=== PATIENT | female | born 1990 | race Caucasian/White ===

== ENCOUNTER 2016-07-13 23:31 | Emergency (ER) | payer MEDICAID ==
[~2016-07-13] VITALS: Ht 162.6 cm; Wt 95.3 kg
[~2016-07-13 23:31] MED LIST: AMOX-358 PO; AMOX500C2 PO; ATOR40TA70; BENZ-13 PO; CEPH500T PO; CETI10CA PO; D-ME118S33 PO; DICY10CA12 PO; DOCU-143 PO; DOXY100C2; FAMO20TA3 PO; HYDR-3812 PO; Ibuprofen PO; METR500T21 PO; NORG1TAB15 PO; NORG1TAB16; PRAV20TA3 PO; PRD20T PO; PREN1TAB71 PO; PSEU-137 PO; SULF1TAB35 PO; TOPI50TA37 PO
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
[2016-07-13] MEDS ORDERED: RX-CLINDAMYCIN 150 MG (CLEOCIN) CAP PPK#4 PO STA (23:59)
[2016-07-14] MEDS ORDERED: LIDOCAINE 2% VISCOUS 15 ML UDC MM ONE
[2016-07-14] MEDS ORDERED: CEFD300C3 PO (00:03)
[2016-07-14] MEDS ORDERED: CEFDINIR 300 MG (OMNICEF) CAP PO ONE ×2 (00:03→00:15)
[2016-07-14] MEDS ORDERED: LIDO15SO2 MM (00:04)
--- NOTE | 2016-07-14 00:04 | ED EENT ---
History of Present Illness General Chief Complaint: Facial Problems Stated Complaint: FAICAL PAIN EAR ACHE Nursing Triage Note: Pt presents to ED with c/o L jaw pain. Afebrile in triage. Pt denies injury, reports this may be d/t seasonal allergies. Pt is , unaware of due date. LMP 05-14-16. Source: patient History of Present Illness Time seen by provider: 23:45 Initial Comments PT C/O PAIN TO LEFT SIDE OF FACE AND JAW FOR A FEW DAYS PAIN COMES AND GOES PT HAS ONGOING PROBLEMS WITH A BAD TOOTH TO LEFT LOWER 3RD MOLAR, WORSE FOR THE LAST 2 MONTHS NO FEVER NO SWELLING TO FACE/CHEEK/JAW NO RASH PT HAD SAME IN MAY AND WAS SEEN IN ER AND [facility] AND GIVEN RX FOR UNKNOWN ANTIBIOTICS AT [facility]. --STATES THOSE SYMPTOMS WENT AWAY PT HAS SEEN DR. SANTOS IN THE PAST --LAST VISIT WAS OVER 6 MONTHS AGO. HAS NOT ATTEMPTED TO CONTACT HIM FOR THIS PROBLEM PT HAS NOT TAKEN ANYTHING FOR PAIN AT ANY TIME PT STATES SHE IS 8 WEEKS --LMP 05/14/17--IS SEEING DR. MAO FOR OB CARE AND IS TO HAVE AN ULTRASOUND THIS WEEK PCP: [facility], SAADIA ROSALES Allergies and Home Medications Allergies Coded Allergies: erythromycin base (Unverified Allergy, Unknown, reports that her mother said to say that she was allergic to, 01/14/16) Home Medications Amoxicillin/Potassium Clav 1 Each Tablet #14 1 EACH PO BID Prescribed by: LA[place] LANDA on 06/01/161955 Atorvastatin Calcium 40 Mg Tablet #30 (Reported) Cefdinir 300 Mg Capsule #20 300 MG PO BID Prescribed by: ISIDRO ESQUEDA on 07/14/16 0003 Doxycycline Hyclate 100 Mg Capsule #20 (Reported) Famotidine 20 Mg Tablet 20 MG PO HS (Reported) Lidocaine HCl 15 Ml Solution #1 15 ML MM Q 1-2 HOURS Prescribed by: ISIDRO ESQUEDA on 07/14/16 0004 Norgestrel-Ethinyl Estradiol 1 Each Tablet #84 (Reported) Pseudoephedrine HCl 30 Mg Tablet #10 30 MG PO Q8H PRN PRN CONGESTION Prescribed by: LA[place] LANDA on 06/01/161955 Topiramate 50 Mg Tablet 50 MG PO BID (Reported) Review of Systems Constitutional: no symptoms reported Eyes: No Symptoms Reported Ears: No Symptoms Reported Nose: no symptoms reported Mouth: see HPI Throat: no symptoms reported Respiratory: no symptoms reported Cardiovascular: no symptoms reported Musculoskeletal: no symptoms reported Skin: no symptoms reported Neurological: No Symptoms ReportedDenies Headache, Denies Numbness, Denies Paresthesia Hematologic/Lymphatic: No Symptoms Reported Immunological/Allergic: no symptoms reported Past Iigvjge-Eztppz-Urbtji Hx Patient Social History Alcohol Use: Denies Use Recreational Drug Use: No Smoking Status: Current Everyday Smoker (1 PPD) Type Used: Cigarettes Recent Foreign Travel: No Contact w/Someone Who Travel: No Recent Infectious Disease Expo: No Recent Hopitalizations: No Physical Abuse Screen: No Sexual Abuse: No Immunizations Up To Date Tetanus Booster (TDap): Less than 5yrs PED Vaccines UTD: Yes Seasonal Allergies Seasonal Allergies: Yes Surgeries HX Surgeries: Yes (L WRIST) Surgeries: Appendectomy, Orthopedic Respiratory Hx Respiratory Disorders: No Cardiovascular Hx Cardiac Disorders: Yes Cardiac Disorders: High Cholesterol Neurological Hx Neurological Disorders: Yes Neurological Disorders: Headaches /Migraines Reproductive System : Yes Hx : 3 Hx Para: 2 Hx Reproductive Disorders: Yes Female Reproductive Disorders: Menstrual Problems Genitourinary Hx Genitourinary Disorders: No Gastrointestinal Hx Gastrointestinal Disorders: Yes (lactose intolerance) Gastrointestinal Disorders: Gastroesophageal Reflux, Irritable Bowel Musculoskeletal Hx Musculoskeletal Disorders: No Endocrine Hx Endocrine Disorders: No HEENT HX ENT Disorders: Yes (DENTAL CARIES) Cancer Hx Cancer: No Psychosocial Hx Psychiatric Problems: No Integumentary HX Skin/Integumentary Disorder: No Blood Transfusions Hx Blood Disorders: No Adverse Reaction to a Blood Tr: No Family Medical History Significant Family History: No Pertinent Family Hx Family Medial History: Patient reports no known family medical history. Physical Exam Vital Signs Vital Sign - Last 12Hours 07/13/16 23:37 Temp 98.0 Pulse 75 Resp 18 B/P 139/84 Pulse Ox 98 O2 Delivery Room Air General Appearance: WD/WN no apparent distress obese other (SITTING - STYLE. DOES NOT APPEAR TO BE IN ANY DISCOMFORT. ) Eyes: bilateral eye EOMI, bilateral eye PERRL, bilateral eye normal inspection Ears: bilateral ear TM normal, bilateral ear auricle normal, bilateral ear canal normal Nose: normal inspection Mouth/Throat: dental tendernessNo excessive drooling, No mandibular swelling, No maxillary swelling, other (DENTAL CARIES TO LEFT LOWER 3RD MOLAR, AND TOOTH TENDER TO PERCUSSION. NO SIGNIFICANT SWELLING AROUND TOOTH. NO FACIAL / MANDIBULAR SWELLING. NO RASH. NO MOTOR/SENSORY DEFICITS) Neck: non-tender full range of motion supple normal inspectionNo lymphadenopathy (R), No lymphadenopathy (L) Cardiovascular: regular rate, rhythm no murmur Respiratory: normal breath sounds no respiratory distress no accessory muscle use Gastrointestinal: non tender soft Neurologic/Psychiatric: dobby loom fixer II-XII nml as tested no motor/sensory deficits alert oriented x 3 Skin: normal color warm/dry Progress/Results/Core Measures Results/Orders My Orders Orders-ISIDRO ESQUEDA DO Rx-Clindamycin Capsule (Rx-Cleocin Capsu (07/13/16 23:59) Lidocaine 2% Viscous 15 Ml (Xylocaine Vi (07/14/16 00:00) Cefdinir Capsule (Omnicef Capsule) (07/14/16 00:15) Acetaminophen Tablet/Caplet (Tylenol T (07/14/16 00:11) Acetaminophen Tablet (Tylenol Tablet) (07/14/16 00:30) Cefdinir Capsule (Omnicef Capsule) (07/14/16 00:03) Medications Given in ED Current Medications Medications Dose Ordered Sig/Jessica Route Start Time Stop Time Status Last Admin Dose Admin Acetaminophen 325 mg STK-MED ONCE .ROUTE 07/14/16 00:11 07/14/16 00:18 DC 07/14/16 00:19 650 MG Cefdinir 300 mg ONCE ONCE PO 07/14/16 00:15 07/14/16 00:22 DC 07/14/16 00:18 300 MG Lidocaine HCl 5 ml ONCE ONCE MM 07/14/16 00:00 07/14/16 00:01 DC 07/14/16 00:18 5 ML Vital Signs/I&O Vital Sign - Last 12Hours 07/13/16 07/14/16 23:37 00:22 Temp 98.0 98.0 Pulse 75 75 Resp 18 18 B/P 139/84 Pulse Ox 98 98 O2 Delivery Room Air Blood Pressure Mean: 102 Departure Impression Impression: Primary Impression: Dental caries Additional Impression: Left facial pain Disposition: 01 HOME, SELF-CARE Condition: Stable Departure-Patient Inst. Referrals: KIARA MAO MD (PCP) Primary Care Physician ESTEFANIA TORRES DO (Family) Primary Care Physician Patient Instructions: Dental Pain (DC), Tooth Decay, Adult (DC) Add. Discharge Instructions: TYLENOL NEEDED FOR PAIN ALTERNATE ICE AND HEAT TO AREA AT 20 MINUTE INTERVALS NEEDED FOR COMFORT SOFT FOODS FOLLOW UP WITH DR. SANTOS THIS WEEK FOR FURTHER CARE All discharge instructions reviewed with patient and/or family. Voiced understanding. Scripts Lidocaine HCl (Lidocaine HCl Viscous)15 Ml [id number] Ml MM Q 1-2 HOURS Pain #1 EA Prov:ISIDRO ESQUEDA DO 07/14/16 Cefdinir 300 Mg [id number] Mg PO BID FOR INFECTION #20 CAP Prov:ISIDRO ESQUEDA DO 07/14/16 ISIDRO ESQUEDA DO Jul 14, 2016 00:04
[2016-07-14] MEDS ORDERED: ACETAMINOPHEN 325 MG TABLET/CAPLET (TYLENOL) ONE (00:11)
[2016-07-14 00:22] VITALS: BP 139/84
[2016-07-14] MEDS ORDERED: ACETAMINOPHEN 500 MG TAB (TYLENOL) PO ONE (00:30)
== END 2016-07-14 00:22 | disposition home or self-care (01) ==
LOC: EDUNIT# 23:31 → ER 23:34
DX: K02.9 Dental caries, unspecified (principal); O99.331 Smoking (tobacco) complicating pregnancy, first trimester; F17.210 Nicotine dependence, cigarettes, uncomplicated; Z3A.08 8 weeks gestation of pregnancy
CPT/HCPCS: 99283

== ENCOUNTER → 2016-07-17 | Outpatient (CLI) | payer MEDICAID ==
[~2016-07-17] MED LIST changes: +CEFD300C3 PO; +LIDO15SO2 MM
--- OUTSIDE RECORDS SUMMARY | 2016-07-17 10:26 | XMS REPORT | Continuity of Care Document ---
Author Author [facility] Organization [facility] Address Unknown Phone Unavailable Care Team Providers Care Glassware Maker Demonstrator Name Role Phone ESTEFANIA TORRES DO PCP Insurance Providers Payer Name Policy Number Subscriber Name Relationship [facility] [id number] Mary Kay Pichardo Self / Same As Patient Advance Directives Directive Response Recorded Date/Time Advance Directives No 02/11/16 10:38pm Health Care Power of Tractor Engine Assembler No 02/11/16 10:38pm Organ Donor Yes 02/11/16 [...] Discharge/Depart Date Attending Provider Discharged Recurring [facility] 02/18/16 10:30am 11:59pm CARISSA CARRERO MD
--- NOTE | 2016-07-17 13:52 | Diagnostic Imaging Report ---
OB ultrasound. INDICATION: Check size and dates. FINDINGS: There are no recent studies available for comparison. There is a gestational sac within the uterus containing a single live fetus. heart motion is noted and a rate of 161 bpm is recorded. The crown-rump length suggests the estimated gestational age is 9 weeks 2 days +/- 1 week. There are no obvious abnormalities identified. The amniotic fluid volume is within normal limits. At this time, it is not certain where the placenta will develop. There is no solid pelvic mass or free fluid collection identified. There is a 2.2 x 2.2 x 2.2 cm cyst associated with the right ovary. This may represent a corpus luteum cyst. The left ovary is unremarkable. IMPRESSION: 1. There is a single live intrauterine of approximately 9 weeks 2 days gestation +/- 1 week. The EDC is February 17, 2017. 2. There are no obvious abnormalities identified. If a more sensitive evaluation of anatomy is desired, then a follow-up exam in 10-12 weeks will be recommended. 3. There is a small benign-appearing right ovarian cyst. Dictated by: Dictated on workstation # [id number]
== END ==
LOC: RAD 10:22
PROVIDERS: ATTEND Family Medicine
DX: Z34.81 Encounter for supervision of other normal pregnancy, first trimester (principal)
CPT/HCPCS: 76801

== ENCOUNTER → 2016-09-18 | Outpatient (CLI) | payer MEDICAID ==
--- NOTE | 2016-09-18 18:04 | Diagnostic Imaging Report ---
OB ultrasound. INDICATION: survey. FINDINGS: The heart rate is 146 beats per minute. The placenta is posterior. No placenta previa. growth parameters include normal appearance of the posterior fossa, the four-chamber view, the stomach, the cord insertion, three-vessel cord, and the urinary bladder. The kidneys demonstrate no hydronephrosis or cystic mass. Only the upper aspect of the spine is seen with no definitive abnormality. The mid and lower spine is the not well seen. The growth parameters are biparietal diameter at 18 weeks and 6 days, head circumference 18 weeks and 2 days, abdominal circumference 18 weeks and 4 days, and femur length at 17 weeks and 5 days. These average at 18 weeks and 3 days. The current gestational age based on the first trimester ultrasound dating is 18 weeks and 3 days. IMPRESSION: Appropriate interval growth. Short-term follow-up is recommended to reevaluate spine. Dictated by: Dictated on workstation # [id number]
== END ==
LOC: RAD 13:31
PROVIDERS: ATTEND Family Medicine
DX: Z36 Encounter for antenatal screening of mother (principal); Z3A.18 18 weeks gestation of pregnancy
CPT/HCPCS: 76805

== ENCOUNTER → 2016-10-09 | Outpatient (CLI) | payer MEDICAID ==
--- NOTE | 2016-10-09 18:02 | Diagnostic Imaging Report ---
INDICATION: Further evaluation of anatomy not well seen on initial anatomy survey. COMPARISON: 09/18/2016. TECHNIQUE: Multi-projectional grayscale and Doppler imaging of the gravid uterus was performed. FINDINGS: Single live intrauterine with a heart rate of 142 beats per minute. Fetus is in variable position. The spine was much better visualized on today's examination and is normal in appearance. IMPRESSION: 1. spine is normal. Remainder of the anatomy survey was performed on 09/18/2016. Dictated by: Dictated on workstation # [id number]
== END ==
LOC: RAD 13:28
PROVIDERS: ATTEND Family Medicine
DX: Z36 Encounter for antenatal screening of mother (principal)
CPT/HCPCS: 76816

== ENCOUNTER 2016-12-07 16:52 | Outpatient (CLI) | payer MEDICAID ==
[~2016-12-07] VITALS: Ht 162.6 cm; Wt 115.7 kg
[2016-12-07] MEDS ORDERED: PREN1TAB86 PO (17:59)
[2016-12-07] MEDS ORDERED: ACET325T38 PO (18:00)
--- NOTE | 2016-12-08 13:43 | Physician Query-Final Dx ---
[facility] [facility] 12/08/16 1343: Clinic Account Progress/Dx Physician Query: Please give diagnosis Date of Service Dec 07, 2016 at 16:52 ANOOP HWANG MD 12/16/166: Clinic Account Progress/Dx DIAGNOSIS: Diagnosis 29 weeks gestation Abdominal pain Pelvic pressure [place] [facility] Dec 08, 2016 13:43 ANOOP HWANG MD Dec 16, 2016 20:56
== END 2016-12-07 18:10 | disposition home or self-care (01) ==
LOC: WSo 16:52 → LDRP 16:55 → WSo 18:10
PROVIDERS: ATTEND Family Medicine
DX: O99.89 Other specified diseases and conditions complicating pregnancy, childbirth and the puerperium (principal); R10.2 Pelvic and perineal pain; Z3A.29 29 weeks gestation of pregnancy
CPT/HCPCS: 99213

== ENCOUNTER → 2016-12-29 | Outpatient (CLI) | payer MEDICAID ==
[~2016-12-29] MED LIST changes: +ACET325T38 PO; +IBUP-1773 PO; +PREN1TAB86 PO
--- NOTE | 2016-12-29 14:22 | Diagnostic Imaging Report ---
INDICATION: Increased fundal height. TECHNIQUE: Multiple real-time grayscale images were obtained over the gravid uterus. COMPARISON: 09/18/2016. FINDINGS: heart rate is 135 beats per minute. The placenta is fundal. No placenta previa. The presentation varied during the exam. The amniotic fluid index is 20 cm. Biometrical measurements are as follows: Biparietal 8.6 cm, age 34 weeks 5 days, at the 89th percentile. Head circumference 30.59 cm, age 34 weeks 1 days, at 44th percentile. Abdominal circumference 30.81 cm, age 34 weeks 6 days, at 93rd percentile. Femur length 6.34 cm, age 32 weeks 6 days, at 36th percentile. Sonographic estimate age: 34 weeks 1 days. Sonographic estimated date of delivery: 02/08/2017. Estimated Weight: 2358 gm (+/- 344 gm). LMP percentile: 80%. heart rate: 135 beats per minute. number: 1 of 1. IMPRESSION: measurements near the upper limits of normal with the abdominal circumference measuring at the 93rd percentile. Dictated by: Dictated on workstation # [id number]
== END ==
LOC: RAD 09:49
PROVIDERS: ATTEND Family Medicine
DX: Z3A.34 34 weeks gestation of pregnancy; Z36 Encounter for antenatal screening of mother
CPT/HCPCS: 76816

== ENCOUNTER 2017-01-25 21:03 | Outpatient (CLI) | payer MEDICAID ==
[~2017-01-25] VITALS: Ht 162.6 cm; Wt 128.0 kg
[~2017-01-25 21:03] MED LIST changes: -IBUP-1773 PO
[2017-01-25 21:45] LABS: KETONES,URINE 2+ (NEGATIVE); LEUKOCYTE ESTERASE ,URINE 2+ (NEGATIVE); NITRITE,URINE NEGATIVE (NEGATIVE); PH,URINE 5 (5-9); PROTEIN,URINE 2+ (NEGATIVE); UROBILINOGEN,URINE NORMAL (NORMAL)
[2017-01-25 21:50] LABS: BILIRUBIN,URINE 1+ (NEGATIVE)
[2017-01-25 22:01] LABS: WBC,URINE 25-50 /HPF
[2017-01-25 22:02] LABS: SQUAMOUS EPITHELIAL CELL,UR >50 /HPF
[2017-01-25 22:12] VITALS: BP 141/89
--- NOTE | 2017-01-26 11:30 | Physician Query-Final Dx ---
[facility] [facility] 01/26/17 1130: Clinic Account Progress/Dx Physician Query: Please give diagnosis Date of Service Jan 25, 2017 at 21:03 ANOOP HWANG MD 01/30/17 0919: Clinic Account Progress/Dx DIAGNOSIS: Diagnosis 36 weeks gestation Decreased movement Contractions [place] Jan 26, 2017 11:30 ANOOP HWANG MD Jan 30, 2017 09:19
== END 2017-01-25 22:24 | disposition home or self-care (01) ==
LOC: LDRP 21:03 → WSo 21:03
PROVIDERS: ATTEND Family Medicine
DX: O36.8130 Decreased fetal movements, third trimester, not applicable or unspecified (principal); O47.03 False labor before 37 completed weeks of gestation, third trimester; Z3A.36 36 weeks gestation of pregnancy
CPT/HCPCS: 81000; 87077; 87088; 87186; 99213

== ENCOUNTER 2017-02-07 00:45 | Outpatient (CLI) | payer MEDICAID ==
[~2017-02-07] VITALS: Ht 162.6 cm; Wt 126.6 kg
[2017-02-07 01:27] LABS: BILIRUBIN,URINE NEGATIVE (NEGATIVE); KETONES,URINE 2+ (NEGATIVE); LEUKOCYTE ESTERASE ,URINE 1+ (NEGATIVE); NITRITE,URINE NEGATIVE (NEGATIVE); PH,URINE 6 (5-9); PROTEIN,URINE 2+ (NEGATIVE); UROBILINOGEN,URINE NORMAL (NORMAL)
[2017-02-07 01:34] LABS: SQUAMOUS EPITHELIAL CELL,UR >50 /HPF; WBC,URINE 0-2 /HPF
[2017-02-07 02:00] VITALS: BP 137/76
[2017-02-07 02:16] VITALS: BP 143/72
--- NOTE | 2017-02-09 11:44 | Physician Query-Final Dx ---
[facility] [facility] 02/09/17 1144: Clinic Account Progress/Dx Physician Query: Please give diagnosis Date of Service Feb 07, 2017 at 00:45 PEPE MEEK MD 03/02/17 1312: Clinic Account Progress/Dx DIAGNOSIS: Diagnosis Abdominal pain Leaking fluid [place] [facility] Feb 09, 2017 11:44 PEPE MEEK MD Mar 02, 2017 13:12
[2017-02-12] MEDS ORDERED: HYDR-3812 PO (07:52)
[2017-02-12] MEDS ORDERED: IBUP-1773 PO (07:52)
== END 2017-02-07 02:33 | disposition home or self-care (01) ==
LOC: WSo 00:45 → LDRP 00:46 → WSo 02:33
PROVIDERS: ATTEND Family Medicine
DX: O26.93 Pregnancy related conditions, unspecified, third trimester (principal); R10.9 Unspecified abdominal pain; Z3A.38 38 weeks gestation of pregnancy
CPT/HCPCS: 81000; 87077; 87088; 87186; 99214

== ENCOUNTER → 2017-02-09 | Outpatient (CLI) | payer MEDICAID ==
--- NOTE | 2017-02-09 14:27 | Diagnostic Imaging Report ---
INDICATION: position. COMPARISON: 12/29/2016. FINDINGS: heart tones are documented at 144 beats per minute. The fetus is in cephalic presentation. The amniotic fluid volume is normal. Largest vertical pocket is 6 cm. Cervix is well visualized and measures 5 cm. The placenta is advanced and is anterior. IMPRESSION: 1. Cephalic presentation. 2. Normal amniotic fluid volume. Dictated by: Dictated on workstation # [id number]
== END ==
LOC: RAD 13:41
PROVIDERS: ATTEND Family Medicine
DX: Z36 Encounter for antenatal screening of mother (principal); Z3A.00 Weeks of gestation of pregnancy not specified
CPT/HCPCS: 76815

== ENCOUNTER 2017-02-10 06:57 | Inpatient (IN) | payer MEDICAID ==
[2017-02-10] VITALS (49 sets, daily range): BP systolic 96–174; BP diastolic 52–100
[~2017-02-10] VITALS: Ht 163.8 cm; Wt 129.4 kg
--- NOTE | 2017-02-10 07:15 | History & Physical-OB ---
OB - Chief Complaint & HPI Date/Time Date of Admission: Date of Admission: Feb 10, 2017 at 06:57 Time Seen by Provider: 07:10 Chief Complaint/History OB-Reason for Admission/Chief: Induction of Labor Hx : 3 Hx Para: 2 Expected Date of Delivery: Feb 17, 2017 Gestational Age in Weeks: 39 Gestational Age in Days: 0 Admission Nurse Assessment Rev: Yes History of Labs GBS negative Allergies and Home Medications Allergies Coded Allergies: erythromycin base (Unverified Allergy, Unknown, reports that her mother said to say that she was allergic to, 01/14/16) Home Medications Acetaminophen 325 Mg Tablet, 1,000 MG PO PRN PRN for PAIN-MILD, (Reported) Famotidine 20 Mg Tablet, 20 MG PO HS, (Reported) Vit W-Ca,Fe,FA(<1 mg) 1 Each Tablet, 1 EACH PO DAILY, (Reported) OB - History Hx of Present Care: Yes Ultrasounds: Normal mid trimester US Obstetrical Complications: None Medical Complications: None Obstetrical History Hx Termination: No Hx Multiple Gestation: No Hx Stillbirth: No Hx Complication: No Hx Induced Hypertens: No Hx Maternal Gestational Diabet: Yes (pt. denies, states borderline w/1st del) Delivery History Hx Dystocia: No Hx Large For Gestational Age I: Yes Hx Small for Gestational Age I: No Hx Section: No Hx Vaginal Delivery Post C-Sec: No Hx Blood Disorders: No Adverse Rxn to Tranfusion: No Patient Past Medical History No chronic medical problems Immunizations Hepatitis A: No Hepatitis B: No Tetanus Booster (TDap): Less than 5yrs OB - Admission Exam Physical Exam Date Seen by Provider: Feb 10, 2017 Time Seen by Provider: 07:10 HEENT: Moist Membranes Heart: Rhythm Normal Lungs: Clear Abdomen: Non tender Cervical Dilatation: 3cm Effacement: 25% Station: -3 Membranes: Intact Heart Rate: 140's Accelerations: Accelerations Present Decelerations: No Decelerations Short Term Variability: Present Genetic Scientist Variability: Average (6-25) Contractions on Admission: >10 Minutes Apart Intensity: Mild Tim Scoring Tool (Modified) Dilation (cm): 3-4cm (2) Effacement (%): 0-30% (0) Descent/Station: -3 (0) Cervix Consistency: Soft (2) Cervix Position: Middle/Mid-Position (1) Add 1 point for: Each previous vaginal delivery (1) Tim Score: 7 OB - Assessment/Plan/Diagnosis Assessment Assessment: induction of labor (at 39 weeks.) Plan Plan: Induction Induction Method: AROM (with pit to follow if needed) Other Plan desires epidural KIARA MAO MD Feb 10, 2017 07:15
[2017-02-10] MEDS ORDERED: OXYTOCIN/NORMAL SALINE 500 ML IV SCH ×2 (07:22→16:48)
[2017-02-10] MEDS ORDERED: D5 LR IV SOLUTION 1,000 ML IV SCH (07:22)
[2017-02-10 07:54] LABS: BASOPHILS % (AUTO) 0 % (0-10); EOSINOPHILS # (AUTO) 0.1 10^3/uL (0.0-0.3); EOSINOPHILS % (AUTO) 1 % (0-10); LYMPHOCYTES % (AUTO) 23 % (12-44); MEAN CORPUSCULAR HEMOGLOBIN 30 PG (25-34); MEAN CORPUSCULAR HGB CONC 34 G/DL (32-36); MEAN CORPUSCULAR VOLUME 88 FL (80-99); MEAN PLATELET VOLUME 11.3 FL (7.4-10.4); MONOCYTES # (AUTO) 0.6 X 10^3 (0.0-1.0); MONOCYTES % (AUTO) 7 % (0-12); NEUTROPHILS # (AUTO) 5.9 X 10^3 (1.8-7.8); NEUTROPHILS % (AUTO) 68 % (42-75); PLATELET COUNT 151 10^3/uL (130-400); RED BLOOD COUNT 4.04 10^6/uL (4.35-5.85); RED CELL DISTRIBUTION WIDTH 14.9 % (10.0-14.5); WHITE BLOOD COUNT 8.7 10^3/uL (4.3-11.0)
[2017-02-10] MEDS ORDERED: SUFENTA 0.6MCG/ML BUPIVA 0.125 100 ML ONE (08:27)
[2017-02-10] MEDS ORDERED: fentaNYL INJECTION 100 MCG/2 ML AMP ONE (08:29)
[2017-02-10] MEDS ORDERED: BUPIVACAINE 0.25% 30 ML (SENSORCAINE) VIAL ONE (08:29)
--- OUTSIDE RECORDS SUMMARY | 2017-02-10 10:20 | XMS REPORT ---
Author Author GIULIA RAE Organization [employer] Address Unknown Phone Unavailable Care Team Providers Care Restaurant Mgr Name Role Phone GIULIA RAE CP Unavailable Allergies, Adverse Reactions, Alerts Substance Reaction Event Type N.K.D.A. Info Not Available Non Drug Allergy Problems Problem Type Condition Code Onset Dates Condition Status Assessment Sore throat J02.9 Active Problem Sore throat J02.9 Active Medications Medication Code System Code Instructions Start Date End Date Status Dosage Triamcinolone Acetonide [facility] [address]-00 0.1 % Externally Twice a day December 05, 2014 1 application to affected area Pepcid [facility] [address]-92 20 MG Orally Once a day 1 tablet at bedtime Anti-Diarrheal [facility] [address]-24 not defined Colace [facility] [address]-65 100 MG Orally 2 times a day 1 capsule as needed Vitamins NDC 0 (Dis) Orally Once a day 1 tablet Amoxicillin [facility] [address]-78 500 MG Orally every 12 hrs May 22, 2015 Jun 01, 2015 2 tablets Procedures Procedure Coding System Code Date Office Visit, Est Pt., Level 3 CPT-4 15269 May 22, 2015 STREP A ASSAY W/OPTIC CPT-4 56827 May 22, 2015 Vital Signs Date/Time: May 22, 2015 Temperature 97.7 F Weight 239.8 lbs Height 65 in BMI 39.90 Index Blood Pressure Diastolic 82 mmHg Blood Pressure Systolic 120 mmHg Cardiac Monitoring Heart Rate 89 bpm Results No Known Results Summary Purpose [employer] Submission
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
--- OUTSIDE RECORDS SUMMARY | 2017-02-10 10:21 | XMS REPORT ---
Author Author CRISTA ROSALES [facility] [employer] Address Unknown Phone Unavailable Care Team Providers Care Railroad Brakeman Name Role Phone CRISTA ROSALES CP Unavailable Allergies No Known Allergies Problems Problem Type Condition Code Onset Dates Condition Status Problem Galactorrhea in female N64.3 Active Problem Pain in left knee M25.562 Active Problem Pain in right knee M25.561 Active Problem History of anemia Z86.2 Active Problem Neutropenia D70.9 Active Problem Abnormal thyroid blood test R94.6 Active Problem Mixed hyperlipidemia E78.2 Active Problem Panic attacks F41.0 Active Problem History of palpitations Z87.898 Active Problem Acute maxillary sinusitis, recurrence not specified J01.00 Active Problem Major depressive disorder, single episode, unspecified F32.9 Active Problem Overweight E66.3 Active Problem Migraine headache G43.909 Active Problem Leukopenia D72.819 Active Problem Headache R51 Active Problem History of long-term use of multiple prescription drugs Z92.29 Active Problem Unprotected sex Z72.51 Active Problem Pelvic pain R10.2 Active Problem High risk sexual behavior Z72.51 Active Problem Heart burn R12 Active Problem Contraception management Z30.9 Active Medications No Known Medications Results No Known Results Summary Purpose [employer] Submission
--- OUTSIDE RECORDS SUMMARY | 2017-02-10 10:21 | XMS REPORT ---
Author Author CRISTA ROSALES [facility] Address [address] [place] [address] Care Team Providers Care Hog Operator Name Role Phone CRISTA ROSALES Unavailable PROBLEMS Type Condition ICD9-CM Code [id number] Code Onset Dates Condition Status SNOMED Code Problem Headache R51 Active 748219500 Problem Heart burn R12 Active 31141536 Problem Migraine headache G43.909 Active 32423242 Assessment History of UTI Z87.440 Feb, Active 5319872508541 Problem Mixed hyperlipidemia E78.2 Active 409405186 Problem History of anemia Z86.2 Active 767356849 Problem Panic attacks F41.0 Active 18712346 Problem History of long-term use of multiple prescription drugs Z92.29 Active 949547485 Problem Abnormal thyroid blood test R94.6 Active 992683788 Problem Major depressive disorder, single episode, unspecified F32.9 Active 37499216 ALLERGIES Substance Reaction Event Type Date Status N.K.D.A. Unknown Non Drug Allergy Feb, Unknown SOCIAL HISTORY No smoking Hx information available PLAN OF CARE Activity Details Pending Test CMP 2 - 3 Days,Reason: VITAL SIGNS Height 65 in 2016-03-05 Weight 187.6 lbs 2016-03-05 Heart Rate 88 bpm 2016-03-05 Respiratory Rate 16 2016-03-05 BMI 31.21 kg/m2 2016-03-05 Blood pressure systolic 132 mmHg 2016-03-05 Blood pressure diastolic 78 mmHg 2016-03-05 MEDICATIONS Medication Instructions Dosage Frequency Start Date End Date Duration Status Pravastatin Sodium 20 mg Orally Once a day 1 tablet 24h Nov, Active Topamax 50 MG Orally bid 1 tablet 12h 30 Active Ortho Tri-Cyclen (28) 0.18/0.215/0.25 MG-35 MCG Orally Once a day 1 tablet 24h Aug, 28 day(s) Active Colace 100 MG Orally 2 times a day 1 capsule as needed 12h Active Vitamins (Dis) Orally Once a day 1 tablet 24h Active Pepcid 20 mg Orally Once a day 1 tablet at bedtime 24h Active RESULTS Name Result Date Reference Range UA LONG DIP (IN HOUSE) 2016-03-05 Lot # Exp date Clarity clear Color yellow Odor GLU negative GERRI negative KET negative SG 1.025 BLO negative pH 6.5 Protein negative URO 0.2 NIT negative ARNOLDO negative Lot # Exp date TSH 2016-03-05 TSH 1.110 0.450-4.500 PROCEDURES Procedure Date Ordered Related Diagnosis Body Site URINALYSIS, AUTO, W/O SCOPE Mar 05, 2016 ASSAY THYROID STIM HORMONE Mar 05, 2016 VENIPUNCT, ROUTINE* Mar 05, 2016 Office Visit, Est Pt., Level 3 Mar 05, 2016 COMPREHEN METABOLIC PANEL Mar 05, 2016 IMMUNIZATIONS No Known Immunizations
--- OUTSIDE RECORDS SUMMARY | 2017-02-10 10:21 | XMS REPORT ---
Author Author MIGUEL CHRISTIAN [facility] eClinicalWorks Address Unknown Phone Unavailable Care Team Providers Care Supervisor Char House Name Role Phone MIGUEL CHRISTIAN CP Unavailable Allergies No Known Allergies Problems Problem Type Condition Code Onset Dates Condition Status Problem Galactorrhea in female N64.3 Active Problem Pain in left knee M25.562 Active Problem Pain in right knee M25.561 Active Problem History of anemia Z86.2 Active Problem Neutropenia D70.9 Active Problem Abnormal thyroid blood test R94.6 Active Assessment Major depressive disorder, single episode, unspecified F32.9 Active Assessment Panic attacks F41.0 Active Problem Mixed hyperlipidemia E78.2 Active Problem [...] management Z30.9 Active Medications No Known Medications Procedures Procedure Coding System Code Date Psych diagnostic evaluation, established patient CPT-4 06308 December 26, 2015 Results No Known Results Summary Purpose eClinicalWorks Submission
--- OUTSIDE RECORDS SUMMARY | 2017-02-10 10:22 | XMS REPORT ---
Author Author CRISTA ROSALES [facility] Address [address] [place] [address] Care Team Providers Care Senior Hr Generalist Name Role Phone CRISTA ROSALES Unavailable PROBLEMS Type Condition ICD9-CM Code [id number] Code Onset Dates Condition Status SNOMED Code Problem Headache R51 Active 326064199 Problem Heart burn R12 Active 68195510 Problem Migraine headache G43.909 Active 92729509 Problem Mixed hyperlipidemia E78.2 Active 578953081 Problem History of anemia Z86.2 Active 667988497 Problem Panic attacks F41.0 Active 45671095 Problem History of long-term use of multiple prescription drugs Z92.29 Active 724636078 Problem Abnormal thyroid blood test R94.6 Active 577854156 Problem Major depressive disorder, single episode, unspecified F32.9 Active 95384362 ALLERGIES Unknown Allergies SOCIAL HISTORY No smoking Hx information available PLAN OF CARE VITAL SIGNS MEDICATIONS Medication Instructions Dosage Frequency Start Date End Date Duration Status Fish Oil Feb, Apr, Active RESULTS No Results PROCEDURES No Known procedures IMMUNIZATIONS No Known Immunizations
--- OUTSIDE RECORDS SUMMARY | 2017-02-10 10:22 | XMS REPORT ---
Author Author YEN THACKER [facility] eClinicalWorks Address Unknown Phone Unavailable Care Team Providers Care Vascular Technician Name Role Phone YEN THACKER CP Unavailable Allergies, Adverse Reactions, Alerts Substance [...] Abnormal thyroid blood test R94.6 Active Assessment Upper respiratory tract infection, unspecified type J06.9 Active Problem Mixed hyperlipidemia E78.2 Active Problem [...] Active Problem Contraception management Z30.9 Active Medications Medication Code System Code Instructions Start Date End Date Status Dosage Pepcid [facility] [address]-71 20 MG Orally Once a day 1 tablet at bedtime Amoxicillin [facility] [address]-57 500 MG Orally 3 times a day January 04, 2016 January 14, 2016 1 tablet PredniSONE [facility] [address]-27 20 mg Orally Once a day January 04, 2016December 2 tablets Topamax [facility] [address]-13 50 MG Orally bid 1 tablet Pravastatin Sodium [facility] [address]-48 20 mg Orally Once a day November 23, 2015 1 tablet Ortho Tri-Cyclen (28) [facility] [address]-03 0.18/0.215/0.25 MG-35 MCG Orally Once a day August 29, 2015 1 tablet Procedures Procedure Coding System Code Date Office Visit, Est Pt., Level 3 CPT-4 28287 January 04, 2016 MEASURE BLOOD OXYGEN LEVEL CPT-4 51333 January 04, 2016 Vital Signs Date/Time: January 04, 2016 Cardiac Monitoring Heart Rate 84 bpm Weight 189.8 lbs Height 65 in Blood Pressure Diastolic 60 mmHg Blood Pressure Systolic 114 mmHg Results No Known Results Summary Purpose eClinicalWorks Submission
--- OUTSIDE RECORDS SUMMARY | 2017-02-10 10:22 | XMS REPORT ---
Author Author CRISTA ROSALES [facility] eClinicalWorks Address Unknown Phone Unavailable Care Team Providers Care Hog Room Supervisor Name Role Phone CRISTA ROSALES CP Unavailable [...]
--- OUTSIDE RECORDS SUMMARY | 2017-02-10 10:22 | XMS REPORT ---
Author Author CRISTA ROSALES [facility] eClinicalWorks Address Unknown Phone Unavailable Care Team Providers Care Vehicle Detailer Name Role Phone CRISTA ROSALES Unavailable Allergies, Adverse Reactions, Alerts Substance Reaction Event Type N.K.D.A. Info Not Available Non Drug Allergy Problems Problem Type Condition Code Onset Dates Condition Status Assessment Headache R51 Active Problem Pain of right thumb M79.644 Active Problem Headache R51 Active Problem Overweight E66.3 Active Assessment Encounter for immunization Z23 Active Assessment Pain of right thumb M79.644 Active Problem Sore throat J02.9 Active Assessment Overweight E66.3 Active Medications Medication Code System Code Instructions Start Date End Date Status Dosage Anti-Diarrheal [facility] [address]-92 not defined Amoxicillin [facility] [address]-44 500 mg Orally Twice a day 1 tablet Triamcinolone Acetonide [facility] [address]-42 0.5 % Externally Twice a day May 24, 2015 1 application to affected area Colace [facility] [address]-68 100 MG Orally 2 times a day 1 capsule as needed Vitamins NDC 0 (Dis) Orally Once a day 1 tablet Pepcid [facility] [address]-08 20 MG Orally Once a day 1 tablet at bedtime Procedures Procedure Coding System Code Date COMPREHEN METABOLIC PANEL CPT-4 59523 May 31, 2015 COMPLETE CBC W/AUTO DIFF WBC CPT-4 80702 May 31, 2015 ASSAY THYROID STIM HORMONE CPT-4 84221 May 31, 2015 SINGLE IMMUNIZATION ADMIN CPT-4 33232 May 31, 2015 Office Visit, Est Pt., Level 4 CPT-4 52835 May 31, 2015 X-RAY EXAM OF HAND CPT-4 90982 May 31, 2015 FLUARIX QUAD (3 & UP)-GSK-2014 CPT-4 06197 May 31, 2015 VENIPUNCT, ROUTINE* CPT-4 99176 May 31, 2015 Vital Signs Date/Time: May 31, 2015 Temperature 97.3 F Weight 236.0 lbs Height 65 in BMI 39.27 Index Blood Pressure Diastolic 76 mmHg Blood Pressure Systolic 122 mmHg Cardiac Monitoring Heart Rate 76 bpm Results Name Result Date Reference Range Unit Abnormality Flag ROUTINE VENIPUNCTURE Immunizations Vaccine Administration Date FLUARIX QUAD (3 & UP)-[facility]-2014May 31, 2015 Summary Purpose eClinicalWorks Submission
--- OUTSIDE RECORDS SUMMARY | 2017-02-10 10:22 | XMS REPORT ---
Author Author CRISTA ROSALES [facility] Address [address] [place] [address] Care Team Providers Care Multimedia Artist Name Role Phone CRISTA ROSALES Unavailable PROBLEMS Type Condition ICD9-CM Code [id number] Code Onset Dates Condition Status SNOMED Code Problem Headache R51 Active 829397098 Problem Heart burn R12 Active 43811280 Problem Migraine headache G43.909 Active 50763810 Problem Mixed hyperlipidemia E78.2 Active 389387968 Problem History of anemia Z86.2 Active 329858307 Problem Panic attacks F41.0 Active 73126384 Problem History of long-term use of multiple prescription drugs Z92.29 Active 270048541 Problem Abnormal thyroid blood test R94.6 Active 283700782 Problem Major depressive disorder, single episode, unspecified F32.9 Active 78536578 ALLERGIES Unknown Allergies SOCIAL HISTORY No smoking Hx information available PLAN OF CARE VITAL SIGNS MEDICATIONS Medication Instructions Dosage Frequency Start Date End Date Duration Status Fish Oil 1000 MG Orally Once a day at hs 2 tablets Feb, Active RESULTS No Results PROCEDURES No Known procedures IMMUNIZATIONS No Known Immunizations
--- OUTSIDE RECORDS SUMMARY | 2017-02-10 10:22 | XMS REPORT ---
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
--- OUTSIDE RECORDS SUMMARY | 2017-02-10 10:22 | XMS REPORT ---
Author Author CRISTA ROSALES [facility] eClinicalWorks Address Unknown Phone Unavailable Care Team Providers Care Mixed Animal Veterinarian Name Role Phone CRISTA ROSALES CP Unavailable Allergies, Adverse Reactions, Alerts Substance Reaction Event Type N.K.D.A. Info Not Available Non Drug Allergy Problems Problem Type Condition Code Onset Dates Condition Status Problem Headache R51 Active Problem Migraine headache G43.909 Active Problem Overweight E66.3 Active Problem Contraception management Z30.9 Active Problem High risk sexual behavior Z72.51 Active Problem Galactorrhea in female N64.3 Active Problem Heart burn R12 Active Problem Pelvic pain R10.2 Active Problem Unprotected sex Z72.51 Active Problem History of long-term use of multiple prescription drugs Z92.29 Active Assessment Galactorrhea in female N64.3 Active Assessment Pelvic pain R10.2 Active Assessment Knee pain, right M25.561 Active Problem Neutropenia D70.9 Active Assessment Knee pain, left M25.562 Active Problem Leukopenia D72.819 Active Medications Medication Code System Code Instructions Start Date End Date Status Dosage ZyrTEC NDC 0 10 MG Orally Once a day August 29, 2015 October 28, 2015 1 tablet as needed Colace [facility] [address]-15 100 MG Orally 2 times a day 1 capsule as needed Topamax [facility] [address]-37 50 MG Orally bid 1 tablet Vitamins NDC 0 (Dis) Orally Once a day 1 tablet Pepcid [facility] [address]-69 20 MG Orally Once a day 1 tablet at bedtime Procedures Procedure Coding System Code Date No Charge CPT-4 39984 October 10, 2015 X-RAY EXAM OF KNEE, 1 OR 2 CPT-4 73924 October 10, 2015 LAB NOT BILLED BY [facility] CPT-4 NOBLL October 10, 2015 URINALYSIS, AUTO, W/O SCOPE CPT-4 37645 October 10, 2015 URINE TEST CPT-4 16918 October 10, 2015 Office Visit, Est Pt., Level 5 CPT-4 50878 October 10, 2015 Vital Signs Date/Time: October 10, 2015 Temperature 97.1 F Weight 212.6 lbs Height 65 in BMI 35.37 Index Blood Pressure Diastolic 72 mmHg Blood Pressure Systolic 112 mmHg Cardiac Monitoring Heart Rate 88 bpm Results Name Result Date Reference Range Unit Abnormality Flag TRICHOMONAS (IN HOUSE) ----Lot # [id number] ----Exp date 20151010 ----TRICHOMONAS negative 20151010 ----Control + 20151010 UA LONG DIP (IN HOUSE) ----NIT Negative 20151010 ----Odor No 20151010 ----Color Yellow 20151010 ----URO 0.2 20151010 ----GERRI Negative 20151010 ----Protein Negative 20151010 ----GLU Negative 20151010 ----pH 7.0 20151010 ----Lot # [id number] 20151010 ----Exp date 20151010 ----Lot # [id number] 20151010 ----Clarity Clear 20151010 ----ARNOLDO TRACE 20151010 ----Exp date 20151010 ----BLO TRACE 20151010 ----KET Negative 20151010 ----SG 1.020 20151010 ROUTINE VENIPUNCTURE TEST, URINE (IN HOUSE) ----Exp date 20151010 ----Lot # [id number] 20151010 ----Control + 20151010 ----RESULTS Negative 20151010 Summary Purpose eClinicalWorks Submission
--- OUTSIDE RECORDS SUMMARY | 2017-02-10 10:22 | XMS REPORT ---
Author Author CRISTA ROSALES Organization eClinicalWorks Address Unknown Phone Unavailable Care Team Providers Care Representative Name Role Phone CRISTA ROSALES CP Unavailable [...] Active Problem Panic attacks F41.0 Active Medications No Known Medications Results No Known Results Summary Purpose eClinicalWorks Submission
--- OUTSIDE RECORDS SUMMARY | 2017-02-10 10:22 | XMS REPORT ---
Author Author CRISTA ROSALES [facility] eClinicalWorks Address Unknown Phone Unavailable Care Team Providers Care Supervisor Compounding And Finishing Name Role Phone CRISTA ROSALES CP Unavailable [...]
--- OUTSIDE RECORDS SUMMARY | 2017-02-10 10:22 | XMS REPORT ---
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
--- OUTSIDE RECORDS SUMMARY | 2017-02-10 10:22 | XMS REPORT ---
Author Author CRISTA ROSALES [facility] Address [address] [place] [address] Care Team Providers Care Planned Giving Officer Name Role Phone CRISTA ROSALES Unavailable PROBLEMS Type Condition ICD9-CM Code [id number] Code Onset Dates Condition Status SNOMED Code Problem Headache R51 Active 064364649 Problem Heart burn R12 Active 11488495 Problem Migraine headache G43.909 Active 16524253 Assessment Abnormal cholesterol test E78.9 Feb, Active 549032922 Problem Mixed hyperlipidemia E78.2 Active 882946381 Problem History of anemia Z86.2 Active 932814659 Problem Panic attacks F41.0 Active 65673422 Problem History of long-term use of multiple prescription drugs Z92.29 Active 443069441 Problem Abnormal thyroid blood test R94.6 Active 078346700 Problem Major depressive disorder, single episode, unspecified F32.9 Active 32577327 ALLERGIES Unknown Allergies SOCIAL HISTORY No smoking Hx information available PLAN OF CARE VITAL SIGNS MEDICATIONS Unknown Medications RESULTS Name Result Date Reference Range LIPID PANEL 2016-03-06 Cholesterol, Total 224 100-199 Triglycerides 182 0-149 HDL Cholesterol 38 >39 VLDL Cholesterol Oscar 36 5-40 LDL Cholesterol Calc 150 0-99 Comment: PROCEDURES Procedure Date Ordered Related Diagnosis Body Site LIPID PANEL Mar 06, 2016 VENIPRAYMUNDO, ROUTINE* Mar 06, 2016 IMMUNIZATIONS No Known Immunizations
--- OUTSIDE RECORDS SUMMARY | 2017-02-10 10:22 | XMS REPORT ---
Author Author SAMINA REN Organization eClinicalWorks Address Unknown Phone Unavailable Care Team Providers Care Hog Buyer Name Role Phone SAMINA REN CP Unavailable Allergies, Adverse Reactions, Alerts Substance Reaction Event Type N.K.D.A. Info Not Available Non Drug Allergy Problems Problem Type Condition Code Onset Dates Condition Status Assessment Insect bite of shoulder S40.269A Active Problem Sore throat J02.9 Active Medications Medication Code System Code Instructions Start Date End Date Status Dosage Pepcid [facility]NOTE 2] [address]-89 20 MG Orally Once a day 1 tablet at bedtime Triamcinolone Acetonide [facility]NOTE 2] [address]-00 0.1 % Externally Twice a day December 05, 2014 1 application to affected area Triamcinolone Acetonide [facility]NOTE 2] [address]-31 0.5 % Externally Twice a day May 24, 2015 1 application to affected area Amoxicillin [facility]NOTE 2] [address]-36 500 mg Orally Twice a day 1 tablet Procedures Procedure Coding System Code Date Office Visit, Est Pt., Level 3 CPT-4 13683 May 24, 2015 Vital Signs Date/Time: May 24, 2015 Temperature 97.7 F Weight 239 lbs Height 65 in BMI 39.77 Index Blood Pressure Diastolic 82 mmHg Blood Pressure Systolic 122 mmHg Cardiac Monitoring Heart Rate 90 bpm Results No Known Results Summary Purpose eClinicalWorks Submission
--- OUTSIDE RECORDS SUMMARY | 2017-02-10 10:23 | XMS REPORT ---
Author Author CRISTA ROSALES [facility] eClinicalWorks Address Unknown Phone Unavailable Care Team Providers Care Senior Medical Billing Specialist Name Role Phone CRISTA ROSALES Unavailable Allergies, Adverse Reactions, Alerts Substance Reaction Event Type N.K.D.A. 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 findings Z01.419 Active Problem Pelvic pain R10.2 Active Problem Evaluation regarding contraception options Z30.09 Active Problem Overweight E66.3 Active Problem Pain of right thumb M79.644 Active Problem Migraine headache G43.909 Active Problem Vaginal discharge N89.8 Active Assessment Migraine headache G43.909 Active Assessment Pelvic pain R10.2 Active Assessment 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 [address]-30 25 MG Orally once daily x 7 days then bid Jun 1 tablet Colace [facility] [address]-95 100 MG Orally 2 times a day 1 capsule as needed Pepcid [facility] [address]-43 20 MG Orally Once a day 1 tablet at bedtime Triamcinolone Acetonide [facility] [address]-83 0.5 % Externally Twice a day May 24, 2015 1 application to affected area Anti-Diarrheal [facility] [address]-10 not defined Vitamins ND 0 (Dis) Orally Once a day 1 tablet Procedures Procedure Coding System Code Date Office Visit, Est Pt., Level 4 CPT-4 14467 Jun 27, 2015 DEPO PROVERA (150 MG/ML) CPT-4 J1050 Jun 27, 2015 URINE TEST CPT-4 67547 Jun 27, 2015 No Charge CPT-4 71371 Jun 27, 2015 THER/PROPH/DIAG INJ, SC/IM CPT-4 96046 Jun 27, 2015 TRICHOMONAS ASSAY W/OPTIC CPT-4 99349 Jun 27, 2015 CULTURE, BACTERIA, OTHER CPT-4 03005 Jun 27, 2015 Vital Signs Date/Time: Jun 27, 2015 Temperature 97.9 F Weight 235.4 lbs Height 65 in BMI 39.17 Index Blood Pressure Diastolic 84 mmHg Blood Pressure Systolic 122 mmHg Cardiac Monitoring Heart Rate 80 bpm Results Name Result Date Reference Range Unit Abnormality Flag TEST, URINE (IN HOUSE) ----RESULTS negative 20150627 ----Lot # [id number] ----Control + 20150627 ----Exp date 20150627 TRICHOMONAS (IN HOUSE) ----Exp date 20150627 ----Control + 20150627 ----Lot # [id number] ----TRICHOMONAS negative 20150627 Summary Purpose eClinicalWorks Submission
--- OUTSIDE RECORDS SUMMARY | 2017-02-10 10:23 | XMS REPORT ---
Author Author CRISTA ROSALES Organization eClinicalWorks Address Unknown Phone Unavailable Care Team Providers Care Locker Room Clerk Name Role Phone CRISTA ROSALES CP Unavailable [...] of multiple prescription drugs Z92.29 Active Assessment Pelvic pain in female 625.9 Active Problem Neutropenia D70.9 Active Problem Leukopenia D72.819 Active Medications No Known Medications Results No Known Results Summary Purpose eClinicalWorks Submission
--- OUTSIDE RECORDS SUMMARY | 2017-02-10 10:23 | XMS REPORT ---
Author Author CRISTA ROSALES [facility] Address [address] [place] [address] Care Team Providers Care Human Resources Project Manager Name Role Phone CRISTA ROSALES Unavailable PROBLEMS Type Condition ICD9-CM Code [id number]-DK Code Onset Dates Condition Status SNOMED Code Problem History of long-term use of multiple prescription drugs Z92.29 Active 386627097 Problem Major depressive disorder, single episode, unspecified F32.9 Active 31176348 Problem Panic attacks F41.0 Active 417929753 Problem Migraine headache G43.909 Active 12401722 Problem Heart burn R12 Active 07863670 Problem Anxiety and depression F41.8 Active 944146310 Problem 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 Active 02265742 Problem History of anemia Z86.2 Active 686184315 Problem Abnormal thyroid blood test R94.6 Active 732258196 Problem Late menses N91.0 Active 513052214 Problem Mixed hyperlipidemia E78.2 Active 257375710 ALLERGIES Unknown Allergies SOCIAL HISTORY No smoking Hx information available PLAN OF CARE VITAL SIGNS MEDICATIONS Unknown Medications RESULTS No Results PROCEDURES No Known procedures IMMUNIZATIONS No Known Immunizations
--- OUTSIDE RECORDS SUMMARY | 2017-02-10 10:23 | XMS REPORT ---
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 Problem Abnormal thyroid blood test R94.6 Active Problem Mixed hyperlipidemia E78.2 Active Problem Pain in left knee M25.562 Active Problem Pain in right knee M25.561 Active Problem Acute maxillary sinusitis, recurrence not specified J01.00 Active Problem History of palpitations Z87.898 Active Problem Leukopenia D72.819 Active Problem Headache R51 Active Assessment 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 Active Problem Neutropenia D70.9 Active Problem Pelvic pain R10.2 Active Problem Heart burn R12 Active Problem Overweight E66.3 Active Problem History of long-term use of multiple prescription drugs Z92.29 Active Problem Migraine headache G43.909 Active Problem Unprotected sex Z72.51 Active Medications No Known Medications Procedures Procedure Coding System Code Date Office Visit, Est Pt., Level 3 CPT-4 88565 December 20, 2015 Vital Signs Date/Time: December 20, 2015 Blood Pressure Diastolic 64 mmHg Blood Pressure Systolic 118 mmHg Height 65 in Results No Known Results Summary Purpose eClinicalWorks Submission
--- OUTSIDE RECORDS SUMMARY | 2017-02-10 10:23 | XMS REPORT ---
Author Author IVON ROSE eClinicalWorks Address Unknown Phone Unavailable Care Team Providers Care Drilling Machine Operator Name Role Phone IVON ROSE CP Unavailable Allergies, Adverse Reactions, Alerts Substance Reaction Event Type N.K.D.A. Info Not Available Non Drug Allergy Problems Problem Type Condition Code Onset Dates Condition Status Assessment Vaginal discharge N89.8 Active Problem Migraine headache G43.909 Active Problem Headache R51 Active Assessment Vaginal yeast infection B37.3 Active Problem History of anemia Z86.2 Active Problem Abnormal thyroid blood test R94.6 Active Problem Mixed hyperlipidemia E78.2 Active Problem History of long-term use of multiple prescription drugs Z92.29 Active Problem Heart burn R12 Active Problem Major depressive disorder, single episode, unspecified F32.9 Active Problem Panic attacks F41.0 Active Medications Medication Code System Code Instructions Start Date End Date Status Dosage Lipitor [facility] [address]-50 10 MG Orally Once a day 1 tablet Pepcid [facility] [address]-18 20 mg Orally Once a day 1 tablet at bedtime Topamax [facility] 25729170592 50 MG Orally bid 1 tablet Fish Oil [facility] [address]-04 1000 MG Orally Once a day at hs Mar 17, 2016 2 tablets Vitamins [facility] [address]-09 (Dis) Orally Once a day 1 tablet Ortho Tri-Cyclen (28) [facility] [address]-36 0.18/0.215/0.25 MG-35 MCG Orally Once a day August 29, 2015 1 tablet Diflucan [facility] [address]-31 150 MG Orally one time dose, may repeat in 72 hours if still having symptoms Apr 22, 2016 Apr 23, 2016 1 tablet Colace [facility] [address]-53 100 MG Orally 2 times a day 1 capsule as needed Procedures Procedure Coding System Code Date TRICHOMONAS ASSAY W/OPTIC CPT-4 20094 Apr 22, 2016 CULTURE, BACTERIA, OTHER CPT-4 73871 Apr 22, 2016 KELLY VAG, DNA, DIR PROBE CPT-4 49416 Apr 22, 2016 URINE TEST CPT-4 86403 Apr 22, 2016 No Charge CPT-4 72144 Apr 22, 2016 Office Visit, Est Pt., Level 3 CPT-4 42186 Apr 22, 2016 Vital Signs Date/Time: Apr 22, 2016 Cardiac Monitoring Heart Rate 80 bpm Weight 191.2 lbs Height 65 in BMI 31.81 Index Blood Pressure Diastolic 78 mmHg Blood Pressure Systolic 112 mmHg Results Name Result Date Reference Range Unit Abnormality Flag BACTERIAL VAGINOSIS (IN HOUSE) ----Lot # [id number] ----Exp date 20160422 ----RESULTS negative [id number] ----Control + [id number] TEST, URINE (IN HOUSE) ----RESULTS Negative [id number] ----Lot # [id number] ----Control + [id number] ----Exp date 20160422 TRICHOMONAS (IN HOUSE) ----Exp date 20160422 ----Control + [id number] ----Lot # [id number] ----TRICHOMONAS NEGATIVE [id number] Summary Purpose eClinicalWorks Submission
[2017-02-10] MEDS ORDERED: LACTATED RINGERS 1,000 ML IV ONE (10:28)
[2017-02-10] MEDS ORDERED: NALOXONE 0.4 MG/ML 1 ML (NARCAN) VIAL IV PRN (10:30)
[2017-02-10] MEDS ORDERED: diphenhydrAMINE 50 MG/ML INJ (BENADRYL) IV PRN (10:30)
[2017-02-10] MEDS ORDERED: CATHETER FLUSH 10 ML SYR IV PRN (10:30)
[2017-02-10] MEDS ORDERED: EPIDURAL (SUFENTA 0.6MCG/ML BUPIVA 0.125%) 100 ML BAG EPI SCH (10:30)
[2017-02-10] MEDS ORDERED: ONDANSETRON 4 MG/2 ML (SDV) Z0FRAN IV PRN (10:30)
[2017-02-10] MEDS ORDERED: CATHETER FLUSH 10 ML SYR IV SCH ×2 (14:00→22:00)
[2017-02-10] MEDS ORDERED: IBUPROFEN 600 MG (MOTRIN) TAB PO ONE (16:37)
--- NOTE | 2017-02-10 16:53 | OB Labor & Delivery Record ---
L&D History Date of Service Date of Service: Feb 10, 2017 History Expected Date of Delivery: Feb 17, 2017 Gestational Age in Weeks: 39 Hx : 3 Hx Para: 2 Complications Events: Routine care Operative Indications (Cesarea: N/A-Vaginal Delivery Intrapartal Events: None L&D Stage1 Stage One Onset of Labor - Date: Feb 10, 2017 Onset of Labor - Time: 07:00 Monitors and Tracing Monitor Mode: Internal Heart Rate: 130 Monitor Accelerations: Uniform Monitor Decelerations: None Station: -4 [facility] Variability: Average (6-10) Short Term Variability: Present Presentation: Vertex Vital Signs VS - Last 72 Hours, by Label 02/10/17 02/10/17 02/10/17 02/10/17 07:15 08:10 08:20 08:35 Pulse 109 99 96 98 Resp 20 20 20 20 B/P (MAP) 174/77 134/88 138/85 163/100 O2 Delivery Room Air Room Air Room Air Room Air 02/10/17 02/10/17 02/10/17 02/10/17 08:50 08:55 09:00 09:05 Pulse 95 97 107 90 Resp 20 20 18 18 B/P (MAP) 144/86 141/90 147/96 120/60 Pulse Ox 99 98 98 O2 Delivery Room Air Room Air Room Air Room Air 02/10/17 02/10/17 02/10/17 02/10/17 09:10 09:15 09:30 09:45 Pulse 101 89 96 104 Resp 18 18 20 20 B/P (MAP) 126/64 123/76 131/75 126/75 Pulse Ox 98 98 98 98 O2 Delivery Room Air Room Air Room Air Room Air 02/10/17 02/10/17 02/10/17 02/10/17 10:00 10:15 10:30 10:45 Pulse 93 90 92 91 Resp 20 20 20 20 B/P (MAP) 115/70 122/68 111/63 112/62 Pulse Ox 98 99 98 99 O2 Delivery Room Air Room Air Room Air Room Air 02/10/17 02/10/17 02/10/17 02/10/17 11:00 11:15 11:30 11:45 Pulse 95 93 92 92 Resp 20 20 20 20 B/P (MAP) 122/66 96/52 118/70 118/70 Pulse Ox 100 98 99 99 O2 Delivery Room Air Room Air Room Air Room Air 02/10/17 02/10/17 02/10/17 02/10/17 12:00 12:15 12:30 12:45 Pulse 95 100 95 95 Resp 20 18 18 20 B/P (MAP) 117/68 121/68 121/71 122/65 Pulse Ox 98 99 98 98 O2 Delivery Room Air Room Air Room Air Room Air 02/10/17 02/10/17 02/10/17 02/10/17 13:00 13:15 13:30 13:50 Temp 98.4 Pulse 99 95 95 96 Resp 20 20 18 18 B/P (MAP) 131/89 126/68 126/81 117/65 Pulse Ox 98 98 98 98 O2 Delivery Room Air Room Air Room Air Room Air 02/10/17 02/10/17 02/10/17 02/10/17 14:05 14:20 14:35 14:50 Pulse 91 95 92 96 Resp 18 18 20 20 B/P (MAP) 118/66 124/65 116/59 110/65 Pulse Ox 99 97 97 98 O2 Delivery Room Air Room Air Room Air Room Air 02/10/17 02/10/17 02/10/17 02/10/17 15:05 15:20 15:35 15:50 Pulse 96 93 94 96 Resp 20 18 18 18 B/P (MAP) 125/70 122/77 122/74 126/79 Pulse Ox 95 98 98 95 O2 Delivery Room Air Room Air Room Air Room Air Signs of Distress by FHT Signs of Distress no Rupture of Membranes Spontaneous Ruture of Membrane: No Amniotic Membrane Rupture Time: 0732 Amniotic Membrane Fluid Desc.: Clear Induction/Anesthesia Epidural Cath Placement - Time: 0853 L&D Stage2 Stage Two Stage II Date: Feb 10, 2017 Stage II Time: 16:17 Monitors and Tracing Monitor Mode: Internal Heart Rate: 130 Monitor Accelerations: Uniform Monitor Decelerations: None Seo Manager Variability: Average (6-10) Short Term Variability: Present Position: Left Occiput Anterior Presentation: Vertex Signs of Distress by FHT Signs of Distress no Cord Descript/Complications Cord Vessel Description: 3 Vessels Delivery Type Delivery Method: Spontaneous Vaginal Anterior Shoulder: Left Episiotomy/Perineal Laceration Laceraction(s)/Extensions: Yes Episiotomy Description: Periurethral Extnsion/lac (R) Condition of Delivery 1 minute Comment: 8 5 minute Comment: 9 Condition of Condition of : Living Exam: No Observed Abnormalities Resuscitation Resuscitation: N/A - Spontaneous Resp L&D Stage3 Stage Three Stage III Date: Feb 10, 2017 Stage III Time: 16:22 Pictocin Pitocin Administration mu/min: 6 Pitocin ml/hr: 6 Placenta Delivery Placenta Delivery: Spontaneous Delivery Summary Summary Vaginal blood loss >500ml: No 250 Condition of Delivery Examined: Cervix Examined Post Hemorrhage: No KIARA MAO MD Feb 10, 2017 16:53
[2017-02-10] MEDS ORDERED: MEASLES,MUMPS,RUBELLA 1 EA INJ SQ ONE (17:00)
[2017-02-10] MEDS ORDERED: BENZOCAINE/MENTHOL (DERMOPLAST) 56 ML CAN TP PRN (17:00)
[2017-02-10] MEDS ORDERED: TETANUS,DIPTH,PERTUSS P/F (BOOSTRIX) 0.5 ML VIAL IM ONE (17:00)
[2017-02-10] MEDS ORDERED: WITCH HAZEL(TUCKS) 40 EA JAR TOP PRN (17:00)
[2017-02-10] MEDS: IBUPROFEN 600 MG (MOTRIN) TAB PO SCH (23:54)
[2017-02-11] VITALS (7 sets, daily range): BP systolic 115–170; BP diastolic 65–101
[2017-02-11 06:19] LABS: BASOPHILS % (AUTO) 0 % (0-10); EOSINOPHILS # (AUTO) 0.1 10^3/uL (0.0-0.3); EOSINOPHILS % (AUTO) 1 % (0-10); LYMPHOCYTES # (AUTO) 1.5 X 10^3 (1.0-4.0); LYMPHOCYTES % (AUTO) 17 % (12-44); MEAN CORPUSCULAR HEMOGLOBIN 30 PG (25-34); MEAN CORPUSCULAR HGB CONC 33 G/DL (32-36); MEAN CORPUSCULAR VOLUME 89 FL (80-99); MEAN PLATELET VOLUME 11.3 FL (7.4-10.4); MONOCYTES # (AUTO) 0.7 X 10^3 (0.0-1.0); MONOCYTES % (AUTO) 7 % (0-12); NEUTROPHILS # (AUTO) 7.1 X 10^3 (1.8-7.8); NEUTROPHILS % (AUTO) 76 % (42-75); PLATELET COUNT 140 10^3/uL (130-400); RED CELL DISTRIBUTION WIDTH 14.8 % (10.0-14.5); WHITE BLOOD COUNT 9.3 10^3/uL (4.3-11.0)
[2017-02-11] MEDS: IBUPROFEN 600 MG (MOTRIN) TAB PO SCH ×3 (06:53→21:33)
--- NOTE | 2017-02-11 07:51 | Progress Note (SOAP) ---
Subjective Subjective/Events-last exam No current complaints. Up walking around. Review of Systems Date Seen by Provider: Feb 11, 2017 Time Seen by Provider: 07:40 Objective Exam Last Set of Vital Signs Vital Signs Date Time Temp Pulse Resp B/P (MAP) Pulse Ox O2 Delivery O2 Flow Rate FiO2 02/11/17 04:00 98.4 83 20 144/87 98 Room Air Capillary Refill : General: No Acute Distress Lungs: Clear to Auscultation Abdomen: Soft (with uterus firm) Results/Procedures Lab Laboratory Tests 02/11/17 06:05: White Blood Count 9.3, Red Blood Count 3.80L, Hemoglobin 11.3L, Hematocrit 34L, Mean Corpuscular Volume 89, Mean Corpuscular Hemoglobin 30, Mean Corpuscular Hemoglobin Concent 33, Red Cell Distribution Width 14.8H, Platelet Count 140, Mean Platelet Volume 11.3H, Neutrophils (%) (Auto) 76H, Lymphocytes (%) (Auto) 17, Monocytes (%) (Auto) 7, Eosinophils (%) (Auto) 1, Basophils (%) (Auto) 0, Neutrophils # (Auto) 7.1, Lymphocytes # (Auto) 1.5, Monocytes # (Auto) 0.7, Eosinophils # (Auto) 0.1, Basophils # (Auto) 0.0 Assessment/Plan Assessment/Plan Plan 1. Term IUP at 39weeks S/P day 1 -routine PP care orders. Diagnosis/Problems: Clinical Quality Measures DVT/VTE Risk/Contraindication: Risk Factor Score Per Nursin RFS Level Per Nursing on Admit: 2=Moderate KIARA MAO MD Feb 11, 2017 07:51
[2017-02-11] MEDS: PRENATAL VITAMIN 1 EA TAB PO SCH (08:45)
[2017-02-11] MEDS ORDERED: TETANUS,DIPTH,PERTUSS P/F (BOOSTRIX) 0.5 ML VIAL IM ONE (08:52)
[2017-02-11] MEDS: HYDROcodone/APAP 5 MG/325 MG (LORTAB) TAB PO PRN ×3 (08:59→17:59)
--- NOTE | 2017-02-11 11:35 | Anesthesia-Regional Post-Op ---
Regional Patient Condition Mental Status: Alert, Oriented x3 Circulation: Same as Pre-Op Headache: Absent Sensation: Full Recovery Motor Block: Absent Post Op Complications Complications None Follow Up Care/Instructions Patient Instructions None needed. Anesthesia/Patient Condition Patient is doing well, no complaints, stable vital signs, no apparent adverse anesthesia problems. No complications reported per nursing. ALEJANDRA SORTO CRNA Feb 11, 2017 11:35
[2017-02-12 02:00] VITALS: BP 140/81
[2017-02-12] MEDS: IBUPROFEN 600 MG (MOTRIN) TAB PO SCH ×2 (03:24→08:29)
[2017-02-12] MEDS: HYDROcodone/APAP 5 MG/325 MG (LORTAB) TAB PO PRN (05:09)
--- NOTE | 2017-02-12 07:51 | Discharge Summary ---
Diagnosis/Chief Complaint Date of Admission Feb 10, 2017 at 06:57 Date of Discharge February 12, 2017 Discharge Date: Feb 12, 2017 Discharge Time: 07:40 Admission Diagnosis Admission Diagnosis 1. Intrauterine at term 39 weeks gestation Discharge Diagnosis 1. Intrauterine at term 39 weeks gestation Reason Hospital Visit 26-year-old 3 now term 3 female who initially presented to women's services in the morning of February 10, 2017 for induction of labor. Patient was noted to be at 39 weeks gestation and dilated to 3 cm. She was admitted for AROM. Her EDC is February 17, 2017 Discharge Summary-OBS Procedures 1. Epidural per anesthesia 2. Spontaneous vaginal delivery Discharge Physical Examination Allergies: Coded Allergies: erythromycin base (Unverified Allergy, Unknown, reports that her mother said to say that she was allergic to, 01/14/16) Vitals & I&Os Vital Signs Date Time Temp Pulse Resp B/P (MAP) Pulse Ox O2 Delivery O2 Flow Rate FiO2 02/12/17 02:00 98.2 84 19 140/81 96 Room Air General Appearance: No Acute Distress Respiratory: Clear to Auscultation Abdominal: Soft (with uterus firm) Hospital Course following admission patient underwent routine labor orders. She did receive epidural during the course of her labor. She also required Pitocin augmentation to a maximum of 14 mU/m. Ultimately patient went on to completion and delivered a term viable female with Apgars of 8 at 1 minute and 9 at 5 minutes. She did not have an episiotomy and there was only a slight right periurethral tear. Following delivery patient underwent routine care orders. She had no complaints of chest pain or shortness of breath. She had an occasional mildly elevated blood pressure but overall reassuring. She was instructed that this will be rechecked in one week in the office. Her hemoglobin 24 hours after giving was noted to be 11.3. Patient was felt ready for dismissal in the morning of February 12, 2017. Discharge Instructions to patient/family Please see electonic discharge instructions given to patient. Discharge Medications Reviewed and agree with Discharge Medication list on patient's Discharge Instruction sheet Clinical Quality Measures DVT/VTE Risk/Contraindication: Risk Factor Score Per Nursin RFS Level Per Nursing on Admit: 2=Moderate KIARA MAO MD Feb 12, 2017 07:51
[2017-02-12] MEDS ORDERED: IBUP-1773 PO (07:52)
[2017-02-12] MEDS ORDERED: HYDR-3812 PO (07:52)
--- NOTE | 2017-02-12 07:53 | Discharge Inst-Women's Service ---
Discharge Inst-Women's Serv Depart Medication/Instructions New, Converted or Re-Newed RX: RX on Chart Consults/Follow Up Additional Follow Up: Yes (with Dr Mao in 6 weeks) Activity Activity: Activity as Tolerated Driving Instructions: You May Drive Nothing Inside Vagina: No [place] (for 6 weeks) Diet Discharge Diet: Regular Diet Return to The Hospital For: as below Symptoms to Report to : Bleeding Excessive, Pain Increased, Fever Over 101 Degrees F, Pain/Pressure in Chest, Lightheadedness, Vaginal Discharge Foul For Any Problems or Questions: Contact Your Physician KIARA MAO MD Feb 12, 2017 07:53
[2017-02-12 08:00] VITALS: BP 136/71
[2017-02-12] MEDS: PRENATAL VITAMIN 1 EA TAB PO SCH (08:29)
== END 2017-02-12 11:30 | disposition home or self-care (01) | DRG 775 ==
LOC: LDRP 06:57
PROVIDERS: ADMIT Family Medicine; ATTEND Family Medicine
PROC: 10E0XZZ Delivery of Products of Conception, External Approach (ICD-10-PCS; principal; 2017-02-10)
PROC: 10907ZC Drainage of Amniotic Fluid, Therapeutic from Products of Conception, Via Natural or Artificial Opening (ICD-10-PCS; 2017-02-10)
DX: O80 Encounter for full-term uncomplicated delivery (principal); Z3A.39 39 weeks gestation of pregnancy; Z23 Encounter for immunization; Z37.0 Single live birth
CPT/HCPCS: 36415; 85025; 86850; 86900; 86901; 90715

== ENCOUNTER → 2017-10-05 | Outpatient (CLI) | payer MEDICAID ==
[~2017-10-05] MED LIST changes: +ACHD5005 PO; -HYDR-3812 PO; +IBUP-1773 PO
--- NOTE | 2017-10-05 15:49 | Diagnostic Imaging Report ---
INDICATION: Irregular menses and pelvic pain. TECHNIQUE: Multiple realtime grayscale images were obtained of the pelvis in various projections endovaginally. Transabdominal imaging was also performed. FINDINGS: The uterus measures 7.1 x 4.5 x 3.2 cm. Endometrium is 1 mm in thickness. No myometrial mass is detected. The right ovary measures 3.5 x 3.6 x 2.3 cm and the left ovary measures 4.2 x 3.3 x 2.4 cm. There are multiple follicles on bilateral ovaries. Left ovary does contain a cyst measuring 2.9 cm in diameter. No free fluid is seen. There is blood flow to the ovaries. IMPRESSION: 2.9 cm left ovarian cyst. No other significant abnormality is detected. Dictated by: Dictated on workstation # [id number]
== END ==
LOC: RAD 13:02
PROVIDERS: ATTEND Nurse Practitioner Family
DX: N83.202 Unspecified ovarian cyst, left side (principal)
CPT/HCPCS: 76830; 76856

== ENCOUNTER 2018-01-30 17:18 | Emergency (ER) | payer MEDICAID ==
[~2018-01-30] VITALS: Ht 165.1 cm; Wt 113.4 kg
--- OUTSIDE RECORDS SUMMARY | 2018-01-30 17:25 | XMS REPORT ---
Author Author CRISTA ROSALES [facility] Address [address] [place] [address] Care Team Providers Care Loader Magazine Grinder Name Role Phone CRISTA ROSALES Unavailable PROBLEMS Type Condition ICD9-CM Code ICA71-QI Code Onset Dates Condition Status SNOMED Code Problem Major depressive disorder, single episode, unspecified F32.9 Active 59251359 Problem History of anemia Z86.2 Active 588854577 Problem Panic attacks F41.0 Active 813712429 Problem Migraine headache G43.909 Active 77780942 Problem History of long-term use of multiple prescription drugs Z92.29 Active 129365636 Problem Chronic GERD K21.9 Active 188535580 Problem Anxiety and depression F41.8 Active 365534595 Problem Abnormal thyroid blood test R94.6 Active 139693677 Problem Mixed hyperlipidemia E78.2 Active 514690833 Problem 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 Active 58795297 Problem Late menses N91.0 Active 092941644 ALLERGIES No Known Allergies ENCOUNTERS Encounter Location Date Diagnosis [facility] [id number] [place] [address]39 -3892 October, Seasonal allergic rhinitis, unspecified trigger J30.2 and BMI 40.0-44.9, adult Z68.41 [facility] [address] [id number] [place] [address] 19774- 5700 Sep, Pelvic pain R10.2 ; Chronic GERD K21.9 and BMI 40.0-44.9, adult Z68.41 [facility] [address] [place] [address] 15627- 1874 Jul, [facility] [id number] [place] [address] 09451 -7089 Apr, Sore throat J02.9 ; Acute recurrent streptococcal tonsillitis J03.01 and BMI 40.0-44.9, adult Z68.41 [facility] [id number] [place] [address]01 -6056 Mar, Sore throat J02.9 and Acute non-recurrent streptococcal tonsillitis J03.00 [place] [id number] [place] [address] 83075- 6285 Feb, [place] [id number] [place] [address] [id number] Jan, Anxiety and depression F41.8 [place] [id number] [place] [address] [id number] Dec, [place] [id number] [place] [address] 42634- 7768 Nov, [place] [address] 31854- 4716 Jun, Normal in multigravida Z34.80 and First trimester Z33.1 [place] [id number] [place] [address] 60215- 8033 Jun, 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 and Ota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 ear H92.01 [place] [id number] [place] [address] 85491- 2081 May, [facility] [place] [id number] [place] [address] 85389 -8614 May, Late menses N91.0 and Acute suppurative otitis media of left ear without spontaneous rupture of tympanic membrane, recurrence not specified H66.002 [place] [address] 41639- 4029 May, [place] [id number] [place] [address] 13458- 9178 Apr, [facility] [address] 58151 -3700 Apr, Vaginal discharge N89.8 and Vaginal yeast infection B37.3 [place] [address] [place] [address] 07439- 7954 Mar, [facility] [id number] [place] [address] 74479- 1173 Feb, [place] [id number] [place] [address] 19007- 5127 Feb, [facility] [id number] [place] [address] 16611- 5671 Feb, Abnormal cholesterol test E78.9 [place] [id number] [place] [address] 33200- 8955 Feb, History of UTI Z87.440 ; Mixed hyperlipidemia E78.2 and Abnormal thyroid blood test R94.6 [facility] [address] [place] [address] Jan, [place] [id number] [place] [address] 60890- 5555 Jan, [place] [id number] [place] [address] 39325- 7750 Jan, Chest pain, unspecified type R07.9 ; Palpitations R00.2 ; Hyperlipidemia, unspecified hyperlipidemia type E78.5 and Dyspnea, unspecified type R06.00 [place] [address] [place] [address] 56568- 2463 Jan, [facility] [id number] [place] [address] 10497- 0269 Dec, [facility] [address] [place] [address] 67085 -6185 Dec, Upper respiratory tract infection, unspecified type J06.9 [place] [address] [place] [address] 87880- 5025 Dec, Major depressive disorder, single episode, unspecified F32.9 and Panic attacks F41.0 [place] [id number] [place] [address] 52559- 2321 Nov, History of anemia Z86.2 ; Abnormal thyroid blood test R94.6 ; Mixed hyperlipidemia E78.2 ; Migraine headache G43.909 and Acute maxillary sinusitis, recurrence not specified J01.00 [place] [id number] [place] [address] 16629- 1933 Nov, 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 and Chondromalacia patellae of right knee M22.41 [place] [id number] [place] [address] 74494- 7876 Nov, Abnormal thyroid blood test R94.6 and Abnormal cholesterol test E78.9 [place] [id number] [place] [address] 62286- 5132 October, History of palpitations Z87.898 ; Pain in left knee M25.562 and Pain in right knee M25.561 [place] [id number] [place] [address] 85285- 7329 Sep, Pelvic pain in female 625.[address] 45600- 8996 Sep, Pelvic pain R10.2 ; Galactorrhea in female N64.3 ; Knee pain , left M25.562 and Knee pain, right M25.561 [facility] [id number] [place] [address] 93627 -9956 Aug, Cough R05 and Laceration of thumb, left S61.012A [place] [id number] [place] [address] 38705- 7702 Aug, Cough R05 ; History of UTI Z87.440 and Contraception management Z30.9 [place] [id number] [place] [address] 21389- 9963 Aug, History of UTI Z87.440 and Irregular menses N92.6 [place] [address] 16146- 0932 18 Jul, 2015 Leukopenia D72.819 and Neutropenia D70.9 [place] [address] 00685- 8092 18 Jul, 2015 Leukopenia D72.819 and Neutropenia D70.[address] 86812- 4642 17 Jul, 2015 Migraine headache G43.909 ; Heart burn R12 and History of long-term use of multiple prescription drugs Z92.29 [facility] [address] 99839 -8990 15 Jul, 2015 Vaginal discharge N89.8 ; High risk sexual behavior Z72.51 ; Unprotected sex Z72.51 ; Acute upper respiratory infection, unspecified J06.9 and Other viral agents as the cause of diseases classified elsewhere B97.[address] 73405- 9279 04 Jul, 2015 Sore throat J02.9 ; Sinusitis J32.9 and Fever R50.[address] 85587- 8842 Jun, Migraine headache G43.909 and Heart burn R12 [address] 18418- 7774 14 Jun, 2015 [place] [address] 78113- 0494 Jun, [place] [address] 38816- 6823 06 Jun, 2015 Evaluation regarding contraception options Z30.09 ; Encounter for Depo-Provera contraception Z30.42 ; 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) w/o abn findings Z01.419 ; Pelvic pain R10.2 ; Migraine headache G43.909 and Vaginal discharge N89.8 [place] [address] 50885- 5481 May, Overweight E66.3 ; Encounter for immunization Z23 ; Pain of right thumb M79.644 and Headache R51 [facility] [address] 86812 -3860 May, Insect bite of shoulder S40.269A [facility] [address] 25083 -9444 May, Sore throat J02.9 [facility] [address] 44011- 5573 Feb, Pelvic pain in female 625.9 and Menorrhagia 626.2 [facility] [address] 38934- 8313 Dec, Diarrhea 787.91 [place] [address] 60834- 4261 Dec, Pelvic pain in female 625.9 and Ganglion cyst of wrist 727.41 [facility] [address] 88267- 9337 Nov, Eczema 692.9 [facility] [address] 87773- 5976 Nov, [facility] [id number] [place] [address] 90704- 2147 Sep, [facility] [address] 08742- 0779 Sep, [facility] [id number] [place] [address] 05715- 8673 Jul, [facility] [address] 09090- 0353 Jul, [facility] [id number] [place] [address] 22618- 1799 Jun, [facility] [address] 39152- 2625 Jun, [facility] [place] [facility] [address] [id number] [place] [address]- 4778 Jun, [facility] [place] [facility] [address] [id number] [place] [address]- 6112 Jun, [facility] [place] [facility] [address] [facility] [id number] [place] [address]- 3115 Jun, [facility] [place] [facility] [address] [id number] [place] [address]- 5227 Jun, [facility] [place] [facility] [address] [facility] [address] [id number] [place] [address]- 3036 Jun, [facility] [place] [facility] [address] [facility] [address] [id number] [place] [address]- 1770 Jun, [facility] [place] [facility] [address] [place] [address] [id number] [place] [address]- 4424 May, [facility] [place] [facility] [address] [facility] [address] [id number] [place] [address]- 2774 May, [facility] [place] [facility] [address] [place] [address] [id number] [place] [address]- 4466 May, [facility] [place] [facility] [address] [facility] [address] [id number] [place] [address]- 5783 May, [facility] [place] [facility] [address] [facility] [address] [id number] [place] [address]- 5419 Apr, [facility] [place] [facility] [address] [id number], [place] [address]- 1506 Apr, [facility] [place] [facility] [address] [id number] [place] [address]- 7193 Apr, [facility] [place] [facility] [address] [facility] [address] [id number] [place] [address]- 8688 Apr, [facility] [place] [facility] [address] [facility] [address] [id number] [place] [address]- 1914 Apr, [facility] [place] [facility] [address] [id number] [place] [address]- 6215 05 Apr, 2014 [facility] [place] [facility] [address] [id number] [place] [address] 2546 29 Sep, 2013 [facility] [place] [facility] [address] [id number] [place] [address] 2546 29 Sep, 2013 [facility] [place] [facility] [address] [id number] [place] [address] 2546 26 Feb, 2013 [facility] [place] [facility] [address] [id number] [place] [address] 2546 26 Feb, 2013 [facility] [place] [facility] [address] [id number] [place] [address] 2546 26 Feb, 2013 [facility] [place] [facility] [address] [id number] [place] [address]- 2614 26 Feb, 2013 [facility] [place] [facility] [address] [id number] [place] [address] 2543 25 Feb, 2013 [facility] [place] [facility] [address] [id number] [place] [address] 2547 25 Feb, 2013 [facility] [place] [facility] [address] [id number] [place] [address] 2542 23 Feb, 2013 [facility] [place] [facility] [address] [id number] [place] [address] 2549 23 Feb, 2013 [facility] [place] [facility] [address] [id number] [place] [address] 2541 22 Feb, 2013 [facility] [place] [facility] [address] [id number] [place] [address] 2548 22 Feb, 2013 [facility] [place] [facility] [address] [id number] [place] [address] 2546 19 Feb, 2013 [facility] [place] [facility] [address] [id number] [place] [address] 2546 19 Sep, 2013 [facility] [place] [facility] [address] [id number] [place] [address]- 7359 Feb, [facility] [place] [facility] [address] [id number] [place] [address]- 1162 Feb, [facility] [place] [facility] [address] [id number] [place] [address]- 6936 Feb, [facility] [place] [facility] [address] [id number] [place] [address]- 3754 Feb, [facility] [place] [facility] [address] [id number] [place] [address]- 7280 Feb, [facility] [place] [facility] [address] [id number] [place] [address]- 2285 Feb, [facility] [place] [facility] [address] [id number] [place] [address]- 0132 Jan, [facility] [place] [facility] [address] [id number] [place] [address]- 5955 Jan, [facility] [place] [facility] [address] [id number] [place] [address]- 9405 Jan, [facility] [place] [facility] [address] [id number] [place] [address]- 9069 Jan, [facility] [place] [facility] [address] [id number] [place] [address]- 4977 Jan, [facility] [place] [facility] [address] [id number] [place] [address]- 7741 Jan, [facility] [place] [facility] [address] [id number] [place] [address]- 3246 Jan, [facility] [place] [facility] [address] [id number] [place] [address]- 1088 Jan, [facility] [place] [facility] [address] [id number] [place] [address]- 4719 Dec, [facility] [place] [facility] [address] [id number] [place] [address]- 9677 Dec, [facility] [place] [facility] [address] [id number] [place] [address]- 1167 Dec, [facility] [place] [facility] [address] [id number] [place] [address]- 2424 Dec, [facility] [place] [facility] [address] [id number] [place] [address]- 3102 Dec, [facility] [place] [facility] [address] [id number] [place] [address]- 2264 Dec, [facility] [place] [facility] [address] [id number] [place] [address]- 5948 Dec, [facility] [place] [facility] [address] [id number] [place] [address]- 2711 Dec, [facility] [place] [facility] [address] [id number] [place] [address]- 8273 Dec, [facility] [place] [facility] [address] [id number] [place] [address]- 3330 Dec, [facility] [place] [facility] [address] [id number] [place] [address]- 4745 Dec, [facility] [place] [facility] [address] [id number] [place] [address]- 9457 Dec, [facility] [place] [facility] [address] [id number] [place] [address]- 7195 Nov, [facility] [place] [facility] [address] [id number] [place] [address]- 3031 Nov, [facility] [place] [facility] [address] [id number] [place] [address]- 9447 Nov, [facility] [place] [facility] [address] [id number] [place] [address]- 8957 Nov, [facility] [place] [facility] [address] [id number] [place] [address]- 0927 Nov, [facility] [place] [facility] [address] [id number] [place] [address]- 4178 Nov, [facility] [place] [facility] [address] [id number] [place] [address]- 1741 Nov, [facility] [place] [facility] [address] [id number] [place] [address]- 2101 Nov, [facility] [place] [facility] [address] [id number] [place] [address]- 6192 Nov, [facility] [place] [facility] [address] [id number] [place] [address]- 1817 Nov, [facility] [place] [facility] [address] [id number] [place] [address]- 7734 October, [facility] [place] [facility] [address] [id number] [place] [address]- 5569 October, [facility] [place] [facility] [address] [id number] [place] [address]- 9933 October, [facility] [place] [facility] [address] [id number] [place] [address]- 8966 October, [facility] [place] [facility] [address] [id number] [place] [address]- 2440 October, [facility] [place] [facility] [address] [id number] [place] [address]- 9214 October, [facility] [place] [facility] [address] [id number] [place] [address]- 1123 Sep, [facility] [place] [facility] [address] [id number] [place] [address]- 6008 Sep, [facility] [place] [facility] [address] [id number] [place] [address]- 8467 Sep, [facility] [place] [facility] [address] [id number] [place] [address]- 7693 Sep, [facility] [place] [facility] [address] [id number] [place] [address]- 4063 Sep, [facility] [place] [facility] [address] [id number], [place] [address]- 9672 Sep, [facility] [address] [facility] [address] [id number], [place] [address]- 8828 Aug, [facility] [address] [facility] [address] [id number][place] 8405 Aug, [facility] [address] [facility] [address] [id number], [place] [address]- 9822 Aug, [facility] [address] [facility] [address] [id number], [place] [address]- 2143 Aug, [facility] [address] [facility] [address] [id number], [place] [address]- 8207 Aug, [facility] [address] [facility] [address] [id number][place] 0422 Jun, [facility] [address] 9631 Jun, [facility] [address], [place] [address]- 6206 Jun, [facility] [address] [facility] [address] [id number], [place] [address]- 5855 Jun, [facility] [address] [id number] [address]- 2154 Jun, [facility] [address] [id number], [place] [address]- 9975 Jun, [facility] [id number] [address]- 7103 Jun, [facility] [address] [facility] [address] [id number], [place] [address]- 0935 Mar, [facility] [address], [place] [address]- 8072 Mar, IMMUNIZATIONS No Known Immunizations SOCIAL HISTORY Never Assessed REASON FOR VISIT stomach, colon issues--tcuppettRN, -Lower abdominal pain intermittently during the day since childbirth back in January. Also having acid reflux PLAN OF CARE Activity Details Follow Up pending us Reason: VITAL SIGNS Height 65 in 2017-09-23 Weight 260.7 lbs 2017-09-23 Temperature 97.9 degrees Fahrenheit 2017-09-23 Heart Rate 76 bpm 2017-09-23 Respiratory Rate 20 2017-09-23 BMI 43.38 kg/m2 2017-09-23 Blood pressure systolic 118 mmHg 2017-09-23 Blood pressure diastolic 82 mmHg 2017-09-23 MEDICATIONS Medication Instructions Dosage Frequency Start Date End Date Duration Status Famotidine 40 mg Orally Once a day 1 tablet 24h Sep, 30 day(s) Active Colace 100 MG Orally 2 times a day prn 1 capsule as needed Active RESULTS Name Result Date Reference Range Ultrasound : Pelvic, COMPLETE (REFLEX CPT-[id number]) 2017-10-05 PROCEDURES No Known procedures INSTRUCTIONS MEDICATIONS ADMINISTERED No Known Medications MEDICAL (GENERAL) HISTORY Type Description Date Medical History abdominal pain Medical History IBS Medical History High risk sexual behavior Medical History Leukopenia Medical History History of palpitations Medical History Galactorrhea in female Medical History Acid Reflux Medical History 2.9 cm left ovarian cyst per us Surgical History appendectomy age 12-13 Surgical History cyct removal on LT [facility] 01/03 Hospitalization History Hospitalization for surgery only Hospitalization History childbirth
--- OUTSIDE RECORDS SUMMARY | 2018-01-30 17:25 | XMS REPORT ---
Author Author CRISTA ROSALES [facility] Address [address] [place] [address] Care Team Providers Care Labor Employment Associate Name Role Phone CRISTA ROSALES Unavailable PROBLEMS Type Condition ICD9-CM Code FRL11-LD Code Onset Dates Condition Status SNOMED Code Problem Major depressive disorder, single episode, unspecified F32.9 Active 52152067 Problem History of anemia Z86.2 Active 834675570 Problem Panic attacks F41.0 Active 389532258 Problem Migraine headache G43.909 Active 47875202 Problem History of long-term use of multiple prescription drugs Z92.29 Active 756637990 Problem Chronic GERD K21.9 Active 765711246 Problem Anxiety and depression F41.8 Active 995414598 Problem Abnormal thyroid blood test R94.6 Active 815649959 Problem Mixed hyperlipidemia E78.2 Active 094724168 Problem 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 Active 03596069 Problem Late menses N91.0 Active 161634855 ALLERGIES No Information ENCOUNTERS Encounter Location Date Diagnosis [facility] [id number] [place] [address]1575 -3717 October, Seasonal allergic rhinitis, unspecified trigger J30.2 and BMI 40.0-44.9, adult Z68.41 [facility] [id number] [place] [address] 70848- 1925 Sep, Pelvic pain R10.2 ; Chronic GERD K21.9 and BMI 40.0-44.9, adult Z68.41 [facility] [id number] [place] [address] 09550- 6384 Jul, [facility] [address] [place] [address] 38456 -5450 Apr, Sore throat J02.9 ; Acute recurrent streptococcal tonsillitis J03.01 and BMI 40.0-44.9, adult Z68.41 [facility] [id number] [place] [address]55 -6127 Mar, Sore throat J02.9 and Acute non-recurrent streptococcal tonsillitis J03.00 [place] [id number] [place] [address] 80066- 9992 Feb, [id number] [place] [id number] Jan, Anxiety and depression F41.8 [id number] [place] [id number] Dec, [place] [id number] [place] [address] 68095- 0146 Nov, [place] [address] 67[address]- 5263 Jun, Normal in multigravida Z34.80 and First trimester Z33.1 [place] [id number] [place] [address] 18354- 1011 Jun, 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 and Ota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 ear H92.01 [place] [id number] [place] [address] 69987- 6440 May, [facility] [place] [id number] [place] [address] 34347 -5040 May, Late menses N91.0 and Acute suppurative otitis media of left ear without spontaneous rupture of tympanic membrane, recurrence not specified H66.002 [place] [address] 71237- 3556 May, [place] [id number] [place] [address] 50300- 2899 Apr, [facility] [id number] [place] [address] 21960 -6973 Apr, Vaginal discharge N89.8 and Vaginal yeast infection B37.3 [facility] [address] [address] 96[address] Mar, [facility] [address] [address] 9637 Feb, [facility] [id number] [place] [address] 14782- 8520 Feb, [facility] [address] [place] [address] 92332- 9855 Feb, Abnormal cholesterol test E78.9 [place] [address] [place] [address] 84687- 6951 Feb, History of UTI Z87.440 ; Mixed hyperlipidemia E78.2 and Abnormal thyroid blood test R94.6 [facility] [id number] [id number] Jan, [facility] [address] [address] 3[address] Jan, [place] [id number] [place] [address] 28687- 1575 Jan, Chest pain, unspecified type R07.9 ; Palpitations R00.2 ; Hyperlipidemia, unspecified hyperlipidemia type E78.5 and Dyspnea, unspecified type R06.00 [facility] [address] [address] 1275 Jan, [facility] [address] [address] 5194 Dec, [facility] [id number] [place] [address] 68267 -4748 Dec, Upper respiratory tract infection, unspecified type J06.9 [facility] [address] [address]- 7627 Dec, Major depressive disorder, single episode, unspecified F32.9 and Panic attacks F41.0 [place] [id number] [place] [address] 12931- 2497 Nov, History of anemia Z86.2 ; Abnormal thyroid blood test R94.6 ; Mixed hyperlipidemia E78.2 ; Migraine headache G43.909 and Acute maxillary sinusitis, recurrence not specified J01.00 [place] [address] 59513- 8378 Nov, 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 and Chondromalacia patellae of right knee M22.41 [place] [address] 88063- 4841 Nov, Abnormal thyroid blood test R94.6 and Abnormal cholesterol test E78.9 [place] [address] 07419- 2167 October, History of palpitations Z87.898 ; Pain in left knee M25.562 and Pain in right knee M25.561 [place] [address] 31131- 5597 Sep, Pelvic pain in female 625.[address] [address]99- 0168 Sep, Pelvic pain R10.2 ; Galactorrhea in female N64.3 ; Knee pain , left M25.562 and Knee pain, right M25.561 [facility] [address] 63962 -4055 Aug, Cough R05 and Laceration of thumb, left S61.012A [address] 79274- 4807 Aug, Cough R05 ; History of UTI Z87.440 and Contraception management Z30.9 [place] [address] 47479- 7322 Aug, History of UTI Z87.440 and Irregular menses N92.6 [place] [address] 22747- 9004 18 Jul, 2015 Leukopenia D72.819 and Neutropenia D70.[address] 52707- 4473 18 Jul, 2015 Leukopenia D72.819 and Neutropenia D70.[address] 82053- 8179 17 Jul, 2015 Migraine headache G43.909 ; Heart burn R12 and History of long-term use of multiple prescription drugs Z92.29 [facility] [address] 16983 -7552 15 Jul, 2015 Vaginal discharge N89.8 ; High risk sexual behavior Z72.51 ; Unprotected sex Z72.51 ; Acute upper respiratory infection, unspecified J06.9 and Other viral agents as the cause of diseases classified elsewhere B97.89 [place] [address] 91263- 4417 04 Jul, 2015 Sore throat J02.9 ; Sinusitis J32.9 and Fever R50.[address] 08686- 3281 27 Jun, 2015 Migraine headache G43.909 and Heart burn R12 [address] 65051- 0738 14 Jun, 2015 [place] [address] 61365- 7877 07 Jun, 2015 [place] [address] 17506- 6198 06 Jun, 2015 Encounter for Depo-Provera contraception Z30.42 ; Evaluation regarding contraception options Z30.09 ; Encntr 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 figure 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 exam (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 ) (routine) w/o abn findings Z01.419 ; Pelvic pain R10.2 ; Migraine headache G43.909 and Vaginal discharge N89.8 [place] [address] 35394- 3599 May, Encounter for immunization Z23 ; Overweight E66.3 ; Pain of right thumb M79.644 and Headache R51 [facility] [address] 58601 -[address]141 May, Insect bite of shoulder S40.269A [facility] [address] 52788 -6538 May, Sore throat J02.9 [facility] [address] 85059- 0105 24 Feb, 2015 Pelvic pain in female 625.9 and Menorrhagia 626.2 [facility] [address] 90182- 6468 Dec, Diarrhea 787.91 [facility] [address] 95179- 5313 Dec, Pelvic pain in female 625.9 and Ganglion cyst of wrist 727.41 [facility] [address] 79141- 5081 Nov, Eczema 692.9 [facility] [address] 26310- 5610 Nov, [facility] [id number] [place] [address] 78644- 2195 Sep, [facility] [address] 82889- 0300 Sep, [facility] [address] 94653- 5564 Jul, [facility] [address] 44584- 6413 Jul, [facility] [address] 74369- 7374 Jun, [facility] [address] [facility] [address]- 8738 Jun, [facility] [place] [facility] [address] [id number] [place] [address]- 0779 Jun, [facility] [place] [facility] [address] [id number] [place] [address]- 8291 Jun, [facility] [place] [facility] [address] [id number] [place] [address]- 7519 Jun, [facility] [place] [facility] [address] [id number] [place] [address]- 7233 Jun, [facility] [place] [facility] [address] [id number] [place] [address]- 1758 Jun, [facility] [place] [facility] [address] [id number] [place] [address]- 1489 Jun, [facility] [place] [facility] [address] [id number] [place] [address]- 4622 May, [facility] [place] [facility] [address] [id number] [place] [address]- 7435 May, [facility] [place] [facility] [address] [id number] [place] [address]- 8391 May, [facility] [place] [facility] [address] [facility] [id number] [place] [address]- 3933 May, [facility] [place] [facility] [address] [id number] [place] [address]- 8728 Apr, [facility] [place] [facility] [address] [id number] [place] [address]- 2346 Apr, [facility] [place] [facility] [address] [id number] [place] [address]- 6890 Apr, [facility] [place] [facility] [address] [id number] [place] [address]- 5096 Apr, [facility] [place] [facility] [address] [id number] [place] 3588 Apr, [facility] [place] [facility] [address] [id number] [place] [address]- 0765 Apr, [facility] [place] [facility] [address] [id number] [place] [address]- 5672 29 Feb, 2013 [facility] [place] [facility] [address] [id number] [place] [address] 2545 29 Feb, 2013 [facility] [place] [facility] [address] [id number] [place] [address] 2540 26 Feb, 2013 [facility] [place] [facility] [address] [id number] [place] [address]- 0186 26 Feb, 2013 [facility] [place] [facility] [address] [id number] [place] [address]- 7251 Feb, 2013 [facility] [place] [facility] [address] [id number] [place] [address]- 2810 Feb, 2013 [facility] [place] [facility] [address] [id number] [place] [address]- 2989 25 Feb, 2013 [facility] [place] [facility] [address] [id number] [place] [address]- 6953 25 Feb, 2013 [facility] [place] [facility] [address] [id number] [place] [address]- 3681 23 Feb, 2013 [facility] [place] [facility] [address] [id number] [place] [address]- 4462 23 Feb, 2013 [facility] [place] [facility] [address] [id number] [place] [address]- 2541 22 Feb, 2013 [facility] [place] [facility] [address] [id number] [place] [address]- 2548 22 Feb, 2013 [facility] [place] [facility] [address] [id number] [place] [address]- 2540 19 Feb, 2013 [facility] [place] [facility] [address] [id number] [place] [address]- 2542 19 Feb, 2013 [facility] [place] [facility] [address] [id number] [place] [address]- 0316 12 Feb, 2014 [facility] [place] [facility] [address] [id number] [place] [address]- 2159 Feb, [facility] [place] [facility] [address] [id number] [place] [address]- 1786 Feb, [facility] [place] [facility] [address] [id number] [place] [address]- 0647 Feb, [facility] [place] [facility] [address] [id number] [place] [address]- 2628 Feb, [facility] [place] [facility] [address] [id number] [place] [address]- 6695 Feb, [facility] [place] [facility] [address] [id number] [place] [address]- 4939 Jan, [facility] [place] [facility] [address] [id number] [place] [address]- 3060 Jan, [facility] [place] [facility] [address] [id number] [place] [address]- 4327 Jan, [facility] [place] [facility] [address] [id number] [place] [address]- 1647 Jan, [facility] [place] [facility] [address] [id number] [place] [address]- 4960 Jan, [facility] [place] [facility] [address] [id number] [place] [address]- 0893 Jan, [facility] [place] [facility] [address] [id number] [place] [address]- 2072 Jan, [facility] [place] [facility] [address] [id number] [place] [address]- 7975 Jan, [facility] [place] [facility] [address] [id number] [place] [address]- 1989 Dec, [facility] [place] [facility] [address] [id number] [place] [address]- 4973 Dec, [facility] [place] [facility] [address] [id number] [place] [address]- 2997 Dec, [facility] [place] [facility] [address] [id number] [place] [address]- 4141 Dec, [facility] [place] [facility] [address] [id number] [place] [address]- 3626 Dec, [facility] [place] [facility] [address] [id number] [place] [address]- 3363 Dec, [facility] [place] [facility] [address] [id number] [place] [address]- 5147 Dec, [facility] [place] [facility] [address] [id number] [place] [address]- 6836 Dec, [facility] [place] [facility] [address] [id number] [place] [address]- 9016 Dec, [facility] [place] [facility] [address] [id number] [place] [address]- 0179 Dec, [facility] [place] [facility] [address] [id number] [place] [address]- 6264 Dec, [facility] [place] [facility] [address] [id number] [place] [address]- 1272 Dec, [facility] [place] [facility] [address] [id number] [place] [address]- 3721 Nov, [facility] [place] [facility] [address] [id number] [place] [address]- 4383 Nov, [facility] [place] [facility] [address] [id number] [place] [address]- 7511 Nov, [facility] [place] [facility] [address] [id number] [place] [address]- 2788 Nov, [facility] [place] [facility] [address] [id number] [place] [address]- 9121 Nov, [facility] [place] [facility] [address] [id number] [place] [address]- 7744 Nov, [facility] [place] [facility] [address] [id number] [place] [address]- 3058 Nov, [facility] [place] [facility] [address] [id number] [place] [address]- 6813 Nov, [facility] [place] [facility] [address] [id number] [place] [address]- 4220 Nov, [facility] [place] [facility] [address] [id number] [place] [address]- 9899 Nov, [facility] [place] [facility] [address] [id number] [place] [address]- 2179 October, [facility] [place] [facility] [address] [id number] [place] [address]- 6976 October, [facility] [place] [facility] [address] [id number] [place] [address]- 4508 October, [facility] [place] [facility] [address] [id number] [place] [address]- 1773 October, [facility] [place] [facility] [address] [id number] [place] [address]- 4310 October, [facility] [place] [facility] [address] [id number] [place] [address]- 0082 October, [facility] [place] [facility] [address] [id number] [place] [address]- 7230 Sep, [facility] [place] [facility] [address] [id number] [place] [address]- 7595 Sep, [facility] [place] [facility] [address] [id number] [place] [address]- 6537 Sep, [facility] [place] [facility] [address] [id number] [place] [address]- 4858 Sep, [facility] [place] [facility] [address] [id number] [place] [address]- 9801 Sep, [facility] [place] [facility] [address] [id number], [place] [address]- 9894 Sep, [facility] [address] [facility] [id number] [address]- 2426 Aug, [facility] [id number] [address]- 0970 Aug, [facility] [address] [place] [address]- 0908 Aug, [facility] [address] [facility] [id number], [place] [address]- 3894 Aug, [facility] [address] [place] [address]- 0225 Aug, [facility] [address] [place] [address]- 9543 Jun, [facility] [address] [place] [address]- 6962 Jun, [facility] [address] [address]- 1679 Jun, [facility] [address] [place] [address]- 9915 Jun, [facility] [address] [place] [address]- 1983 Jun, [facility] [address], [place] [address]- 9785 Jun, [facility] [id number] [address]- 4130 Jun, [facility] [address] [address]- 3176 Mar, [facility] [address], [place] [address]- 7038 Mar, IMMUNIZATIONS No Known Immunizations SOCIAL HISTORY Never Assessed REASON FOR VISIT Refill request PLAN OF CARE VITAL SIGNS MEDICATIONS Medication Instructions Dosage Frequency Start Date End Date Duration Status Pepcid 20 mg Orally Once a day 1 tablet at bedtime 24h Active RESULTS No Results PROCEDURES No Known procedures INSTRUCTIONS MEDICATIONS ADMINISTERED [...] 12-13 Surgical History cyct removal on LT wrist 01/03 Hospitalization History Hospitalization for surgery only Hospitalization History childbirth
--- OUTSIDE RECORDS SUMMARY | 2018-01-30 17:26 | XMS REPORT ---
Author Author CRISTA ROSALES Organization [facility] Address [address] [place] [address] Care Team Providers Care Sanitation Superintendent Name Role Phone CRISTA ROSALES Unavailable PROBLEMS Type Condition ICD9-CM Code RWN84-PU Code Onset Dates Condition Status SNOMED Code Problem History of long-term use of multiple prescription drugs Z92.29 Active 376199426 Problem Panic attacks F41.0 Active 262916209 Problem Major depressive disorder, single episode, unspecified F32.9 Active 34690929 Problem Migraine headache G43.909 Active 61333620 Problem Heart burn R12 Active 61805006 Problem Anxiety and depression F41.8 Active 891070526 Problem 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 Active 16683080 Problem Mixed hyperlipidemia E78.2 Active 204044244 Problem History of anemia Z86.2 Active 468100044 Problem Late menses N91.0 Active 130623980 Problem Abnormal thyroid blood test R94.6 Active [id number] ALLERGIES No Information ENCOUNTERS Encounter Location Date Diagnosis [facility] [id number] [place] [address] 02997- 7461 Sep, [facility] [id number] [place] [address] 78720- 9491 Jul, [facility] [id number] [place] [address] 68201 -7446 Apr, Sore throat J02.9 ; Acute recurrent streptococcal tonsillitis J03.01 and BMI 40.0-44.9, adult Z68.41 [facility] [id number] [place] [address] 70860 -8714 09 Mar, 2017 Sore throat J02.9 and Acute non-recurrent streptococcal tonsillitis J03.00 [facility] [id number] [address]76 Feb, [facility] [address] [facility] [facility] [address] [id number] [place] [id number] Jan, Anxiety and depression F41.8 [facility] [address] [facility] [facility] [facility] [address] [id number] [place] [id number] Dec, [facility] [id number] [place] [address] 94816- 2231 Nov, [facility] [id number] [place] [address] 03602- 5060 Jun, Normal in multigravida Z34.80 and First trimester Z33.1 [place] [id number] [place] [address] 71944- 5394 Jun, 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 and Ota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 ear H92.01 [place] [id number] [place] [address] 80590- 4569 May, [facility] [id number] [place] [address] 27272 -9098 May, Late menses N91.0 and Acute suppurative otitis media of left ear without spontaneous rupture of tympanic membrane, recurrence not specified H66.002 [facility] [id number] [place] [address] 75738- 4762 May, [facility] [id number] [place] [address] 41962- 6159 Apr, [facility] [id number] [place] [address] 80939 -5109 Apr, Vaginal discharge N89.8 and Vaginal yeast infection B37.3 [facility] [id number] [place] [address] 88341- 5357 Mar, [facility] [id number] [place] [address] 92786- 2353 Feb, [place] [id number] [address] 6819 Feb, [facility] [id number] [place] [address] 59873- 5776 15 Feb, 2016 Abnormal cholesterol test E78.9 [facility] [id number] [address] 3919 14 Feb, 2016 History of UTI Z87.440 ; Mixed hyperlipidemia E78.2 and Abnormal thyroid blood test R94.6 [facility] [place] [id number] [id number] Jan, [facility] [id number] [place] [address] 99863- 3588 Jan, [place] [id number] [place] [address] 93469- 2279 Jan, Chest pain, unspecified type R07.9 ; Palpitations R00.2 ; Hyperlipidemia, unspecified hyperlipidemia type E78.5 and Dyspnea, unspecified type R06.00 [place] [id number] [place] [address] 08702- 0228 Jan, [facility] [id number] [place] [address] 41323- 2598 Dec, [facility] [address] [address] Dec, Upper respiratory tract infection, unspecified type J06.9 [facility] [address] [address] 9863 Dec, Major depressive disorder, single episode, unspecified F32.9 and Panic attacks F41.0 [facility] [id number] [place] [address] 60838- 8559 30 Nov, 2015 History of anemia Z86.2 ; Abnormal thyroid blood test R94.6 ; Mixed hyperlipidemia E78.2 ; Migraine headache G43.909 and Acute maxillary sinusitis, recurrence not specified J01.00 [facility] [id number] [place] [address] 79368- 9250 Nov, 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 and Chondromalacia patellae of right knee M22.41 [place] [address] 67645- 2779 Nov, Abnormal thyroid blood test R94.6 and Abnormal cholesterol test E78.9 [place] [address] 10764- 8282 October, History of palpitations Z87.898 ; Pain in left knee M25.562 and Pain in right knee M25.561 [place] [address] 74248- 9338 Sep, Pelvic pain in female 625.9 [place] [address] 48160- 3680 Sep, Pelvic pain R10.2 ; Galactorrhea in female N64.3 ; Knee pain , left M25.562 and Knee pain, right M25.561 [facility] [address] 32212 -3984 Aug, Cough R05 and Laceration of thumb, left S61.012A [place] [id number] [place] [address] 00715- 1954 Aug, Cough R05 ; History of UTI Z87.440 and Contraception management Z30.9 [place] [id number] [place] [address] 24341- 0437 Aug, History of UTI Z87.440 and Irregular menses N92.6 [place] [address] 89141- 9005 Jul, Leukopenia D72.819 and Neutropenia D70.9 [place] [id number] [place] [address] 33015- 2773 Jul, Leukopenia D72.819 and Neutropenia D70.9 [place] [id number] [place] [address] 30678- 6729 17 Jul, 2015 Migraine headache G43.909 ; Heart burn R12 and History of long-term use of multiple prescription drugs Z92.29 [facility] [place] [id number] [place] [address] 94663 -1489 15 Jul, 2015 Vaginal discharge N89.8 ; High risk sexual behavior Z72.51 ; Unprotected sex Z72.51 ; Acute upper respiratory infection, unspecified J06.9 and Other viral agents as the cause of diseases classified elsewhere B97.[address] 16122- 9945 04 Jul, 2015 Sore throat J02.9 ; Sinusitis J32.9 and Fever R50.[address] 53498- 6917 27 Jun, 2015 Migraine headache G43.909 and Heart burn R12 [place] [address] 40748- 5955 14 Jun, [address] 86811- 5062 07 Jun, 2015 [place] [address] 33777- 7664 06 Jun, 2015 Encounter for Depo-Provera contraception Z30.42 ; Evaluation regarding contraception options Z30.09 ; Encntr for obstetrics gynecology physician exam (general ) (routine) w/o abn findings Z01.419 ; Pelvic pain R10.2 ; Migraine headache G43.909 and Vaginal discharge N89.[address] 42716- 3332 10 May, 2015 Encounter for immunization Z23 ; Overweight E66.3 ; Pain of right thumb M79.644 and Headache R51 [facility] [id number] [place] [address] 05889 -5066 03 May, 2015 Insect bite of shoulder S40.269A [facility] [address] [address] May, Sore throat J02.9 [facility] [id number] [place] [address] 93607- 5339 24 Feb, 2015 Pelvic pain in female 625.9 and Menorrhagia 626.2 [facility] [id number] [place] [address] 33783- 3486 Dec, Diarrhea 787.91 [facility] [id number] [place] [address] 42825- 6213 Dec, Pelvic pain in female 625.9 and Ganglion cyst of wrist 727.41 [facility] [id number] [place] [address] 36226- 2430 Nov, Eczema 692.9 [facility] [id number] [place] [address] 83166- 3015 Nov, [facility] [id number] [place] [address] 59609- 7635 Sep, [facility] [id number] [place] [address] 93022- 8508 Sep, [facility] [id number] [place] [address] 77506- 3846 Jul, [facility] [id number] [place] [address] 60325- 5501 Jul, [facility] [id number] [place] [address] 71491- 7915 Jun, [facility] [id number] [place] [address] 11492- 1286 Jun, [facility] [id number] [place] [address] 23498- 7882 Jun, [facility] [id number] [place] [address] 74401- 2016 Jun, [facility] [place] [facility] [address] [id number] [place] [address]- 5183 Jun, [facility] [place] [facility] [address] [id number] [place] [address]- 0651 Jun, [facility] [place] [facility] [address] [id number] [place] [address]- 9458 Jun, [facility] [place] [facility] [address] [id number] [place] [address]- 8753 Jun, [facility] [place] [facility] [address] [id number] [place] [address]- 4465 May, [facility] [place] [facility] [address] [id number] [place] [address]- 8398 May, [facility] [place] [facility] [address] [id number] [place] [address]- 3382 May, [facility] [place] [facility] [address] [id number] [place] [address]- 8096 May, [facility] [place] [facility] [address] [id number] [place] [address]- 3686 Apr, [facility] [place] [facility] [address] [id number] [place] [address]- 1804 Apr, [facility] [place] [facility] [address] [id number] [place] [address]- 9731 Apr, [facility] [place] [facility] [address] [id number] [place] [address]- 2615 Apr, [facility] [place] [facility] [address] [id number] [place] [address]- 7205 Apr, [facility] [place] [facility] [address] [id number] [place] [address]- 3525 Apr, [facility] [place] [facility] [address] [id number] [place] [address]- 1339 Feb, [facility] [place] [facility] [address] [id number] [place] [address]- 0677 29 Sep, 2013 [facility] [place] [facility] [address] [id number] [place] [address] 2546 26 Sep, 2013 [facility] [place] [facility] [address] [id number] [place] [address] 2546 26 Sep, 2013 [facility] [place] [facility] [address] [id number] [place] [address] 2546 26 Sep, 2013 [facility] [place] [facility] [address] [id number] [place] [address] 254 26 Feb, 2013 [facility] [place] [facility] [address] [id number] [place] [address]- 3396 25 Feb, 2013 [facility] [place] [facility] [address] [id number] [place] [address]- 0209 25 Feb, 2013 [facility] [place] [facility] [address] [id number] [place] [address]- 3276 23 Feb, 2013 [facility] [place] [facility] [address] [id number] [address]- 7295 23 Feb, 2013 [facility] [place] [facility] [address] [id number] [place] [address]- 2540 22 Feb, 2013 [facility] [place] [facility] [address] [id number] [place] [address]- 9442 22 Feb, 2013 [facility] [place] [facility] [address] [id number] [address] 2544 19 Feb, 2013 [facility] [place] [facility] [address] [id number] [address] 2546 19 Feb, 2013 [facility] [place] [facility] [address] [id number] [address] 2546 12 Feb, 2013 [facility] [place] [facility] [address] [id number] [address]- 254 10 Feb, 2013 [facility] [place] [facility] [address] [id number] [address]- 2546 10 Feb, 2013 [facility] [place] [facility] [address] [id number] [place] [address]- 7405 Feb, [facility] [place] [facility] [address] [id number] [place] [address]- 2880 Feb, [facility] [place] [facility] [address] [id number] [place] [address]- 6559 Feb, [facility] [place] [facility] [address] [id number] [place] [address]- 8252 Jan, [facility] [place] [facility] [address] [id number] [place] [address]- 0713 Jan, [facility] [place] [facility] [address] [id number] [place] [address]- 4567 Jan, [facility] [place] [facility] [address] [id number] [place] [address]- 7263 Jan, [facility] [place] [facility] [address] [id number] [place] [address]- 0753 Jan, [facility] [place] [facility] [address] [id number] [place] [address]- 7611 Jan, [facility] [place] [facility] [address] [id number] [place] [address]- 3393 Jan, [facility] [place] [facility] [address] [id number] [place] [address]- 5609 Jan, [facility] [place] [facility] [address] [id number] [place] [address]- 0404 Dec, [facility] [place] [facility] [address] [id number] [place] [address]- 5896 Dec, [facility] [place] [facility] [address] [id number] [place] [address]- 8069 Dec, [facility] [place] [facility] [address] [id number] [place] [address]- 1329 Dec, [facility] [place] [facility] [address] [id number] [place] [address]- 4554 Dec, [facility] [place] [facility] [address] [id number] [place] [address]- 6496 Dec, [facility] [place] [facility] [address] [id number] [place] [address]- 8239 Dec, [facility] [place] [facility] [address] [id number] [place] [address]- 0604 Dec, [facility] [place] [facility] [address] [id number] [place] [address]- 5339 Dec, [facility] [place] [facility] [address] [id number] [place] [address]- 2265 Dec, [facility] [place] [facility] [address] [id number] [place] [address]- 2418 Dec, [facility] [place] [facility] [address] [id number] [place] [address]- 4216 Dec, [facility] [place] [facility] [address] [id number] [place] [address]- 8274 Nov, [facility] [place] [facility] [address] [id number] [place] [address]- 6782 Nov, [facility] [place] [facility] [address] [id number] [place] [address]- 5731 Nov, [facility] [place] [facility] [address] [id number] [place] [address]- 8497 Nov, [facility] [place] [facility] [address] [id number] [place] [address]- 1319 Nov, [facility] [place] [facility] [address] [id number] [place] [address]- 3324 Nov, [facility] [place] [facility] [address] [id number] [place] [address]- 3801 Nov, [facility] [place] [facility] [address] [id number] [place] [address]- 0946 Nov, [facility] [place] [facility] [address] [id number] [place] [address]- 9055 Nov, [facility] [place] [facility] [address] [id number] [place] [address]- 4516 Nov, [facility] [place] [facility] [address] [id number] [place] [address]- 0069 October, [facility] [place] [facility] [address] [id number] [place] [address]- 2452 October, [facility] [place] [facility] [address] [id number] [place] [address]- 2646 October, [facility] [place] [facility] [address] [id number] [place] [address]- 5904 October, [facility] [place] [facility] [address] [id number] [place] [address]- 2711 October, [facility] [place] [facility] [address] [id number] [place] [address]- 2724 October, [facility] [place] [facility] [address] [id number] [place] [address]- 0224 Sep, [facility] [place] [facility] [address] [id number] [place] [address]- 1128 Sep, [facility] [place] [facility] [address] [id number] [place] [address]- 7074 Sep, [facility] [place] [facility] [address] [id number] [place] [address]- 2334 Sep, [facility] [place] [facility] [address] [id number] [place] [address]- 1761 Sep, [facility] [place] [facility] [address] [id number] [place] [address]- 0456 Sep, [facility] [place] [facility] [address] [id number] [place] [address]- 1611 Aug, [facility] [place] [facility] [address] [id number] [place] [address]- 1730 Aug, [facility] [place] [facility] [id number] [address] 2842 Aug, [facility] [id number] [address]- 1170 Aug, [facility] [address] [address]- 3212 Aug, [facility] [address] 4855 Jun, [facility] [address] [address]- 6389 Jun, [facility] [address] 5376 Jun, [facility] [address] [address]- 8673 Jun, [facility] [address] [address]- 6343 Jun, [facility] [address] [address]- 9826 Jun, [facility] [address] [address]- 6439 Jun, [facility] [id number] [address]- 7465 Mar, [facility] [id number] [address] 9804 Mar, IMMUNIZATIONS No Known Immunizations SOCIAL HISTORY Never Assessed REASON FOR VISIT Waiting for call back PLAN OF CARE VITAL SIGNS MEDICATIONS Unknown Medications RESULTS No Results PROCEDURES No Known procedures INSTRUCTIONS MEDICATIONS ADMINISTERED No Known Medications MEDICAL (GENERAL) HISTORY Type Description Date Medical History abdominal pain Medical History IBS Medical History High risk sexual behavior Medical History Leukopenia Medical History History of palpitations Medical History Galactorrhea in female Medical History Acid Reflux Surgical History appendectomy age 12-13 Surgical History cyct removal on LT 01/03 Hospitalization History Hospitalization for surgery only Hospitalization History childbirth
--- OUTSIDE RECORDS SUMMARY | 2018-01-30 17:26 | XMS REPORT ---
Author Author KIARA MAO [facility] Address [address] [place] [address] Care Team Providers Care Apple Press Operator Name Role Phone KIARA MAO Unavailable PROBLEMS Type Condition ICD9-CM Code CDP94-PU Code Onset Dates Condition Status SNOMED Code Problem History of long-term use of multiple prescription drugs Z92.29 Active 991596086 Problem Panic attacks F41.0 Active 395547408 Problem Major depressive disorder, single episode, unspecified F32.9 Active 99083976 Problem Migraine headache G43.909 Active 16547520 Problem Heart burn R12 Active 25304300 Problem Anxiety and depression F41.8 Active 670677468 Problem 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 Active 74305034 Problem Mixed hyperlipidemia E78.2 Active 948293111 Problem History of anemia Z86.2 Active 306976203 Problem Late menses N91.0 Active 588205053 Problem Abnormal thyroid blood test R94.6 Active 366909253 ALLERGIES Substance Reaction Event Type Date Status N.K.D.A. Unknown Non Drug Allergy Jun, Unknown SOCIAL HISTORY No smoking Hx information available PLAN OF CARE Activity Details Follow Up 4 Weeks Reason: VITAL SIGNS Height 65 in 2016-07-09 Weight 215.0 lbs 2016-07-09 Temperature 98.4 degrees Fahrenheit 2016-07-09 Heart Rate 72 bpm 2016-07-09 Respiratory Rate 18 2016-07-09 BMI 35.778 kg/m2 2016-07-09 Blood pressure systolic 124 mmHg 2016-07-09 Blood pressure diastolic 70 mmHg 2016-07-09 MEDICATIONS Medication Instructions Dosage Frequency Start Date End Date Duration Status Ortho Tri-Cyclen (28) 0.18/0.215/0.25 MG-35 MCG Orally Once a day 1 tablet 24h Aug, 28 day(s) Active Pepcid 20 mg Orally Once a day 1 tablet at bedtime 24h Active Topamax 50 MG Orally bid 1 tablet 12h 30 Active Pravastatin Sodium 20 mg Orally Once a day 1 tablet 24h Nov, 90 Active Vitamins (Dis) Orally Once a day 1 tablet 24h Active MiraLax 17 gm/dose Orally every other day 1 cap full Apr, Active Lipitor 10 MG Orally Once a day 1 tablet 24h Active Fish Oil 1000 MG Orally Once a day at hs 2 tablets Feb, Active Colace 100 MG Orally 2 times a day prn 1 capsule as needed Active RESULTS Name Result Date Reference Range TRICHOMONAS (IN HOUSE) 2016-07-09 TRICHOMONAS negative Control + Lot # [id number] Exp date 07/2017 URINE DRUG SCREEN (IN HOUSE) 2016-07-09 Lot # [id number] Exp date 01/06 Control + COCAINE negative AMPH negative MTD negative THC negative OPIATE negative BENZO negative PCP negative BAR negative OXY negative MAMP negative TCA negative BUP negative MDMA negative UA LONG DIP (IN HOUSE) 2016-07-09 Lot # [id number] Exp date 04/2017 Clarity clear Color yellow Odor no GLU Negative GERRI Negative KET Negative SG >=1/030 BLO Trace-intact pH 6.0 Protein Negative URO 0.2 NIT Negative ARNOLDO Negative Lot # Exp BACTERIAL VAGINOSIS (IN HOUSE) 2016-07-09 RESULTS negative Control + Lot # [id number] Exp date 01/2017 TSH () 2016-07-09 TSH 1.410 0.450-4.500 PAP TEST, HPV IF ASCUS 2016-07-09 DIAGNOSIS: Specimen adequacy: Clinician provided ICD10: Performed by: . . Note: . CBC 2016-07-09 WBC 6.6 3.4-10.8 RBC 4.18 3.77-5.28 Hemoglobin 12.9 11.1-15.9 Hematocrit 38.2 34.0-46.6 MCV 91 79-97 MCH 30.9 26.6-33.0 MCHC 33.8 31.5-35.7 RDW 13.8 12.3-15.4 Platelets 207 150-379 Neutrophils 64 Lymphs 29 Monocytes 5 Eos 1 Basos 1 Neutrophils (Absolute) 4.3 1.4-7.0 Lymphs (Absolute) 1.9 0.7-3.1 Monocytes(Absolute) 0.4 0.1-0.9 Eos (Absolute) 0.1 0.0-0.4 Baso (Absolute) 0.0 0.0-0.2 Immature Granulocytes 0 Immature Grans (Abs) 0.0 0.0-0.1 ANTIBODY SCREEN 2016-07-09 Antibody Screen Negative Negative BLOOD TYPE/RH FACTOR 2016-07-09 ABO Grouping A Rh Factor Positive RUBELLA ANTIBODIES, IgG 2016-07-09 Rubella Antibodies, IgG 2.98 Immune >0.99 CULTURE, GENITAL 2016-07-09 Genital Culture, Routine Final report Result 1 CULTURE, URINE 2016-07-09 Urine Culture, Routine Final report Result 1 PDF Report 2016-07-09 PDF Report1 [facility] Ultrasound : OB, Early <14 WEEKS 2016-07-17 GC/CHLAM PROBE (STATE) 2016-07-09 CHLAMYDIA Negative GC Negative SYPHILIS (STATE) 2016-07-09 HIV (STATE) 2016-07-09 HEP B SURFACE ANTIGEN (STATE) 2016-07-09 HEP B ANTIBODY non reactive HEP B ANTIBODY (RML) HEP B ANTIBODY (STATE) PROCEDURES Procedure Date Ordered Related Diagnosis Body Site URINALYSIS, AUTO, W/O SCOPE Jul 09, 2016 [facility] Jul [facility], 2016 Office Visit, Est Pt., Level 4 Jul 09, 2016 KELLY VAG, DNA, DIR PROBE Jul 09, 2016 VENIPUNCT, ROUTINE* Jul 09, 2016 IMMUNIZATIONS No Known Immunizations
--- OUTSIDE RECORDS SUMMARY | 2018-01-30 17:27 | XMS REPORT ---
Author Author CRISTA ROSALES [facility] Address [address] [place] [address] Care Team Providers Care Pickle Pumper Name Role Phone CRISTA ROSALES Unavailable PROBLEMS Type Condition ICD9-CM Code [id number] Code Onset Dates Condition Status SNOMED Code Problem History of long-term use of multiple prescription drugs Z92.29 Active 927039109 Problem Panic attacks F41.0 Active 928224143 Problem Major depressive disorder, single episode, unspecified F32.9 Active 57590724 Problem Migraine headache G43.909 Active 10290057 Problem Heart burn R12 Active 11796578 Problem Anxiety and depression F41.8 Active 678664665 Problem 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 Active 26791646 Problem Mixed hyperlipidemia E78.2 Active 115270440 Problem History of anemia Z86.2 Active 150035347 Problem Late menses N91.0 Active 498412348 Problem Abnormal thyroid blood test R94.6 Active 576365397 ALLERGIES Substance Reaction Event Type Date Status N.K.D.A. Unknown Non Drug Allergy Jun, Unknown SOCIAL HISTORY No smoking Hx information available PLAN OF CARE Activity Details Follow Up OB intake Reason: VITAL SIGNS Height 65 in 2016-07-08 Weight 213.0 lbs 2016-07-08 Temperature 97.5 degrees Fahrenheit 2016-07-08 Heart Rate 80 bpm 2016-07-08 Respiratory Rate 18 2016-07-08 BMI 35.44 kg/m2 2016-07-08 Blood pressure systolic 120 mmHg 2016-07-08 Blood pressure diastolic 74 mmHg 2016-07-08 MEDICATIONS Medication Instructions Dosage Frequency Start Date End Date Duration Status Colace 100 MG Orally 2 times a day prn 1 capsule as needed Active RESULTS No Results PROCEDURES Procedure Date Ordered Related Diagnosis Body Site Office Visit, Est Pt., Level 3 Jul 08, 2016 IMMUNIZATIONS No Known Immunizations
--- OUTSIDE RECORDS SUMMARY | 2018-01-30 17:27 | XMS REPORT ---
Author Author IVON ROSE Organization [facility] Address [address] [place] [address] Care Team Providers Care Clothespin Machine Operator Name Role Phone IVON ROSE Unavailable PROBLEMS Type Condition ICD9-CM Code BNL81-[id number] Code Onset Dates Condition Status SNOMED Code Problem History of long-term use of multiple prescription drugs Z92.29 Active 010219163 Problem Major depressive disorder, single episode, unspecified F32.9 Active 93999934 Problem Panic attacks F41.0 Active 878906960 Problem Migraine headache G43.909 Active 87672720 Problem Heart burn R12 Active 25279026 Problem Anxiety and depression F41.8 Active 808504116 Problem 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 Active 48393017 Problem History of anemia Z86.2 Active 206048824 Problem Abnormal thyroid blood test R94.6 Active 465603931 Problem Late menses N91.0 Active 802473352 Problem Mixed hyperlipidemia E78.2 Active 571616663 ALLERGIES Substance Reaction Event Type Date Status N.K.D.A. Unknown Non Drug Allergy May, Unknown SOCIAL HISTORY No smoking Hx information available PLAN OF CARE Activity Details Follow Up prn Reason: VITAL SIGNS Height 65 in 2016-06-17 Weight 207 lbs 2016-06-17 Temperature 98 degrees Fahrenheit 2016-06-17 Heart Rate 86 bpm 2016-06-17 Respiratory Rate 18 2016-06-17 BMI 34.44 kg/m2 2016-06-17 Blood pressure systolic 122 mmHg 2016-06-17 Blood pressure diastolic 78 mmHg 2016-06-17 MEDICATIONS Medication Instructions Dosage Frequency Start Date End Date Duration Status Azithromycin 250 MG Orally Once a day 2 tablets on the first day, then 1 tablet daily for 4 days 24h May, Jun, 5 day(s) Active RESULTS Name Result Date Reference Range TEST, SERUM (QUAL) 2016-06-17 hCG,Beta Subunit,Qual,Serum Positive Negative <6 PROCEDURES Procedure Date Ordered Related Diagnosis Body Site VENIPUNCT, ROUTINE* Jun 17, 2016 Office Visit, Est Pt., Level 3 Jun 17, 2016 IMMUNIZATIONS No Known Immunizations
--- OUTSIDE RECORDS SUMMARY | 2018-01-30 17:27 | XMS REPORT ---
Author Author CRISTA ROSALES Organization [facility] Address [address] [place] [address] Care Team Providers Care Licensed And Certified Midwife Name Role Phone CRISTA ROSALES Unavailable PROBLEMS Type Condition ICD9-CM Code XEE79-YU Code Onset Dates Condition Status SNOMED Code Problem Major depressive disorder, single episode, unspecified F32.9 Active 81519305 Problem History of anemia Z86.2 Active 980340195 Problem Panic attacks F41.0 Active 483097815 Problem Migraine headache G43.909 Active 40295541 Problem History of long-term use of multiple prescription drugs Z92.29 Active 544321418 Problem Chronic GERD K21.9 Active 375927563 Problem Anxiety and depression F41.8 Active 431362495 Problem Abnormal thyroid blood test R94.6 Active 720467442 Problem Mixed hyperlipidemia E78.2 Active 806374629 Problem 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 Active 55812182 Problem Late menses N91.0 Active 839923013 ALLERGIES No Information ENCOUNTERS Encounter Location Date Diagnosis [facility] [id number] [place] [address]360[address]1 Sep, Pelvic pain R10.2 ; Chronic GERD K21.9 and BMI 40.0-44.9, adult Z68.41 [facility] [id number] [place] [address] 69823- 6032 Jul, [facility] [id number] [place] [address]86 [address]3319 Apr, Sore throat J02.9 ; Acute recurrent streptococcal tonsillitis J03.01 and BMI 40.0-44.9, adult Z68.41 [facility] [address] [place] [address]777 [address]3 Mar, Sore throat J02.9 and Acute non-recurrent streptococcal tonsillitis J03.00 [facility] [id number] [place] [address] 31811- 9383 Feb, [facility] [address] [facility] [id number] [id number] Jan, Anxiety and depression F41.8 [facility] [address] [place] [address] [id number] [id number] Dec, [facility] [id number] [place] [address] 10958- 6632 Nov, [place] [id number] [place] [address] 70174- 0828 Jun, Normal in multigravida Z34.80 and First trimester Z33.1 [place] [address] [address] Jun, 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 and Ota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 ear H92.01 [facility] [id number] [place] [address] 52532- 4199 May, [facility] [id number] [place] [address] 25156 -0621 May, Late menses N91.0 and Acute suppurative otitis media of left ear without spontaneous rupture of tympanic membrane, recurrence not specified H66.002 [facility] [id number] [place] [address] 03213- 3606 May, [facility] [id number] [place] [address] 60411- 1469 Apr, [facility] [id number] [place] [address] 48142 -4264 Apr, Vaginal discharge N89.8 and Vaginal yeast infection B37.3 [place] [id number] [place] [address] 03879- 8916 Mar, [facility] [address] [address] Feb, [facility] [address] [place] [address] 20593- 2145 Feb, [facility] [address] [address] 299[address] 15 Feb, 2016 Abnormal cholesterol test E78.9 [facility] [address] [place] [address] 51453- 7337 14 Feb, 2016 History of UTI Z87.440 ; Mixed hyperlipidemia E78.2 and Abnormal thyroid blood test R94.6 [facility] [id number] [id number] Jan, [facility] [address] [address] 6[address] Jan, [facility] [id number] [place] [address] 38524- 8890 Jan, Chest pain, unspecified type R07.9 ; Palpitations R00.2 ; Hyperlipidemia, unspecified hyperlipidemia type E78.5 and Dyspnea, unspecified type R06.00 [facility] [address] [address] 7[address] Jan, [facility] [address] [address] 7[address] Dec, [facility] [address] [address] Dec, Upper respiratory tract infection, unspecified type J06.9 [facility] [id number] [address] 5925 Dec, Major depressive disorder, single episode, unspecified F32.9 and Panic attacks F41.0 [facility] [id number] [address] Nov, History of anemia Z86.2 ; Abnormal thyroid blood test R94.6 ; Mixed hyperlipidemia E78.2 ; Migraine headache G43.909 and Acute maxillary sinusitis, recurrence not specified J01.00 [place] [id number] [place] [address] 22752- 5630 Nov, 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 and Chondromalacia patellae of right knee M22.41 [place] [address] 9[address]25- 2323 Nov, Abnormal thyroid blood test R94.6 and Abnormal cholesterol test E78.9 [place] [address] 89145- 3337 October, History of palpitations Z87.898 ; Pain in left knee M25.562 and Pain in right knee M25.561 [place] [address] 13206- 9459 Sep, Pelvic pain in female 625.9 [place] [address] 25380- 1908 Sep, Pelvic pain R10.2 ; Galactorrhea in female N64.3 ; Knee pain , left M25.562 and Knee pain, right M25.561 [facility] [address] 0[address]58 [address] Aug, Cough R05 and Laceration of thumb, left S61.012A [place] [address] 09101- 9616 Aug, Cough R05 ; History of UTI Z87.440 and Contraception management Z30.9 [place] [address] 08125- 4067 Aug, History of UTI Z87.440 and Irregular menses N92.6 [place] [id number] [place] [address] 25345- 8601 18 Jul, 2015 Leukopenia D72.819 and Neutropenia D70.9 [place] [address] 08601- 8476 18 Jul, 2015 Leukopenia D72.819 and Neutropenia D70.9 [place] [address] 95152- 9477 17 Jul, 2015 Migraine headache G43.909 ; Heart burn R12 and History of long-term use of multiple prescription drugs Z92.29 [facility] [address] 9[address]39 [address]128 15 Jul, 2015 Vaginal discharge N89.8 ; High risk sexual behavior Z72.51 ; Unprotected sex Z72.51 ; Acute upper respiratory infection, unspecified J06.9 and Other viral agents as the cause of diseases classified elsewhere B97.[address] [address]53- 4461 04 Jul, 2015 Sore throat J02.9 ; Sinusitis J32.9 and Fever R50.9 [place] [address] 11120- 6309 27 Jun, 2015 Migraine headache G43.909 and Heart burn R12 [address] 72412- 8745 14 Jun, 2015 [place] [address] 62495- 3454 07 Jun, 2015 [place] [address] [address]- 1987 06 Jun, 2015 Encounter for Depo-Provera contraception Z30.42 ; Evaluation regarding contraception options Z30.09 ; 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 [address] [place] [address], [place] [address] May, Insect bite of shoulder S40.269A [facility] [id number] [place] [address] 73307 -0725 May, Sore throat J02.9 [facility] [id number] [place] [address] 92623- 3156 24 Feb, 2015 Pelvic pain in female 625.9 and Menorrhagia 626.2 [facility] [address] 23571- 5735 Dec, Diarrhea 787.91 [facility] [address] 394505- 7594 Dec, Pelvic pain in female 625.9 and Ganglion cyst of wrist 727.41 [facility] [id number] [place] [address] 19023- 4366 Nov, Eczema 692.9 [facility] [id number] [place] [address] 28189- 1236 Nov, [facility] [id number] [place] [address] 45275- 0215 Sep, [facility] [id number] [place] [address] 07054- 1549 Sep, [facility] [id number] [place] [address] 93140- 7970 Jul, [facility] [id number] [place] [address] 28926- 9121 Jul, [facility] [id number] [place] [address] 12821- 6112 Jun, [facility] [id number] [place] [address] [id number]- 3888 Jun, [facility] [id number] [place] [address] 73973- 1298 Jun, [facility] [address] [facility] [id number] [place] [address]- 4788 Jun, [facility] [place] [facility] [address] [id number] [place] [address]- 5351 Jun, [facility] [place] [facility] [address] [id number] [place] [address]- 4281 Jun, [facility] [place] [facility] [address] [id number] [place] [address]- 4196 Jun, [facility] [place] [facility] [address] [id number] [place] [address]- 4941 Jun, [facility] [place] [facility] [address] [id number] [place] [address]- 4555 May, [facility] [place] [facility] [address] [id number] [place] [address]- 4976 May, [facility] [place] [facility] [address] [id number] [place] [address]- 1821 May, [facility] [place] [facility] [address] [id number] [place] [address]- 4798 May, [facility] [place] [facility] [address] [id number] [place] [address]- 8998 Apr, [facility] [place] [facility] [address] [id number] [place] [address]- 4317 Apr, [facility] [place] [facility] [address] [id number] [place] [address]- 0887 Apr, [facility] [place] [facility] [address] [id number] [place] [address]- 1295 Apr, [facility] [place] [facility] [address] [id number] [place] [address]- 9654 Apr, [facility] [place] [facility] [address] [id number] [place] [address]61 Apr, [facility] [place] [facility] [address] [id number] [place] [address]- 1699 Feb, [facility] [place] [facility] [address] [id number] [place] [address] 2543 29 Sep, 2013 [facility] [place] [facility] [address] [id number] [place] [address] 2548 26 Feb, 2013 [facility] [place] [facility] [address] [id number] [place] [address] 2544 26 Feb, 2013 [facility] [place] [facility] [address] [id number] [place] [address] 2545 26 Feb, 2013 [facility] [place] [facility] [address] [id number] [place] [address]- 5404 26 Feb, 2013 [facility] [place] [facility] [address] [id number] [place] [address]- 5231 25 Feb, 2013 [facility] [place] [facility] [address] [id number] [place] [address]- 7827 25 Feb, 2013 [facility] [place] [facility] [address] [id number] [place] [address]- 2906 23 Feb, 2013 [facility] [place] [facility] [address] [id number] [place] [address]- 0025 23 Feb, 2013 [facility] [place] [facility] [address] [id number] [place] [address]- 4382 22 Feb, 2013 [facility] [place] [facility] [address] [id number] [place] [address] 2540 22 Feb, 2013 [facility] [place] [facility] [address] [id number] [address] 254 19 Feb, 2013 [facility] [place] [facility] [address] [id number] [place] [address] 2546 19 Feb, 2013 [facility] [place] [facility] [address] [id number] [place] [address]- 2547 12 Feb, 2013 [facility] [place] [facility] [address] [id number] [place] [address]- 2545 10 Feb, 2013 [facility] [place] [facility] [address] [id number] [place] [address]- 2449 Feb, [facility] [place] [facility] [address] [id number] [place] [address]- 3404 Feb, [facility] [place] [facility] [address] [id number] [place] [address]- 2548 Feb, [facility] [place] [facility] [address] [id number] [place] [address]- 0807 Feb, [facility] [place] [facility] [address] [id number] [place] [address]- 7739 Jan, [facility] [place] [facility] [address] [id number] [place] [address]- 0742 Jan, [facility] [place] [facility] [address] [id number] [place] [address]- 2474 Jan, [facility] [place] [facility] [address] [id number] [place] [address]- 1283 Jan, [facility] [place] [facility] [address] [id number] [place] [address]- 9829 Jan, [facility] [place] [facility] [address] [id number] [place] [address]- 5816 Jan, [facility] [place] [facility] [address] [id number] [place] [address]- 1918 Jan, [facility] [place] [facility] [address] [id number] [place] [address]- 9659 Jan, [facility] [place] [facility] [address] [id number] [place] [address]- 6965 Dec, [facility] [place] [facility] [address] [id number] [place] [address]- 0866 Dec, [facility] [place] [facility] [address] [id number] [place] [address]- 9464 Dec, [facility] [place] [facility] [address] [id number] [place] [address]- 4266 Dec, [facility] [place] [facility] [address] [id number] [place] [address]- 4819 Dec, [facility] [place] [facility] [address] [id number] [place] [address]- 3621 Dec, [facility] [place] [facility] [address] [id number] [place] [address]- 5350 Dec, [facility] [place] [facility] [address] [id number] [place] [address]- 1341 Dec, [facility] [place] [facility] [address] [id number] [place] [address]- 7778 Dec, [facility] [place] [facility] [address] [id number] [place] [address]- 3186 Dec, [facility] [place] [facility] [address] [id number] [place] [address]- 0998 Dec, [facility] [place] [facility] [address] [id number] [place] [address]- 1446 Dec, [facility] [place] [facility] [address] [id number] [place] [address]- 9426 Nov, [facility] [place] [facility] [address] [id number] [place] [address]- 1195 Nov, [facility] [place] [facility] [address] [id number] [place] [address]- 0115 Nov, [facility] [place] [facility] [address] [id number] [place] [address]- 1611 Nov, [facility] [place] [facility] [address] [id number] [place] [address]- 4811 Nov, [facility] [place] [facility] [address] [id number] [place] [address]- 7069 Nov, [facility] [place] [facility] [address] [id number] [place] [address]- 7828 16 Nov, 2013 [facility] [place] [facility] [address] [id number] [place] [address]- 8195 Nov, [facility] [place] [facility] [address] [id number] [place] [address]- 7662 Nov, [facility] [place] [facility] [address] [id number] [place] [address]- 3825 Nov, [facility] [place] [facility] [address] [id number] [place] [address]- 4806 October, [facility] [place] [facility] [address] [id number] [place] [address]- 1953 October, [facility] [place] [facility] [address] [id number] [place] [address]- 8204 October, [facility] [place] [facility] [address] [id number] [place] [address]- 2350 October, [facility] [place] [facility] [address] [id number] [place] [address]- 3880 October, [facility] [place] [facility] [address] [id number] [place] [address]- 6718 October, [facility] [place] [facility] [address] [id number] [place] [address]- 0933 Sep, [facility] [place] [facility] [address] [id number] [place] [address]- 4653 Sep, [facility] [place] [facility] [address] [id number] [place] [address]- 6831 Sep, [facility] [place] [facility] [address] [id number] [place] [address]- 0113 Sep, [facility] [place] [facility] [address] [id number] [place] [address]- 4152 Sep, [facility] [place] [facility] [address] [id number] [place] [address]- 9992 Sep, [facility] [place] [facility] [address] [id number] [place] [address]- 0037 Aug, [facility] [place] [facility] [address] [address]- 7780 Aug, [facility] [address] [address]- 7363 Aug, [facility] [address] [address]- 7092 Aug, [facility] [id number] [address]- 4982 Aug, [facility] [address] [address]- 3402 Jun, [facility] [address] [place] [address] 44720- 8960 Jun, [facility] [address] [address]- 7809 Jun, [facility] [address] [address]- 8515 Jun, [facility] [address] [address]- 9582 Jun, [facility] [id number] [address] Jun, [facility] [id number] [address] Jun, [facility] [id number] [address] Mar, [facility] [id number] [address] Mar, IMMUNIZATIONS No Known Immunizations SOCIAL HISTORY Never Assessed REASON FOR VISIT New rx request PLAN OF CARE VITAL SIGNS MEDICATIONS Medication Instructions Dosage Frequency Start Date End Date Duration Status Anusol-HC 25 MG Rectal every 12 hours, PRN 1 suppository Feb, Active RESULTS No Results PROCEDURES No [...]
--- OUTSIDE RECORDS SUMMARY | 2018-01-30 17:30 | XMS REPORT | Continuity of Care Document ---
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 reflex to culture - 01/25/17 21:30 Urine color determination YELLOW NRG Urine clarity determination SLIGHTLY CLOUDY NRG Urine pH measurement by test strip 5 5-9 Specific gravity of urine by test strip 1.025 1.016- 1.022 Urine protein assay by test strip, semi-quantitative 2+ NEGATIVE Urine glucose detection by automated test strip 1+ NEGATIVE Erythrocytes detection in urine sediment by light microscopy 1+ NEGATIVE Urine ketones detection by automated test strip 2+ NEGATIVE Urine nitrite detection by test strip NEGATIVE NEGATIVE Urine total bilirubin detection by test strip 1+ NEGATIVE Urine urobilinogen measurement by automated test strip (mass/volume) NORMAL NORMAL Urine leukocyte esterase detection by dipstick 2+ NEGATIVE Automated urine sediment erythrocyte count by microscopy (number/high power field) [HPF] NRG Automated urine sediment leukocyte count by microscopy (number/high power field ) [HPF] NRG Bacteria detection in urine sediment by light microscopy LARGE NRG Squamous epithelial cells detection in urine sediment by light microscopy >50 NRG Crystals detection in urine sediment by light microscopy NONE NRG Casts detection in urine sediment by light microscopy NONE NRG Mucus detection in urine sediment by light microscopy LARGE NRG Complete urinalysis with reflex to culture YES NRG Bacterial urine culture - 01/25/17 21:30 Bacterial urine culture [id number] NRG COLONY COUNT >100,000/ML NRG FTX;REPORTABLE PLUS, NRG FREE TEXT ENTRY 2 MIXED CARLOS ALBERTO <10,000/ML NRG Bacterial susceptibility panel - 01/25/17 21:30 Gentamicin susceptibility test by minimum inhibitory concentration 4 NRG Trimethoprim/sulfamethoxazole susceptibility test by minimum inhibitoryconcentration <= NRG Tobramycin susceptibility test by minimum inhibitory concentration 4 NRG Ceftriaxone susceptibility test by minimum inhibitory concentration <= NRG Piperacillin/tazobactam susceptibility test by minimum inhibitory concentration <= NRG Ciprofloxacin susceptibility test by minimum inhibitory concentration 1 NRG Meropenem susceptibility test by minimum inhibitory concentration < = NRG Nitrofurantoin susceptibility test by minimum inhibitory concentration 128 NRG Aztreonam susceptibility test by minimum inhibitory concentration > = NRG Complete urinalysis with reflex to culture - 02/07/17 00:50 Urine color determination YELLOW NRG Urine clarity determination VERY CLOUDY NRG Urine pH measurement by test strip 6 5-9 Specific gravity of urine by test strip 1.025 1.016- 1.022 Urine protein assay by test strip, semi-quantitative 2+ NEGATIVE Urine glucose detection by automated test strip 4+ NEGATIVE Erythrocytes detection in urine sediment by light microscopy 1+ NEGATIVE Urine ketones detection by automated test strip 2+ NEGATIVE Urine nitrite detection by test strip NEGATIVE NEGATIVE Urine total bilirubin detection by test strip NEGATIVE NEGATIVE Urine urobilinogen measurement by automated test strip (mass/volume) NORMAL NORMAL Urine leukocyte esterase detection by dipstick 1+ NEGATIVE Automated urine sediment erythrocyte count by microscopy (number/high power field) RARE NRG Automated urine sediment leukocyte count by microscopy (number/high power field ) [HPF] NRG Bacteria detection in urine sediment by light microscopy MODERATE NRG Squamous epithelial cells detection in urine sediment by light microscopy >50 NRG Crystals detection in urine sediment by light microscopy NONE NRG Casts detection in urine sediment by light microscopy NONE NRG Mucus detection in urine sediment by light microscopy SMALL NRG Complete urinalysis with reflex to culture YES NRG Bacterial urine culture - 02/07/17 00:50 Bacterial urine culture [id number] NRG COLONY COUNT >100,000/ML NRG FTX;REPORTABLE PLUS, NRG FREE TEXT ENTRY 2 MIXED GRAM POSITIVES <10,000/ML NRG Bacterial susceptibility panel - 02/07/17 00:50 Gentamicin susceptibility test by minimum inhibitory concentration < = NRG Trimethoprim/sulfamethoxazole susceptibility test by minimum inhibitoryconcentration <= NRG Ampicillin susceptibility test by minimum inhibitory concentration > = NRG Tobramycin susceptibility test by minimum inhibitory concentration < = NRG Cefazolin susceptibility test by minimum inhibitory concentration < = NRG Ceftriaxone susceptibility test by minimum inhibitory concentration <= NRG Ampicillin/sulbactam susceptibility test by minimum inhibitory concentration 4 NRG Piperacillin/tazobactam susceptibility test by minimum inhibitory concentration <= NRG Ciprofloxacin susceptibility test by minimum inhibitory concentration <= NRG Meropenem susceptibility test by minimum inhibitory concentration < = NRG Nitrofurantoin susceptibility test by minimum inhibitory concentration 32 NRG Aztreonam susceptibility test by minimum inhibitory concentration < = NRG Extended spectrum beta lactamase (ESBL) producing bacteria susceptibility test by minimum inhibitory concentration - NRG Complete blood count (CBC) with automated white blood cell (WBC) differential - 02/10/17 07:25 Blood leukocytes automated count (number/volume) 8.7 10*3/uL 4.3-11.0 Blood erythrocytes automated count (number/volume) 4.04 10*6/uL 4.35-5.85 Venous blood hemoglobin measurement (mass/volume) 12.1 g/dL 11.5-16.0 Blood hematocrit (volume fraction) 36 % 35-52 Automated erythrocyte mean corpuscular volume 88 [foz_us] 80-99 Automated erythrocyte mean corpuscular hemoglobin (mass per erythrocyte) 30 pg 25-34 Automated erythrocyte mean corpuscular hemoglobin concentration measurement ( mass/volume) 34 g/dL 32-36 Automated erythrocyte distribution width ratio 14.9 % 10.0-14.5 Automated blood platelet count (count/volume) 151 10*3/uL 130-400 Automated blood platelet mean volume measurement 11.3 [foz_us] 7.4-10.4 Automated blood neutrophils/100 leukocytes 68 % 42-75 Automated blood lymphocytes/100 leukocytes 23 % 12-44 Blood monocytes/100 leukocytes 7 % 0-12 Automated blood eosinophils/100 leukocytes 1 % 0-10 Automated blood basophils/100 leukocytes 0 % 0-10 Blood neutrophils automated count (number/volume) 5.9 10*3 1.8-7.8 Blood lymphocytes automated count (number/volume) 2.0 10*3 1.0-4.0 Blood monocytes automated count (number/volume) 0.6 10*3 0.0-1.0 Automated eosinophil count 0.1 10*3/uL 0.0-0.3 Automated blood basophil count (count/volume) 0.0 10*3/uL 0.0-0.1 Blood type T Indirect antibody screen panel - 02/10/17 07:25 ABO+Rh group AP NRG Transfusion band number [id number] NRG Blood group antibody screen NEGATIVE NRG Complete blood count (CBC) with automated white blood cell (WBC) differential - 02/11/17 06:05 Blood leukocytes automated count (number/volume) 9.3 10*3/uL 4.3-11.0 Blood erythrocytes automated count (number/volume) 3.80 10*6/uL 4.35-5.85 Venous blood hemoglobin measurement (mass/volume) 11.3 g/dL 11.5-16.0 Blood hematocrit (volume fraction) 34 % 35-52 Automated erythrocyte mean corpuscular volume 89 [foz_us] 80-99 Automated erythrocyte mean corpuscular hemoglobin (mass per erythrocyte) 30 pg 25-34 Automated erythrocyte mean corpuscular hemoglobin concentration measurement ( mass/volume) 33 g/dL 32-36 Automated erythrocyte distribution width ratio 14.8 % 10.0-14.5 Automated blood platelet count (count/volume) 140 10*3/uL 130-400 Automated blood platelet mean volume measurement 11.3 [foz_us] 7.4-10.4 Automated blood neutrophils/100 leukocytes 76 % 42-75 Automated blood lymphocytes/100 leukocytes 17 % 12-44 Blood monocytes/100 leukocytes 7 % 0-12 Automated blood eosinophils/100 leukocytes 1 % 0-10 Automated blood basophils/100 leukocytes 0 % 0-10 Blood neutrophils automated count (number/volume) 7.1 10*3 1.8-7.8 Blood lymphocytes automated count (number/volume) 1.5 10*3 1.0-4.0 Blood monocytes automated count (number/volume) 0.7 10*3 0.0-1.0 Automated eosinophil count 0.1 10*3/uL 0.0-0.3 Automated blood basophil count (count/volume) 0.0 10*3/uL 0.0-0.1 Encounters ACCT No. Visit Date/Time Discharge Status Pt. Type Provider Facility Loc./Unit Complaint [id number] 07/04/2014 13:31:00 07/04/2014 23:59:59 CLS Outpatient CRISTA ROSALES APRN [id number] 05/17/2014 13:50:00 05/17/2014 23:59:59 CLS Outpatient CRISTA ROSALES APRN [id number] 04/26/2014 14:47:00 04/26/2014 23:59:59 CLS Outpatient SLADESARAH Raymond APRN [id number] 03/17/2014 09:57:00 03/17/2014 23:59:59 CLS Outpatient TORRES DOESTEFANIA [id number] 03/13/2014 15:53:00 03/13/2014 23:59:59 CLS Outpatient TORRES DOESTEFANIA [id number] 02/22/2014 10:12:00 02/22/2014 23:59:59 CLS Outpatient TORRES DOESTEFANIA [id number] 02/06/2014 13:49:00 02/06/2014 23:59:59 CLS Outpatient TORRES DOESTEFANIA [id number] 01/23/2014 15:13:00 01/23/2014 23:59:59 CLS Outpatient TORRES DOESTEFANIA [id number] 01/09/2014 16:34:00 01/09/2014 23:59:59 CLS Outpatient TORRES DOESTEFANIA [id number] 12/13/2013 14:10:00 12/13/2013 23:59:59 CLS Outpatient TORRES DOESTEFANIA [id number] 12/13/2013 14:10:00 12/13/2013 23:59:59 CLS Outpatient TORRES DOESTEFANIA [id number] 11/15/2013 13:57:00 11/15/2013 23:59:59 CLS Outpatient TORRES DOESTEFANIA [id number] 11/15/2013 13:57:00 11/15/2013 23:59:59 CLS Outpatient TORRES DOESTEFANIA [id number] 10/12/2013 14:55:00 10/12/2013 23:59:59 CLS Outpatient SLADESARAH Raymond APRN [id number] 10/12/2013 14:55:00 10/12/2013 23:59:59 CLS Outpatient SARAH JUNE APRN [id number] 09/15/2013 14:50:00 09/15/2013 23:59:59 CLS Outpatient SHANEL JUNE APRNIDI Angelica [id number] 07/12/2013 08:51:00 07/12/2013 23:59:59 CLS Outpatient SLADESARAH KENDRICK APRN [id number] 04/09/2013 13:20:00 04/09/2013 23:59:59 CLS Outpatient SADA POND APRN [id number] 07/14/2016 13:05:00 Document Registration [id number] 07/10/2016 18:06:00 Document Registration [id number] 03/06/2016 08:58:00 Document Registration [id number] 07/11/2016 18:06:00 Document Registration [id number] 10/05/2017 13:02:00 10/05/2017 23:59:59 CLS 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 R10.2 PELVIC PAIN [id number] 02/10/2017 06:57:00 02/12/2017 11:30:00 DIS Inpatient KIARA MAO MD [facility] LDRP INDUCTION [id number] 02/09/2017 13:41:00 02/09/2017 23:59:59 CLS Outpatient KIARA MAO MD [facility] RAD POSITION [id number] 02/07/2017 00:45:00 02/07/2017 02:33:00 DIS Outpatient PEPE MEEK MD [facility] WSo CONTRACTIONS [id number] 01/25/2017 21:03:00 01/25/2017 22:24:00 DIS Outpatient ANOOP HWANG MD [facility] WSo CONTRACTIONS [id number] 12/29/2016 09:49:00 12/29/2016 23:59:59 CLS Outpatient KIARA MAO MD [facility] RAD FUNDAL HEIGHT INCREASE [id number] 12/07/2016 16:52:00 12/07/2016 18:10:00 DIS Outpatient ANOOP HWANG MD [facility] WSo ABD PAIN/PRESSURE [id number] 10/09/2016 13:28:00 10/09/2016 23:59:59 CLS Outpatient KIARA MAO MD [facility] RAD EVAL SPINE F/U [id number] 09/18/2016 13:31:00 09/18/2016 23:59:59 CLS Outpatient KIARA MAO MD [facility] RAD SURVEY [id number] 07/17/2016 10:22:00 07/17/2016 23:59:59 CLS Outpatient KIARA MAO MD [facility] RAD NORMAL IN MULTIGRAVIDA [id number] 07/13/2016 23:34:00 07/14/2016 00:22:00 DIS Emergency ISIDRO ESQUEDA DO [facility] ER FAICAL PAIN EAR ACHE [id number] 06/01/2016 19:44:00 06/01/2016 20:02:00 DIS Emergency LAKE LANDA APRN [facility] ER EAR ACHE [id number] 05/19/2016 10:30:00 05/19/2016 23:59:59 CLS Preadmit CARISSA CARRERO MD [facility] CARD CHEST PAIN [id number] 02/18/2016 10:30:00 05/18/2016 00:01:00 DIS Outpatient CARISSA CARRERO MD [facility] CARD CHEST PAIN [id number] 02/11/2016 22:18:00 02/11/2016 23:41:00 DIS Emergency SHANNON JASSO MD [facility] ER DECREASE IN URINATION [id number] 01/14/2016 13:37:00 01/14/2016 14:23:00 DIS Emergency AUDREY DE LOS SANTOS [facility] ER COUGH/CONGESTION [id number] 11/28/2015 15:02:00 11/28/2015 23:59:59 CLS Outpatient DANICA HWANG DO [facility] RAD AMENORRHEA [id number] 10/16/2015 06:11:00 10/16/2015 08:40:00 DIS Emergency SHANNON JASSO MD [facility] ER NUMB ON HEAD,SHAKES ALL OVER,KNEE PAIN [id number] 09/19/2015 06:53:00 09/19/2015 09:35:00 DIS Emergency KYLE ARCE MD [facility] ER LOWER ABD PAIN [id number] 09/04/2015 20:40:00 09/04/2015 21:08:00 DIS Emergency LAKE LANDA INFORMATION ASSISTANT [facility] ER R HAND THUMB LAC [id number] 08/09/2015 11:58:00 08/09/2015 14:32:00 DIS Emergency LAKE LANDA INFORMATION ASSISTANT [facility] ER SORE THROAT [id number] 04/06/2015 11:54:00 04/06/2015 23:59:59 CLS Outpatient 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 [id number] 03/12/2015 18:20:00 03/12/2015 23:23:00 DIS Emergency AUDREY DE LOS SANTOS [facility] ER [id number] 02/08/2015 08:08:00 02/08/2015 14:30:00 DIS Outpatient MCKEON DONATHALIETT D [facility] [id number] 02/01/2015 14:28:00 02/01/2015 23:59:59 CLS Outpatient MCKEON DONATHALIETT D [facility] PREOP [id number] 07/19/2014 08:41:00 07/19/2014 23:59:59 CLS Outpatient 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
[2018-01-30] MEDS ORDERED: BCP (17:39)
--- NOTE | 2018-01-30 17:55 | ED EENT ---
History of Present Illness General Chief Complaint: Cough/Cold/Flu Symptoms Stated Complaint: SORE THROAT, BODY ACHE, FEVER Nursing Triage Note: C/O FEVER COUGH AND SORETHROAT. Source: patient Exam Limitations: no limitations History of Present Illness Date Seen by Provider: Jan 30, 2018 Time Seen by Provider: 17:54 Initial Comments To ER with 3-4 days of sore throat, body aches, low-grade fevers. Timing/Duration: abrupt Severity: moderate Location: throat Associated Symptoms: sore throat Allergies and Home Medications Allergies Coded Allergies: erythromycin base (Unverified Allergy, Unknown, reports that her mother said to say that she was allergic to, 01/14/16) Home Medications Acetaminophen 325 Mg Tablet, 1,000 MG PO PRN PRN for PAIN-MILD, (Reported) Patient Home Medication List Home Medication List Reviewed: Yes Review of Systems Constitutional: see HPI Eyes: No Symptoms Reported Ears: No Symptoms Reported Nose: no symptoms reported Mouth: no symptoms reported Throat: see HPI, pain Respiratory: no symptoms reported Cardiovascular: no symptoms reported Past Elirxhb-Lxuiww-Obejrp Hx Patient Social History Alcohol Use: Denies Use Recreational Drug Use: No Smoking Status: Former Smoker Type Used: Cigarettes Former Smoker, Quit: Mar 22, 2016 Recent Foreign Travel: No Contact w/Someone Who Travel: No Recent Infectious Disease Expo: No Recent Hopitalizations: No Immunizations Up To Date Tetanus Booster (TDap): Less than 5yrs PED Vaccines UTD: Yes Seasonal Allergies Seasonal Allergies: No Past Medical History Surgeries: Yes (appendix, cyst on wrist ) Appendectomy, Orthopedic Respiratory: No Cardiac: No High Cholesterol Neurological: No Headaches /Migraines Reproductive Disorders: Yes Female Reproductive Disorders: Menstrual Problems Genitourinary: No Gastrointestinal: Yes Gastroesophageal Reflux Musculoskeletal: No Endocrine: No HEENT: No Cancer: No Psychosocial: No Integumentary: No Blood Disorders: No Adverse Reaction/Blood Tranf: No Family Medical History Patient reports no known family medical history. No Pertinent Family Hx Physical Exam Vital Signs Vital Signs - First Documented 01/30/18 17:44 Temp 101.0 Pulse 100 Resp 18 B/P (MAP) 146/93 (110) Pulse Ox 99 O2 Delivery Room Air Height, Weight, BMI Height: 5'5.00" Weight: 250lbs. 6.0oz. 113.860665hu; 48.2 BMI Method:Stated General Appearance: WD/WN, no apparent distress Eyes: bilateral eye normal inspection, bilateral eye PERRL, bilateral eye EOMI Ears: bilateral ear auricle normal, bilateral ear canal normal, bilateral ear TM normal Mouth/Throat: tonsillar exudate, tonsillar swelling Neck: non-tender, full range of motion, lymphadenopathy (R), lymphadenopathy (L ) Cardiovascular: regular rate, rhythm, no murmur Respiratory: normal breath sounds, no respiratory distress, no accessory muscle use Gastrointestinal: normal bowel sounds, soft Neurologic/Psychiatric: alert, normal mood/affect, oriented x 3 Skin: normal color, warm/dry Progress/Results/Core Measures Results/Orders Lab Results Laboratory Tests Test 01/30/18 17:50 Range/Units My Orders Orders - LAKE LANDA APRN Chest Pa/Lat (2 View) (01/30/18 17:44) Rapid Strep A Screen (01/30/18 17:44) Dexamethasone Injection (Decadron Inject (01/30/18 18:00) Amoxicillin/Clavulanate Tablet (Augmenti (01/30/18 18:00) Vital Signs/I&O 01/30/18 17:44 Temp 101.0 Pulse 100 Resp 18 B/P (MAP) 146/93 (110) Pulse Ox 99 O2 Delivery Room Air Blood Pressure Mean: 110 Departure Impression Primary Impression: Pharyngitis Disposition: 01 HOME, SELF-CARE Condition: Stable Departure-Patient Inst. Decision time for Depature: 17:58 Referrals: KIARA MAO MD (PCP/Family) Primary Care Physician Patient Instructions: Sore Throat in Adults Add. Discharge Instructions: 1. Tylenol and Motrin for pain and/or fever 2. antibiotics as directed 2. See her doctor next week All discharge instructions reviewed with patient and/or family. Voiced understanding. Scripts Amoxicillin (Amoxicillin) 500 Mg Capsule 500 MG PO TID, #21 CAP Prov: LAKE LANDA APRN 01/30/18 LAKE LANDA APRN Jan 30, 2018 17:55
[2018-01-30] MEDS ORDERED: DEXAMETHASONE 10 MG/ML (DECADRON) 1 ML VIAL IM ONE (18:00)
[2018-01-30] MEDS ORDERED: AUGMENTIN 875 MG TAB (AMOXICILLIN/CLAVULANATE) PO SCH (18:00)
[2018-01-30] MEDS ORDERED: AMOX500C2 PO (18:00)
[2018-01-30 18:08] VITALS: BP 146/93
== END 2018-01-30 18:08 | disposition home or self-care (01) ==
LOC: EDUNIT# 17:18 → ER 17:20
DX: J02.9 Acute pharyngitis, unspecified (principal); E78.00 Pure hypercholesterolemia, unspecified; G43.909 Migraine, unspecified, not intractable, without status migrainosus; K21.9 Gastro-esophageal reflux disease without esophagitis; Z88.0 Allergy status to penicillin; Z87.891 Personal history of nicotine dependence; Z90.89 Acquired absence of other organs
CPT/HCPCS: 87430; 96372; 99284

== ENCOUNTER → 2018-02-24 | Outpatient (CLI) | payer MEDICAID ==
[~2018-02-24] MED LIST changes: +BCP; -BENZ-13 PO; +BENZ100C18 PO; +PANT40TA2 PO
== END ==
LOC: CARD 10:24
PROVIDERS: ATTEND Physician Assistant
DX: R42 Dizziness and giddiness (principal); R06.00 Dyspnea, unspecified; E78.5 Hyperlipidemia, unspecified; R00.2 Palpitations
CPT/HCPCS: 93017

== ENCOUNTER 2018-03-08 09:15 | Outpatient (CLI) | payer MEDICAID ==
[~2018-03-08] VITALS: Ht 165.1 cm; Wt 113.4 kg
[~2018-03-08 09:15] MED LIST changes: -PANT40TA2 PO
[2018-03-09] MEDS ORDERED: PANT40TA2 PO (10:47)
== END 2018-03-08 09:19 | disposition home or self-care (01) ==
LOC: PREOP 09:15
PROVIDERS: ATTEND Surgery
DX: Z01.818 Encounter for other preprocedural examination (principal)

== ENCOUNTER 2018-03-09 08:56 | Day surgery (SDC) | payer MEDICAID ==
[~2018-03-09] VITALS: Ht 165.1 cm; Wt 113.4 kg
--- OUTSIDE RECORDS SUMMARY | 2018-03-09 09:09 | XMS REPORT | Continuity of Care Document ---
Author Author [facility] Address Unknown Phone Unavailable Allergies Active Description Code Type Severity Reaction Onset Reported/Identified Relationship to Patient Clinical Status Yes No Known Drug Allergies [id number] Drug Allergy Unknown N/A 03/19/2014 Yes erythromycin base [id number] Drug Allergy Unknown reports that he 2015 Yes adhesive tape [id number] Drug Allergy Unknown HIVES 03/08/2018 Medications There is no data. Problems Date Dx Coded Attending Type Code Diagnosis Diagnosed By 04/09/2013 SADA POND APRN 461.9 SINUSITIS ACUTE 04/09/2013 SLADE SECRETARY BOOKKEEPER, SARAH A 461.9 SINUSITIS ACUTE 04/09/2013 SLADE SECRETARY BOOKKEEPER, SARAH A 461.9 SINUSITIS ACUTE 04/09/2013 SLADE SECRETARY BOOKKEEPER, SARAH A 461.9 SINUSITIS ACUTE 04/09/2013 SLADE SECRETARY BOOKKEEPER, SARAH A 461.9 SINUSITIS ACUTE 04/09/2013 TORRES [...] ESTEFANIA K 461.9 SINUSITIS ACUTE 04/09/2013 SLADE SECRETARY BOOKKEEPER, SARAH A 461.9 SINUSITIS ACUTE 04/09/2013 MADL SECRETARY BOOKKEEPER, CRISTA L 461.9 SINUSITIS ACUTE 04/09/2013 CONNIE GAUTAM, CRISTA L 461.9 SINUSITIS ACUTE 07/12/2013 SLADE GAUTAM, SARAH A V72.41 TEST NEGATIVE RESULT 07/12/2013 SLADE MONTESN, SARAH A V74.5 STD SCREEN 07/12/2013 SLADE MONTESN, SARAH A V76.2 CERVICAL CANCER SCREENING (PAP SMEAR) 07/12/2013 SLADE MONTESN, SARAH A V72.41 TEST NEGATIVE RESULT 07/12/2013 SLADE SECRETARY BOOKKEEPER, SARAH A V74.5 STD SCREEN 07/12/2013 SLADE [...] CERVICAL CANCER SCREENING (PAP SMEAR) 07/12/2013 SLADE SECRETARY BOOKKEEPER, SARAH A V72.41 TEST NEGATIVE RESULT 07/12/2013 SLADE SECRETARY BOOKKEEPER, SARAH A V74.5 STD SCREEN 07/12/2013 SLADE SECRETARY BOOKKEEPER, SARAH A V76.2 CERVICAL CANCER SCREENING (PAP SMEAR) 07/12/2013 MADL SECRETARY BOOKKEEPER, CRISTA L V72.41 TEST NEGATIVE RESULT 07/12/2013 MADL SECRETARY BOOKKEEPER, CRISTA L V74.5 STD SCREEN 07/12/2013 MADL SECRETARY BOOKKEEPER, CRISTA L V76.2 CERVICAL CANCER SCREENING (PAP SMEAR) 07/12/2013 JEANETTE ROSALES APRNWNYA L V72.41 TEST NEGATIVE RESULT 07/12/2013 SAE ROSALES APRNA L V74.5 STD SCREEN 07/12/2013 JEANETTE ROSALES APRNWNYA L V76.2 CERVICAL CANCER SCREENING (PAP SMEAR) 09/12/2013 SLADE GAUTAM SARAH A V72.42 TEST POSITIVE RESULT 09/12/2013 SLADE GAUTAM, SARAH A V72.42 TEST POSITIVE RESULT 09/12/2013 SLADE GAUTAM, SARAH A V72.42 TEST POSITIVE RESULT 09/12/2013 TORRES [...] SARAH A V22.1 , NORMAL OTHER 09/15/2013 SLAED GAUTAM, SARAH A V22.1 , NORMAL OTHER [...] K V22.1 , NORMAL OTHER 09/15/2013 SLADE SECRETARY BOOKKEEPER, SARAH A V22.1 , NORMAL OTHER 09/15/2013 MADL SECRETARY BOOKKEEPER, CRISTA L V22.1 , NORMAL OTHER 09/15/2013 MADL SECRETARY BOOKKEEPER, CRISTA L V22.1 , NORMAL OTHER 11/15/2013 [...] ESTEFANIA K V77.1 DIABETES SCREENING 11/15/2013 SLADE SECRETARY BOOKKEEPER, SARAH A V77.1 DIABETES SCREENING 11/15/2013 MADL SECRETARY BOOKKEEPER, CRISTA L V77.1 DIABETES SCREENING 11/15/2013 MADL SECRETARY BOOKKEEPER, CRISTA L V77.1 DIABETES SCREENING 01/09/2014 TORRES DO, ESTEFANIA K V78.0 ANEMIA SCREENING 01/09/2014 TORRES DO, ESTEFANIA K V78.0 ANEMIA SCREENING 01/09/2014 TORRES DO, ESTEFANIA K V78.0 ANEMIA SCREENING 01/09/2014 TORRES DO, ESTEFANIA K V78.0 ANEMIA SCREENING 01/09/2014 TORRES DO, ESTEFANIA K V78.0 ANEMIA SCREENING 01/09/2014 TORRES DO, ESTEFANIA K V78.0 ANEMIA SCREENING 01/09/2014 SLADE SECRETARY BOOKKEEPER, SARAH A V78.0 ANEMIA SCREENING 01/09/2014 MADL SECRETARY BOOKKEEPER, CRISTA L V78.0 ANEMIA SCREENING 01/09/2014 MADL SECRETARY BOOKKEEPER, CRISTA L V78.0 ANEMIA SCREENING 02/22/2014 TORRES DO, ESTEFANIA K 649.60 UTERINE SIZE DATE DISCREPANCY - LGA 02/22/2014 TORRES DO, ESTEFANIA K 649.60 UTERINE SIZE DATE DISCREPANCY - LGA 02/22/2014 TORRES DO, ESTEFANIA K 649.60 UTERINE SIZE DATE DISCREPANCY - LGA 02/22/2014 SHANEL JUNE APRNIDI A 649.60 UTERINE SIZE DATE DISCREPANCY - LGA 02/22/2014 MADL SECRETARY BOOKKEEPER, CRISTA L 649.60 UTERINE SIZE DATE DISCREPANCY - LGA 02/22/2014 MADL SECRETARY BOOKKEEPER, CRISTA L 649.60 UTERINE SIZE DATE DISCREPANCY - LGA 03/01/2014 TORRES DO, ESTEFANIA K V28.6 GBS SCREENING 03/01/2014 TORRES DO, ESTEFANIA K V28.6 GBS SCREENING 03/01/2014 TORRES DO, ESTEFANIA K V28.6 GBS SCREENING 03/01/2014 SHANEL JUNE APRNIDI A V28.6 GBS SCREENING 03/01/2014 MADL SECRETARY BOOKKEEPER, CRISTA L V28.6 GBS SCREENING 03/01/2014 MADL SECRETARY BOOKKEEPER, CRISTA L V28.6 GBS SCREENING 03/13/2014 TORRES DO ESTEFANIA K 796.2 ELEVATED BLOOD PRESSURE READING WITHOUT DIAGNOSIS OF HYPERTENSION 03/13/2014 TORRES DO ESTEFANIA K 796.2 ELEVATED BLOOD PRESSURE READING WITHOUT DIAGNOSIS OF HYPERTENSION 03/13/2014 SHANEL JUNE APRNIDI A 796.2 ELEVATED BLOOD PRESSURE READING WITHOUT DIAGNOSIS OF HYPERTENSION 03/13/2014 MADL SECRETARY BOOKKEEPERJEANETTE RaymondCRISTA L 796.2 ELEVATED BLOOD PRESSURE READING WITHOUT DIAGNOSIS OF HYPERTENSION 03/13/2014 MADL SECRETARY BOOKKEEPER, CRISTA L 796.2 ELEVATED BLOOD PRESSURE READING WITHOUT DIAGNOSIS OF HYPERTENSION 03/21/2014 ESTEFANIA TORRES DO Ot 642.31 03/21/2014 ESTEFANIA TORRES DO Ot 656.61 03/21/2014 ESTEFANIA TORRES DO Ot V06.1 03/21/2014 ESTEFANIA TORRES DO Ot V27.0 04/26/2014 SLADE SECRETARY BOOKKEEPER, SARAH A 455.6 UNSPECIFIED HEMORRHOIDS WITHOUT COMPLICATION 04/26/2014 SLADE SECRETARY BOOKKEEPER, SARAH A V04.81 FLU SHOT 04/26/2014 SLADE SECRETARY BOOKKEEPER, SARAH A V24.2 F/U, ROUTINE 04/26/2014 MADL SECRETARY BOOKKEEPER, CRISTA L 455.6 UNSPECIFIED HEMORRHOIDS WITHOUT COMPLICATION 04/26/2014 MADL SECRETARY BOOKKEEPER, CRISTA L V04.81 FLU SHOT 04/26/2014 MADL SECRETARY BOOKKEEPER, CRISTA L V24.2 F/U, ROUTINE 04/26/2014 MADL SECRETARY BOOKKEEPER, CRISTA L 455.6 UNSPECIFIED HEMORRHOIDS WITHOUT COMPLICATION 04/26/2014 MADL SECRETARY BOOKKEEPER, CRISTA L V04.81 FLU SHOT 04/26/2014 MADL SECRETARY BOOKKEEPER, CRISTA L V24.2 F/U, ROUTINE 05/17/2014 MADL SECRETARY BOOKKEEPER, CRISTA L 724.2 BACK PAIN, LOWER 05/17/2014 MADL SECRETARY BOOKKEEPER, CRISTA L 724.2 BACK PAIN, LOWER 07/04/2014 MADL SECRETARY BOOKKEEPER, CRISTA L 727.49 OTHER GANGLION AND CYST OF SYNOVIUM TENDON AND BURSA 07/04/2014 MADL SECRETARY BOOKKEEPER, CRISTA L 789.00 ABDOMINAL PAIN UNSPECIFIED SITE 07/10/2014 MADL SECRETARY BOOKKEEPER, CRISTA L 789.1 HEPATOMEGALY 07/21/2014 ESTEFANIA TORRES DO K Ot 649.63 07/21/2014 ESTEFANIA TORRES DO K Ot 656.63 07/21/2014 MADL, CRISTA L 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 Ot 789.1 08/01/2014 MADL, CRISTA L 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 Ot 789.1 02/05/2015 MCKEON NALINI SLOAN Ot 727.43 02/05/2015 PROCTOR NALINI SLOAN Ot V72.84 02/08/2015 MELISSA SLOANBRIDGETTA Meka Ot 649.63 02/08/2015 MELISSA SLOANESTEFANIA Ot 656.63 02/08/2015 CRISTA ROSALES 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 Ot 789.1 02/08/2015 PROCTOR NALINI SLOAN D Ot 727.43 02/08/2015 PROCTOR NALINI SLOAN Ot V72.84 02/08/2015 [facility] NALINI D Ot 727.43 03/12/2015 AUDREY DE LOS SANTOS Ot 626.2 03/12/2015 AUDREY DE LOS SANTOS Ot 789.00 03/12/2015 AUDREY DE LOS SANTOS Ot E000.8 03/12/2015 AUDREY DE LOS SANTOS Ot E968.8 04/06/2015 TORRES ESTEFANIA SLOAN Ot 649.63 04/06/2015 MELISSA SLOANESTEFANIA Ot 656.63 04/06/2015 CRISTA ROSALES 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 Ot 789.1 04/06/2015 [facility] 727.43 04/06[facility]2015 [facility] Ot V72.84 04/19/2015 CRISTA ROSALES 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 Ot R10.2 08/09/2015 [place] APRN Ot [...] TORRES DO Ot 656.63 09/04/2015 CRISTA ROSALES Ot 789.1 09/04/2015 MCKEONNALINI HOWARD DO Ot 727.43 09/04/2015 MCKEONNALINI HOWARD DO Ot V72.84 09/05/2015 [place] SECRETARY BOOKKEEPER Ot S61.011A 09/05/2015 [place] SECRETARY BOOKKEEPER Ot W26.0XXA 09/05/2015 [place] SECRETARY BOOKKEEPER Ot Y92.511 09/05/2015 [place] SECRETARY BOOKKEEPER Ot Y99.0 09/05/2015 [place] SECRETARY BOOKKEEPER Ot Z23 09/19/2015 YAZMIN CORTES, KYLE Pablo Ot R10.84 GENERALIZED ABDOMINAL PAIN 09/19/2015 YAZMIN CORTES, KYLE Pablo Ot Z32.02 ENCOUNTER FOR TEST, RESULT NEG 10/16/2015 SHANNON JASSO MD Ot F17.210 NICOTINE DEPENDENCE, CIGARETTES, UNCOMPL 10/16/2015 SHANNON JASSO MD Ot R20.0 ANESTHESIA OF SKIN 10/16/2015 SHANNON JASSO MD Ot R51 HEADACHE 10/18/2015 SHANNON JASSO MD, Ot F17.210 NICOTINE DEPENDENCE, CIGARETTES, UNCOMPL 10/18/2015 SHANNON JASSO MD Ot R20.0 ANESTHESIA OF SKIN 10/18/2015 SHANNON JASSO MD Ot R51 HEADACHE 11/30/2015 DANICA HWANG DO Ot N91.2 AMENORRHEA, UNSPECIFIED 12/13/2015 HUMBERTO HWANG DOA C Ot N91.2 AMENORRHEA, UNSPECIFIED 01/14/2016 AUDREY DE LOS SANTOS Ot J06.9 ACUTE UPPER RESPIRATORY INFECTION, UNSPE 01/14/2016 AUDREY DE LOS SANTOS Ot R05 COUGH 02/11/2016 SHANNON JASSO MD Ot N30.00 ACUTE CYSTITIS WITHOUT HEMATURIA 02/11/2016 SHANNON JASSO MD Ot R82.90 UNSPECIFIED ABNORMAL FINDINGS IN URINE 02/12/2016 SHANNON JASSO MD, Ot N30.00 ACUTE CYSTITIS WITHOUT HEMATURIA 02/12/2016 LOUISA MD, SHANNON D Ot R82.90 UNSPECIFIED ABNORMAL FINDINGS IN URINE 02/18/2016 CRISTA ROSALES 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 Ot R10.2 PELVIC AND PERINEAL PAIN 02/18/2016 DANICA HWANG DO Ot N91.2 AMENORRHEA, UNSPECIFIED 02/20/2016 CARISSA CARRERO MD Ot R07.9 CHEST PAIN, UNSPECIFIED 03/06/2016 CARISSA CARRERO MD Ot R07.9 CHEST PAIN, UNSPECIFIED 05/18/2016 CARISSA CARRERO MD Ot R07.9 CHEST PAIN, UNSPECIFIED 06/01/2016 [place] SECRETARY BOOKKEEPER Ot H92.02 OTALGIA, LEFT EAR 06/03/2016 [place] SECRETARY BOOKKEEPER Ot H92.02 OTALGIA, LEFT EAR 06/03/2016 CRISTA ROSALES 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 Ot R10.2 PELVIC AND PERINEAL PAIN 06/03/2016 DANICA HWANG DO Ot N91.2 AMENORRHEA, UNSPECIFIED 06/03/2016 CARISSA CARRERO MD Ot R07.9 CHEST PAIN, UNSPECIFIED 07/14/2016 DHEERAJ [...] 8 WEEKS GESTATION OF 07/17/2016 CRISTA ROSALES 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 Ot R10.2 PELVIC AND PERINEAL PAIN 07/17/2016 DANICA HWANG DO Natalia Ot N91.2 AMENORRHEA, UNSPECIFIED 07/17/2016 ALISE CORTES, CARISSA Coleman Ot R07.9 CHEST PAIN, UNSPECIFIED 07/18/2016 KIARA MAO MD, Ot Z34.81 ENCOUNTER FOR SUPRVSN OF NORMAL PREGNANC 07/19/2016 DHEERAJ SLOAN ISIDRO K Ot F17.210 NICOTINE DEPENDENCE, CIGARETTES, UNCOMPL 07/19/2016 DHEERAJ SLOAN ISIDRO K Ot K02.9 DENTAL CARIES, UNSPECIFIED 07/19/2016 DHEERAJ SLOAN ISIDRO K Ot K08.89 OTHER SPECIFIED DISORDERS OF TEETH AND S 07/19/2016 GENE ESQUEDA DOA K Ot O99.331 SMOKING (TOBACCO) COMPLICATING 07/19/2016 ISIDRO ESQUEDA DO Ot Z3A.08 8 WEEKS GESTATION OF 07/30/2016 [...] Z36 ENCOUNTER FOR SCREENING OF MOT 12/07/2016 NAOOP HWANG MD Ot O99.89 OTH DISEASES AND CONDITIONS COMPL PREG/C 12/07/2016 ANOOP HWANG MD Ot R10.2 PELVIC AND PERINEAL PAIN 12/07/2016 ANOOP HWANG MD Ot Z3A.29 29 WEEKS GESTATION OF 12/17/2016 ANOOP HWANG MD Ot O99.89 OTH DISEASES AND CONDITIONS COMPL PREG/C 12/17/2016 ANOOP HWANG MD Ot R10.2 PELVIC AND PERINEAL PAIN 12/17/2016 ANOOP HWANG MD, Ot Z3A.29 29 WEEKS GESTATION OF 01/16/2017 [...] R10.9 UNSPECIFIED ABDOMINAL PAIN 02/07/2017 PEPE MEEK MD Ot Z3A.38 38 WEEKS GESTATION OF 02/12/2017 [...] WEEKS OF GESTATION OF NOT SPEC 10/05/2017 MADCRISTA Ventura 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 Ot R10.2 PELVIC AND PERINEAL PAIN 10/05/2017 [...] WEEKS OF GESTATION OF NOT SPEC 10/06/2017 MADL, CRISTA L 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 Ot N83.202 UNSPECIFIED OVARIAN CYST, LEFT SIDE 10/22/2017 MADL, CRISTA L 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 Ot N83.202 UNSPECIFIED OVARIAN CYST, LEFT SIDE 01/30/2018 Ot E78.00 PURE HYPERCHOLESTEROLEMIA, UNSPECIFIED 01/30/2018 Ot G43.909 MIGRAINE, UNSP, NOT INTRACTABLE, WITHOUT 01/30/2018 Ot J02.9 ACUTE PHARYNGITIS, UNSPECIFIED 01/30/2018 Ot K21.9 GASTRO- ESOPHAGEAL REFLUX DISEASE WITHOUT 01/30/2018 Ot Z87.891 PERSONAL HISTORY OF NICOTINE DEPENDENCE 01/30/2018 Ot Z88.0 ALLERGY STATUS TO PENICILLIN 01/30/2018 Ot Z90.89 ACQUIRED ABSENCE OF OTHER ORGANS 02/25/2018 BRENDA LALA Ot E78.5 HYPERLIPIDEMIA, UNSPECIFIED 02/25/2018 BRENDA LALA Ot R00.2 PALPITATIONS 02/25/2018 BRENDA LALA Ot R06.00 DYSPNEA, UNSPECIFIED 02/25/2018 BRENDA LALA Ot R42 DIZZINESS AND GIDDINESS 03/08/2018 CARISSA CARRERO MD Ot R07.9 CHEST PAIN, UNSPECIFIED 03/08/2018 NALINI MCKEON DO Ot Z01.818 ENCOUNTER FOR OTHER PREPROCEDURAL EXAMIN Procedures Code Description [place] [address] [facility] 07/12/2013 72470 PAP SMEAR 07/12/2013 Q0091 PAP SMEAR OBTAIN SMEAR 07/12/2013 69836 TEST, URINE (IN- HOUSE) 07/12/2013 70276 TRICHOMONAS (IN-HOUSE) 07/12/2013 39761 CULTURE UROGENITAL 07/14/2013 58903 TEST, URINE (IN- HOUSE) 09/12/2013 80207 ROUTINE VENIPUNCTURE 09/15/2013 76769 UA OB DIP 09/15/2013 39447 URINE DRUG SCREEN (IN-HOUSE ) 09/15/2013 40351 TSH 09/15/2013 65984 [facility]PH[facility]IS[facility] 09/15/2013 16433 HIV ([facility]) 09/15/2013 68363 RUBELLA ANTIBODY, IGG 09/15/2013 54812 ANTIBODY SCREEN (order) 09/15/2013 88763 BLOOD TYPE/Rh FACTOR 09/15/2013 21370 HEP B SURFACE ANTIGEN (STATE ) 09/15/2013 92740 CBC 09/15/2013 83895 UA LONG DIP 10/12/2013 25019 TRICHOMONAS (IN-HOUSE) 10/12/2013 73361 GC/CHLAM PROBE ([facility]) 10/12/2013 97263 CULTURE UROGENITAL 10/15/2013 21575 ROUTINE VENIPUNCTURE 11/15/2013 18167 US OB - COMPLETE >14 WEEKS 11/15/2013 96146 UA OB DIP 11/15/2013 98825 GLUCOSE REYNA 1 HOUR 11/15/2013 69729 UA OB DIP 12/13/2013 85025 ROUTINE VENIPUNCTURE 01/09/2014 53153 GLUCOSE REYNA 3 HOUR 01/09/2014 42229 UA OB DIP 01/09/2014 29856 GLUCOSE REYNA 1 HOUR 01/10/2014 34430 CBC 01/10/2014 06497 UA OB DIP 01/23/2014 91088 UA OB DIP 02/06/2014 44670 ROUTINE VENIPUNCTURE 02/22/2014 89034 UA OB DIP 02/22/2014 40307 GLUCOSE FINGER STICK 02/22/2014 30844 VARICELLA ANTIBODY 02/23/2014 36128 UA OB DIP 03/01/2014 55948 US OB - FOLLOW UP 03/02/2014 64184 CULTURE GROUP B STREP VAG 03/03/2014 11875 ROUTINE VENIPUNCTURE 03/13/2014 2000F BLOOD PRESSURE CHECK 03/13/2014 61430 UA OB DIP 03/13/2014 61097 GLUCOSE FINGER STICK 03/13/2014 1664501 GFR CALC (RESULT ONLY) 03/14/2014 80393 CMP 03/14/2014 81928 LDH 03/14/2014 79197 URIC ACID 03/14/2014 84626 CBC 03/14/2014 83170 URINE PROTEIN 24 HOUR 03/16/2014 BLOOD PRESSURE CHECK 03/17/2014 14620 ROUTINE VENIPUNCTURE 05/17/2014 43023 XRAY LUMBAR SPINE 2 OR 3 VIEWS 05/17/2014 97716 CMP 05/17/2014 58225 CBC 05/17/2014 02652 XRAY ABDOMEN 2 VIEWS 07/04/2014 04975 US ABDOMINAL ULTRASOUND, COMPLETE 07/04/2014 60882UN DRAINAGE OF AMNIOTIC FL, THERAP FROM POC 02/10/2017 [id number] DELIVERY OF PRODUCTS OF CONCEPTION, EXTE 02/10/2017 [...] Negative Negative Urine Culture, Routine - 07/09/16 15:35 Urine Culture, Routine Note Genital Culture, Routine - 07/09/16 15:35 Genital Culture, Routine Note Complete urinalysis with [...] culture - 01/25/17 21:30 Bacterial urine culture [id number] NRG COLONY COUNT >100,000/ML NRG FTX;REPORTABLE PLUS, [...] culture - 02/07/17 00:50 Bacterial urine culture [id number] NRG COLONY COUNT >100,000/ML NRG FTX;REPORTABLE PLUS, [...] susceptibility test by minimum inhibitory concentration - NR Complete blood count (CBC) with automated white [...] panel - 02/10/17 07:25 ABO+Rh group AP NR Transfusion band number [id number] NR Blood group antibody screen NEGATIVE [facility] Complete blood count (CBC) with automated white [...] Status Pt. Type Provider Facility Loc./Unit Complaint [id number] 07/04/2014 13:31:00 07/04/2014 23:59:59 CLS Outpatient CRISTA ROSALES APRN [id number] 05/17/2014 13:50:00 05/17/2014 23:59:59 CLS Outpatient CRISTA ROSALES APRN [id number] 04/26/2014 14:47:00 04/26/2014 23:59:59 CLS Outpatient SARAH JUNE APRN A [id number] 03/17/2014 09:57:00 03/17/2014 23:59:59 CLS Outpatient ESTEFANIA TORRES DO [id number] 03/13/2014 15:53:00 03/13/2014 23:59:59 CLS Outpatient ESTEFANIA TORRES DO [id number] 02/22/2014 10:12:00 02/22/2014 23:59:59 CLS Outpatient ESTEFANIA TORRES DO [id number] 02/06/2014 13:49:00 02/06/2014 23:59:59 CLS Outpatient ESTEFANIA TORRES DO [id number] 01/23/2014 15:13:00 01/23/2014 23:59:59 CLS Outpatient ESTEFANIA TORRES DO [id number] 01/09/2014 16:34:00 01/09/2014 23:59:59 CLS Outpatient ESTEFANIA TORRES DO [id number] 12/13/2013 14:10:00 12/13/2013 23:59:59 CLS Outpatient ESTEFANIA TORRES DO [id number] 12/13/2013 14:10:00 12/13/2013 23:59:59 CLS Outpatient ESTEFANIA TORRES DO [id number] 11/15/2013 13:57:00 11/15/2013 23:59:59 CLS Outpatient ESTEFANIA TORRES DO [id number] 11/15/2013 13:57:00 11/15/2013 23:59:59 CLS Outpatient ESTEFANIA TORRES DO [id number] 10/12/2013 14:55:00 10/12/2013 23:59:59 CLS Outpatient SARAH JUNE APRN Angelica [id number] 10/12/2013 14:55:00 10/12/2013 23:59:59 CLS Outpatient SLADESARAH Raymond APRN Angelica [id number] 09/15/2013 14:50:00 09/15/2013 23:59:59 CLS Outpatient SLADESHANEL Raymond APRNELBERT Dominguez [id number] 07/12/2013 08:51:00 07/12/2013 23:59:59 CLS Outpatient SHANEL JUNE APRNELBERT Dominguez [id number] 04/09/2013 13:20:00 04/09/2013 23:59:59 CLS Outpatient SADA POND APRN [id number] 07/14/2016 13:05:00 Document Registration [id number] 07/10/2016 18:06:00 Document Registration [id number] 03/06/2016 08:58:00 Document Registration [id number] 07/11/2016 18:06:00 Document Registration [id number] 03/08/2018 09:15:00 03/08/2018 09:19:00 DIS Outpatient NALINI MCKEON DO [facility] PREOP EGD [id number] 02/24/2018 10:24:00 02/24/2018 23:59:59 CLS Outpatient BRENDA LALA [facility] CARD R42 DIZZINESS [id number] 10/05/2017 13:02:00 10/05/2017 23:59:59 CLS Outpatient SAE ROSALESA L KELLEY [facility] RAD R10.2 PELVIC PAIN [id number] 02/10/2017 06:57:00 02/12/2017 11:30:00 DIS Inpatient KIARA MAO MD [facility] LDRP INDUCTION [id number] 02/09/2017 13:41:00 02/09/2017 23:59:59 CLS Outpatient KIARA MAO MD [facility] RAD POSITION [id number] 02/07/2017 00:45:00 02/07/2017 02:33:00 DIS Outpatient PEPE MEEK MD [facility] WSo CONTRACTIONS [id number] 01/25/2017 21:03:00 01/25/2017 22:24:00 DIS Outpatient ANOOP HWANG MD [facility] WSo CONTRACTIONS [id number] 12/29/2016 09:49:00 12/29/2016 23:59:59 CLS Outpatient KIARA MAO MD [facility] RAD FUNDAL HEIGHT INCREASE [id number] 12/07/2016 16:52:00 12/07/2016 18:10:00 DIS Outpatient ANOOP HWANG MD [facility] WSo ABD PAIN/PRESSURE [id number] 10/09/2016 13:28:00 10/09/2016 23:59:59 CLS Outpatient KIARA MAO MD [facility] RAD EVAL SPINE F/U [id number] 09/18/2016 13:31:00 09/18/2016 23:59:59 CLS Outpatient KIARA MAO MD [facility] RAD SURVEY [id number] 07/17/2016 10:22:00 07/17/2016 23:59:59 CLS Outpatient KIARA MAO MD [facility] RAD NORMAL IN MULTIGRAVIDA [id number] 07/13/2016 23:34:00 07/14/2016 00:22:00 DIS Emergency DHEERAJ DOISIDRO [facility] ER FAICAL PAIN EAR ACHE [id number] 06/01/2016 19:44:00 06/01/2016 20:02:00 DIS Emergency [place] SECRETARY BOOKKEEPER [facility] ER EAR ACHE [id number] 05/19/2016 10:30:00 05/19/2016 23:59:59 CLS Preadmit CARISSA CARRERO MD [facility] CARD CHEST PAIN [id number] 02/18/2016 10:30:00 05/18/2016 00:01:00 DIS Outpatient CARISSA CARRERO MD [facility] CARD CHEST PAIN [id number] 02/11/2016 22:18:00 02/11/2016 23:41:00 DIS Emergency SHANNON JASSO MD [facility] ER DECREASE IN URINATION [id number] 01/14/2016 13:37:00 01/14/2016 14:23:00 DIS Emergency AUDREY DE LOS SANTOS [facility] ER COUGH/CONGESTION [id number] 11/28/2015 15:02:00 11/28/2015 23:59:59 CLS Outpatient DANICA HWANG DO [facility] RAD AMENORRHEA [id number] 10/16/2015 06:11:00 10/16/2015 08:40:00 DIS Emergency SHANNON JASSO MD [facility] ER NUMB ON HEAD,SHAKES ALL OVER,KNEE PAIN [id number] 09/19/2015 06:53:00 09/19/2015 09:35:00 DIS Emergency KYLE ARCE MD [facility] ER LOWER ABD PAIN [id number] 09/04/2015 20:40:00 09/04/2015 21:08:00 DIS Emergency [place] APRN [facility] ER R HAND THUMB LAC [id number] 08/09/2015 11:58:00 08/09/2015 14:32:00 DIS Emergency [place] APRN [facility] ER SORE THROAT [id number] 04/06/2015 11:54:00 04/06/2015 23:59:59 CLS Outpatient CRISTA ROSALES [facility] RAD PELVIC PAIN [id number] 03/12/2015 18:20:00 03/12/2015 23:23:00 DIS Emergency ROQUE CREWSAUDREY [facility] ER [id number] 02/08/2015 08:08:00 02/08/2015 14:30:00 DIS Outpatient MCKEON DO, NALINI D [facility] SDC [id number] 02/01/2015 14:28:00 02/01/2015 23:59:59 CLS Outpatient MCKEON DO, NALINI D [facility] PREOP [id number] 07/19/2014 08:41:00 07/19/2014 23:59:59 CLS Outpatient 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 [facility] RAD [id number] 03/19/2014 00:35:00 03/21/2014 17:10:00 DIS Inpatient TORRES DO, ESTEFANIA K [facility] WS [id number] 03/01/2014 11:59:00 03/01/2014 23:59:59 CLS Outpatient TORRES DO, ESTEFANIA K [facility] RAD [id number] 03/18/2018 10:00:00 PEN Preadmit MCKEON DO, NALINI D [facility] CARD CHEST PAIN,GERD [id number] 03/12/2018 07:00:00 PEN Preadmit MCKEON DO, NALINI D [facility] RAD CHEST PAIN,GERD [id number] 03/09/2018 11:00:00 PEN Preadmit MCKEON DO, NALINI D [facility] ENDO GERD [id number] 01/30/2018 17:20:00 Document Registration [id number] 03/07/2016 07:06:00 Document Registration [id number] 07/13/2016 07:05:00 Document Registration [id number] 06/19/2016 07:06:00 Document Registration [id number] 10/21/2017 14:05:00 10/21/2017 23:59:59 CLS Outpatient [facility]AD[facility]
[2018-03-09] MEDS ORDERED: LACTATED RINGERS 1,000 ML IV ONE (09:12)
[2018-03-09] MEDS ORDERED: LACTATED RINGERS 1,000 ML IV STA (09:13)
[2018-03-09] MEDS ORDERED: HURRICAINE EXT TUBE (BENZOCAINE) XX PRN (09:15)
[2018-03-09 09:27] VITALS: BP 125/75
--- NOTE | 2018-03-09 09:42 | Progress Note-Pre Operative ---
Pre-Operative Progress Note H&P Reviewed The H&P was reviewed, patient examined and no changes noted. Date Seen by Provider: Mar 09, 2018 Time Seen by Provider: 09:42 Date H&P Reviewed: Mar 09, 2018 Time H&P Reviewed: 09:42 Pre-Operative Diagnosis: GERD NALINI MCKEON DO Mar 09, 2018 09:42
[2018-03-09] MEDS ORDERED: proPOfol 200 MG/20 ML (DIPRIVAN) VIAL IV ONE ×2 (10:16→10:33)
[2018-03-09] MEDS ORDERED: MIDAZOLAM 2 MG/2 ML (VERSED) VIAL ONE (10:27)
[2018-03-09] MEDS ORDERED: PANT40TA2 PO (10:47)
--- NOTE | 2018-03-09 10:49 | Discharge Inst-Simple/Standard ---
Discharge Inst-Standard Discharge Medications New, Converted or Re-Newed RX: Transmitted to Pharmacy Patient Instructions/Follow Up Plan of Care/Instructions/FU: 2-3 weeks Elvie Activity as Tolerated: Yes Discharge Diet: Regular Diet NALINI MCKEON DO Mar 09, 2018 10:48
--- NOTE | 2018-03-09 10:52 | Progress Note-Post Operative ---
Post-Operative Progess Note Surgeon (s)/Hearing Therapy Director (s) Surgeon NALINI MCKEON DO Hearing Therapy Director: na Pre-Operative Diagnosis GERD Post-Operative Diagnosis gastritis Procedure & Operative Findings Date of Procedure 03/09/18 Procedure Performed/Findings egd c biopsies antrum, body, ge junction Anesthesia Type per mda Estimated Blood Loss Estimated blood loss (mL): none Specimens/Packing Specimens Removed antrum ,body, ge NALINI MCKEON DO Mar 09, 2018 10:52
[2018-03-09 11:00] VITALS: BP 126/80
[2018-03-09 11:25] VITALS: BP 111/65
[2018-03-09 11:39] VITALS: BP 111/65
--- NOTE | 2018-03-09 17:10 | OPERATIVE REPORT ---
DATE OF SERVICE: 03/09/2018 PREOPERATIVE DIAGNOSIS: Gastroesophageal reflux disease. POSTOPERATIVE DIAGNOSIS: Gastritis. PROCEDURE: EGD with biopsies of the antrum, body and GE junction. SURGEON: Nalini Bermeo DO ANESTHESIA: Per MDA. ESTIMATED BLOOD LOSS: None. COMPLICATIONS: None. INDICATIONS: The patient is a 27-year-old female, who is having GERD symptoms. She was explained risks and benefits of procedure and wished to proceed with procedure. Consent was signed in the chart. DESCRIPTION OF PROCEDURE: The patient was taken to the endoscopy suite, placed in left lateral recumbent position. Timeout was performed. Scope was inserted into mouth, down the esophagus, stomach and into the duodenum without difficulty. There were no polyps, masses or ulcerations within the duodenum. There were no erythematous changes. The scope was slowly retracted back into the stomach where it was further insufflated. Some erythematous changes present. No polyps, masses or ulcerations. Scope was retroflexed with no other pathology. Scope was returned to its normal position. Biopsy of the antrum and body were obtained. Scope was slowly retracted back into the distal esophagus, which had questionable appearance of some esophagitis and biopsy was obtained. Scope was slowly retracted back noting no other pathology. The patient tolerated procedure well without any complications. She was taken to recovery room in stable condition. RECOMMENDATIONS: The patient will be started on Protonix 40 mg daily. We will see how she is doing on this and await biopsy results. Further recommendations pending results. Job ID: [id number] DocumentID: [id number] Dictated Date: 03/09/2018 10:52:10 Property Management Supervisor Date: 03/09/2018 17:09:37 Dictated By: NALINI BERMEO DO
== END 2018-03-09 11:30 | disposition home or self-care (01) ==
LOC: ENDO 08:56
PROVIDERS: ATTEND Surgery
DX: K29.70 Gastritis, unspecified, without bleeding (principal); K21.9 Gastro-esophageal reflux disease without esophagitis; F17.210 Nicotine dependence, cigarettes, uncomplicated; E66.01 Morbid (severe) obesity due to excess calories; Z68.41 Body mass index [BMI] 40.0-44.9, adult
CPT/HCPCS: 84703

== ENCOUNTER → 2018-03-12 | Outpatient (CLI) | payer MEDICAID ==
[~2018-03-12] MED LIST changes: +PANT40TA2 PO
--- NOTE | 2018-03-12 09:17 | Diagnostic Imaging Report ---
INDICATION: Chest pain, gastroesophageal reflux disease. TECHNIQUE: Multiple grayscale sonographic images were obtained of the right upper quadrant of the abdomen. CORRELATION STUDY: None FINDINGS: LIVER: There is dense echotexture within the visualized portions of the liver. There is normal, hepatopedal direction of flow within the main portal vein. Liver size at 22 cm. GALLBLADDER: The gallbladder demonstrates no definitive shadowing gallstones. No abnormal gallbladder wall thickening or pericholecystic fluid. COMMON BILE DUCT: Nondilated at 4 mm. PANCREAS: Largely obscured. RIGHT KIDNEY: Measures 13.3 cm. No hydronephrosis. AORTA/IVC: Not well visualized. OTHER: None. IMPRESSION: 1. Negative for gallstones or bile duct dilatation. 2. Hepatomegaly with likely changes of hepatic steatosis. Dictated by: Dictated on workstation # [id number]
== END ==
LOC: RAD 07:07
PROVIDERS: ATTEND Surgery
DX: K21.9 Gastro-esophageal reflux disease without esophagitis (principal); R16.0 Hepatomegaly, not elsewhere classified; R07.9 Chest pain, unspecified
CPT/HCPCS: 76705

== ENCOUNTER → 2018-03-18 | Outpatient (CLI) | payer MEDICAID ==
[~2018-03-18] MED LIST changes: +CATHETER FLUSH 10 ML SYR IV PRN
--- NOTE | 2018-03-18 15:50 | Diagnostic Imaging Report ---
EXAMINATION: Hepatobiliary scan with Ejection fraction. INDICATION: Abdominal pain. TECHNIQUE: This study was performed following administration of 4.9 mCi of MDP. 8 ounces of Ensure was also used for the ejection fraction. FINDINGS: There are no prior nuclear medicine studies available for comparison. The gallbladder ultrasound exam performed on 03/12/2018 failed to show any sign of cholelithiasis or acute cholecystitis. On this study, there is uptake of the radiotracer by the gallbladder before 30 minutes. This would weight against the diagnosis of acute cholecystitis. There is also extension of the radiotracer into the small bowel indicating that the common bile duct is not obstructed. The ejection fraction is only 10.9% (normal greater than 35%). The reason for the diminished ejection fraction is not certain. The possibility of biliary dyskinesia should be considered. IMPRESSION: 1. There is no evidence for acute cholecystitis or for obstruction of the common bile duct. 2. The ejection fraction is 10.9% and below normal limits. Dictated by: Dictated on workstation # [id number]
== END ==
LOC: CARD 09:46
PROVIDERS: ATTEND Surgery
DX: R07.9 Chest pain, unspecified (principal); K21.9 Gastro-esophageal reflux disease without esophagitis
CPT/HCPCS: 78227

== ENCOUNTER 2018-03-31 06:09 | Outpatient (CLI) | payer MEDICAID ==
[~2018-03-31] VITALS: Ht 165.1 cm; Wt 113.4 kg
[~2018-03-31 06:09] MED LIST changes: -CATHETER FLUSH 10 ML SYR IV PRN
[2018-03-31] MEDS ORDERED: PANT40TA3 PO (10:33)
[2018-04-01] MEDS ORDERED: ACHD5005 PO (12:14)
[2018-04-01] MEDS ORDERED: DOCU-143 PO (12:14)
== END 2018-03-31 10:49 | disposition home or self-care (01) ==
LOC: PREOP 06:09
PROVIDERS: ATTEND Surgery
DX: Z01.818 Encounter for other preprocedural examination (principal)

== ENCOUNTER 2018-04-01 09:41 | Day surgery (SDC) | payer MEDICAID ==
[~2018-04-01] VITALS: Ht 165.1 cm; Wt 113.4 kg
[~2018-04-01 09:41] MED LIST changes: +PANT40TA3 PO
--- OUTSIDE RECORDS SUMMARY | 2018-04-01 09:50 | XMS REPORT | Continuity of Care Document ---
Author Author [facility] of [facility] Address Unknown Phone Unavailable Allergies Active Description Code Type Severity Reaction Onset Reported/Identified Relationship to Patient Clinical Status Yes No Known Drug Allergies [id number] Drug Allergy Unknown N/A 03/19/2014 Yes erythromycin base [id number] Drug Allergy Unknown reports that he 2015 Yes adhesive tape [id number] Drug Allergy Unknown HIVES 03/08/2018 Medications There is no data. Problems Date Dx Coded Attending Type Code Diagnosis Diagnosed By 04/09/2013 SADA POND APRN 461.9 SINUSITIS ACUTE 04/09/2013 SLADE STRAW HAT BRUSHER, SARAH A 461.9 SINUSITIS ACUTE 04/09/2013 SLADE STRAW HAT BRUSHER, SARAH A 461.9 SINUSITIS ACUTE 04/09/2013 SLADE STRAW HAT BRUSHER, SARAH A 461.9 SINUSITIS ACUTE 04/09/2013 SLADE STRAW HAT BRUSHER, SARAH A 461.9 SINUSITIS ACUTE 04/09/2013 TORRES [...] ESTEFANIA K 461.9 SINUSITIS ACUTE 04/09/2013 SLADE STRAW HAT BRUSHER, SARAH A 461.9 SINUSITIS ACUTE 04/09/2013 MADL STRAW HAT BRUSHER, CRISTA L 461.9 SINUSITIS ACUTE 04/09/2013 CONNIE GAUTAM, CRISTA L 461.9 SINUSITIS ACUTE 07/12/2013 SLADE GAUTAM, SARAH A V72.41 TEST NEGATIVE RESULT 07/12/2013 SLADE MONTESN, SARAH A V74.5 STD SCREEN 07/12/2013 SLADE MONTESN, SARAH A V76.2 CERVICAL CANCER SCREENING (PAP SMEAR) 07/12/2013 SLADE MONTESN, SARAH A V72.41 TEST NEGATIVE RESULT 07/12/2013 SLADE STRAW HAT BRUSHER, SARAH A V74.5 STD SCREEN 07/12/2013 SLADE MONTESN, SARAH A V76.2 CERVICAL CANCER SCREENING (PAP SMEAR) 07/12/2013 SLADE MONTESN, SARAH A V72.41 TEST NEGATIVE RESULT 07/12/2013 SLADE MONTESN, SARAH A V74.5 STD SCREEN 07/12/2013 SLADE GAUTAM, SARAH A V76.2 CERVICAL CANCER SCREENING (PAP SMEAR) 07/12/2013 LSADE GAUTAM, SARAH A V72.41 TEST NEGATIVE RESULT [...] CERVICAL CANCER SCREENING (PAP SMEAR) 07/12/2013 SLADE STRAW HAT BRUSHER, SARAH A V72.41 TEST NEGATIVE RESULT 07/12/2013 SLADE STRAW HAT BRUSHER, SARAH A V74.5 STD SCREEN 07/12/2013 SLADE STRAW HAT BRUSHER, SARAH A V76.2 CERVICAL CANCER SCREENING (PAP SMEAR) 07/12/2013 MADL STRAW HAT BRUSHER, CRISTA L V72.41 TEST NEGATIVE RESULT 07/12/2013 MADL STRAW HAT BRUSHER, CRISTA L V74.5 STD SCREEN 07/12/2013 MADL STRAW HAT BRUSHER, CRISTA L V76.2 CERVICAL CANCER SCREENING (PAP [...] K V22.1 , NORMAL OTHER 09/15/2013 SLADE STRAW HAT BRUSHER, SARAH A V22.1 , NORMAL OTHER 09/15/2013 MADL STRAW HAT BRUSHER, CRISTA L V22.1 , NORMAL OTHER 09/15/2013 MADL STRAW HAT BRUSHER, CRISTA L V22.1 , NORMAL OTHER 11/15/2013 [...] ESTEFANIA K V77.1 DIABETES SCREENING 11/15/2013 SLADE STRAW HAT BRUSHER, SARAH A V77.1 DIABETES SCREENING 11/15/2013 MADL STRAW HAT BRUSHER, CRISTA L V77.1 DIABETES SCREENING 11/15/2013 MADL STRAW HAT BRUSHER, CRISTA L V77.1 DIABETES SCREENING 01/09/2014 TORRES DO, ESTEFANIA K V78.0 ANEMIA SCREENING 01/09/2014 TORRES DO, ESTEFANIA K V78.0 ANEMIA SCREENING 01/09/2014 TORRES DO, ESTEFANIA K V78.0 ANEMIA SCREENING 01/09/2014 TORRES DO, ESTEFANIA K V78.0 ANEMIA SCREENING 01/09/2014 TORRES DO, ESTEFANIA K V78.0 ANEMIA SCREENING 01/09/2014 TORRES DO, ESTEFANIA K V78.0 ANEMIA SCREENING 01/09/2014 SLADE STRAW HAT BRUSHER, SARAH A V78.0 ANEMIA SCREENING 01/09/2014 MADL STRAW HAT BRUSHER, CRISTA L V78.0 ANEMIA SCREENING 01/09/2014 MADL STRAW HAT BRUSHER, CRISTA L V78.0 ANEMIA SCREENING 02/22/2014 TORRES DO, ESTEFANIA K 649.60 UTERINE SIZE DATE DISCREPANCY - LGA 02/22/2014 TORRES DO, ESTEFANIA K 649.60 UTERINE SIZE DATE DISCREPANCY - LGA 02/22/2014 TORRES DO, ESTEFANIA K 649.60 UTERINE SIZE DATE DISCREPANCY - LGA 02/22/2014 SHANEL JUNE APRNIDI A 649.60 UTERINE SIZE DATE DISCREPANCY - LGA 02/22/2014 MADL STRAW HAT BRUSHER, CRISTA L 649.60 UTERINE SIZE DATE DISCREPANCY - LGA 02/22/2014 MADL STRAW HAT BRUSHER, CRISTA L 649.60 UTERINE SIZE DATE DISCREPANCY - LGA 03/01/2014 TORRES DO, ESTEFANIA K V28.6 GBS SCREENING 03/01/2014 TORRES DO, ESTEFANIA K V28.6 GBS SCREENING 03/01/2014 TORRES DO, ESTEFANIA K V28.6 GBS SCREENING 03/01/2014 SHANEL JUNE APRNIDI A V28.6 GBS SCREENING 03/01/2014 MADL STRAW HAT BRUSHER, CRISTA L V28.6 GBS SCREENING 03/01/2014 MADL STRAW HAT BRUSHER, CRISTA L V28.6 GBS SCREENING 03/13/2014 TORRES DO ESTEFANIA K 796.2 ELEVATED BLOOD PRESSURE READING WITHOUT DIAGNOSIS OF HYPERTENSION 03/13/2014 TORRES DO ESTEFANIA K 796.2 ELEVATED BLOOD PRESSURE READING WITHOUT DIAGNOSIS OF HYPERTENSION 03/13/2014 SHANEL JUNE APRNIDI A 796.2 ELEVATED BLOOD PRESSURE READING WITHOUT DIAGNOSIS OF HYPERTENSION 03/13/2014 MADL STRAW HAT BRUSHERJEANETTE RaymondCRISTA L 796.2 ELEVATED BLOOD PRESSURE READING WITHOUT DIAGNOSIS OF HYPERTENSION 03/13/2014 MADL STRAW HAT BRUSHER, CRISTA L 796.2 ELEVATED BLOOD PRESSURE READING WITHOUT DIAGNOSIS OF HYPERTENSION 03/21/2014 ESTEFANIA TORRES DO Ot 642.31 03/21/2014 ESTEFANIA TORRES DO Ot 656.61 03/21/2014 ESTEFANIA TORRES DO Ot V06.1 03/21/2014 ESTEFANIA TORRES DO Ot V27.0 04/26/2014 SLADE STRAW HAT BRUSHER, SARAH A 455.6 UNSPECIFIED HEMORRHOIDS WITHOUT COMPLICATION 04/26/2014 SLADE STRAW HAT BRUSHER, SARAH A V04.81 FLU SHOT 04/26/2014 SLADE STRAW HAT BRUSHER, SARAH A V24.2 F/U, ROUTINE 04/26/2014 MADL STRAW HAT BRUSHER, CRISTA L 455.6 UNSPECIFIED HEMORRHOIDS WITHOUT COMPLICATION 04/26/2014 MADL STRAW HAT BRUSHER, CRISTA L V04.81 FLU SHOT 04/26/2014 MADL STRAW HAT BRUSHER, CRISTA L V24.2 F/U, ROUTINE 04/26/2014 MADL STRAW HAT BRUSHER, CRISTA L 455.6 UNSPECIFIED HEMORRHOIDS WITHOUT COMPLICATION 04/26/2014 MADL STRAW HAT BRUSHER, CRISTA L V04.81 FLU SHOT 04/26/2014 MADL STRAW HAT BRUSHER, CRISTA L V24.2 F/U, ROUTINE 05/17/2014 MADL STRAW HAT BRUSHER, CRISTA L 724.2 BACK PAIN, LOWER 05/17/2014 MADL STRAW HAT BRUSHER, CRISTA L 724.2 BACK PAIN, LOWER 07/04/2014 MADL STRAW HAT BRUSHER, CRISTA L 727.49 OTHER GANGLION AND CYST OF SYNOVIUM TENDON AND BURSA 07/04/2014 MADL STRAW HAT BRUSHER, CRISTA L 789.00 ABDOMINAL PAIN UNSPECIFIED SITE 07/10/2014 MADL STRAW HAT BRUSHER, CRISTA L 789.1 HEPATOMEGALY 07/21/2014 ESTEFANIA TORRES DO K Ot 649.63 07/21/2014 ESTEFANIA TORRES DO K Ot 656.63 07/21/2014 MADL, CRISTA L SENIOR LINUX ADMINISTRATOR Ot 789.1 08/01/2014 MADL, CRISTA L SENIOR LINUX ADMINISTRATOR Ot 789.1 02/05/2015 [place]KE[place] NALINI SLOAN Ot 727.43 02/05/2015 [place] NALINI SLOAN Ot V72.84 02/08/2015 MELISSA SLOANBRIDGETTA Meka Ot 649.63 02/08/2015 MELISSA SLOANESTEFANIA Ot 656.63 02/08/2015 CRISTA ROSALES SENIOR LINUX ADMINISTRATOR Ot 789.1 02/08/2015 [place] NALINI SLOAN D Ot 727.43 02/08/2015 [place] NALINI SLOAN Ot V72.84 02/08/2015 [facility] NALINI D Ot 727.43 03/12/2015 AUDREY DE LOS SANTOS Ot 626.2 03/12/2015 AUDREY [place] Ot 789.00 03/12/2015 AUDREY [place] Ot E000.8 03/12/2015 AUDREY [place] Ot E968.8 04/06/2015 TORRES ESTEFANIA SLOAN Ot 649.63 04/06/2015 MELISSA SLOANESTEFANIA Ot 656.63 04/06/2015 CRISTA ROSALES SENIOR LINUX ADMINISTRATOR Ot 789.1 04/06/2015 [facility] 727.43 04[facility]06[facility]2015 [facility] Ot V72.84 04/19/2015 CRISTA ROSALES SENIOR LINUX ADMINISTRATOR Ot R10.2 08/09/2015 [place] APRN Ot [...] HOWARD DO Ot V72.84 09/05/2015 [place] STRAW HAT BRUSHER Ot S61.011A 09/05/2015 [place] STRAW HAT BRUSHER Ot W26.0XXA 09/05/2015 [place] STRAW HAT BRUSHER Ot Y92.511 09/05/2015 [place] STRAW HAT BRUSHER Ot Y99.0 09/05/2015 [place] STRAW HAT BRUSHER Ot Z23 09/19/2015 YAZMIN CORTES, KYLE Pablo [...] ABNORMAL FINDINGS IN URINE 02/18/2016 CRISTA ROSALES SENIOR LINUX ADMINISTRATOR Ot R10.2 PELVIC AND PERINEAL PAIN 02/18/2016 DANICA HWANG DO Ot N91.2 AMENORRHEA, UNSPECIFIED 02/20/2016 CARISSA CARRERO MD Ot R07.9 CHEST PAIN, UNSPECIFIED 03/06/2016 CARISSA CARRERO MD Ot R07.9 CHEST PAIN, UNSPECIFIED 05/18/2016 CARISSA CARRERO MD Ot R07.9 CHEST PAIN, UNSPECIFIED 06/01/2016 [place] STRAW HAT BRUSHER Ot H92.02 OTALGIA, LEFT EAR 06/03/2016 [place] STRAW HAT BRUSHER Ot H92.02 OTALGIA, LEFT EAR 06/03/2016 CRISTA ROSALES SENIOR LINUX ADMINISTRATOR Ot R10.2 PELVIC AND PERINEAL PAIN 06/03/2016 [...] 8 WEEKS GESTATION OF 07/17/2016 CRISTA ROSALES SENIOR LINUX ADMINISTRATOR Ot R10.2 PELVIC AND PERINEAL PAIN 07/17/2016 [...] Ot Z3A.08 8 WEEKS GESTATION OF 07/30/2016 KIAAR MAO MD, Ot Z34.81 ENCOUNTER FOR SUPRVSN [...] MOT 12/07/2016 ANOOP HWANG MD Ot O99.89 OTH DISEASES [...] GESTATION OF NOT SPEC 10/05/2017 MADCRISTA Ventura SENIOR LINUX ADMINISTRATOR Ot R10.2 PELVIC AND PERINEAL PAIN 10/05/2017 [...] FOR SCREENING OF MOT 10/05/2017 KIARA MAO MD Ot Z36 ENCOUNTER FOR SCREENING OF MOT 10/05/2017 KIARA MAO MD, Ot Z3A.34 34 WEEKS GESTATION OF 10/05/2017 KIARA MAO MD Ot Z36 ENCOUNTER FOR SCREENING OF MOT 10/05/2017 KIARA MAO MD, Ot Z3A.00 WEEKS OF GESTATION OF NOT SPEC 10/06/2017 MADL, CRISTA L SENIOR LINUX ADMINISTRATOR Ot N83.202 UNSPECIFIED OVARIAN CYST, LEFT SIDE 10/22/2017 MADL, CRISTA L SENIOR LINUX ADMINISTRATOR Ot N83.202 UNSPECIFIED OVARIAN CYST, LEFT SIDE [...] Ot Z01.818 ENCOUNTER FOR OTHER PREPROCEDURAL EXAMIN 03/08/2018 NALINI MCKEON DO Ot Z01.818 ENCOUNTER FOR OTHER PREPROCEDURAL EXAMIN 03/09/2018 NALINI MCKEON DO Ot E66.01 MORBID (SEVERE) OBESITY DUE TO EXCESS CA 03/09/2018 NALINI MCKEON DO Ot F17.210 NICOTINE DEPENDENCE, CIGARETTES, UNCOMPL 03/09/2018 NALINI MCKEON DO Ot K21.9 GASTRO-ESOPHAGEAL REFLUX DISEASE WITHOUT 03/09/2018 NALINI MCKEON DO Ot K29.70 GASTRITIS, UNSPECIFIED, WITHOUT BLEEDING 03/09/2018 NALINI MCKEON DO Ot Z68.41 BODY MASS INDEX (BMI) 40.0-44.9, ADULT 03/11/2018 NALINI MCKEON DO Ot E66.01 MORBID (SEVERE) OBESITY DUE TO EXCESS CA 03/11/2018 NALINI MCKEON DO Ot F17.210 NICOTINE DEPENDENCE, CIGARETTES, UNCOMPL 03/11/2018 NALINI MCKEON DO Ot K21.9 GASTRO-ESOPHAGEAL REFLUX DISEASE WITHOUT 03/11/2018 MCKEON NALINI SLOAN Ot K29.70 GASTRITIS, UNSPECIFIED, WITHOUT BLEEDING 03/11/2018 NALINI MCKEON DO Ot Z68.41 BODY MASS INDEX (BMI) 40.0-44.9, ADULT 03/12/2018 CRISTA ROSALES SENIOR LINUX ADMINISTRATOR Ot R10.2 PELVIC AND PERINEAL PAIN 03/12/2018 DANICA HWANG DO Ot N91.2 AMENORRHEA, UNSPECIFIED 03/12/2018 CARISSA CARRERO MD Ot R07.9 CHEST PAIN, UNSPECIFIED 03/12/2018 KIARA MAO MD, Ot Z34.81 ENCOUNTER FOR SUPRVSN OF NORMAL PREGNANC 03/12/2018 KIARA MAO MD, Ot Z36 ENCOUNTER FOR SCREENING OF MOT 03/12/2018 KIARA MAO MD, Ot Z3A.18 18 WEEKS GESTATION OF 03/12/2018 KIARA MAO MD, Ot Z36 ENCOUNTER FOR SCREENING OF MOT 03/12/2018 KIARA MAO MD, Ot Z36 ENCOUNTER FOR SCREENING OF MOT 03/12/2018 KIARA MAO MD, Ot Z3A.34 34 WEEKS GESTATION OF 03/12/2018 KIARA MAO MD, Ot Z36 ENCOUNTER FOR SCREENING OF MOT 03/12/2018 KIARA MAO MD, Ot Z3A.00 WEEKS OF GESTATION OF NOT SPEC 03/12/2018 CRISTA ROSALES SENIOR LINUX ADMINISTRATOR Ot N83.202 UNSPECIFIED OVARIAN CYST, LEFT SIDE 03/12/2018 BRENDA LALA Ot E78.5 HYPERLIPIDEMIA, UNSPECIFIED 03/12/2018 WILSON LALAJULIO C Ackerman Ot R00.2 PALPITATIONS 03/12/2018 ZORAN CRESW, BRENDA K Ot R06.00 DYSPNEA, UNSPECIFIED 03/12/2018 ZORAN CREWS, BRENDA K Ot R42 DIZZINESS AND GIDDINESS 03/15/2018 MCKEON DO, NALINI D Ot K21.9 GASTRO-ESOPHAGEAL REFLUX DISEASE WITHOUT 03/15/2018 MCKEON DO, NALINI D Ot R07.9 CHEST PAIN, UNSPECIFIED 03/15/2018 MCKEON DO, NALINI D Ot R16.0 HEPATOMEGALY, NOT ELSEWHERE CLASSIFIED 03/15/2018 ZORAN CREWS BRENDA K Ot E78.5 HYPERLIPIDEMIA, UNSPECIFIED 03/15/2018 ZORAN CREWS BRENDA K Ot R00.2 PALPITATIONS 03/15/2018 ZORAN CREWS BRENDA K Ot R06.00 DYSPNEA, UNSPECIFIED 03/15/2018 ZORAN CREWS BRENDA K Ot R42 DIZZINESS AND GIDDINESS 03/22/2018 MCKEON DO, NALINI D Ot K21.9 GASTRO-ESOPHAGEAL REFLUX DISEASE WITHOUT 03/22/2018 MCKEON DO, NALINI D Ot R07.9 CHEST PAIN, UNSPECIFIED 03/24/2018 MCKEON DO, NALINI D Ot K21.9 GASTRO-ESOPHAGEAL REFLUX DISEASE WITHOUT 03/24/2018 MCKEON DO, NALINI D Ot R07.9 CHEST PAIN, UNSPECIFIED 03/24/2018 MCKEON DO, NALINI D Ot R16.0 HEPATOMEGALY, NOT ELSEWHERE CLASSIFIED 03/31/2018 ALISE CORTES, CARISSA Coleman Ot R07.9 CHEST PAIN, UNSPECIFIED 03/31/2018 MCKEON DO, NALINI D Ot K21.9 GASTRO-ESOPHAGEAL REFLUX DISEASE WITHOUT 03/31/2018 MCKEON DO, NALINI D Ot R07.9 CHEST PAIN, UNSPECIFIED 04/01/2018 MCKEON DO, NALINI D Ot E66.01 MORBID (SEVERE) OBESITY DUE TO EXCESS CA 04/01/2018 MCKEON DO, NALINI D Ot F17.210 NICOTINE DEPENDENCE, CIGARETTES, UNCOMPL 04/01/2018 MCKEON DO, NALINI D Ot K21.9 GASTRO-ESOPHAGEAL REFLUX DISEASE WITHOUT 04/01/2018 MCKEON DO, NALINI D Ot K29.70 GASTRITIS, UNSPECIFIED, WITHOUT BLEEDING 04/01/2018 NALINI MCKEON DO, Ot Z68.41 BODY MASS INDEX (BMI) 40.0-44.9, ADULT Procedures Code Description [place] [address] [facility] 07/12/2013 22267 PAP SMEAR 07/12/2013 Q0091 PAP SMEAR OBTAIN SMEAR 07/12/2013 55267 TEST, URINE (IN- HOUSE) 07/12/2013 03727 TRICHOMONAS (IN-HOUSE) 07/12/2013 86633 CULTURE UROGENITAL 07/14/2013 56187 TEST, URINE (IN- HOUSE) 09/12/2013 51826 ROUTINE VENIPUNCTURE 09/15/2013 12419 UA OB DIP 09/15/2013 52469 URINE DRUG SCREEN (IN-HOUSE ) 09/15/2013 68837 TSH 09/15/2013 25056 [facility] 09/15/2013 90105 HIV ([facility]) 09/15/2013 23789 RUBELLA ANTIBODY, IGG 09/15/2013 04049 ANTIBODY SCREEN (order) 09/15/2013 45294 BLOOD TYPE/Rh FACTOR 09/15/2013 47557 HEP B SURFACE ANTIGEN (STATE ) 09/15/2013 44461 CBC 09/15/2013 56712 UA LONG DIP 10/12/2013 25397 TRICHOMONAS (IN-HOUSE) 10/12/2013 22116 GC/CHLAM PROBE (STATE) 10/12/2013 11339 CULTURE UROGENITAL 10/15/2013 82922 ROUTINE VENIPUNCTURE 11/15/2013 59238 US OB - COMPLETE >14 WEEKS 11/15/2013 78691 UA OB DIP 11/15/2013 23727 GLUCOSE REYNA 1 HOUR 11/15/2013 18766 UA OB DIP 12/13/2013 56684 ROUTINE VENIPUNCTURE 01/09/2014 87989 GLUCOSE REYNA 3 HOUR 01/09/2014 67987 UA OB DIP 01/09/2014 07517 GLUCOSE REYNA 1 HOUR 01/10/2014 85066 CBC 01/10/2014 66594 UA OB DIP 01/23/2014 45136 UA OB DIP 02/06/2014 79155 ROUTINE VENIPUNCTURE 02/22/2014 01988 UA OB DIP 02/22/2014 59195 GLUCOSE FINGER STICK 02/22/2014 55431 VARICELLA ANTIBODY 02/23/2014 40490 UA OB DIP 03/01/2014 72471 OB - FOLLOW UP 03/02/2014 50013 CULTURE GROUP B STREP VAG 03/03/2014 43526 ROUTINE VENIPUNCTURE 03/13/20141999F BLOOD PRESSURE CHECK 03/13/2014 32987 UA OB DIP 03/13/2014 08402 GLUCOSE FINGER STICK 03/13/2014 3362671 GFR CALC (RESULT ONLY) 03/14/2014 52095 CMP 03/14/2014 80007 LDH 03/14/2014 39389 URIC ACID 03/14/2014 59873 CBC 03/14/2014 82641 URINE PROTEIN 24 HOUR 03/16/2014 2000F BLOOD PRESSURE CHECK 03/17/2014 38231 ROUTINE VENIPUNCTURE 05/17/2014 16273 XRAY LUMBAR SPINE 2 OR 3 VIEWS 05/17/2014 79905 CMP 05/17/2014 80384 CBC 05/17/2014 70624 XRAY ABDOMEN 2 VIEWS 07/04/2014 49349 US ABDOMINAL ULTRASOUND, COMPLETE 07/04/2014 18127RW DRAINAGE OF AMNIOTIC FL, THERAP FROM POC 02/10/2017 [id number] DELIVERY OF PRODUCTS OF CONCEPTION, EXTE 02/10/2017 [...] culture - 01/25/17 21:30 Bacterial urine culture [id number] NRG COLONY COUNT >100,000/ML NRG FTX;REPORTABLE PLUS, [...] culture - 02/07/17 00:50 Bacterial urine culture [id number] NRG COLONY COUNT >100,000/ML NRG FTX;REPORTABLE PLUS, [...] ABO+Rh group AP NRG Transfusion band number [id number] NRG Blood group antibody screen NEGATIVE NRG [...] blood basophil count (count/volume) 0.0 10*3/uL 0.0-0.1 Urine beta human chorionic gonadotropin (hCG) measurement - 03/09/18 10:00 Urine beta human chorionic gonadotropin (hCG) measurement NEGATIVE NEGATIVE Encounters ACCT No. Visit Date/Time Discharge Status Pt. Type Provider Facility Loc./Unit Complaint [id number] 07/04/2014 13:31:00 07/04/2014 23:59:59 [facility] Outpatient CRISTA ROSALES APRN [id number] 05/17/2014 13:50:00 05/17/2014 23:59:59 [facility] Outpatient CRISTA ROSALES APRN [id number] 04/26/2014 14:47:00 04/26/2014 23:59:59 CLS Outpatient SARAH JUNE APRN [id number] 03/17/2014 09:57:00 03/17/2014 23:59:59 CLS Outpatient TORRES DOESTEFANIA [id number] 03/13/2014 15:53:00 03/13/2014 23:59:59 CLS Outpatient TORRES DOESTEFANIA [id number] 02/22/2014 10:12:00 02/22/2014 23:59:59 CLS Outpatient TORRES DOESTEFANIA [id number] 02/06/2014 13:49:00 02/06/2014 23:59:59 CLS Outpatient TORRES DOESTEFANIA [id number] 01/23/2014 15:13:00 01/23/2014 23:59:59 CLS Outpatient TORRES DOESTEFANIA [id number] 01/09/2014 16:34:00 01/09/2014 23:59:59 CLS Outpatient TORRES DOESTEFANIA [id number] 12/13/2013 14:10:00 12/13/2013 23:59:59 CLS Outpatient TORRES DOESTEFANIA [id number] 12/13/2013 14:10:00 12/13/2013 23:59:59 CLS Outpatient TORRES DOESTEFANIA [id number] 11/15/2013 13:57:00 11/15/2013 23:59:59 CLS Outpatient TORRES DOESTEFANIA [id number] 11/15/2013 13:57:00 11/15/2013 23:59:59 CLS Outpatient TORRES DOESTEFANIA [id number] 10/12/2013 14:55:00 10/12/2013 23:59:59 CLS Outpatient SLADE SARAH GAUTAM [id number] 10/12/2013 14:55:00 10/12/2013 23:59:59 CLS Outpatient SLADESARAH KENDRICK APRN [id number] 09/15/2013 14:50:00 09/15/2013 23:59:59 CLS Outpatient SLADESARAH KENDRICK APRN [id number] 07/12/2013 08:51:00 07/12/2013 23:59:59 CLS Outpatient SARAH JUNE APRN [id number] 04/09/2013 13:20:00 04/09/2013 23:59:59 CLS Outpatient DEJAH STRAW HAT BRUSHERNATHALIESADA S [id number] 07/14/2016 13:05:00 Document Registration [id number] 07/10/2016 18:06:00 Document Registration [id number] 03/06/2016 08:58:00 Document Registration [id number] 07/11/2016 18:06:00 Document Registration [id number] 03/31/2018 06:09:00 03/31/2018 10:49:00 DIS Outpatient NALINI CMKEON DO [facility] PREOP BILIARY DYSKINESIA [id number] 03/18/2018 09:46:00 03/18/2018 23:59:59 CLS Outpatient NALINI MCKEON DO [facility] CARD CHEST PAIN,GERD [id number] 03/12/2018 07:07:00 03/12/2018 23:59:59 CLS Outpatient NALINI MCKEON DO [facility] RAD CHEST PAIN,GERD [id number] 03/09/2018 08:56:00 03/09/2018 11:30:00 DIS Outpatient NALINI MCKEON DO [facility] ENDO GERD [id number] 03/08/2018 09:15:00 03/08/2018 09:19:00 DIS Outpatient NALINI MCKEON DO [facility] PREOP EGD [id number] 02/24/2018 10:24:00 02/24/2018 23:59:59 CLS Outpatient BRENDA LALA [facility] CARD R42 DIZZINESS [id number] 10/05/2017 13:02:00 10/05/2017 23:59:59 CLS Outpatient CRISTA ROSALES SENIOR LINUX ADMINISTRATOR [facility] RAD R10.2 PELVIC PAIN [id number] 02/10/2017 06:57:00 02/12/2017 11:30:00 DIS Inpatient KIARA MAO MD [facility] LDRP INDUCTION [id number] 02/09/2017 13:41:00 02/09/2017 23:59:59 CLS Outpatient KIARA MAO MD [facility] RAD POSITION [id number] 02/07/2017 00:45:00 02/07/2017 02:33:00 DIS Outpatient PEPE MEEK MD [facility] WSo CONTRACTIONS [id number] 01/25/2017 21:03:00 01/25/2017 22:24:00 DIS Outpatient ANOOP HWANG MD [facility] WSo CONTRACTIONS [id number] 12/29/2016 09:49:00 12/29/2016 23:59:59 CLS Outpatient KIARA MAO MD [facility] RAD FUNDAL HEIGHT INCREASE [id number] 12/07/2016 16:52:00 12/07/2016 18:10:00 DIS Outpatient ANOOP HWANG MD [facility] WSo ABD PAIN/PRESSURE [id number] 10/09/2016 13:28:00 10/09/2016 23:59:59 CLS Outpatient KIARA MAO MD [facility] RAD EVAL SPINE F/U [id number] 09/18/2016 13:31:00 09/18/2016 23:59:59 CLS Outpatient KIARA MAO MD [facility] RAD SURVEY [id number] 07/17/2016 10:22:00 07/17/2016 23:59:59 CLS Outpatient KIARA MAO MD [facility] RAD NORMAL IN MULTIGRAVIDA [id number] 07/13/2016 23:34:00 07/14/2016 00:22:00 DIS Emergency ISIDRO ESQUEDA DO [facility] ER FAICAL PAIN EAR ACHE [id number] 06/01/2016 19:44:00 06/01/2016 20:02:00 DIS Emergency [place] LAN[place] STRAW HAT BRUSHER [facility] ER EAR ACHE [id number] 05/19/2016 10:30:00 05/19/2016 23:59:59 CLS Preadmit CARISSA CARRERO MD [facility] CARD CHEST PAIN [id number] 02/18/2016 10:30:00 05/18/2016 00:01:00 DIS Outpatient CARISSA CARRERO MD [facility] CARD CHEST PAIN [id number] 02/11/2016 22:18:00 02/11/2016 23:41:00 DIS Emergency SHANNON JASSO MD [facility] ER DECREASE IN URINATION [id number] 01/14/2016 13:37:00 01/14/2016 14:23:00 DIS Emergency AUDREY DE LOS SANTOS [facility] ER COUGH/CONGESTION [id number] 11/28/2015 15:02:00 11/28/2015 23:59:59 CLS Outpatient HWANG DO DANICA Natalia [facility] RAD AMENORRHEA [id number] 10/16/2015 06:11:00 10/16/2015 08:40:00 DIS Emergency SHANNON JASSO MD [facility] ER NUMB ON HEAD,SHAKES ALL OVER,KNEE PAIN [id number] 09/19/2015 06:53:00 09/19/2015 09:35:00 DIS Emergency KYLE ARCE MD [facility] ER LOWER ABD PAIN [id number] 09/04/2015 20:40:00 09/04/2015 21:08:00 DIS Emergency [place] APRN [facility] ER R HAND THUMB LAC [id number] 08/09/2015 11:58:00 08/09/2015 14:32:00 DIS Emergency [place] APRN [facility] ER SORE THROAT [id number] 04/06/2015 11:54:00 04/06/2015 23:59:59 CLS Outpatient 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 [facility] RAD PELVIC PAIN [id number] 03/12/2015 18:20:00 03/12/2015 23:23:00 DIS Emergency AUDREY DE LOS SANTOS [facility] ER [id number] 02/08/2015 08:08:00 02/08/2015 14:30:00 DIS Outpatient NALINI MCKEON DO [facility] [id number] 02/01/2015 14:28:00 02/01/2015 23:59:59 CLS Outpatient NALINI MCKEON DO [facility] PREOP [id number] 07/19/2014 08:41:00 07/19/2014 23:59:59 CLS Outpatient CRISTA ROSALES [facility] RAD [id number] 03/19/2014 00:35:00 03/21/2014 17:10:00 DIS Inpatient MELISSA SLOAN ESTEFANIA Meka [facility] WS [id number] 03/01/2014 11:59:00 03/01/2014 23:59:59 CLS Outpatient MELISSA SLOAN ESTEFANIA Meka [facility] RAD [id number] 04/01/2018 11:45:00 PEN Preadmit MCKEONNALINI HOWARD DO [facility] SDC BILIARY DYSKINESIA [id number] 01/30/2018 17:20:00 Document Registration [id number] 03/07/2016 07:06:00 Document Registration [id number] 07/13/2016 07:05:00 Document Registration [id number] 06/19/2016 07:06:00 Document Registration [id number] 10/21/2017 14:05:00 10/21/2017 23:59:59 CLS Outpatient MADL CRISTA GAUTAM [facility]
[2018-04-01] MEDS ORDERED: ceFAZolin 2 GM IV Premixed 50 ML IV ONE (10:30)
[2018-04-01] MEDS ORDERED: FAMOTIDINE 20MG/2ML IV (PEPCID) IVP ONE (10:30)
[2018-04-01] MEDS ORDERED: fentaNYL INJECTION 100 MCG/2 ML AMP ONE ×2 (10:34→12:17)
[2018-04-01] MEDS ORDERED: MIDAZOLAM 2 MG/2 ML (VERSED) VIAL ONE (10:34)
--- NOTE | 2018-04-01 10:37 | Progress Note-Pre Operative ---
Pre-Operative Progress Note H&P Reviewed The H&P was reviewed, patient examined and no changes noted. Date Seen by Provider: Apr 01, 2018 Time Seen by Provider: 10:37 Date H&P Reviewed: Apr 01, 2018 Time H&P Reviewed: 10:37 Pre-Operative Diagnosis: biliary dyskinesia NALINI MCKEON DO Apr 01, 2018 10:37
[2018-04-01] MEDS ORDERED: LIDOCAINE 1% INJ 20 ML 20 ML VIAL ONE (10:39)
[2018-04-01] MEDS ORDERED: BUPIVACAINE 0.25% 30 ML (SENSORCAINE) VIAL ONE (10:40)
[2018-04-01] MEDS ORDERED: DEXAMETHASONE 10 MG/ML (DECADRON) 1 ML VIAL ONE (10:44)
[2018-04-01] MEDS ORDERED: LIDOCAINE PF 2% 5 ML (XYLOCAINE) VIAL ONE (10:44)
[2018-04-01] MEDS ORDERED: proPOfol 200 MG/20 ML (DIPRIVAN) VIAL IV ONE (10:44)
[2018-04-01] MEDS ORDERED: ONDANSETRON 4 MG/2 ML (SDV) Z0FRAN ONE (10:44)
[2018-04-01] MEDS ORDERED: ROCURONIUM 10 MG/ML 5 ML SYRINGE IV ONE (10:44)
[2018-04-01] MEDS ORDERED: SEVOFLURANE (ULTANE) 15 ML INHAL SOLN ONE (10:44)
[2018-04-01] MEDS: LACTATED RINGERS 1,000 ML IV PRN ×2 (11:03→12:10)
[2018-04-01 11:27] VITALS: BP 138/61
[2018-04-01] MEDS ORDERED: NEOSTIGMINE 1 MG/ML 5 ML SYRINGE ONE (12:07)
[2018-04-01] MEDS ORDERED: GLYCOPYRROLATE 0.2 MG/ML (ROBINUL) 2 ML VIAL ONE (12:07)
--- NOTE | 2018-04-01 12:13 | Progress Note-Post Operative ---
Post-Operative Progess Note Surgeon (s)/Hide Selector (s) Surgeon NALINI MCKEON DO Hide Selector: Dr. Man Pre-Operative Diagnosis biliary dyskinesia Post-Operative Diagnosis same Procedure & Operative Findings Date of Procedure 04/01/18 Procedure Performed/Findings lap titus c ioc Anesthesia Type gen Estimated Blood Loss Estimated blood loss (mL): min Specimens/Packing Specimens Removed gallbladder NALINI MCKEON DO Apr 01, 2018 12:13
[2018-04-01] MEDS ORDERED: DOCU-143 PO (12:14)
[2018-04-01] MEDS ORDERED: ACHD5005 PO (12:14)
[2018-04-01] MEDS ORDERED: HYDROcodone/APAP 5 MG/325 MG (LORTAB) TAB PO PRN (12:15)
--- NOTE | 2018-04-01 12:16 | Discharge Inst-Simple/Standard ---
Discharge Inst-Standard Discharge Medications New, Converted or Re-Newed RX: RX on Chart Patient Instructions/Follow Up Plan of Care/Instructions/FU: 2 weeks Elvie Activity as Tolerated: Yes Discharge Diet: Regular Diet Other Inst to Patient Follow up Appt: Make appointment for 2 weeks. Instructions: No lifting greater than 10 pounds. No strenuous activity. May shower in 24 hours, no tub bath or soaking. Use incentive spirometer at home as directed. No Smoking Skin/Wound Care: You have special glue over incision it will fall off its own. Symptoms to Report: Appetite Changes, Extremity Discoloration, Numbness/Tingling, Swelling Increased , Bleeding Excessive, Eyesight Changes, Pain Increased, Urine Color Change, Constipation(Persistent), Fever over 101 degree F, Pain/Pressure in chest, Urinating Difficulty, Cough Up/Vomit Blood, Heart Beat Irreg/Pounding, Pain/ Pressure in jaw, Vaginal Bleeding Increase, Cramps in feet or legs, Lightheadedness, Pain/Pressure in shoulder, Diarrhea(Persistent), Memory Changes Suddenly, Questions/Concerns, Weight gain consecutive days, Dizziness/ Fainting, Nausea/Vomiting, Shortness of Breath, Weight gain over 2 pounds. If eyes or skin turn yellow notify physician. If questions or concerns contact your physician Or seek help at emergency department. NALINI MCKEON DO Apr 01, 2018 12:15
[2018-04-01] MEDS ORDERED: KETOROLAC 30 MG/ML VIAL ONE (12:27)
[2018-04-01] MEDS ORDERED: SUGAMMADEX 500 MG/5 ML VIAL (BRIDION) IV ONE (12:29)
[2018-04-01] MEDS ORDERED: HYDROmorphone 2 MG/ML VIAL (DILAUDID) ONE (12:33)
[2018-04-01] MEDS ORDERED: HYDROmorphone 2 MG/ML VIAL (DILAUDID) IV ONE (12:45)
[2018-04-01] MEDS ORDERED: morphine INJ 10 MG/ML 1ML (SYR OR VIAL) IVP ONE (12:45)
[2018-04-01] MEDS ORDERED: KETOROLAC 30 MG/ML VIAL IVP ONE (12:45)
[2018-04-01] MEDS ORDERED: ONDANSETRON 4 MG/2 ML (SDV) Z0FRAN IVP PRN (12:45)
--- NOTE | 2018-04-01 13:13 | Anesthesia-General Post-Op ---
General Patient Condition Mental Status/LOC: Same as Preop Cardiovascular: Satisfactory Nausea/Vomiting: Absent Respiratory: Satisfactory Pain: Controlled Complications: Absent Post Op Complications Complications None Follow Up Care/Instructions Patient Instructions None needed. Anesthesia/Patient Condition Patient Condition Patient is doing well, no complaints, stable vital signs, no apparent adverse anesthesia problems. No complications reported per nursing. ALEJANDRA SORTO CRNA Apr 01, 2018 13:13
--- NOTE | 2018-04-01 13:19 | OPERATIVE REPORT ---
DATE OF SERVICE: 04/01/2018 PREOPERATIVE DIAGNOSIS: Biliary dyskinesia. POSTOPERATIVE DIAGNOSIS: Biliary dyskinesia. PROCEDURE: Laparoscopic cholecystectomy with intraoperative cholangiogram. SURGEON: Nalini Bermeo DO PATIENT RELATIONS DIRECTOR: Dr. Man, assisted in retraction, dissection and closure. ANESTHESIA: General. ESTIMATED BLOOD LOSS: Minimal. COMPLICATIONS: None. INDICATIONS: The patient is a 27-year-old female, who was found to have biliary dyskinesia. She understands risks and benefits of procedure and wished to proceed with procedure. Consent was signed in the chart. PROCEDURE IN DETAIL: The patient was taken to the operating suite. She was prepped and draped in sterile fashion. Surgical pause was performed. Local anesthetic was infiltrated just above the umbilicus. A 11 blade scalpel was used to make a skin incision and cautery was used to dissect down the fascia, scored, grasped and elevated. The abdomen was then entered. An 0 Vicryl was placed in a [id number] fashion for closure at the end of the case. A balloon trocar was inserted into the abdomen and pneumoperitoneum was achieved. Under direct visualization of the laparoscope, a 5 mm trocar was then placed in the subxiphoid region and two 5 mm trocars were placed in the right upper quadrant. Gallbladder was grasped and elevated. There are some adhesions to the neck of the gallbladder. These were taken down with a [place] and cautery. The cystic duct and cystic artery were then dissected out. Clips were placed on the proximal and distal portion of the cystic artery and a clip was placed on the distal portion of the cystic duct. The duct was then partially transected. The Arrow catheter was inserted into the duct and cholangiogram was then performed. Contrast made its way into the duodenum. There were no filling defects. The catheter was removed. Clips were placed on the proximal portion of the cystic duct and the duct and artery were then transected. Hook cautery was used to dissect the gallbladder from the gallbladder fossa achieving hemostasis. It was placed in an Endobag and removed through the 12 mm trocar site. The abdomen was then irrigated with copious amounts of irrigation and suction. A small umbilical hernia was noted. The abdomen was then desufflated. Trocars were removed. The 0 Vicryl that was placed for the 12 mm fascial defect was then tied down closing the defect. The skin was then closed using 4-0 Monocryl in a subcuticular fashion. The abdomen was then washed and dried. Skin Affix was placed over the incisions and the patient was taken to the recovery room in stable condition. Job ID: [id number] DocumentID: [id number] Dictated Date: 04/01/2018 13:04:52 Optics Test Technician Date: 04/01/2018 13:18:08 Dictated By: NALINI BERMEO DO
[2018-04-01 13:25] VITALS: BP 122/62
[2018-04-01 13:55] VITALS: BP 111/61
[2018-04-01 14:25] VITALS: BP 116/71
[2018-04-01] MEDS ORDERED: ONDANSETRON 4 MG/2 ML (SDV) Z0FRAN IVP ONE (14:45)
[2018-04-01 16:00] VITALS: BP 116/76
--- NOTE | 2018-04-01 16:38 | Diagnostic Imaging Report ---
INDICATION: Abdominal pain. EXAMINATION: Fluoroscopy. FINDINGS: Fluoroscopic assistance was provided for Dr. Bermeo during his laparoscopic cholangiogram procedure. 18.2 seconds of fluoroscopy time was utilized. 30 spot films of the right upper quadrant were received from the OR. There are laparoscopic devices in place. There has been opacification of the common bile duct, via a cystic duct catheter. The common bile duct may be slightly dilated but there is no defect within the duct to suggest retained calculus. Contrast is seen extending into the small bowel. IMPRESSION: Fluoroscopic assistance was provided for Dr. Bermeo. Dictated by: Dictated on workstation # [id number]
[2018-04-01] MEDS ORDERED: HYDROcodone/APAP 5 MG/325 MG (LORTAB) TAB PO ONE (17:00)
[2018-04-01 17:20] VITALS: BP 116/76
== END 2018-04-01 17:20 | disposition home or self-care (01) ==
LOC: SDC 09:41
PROVIDERS: ATTEND Surgery
DX: K81.1 Chronic cholecystitis (principal); K82.8 Other specified diseases of gallbladder; K21.9 Gastro-esophageal reflux disease without esophagitis; E66.01 Morbid (severe) obesity due to excess calories; Z68.41 Body mass index [BMI] 40.0-44.9, adult; Z87.891 Personal history of nicotine dependence
CPT/HCPCS: 84703; 87081; 88304; 94664

== ENCOUNTER 2018-05-09 06:53 | Emergency (ER) | payer MEDICAID ==
[~2018-05-09] VITALS: Ht 162.6 cm; Wt 118.8 kg
[~2018-05-09 06:53] MED LIST changes: +METR-197 PO; -METR500T21 PO
--- OUTSIDE RECORDS SUMMARY | 2018-05-09 07:05 | XMS REPORT | Continuity of Care Document ---
Author Author [facility] Address Unknown Phone Unavailable Allergies Active Description Code Type Severity Reaction Onset Reported/Identified Relationship to Patient Clinical Status Yes No Known Drug Allergies [id number] Drug Allergy Unknown N/A 03/19/2014 Yes erythromycin base [id number] Drug Allergy Unknown reports that he 2015 Yes adhesive tape [id number] Drug Allergy Unknown HIVES 03/08/2018 Medications There is no data. Problems Date Dx Coded Attending Type Code Diagnosis Diagnosed By 04/09/2013 SADA POND APRN 461.9 SINUSITIS ACUTE 04/09/2013 SLADE CATHODE WASHER, SARAH A 461.9 SINUSITIS ACUTE 04/09/2013 SLADE CATHODE WASHER, SARAH A 461.9 SINUSITIS ACUTE 04/09/2013 SLADE CATHODE WASHER, SARAH A 461.9 SINUSITIS ACUTE 04/09/2013 SLADE CATHODE WASHER, SARAH A 461.9 SINUSITIS ACUTE 04/09/2013 TORRES [...] ESTEFANIA K 461.9 SINUSITIS ACUTE 04/09/2013 SLADE CATHODE WASHER, SARAH A 461.9 SINUSITIS ACUTE 04/09/2013 MADL CATHODE WASHER, CRISTA L 461.9 SINUSITIS ACUTE 04/09/2013 CONNIE GAUTAM, CRISTA L 461.9 SINUSITIS ACUTE 07/12/2013 SLADE GAUTAM, SARAH A V72.41 TEST NEGATIVE RESULT 07/12/2013 SLADE MONTESN, SARAH A V74.5 STD SCREEN 07/12/2013 SLADE MONTESN, SARAH A V76.2 CERVICAL CANCER SCREENING (PAP SMEAR) 07/12/2013 SLADE MONTESN, SARAH A V72.41 TEST NEGATIVE RESULT 07/12/2013 SLADE CATHODE WASHER, SARAH A V74.5 STD SCREEN 07/12/2013 SLADE [...] CERVICAL CANCER SCREENING (PAP SMEAR) 07/12/2013 SLADE CATHODE WASHER, SARAH A V72.41 TEST NEGATIVE RESULT 07/12/2013 SLADE CATHODE WASHER, SARAH A V74.5 STD SCREEN 07/12/2013 SLADE CATHODE WASHER, SARAH A V76.2 CERVICAL CANCER SCREENING (PAP SMEAR) 07/12/2013 MADL CATHODE WASHER, CRISTA L V72.41 TEST NEGATIVE RESULT 07/12/2013 MADL CATHODE WASHER, CRISTA L V74.5 STD SCREEN 07/12/2013 MADL CATHODE WASHER, CRISTA L V76.2 CERVICAL CANCER SCREENING (PAP [...] K V22.1 , NORMAL OTHER 09/15/2013 SLADE CATHODE WASHER, SARAH A V22.1 , NORMAL OTHER 09/15/2013 MADL CATHODE WASHER, CRISTA L V22.1 , NORMAL OTHER 09/15/2013 MADL CATHODE WASHER, CRISTA L V22.1 , NORMAL OTHER 11/15/2013 [...] ESTEFANIA K V77.1 DIABETES SCREENING 11/15/2013 SLADE CATHODE WASHER, SARAH A V77.1 DIABETES SCREENING 11/15/2013 MADL CATHODE WASHER, CRISTA L V77.1 DIABETES SCREENING 11/15/2013 MADL CATHODE WASHER, CRISTA L V77.1 DIABETES SCREENING 01/09/2014 TORRES DO, ESTEFANIA K V78.0 ANEMIA SCREENING 01/09/2014 TORRES DO, ESTEFANIA K V78.0 ANEMIA SCREENING 01/09/2014 TORRES DO, ESTEFANIA K V78.0 ANEMIA SCREENING 01/09/2014 TORRES DO, ESTEFANIA K V78.0 ANEMIA SCREENING 01/09/2014 TORRES DO, ESTEFANIA K V78.0 ANEMIA SCREENING 01/09/2014 TORRES DO, ESTEFANIA K V78.0 ANEMIA SCREENING 01/09/2014 SLADE CATHODE WASHER, SARAH A V78.0 ANEMIA SCREENING 01/09/2014 MADL CATHODE WASHER, CRISTA L V78.0 ANEMIA SCREENING 01/09/2014 MADL CATHODE WASHER, CRISTA L V78.0 ANEMIA SCREENING 02/22/2014 TORRES DO, ESTEFANIA K 649.60 UTERINE SIZE DATE DISCREPANCY - LGA 02/22/2014 TORRES DO, ESTEFANIA K 649.60 UTERINE SIZE DATE DISCREPANCY - LGA 02/22/2014 TORRES DO, ESTEFANIA K 649.60 UTERINE SIZE DATE DISCREPANCY - LGA 02/22/2014 SHANEL JUNE APRNIDI A 649.60 UTERINE SIZE DATE DISCREPANCY - LGA 02/22/2014 MADL CATHODE WASHER, CRISTA L 649.60 UTERINE SIZE DATE DISCREPANCY - LGA 02/22/2014 MADL CATHODE WASHER, CRISTA L 649.60 UTERINE SIZE DATE DISCREPANCY - LGA 03/01/2014 TORRES DO, ESTEFANIA K V28.6 GBS SCREENING 03/01/2014 TORRES DO, ESTEFANIA K V28.6 GBS SCREENING 03/01/2014 TORRES DO, ESTEFANIA K V28.6 GBS SCREENING 03/01/2014 SHANEL JUNE APRNIDI A V28.6 GBS SCREENING 03/01/2014 MADL CATHODE WASHER, CRISTA L V28.6 GBS SCREENING 03/01/2014 MADL CATHODE WASHER, CRISTA L V28.6 GBS SCREENING 03/13/2014 TORRES DO ESTEFANIA K 796.2 ELEVATED BLOOD PRESSURE READING WITHOUT DIAGNOSIS OF HYPERTENSION 03/13/2014 TORRES DO ESTEFANIA K 796.2 ELEVATED BLOOD PRESSURE READING WITHOUT DIAGNOSIS OF HYPERTENSION 03/13/2014 SHANEL JUNE APRNIDI A 796.2 ELEVATED BLOOD PRESSURE READING WITHOUT DIAGNOSIS OF HYPERTENSION 03/13/2014 MADL CATHODE WASHERJEANETTE RaymondCRISTA L 796.2 ELEVATED BLOOD PRESSURE READING WITHOUT DIAGNOSIS OF HYPERTENSION 03/13/2014 MADL CATHODE WASHER, CRISTA L 796.2 ELEVATED BLOOD PRESSURE READING WITHOUT DIAGNOSIS OF HYPERTENSION 03/21/2014 ESTEFANIA TORRES DO Ot 642.31 03/21/2014 ESTEFANIA TORRES DO Ot 656.61 03/21/2014 ESTEFANIA TORRES DO Ot V06.1 03/21/2014 ESTEFANIA TORRES DO Ot V27.0 04/26/2014 SLADE CATHODE WASHER, SARAH A 455.6 UNSPECIFIED HEMORRHOIDS WITHOUT COMPLICATION 04/26/2014 SLADE CATHODE WASHER, SARAH A V04.81 FLU SHOT 04/26/2014 SLADE CATHODE WASHER, SARAH A V24.2 F/U, ROUTINE 04/26/2014 MADL CATHODE WASHER, CRISTA L 455.6 UNSPECIFIED HEMORRHOIDS WITHOUT COMPLICATION 04/26/2014 MADL CATHODE WASHER, CRISTA L V04.81 FLU SHOT 04/26/2014 MADL CATHODE WASHER, CRISTA L V24.2 F/U, ROUTINE 04/26/2014 MADL CATHODE WASHER, CRISTA L 455.6 UNSPECIFIED HEMORRHOIDS WITHOUT COMPLICATION 04/26/2014 MADL CATHODE WASHER, CRISTA L V04.81 FLU SHOT 04/26/2014 MADL CATHODE WASHER, CRISTA L V24.2 F/U, ROUTINE 05/17/2014 MADL CATHODE WASHER, CRISTA L 724.2 BACK PAIN, LOWER 05/17/2014 MADL CATHODE WASHER, CRISTA L 724.2 BACK PAIN, LOWER 07/04/2014 MADL CATHODE WASHER, CRISTA L 727.49 OTHER GANGLION AND CYST OF SYNOVIUM TENDON AND BURSA 07/04/2014 MADL CATHODE WASHER, CRISTA L 789.00 ABDOMINAL PAIN UNSPECIFIED SITE 07/10/2014 MADL CATHODE WASHER, CRISTA L 789.1 HEPATOMEGALY 07/21/2014 ESTEFANIA TORRES DO K Ot 649.63 07/21/2014 ESTEFANIA TORRES DO K Ot 656.63 07/21/2014 MADL, CRISTA L AUTOMATIC RIVETING MACHINE OPERATOR Ot 789.1 08/01/2014 MADL, CRISTA L AUTOMATIC RIVETING MACHINE OPERATOR Ot 789.1 02/05/2015 MCKEON NALINI SLOAN Ot 727.43 02/05/2015 COMSTOCK NALINI SLOAN Ot V72.84 02/08/2015 MELISSA SLOANBRIDGETTA Meka Ot 649.63 02/08/2015 MELISSA SLOANESTEFANIA Ot 656.63 02/08/2015 CRISTA ROSALES AUTOMATIC RIVETING MACHINE OPERATOR Ot 789.1 02/08/2015 COMSTOCK NALINI SLOAN D Ot 727.43 02/08/2015 COMSTOCK NALINI SLOAN Ot V72.84 02/08/2015 [facility] NALINI D Ot 727.43 03/12/2015 AUDREY DE LOS SANTOS Ot 626.2 03/12/2015 AUDREY DE LOS SANTOS Ot 789.00 03/12/2015 AUDREY DE LOS SANTOS Ot E000.8 03/12/2015 AUDREY DE LOS SANTOS Ot E968.8 04/06/2015 TORRES ESTEFANIA SLOAN Ot 649.63 04/06/2015 MELISSA SLOANESTEFANIA Ot 656.63 04/06/2015 CRISTA ROSALES AUTOMATIC RIVETING MACHINE OPERATOR Ot 789.1 04/06/2015 [facility] 727.43 04/06[facility] Ot V72.84 04/19/2015 CRISTA ROSALES AUTOMATIC RIVETING MACHINE OPERATOR Ot R10.2 08/09/2015 LAKE LANDA APRN Ot [...] HOWARD DO Ot V72.84 09/05/2015 LA[place] LAN[place] CATHODE WASHER Ot S61.011A 09/05/2015 LA[place] LAN[place] CATHODE WASHER Ot W26.0XXA 09/05/2015 [place] CATHODE WASHER Ot Y92.511 09/05/2015 [place] CATHODE WASHER Ot Y99.0 09/05/2015 [place] CATHODE WASHER Ot Z23 09/19/2015 YAZMIN CORTES, KYLE Pablo [...] ABNORMAL FINDINGS IN URINE 02/18/2016 CRISTA ROSALES AUTOMATIC RIVETING MACHINE OPERATOR Ot R10.2 PELVIC AND PERINEAL PAIN 02/18/2016 DANICA HWANG DO Ot N91.2 AMENORRHEA, UNSPECIFIED 02/20/2016 CARISSA CARRERO MD Ot R07.9 CHEST PAIN, UNSPECIFIED 03/06/2016 CARISSA CARRERO MD Ot R07.9 CHEST PAIN, UNSPECIFIED 05/18/2016 CARISSA CARRERO MD Ot R07.9 CHEST PAIN, UNSPECIFIED 06/01/2016 [place] CATHODE WASHER Ot H92.02 OTALGIA, LEFT EAR 06/03/2016 [place] CATHODE WASHER Ot H92.02 OTALGIA, LEFT EAR 06/03/2016 CRISTA ROSALES AUTOMATIC RIVETING MACHINE OPERATOR Ot R10.2 PELVIC AND PERINEAL PAIN 06/03/2016 [...] 8 WEEKS GESTATION OF 07/17/2016 CRISTA ROSALES AUTOMATIC RIVETING MACHINE OPERATOR Ot R10.2 PELVIC AND PERINEAL PAIN 07/17/2016 [...] Ot O26.93 RELATED CONDITIONS, UNSPECIFIE 02/07/2017 PEPE EMEK MD Ot R10.9 UNSPECIFIED ABDOMINAL PAIN 02/07/2017 [...] GESTATION OF NOT SPEC 10/05/2017 MADCRISTA Ventura AUTOMATIC RIVETING MACHINE OPERATOR Ot R10.2 PELVIC AND PERINEAL PAIN 10/05/2017 [...] OF NOT SPEC 10/06/2017 MADL, CRISTA L AUTOMATIC RIVETING MACHINE OPERATOR Ot N83.202 UNSPECIFIED OVARIAN CYST, LEFT SIDE 10/22/2017 MADL, CRISTA L AUTOMATIC RIVETING MACHINE OPERATOR Ot N83.202 UNSPECIFIED OVARIAN CYST, LEFT SIDE [...] K29.70 GASTRITIS, UNSPECIFIED, WITHOUT BLEEDING 03/09/2018 NALINI MCKOEN DO Ot Z68.41 BODY MASS INDEX (BMI) [...] BODY MASS INDEX (BMI) 40.0-44.9, ADULT 03/12/2018 RCISTA ROSALES AUTOMATIC RIVETING MACHINE OPERATOR Ot R10.2 PELVIC AND PERINEAL PAIN 03/12/2018 [...] GESTATION OF NOT SPEC 03/12/2018 CRISTA ROSALES AUTOMATIC RIVETING MACHINE OPERATOR Ot N83.202 UNSPECIFIED OVARIAN CYST, LEFT SIDE 03/12/2018 BRENDA LALA Ot E78.5 HYPERLIPIDEMIA, UNSPECIFIED 03/12/2018 WILSON LALAJULIO C Ackerman Ot R00.2 PALPITATIONS 03/12/2018 ZORAN CREWS, BRENDA K Ot R06.00 DYSPNEA, UNSPECIFIED 03/12/2018 [...] GASTRITIS, UNSPECIFIED, WITHOUT BLEEDING 04/01/2018 NALINI MCKEON DO Ot Z68.41 BODY MASS INDEX (BMI) 40.0-44.9, ADULT 04/01/2018 NALINI MCKEON DO Ot Z01.818 ENCOUNTER FOR OTHER PREPROCEDURAL EXAMIN 04/01/2018 NALINI MCKEON DO Ot E66.01 MORBID (SEVERE) OBESITY DUE TO EXCESS CA 04/01/2018 NALINI MCKEON DO Ot K21.9 GASTRO-ESOPHAGEAL REFLUX DISEASE WITHOUT 04/01/2018 NALINI MCKEON DO Ot K81.1 CHRONIC CHOLECYSTITIS 04/01/2018 NALINI MCKEON DO Ot K82.8 OTHER SPECIFIED DISEASES OF GALLBLADDER 04/01/2018 NALINI MCKEON DO Ot Z68.41 BODY MASS INDEX (BMI) 40.0-44.9, ADULT 04/01/2018 NALINI MCKEON DO Ot Z87.891 PERSONAL HISTORY OF NICOTINE DEPENDENCE 04/08/2018 NALINI MCKEON DO Ot E66.01 MORBID (SEVERE) OBESITY DUE TO EXCESS CA 04/08/2018 NALINI MCKEON DO Ot K21.9 GASTRO-ESOPHAGEAL REFLUX DISEASE WITHOUT 04/08/2018 NALINI MCKEON DO Ot K81.1 CHRONIC CHOLECYSTITIS 04/08/2018 NALINI MCKEON DO Ot K82.8 OTHER SPECIFIED DISEASES OF GALLBLADDER 04/08/2018 NALINI MCKEON DO Ot Z68.41 BODY MASS INDEX (BMI) 40.0-44.9, ADULT 04/08/2018 NALINI MCKEON DO Ot Z87.891 PERSONAL HISTORY OF NICOTINE DEPENDENCE Procedures Code [place] [address] [facility] 07/12/2013 65160 PAP SMEAR 07/12/2013 Q0091 PAP SMEAR OBTAIN SMEAR 07/12/2013 95539 TEST, URINE (IN- HOUSE) 07/12/2013 12586 TRICHOMONAS (IN-HOUSE) 07/12/2013 80144 CULTURE UROGENITAL 07/14/2013 25893 TEST, URINE (IN- HOUSE) 09/12/2013 13174 ROUTINE VENIPUNCTURE 09/15/2013 26193 UA OB DIP 09/15/2013 12791 URINE DRUG SCREEN (IN-HOUSE ) 09/15/2013 03401 TSH 09/15/2013 08075 SYPHILLIS-[facility] 09/15/2013 20073 HIV ([facility]) 09/15/2013 05647 RUBELLA ANTIBODY, IGG 09/15/2013 01531 ANTIBODY SCREEN (order) 09/15/2013 56352 BLOOD TYPE/Rh FACTOR 09/15/2013 11688 HEP B SURFACE ANTIGEN (STATE ) 09/15/2013 36600 CBC 09/15/2013 06268 UA LONG DIP 10/12/2013 79908 TRICHOMONAS (IN-HOUSE) 10/12/2013 11532 GC/CHLAM PROBE ([facility]) 10/12/2013 64008 CULTURE UROGENITAL 10/15/2013 01596 ROUTINE VENIPUNCTURE 11/15/2013 34928 US OB - COMPLETE >14 WEEKS 11/15/2013 31254 UA OB DIP 11/15/2013 11806 GLUCOSE REYNA 1 HOUR 11/15/2013 46458 UA OB DIP 12/13/2013 82065 ROUTINE VENIPUNCTURE 01/09/2014 38432 GLUCOSE REYNA 3 HOUR 01/09/2014 64598 UA OB DIP 01/09/2014 19278 GLUCOSE REYNA 1 HOUR 01/10/2014 54082 CBC 01/10/2014 92261 UA OB DIP 01/23/2014 22390 UA OB DIP 02/06/2014 70838 ROUTINE VENIPUNCTURE 02/22/2014 31785 UA OB DIP 02/22/2014 92733 GLUCOSE FINGER STICK 02/22/2014 85754 VARICELLA ANTIBODY 02/23/2014 34415 UA OB DIP 03/01/2014 43402 US OB - FOLLOW UP 03/02/2014 97830 CULTURE GROUP B STREP VAG 03/03/2014 53333 ROUTINE VENIPUNCTURE 03/13/2014 2000F BLOOD PRESSURE CHECK 03/13/2014 42745 UA OB DIP 03/13/2014 98314 GLUCOSE FINGER STICK 03/13/2014 2816498 GFR CALC (RESULT ONLY) 03/14/2014 46892 CMP 03/14/2014 83733 LDH 03/14/2014 68105 URIC ACID 03/14/2014 23213 CBC 03/14/2014 26902 URINE PROTEIN 24 HOUR 03/16/2014 2000F BLOOD PRESSURE CHECK 03/17/2014 14304 ROUTINE VENIPUNCTURE 05/17/2014 91842 XRAY LUMBAR SPINE 2 OR 3 VIEWS 05/17/2014 57505 CMP 05/17/2014 27918 CBC 05/17/2014 94262 XRAY ABDOMEN 2 VIEWS 07/04/2014 38307 US ABDOMINAL ULTRASOUND, COMPLETE 07/04/2014 22438OP DRAINAGE OF AMNIOTIC FL, THERAP FROM POC 02/10/2017 94I9GOA DELIVERY OF PRODUCTS OF CONCEPTION, EXTE 02/10/2017 [...] culture - 01/25/17 21:30 Bacterial urine culture [id number] NRG COLONY COUNT >100,000/ML NRG FTX;REPORTABLE PLUS, [...] culture - 02/07/17 00:50 Bacterial urine culture [id number] NRG COLONY COUNT >100,000/ML NRG FTX;REPORTABLE PLUS, [...] ABO+Rh group AP NRG Transfusion band number [id number] NR Blood group antibody screen NEGATIVE NR Complete blood count (CBC) with automated [...] human chorionic gonadotropin (hCG) measurement NEGATIVE NEGATIVE Urine beta human chorionic gonadotropin (hCG) measurement - 04/01/18 09:55 Urine beta human chorionic gonadotropin (hCG) measurement NEGATIVE NEGATIVE Methicillin resistant Staphylococcus aureus (MRSA) screening culture - 10:15 Methicillin resistant Staphylococcus aureus (MRSA) screening culture NEG NRG Encounters ACCT No. Visit Date/Time Discharge Status Pt. Type Provider Facility Loc./Unit Complaint [id number] 07/04/2014 13:31:00 07/04/2014 23:59:59 CLS Outpatient CRISTA ROSALES APRN [id number] 05/17/2014 13:50:00 05/17/2014 23:59:59 CLS Outpatient CRISTA ROSALES APRN [id number] 04/26/2014 14:47:00 04/26/2014 23:59:59 CLS Outpatient SARAH JUNE APRN Angelica [id number] 03/17/2014 09:57:00 03/17/2014 23:59:59 CLS Outpatient ESTEFANIA TORRES DO [id number] 03/13/2014 15:53:00 03/13/2014 23:59:59 CLS Outpatient ESTEFANIA TORRES DO [id number] 02/22/2014 10:12:00 02/22/2014 23:59:59 CLS Outpatient ESTEFANIA TORRES DO [id number] 02/06/2014 13:49:00 02/06/2014 23:59:59 CLS Outpatient ESTEFANIA TORRES DO [id number] 01/23/2014 15:13:00 01/23/2014 23:59:59 CLS Outpatient ESTEFANIA TORRES DO [id number] 01/09/2014 16:34:00 01/09/2014 23:59:59 CLS Outpatient MELISSA DOESTEFANIA [id number] 12/13/2013 14:10:00 12/13/2013 23:59:59 CLS Outpatient ESTEFANIA TORRES DO [id number] 12/13/2013 14:10:00 12/13/2013 23:59:59 CLS Outpatient MELISSA DOESTEFANIA [id number] 11/15/2013 13:57:00 11/15/2013 23:59:59 CLS Outpatient TORRES DOESTEFANIA [id number] 11/15/2013 13:57:00 11/15/2013 23:59:59 CLS Outpatient MELISSA DOESTEFANIA [id number] 10/12/2013 14:55:00 10/12/2013 23:59:59 CLS Outpatient SLADESARAH Raymond APRN [id number] 10/12/2013 14:55:00 10/12/2013 23:59:59 CLS Outpatient SLADESARAH Raymond APRN A [id number] 09/15/2013 14:50:00 09/15/2013 23:59:59 CLS Outpatient SLADESARAH Raymond APRN [id number] 07/12/2013 08:51:00 07/12/2013 23:59:59 CLS Outpatient SLADESARAH Raymond APRN [id number] 04/09/2013 13:20:00 04/09/2013 23:59:59 CLS Outpatient SADA POND APRN [id number] 07/14/2016 13:05:00 Document Registration [id number] 07/10/2016 18:06:00 Document Registration [id number] 03/06/2016 08:58:00 Document Registration [id number] 07/11/2016 18:06:00 Document Registration [id number] 04/01/2018 09:41:00 04/01/2018 17:20:00 DIS Outpatient NALINI MCKEON DO [facility] SDC BILIARY DYSKINESIA [id number] 03/31/2018 06:09:00 03/31/2018 10:49:00 DIS Outpatient NALINI MCKEON DO [facility] PREOP BILIARY DYSKINESIA [id number] 03/18/2018 09:46:00 03/18/2018 23:59:59 CLS Outpatient LINDA SLOAN NALINI D [facility] CARD CHEST PAIN,GERD [id number] 03/12/2018 07:07:00 03/12/2018 23:59:59 CLS Outpatient MCKEON DO NALINI D [facility] RAD CHEST PAIN,GERD [id number] 03/09/2018 08:56:00 03/09/2018 11:30:00 DIS Outpatient LINDA SLOANNALINI [facility] ENDO GERD [id number] 03/08/2018 09:15:00 03/08/2018 09:19:00 DIS Outpatient NALINI MCKEON DO D [facility] PREOP EGD [id number] 02/24/2018 10:24:00 02/24/2018 23:59:59 CLS Outpatient BRENDA LALA [facility] CARD R42 DIZZINESS [id number] 10/05/2017 13:02:00 10/05/2017 23:59:59 CLS Outpatient MADLCRISTA AUTOMATIC RIVETING MACHINE OPERATOR [facility] RAD R10.2 PELVIC PAIN [id number] 02/10/2017 06:57:00 02/12/2017 11:30:00 DIS Inpatient KIARA MAO MD [facility] LDRP INDUCTION [id number] 02/09/2017 13:41:00 02/09/2017 23:59:59 CLS Outpatient KIARA MAO MD [facility] RAD POSITION [id number] 02/07/2017 00:45:00 02/07/2017 02:33:00 DIS Outpatient PEPE MEEK MD [facility] WSo CONTRACTIONS [id number] 01/25/2017 21:03:00 01/25/2017 22:24:00 DIS Outpatient ANOOP HWANG MD [facility] WSo CONTRACTIONS [id number] 12/29/2016 09:49:00 12/29/2016 23:59:59 CLS Outpatient KIARA MAO MD [facility] RAD FUNDAL HEIGHT INCREASE [id number] 12/07/2016 16:52:00 12/07/2016 18:10:00 DIS Outpatient ANOOP HWANG MD [facility] WSo ABD PAIN/PRESSURE [id number] 10/09/2016 13:28:00 10/09/2016 23:59:59 CLS Outpatient KIARA MAO MD [facility] RAD EVAL SPINE F/U [id number] 09/18/2016 13:31:00 09/18/2016 23:59:59 CLS Outpatient KIARA MAO MD [facility] RAD SURVEY [id number] 07/17/2016 10:22:00 07/17/2016 23:59:59 CLS Outpatient KIARA MAO MD [facility] RAD NORMAL IN MULTIGRAVIDA [id number] 07/13/2016 23:34:00 07/14/2016 00:22:00 DIS Emergency ISIDRO ESQUEDA DO [facility] ER FAICAL PAIN EAR ACHE [id number] 06/01/2016 19:44:00 06/01/2016 20:02:00 DIS Emergency LAKE LANDA APRN [facility] ER EAR ACHE [id number] 05/19/2016 10:30:00 05/19/2016 23:59:59 CLS Preadmit CARISSA CARRERO MD [facility] CARD CHEST PAIN [id number] 02/18/2016 10:30:00 05/18/2016 00:01:00 DIS Outpatient CARISSA CARRERO MD [facility] CARD CHEST PAIN [id number] 02/11/2016 22:18:00 02/11/2016 23:41:00 DIS Emergency SHANNON JASSO MD [facility] ER DECREASE IN URINATION [id number] 01/14/2016 13:37:00 01/14/2016 14:23:00 DIS Emergency AUDREY DE LOS SANTOS [facility] ER COUGH/CONGESTION [id number] 11/28/2015 15:02:00 11/28/2015 23:59:59 CLS Outpatient DANICA HWANG DO [facility] RAD AMENORRHEA [id number] 10/16/2015 06:11:00 10/16/2015 08:40:00 DIS Emergency SHANNON JASSO MD [facility] ER NUMB ON HEAD,SHAKES ALL OVER,KNEE PAIN [id number] 09/19/2015 06:53:00 09/19/2015 09:35:00 DIS Emergency KYLE ARCE MD [facility] ER LOWER ABD PAIN [id number] 09/04/2015 20:40:00 09/04/2015 21:08:00 DIS Emergency LA[place] LANDA APRN [facility] ER R HAND THUMB LAC [id number] 08/09/2015 11:58:00 08/09/2015 14:32:00 DIS Emergency LA[place] LANDA APRN [facility] ER SORE THROAT [id number] 04/06/2015 11:54:00 04/06/2015 23:59:59 CLS Outpatient MADL, CRISTA L AUTOMATIC RIVETING MACHINE OPERATOR [facility] RAD PELVIC PAIN [id number] 03/12/2015 18:20:00 03/12/2015 23:23:00 DIS Emergency AUDREY DE LOS SANTOS [facility] ER [id number] 02/08/2015 08:08:00 02/08/2015 14:30:00 DIS Outpatient NALINI MCKEON DO [facility] SDC [id number] 02/01/2015 14:28:00 02/01/2015 23:59:59 CLS Outpatient NALINI MCKEON DO [facility] PREOP [id number] 07/19/2014 08:41:00 07/19/2014 23:59:59 CLS Outpatient MADL, CRISTA L AUTOMATIC RIVETING MACHINE OPERATOR [facility] RAD [id number] 03/19/2014 00:35:00 03/21/2014 17:10:00 DIS Inpatient ESTEFANIA TORRES DO [facility] WS [id number] 03/01/2014 11:59:00 03/01/2014 23:59:59 CLS Outpatient MELISSA SLOAN ESTEFANIA Ackerman [facility] [id number] 01/30/2018 17:20:00 Document Registration [id number] 03/07/2016 07:06:00 Document Registration [id number] 07/13/2016 07:05:00 Document Registration [id number] 06/19/2016 07:06:00 Document Registration [id number] 10/21/2017 14:05:00 10/21/2017 23:59:59 CLS Outpatient [facility]
[2018-05-09 07:20] LABS: BILIRUBIN,URINE NEGATIVE (NEGATIVE); CLARITY,URINE VERY CLOUDY; COLOR,URINE YELLOW; GLUCOSE, URINE (UA) NEGATIVE (NEGATIVE); KETONES,URINE NEGATIVE (NEGATIVE); LEUKOCYTE ESTERASE ,URINE 3+ (NEGATIVE); NITRITE,URINE NEGATIVE (NEGATIVE); PH,URINE 5 (5-9); PROTEIN,URINE 3+ (NEGATIVE); UROBILINOGEN,URINE NORMAL (NORMAL)
[2018-05-09] MEDS ORDERED: PHENAZOPYRIDINE 100 MG (PYRIDIUM) TABLET PO STA (07:33)
[2018-05-09] MEDS ORDERED: IBUPROFEN 800 MG (MOTRIN) TAB PO STA (07:33)
[2018-05-09] MEDS ORDERED: PHENAZOPYRIDINE 100 MG (PYRIDIUM) TABLET ONE (07:34)
[2018-05-09] MEDS ORDERED: IBUPROFEN 800 MG (MOTRIN) TAB PO ONE (07:34)
[2018-05-09 07:35] LABS: BACTERIA,URINE MODERATE /HPF; RBC,URINE TNTC /HPF; SQUAMOUS EPITHELIAL CELL,UR RARE /HPF; WBC,URINE TNTC /HPF; YEAST,URINE MODERATE /HPF
--- NOTE | 2018-05-09 07:35 | ED GU-Female ---
General Chief Complaint: -Female Stated Complaint: UTI Nursing Triage Note: PT CO OF LOWER ABD PAIN STATES FEELS LIKE MAYBE UTI STARTED THIS AM Nursing Sepsis Screen: No Definite Risk Source: patient Exam Limitations: no limitations History of Present Illness Date Seen by Provider: May 09, 2018 Time Seen by Provider: 07:23 Initial Comments Woke up at 5 a.m. this morning with urinary pain. States that she went to the bathroom but then immediately felt like she had to go again and this repeated several times. Ultimately she presented to the emergency department for this. Denies nausea, vomiting or fevers. Denies abdominal pain. She has not taken anything for the pain or discomfort. Timing/Duration: this morning, getting worse Severity/Quality: mild, moderate, aching Location: urethral Radiation: none Activities at Onset: none Sexual [place] History: less than 2 months ago Associated Symptoms: dysuria; No fever/chills, No lower back pain, No nausea/ vomiting; urinary frequency Allergies and Home Medications Allergies Coded Allergies: adhesive tape (Verified Allergy, Unknown, HIVES, 03/08/18) Home Medications Cephalexin 500 Mg Tablet, 500 MG PO BID Prescribed by: SHANNON JASSO on 05/09/18 0743 Pantoprazole Sodium 40 Mg Tablet.dr, 40 MG PO DAILY, (Reported) Patient Home Medication List Home Medication List Reviewed: Yes Review of Systems Review of Systems Constitutional: see HPI; No chills, No fever Respiratory: no symptoms reported Cardiovascular: no symptoms reported Gastrointestinal: no symptoms reported, see HPI Genitourinary: see HPI Musculoskeletal: no symptoms reported Past Kppzgog-Lqpkav-Ksuqmq Hx Past Med/Social Hx: Reviewed Nursing Past Med/Soc Hx Patient Social History Alcohol Use: Denies Use Recreational Drug Use: No Smoking Status: Former Smoker Type Used: Cigarettes Former Smoker, Quit: Mar 22, 2016 Recent Foreign Travel: No Contact w/Someone Who Travel: No Recent Infectious Disease Expo: No Recent Hopitalizations: No Immunizations Up To Date Tetanus Booster (TDap): Less than 5yrs PED Vaccines UTD: Yes Seasonal Allergies Seasonal Allergies: No Past Medical History Surgeries: Yes (ganglion cyst on wrist ) Appendectomy, Orthopedic Respiratory: No Cardiac: No High Cholesterol Neurological: Yes Headaches /Migraines : No (PERIOD LAST MONTH TAKES BC) Reproductive Disorders: No Female Reproductive Disorders: Menstrual Problems Genitourinary: No Gastrointestinal: Yes (lactose intolerance) Gastroesophageal Reflux, Gall Bladder Disease Musculoskeletal: No Endocrine: No HEENT: No Cancer: No Psychosocial: No Integumentary: No Blood Disorders: No Adverse Reaction/Blood Tranf: No Family Medical History Reviewed Nursing Family Hx Patient reports no known family medical history. No Pertinent Family Hx Physical Exam Vital Signs Vital Signs - First Documented 05/09/18 07:05 Temp 97.5 Pulse 78 Resp 18 B/P (MAP) 130/70 (90) Pulse Ox 100 Capillary Refill : Less Than 3 Seconds Height, Weight, BMI Height: 5'4.00" Weight: 262lbs. 0.0oz. [id number]; 41.6 BMI Method:Stated General Appearance: WD/WN, no apparent distress, obese Cardiovascular: regular rate, rhythm, no murmur Respiratory: lungs clear, normal breath sounds Gastrointestinal: non tender, soft Neurologic/Psychiatric: alert, oriented x 3 Progress/Results/Core Measures Suspected Sepsis Recent Fever Within 48 Hours: No Infection Criteria Present: None New/Unexplained Altered Menta: No Sepsis Screen: No Definite Risk SIRS Temperature:97.5 Pulse: 78 Respiratory Rate: 18 Blood Pressure 130 /70 Mean: 90 Results/Orders Lab Results Laboratory Tests Test 05/09/18 07:05 Range/Units Urine Color YELLOW Urine Clarity VERY CLOUDY H Urine pH 5 5-9 Urine Specific [place] 1.020 1.016-1.022 Urine Protein 3+ H NEGATIVE Urine Glucose (UA) NEGATIVE NEGATIVE Urine Ketones NEGATIVE NEGATIVE Urine Nitrite NEGATIVE NEGATIVE Urine Bilirubin NEGATIVE NEGATIVE Urine Urobilinogen NORMAL NORMAL MG/DL Urine Leukocyte Esterase 3+ H NEGATIVE Urine RBC (Auto) 5+ H NEGATIVE Urine RBC TNTC H /HPF Urine WBC TNTC H /HPF Urine Squamous Epithelial Cells RARE /HPF Urine Crystals NONE /LPF Urine Bacteria MODERATE H /HPF Urine Casts NONE /LPF Urine Mucus NEGATIVE /LPF Urine Yeast MODERATE H /HPF Urine Culture Indicated YES Urine Test NEGATIVE NEGATIVE My Orders Orders - SHANNON JASSO MD Ua Culture If Indicated (05/09/18 07:01) Urine Bedside (05/09/18 07:01) Ibuprofen Tablet (Motrin Tablet) (05/09/18 07:33) Phenazopyridine Tablet (Pyridium Tablet) (05/09/18 07:33) Hcg,Qualitative Urine (05/09/18 07:35) Urine Culture (05/09/18 07:05) Phenazopyridine Tablet (Pyridium Tablet) (05/09/18 07:34) Ibuprofen Tablet (Motrin Tablet) (05/09/18 07:34) Cephalexin Capsule (Keflex Capsule) (05/09/18 07:40) Fluconazole Tablet (Ed Only) (Diflucan T (05/09/18 07:40) Vital Signs/I&O 05/09/18 07:05 Temp 97.5 Pulse 78 Resp 18 B/P (MAP) 130/70 (90) Pulse Ox 100 Capillary Refill : Less Than 3 Seconds Blood Pressure Mean: 90 Progress Note : Progress Note Seen and evaluated. UA and test ordered. Ibuprofen 800 mg by mouth and Pyridium 100 mg by mouth ordered. Monitor patient. 0738: Patient's infection noted as well as UTI. We will initiate treatment. Keflex 500 mg by mouth and Diflucan 150 mg by mouth ordered. Discharged home with return precautions. Patient verbalize understanding instructions and agreement with plan. Departure Impression Primary Impression: Urinary tract infection Qualified Codes: N30.01 - Acute cystitis with hematuria Additional Impression: Yeast vaginitis Disposition: HOME, SELF-CARE Condition: Stable Departure-Patient Inst. Decision time for Depature: 07:41 Referrals: KIARA MAO MD (PCP/Family) Primary Care Physician Patient Instructions: Urinary Tract Infection, Adult (DC), Vaginal Yeast Infection (DC) Add. Discharge Instructions: All discharge instructions reviewed with patient and/or family. Voiced understanding. You may take ibuprofen 800 mg every 8 hours as needed for pain. Drink plenty of fluids. Take other medications as directed. Follow-up with your DrFernandez in a few days for recheck and further evaluation. Return for worse pain, fever, vomiting, weakness, breathing problems or other concerns as needed. Scripts Cephalexin (Cephalexin) 500 Mg Tablet 500 MG PO BID, #13 TAB 0 Refills Prov: SHANNON JASSO MD 05/09/18 SHANNON JASSO MD May 09, 2018 07:35
[2018-05-09] MEDS ORDERED: FLUCONAZOLE 150 MG TABLET (ED ONLY) PO STA (07:40)
[2018-05-09] MEDS ORDERED: CEPHALEXIN 250 MG (KEFLEX) CAP PO STA (07:40)
[2018-05-09] MEDS ORDERED: CEPH500T PO (07:43)
[2018-05-09 08:27] VITALS: BP 130/70
== END 2018-05-09 07:50 | disposition home or self-care (01) ==
LOC: EDUNIT# 06:53 → ER 06:56
DX: N39.0 Urinary tract infection, site not specified (principal); B37.3 Candidiasis of vulva and vagina; E78.00 Pure hypercholesterolemia, unspecified; G43.909 Migraine, unspecified, not intractable, without status migrainosus; K21.9 Gastro-esophageal reflux disease without esophagitis; Z87.448 Personal history of other diseases of urinary system; Z91.048 Other nonmedicinal substance allergy status; Z87.891 Personal history of nicotine dependence; Z90.49 Acquired absence of other specified parts of digestive tract
CPT/HCPCS: 81000; 84703; 87088; 99283

== ENCOUNTER 2018-12-26 07:52 | Emergency (ER) | payer MEDICAID ==
[~2018-12-26] VITALS: Ht 165.1 cm; Wt 108.9 kg
[~2018-12-26 07:52] MED LIST changes: +METR-145 PO; -METR-197 PO
--- NOTE | 2018-12-26 08:02 | ED EENT ---
History of Present Illness General Stated Complaint: DENTAL PAIN Source: patient History of Present Illness Date Seen by Provider: Dec 26, 2018 Time Seen by Provider: 08:00 Initial Comments C/O PAIN AND SWELLING TO LEFT CHEEK SINCE THURSDAY NIGHT 12/24/18 STATES SHE HAS ONGOING ISSUES WITH LEFT UPPER MOLAR SINCE SEPTEMBER SAW DR. SANTOS A MONTH AGO FOR THIS PROBLEM AND STATES THAT SHE NEEDS A ROOT CANAL, BUT ARE WAITING FOR INSURANCE. SHE STATES THAT HE GAVE HER RX FOR PENICILLIN, BUT SHE HAD NOT TAKEN ANY UNTIL THURSDAY NIGHT--STATES SHE HAS BEEN TAKING ONE EVERY 4 HOURS WITHOUT IMPROVEMENT NO FEVER NO OTHER SYMPTOMS PCP: DR. MAO DENTIST: DR. SANTOS Allergies and Home Medications Allergies Coded Allergies: adhesive tape (Verified Allergy, Unknown, HIVES, 03/08/18) Home Medications Cephalexin 500 Mg Tablet, 500 MG PO BID Prescribed by: SHANNON JASSO on 05/09/18 0743 Clindamycin HCl 300 Mg Capsule, 300 MG PO QID Prescribed by: ISIDRO ESQUEDA on 12/26/18 0815 Lidocaine HCl 15 Ml Solution, 15 ML MM Q 1-2 HOURS Prescribed by: ISIDRO ESQUEDA on 12/26/18 0815 Naproxen 500 Mg Tablet, 500 MG PO BID Prescribed by: ISIDRO ESQUEDA on 12/26/18 0815 Pantoprazole Sodium 40 Mg Tablet., 40 MG PO DAILY, (Reported) Patient Home Medication List Home Medication List Reviewed: Yes Review of Systems Review of Systems Constitutional: no symptoms reported Ears: No Symptoms Reported Nose: no symptoms reported Mouth: see HPI Throat: no symptoms reported Respiratory: no symptoms reported Cardiovascular: no symptoms reported : No (ON OCP'S) LMP: Dec 20, 2018 Skin: no symptoms reported Neurological: No Symptoms Reported Hematologic/Lymphatic: No Symptoms Reported Immunological/Allergic: no symptoms reported Past Ssxbljh-Ogifek-Uciepb Hx Patient Social History Alcohol Use: Denies Use Recreational Drug Use: No Smoking Status: Former Smoker Type Used: Cigarettes Former Smoker, Quit: Mar 22, 2016 Recent Foreign Travel: No Contact w/Someone Who Travel: No Recent Hopitalizations: No Immunizations Up To Date Tetanus Booster (TDap): Less than 5yrs PED Vaccines UTD: Yes Seasonal Allergies Seasonal Allergies: No Past Medical History Surgeries: Yes (ganglion cyst on wrist ) Appendectomy, Orthopedic Respiratory: No Cardiac: Yes High Cholesterol Neurological: Yes Headaches /Migraines Reproductive Disorders: No Female Reproductive Disorders: Menstrual Problems Genitourinary: No Gastrointestinal: Yes (lactose intolerance) Gastroesophageal Reflux, Gall Bladder Disease Musculoskeletal: No Endocrine: No HEENT: Yes (DENTAL CARIES) Cancer: No Psychosocial: No Integumentary: No Blood Disorders: No Adverse Reaction/Blood Tranf: No Family Medical History Patient reports no known family medical history. No Pertinent Family Hx Physical Exam Vital Signs Vital Signs - First Documented 12/26/18 07:54 Temp 96.8 Pulse 75 Resp 18 B/P (MAP) 144/102 (116) Pulse Ox 99 O2 Delivery Room Air Height, Weight, BMI Height: 5'4.00" Weight: 262lbs. 0.0oz. 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 Referrals: CECILIA SANTOS DDS, DANIEL J MD (PCP/Family) Primary Care Physician Patient Instructions: Tooth Abscess (DC) Add. Discharge Instructions: FREQUENT SALT WATER SWISHES STOP PENICILLIN FOLLOW UP WITH DR. SANTOS IN 1-2 DAYS FOR FURTHER CARE Scripts Lidocaine HCl (Lidocaine HCl Viscous) 15 Ml Solution 15 ML MM Q 1-2 HOURS, #120 ML Prov: ISIDRO ESQUEDA DO 12/26/18 Naproxen (Naproxen) 500 Mg Tablet 500 MG PO BID, #20 TAB Prov: ISIDRO ESQUEDA DO 12/26/18 Clindamycin HCl (Clindamycin HCl) 300 Mg Capsule 300 MG PO QID for FOR INFECTION, #40 CAP Prov: ISIDRO ESQUEDA DO 12/26/18 ISIDRO ESQUEDA DO Dec 26, 2018 08:02
[2018-12-26] MEDS ORDERED: LIDOCAINE 1% INJ 20 ML 20 ML VIAL INJ ONE (08:15)
[2018-12-26] MEDS ORDERED: LIDO15SO2 MM (08:15)
[2018-12-26] MEDS ORDERED: CLIN300C11 PO (08:15)
[2018-12-26] MEDS ORDERED: NAPR-915 PO (08:15)
[2018-12-26] MEDS ORDERED: cefTRIAXone 1,000 MG/2.86 ml vial (IM ONLY) IM SCH (08:15)
[2018-12-26] MEDS ORDERED: KETOROLAC 60 MG/2 ML VIAL IM ONE (08:15)
[2018-12-26 08:43] VITALS: BP 145/101
[2018-12-26] MEDS ORDERED: TRAM50TA2 PO (19:46)
== END 2018-12-26 08:43 | disposition home or self-care (01) ==
LOC: EDUNIT# 07:52 → ER 07:53
DX: K04.7 Periapical abscess without sinus (principal); E78.00 Pure hypercholesterolemia, unspecified; G43.909 Migraine, unspecified, not intractable, without status migrainosus; K21.9 Gastro-esophageal reflux disease without esophagitis; Z88.8 Allergy status to other drugs, medicaments and biological substances; Z87.891 Personal history of nicotine dependence; Z90.49 Acquired absence of other specified parts of digestive tract
CPT/HCPCS: 96372; 99284

== ENCOUNTER 2018-12-26 19:04 | Emergency (ER) | payer MEDICAID ==
[~2018-12-26] VITALS: Ht 162.6 cm; Wt 113.4 kg
[~2018-12-26 19:04] MED LIST changes: +CLIN300C11 PO; +NAPR-915 PO
--- OUTSIDE RECORDS SUMMARY | 2018-12-26 19:10 | XMS REPORT ---
Author Author CRISTA ROSALES Organization [facility] Address [address] [place] [address] Care Team Providers Care Retail Specialist Name Role Phone CRISTA ROSALES Unavailable PROBLEMS Type Condition ICD9-CM Code ZHC03-DY Code Onset Dates Condition Status SNOMED Code Problem Migraine headache G43.909 Active 65201275 Problem Mixed hyperlipidemia E78.2 Active [id number] ALLERGIES No Information ENCOUNTERS Encounter Location Date Diagnosis [place] [id number] [address] Dec, [address] [address] Nov, Exercise counseling Z71.82 [facility] [address] [place] [id number] [place] [address] Nov, Impetigo L01.00 and Morbid obesity E66.01 [place] [id number] [place] [address] Nov, Exercise counseling Z71.82 [place] [id number] [place] [address] October, Exercise counseling Z71.[address] [address] October, Exercise counseling Z71.[address] [address] Sep, Mixed hyperlipidemia E78.2 ; Weight loss counseling, encounter for Z71.3 ; 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 and Morbid obesity E66.01 [facility] [address] [place] [address] Sep, Exercise counseling Z71.82 [facility] [address] [place] [id number] [place] [address] Sep, Exercise counseling Z71.82 [facility] [address] [place] [id number] [place] [address] Sep, Exercise counseling Z71.82 [place] [address] [address] Sep, Exercise counseling Z71.82 [place] [address] [address] Aug, Screening for diabetes mellitus Z13.1 [place] [address] [address] Aug, Screening for diabetes mellitus Z13.1 [place] [address] [address] Aug, Exercise counseling Z71.82 [place] [address] [address] Aug, Encounter for initial prescription of contraceptive pills Z30.011 ; Contraception management Z30.9 ; Contraceptive education Z30.09 ; Mixed hyperlipidemia E78.2 ; Weight loss counseling, encounter for Z71.3 ; Screening for diabetes mellitus Z13.1 ; Screening for thyroid disorder Z13.29 ; History of anemia Z86.2 and Morbid obesity E66.01 [facility] [address] [place] [id number] [place] [address] October, Seasonal allergic rhinitis, unspecified trigger J30.2 and BMI 40.0- 44.9, adult Z68.41 [facility] [address] [address] Sep, Pelvic pain R10.2 ; Chronic GERD K21.9 and BMI 40.0-44.9, adult Z68.41 [place] [address] [address] Jul, [facility] [address] [address] Apr, Sore throat J02.9 ; Acute recurrent streptococcal tonsillitis J03.01 and BMI 40.0-44.9, adult Z68.41 [facility] [address] [address] Mar, Sore throat J02.9 and Acute non-recurrent streptococcal tonsillitis J03.00 [place] [id number] [place] [address] Feb, [facility] [id number] [place] [id number] Jan, Anxiety and depression F41.8 [facility] [address] [id number] [id number] Dec, [place] [address] [place] [id number] [place] [address] Nov, [place] [address] [place] [id number] [place] [address] Jun, Normal in multigravida Z34.80 and First trimester Z33.1 [place] [address] [place] [id number] [place] [address] Jun, 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 and Ota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 ear H92.01 [place] [address] [place] [id number] [place] [address] May, [facility] [address] [place] [address] [id number] [place] [address] May, Late menses N91.0 and Acute suppurative otitis media of left ear without spontaneous rupture of tympanic membrane, recurrence not specified H66.002 [place] [address] [place] [id number] [place] [address] May, [place] [address] [place] [address] Apr, [facility] [id number] [place] [address] Apr, Vaginal discharge N89.8 and Vaginal yeast infection B37.3 [facility] [address] [address] Mar, [facility] [address] [place] [id number] [place] [address] Feb, [facility] [id number] [place] [address] Feb, [facility] [address] [place] [id number] [place] [address] 15 Feb, 2016 Abnormal cholesterol test E78.9 [place] [address] [place] [id number] [place] [address] 14 Feb, 2016 History of UTI Z87.440 ; Mixed hyperlipidemia E78.2 and Abnormal thyroid blood test R94.6 [facility] [address] [place] [address] Jan, [facility] [address] [place] [address] Jan, [facility] [address] [address] Jan, Chest pain, unspecified type R07.9 ; Palpitations R00.2 ; Hyperlipidemia, unspecified hyperlipidemia type E78.5 and Dyspnea, unspecified type R06.00 [facility] [address] [address] Jan, [facility] [id number] [place] [address] Dec, [facility] [address] [address] Dec, Upper respiratory tract infection, unspecified type J06.9 [place] [address] [place] [id number] [place] [address] Dec, Major depressive disorder, single episode, unspecified F32.9 and Panic attacks F41.0 [place] [address] [address] Nov, History of anemia Z86.2 ; Abnormal thyroid blood test R94.6 ; Mixed hyperlipidemia E78.2 ; Migraine headache G43.909 and Acute maxillary sinusitis, recurrence not specified J01.[address] [address] Nov, 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 and Chondromalacia patellae of right knee M22.[address] [address] Nov, Abnormal thyroid blood test R94.6 and Abnormal cholesterol test E78.[address] [address] October, History of palpitations Z87.898 ; Pain in left knee M25.562 and Pain in right knee M25.[address] [address] Sep, Pelvic pain in female 625.[address] [address] Sep, Pelvic pain R10.2 ; Galactorrhea in female N64.3 ; Knee pain, left M25.562 and Knee pain, right M25.561 [facility] [address] [address] Aug, Cough R05 and Laceration of thumb, left S61.012A [place] [address] [place] [id number] [place] [address] Aug, Cough R05 ; History of UTI Z87.440 and Contraception management Z30.9 [place] [id number] [place] [address] 02 Aug, 2015 History of UTI Z87.440 and Irregular menses N92.6 [place] [address] [address] 18 Jul, 2015 Leukopenia D72.819 and Neutropenia D70.9 [place] [address] [address] 18 Jul, 2015 Leukopenia D72.819 and Neutropenia D70.9 [place] [address] [address] 17 Jul, 2015 Migraine headache G43.909 ; Heart burn R12 and History of long-term use of multiple prescription drugs Z92.29 [facility] IN [facility] [address] [address] 15 Jul, 2015 Vaginal discharge N89.8 ; High risk sexual behavior Z72.51 ; Unprotected sex Z72.51 ; Acute upper respiratory infection, unspecified J06.9 and Other viral agents as the cause of diseases classified elsewhere B97.89 [place] [address] [address] 04 Jul, 2015 Sore throat J02.9 ; Sinusitis J32.9 and Fever R50.9 [place] [address] [place] [id number] [place] [address] Jun, Migraine headache G43.909 and Heart burn R12 [place] [address] [place] [id number] [place] [address] Jun, [place] [address] [address] Jun, [place] [address] [address] Jun, Evaluation regarding contraception options Z30.09 ; Encounter for Depo-Provera contraception Z30.42 ; 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) w/o abn findings Z01.419 ; Pelvic pain R10.2 ; Migraine headache G43.909 and Vaginal discharge N89.8 [place] [address] [address] 10 May, 2015 Overweight E66.3 ; Encounter for immunization Z23 ; Pain of right thumb M79.644 and Headache R51 [facility] [address] [address] May, Insect bite of shoulder S40.269A [facility] [address] [address] May, Sore throat J02.9 [place] [address] [address] 24 Feb, 2015 Pelvic pain in female 625.9 and Menorrhagia 626.2 [place] [address] [address] Dec, Diarrhea 787.91 [place] [address] [address] Dec, Pelvic pain in female 625.9 and Ganglion cyst of wrist 727.41 [place] [address] [address] Nov, Eczema 692.9 [place] [address] [address] Nov, [place] [address] [address] Sep, [place] [address] [address] Sep, [place] [address] [address] Jul, [place] [address] [address] Jul, [facility] [address] [id number] [place] [address] Jun, [facility] [place] [facility] [address] [id number] [place] [address] Jun, [facility] [place] [facility] [address] [id number] [place] [address] Jun, [facility] [place] [facility] [address] [id number] [place] [address] Jun, [facility] [place] [facility] [address] [id number] [place] [address] Jun, [facility] [place] [facility] [address] [id number] [place] [address] Jun, [facility] [place] [facility] [address] [id number] [place] [address] Jun, [facility] [place] [facility] [address] [id number] [place] [address] Jun, [facility] [place] [facility] [address] [id number] [place] [address] May, [facility] [place] [facility] [address] [id number] [place] [address] May, [facility] [place] [facility] [address] [id number] [place] [address] May, [facility] [place] [facility] [address] [id number] [place] [address] May, [facility] [place] [facility] [address] [id number] [place] [address] Apr, [facility] [place] [facility] [address] [id number] [place] [address] Apr, [facility] [place] [facility] [address] [id number] [place] [address] Apr, [facility] [place] [facility] [address] [id number] [address] Apr, [facility] [place] [facility] [address] [id number] [place] [address] Apr, [facility] [place] [facility] [address] [id number] [place] [address] Apr, [facility] [place] [facility] [address] [id number] [place] [address] 29 Feb, 2013 [facility] [place] [facility] [address] [id number] [place] [address] 29 Feb, 2013 [facility] [place] [facility] [address] [id number] [place] [address] Feb, [facility] [place] [facility] [address] [id number] [place] [address] Feb, [facility] [place] [facility] [address] [id number] [place] [address] Feb, [facility] [place] [facility] [address] [id number] [place] [address] Feb, [facility] [place] [facility] [address] [id number] [place] [address] 25 Feb, 2014 [facility] [place] [facility] [address] [id number] [place] [address] 25 Feb, 2013 [facility] [place] [facility] [address] [id number] [place] [address] 23 Feb, 2013 [facility] [place] [facility] [address] [id number] [place] [address] 23 Feb, 2013 [facility] [place] [facility] [address] [id number] [place] [address] 22 Feb, 2013 [facility] [place] [facility] [address] [id number] [place] [address] 22 Feb, 2013 [facility] [place] [facility] [address] [id number] [place] [address] 19 Feb, 2013 [facility] [place] [facility] [address] [id number] [place] [address] 19 Feb, 2013 [facility] [place] [facility] [address] [id number] [place] [address] 12 Feb, 2013 [facility] [place] [facility] [address] [id number] [place] [address] 10 Feb, 2013 [facility] [place] [facility] [address] [id number] [place] [address] 10 Feb, 2013 [facility] [place] [facility] [address] [id number] [place] [address] Feb, 2013 [facility] [place] [facility] [address] [id number] [place] [address] Feb, 2013 [facility] [place] [facility] [address] [id number] [place] [address] Feb, 2013 [facility] [place] [facility] [address] [id number] [place] [address] Jan, [facility] [place] [facility] [address] [id number] [place] [address] Jan, [facility] [place] [facility] [address] [id number] [place] [address] Jan, [facility] [place] [facility] [address] [id number] [place] [address] Jan, [facility] [place] [facility] [address] [id number] [place] [address] Jan, [facility] [place] [facility] [address] [id number] [place] [address] Jan, [facility] [place] [facility] [address] [id number] [place] [address] Jan, [facility] [place] [facility] [address] [id number] [place] [address] Jan, [facility] [place] [facility] [address] [id number] [place] [address] Dec, [facility] [place] [facility] [address] [id number] [place] [address] Dec, [facility] [place] [facility] [address] [id number] [place] [address] Dec, [facility] [place] [facility] [address] [id number] [place] [address] Dec, [facility] [place] [facility] [address] [id number] [place] [address] Dec, [facility] [place] [facility] [address] [id number] [place] [address] Dec, [facility] [place] [facility] [address] [id number] [place] [address] Dec, [facility] [place] [facility] [address] [id number] [place] [address] Dec, [facility] [place] [facility] [address] [id number] [place] [address] Dec, [facility] [place] [facility] [address] [id number] [place] [address] Dec, [facility] [place] [facility] [address] [id number] [place] [address] Dec, [facility] [place] [facility] [address] [id number] [place] [address] Dec, [facility] [place] [facility] [address] [id number] [place] [address] Nov, [facility] [place] [facility] [address] [id number] [place] [address] Nov, [facility] [place] [facility] [address] [id number] [place] [address] Nov, [facility] [place] [facility] [address] [id number] [place] [address] Nov, [facility] [place] [facility] [address] [id number] [place] [address] Nov, [facility] [place] [facility] [address] [id number] [place] [address] Nov, [facility] [place] [facility] [address] [id number] [place] [address] Nov, [facility] [place] [facility] [address] [id number] [place] [address] Nov, [facility] [place] [facility] [address] [id number] [place] [address] Nov, [facility] [place] [facility] [address] [id number] [place] [address] Nov, [facility] [place] [facility] [address] [id number] [place] [address] October, [facility] [place] [facility] [address] [id number] [place] [address] October, [facility] [place] [facility] [address] [id number] [place] [address] October, [facility] [place] [facility] [address] [id number] [place] [address] October, [facility] [place] [facility] [address] [id number] [place] [address] October, [facility] [place] [facility] [address] [id number] [place] [address] October, [facility] [place] [facility] [address] [id number] [place] [address] Sep, [facility] [place] [facility] [address] [id number] [place] [address] Sep, [facility] [place] [facility] [address] [id number] [place] [address] Sep, [facility] [place] [facility] [address] [id number] [place] [address] Sep, [facility] [place] [facility] [address] [id number] [place] [address] Sep, [facility] [place] [facility] [address] [id number] [place] [address] Sep, [facility] [place] [facility] [address] [id number] [place] [address] Aug, [facility] [place] [facility] [address] [id number] [place] [address] Aug, [facility] [place] [facility] [address] [id number] [place] [address] Aug, [facility] [place] [facility] [address] [id number] [place] [address] Aug, [facility] [place] [facility] [address] [id number] [place] [address] Aug, [facility] [place] [facility] [address] [id number] [place] [address] Jun, [facility] [place] [facility] [address] [id number] [place] [address] Jun, [facility] [place] [facility] [address] [id number] [place] [address] Jun, [facility] [place] [facility] [address] [id number] [place] [address] Jun, [facility] [place] [facility] [address] [id number] [place] [address] Jun, [facility] [place] [facility] [address] [id number] [place] [address] Jun, [facility] [place] [facility] [address] [id number] [place] [address] Jun, [facility] [place] [facility] [address] [id number] [place] [address] Mar, [facility] [place] [facility] [address] [id number] [place] [address] Mar, IMMUNIZATIONS No Known Immunizations SOCIAL HISTORY Never Assessed REASON FOR VISIT PLAN OF CARE VITAL SIGNS MEDICATIONS Unknown Medications RESULTS No Results PROCEDURES Procedure Date Ordered Result Body Site US EXAM, ABDOM, COMPLETE Jul 10, 2014 INSTRUCTIONS MEDICATIONS ADMINISTERED No Known Medications MEDICAL (GENERAL) HISTORY Type Description Date Medical History abdominal pain Medical History IBS Medical History High risk sexual behavior Medical History Leukopenia Medical History History of palpitations Medical History Galactorrhea in female Medical History Acid Reflux Medical History -2017 2.9 cm left ovarian cyst per us Medical History Panic attacks Medical History Major depressive disorder, single episode, unspecified Medical History Chronic GERD Surgical History appendectomy age 12-13 Surgical History cyct removal on LT wrist 01/03 Surgical History cholecystectomy Hospitalization History Hospitalization for surgery only Hospitalization History childbirth
--- OUTSIDE RECORDS SUMMARY | 2018-12-26 19:11 | XMS REPORT ---
Author Author Migration, Doctor Organization [facility] Address Unknown Phone Unavailable Care Team Providers Care Promotional Marketing Analyst Name Role Phone Migration, Doctor Unavailable Unavailable PROBLEMS Type Condition ICD9-CM Code PES04-ID Code Onset Dates Condition Status SNOMED Code Problem Migraine headache G43.909 Active 16646712 Problem Mixed hyperlipidemia E78.2 Active [id number] ALLERGIES No Information ENCOUNTERS Encounter Location Date Diagnosis [place] [address] [address] October, [place] [address] [address] Sep, Mixed hyperlipidemia E78.2 ; Weight loss counseling, encounter for Z71.3 ; 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 and Morbid obesity E66.01 [place] [address] [address] [place] [id number] [place] [address] Sep, Exercise counseling Z71.82 [place] [address] [address] Sep, Exercise counseling Z71.82 [place] [address] [place] [id number] [place] [address] Sep, Exercise counseling Z71.82 [place] [address] [place] [id number] [place] [address] Sep, Exercise counseling Z71.82 [place] [address] [address] Aug, Screening for diabetes mellitus Z13.1 [place] [address] [place] [id number] [place] [address] Aug, Screening for diabetes mellitus Z13.1 [place] [address] [address] Aug, Exercise counseling Z71.82 [place] [address] [place] [address] Aug, Encounter for initial prescription of contraceptive pills Z30.011 ; Contraception management Z30.9 ; Contraceptive education Z30.09 ; Mixed hyperlipidemia E78.2 ; Weight loss counseling, encounter for Z71.3 ; Screening for diabetes mellitus Z13.1 ; Screening for thyroid disorder Z13.29 ; History of anemia Z86.2 and Morbid obesity E66.01 [facility] [place] [address] [address] [place] [address] 02 Oct, 2017 Seasonal allergic rhinitis, unspecified trigger J30.2 and BMI 40.0- 44.9, adult Z68.41 [place] [address] [place] [id number] [place] [address] 04 Sep, 2017 Pelvic pain R10.2 ; Chronic GERD K21.9 and BMI 40.0-44.9, adult Z68.41 [place] [address] [place] [address] Jul, [place] [id number] [place] [address] Apr, Sore throat J02.9 ; Acute recurrent streptococcal tonsillitis J03.01 and BMI 40.0-44.9, adult Z68.41 [address] [place] [address] Mar, Sore throat J02.9 and Acute non-recurrent streptococcal tonsillitis J03.[address] [place] [address] Feb, [address] [id number] [id number] Jan, Anxiety and depression F41.[address] [id number] [id number] Dec, [place] [address] [place] [id number] [place] [address] Nov, [place] [address] [address] Jun, Normal in multigravida Z34.80 and First trimester Z33.1 [place] [address] [address] Jun, 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 and Ota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 ear H92.01 [facility] [address] [place] [id number] [place] [address] May, [facility] [address] [address] May, Late menses N91.0 and Acute suppurative otitis media of left ear without spontaneous rupture of tympanic membrane, recurrence not specified H66.002 [place] [address] [place] [id number] [place] [address] May, [place] [address] [place] [id number] [place] [address] Apr, [facility] [address] [place] [id number] [place] [address] Apr, Vaginal discharge N89.8 and Vaginal yeast infection B37.3 [place] [address] [place] [id number] [place] [address] Mar, [place] [address] [place] [id number] [place] [address] Feb, [place] [address] [address] Feb, [place] [address] [place] [id number] [place] [address] 15 Feb, 2016 Abnormal cholesterol test E78.9 [place] [address] [address] Feb, History of UTI Z87.440 ; Mixed hyperlipidemia E78.2 and Abnormal thyroid blood test R94.6 [facility] [address] [place] [address] Jan, [facility] [address] [place] [id number] [place] [address] Jan, [place] [address] [address] Jan, Chest pain, unspecified type R07.9 ; Palpitations R00.2 ; Hyperlipidemia, unspecified hyperlipidemia type E78.5 and Dyspnea, unspecified type R06.00 [place] [address] [address] Jan, [facility] [address] [place] [id number] [place] [address] Dec, [facility] IN [facility] [address] [address] Dec, Upper respiratory tract infection, unspecified type J06.9 [place] [address] [place] [id number] [place] [address] Dec, Major depressive disorder, single episode, unspecified F32.9 and Panic attacks F41.0 [facility] [address] [place] [id number] [place] [address] Nov, History of anemia Z86.2 ; Abnormal thyroid blood test R94.6 ; Mixed hyperlipidemia E78.2 ; Migraine headache G43.909 and Acute maxillary sinusitis, recurrence not specified J01.00 [facility] [address] [place] [id number] [place] [address] Nov, 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 and Chondromalacia patellae of right knee M22.41 [facility] [address] [place] [id number] [place] [address] Nov, Abnormal thyroid blood test R94.6 and Abnormal cholesterol test E78.9 [place] [address] [place] [id number] [place] [address] October, History of palpitations Z87.898 ; Pain in left knee M25.562 and Pain in right knee M25.561 [place] [address] [place] [id number] [place] [address] Sep, Pelvic pain in female 625.9 [place] [address] [address] Sep, Pelvic pain R10.2 ; Galactorrhea in female N64.3 ; Knee pain, left M25.562 and Knee pain, right M25.561 [facility] [place] [address] [address] Aug, Cough R05 and Laceration of thumb, left S61.012A [place] [address] [address] Aug, Cough R05 ; History of UTI Z87.440 and Contraception management Z30.9 [place] [address] [address] Aug, History of UTI Z87.440 and Irregular menses N92.6 [place] [address] [place] [id number] [place] [address] 18 Jul, 2015 Leukopenia D72.819 and Neutropenia D70.9 [place] [address] [place] [id number] [place] [address] Jul, Leukopenia D72.819 and Neutropenia D70.9 [place] [address] [place] [id number] [place] [address] Jul, Migraine headache G43.909 ; Heart burn R12 and History of long-term use of multiple prescription drugs Z92.29 [facility] [place] [address] [address] [place] [id number] [place] [address] 15 Jul, 2015 Vaginal discharge N89.8 ; High risk sexual behavior Z72.51 ; Unprotected sex Z72.51 ; Acute upper respiratory infection, unspecified J06.9 and Other viral agents as the cause of diseases classified elsewhere B97.[address] [address] 04 Jul, 2015 Sore throat J02.9 ; Sinusitis J32.9 and Fever R50.[address] [address] 27 Jun, 2015 Migraine headache G43.909 and Heart burn R12 [address] [address] Jun, [address] [address] Jun, [address] [address] Jun, Evaluation regarding contraception options Z30.09 ; Encounter for Depo-Provera contraception Z30.42 ; 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) w/o abn findings Z01.419 ; Pelvic pain R10.2 ; Migraine headache G43.909 and Vaginal discharge N89.[address] [address] 10 May, 2015 Overweight E66.3 ; Encounter for immunization Z23 ; Pain of right thumb M79.644 and Headache R51 [facility] [address] [place] [address] 03 May, 2015 Insect bite of shoulder S40.269A [facility] [address] [place] [address] May, Sore throat J02.[address] [address] 24 Feb, 2015 Pelvic pain in female 625.9 and Menorrhagia 626.[address] [place] [address] 16 Dec, 2014 Diarrhea 787.91 [facility] [address] [place] [id number] [place] [address] Dec, Pelvic pain in female 625.9 and Ganglion cyst of wrist 727.41 [facility] [address] [place] [id number] [place] [address] Nov, Eczema 692.9 [facility] [address] [place] [id number] [place] [address] Nov, [facility] [address] [place] [id number] [place] [address] Sep, [facility] [address] [place] [id number] [place] [address] Sep, [facility] [address] [place] [id number] [place] [address] Jul, [facility] [address] [place] [id number] [place] [address] Jul, [facility] [address] [place] [id number] [place] [address] Jun, [facility] [address] [place] [id number] [place] [address] Jun, [facility] [address] [place] [id number] [place] [address] Jun, [facility] [address] [place] [id number] [place] [address] Jun, [facility] [address] [place] [id number] [place] [address] Jun, [facility] [address] [place] [id number] [place] [address] Jun, [facility] [address] [place] [address] Jun, [facility] [place] [facility] [address] [id number] [place] [address] Jun, [facility] [place] [facility] [address] [id number] [place] [address] May, [facility] [place] [facility] [address] [id number] [place] [address] May, [facility] [place] [facility] [address] [id number] [place] [address] May, [facility] [place] [facility] [address] [id number] [place] [address] May, [facility] [place] [facility] [address] [id number] [place] [address] Apr, [facility] [place] [facility] [address] [id number] [place] [address] Apr, [facility] [place] [facility] [address] [id number] [place] [address] Apr, [facility] [place] [facility] [address] [id number] [place] [address] Apr, [facility] [place] [facility] [address] [id number] [place] [address] Apr, [facility] [place] [facility] [address] [id number] [place] [address] Apr, [facility] [place] [facility] [address] [id number] [place] [address] 29 Feb, 2014 [facility] [place] [facility] [address] [id number] [place] [address] 29 Feb, 2014 [facility] [place] [facility] [address] [id number] [place] [address] Feb, [facility] [place] [facility] [address] [id number] [place] [address] Feb, [facility] [place] [facility] [address] [id number] [place] [address] 26 Sep, 2013 [facility] [place] [facility] [address] [id number] [place] [address] 26 Sep, 2013 [facility] [place] [facility] [address] [id number] [place] [address] 25 Feb, 2013 [facility] [place] [facility] [address] [id number] [place] [address] 25 Feb, 2013 [facility] [place] [facility] [address] [id number] [place] [address] 23 Feb, 2013 [facility] [place] [facility] [address] [id number] [place] [address] 23 Feb, 2013 [facility] [place] [facility] [address] [id number] [place] [address] 22 Feb, 2013 [facility] [place] [facility] [address] [id number] [place] [address] 22 Feb, 2013 [facility] [place] [facility] [address] [id number] [place] [address] 19 Feb, 2013 [facility] [place] [facility] [address] [id number] [place] [address] 19 Feb, 2013 [facility] [place] [facility] [address] [id number] [place] [address] 12 Feb, 2013 [facility] [place] [facility] [address] [id number] [address] 10 Feb, 2013 [facility] [place] [facility] [address] [id number], [place] [address] 10 Feb, 2013 [facility] [place] [facility] [address] [id number] [place] [address] 04 Sep, 2013 [facility] [place] [facility] [address] [id number] [place] [address] 03 Sep, 2013 [facility] [place] [facility] [address] [id number] [place] [address] 03 Sep, 2013 [facility] [place] [facility] [address] [id number] [place] [address] Jan, [facility] [place] [facility] [address] [id number] [place] [address] Jan, [facility] [place] [facility] [address] [id number] [place] [address] Jan, [facility] [place] [facility] [address] [id number] [place] [address] Jan, [facility] [place] [facility] [address] [id number] [place] [address] Jan, [facility] [place] [facility] [address] [id number] [place] [address] Jan, [facility] [place] [facility] [address] [id number] [place] [address] Jan, [facility] [place] [facility] [address] [id number] [place] [address] Jan, [facility] [place] [facility] [address] [id number] [place] [address] Dec, [facility] [place] [facility] [address] [id number] [place] [address] Dec, [facility] [place] [facility] [address] [id number] [place] [address] Dec, [facility] [place] [facility] [address] [id number] [place] [address] Dec, [facility] [place] [facility] [address] [id number] [place] [address] Dec, [facility] [place] [facility] [address] [id number] [place] [address] Dec, [facility] [place] [facility] [address] [id number] [place] [address] Dec, [facility] [place] [facility] [address] [id number] [place] [address] Dec, [facility] [place] [facility] [address] [id number] [place] [address] Dec, [facility] [place] [facility] [address] [id number] [place] [address] Dec, [facility] [place] [facility] [address] [id number] [place] [address] Dec, [facility] [place] [facility] [address] [id number] [place] [address] Dec, [facility] [place] [facility] [address] [id number] [place] [address] Nov, [facility] [place] [facility] [address] [id number] [place] [address] Nov, [facility] [place] [facility] [address] [id number] [place] [address] Nov, [facility] [place] [facility] [address] [id number] [place] [address] Nov, [facility] [place] [facility] [address] [id number] [place] [address] Nov, [facility] [place] [facility] [address] [id number] [place] [address] Nov, [facility] [place] [facility] [address] [id number] [place] [address] Nov, [facility] [place] [facility] [address] [id number] [place] [address] Nov, [facility] [place] [facility] [address] [id number] [place] [address] Nov, [facility] [place] [facility] [address] [id number] [place] [address] Nov, [facility] [place] [facility] [address] [id number] [place] [address] October, [facility] [place] [facility] [address] [id number] [place] [address] October, [facility] [place] [facility] [address] [id number] [place] [address] October, [facility] [place] [facility] [address] [id number] [place] [address] October, [facility] [place] [facility] [address] [id number] [place] [address] October, [facility] [place] [facility] [address] [id number] [place] [address] October, [facility] [place] [facility] [address] [id number] [place] [address] Sep, [facility] [place] [facility] [address] [id number] [place] [address] Sep, [facility] [place] [facility] [address] [id number] [place] [address] Sep, [facility] [place] [facility] [address] [id number] [place] [address] Sep, [facility] [place] [facility] [address] [id number] [place] [address] Sep, [facility] [place] [facility] [address] [id number] [place] [address] Sep, [facility] [place] [facility] [address] [id number] [place] [address] Aug, [facility] [place] [facility] [address] [id number] [place] [address] Aug, [facility] [place] [facility] [address] [id number] [place] [address] Aug, [facility] [place] [facility] [address] [id number] [place] [address] Aug, [facility] [place] [facility] [address] [id number] [place] [address] Aug, [facility] [place] [facility] [address] [id number] [address] Jun, [facility] [address] [id number] [address] Jun, [facility] [address] [address] Jun, [facility] [address] [place] [id number] [address] Jun, [facility] [address] [address] Jun, [facility] [id number] [address] Jun, [facility] [address] [address] Jun, [facility] [address] [address] Mar, [facility] [address] [id number] [address] Mar, IMMUNIZATIONS No Known Immunizations SOCIAL HISTORY Never Assessed REASON FOR VISIT [facility] [place] PLAN OF CARE VITAL SIGNS MEDICATIONS Unknown [...]
--- OUTSIDE RECORDS SUMMARY | 2018-12-26 19:11 | XMS REPORT ---
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 Name Role Phone Migration, Doctor Unavailable Unavailable PROBLEMS Type Condition ICD9-CM Code MRT49-PZ Code Onset Dates Condition Status SNOMED Code Problem Major depressive disorder, single episode, unspecified F32.9 Active 30521070 Problem Panic attacks F41.0 Active 711174456 Problem History of anemia Z86.2 Active 643065518 Problem Anxiety and depression F41.8 Active 955775963 Problem History of long-term use of multiple prescription drugs Z92.29 Active 911633338 Problem Chronic GERD K21.9 Active 965378633 Problem Migraine headache G43.909 Active 20412541 Problem Mixed hyperlipidemia E78.2 Active 335832209 Problem Abnormal thyroid blood test R94.6 Active 561969751 Problem Late menses N91.0 Active 057146570 Problem 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 Active 24741149 ALLERGIES No Information ENCOUNTERS Encounter Location Date Diagnosis [place] [id number] [place] [address] Sep, [place] [id number] [place] [address] Sep, [place] [id number] [place] [address] Sep, Exercise counseling Z71.82 [place] [id number] [place] [address] Aug, Screening for diabetes mellitus Z13.1 [place] [id number] [place] [address] Aug, Screening for diabetes mellitus Z13.1 [place] [id number] [place] [address] Aug, Exercise counseling Z71.82 [address] [place] [address] 20 Aug, 2019 Encounter for initial prescription of contraceptive pills Z30.011 ; Contraception management Z30.9 ; Contraceptive education Z30.09 ; Mixed hyperlipidemia E78.2 ; Weight loss counseling, encounter for Z71.3 ; Screening for diabetes mellitus Z13.1 ; Screening for thyroid disorder Z13.29 ; History of anemia Z86.2 and Morbid obesity E66.01 [facility] [place] [id number] [place] [address] 02 Oct, 2017 Seasonal allergic rhinitis, unspecified trigger J30.2 and BMI 40.0- 44.9, adult Z68.[address] [address] 04 Sep, 2017 Pelvic pain R10.2 ; Chronic GERD K21.9 and BMI 40.0-44.9, adult Z68.41 [place] [id number] [place] [address] Jul, [place] [id number] [place] [address] Apr, Sore throat J02.9 ; Acute recurrent streptococcal tonsillitis J03.01 and BMI 40.0-44.9, adult Z68.41 [place] [id number] [place] [address] Mar, Sore throat J02.9 and Acute non-recurrent streptococcal tonsillitis J03.00 [address] [place] [address] Feb, [facility] [id number] [place] [id number] Jan, Anxiety and depression F41.8 [facility] [id number] [place] [id number] Dec, [address] [address] 14 Nov, 2016 [facility] [id number] [place] [address] 18 Jun, 2016 Normal in multigravida Z34.80 and First trimester Z33.1 [facility] [id number] [place] [address] 17 Jun, 2016 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 and Ota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 ear H92.01 [place] [id number] [place] [address] 30 May, 2016 [facility] [address] [address] May, Late menses N91.0 and Acute suppurative otitis media of left ear without spontaneous rupture of tympanic membrane, recurrence not specified H66.002 [place] [id number] [place] [address] May, [place] [id number] [place] [address] Apr, [facility] [id number] [place] [address] Apr, Vaginal discharge N89.8 and Vaginal yeast infection B37.3 [place] [id number] [place] [address] Mar, [place] [id number] [place] [address] Feb, [place] [id number] [place] [address] Feb, [place] [address] [address] 15 Feb, 2016 Abnormal cholesterol test E78.9 [place] [id number] [place] [address] 14 Feb, 2016 History of UTI Z87.440 ; Mixed hyperlipidemia E78.2 and Abnormal thyroid blood test R94.6 [facility] [address] [place] [address] Jan, [place] [id number] [place] [address] Jan, [place] [id number] [place] [address] Jan, Chest pain, unspecified type R07.9 ; Palpitations R00.2 ; Hyperlipidemia, unspecified hyperlipidemia type E78.5 and Dyspnea, unspecified type R06.00 [place] [id number] [place] [address] Jan, [place] [id number] [place] [address] Dec, [facility] [id number] [place] [address] Dec, Upper respiratory tract infection, unspecified type J06.9 [place] [id number] [place] [address] Dec, Major depressive disorder, single episode, unspecified F32.9 and Panic attacks F41.0 [place] [id number] [place] [address] Nov, History of anemia Z86.2 ; Abnormal thyroid blood test R94.6 ; Mixed hyperlipidemia E78.2 ; Migraine headache G43.909 and Acute maxillary sinusitis, recurrence not specified J01.00 [place] [address] [place] [address] Nov, 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 and Chondromalacia patellae of right knee M22.41 [place] [id number] [place] [address] Nov, Abnormal thyroid blood test R94.6 and Abnormal cholesterol test E78.9 [place] [id number] [place] [address] October, History of palpitations Z87.898 ; Pain in left knee M25.562 and Pain in right knee M25.561 [place] [id number] [place] [address] Sep, Pelvic pain in female 625.9 [place] [address] [address] Sep, Pelvic pain R10.2 ; Galactorrhea in female N64.3 ; Knee pain, left M25.562 and Knee pain, right M25.561 [facility] [place] [address] [address] Aug, Cough R05 and Laceration of thumb, left S61.012A [place] [address] [address] 09 Aug, 2015 Cough R05 ; History of UTI Z87.440 and Contraception management Z30.9 [place] [address] [address] 02 Aug, 2015 History of UTI Z87.440 and Irregular menses N92.6 [place] [id number] [place] [address] 18 Jul, 2015 Leukopenia D72.819 and Neutropenia D70.9 [place] [id number] [place] [address] 18 Jul, 2015 Leukopenia D72.819 and Neutropenia D70.9 [place] [id number] [place] [address] 17 Jul, 2015 Migraine headache G43.909 ; Heart burn R12 and History of long-term use of multiple prescription drugs Z92.29 [facility] [place] [id number] [place] [address] 15 Jul, 2015 Vaginal discharge N89.8 ; High risk sexual behavior Z72.51 ; Unprotected sex Z72.51 ; Acute upper respiratory infection, unspecified J06.9 and Other viral agents as the cause of diseases classified elsewhere B97.[address] [address] 04 Jul, 2015 Sore throat J02.9 ; Sinusitis J32.9 and Fever R50.[address] [address] 27 Jun, 2015 Migraine headache G43.909 and Heart burn R12 [address] [address] Jun, [address] [address] Jun, [address] [address] Jun, Evaluation regarding contraception options Z30.09 ; Encounter for Depo-Provera contraception Z30.42 ; 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 for coffee 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 exam (general) (routine) w/o abn findings Z01.419 ; Pelvic pain R10.2 ; Migraine headache G43.909 and Vaginal discharge N89.[address] [address] May, Overweight E66.3 ; Encounter for immunization Z23 ; Pain of right thumb M79.644 and Headache R51 [facility] [address] [place] [address] May, Insect bite of shoulder S40.269A [facility] [address] [place] [address] May, Sore throat J02.[address] [address] 24 Feb, 2015 Pelvic pain in female 625.9 and Menorrhagia 626.[address] [address] Dec, Diarrhea 787.91 [facility] [address] [address] Dec, Pelvic pain in female 625.9 and Ganglion cyst of wrist 727.41 [facility] [id number] [address] 16 Nov, 2014 Eczema 692.9 [facility] [id number] [place] [address] Nov, [facility] [id number] [place] [address] Sep, [facility] [id number] [place] [address] Sep, [facility] [id number] [place] [address] Jul, [facility] [place] [facility] [id number] [place] [address] Jul, [facility] [address], [place] [address] Jun, [facility] [place] [facility] [id number] [place] [address] Jun, [facility] [place] [facility] [address], [place] [address] Jun, [facility] [place] [facility] [address] [address] Jun, [facility] [address], [place] [address] Jun, [facility] [id number] [address] Jun, [facility] [place] [facility] [address], [place] [address] Jun, [facility] [address] [address] Jun, [facility] [place] [facility] [address] [id number] [place] [address] May, [facility] [place] [facility] [address] [id number] [place] [address] May, [facility] [place] [facility] [address] [facility] [id number] [place] [address] May, [facility] [place] [facility] [address] [id number] [place] [address] May, [facility] [place] [facility] [address] [id number] [place] [address] Apr, [facility] [place] [facility] [address] [id number] [place] [address] Apr, [facility] [place] [facility] [address] [id number] [place] [address] Apr, [facility] [place] [facility] [address] [id number], [place] [address] Apr, [facility] [place] [facility] [address] [id number] [place] [address] Apr, [facility] [place] [facility] [address] [id number] [place] [address] Apr, [facility] [place] [facility] [address] [id number], [place] [address] Feb, [facility] [place] [facility] [address] [id number], [place] [address] 29 Feb, 2014 [facility] [place] [facility] [address] [id number], [place] [address] Feb, [facility] [place] [facility] [address] [id number], [place] [address] Feb, [facility] [place] [facility] [address] [id number], [place] [address] Feb, [facility] [place] [facility] [address] [id number] [place] [address] 26 Sep, 2013 [facility] [place] [facility] [address] [id number] [place] [address] 25 Sep, 2013 [facility] [place] [facility] [address] [id number] [place] [address] 25 Feb, 2013 [facility] [place] [facility] [address] [id number] [place] [address] 23 Feb, 2013 [facility] [place] [facility] [address] [id number] [place] [address] 23 Feb, 2013 [facility] [place] [facility] [address] [id number] [place] [address] 22 Feb, 2013 [facility] [place] [facility] [address] [id number] [place] [address] 22 Feb, 2013 [facility] [place] [facility] [address] [id number] [place] [address] 19 Feb, 2013 [facility] [place] [facility] [address] [id number] [place] [address] 19 Feb, 2013 [facility] [place] [facility] [address] [id number] [place] [address] 12 Feb, 2013 [facility] [place] [facility] [address] [id number] [place] [address] 10 Feb, 2013 [facility] [place] [facility] [address] [id number] [place] [address] 10 Feb, 2013 [facility] [place] [facility] [address] [id number] [place] [address] 04 Feb, 2013 [facility] [place] [facility] [address] [id number] [place] [address] 03 Feb, 2013 [facility] [place] [facility] [address] [id number] [place] [address] 03 Feb, 2013 [facility] [place] [facility] [address] [id number] [place] [address] Jan, [facility] [place] [facility] [address] [id number] [place] [address] Jan, [facility] [place] [facility] [address] [id number] [place] [address] Jan, [facility] [place] [facility] [address] [id number] [place] [address] Jan, [facility] [place] [facility] [address] [id number] [place] [address] Jan, [facility] [place] [facility] [address] [id number] [place] [address] Jan, [facility] [place] [facility] [address] [id number] [place] [address] Jan, [facility] [place] [facility] [address] [id number] [place] [address] Jan, [facility] [place] [facility] [address] [id number] [place] [address] Dec, [facility] [place] [facility] [address] [id number] [place] [address] Dec, [facility] [place] [facility] [address] [id number] [place] [address] Dec, [facility] [place] [facility] [address] [id number] [place] [address] Dec, [facility] [place] [facility] [address] [id number] [place] [address] Dec, [facility] [place] [facility] [address] [id number] [place] [address] Dec, [facility] [place] [facility] [address] [id number] [place] [address] Dec, [facility] [place] [facility] [address] [id number] [place] [address] Dec, [facility] [place] [facility] [address] [id number] [place] [address] Dec, [facility] [place] [facility] [address] [id number] [place] [address] Dec, [facility] [place] [facility] [address] [id number] [place] [address] Dec, [facility] [place] [facility] [address] [id number] [place] [address] Dec, [facility] [place] [facility] [address] [id number] [place] [address] Nov, [facility] [place] [facility] [address] [id number] [place] [address] Nov, [facility] [place] [facility] [address] [id number] [place] [address] Nov, [facility] [place] [facility] [address] [id number] [place] [address] Nov, [facility] [place] [facility] [address] [id number] [place] [address] Nov, [facility] [place] [facility] [address] [id number] [place] [address] Nov, [facility] [place] [facility] [address] [id number] [place] [address] Nov, [facility] [place] [facility] [address] [id number] [place] [address] Nov, [facility] [place] [facility] [address] [id number] [place] [address] Nov, [facility] [place] [facility] [address] [id number] [place] [address] Nov, [facility] [place] [facility] [address] [id number] [place] [address] October, [facility] [place] [facility] [address] [id number] [place] [address] October, [facility] [place] [facility] [address] [id number] [place] [address] October, [facility] [address] [id number] [place] [address] October, [facility] [address] [id number] [place] [address] October, [facility] [address] [id number] [place] [address] October, [facility] [address] [id number] [place] [address] Sep, [facility] [address] [id number] [place] [address] Sep, [facility] [address] [id number] [place] [address] Sep, [facility] [address] [id number] [place] [address] Sep, [facility] [address] [id number] [place] [address] Sep, [facility] [address] [id number] [place] [address] Sep, [facility] [address] [id number] [place] [address] Aug, [facility] [place] [facility] [address] [id number] [place] [address] Aug, [facility] [address] [id number] [place] [address] Aug, [facility] [place] [facility] [address] [id number] [place] [address] Aug, [facility] [place] [facility] [address] [id number] [place] [address] Aug, [facility] [place] [facility] [address] [id number] [place] [address] Jun, [facility] [address] [facility] [id number], [place] [address] Jun, [facility] [address], [place] [address] Jun, [facility] [id number], [place] [address] Jun, [facility] [address], [place] [address] Jun, [facility] [id number], [place] [address] Jun, [facility] [address], [place] [address] Jun, [facility] [address], [place] [address] Mar, [facility] [id number], [place] [address] Mar, IMMUNIZATIONS No Known Immunizations SOCIAL HISTORY Never Assessed REASON FOR VISIT EMR-[facility] PLAN OF CARE VITAL SIGNS MEDICATIONS Medication Instructions Dosage Frequency Start Date End Date Duration Status MiraLax 17 gram/dose take 17 g mixed with 8 oz. water or juice by Oral route 3 times per week every other day Apr, Active Proctofoam 1 % 1 3-4 times per day for 10 days 3-4 times daily rectally Apr, Active Pepcid 20 mg 1 tablet by Oral route 1 time per day Aug, Active Colace 100 mg 1 capsule by Oral route 2 times per day PRN Apr, Active Promethazine-Codeine 6.25-10 mg/5 mL 10 mL by Oral route every 6 hours for 7 day(s) Nov, Active Zithromax Z-Rogelio 250 mg 2 tablet by Oral route 1 time per day for 1 days then take 1 tab daily on days 2-5 Mar, Active RESULTS No Results PROCEDURES No Known [...]
--- OUTSIDE RECORDS SUMMARY | 2018-12-26 19:16 | XMS REPORT | Continuity of Care Document ---
Author Organization Unknown Address Unknown Allergies Active Description Code Type Severity Reaction Onset Reported/Identified Relationship to Patient Clinical Status Yes No Known Drug Allergies [id number] Drug Allergy Unknown N/A 03/19/2014 Yes erythromycin base [id number] Drug Allergy Unknown reports that he 01/14/2016 Yes adhesive tape [id number] Drug Allergy Unknown HIVES 03/08/2018 Medications There is no data. Problems Date Dx Coded Attending Type Code Diagnosis Diagnosed By 04/09/2013 SADA POND APRN 461.9 SINUSITIS ACUTE 04/09/2013 SLADE TELE[employer]ONE [employer] POWER OPERATOR, SARAH A 461.9 SINUSITIS ACUTE 04/09/2013 SLADE MONTESN, SARAH A 461.9 SINUSITIS ACUTE 04/09/2013 SLADE [employer] P[employer] OPERATOR, SARAH A 461.9 SINUSITIS ACUTE 04/09/2013 SLADE [employer] P[employer] OPERATOR, SARAH A 461.9 SINUSITIS ACUTE 04/09/2013 TORRES [...] ESTEFANIA K 461.9 SINUSITIS ACUTE 04/09/2013 [employer]ADE [employer] P[employer] OPERATOR, SARAH A 461.9 SINUSITIS ACUTE 04/09/2013 CRISTA ROSALES APRN 461.9 SINUSITIS ACUTE 04/09/2013 CRISTA ROSALES APRN 461.9 SINUSITIS ACUTE 07/12/2013 [employer] OPERATOR, SARAH A V72.41 TEST NEGATIVE RESULT 07/12/2013 [employer]ADE [employer] POWER OPERATOR, SARAH A V74.5 STD SCREEN 07/12/2013 [employer]ADE [employer] POWER OPERATOR, SARAH A V76.2 CERVICAL CANCER SCREENING (PAP SMEAR) 07/12/2013 [employer]ADE [employer] POWER OPERATOR, SARAH A V72.41 TEST NEGATIVE RESULT 07/12/2013 SLADE [employer] POWER OPERATOR, SARAH A V74.5 STD SCREEN 07/12/2013 SLADE TELE[employer] POWER OPERATOR, SARAH A V76.2 CERVICAL CANCER SCREENING (PAP SMEAR) 07/12/2013 SLADE TELE[employer] POWER OPERATOR, SARAH A V72.41 TEST NEGATIVE RESULT 07/12/2013 SLADE TELE[employer] POWER OPERATOR, SARAH A V74.5 STD SCREEN 07/12/2013 SLADE [...] CERVICAL CANCER SCREENING (PAP SMEAR) 07/12/2013 SLADE TE[employer] POWER OPERATOR, SARAH A V72.41 TEST NEGATIVE RESULT 07/12/2013 SLADE TE[employer] POWER OPERATOR, SARAH A V74.5 STD SCREEN 07/12/2013 SLADE TELE[employer] POWER OPERATOR, SARAH A V76.2 CERVICAL CANCER SCREENING (PAP SMEAR) 07/12/2013 MADL [employer] POWER OPERATOR, CRISTA L V72.41 TEST NEGATIVE RESULT 07/12/2013 MADL [employer] POWER OPERATOR, CRISTA L V74.5 STD SCREEN 07/12/2013 MADL TELE[employer] POWER OPERATOR, CRISTA L V76.2 CERVICAL CANCER SCREENING (PAP SMEAR) 07/12/2013 JEANETTE ROSALES APRNWNYA L V72.41 TEST NEGATIVE RESULT 07/12/2013 SAE ROSALES APRNA L V74.5 STD SCREEN 07/12/2013 CONNIE GAUTAM CRISTA L V76.2 CERVICAL CANCER SCREENING (PAP [...] APRNIDI A V72.42 TEST POSITIVE RESULT 09/12/2013 CONNIE GAUTAM CRISTA L V72.42 TEST POSITIVE RESULT 09/12/2013 CONNIE GAUTAM CRISTA L V72.42 TEST POSITIVE RESULT 09/15/2013 SLADE GAUTAM, SARAH A V22.1 , NORMAL OTHER 09/15/2013 SLADE MONTESN, SARAH A V22.1 , NORMAL OTHER 09/15/2013 SLADE MONTESN, SARAH A V22.1 , NORMAL OTHER 09/15/2013 [...] K V22.1 , NORMAL OTHER 09/15/2013 [employer]ADE [employer] P[employer] OPERATOR, SARAH A V22.1 , NORMAL OTHER 09/15/2013 MAD[employer] POWER OPERATOR, CRISTA L V22.1 , NORMAL OTHER 09/15/2013 MAD[employer] POWER OPERATOR, CRISTA L V22.1 , NORMAL OTHER 11/15/2013 [...] ESTEFANIA K V77.1 DIABETES SCREENING 11/15/2013 [employer] P[employer] OPERATOR, SARAH A V77.1 DIABETES SCREENING 11/15/2013 MADL [employer] POWER OPERATOR, CRISTA L V77.1 DIABETES SCREENING 11/15/2013 MAD[employer] POWER OPERATOR, CRISTA L V77.1 DIABETES SCREENING 01/09/2014 TORRES DO, ESTEFANIA K V78.0 ANEMIA SCREENING 01/09/2014 TORRES DO, ESTEFANIA K V78.0 ANEMIA SCREENING 01/09/2014 TORRES DO, ESTEFANIA K V78.0 ANEMIA SCREENING 01/09/2014 TORRES DO, ESTEFANIA K V78.0 ANEMIA SCREENING 01/09/2014 TORRES DO, ESTEFANIA K V78.0 ANEMIA SCREENING 01/09/2014 TORRES DO, ESTEFANIA K V78.0 ANEMIA SCREENING 01/09/2014 SHANEL JUNE APRNIDI A V78.0 ANEMIA SCREENING 01/09/2014 MADL [employer] POWER OPERATOR, CRISTA L V78.0 ANEMIA SCREENING 01/09/2014 MADL [employer] POWER OPERATOR, CRISTA L V78.0 ANEMIA SCREENING 02/22/2014 TORRES DO, ESTEFANIA K 649.60 UTERINE SIZE DATE DISCREPANCY - LGA 02/22/2014 TORRES DO, ESTEFANIA K 649.60 UTERINE SIZE DATE DISCREPANCY - LGA 02/22/2014 TORRES DO, ESTEFANIA K 649.60 UTERINE SIZE DATE DISCREPANCY - LGA 02/22/2014 SHANEL JUNE APRNIDI A 649.60 UTERINE SIZE DATE DISCREPANCY - LGA 02/22/2014 MADL TE[employer] POWER OPERATOR, CRISTA L 649.60 UTERINE SIZE DATE DISCREPANCY - LGA 02/22/2014 MADL TELE[employer] POWER OPERATOR, CRISTA L 649.60 UTERINE SIZE DATE DISCREPANCY - LGA 03/01/2014 TORRES DO, ESTEFANIA K V28.6 GBS SCREENING 03/01/2014 TORRES DO, ESTEFANIA K V28.6 GBS SCREENING 03/01/2014 TORRES DO, ESTEFANIA K V28.6 GBS SCREENING 03/01/2014 SHANEL JUNE APRNIDI A V28.6 GBS SCREENING 03/01/2014 MADL [employer] POWER OPERATOR, CRISTA L V28.6 GBS SCREENING 03/01/2014 MADL [employer] POWER OPERATOR, CRISTA L V28.6 GBS SCREENING 03/13/2014 TORRES DO, ESTEFANIA K 796.2 ELEVATED BLOOD PRESSURE READING WITHOUT DIAGNOSIS OF HYPERTENSION 03/13/2014 TORRES DO, ESTEFANIA K 796.2 ELEVATED BLOOD PRESSURE READING WITHOUT DIAGNOSIS OF HYPERTENSION 03/13/2014 SHANEL JUNE APRNIDI A 796.2 ELEVATED BLOOD PRESSURE READING WITHOUT DIAGNOSIS OF HYPERTENSION 03/13/2014 MADL [employer] POWER OPERATOR, CRISTA L 796.2 ELEVATED BLOOD PRESSURE READING WITHOUT DIAGNOSIS OF HYPERTENSION 03/13/2014 MADL [employer] POWER OPERATOR, CRISTA L 796.2 ELEVATED BLOOD PRESSURE READING WITHOUT DIAGNOSIS OF HYPERTENSION 03/21/2014 ESTEFANIA TORRES DO K Ot 642.31 03/21/2014 ESTEFANIA TORRES DO Ot 656.61 03/21/2014 ESTEFANIA TORRES DO Ot V06.1 03/21/2014 ESTEFANIA TORRES DO K Ot V27.0 04/26/2014 [employer] P[employer] OPERATOR, SARAH A 455.6 UNSPECIFIED HEMORRHOIDS WITHOUT COMPLICATION 04/26/2014 [employer]ADE [employer] POWER OPERATOR, SARAH A V04.81 FLU SHOT 04/26/2014 [employer]ADE [employer] POWER OPERATOR, SARAH A V24.2 F/U, ROUTINE 04/26/2014 MADL TELE[employer] POWER OPERATOR, CRISTA L 455.6 UNSPECIFIED HEMORRHOIDS WITHOUT COMPLICATION 04/26/2014 MADL TELE[employer] POWER OPERATOR, CRISTA L V04.81 FLU SHOT 04/26/2014 MADL TELE[employer] POWER OPERATOR, CRISTA L V24.2 F/U, ROUTINE 04/26/2014 MADL TELE[employer] POWER OPERATOR, CRISTA L 455.6 UNSPECIFIED HEMORRHOIDS WITHOUT COMPLICATION 04/26/2014 MADL TELE[employer] POWER OPERATOR, CRISTA L V04.81 FLU SHOT 04/26/2014 MADL TELE[employer] POWER OPERATOR, CRISTA L V24.2 F/U, ROUTINE 05/17/2014 MADL [employer] POWER OPERATOR, CRISTA L 724.2 BACK PAIN, LOWER 05/17/2014 MADL [employer] POWER OPERATOR, CRISTA L 724.2 BACK PAIN, LOWER 07/04/2014 MADL TE[employer] POWER OPERATOR, CRISTA L 727.49 OTHER GANGLION AND CYST OF SYNOVIUM TENDON AND BURSA 07/04/2014 MADL TE[employer] POWER OPERATOR, CRISTA L 789.00 ABDOMINAL PAIN UNSPECIFIED SITE 07/10/2014 MADL [employer] POWER OPERATOR, CRISTA L 789.1 HEPATOMEGALY 07/21/2014 BRIDGETT TORRES DOA K Ot 649.63 07/21/2014 MELISSA SLOAN ESTEFANIA K Ot 656.63 07/21/2014 MADL, CRISTA L APIARIST Ot 789.1 08/01/2014 MADL, CRISTA L APIARIST Ot 789.1 02/05/2015 MCKEONNALINI HOWARD DO Ot 727.43 02/05/2015 NALINI MCKEON DO Ot V72.84 02/08/2015 MELISSA SLOANESTEFANIA Ot 649.63 02/08/2015 MELISSA SLOANESTEFANIA Ot 656.63 02/08/2015 CRISTA ROSALES APIARIST Ot 789.1 02/08/2015 MELCROFT NALINI SLOAN D Ot 727.43 02/08/2015 MELCROFT NATHALIE SLOANTT D Ot V72.84 02/08/2015 MELCROFT NATHALIE SLOANTT D Ot 727.43 03/12/2015 AUDREY DE LOS SANTOS Ot 626.2 03/12/2015 AUDREY DE LOS SANTOS Ot 789.00 03/12/2015 AUDREY DE LOS SANTOS Ot E000.8 03/12/2015 AUDREY DE LOS SANTOS Ot E968.8 04/06/2015 TORRES ESTEFANIA SLOAN Ot 649.63 04/06/2015 TORRES ESTEFANIA SLOAN Ot 656.63 04/06/2015 CRISTA ROSALES APIARIST Ot 789.1 04/06/2015 MELCROFT NALINI SLOAN D Ot 727.43 04/06/2015 MELCROFT NALINI D Ot V72.84 04/19/2015 CRISTA ROSALES APIARIST Ot R10.2 08/09/2015 [place] APRN Ot [...] 656.63 09/04/2015 CRISTA ROSALES Ot 789.1 09/04/2015 NALINI MCKEON DO Ot 727.43 09/04/2015 NALINI MCKEON DO Ot V72.84 09/05/2015 [place] [employer] TE[employer] POWER OPERATOR Ot S61.011A 09/05/2015 [place] [employer] P[employer] OPERATOR Ot W26.0XXA 09/05/2015 [place] [employer] P[employer] OPERATOR Ot Y92.511 09/05/2015 [place] [employer] [employer] P[employer] OPERATOR Ot Y99.0 09/05/2015 [place] [employer] POWER OPERATOR Ot Z23 09/19/2015 YAZMIN CORTES, KYLE Pablo Ot R10.84 GENERALIZED ABDOMINAL PAIN 09/19/2015 YAZMNI CORTES, KYLE Pablo Ot Z32.02 ENCOUNTER FOR [...] R82.90 UNSPECIFIED ABNORMAL FINDINGS IN URINE 02/18/2016 CONNIE CRISTA Ventura APIARIST Ot R10.2 PELVIC AND PERINEAL PAIN 02/18/2016 DANICA HWANG DO Ot N91.2 AMENORRHEA, UNSPECIFIED 02/20/2016 ALISE CORTES, CARISSA Coleman Ot R07.9 CHEST PAIN, UNSPECIFIED 03/06/2016 ALISE CORTES, CARISSA Coleman Ot R07.9 CHEST PAIN, UNSPECIFIED 05/18/2016 ALISE CORTES, CARISSA Coleman Ot R07.9 CHEST PAIN, UNSPECIFIED 06/01/2016 [place] [employer] TE[employer] POWER OPERATOR Ot H92.02 OTALGIA, LEFT EAR 06/03/2016 [place] [employer] POWER OPERATOR Ot H92.02 OTALGIA, LEFT EAR 06/03/2016 CRISTA ROSALES APIARIST Ot R10.2 PELVIC AND PERINEAL PAIN 06/03/2016 DANICA HWANG DO Ot N91.2 AMENORRHEA, UNSPECIFIED 06/03/2016 ALISE CORTES, [...] Ot Z3A.08 8 WEEKS GESTATION OF 07/17/2016 CONNIE CRISTA Ventura APIARIST Ot R10.2 PELVIC AND PERINEAL PAIN 07/17/2016 DANICA HWANG DO Natalia Ot N91.2 AMENORRHEA, UNSPECIFIED 07/17/2016 ALISE CORTES, CARISSA Coleman Ot R07.9 CHEST PAIN, UNSPECIFIED 07/18/2016 KIARA MAO MD, Ot Z34.81 ENCOUNTER FOR SUPRVSN OF NORMAL PREGNANC 07/19/2016 DHEERAJ SLOAN ISIDRO Meka Ot F17.210 NICOTINE DEPENDENCE, CIGARETTES, UNCOMPL 07/19/2016 DHEERAJ SLOAN ISIDRO K Ot K02.9 DENTAL CARIES, UNSPECIFIED 07/19/2016 DHEERAJ SLOAN ISIDRO K Ot K08.89 OTHER SPECIFIED DISORDERS OF TEETH AND S 07/19/2016 DHEERAJ ISIDRO K Ot O99.331 SMOKING (TOBACCO) COMPLICATING [...] GESTATION OF NOT SPEC 10/05/2017 MADCRISTA Ventura APIARIST Ot R10.2 PELVIC AND PERINEAL PAIN 10/05/2017 [...] GESTATION OF NOT SPEC 10/06/2017 MADL, CRISTA Ventura APIARIST Ot N83.202 UNSPECIFIED OVARIAN CYST, LEFT SIDE 10/22/2017 MADL, CRISTA L APIARIST Ot N83.202 UNSPECIFIED OVARIAN CYST, LEFT SIDE 01/30/2018 Ot E78.00 PURE HYPERCHOLESTEROLEMIA, UNSPECIFIED 01/30/2018 Ot G43.909 MIGRAINE, UNSP, NOT INTRACTABLE, WITHOUT 01/30/2018 Ot J02.9 ACUTE PHARYNGITIS, UNSPECIFIED 01/30/2018 Ot K21.9 GASTRO-ESOPHAGEAL REFLUX DISEASE WITHOUT 01/30/2018 Ot Z87.891 PERSONAL [...] Ot K29.70 GASTRITIS, UNSPECIFIED, WITHOUT BLEEDING 03/09/2018 MCKEON NALINI SLOAN D Ot Z68.41 BODY MASS INDEX (BMI) 40.0-44.9, ADULT 03/11/2018 NALINI MCKEON DO Ot E66.01 MORBID (SEVERE) OBESITY DUE TO EXCESS CA 03/11/2018 NALINI MCKEON DO D Ot F17.210 NICOTINE DEPENDENCE, CIGARETTES, UNCOMPL 03/11/2018 MCKEON NALINI SLOAN D Ot K21.9 GASTRO-ESOPHAGEAL REFLUX DISEASE WITHOUT 03/11/2018 [facility] Ot K29.70 GASTRITIS, UNSPECIFIED, WITHOUT BLEEDING 03/11/2018 [facility] Ot Z68.41 BODY MASS INDEX (BMI) 40.0-44.9, ADULT 03/12/2018 CRISTA ROSALES APIARIST Ot R10.2 PELVIC AND PERINEAL PAIN 03/12/2018 [...] GESTATION OF NOT SPEC 03/12/2018 CRISTA ROSALES APIARIST Ot N83.202 UNSPECIFIED OVARIAN CYST, LEFT SIDE 03/12/2018 BRENDA LALA Ot E78.5 HYPERLIPIDEMIA, UNSPECIFIED 03/12/2018 BRENDA LALA Ot R00.2 PALPITATIONS 03/12/2018 ZORAN CREWS, BRENDA K Ot R06.00 DYSPNEA, UNSPECIFIED 03/12/2018 ZORAN CREWS, BRENDA K Ot R42 DIZZINESS AND GIDDINESS 03/15/2018 MCKEON DO, NALINI D Ot K21.9 GASTRO-ESOPHAGEAL REFLUX DISEASE WITHOUT 03/15/2018 MCKEON DO, NALINI D Ot R07.9 CHEST PAIN, UNSPECIFIED 03/15/2018 MCKEON DO, NALINI D Ot R16.0 HEPATOMEGALY, NOT ELSEWHERE CLASSIFIED 03/15/2018 BRENDA LALA Ot E78.5 HYPERLIPIDEMIA, UNSPECIFIED 03/15/2018 ZORAN CREWS BRENDA K Ot R00.2 PALPITATIONS 03/15/2018 ZORAN CREWS, BRENDA K Ot R06.00 DYSPNEA, UNSPECIFIED 03/15/2018 ZORAN CREWS BRENDA K Ot R42 DIZZINESS AND GIDDINESS 03/22/2018 MCKENO DO, NALINI D Ot K21.9 GASTRO-ESOPHAGEAL REFLUX [...] Ot K29.70 GASTRITIS, UNSPECIFIED, WITHOUT BLEEDING 04/01/2018 MCKEON DO, NALINI D Ot Z68.41 BODY MASS INDEX (BMI) 40.0-44.9, ADULT 04/01/2018 MCKEONNALINI HOWARD DO Ot Z01.818 ENCOUNTER FOR OTHER PREPROCEDURAL [...] Ot Z87.891 PERSONAL HISTORY OF NICOTINE DEPENDENCE 05/11/2018 SHANNON JASSO MD Ot B37.3 CANDIDIASIS OF VULVA AND VAGINA 05/11/2018 SHANNON JASSO MD Ot E78.00 PURE HYPERCHOLESTEROLEMIA, UNSPECIFIED 05/11/2018 SHANNON JASSO MD Ot G43.909 MIGRAINE, UNSP, NOT INTRACTABLE, WITHOUT 05/11/2018 SHANNON JASSO MD Ot K21.9 GASTRO-ESOPHAGEAL REFLUX DISEASE WITHOUT 05/11/2018 SHANNON JASSO MD Ot N36.8 OTHER SPECIFIED DISORDERS OF URETHRA 05/11/2018 SHANNON JASSO MD Ot N39.0 URINARY TRACT INFECTION, SITE NOT SPECIF 05/11/2018 SHANNON JASSO MD, Ot Z87.448 PERSONAL HISTORY OF OTHER DISEASES OF UR 05/11/2018 SHANNON JASSO MD Ot Z87.891 PERSONAL HISTORY OF NICOTINE DEPENDENCE 05/11/2018 SHANNON JASSO MD Ot Z90.49 ACQUIRED ABSENCE OF OTHER SPECIFIED PART 05/11/2018 SHANNON JASSO MD Ot Z91.048 OTHER NONMEDICINAL SUBSTANCE ALLERGY STA Procedures Code Description [place] [address] [facility] 07/12/2013 32793 PAP SMEAR 07/12/2013 Q0091 PAP SMEAR OBTAIN SMEAR 07/12/2013 52494 TEST, URINE (IN-HOUSE) 07/12/2013 03516 TRICHOMONAS (IN-HOUSE) 07/12/2013 38597 CULTURE UROGENITAL 07/14/2013 32905 TEST, URINE (IN-HOUSE) 09/12/2013 48567 ROUTINE VENIPUNCTURE 09/15/2013 27449 UA OB DIP 09/15/2013 84031 URINE DRUG SCREEN (IN-HOUSE) 09/15/2013 06918 TSH 09/15/2013 35597 [facility] 09/15/2013 71171 HIV ([facility]) 09/15/2013 79884 RUBELLA ANTIBODY, IGG 09/15/2013 23319 ANTIBODY SCREEN (order) 09/15/2013 89935 BLOOD TYPE/Rh FACTOR 09/15/2013 36679 HEP B SURFACE ANTIGEN (STATE) 09/15/2013 11949 CBC 09/15/2013 02206 UA LONG DIP 10/12/2013 00573 TRICHOMONAS (IN-HOUSE) 10/12/2013 50775 GC/CHLAM PROBE (STATE) 10/12/2013 86049 CULTURE UROGENITAL 10/15/2013 92128 ROUTINE VENIPUNCTURE 11/15/2013 24296 US OB - COMPLETE >14 WEEKS 11/15/2013 64901 UA OB DIP 11/15/2013 60343 GLUCOSE REYNA 1 HOUR 11/15/2013 62903 UA OB DIP 12/13/2013 79842 ROUTINE VENIPUNCTURE 01/09/2014 55664 GLUCOSE REYNA 3 HOUR 01/09/2014 89055 UA OB DIP 01/09/2014 18847 GLUCOSE REYNA 1 HOUR 01/10/2014 14566 CBC 01/10/2014 49913 UA OB DIP 01/23/2014 36534 UA OB DIP 02/06/2014 63282 ROUTINE VENIPUNCTURE 02/22/2014 54912 UA OB DIP 02/22/2014 24851 GLUCOSE FINGER STICK 02/22/2014 24539 VARICELLA ANTIBODY 02/23/2014 81436 UA OB DIP 03/01/2014 02450 US OB - FOLLOW UP 03/02/2014 32028 CULTURE GROUP B STREP VAG 03/03/2014 36542 ROUTINE VENIPUNCTURE 03/13/2014 2000F BLOOD PRESSURE CHECK 03/13/2014 40774 UA OB DIP 03/13/2014 71546 GLUCOSE FINGER STICK 03/13/2014 [id number] GFR CALC (RESULT ONLY) 03/14/2014 07502 CMP 03/14/2014 73257 LDH 03/14/2014 85332 URIC ACID 03/14/2014 95856 CBC 03/14/2014 05871 URINE PROTEIN 24 HOUR 03/16/2014 2000F BLOOD PRESSURE CHECK 03/17/2014 80121 ROUTINE VENIPUNCTURE 05/17/2014 00671 XRAY LUMBAR SPINE 2 OR 3 VIEWS 05/17/2014 47532 CMP 05/17/2014 16091 CBC 05/17/2014 63511 XRAY ABDOMEN 2 VIEWS 07/04/2014 97161 US ABDOMINAL ULTRASOUND, COMPLETE 07/04/2014 44206MI DRAINAGE OF AMNIOTIC FL, THERAP FROM POC 02/10/2017 [id number] DELIVERY OF PRODUCTS OF CONCEPTION, EXTE 02/10/2017 Results Test Result Range Complete urinalysis with reflex to culture - 02/11/16 22:45 Urine color determination YELLOW NRG Urine clarity determination VERY CLOUDY NRG Urine pH measurement by test strip 8 5-9 Specific gravity of urine by test strip 1.015 1.016-1.022 Urine protein assay by test strip, semi-quantitative [...] sediment leukocyte count by microscopy (number/high power field) [HPF] NRG Bacteria detection in urine sediment [...] URINE CULTURE RESULTS 10,000/ML - 100,000/ML NRG Complete urinalysis with reflex to culture - 01/25/17 21:30 Urine color determination YELLOW NRG Urine clarity determination SLIGHTLY CLOUDY NRG Urine pH measurement by test strip 5 5-9 Specific gravity of urine by test strip 1.025 1.016-1.022 Urine protein assay by test strip, semi-quantitative [...] sediment leukocyte count by microscopy (number/high power field) [HPF] NRG Bacteria detection in urine sediment [...] culture - 01/25/17 21:30 Bacterial urine culture [id number] NRG COLONY COUNT >100,000/ML NRG FTX;REPORTABLE PLUS, [...] Meropenem susceptibility test by minimum inhibitory concentration <= NRG Nitrofurantoin susceptibility test by minimum inhibitory concentration 128 NRG Aztreonam susceptibility test by minimum inhibitory concentration >= NRG Complete urinalysis with reflex to culture - 02/07/17 00:50 Urine color determination YELLOW NRG Urine clarity determination VERY CLOUDY NRG Urine pH measurement by test strip 6 5-9 Specific gravity of urine by test strip 1.025 1.016-1.022 Urine protein assay by test strip, semi-quantitative [...] sediment leukocyte count by microscopy (number/high power field) [HPF] NRG Bacteria detection in urine sediment [...] culture - 02/07/17 00:50 Bacterial urine culture [id number] NRG COLONY COUNT >100,000/ML NRG FTX;REPORTABLE PLUS, NRG FREE TEXT ENTRY 2 MIXED GRAM POSITIVES <10,000/ML NRG Bacterial susceptibility panel - 02/07/17 00:50 Gentamicin susceptibility test by minimum inhibitory concentration <= NRG Trimethoprim/sulfamethoxazole susceptibility test by minimum inhibitoryconcentration <= NRG Ampicillin susceptibility test by minimum inhibitory concentration >= NRG Tobramycin susceptibility test by minimum inhibitory concentration <= NRG Cefazolin susceptibility test by minimum inhibitory concentration <= NRG Ceftriaxone susceptibility test by minimum inhibitory concentration <= NRG Ampicillin/sulbactam susceptibility test by minimum inhibitory concentration 4 NRG Piperacillin/tazobactam susceptibility test by minimum inhibitory concentration <= NRG Ciprofloxacin susceptibility test by minimum inhibitory concentration <= NRG Meropenem susceptibility test by minimum inhibitory concentration <= NRG Nitrofurantoin susceptibility test by minimum inhibitory concentration 32 NRG Aztreonam susceptibility test by minimum inhibitory concentration <= NRG Extended spectrum beta lactamase (ESBL) producing [...] Automated erythrocyte mean corpuscular hemoglobin concentration measurement (mass/volume) 34 g/dL 32-36 Automated erythrocyte distribution width ratio 14.9 % 10.0- 14.5 Automated blood platelet count (count/volume) 151 10*3/uL [...] Blood monocytes automated count (number/volume) 0.6 10*3 0.0- 1.0 Automated eosinophil count 0.1 10*3/uL 0.0-0.3 Automated blood basophil count (count/volume) 0.0 10*3/uL 0.0-0.1 Blood type T Indirect antibody screen panel - 02/10/17 07:25 ABO+Rh group AP NRG Transfusion band number [id number] NRG Blood group antibody screen NEGATIVE NRG [...] Automated erythrocyte mean corpuscular hemoglobin concentration measurement (mass/volume) 33 g/dL 32-36 Automated erythrocyte distribution width ratio 14.8 % 10.0- 14.5 Automated blood platelet count (count/volume) 140 10*3/uL [...] Blood monocytes automated count (number/volume) 0.7 10*3 0.0- 1.0 Automated eosinophil count 0.1 10*3/uL 0.0-0.3 Automated blood basophil count (count/volume) 0.0 10*3/uL 0.0-0.1 Urine beta human chorionic gonadotropin (hCG) measurement - 03/09/18 10:00 Urine beta human chorionic gonadotropin (hCG) measurement NEGATIVE NEGATIVE Urine beta human chorionic gonadotropin (hCG) measurement - 04/01/18 09:55 Urine beta human chorionic gonadotropin (hCG) measurement NEGATIVE NEGATIVE Methicillin resistant Staphylococcus aureus (MRSA) screening culture - 04/01/18 10:15 Methicillin resistant Staphylococcus aureus (MRSA) screening culture NEG NRG Complete urinalysis with reflex to culture - 05/09/18 07:05 Urine color determination YELLOW NRG Urine clarity determination VERY CLOUDY NRG Urine pH measurement by test strip 5 5-9 Specific gravity of urine by test strip 1.020 1.016-1.022 Urine protein assay by test strip, semi-quantitative 3+ NEGATIVE Urine glucose detection by automated test [...] erythrocyte count by microscopy (number/high power field) TNTC NRG Automated urine sediment leukocyte count by microscopy (number/high power field) TNTC NRG Bacteria detection in urine sediment by light microscopy MODERATE NRG Squamous epithelial cells detection in urine sediment by light microscopy RARE NRG Crystals detection in urine sediment by light microscopy NONE NRG Casts detection in urine sediment by light microscopy NONE NRG Mucus detection in urine sediment by light microscopy NEGATIVE NRG Complete urinalysis with reflex to culture YES NRG Yeast detection in urine sediment by light microscopy MODERATE NRG Urine beta human chorionic gonadotropin (hCG) measurement - 05/09/18 07:05 Urine beta human chorionic gonadotropin (hCG) measurement NEGATIVE NEGATIVE Bacterial urine culture - 05/09/18 07:05 Bacterial urine culture SEE REPORT NRG COLONY COUNT . NRG TSH - 09/08/18 11:40 TSH 1.59 mIU/L NRG Encounters ACCT No. Visit Date/Time Discharge Status Pt. Type Provider Facility Loc./Unit Complaint [id number] 12/22/2018 11:30:00 12/22/2018 23:59:59 CLS Outpatient CRISTA ROSALES APRN [facility] [id number] 09/08/2018 10:40:00 Document Registration [id number] 07/04/2014 13:31:00 07/04/2014 23:59:59 CLS Outpatient CRISTA ROSALES APRN [id number] 05/17/2014 13:50:00 05/17/2014 23:59:59 CLS Outpatient CRISTA ROSALES APRN [id number] 04/26/2014 14:47:00 04/26/2014 23:59:59 CLS Outpatient SLADE SARAH GAUTAM [id number] 03/17/2014 09:57:00 03/17/2014 23:59:59 CLS Outpatient ESTEFANIA TORRES DO [id number] 03/13/2014 15:53:00 03/13/2014 23:59:59 CLS Outpatient TORRES DOESTEFANIA [id number] 02/22/2014 10:12:00 02/22/2014 23:59:59 CLS Outpatient TORRES DOESTEFANIA [id number] 02/06/2014 13:49:00 02/06/2014 23:59:59 CLS Outpatient TORRES DOESTEFANIA [id number] 01/23/2014 15:13:00 01/23/2014 23:59:59 CLS Outpatient MELISSA DOESTEFANIA [id number] 01/09/2014 16:34:00 01/09/2014 23:59:59 CLS Outpatient TORRES DOESTEFANIA [id number] 12/13/2013 14:10:00 12/13/2013 23:59:59 CLS Outpatient TORRES DOESTEFANIA [id number] 12/13/2013 14:10:00 12/13/2013 23:59:59 CLS Outpatient TORRES DOESTEFANIA [id number] 11/15/2013 13:57:00 11/15/2013 23:59:59 CLS Outpatient ESTEFANIA TORRES DO [id number] 11/15/2013 13:57:00 11/15/2013 23:59:59 CLS Outpatient TORRES DOESTEFANIA [id number] 10/12/2013 14:55:00 10/12/2013 23:59:59 CLS Outpatient SARAH JUNE APRN [id number] 10/12/2013 14:55:00 10/12/2013 23:59:59 CLS Outpatient SARAH JUNE APRN [id number] 09/15/2013 14:50:00 09/15/2013 23:59:59 CLS Outpatient SARAH JUNE APRN [id number] 07/12/2013 08:51:00 07/12/2013 23:59:59 CLS Outpatient SARAH JUNE APRN [id number] 04/09/2013 13:20:00 04/09/2013 23:59:59 CLS Outpatient SADA POND APRN [id number] 05/09/2018 06:56:00 05/09/2018 07:50:00 DIS Outpatient SHANNON JASSO MD [facility] [id number] 04/01/2018 09:41:00 04/01/2018 17:20:00 DIS Outpatient NALINI MCKEON DO [facility] [address] SDC BILIARY DYSKINESIA [id number] 03/31/2018 06:09:00 03/31/2018 10:49:00 DIS Outpatient NALINI MCKEON DO [facility] [address] PREOP BILIARY DYSKINESIA [id number] 03/18/2018 09:46:00 03/18/2018 23:59:59 CLS Outpatient NALINI MCKEON DO [facility] [address] CARD CHEST PAIN,GERD [id number] 03/12/2018 07:07:00 03/12/2018 23:59:59 CLS Outpatient NALINI MCKEON DO [facility] [address] RAD CHEST PAIN,GERD [id number] 03/09/2018 08:56:00 03/09/2018 11:30:00 DIS Outpatient NALINI MCKEON DO [facility] [address] ENDO GERD [id number] 03/08/2018 09:15:00 03/08/2018 09:19:00 DIS Outpatient NALINI MCKEON DO [facility] [address] PREOP EGD [id number] 02/24/2018 10:24:00 02/24/2018 23:59:59 CLS Outpatient BRENDA LALA [facility] [address] CARD R42 DIZZINESS [id number] 10/05/2017 13:02:00 10/05/2017 23:59:59 CLS Outpatient MADLCRISTA APIARIST [facility] [address] RAD R10.2 PELVIC PAIN [id number] 02/10/2017 06:57:00 02/12/2017 11:30:00 DIS Inpatient KIARA MAO MD [facility] [address] LDRP INDUCTION [id number] 02/09/2017 13:41:00 02/09/2017 23:59:59 CLS Outpatient KIARA MAO MD [facility] [address] RAD POSITION [id number] 02/07/2017 00:45:00 02/07/2017 02:33:00 DIS Outpatient PEPE MEEK MD [facility] [address] WSo CONTRACTIONS [id number] 01/25/2017 21:03:00 01/25/2017 22:24:00 DIS Outpatient ANOOP HWANG MD [facility] [address] WSo CONTRACTIONS [id number] 12/29/2016 09:49:00 12/29/2016 23:59:59 CLS Outpatient KIARA MAO MD [facility] [address] RAD FUNDAL HEIGHT INCREASE [id number] 12/07/2016 16:52:00 12/07/2016 18:10:00 DIS Outpatient ANOOP HWANG MD [facility] [address] WSo ABD PAIN/PRESSURE [id number] 10/09/2016 13:28:00 10/09/2016 23:59:59 CLS Outpatient KIARA MAO MD [facility] [address] RAD EVAL SPINE F/U [id number] 09/18/2016 13:31:00 09/18/2016 23:59:59 CLS Outpatient KIARA MAO MD [facility] [address] RAD SURVEY [id number] 07/17/2016 10:22:00 07/17/2016 23:59:59 CLS Outpatient KIARA MAO MD [facility] [address] RAD NORMAL IN MULTIGRAVIDA [id number] 07/13/2016 23:34:00 07/14/2016 00:22:00 DIS Emergency ISIDRO ESQUEDA DO [facility] [address] ER FAICAL PAIN EAR ACHE [id number] 06/01/2016 19:44:00 06/01/2016 20:02:00 DIS Emergency LAKE LANDA APRN [facility] [address] ER EAR ACHE [id number] 05/19/2016 10:30:00 05/19/2016 23:59:59 CLS Preadmit CARISSA CARRERO MD [facility] [address] CARD CHEST PAIN [id number] 02/18/2016 10:30:00 05/18/2016 00:01:00 DIS Outpatient CARISSA CARRERO MD [facility] [address] CARD CHEST PAIN [id number] 02/11/2016 22:18:00 02/11/2016 23:41:00 DIS Emergency SHANNON JASSO MD [facility] [address] ER DECREASE IN URINATION [id number] 01/14/2016 13:37:00 01/14/2016 14:23:00 DIS Emergency AUDREY DE LOS SANTOS [facility] [address] ER COUGH/CONGESTION [id number] 11/28/2015 15:02:00 11/28/2015 23:59:59 CLS Outpatient DANICA HWANG DO [facility] [address] RAD AMENORRHEA [id number] 10/16/2015 06:11:00 10/16/2015 08:40:00 DIS Emergency LOUISA CORTES, SHANNON Espinoza [facility] [address] ER NUMB ON HEAD,SHAKES ALL OVER,KNEE PAIN [id number] 09/19/2015 06:53:00 09/19/2015 09:35:00 DIS Emergency YAZMIN CORTES, KYLE Pablo [facility] [address] ER LOWER ABD PAIN [id number] 09/04/2015 20:40:00 09/04/2015 21:08:00 DIS Emergency LA[place] LANDA [employer] [facility] [address] ER R HAND THUMB LAC [id number] 08/09/2015 11:58:00 08/09/2015 14:32:00 DIS Emergency LAKE 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 [employer]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 [facility] [address] ER SORE THROAT [id number] 04/06/2015 11:54:00 04/06/2015 23:59:59 CLS Outpatient MADLSAEA L APIARIST [facility] [address] RAD PELVIC PAIN [id number] 03/12/2015 18:20:00 03/12/2015 23:23:00 DIS Emergency AUDREY DE LOS SANTOS [facility] [address] ER [id number] 02/08/2015 08:08:00 02/08/2015 14:30:00 DIS Outpatient NALINI MCKEON DO [facility] [address] SDC [id number] 02/01/2015 14:28:00 02/01/2015 23:59:59 CLS Outpatient NALINI MCKEON DO [facility] [address] PREOP [id number] 07/19/2014 08:41:00 07/19/2014 23:59:59 CLS Outpatient MADLSAEA L APIARIST [facility] [address] RAD [id number] 03/19/2014 00:35:00 03/21/2014 17:10:00 DIS Inpatient ESTEFANIA TORRES DO [facility] [address] WS [id number] 03/01/2014 11:59:00 03/01/2014 23:59:59 CLS Outpatient ESTEFANIA TORRES DO [facility] [address] RAD [id number] 01/30/2018 17:20:00 Document Registration
--- NOTE | 2018-12-26 19:30 | ED EENT ---
History of Present Illness General Chief Complaint: Dental Problems/Pain Stated Complaint: TOOTHACHE Nursing Triage Note: Patient advises she was seen this morning secondary to dental pain. She states that the pain medication she was provided per Dr. Bowden is not working. Source: patient Exam Limitations: no limitations History of Present Illness Date Seen by Provider: Dec 26, 2018 Time Seen by Provider: 19:30 Initial Comments 28-year-old female patient presents to the emergency department with complaints of the naproxen is not relieving her dental pain. Patient was seen earlier today by Dr. Bowden and prescribed naproxen, Cleocin, and viscous lidocaine. Patient states she isn't not able to use the viscous lidocaine due to gagging. She reports taking the naproxen and Cleocin as instructed. Last dose of naproxen at 1700. Location: facial, dental Prearrival Treatment: over the counter meds, prescription meds Modifying Factors: Worse With Other (no improvement with naproxen) Allergies and Home Medications Allergies Coded Allergies: No Known Drug Allergies (Unverified , 12/26/18) Home Medications Cephalexin 500 Mg Tablet, 500 MG PO BID Prescribed by: SHANNON JASSO on 05/09/18 0743 Clindamycin HCl 300 Mg Capsule, 300 MG PO QID Prescribed by: ISIDRO BOWDEN on 12/26/18 0815 Lidocaine HCl 15 Ml Solution, 15 ML MM Q 1-2 HOURS Prescribed by: ISIDRO BOWDEN on 12/26/18 0815 Naproxen 500 Mg Tablet, 500 MG PO BID Prescribed by: ISIDRO BOWDEN on 12/26/18 0815 Pantoprazole Sodium 40 Mg Tablet., 40 MG PO DAILY, (Reported) Patient Home Medication List Home Medication List Reviewed: Yes Review of Systems Review of Systems Constitutional: No chills, No diaphoresis, No fever, No malaise Eyes: No Symptoms Reported Ears: No Symptoms Reported Nose: no symptoms reported Mouth: see HPI Throat: no symptoms reported Respiratory: no symptoms reported Cardiovascular: no symptoms reported Gastrointestinal: no symptoms reported Skin: no symptoms reported Neurological: No Symptoms Reported All Other Systems Reviewed Negative Unless Noted: Yes (Negative excepted noted.) Past Lsvmzfu-Zcwnef-Lnjezd Hx Past Med/Social Hx: Reviewed Nursing Past Med/Soc Hx Patient Social History Alcohol Use: Denies Use Recreational Drug Use: No Smoking Status: Former Smoker Type Used: Cigarettes Former Smoker, Quit: Mar 22, 2016 2nd Hand Smoke Exposure: No Recent Foreign Travel: No Contact w/Someone Who Travel: No Recent Infectious Disease Expo: No Recent Hopitalizations: No Immunizations Up To Date Tetanus Booster (TDap): Less than 5yrs PED Vaccines UTD: Yes Seasonal Allergies Seasonal Allergies: No Past Medical History Surgeries: Yes (ganglion cyst on wrist ) Appendectomy, Orthopedic Respiratory: No Cardiac: Yes High Cholesterol Neurological: Yes Headaches /Migraines Reproductive Disorders: No Female Reproductive Disorders: Menstrual Problems Genitourinary: No Gastrointestinal: Yes (lactose intolerance) Gastroesophageal Reflux, Gall Bladder Disease Musculoskeletal: No Endocrine: No HEENT: Yes (DENTAL CARIES) Cancer: No Psychosocial: No Integumentary: No Blood Disorders: No Adverse Reaction/Blood Tranf: No Family Medical History Reviewed Nursing Family Hx Patient reports no known family medical history. No Pertinent Family Hx Physical Exam Vital Signs Vital Signs - First Documented 12/26/18 19:11 Temp 98.2 Pulse 100 Resp 14 B/P (MAP) 150/108 (122) Pulse Ox 99 O2 Delivery Room Air Height, Weight, BMI Height: 5'4.00" Weight: 250lbs. 0.0oz. 113.253581vu; 41.6 BMI Method:Stated General Appearance: WD/WN, no apparent distress Eyes: bilateral eye normal inspection, bilateral eye PERRL, bilateral eye EOMI Ears: bilateral ear auricle normal, bilateral ear canal normal, bilateral ear TM normal Nose: normal inspection Mouth/Throat: pharynx normal, dental tenderness (left upper dental tenderness with swelling of the gums); No excessive drooling; maxillary swelling (left maxillary swelling); No trismus, No uvula swelling, No voice changes Neck: non-tender, full range of motion, supple, normal inspection Cardiovascular: regular rate, rhythm, no murmur Respiratory: lungs clear, normal breath sounds, no respiratory distress, no accessory muscle use Neurologic/Psychiatric: alert, normal mood/affect, oriented x 3 Skin: normal color, warm/dry Progress/Results/Core Measures Results/Orders Vital Signs/I&O 12/26/18 19:11 Temp 98.2 Pulse 100 Resp 14 B/P (MAP) 150/108 (122) Pulse Ox 99 O2 Delivery Room Air Departure Impression Primary Impression: Dental infection Disposition: 01 HOME, SELF-CARE Condition: Improved Departure-Patient Inst. Decision time for Depature: 19:45 Referrals: CECILIA SANTOS DDS, DANIEL J MD (PCP/Family) Primary Care Physician Patient Instructions: Dental Pain (DC) Add. Discharge Instructions: All discharge instructions reviewed with patient and/or family. Voiced understanding. Medications as instructed. Continue the naproxen as ordered. Tylenol extra strength ggvy-sbu-lapuidd as directed for pain. Ice packs as needed for pain. Soft diet as tolerated. Follow-up with Dr. SANTOS as an outpatient, call tomorrow morning for appointment time. Return to the emergency department for worsened symptoms or any other concerns. Scripts Tramadol HCl (Tramadol HCl) 50 Mg Tablet 50 MG PO Q6H PRN for PAIN for 3 Days, #10 TAB 0 Refills Prov: AUDREY NEVAREZ 12/26/18 AUDREY NEVAREZ Dec 26, 2018 19:30
[2018-12-26] MEDS ORDERED: TRAM50TA2 PO (19:46)
[2018-12-26] MEDS ORDERED: RX-TRAMADOL 50 MG (ULTRAM) TAB PPK#4 PO STA (19:47)
[2018-12-26 19:53] VITALS: BP 150/108
== END 2018-12-26 19:56 | disposition home or self-care (01) ==
LOC: EDUNIT# 19:04 → ER 19:06
DX: K04.7 Periapical abscess without sinus (principal); E78.00 Pure hypercholesterolemia, unspecified; G43.909 Migraine, unspecified, not intractable, without status migrainosus; K21.9 Gastro-esophageal reflux disease without esophagitis; Z87.891 Personal history of nicotine dependence; Z90.49 Acquired absence of other specified parts of digestive tract
CPT/HCPCS: 99283

== ENCOUNTER 2019-01-07 20:18 | Emergency (ER) | payer MEDICAID ==
[~2019-01-07] VITALS: Ht 162.6 cm; Wt 115.7 kg
[~2019-01-07 20:18] MED LIST changes: +TRAM50TA2 PO
[2019-01-07] MEDS ORDERED: TRIAMCINOLONE ACET (KENALOG-40) 40 MG/ML 1 ML VIAL IM ONE (20:30)
--- NOTE | 2019-01-07 20:32 | ED Integumentary General ---
General Stated Complaint: RASH Source: patient Exam Limitations: no limitations History of Present Illness Date Seen by Provider: Jan 07, 2019 Time Seen by Provider: 20:27 Initial Comments To ER by private vehicle with reports of a rash to the popliteal fossa right leg and posterior left calf present for one week, she suspects that this is due to her pepper plant at home. She asserts that it couldn't possibly be poison diego because this rash has blisters. She also states that she has "an elephant on my chest" for 3 days. She does have some mild associated shortness of breath, tried her child's inhaler without improvement, no fevers or chills. No nausea or vomiting. She is on oral estrogen. Timing/Duration: constant Severity: moderate Location: extremities Possible Cause: no cause identified Associated Symptoms: blisters, change in skin texture Allergies and Home Medications Allergies Coded Allergies: No Known Drug Allergies (Unverified , 12/26/18) Patient Home Medication List Home Medication List Reviewed: Yes Review of Systems Review of Systems Constitutional: see HPI EENTM: see HPI Respiratory: see HPI; No cough; short of breath Cardiovascular: no symptoms reported Genitourinary: no symptoms reported Musculoskeletal: no symptoms reported Skin: no symptoms reported Psychiatric/Neurological: No Symptoms Reported Endocrine: No Symptoms Reported Past Emedupg-Gvjjpt-Bkeafj Hx Patient Social History Type Used: Cigarettes Former Smoker, Quit: Mar 22, 2016 2nd Hand Smoke Exposure: No Recent Foreign Travel: No Contact w/Someone Who Travel: No Recent Hopitalizations: No Immunizations Up To Date Tetanus Booster (TDap): Less than 5yrs PED Vaccines UTD: Yes Seasonal Allergies Seasonal Allergies: No Past Medical History Surgeries: Yes (ganglion cyst on wrist ) Appendectomy, Orthopedic Respiratory: No Cardiac: Yes High Cholesterol Neurological: Yes Headaches /Migraines Reproductive Disorders: No Female Reproductive Disorders: Menstrual Problems Genitourinary: No Gastrointestinal: Yes (lactose intolerance) Gastroesophageal Reflux, Gall Bladder Disease Musculoskeletal: No Endocrine: No HEENT: Yes (DENTAL CARIES) Cancer: No Psychosocial: No Integumentary: No Blood Disorders: No Adverse Reaction/Blood Tranf: No Family Medical History Patient reports no known family medical history. No Pertinent Family Hx Physical Exam Vital Signs Vital Signs - First Documented 01/07/19 20:21 Temp 97.5 Pulse 93 Resp 18 B/P (MAP) 133/91 (105) Pulse Ox 99 O2 Delivery Room Air Capillary Refill : General Appearance: WD/WN, no apparent distress Cardiovascular: regular rate, rhythm, no murmur Respiratory: lungs clear, normal breath sounds, no respiratory distress, no accessory muscle use Neurologic/Psychiatric: alert, normal mood/affect, oriented x 3 Skin: normal color, warm/dry Skin Problem Location: lower extremities Skin Problem Character: erythema, other (5 cm circular erythematous elevated papulovesicular rash to the popliteal fossa right knee with a few linear streaks of similar appearing rash as well. Additional similar appearing rash to the posterior left calf. These are consistent with a rhus dermatitis) Progress/Results/Core Measures Results/Orders Lab Results Laboratory Tests Test 01/07/19 20:40 01/07/19 20:45 01/07/19 21:09 Range/Units D-Dimer 0.47 0.00-0.49 UG/ML Urine Test NEGATIVE NEGATIVE My Orders Orders - LA[place] LANDA APRN Hcg,Qualitative Urine (01/07/19 20:26) Chest 1 View, Ap/Pa Only (01/07/19 20:26) Ekg Tracing (01/07/19 20:26) Fibrin Degradation Products (01/07/19 20:26) Triamcinolone Acetonide Im (Kenalog-40) (01/07/19 20:30) Troponin I (01/07/19 21:08) Cbc No Diff (01/07/19 21:20) Medications Given in ED Current Medications Medications Dose Ordered Sig/Jessica Route Start Time Stop Time Status Last Admin Dose Admin Triamcinolone Acetonide 40 mg ONCE ONCE IM 01/07/19 20:30 01/07/19 20:31 DC 01/07/19 20:43 40 MG Vital Signs/I&O 01/07/19 20:21 Temp 97.5 Pulse 93 Resp 18 B/P (MAP) 133/91 (105) Pulse Ox 99 O2 Delivery Room Air Departure Communication (Admissions) NAME: MARY KAY ASKEW Angelica MED REC#: [id number] PT STATUS: REG ER : 1990 PHYSICIAN: [place] APRN ADMIT DATE: 01/07/19/ER Draft Date of Exam:01/07/19 CHEST 1 VIEW, AP/PA ONLY EXAMINATION: Single frontal view of the chest. INDICATION: Shortness of breath. COMPARISON: None available. FINDINGS: Incidental note is made of an azygos fissure on the right. There is a 9 mm nodular density, likely related to the azygos fissure. The lungs are otherwise clear and the pulmonary vasculature is normal. No pneumothorax or large pleural effusion. The cardiomediastinal silhouette is normal. No acute osseous abnormality is appreciated. IMPRESSION: 1. No radiographic evidence of acute chest disease. 2. Incidental note is made of an azygos fissure, a normal variant. There is a nodular density, which is likely related to the azygos fissure and of doubtful clinical significance. Dictated on workstation # [id number] Dict: 01/07/192113 Trans: 01/07/192120 [facility] [id number] Interpreted by: LIVIA RO DO Electronically signed by: Impression Primary Impression: Chest pain Qualified Codes: R07.9 - Chest pain, unspecified Disposition: 01 HOME, SELF-CARE Condition: Stable Departure-Patient Inst. Decision time for Depature: 20:30 Referrals: KIARA MAO MD (PCP/Family) Primary Care Physician Patient Instructions: Contact Dermatitis (DC), Chest Pain (DC) Add. Discharge Instructions: 1. Return to ER for any concerns 2. Follow-up with your doctor next week 3. Use topical hydrocortisone cream three times daily. LA[place] LANDA APRN Jan 07, 2019 20:32
--- NOTE | 2019-01-07 21:22 | Diagnostic Imaging Report ---
EXAMINATION: Single frontal view of the chest. INDICATION: Shortness of breath. COMPARISON: None available. FINDINGS: Incidental note is made of an azygos fissure on the right. There is a 9 mm nodular density, likely related to the azygos fissure. The lungs are otherwise clear and the pulmonary vasculature is normal. No pneumothorax or large pleural effusion. The cardiomediastinal silhouette is normal. No acute osseous abnormality is appreciated. IMPRESSION: 1. No radiographic evidence of acute chest disease. 2. Incidental note is made of an azygos fissure, a normal variant. There is a nodular density, which is likely related to the azygos fissure and of doubtful clinical significance. Dictated by: Dictated on workstation # [id number]
[2019-01-07 21:28] LABS: HEMOGLOBIN 13.2 G/DL (11.5-16.0); MEAN PLATELET VOLUME 10.1 FL (7.4-10.4); RED CELL DISTRIBUTION WIDTH 13.7 % (10.0-14.5); WHITE BLOOD COUNT 6.8 10^3/uL (4.3-11.0)
[2019-01-07 21:55] VITALS: BP 138/87
--- OUTSIDE RECORDS SUMMARY | 2019-01-07 22:16 | XMS REPORT | Continuity of Care Document ---
Author Organization Unknown Address Unknown Allergies Active Description Code Type Severity Reaction Onset Reported/Identified Relationship to Patient Clinical Status Yes erythromycin base [id number] Drug Allergy Unknown reports that he 01/14/2016 Yes adhesive tape [id number] Drug Allergy Unknown HIVES 03/08/2018 Yes No Known Drug Allergies [id number] Drug Allergy Unknown N/A 12/26/2018 Medications There is no data. Problems Date Dx Coded Attending Type Code Diagnosis Diagnosed By 04/09/2013 SADA POND APRN 461.9 SINUSITIS ACUTE 04/09/2013 SLADE BRIDGE OPERATOR, SARAH A 461.9 SINUSITIS ACUTE 04/09/2013 SLADE MONTESN, SARAH A 461.9 SINUSITIS ACUTE 04/09/2013 SLADE BRIDGE OPERATOR, SARAH A 461.9 SINUSITIS ACUTE 04/09/2013 SLADE BRIDGE OPERATOR, SARAH A 461.9 SINUSITIS ACUTE 04/09/2013 [...] ESTEFANIA K 461.9 SINUSITIS ACUTE 04/09/2013 SLADE BRIDGE OPERATOR, SARAH A 461.9 SINUSITIS ACUTE 04/09/2013 CRISTA ROSALES APRN 461.9 SINUSITIS ACUTE 04/09/2013 CRISTA ROSALES APRN 461.9 SINUSITIS ACUTE 07/12/2013 SLADE BRIDGE OPERATOR, SARAH A V72.41 TEST NEGATIVE RESULT 07/12/2013 SLADE BRIDGE OPERATOR, SARAH A V74.5 STD SCREEN 07/12/2013 SLADE BRIDGE OPERATOR, SARAH A V76.2 CERVICAL CANCER SCREENING (PAP SMEAR) 07/12/2013 SLADE BRIDGE OPERATOR, SARAH A V72.41 TEST NEGATIVE RESULT 07/12/2013 SLADE BRIDGE OPERATOR, SARAH A V74.5 STD SCREEN 07/12/2013 SLADE BRIDGE OPERATOR, SARAH A V76.2 CERVICAL CANCER SCREENING (PAP SMEAR) 07/12/2013 SLADE BRIDGE OPERATOR, SARAH A V72.41 TEST NEGATIVE RESULT 07/12/2013 SLADE BRIDGE OPERATOR, SARAH A V74.5 STD SCREEN 07/12/2013 SLADE MONTESN, SARAH A V76.2 CERVICAL CANCER SCREENING (PAP SMEAR) 07/12/2013 SLADE MONTESN, SARAH A V72.41 TEST NEGATIVE RESULT 07/12/2013 SLADE MONTESN, SARAH A V74.5 STD SCREEN 07/12/2013 SLADE GATUAM, SARAH A V76.2 CERVICAL CANCER SCREENING (PAP [...] CERVICAL CANCER SCREENING (PAP SMEAR) 07/12/2013 SLADE BRIDGE OPERATOR, SARAH A V72.41 TEST NEGATIVE RESULT 07/12/2013 SLADE BRIDGE OPERATOR, SARAH A V74.5 STD SCREEN 07/12/2013 SLADE BRIDGE OPERATOR, SARAH A V76.2 CERVICAL CANCER SCREENING (PAP SMEAR) 07/12/2013 MADL BRIDGE OPERATOR, CRISTA L V72.41 TEST NEGATIVE RESULT 07/12/2013 MADL BRIDGE OPERATOR, CRISTA L V74.5 STD SCREEN 07/12/2013 MADL BRIDGE OPERATOR, CRISTA L V76.2 CERVICAL CANCER SCREENING [...] K V22.1 , NORMAL OTHER 09/15/2013 SLADE BRIDGE OPERATOR, SARAH A V22.1 , NORMAL OTHER 09/15/2013 MADL BRIDGE OPERATOR, CRISTA L V22.1 , NORMAL OTHER 09/15/2013 MADL BRIDGE OPERATOR, CRISTA L V22.1 , NORMAL OTHER [...] ESTEFANIA K V77.1 DIABETES SCREENING 11/15/2013 SLADE BRIDGE OPERATOR, SARAH A V77.1 DIABETES SCREENING 11/15/2013 MADL BRIDGE OPERATOR, CRISTA L V77.1 DIABETES SCREENING 11/15/2013 MADL BRIDGE OPERATOR, CRISTA L V77.1 DIABETES SCREENING 01/09/2014 [...] APRNIDI A V78.0 ANEMIA SCREENING 01/09/2014 MADL BRIDGE OPERATOR, CRISTA L V78.0 ANEMIA SCREENING 01/09/2014 MADL BRIDGE OPERATOR, CRISTA L V78.0 ANEMIA SCREENING 02/22/2014 TORRES DO, ESTEFANIA K 649.60 UTERINE SIZE DATE DISCREPANCY - LGA 02/22/2014 TORRES DO, ESTEFANIA K 649.60 UTERINE SIZE DATE DISCREPANCY - LGA 02/22/2014 TORRES DO, ESTEFANIA K 649.60 UTERINE SIZE DATE DISCREPANCY - LGA 02/22/2014 SHANEL JUNE APRNIDI A 649.60 UTERINE SIZE DATE DISCREPANCY - LGA 02/22/2014 MADL BRIDGE OPERATOR, CRISTA L 649.60 UTERINE SIZE DATE DISCREPANCY - LGA 02/22/2014 MADL BRIDGE OPERATOR, CRISTA L 649.60 UTERINE SIZE DATE DISCREPANCY - LGA 03/01/2014 TORRES DO, ESTEFANIA K V28.6 GBS SCREENING 03/01/2014 TORRES DO, ESTEFANIA K V28.6 GBS SCREENING 03/01/2014 TORRES DO, ESTEFANIA K V28.6 GBS SCREENING 03/01/2014 SHANEL JUNE APRNIDI A V28.6 GBS SCREENING 03/01/2014 MADL BRIDGE OPERATOR, CRISTA L V28.6 GBS SCREENING 03/01/2014 MADL BRIDGE OPERATOR, CRISTA L V28.6 GBS SCREENING 03/13/2014 TORRES DO, ESTEFANIA K 796.2 ELEVATED BLOOD PRESSURE READING WITHOUT DIAGNOSIS OF HYPERTENSION 03/13/2014 TORRES DO, ESTEFANIA K 796.2 ELEVATED BLOOD PRESSURE READING WITHOUT DIAGNOSIS OF HYPERTENSION 03/13/2014 SHANEL JUNE APRNIDI A 796.2 ELEVATED BLOOD PRESSURE READING WITHOUT DIAGNOSIS OF HYPERTENSION 03/13/2014 MADL BRIDGE OPERATOR, CRISTA L 796.2 ELEVATED BLOOD PRESSURE READING WITHOUT DIAGNOSIS OF HYPERTENSION 03/13/2014 MADL BRIDGE OPERATOR, CRISTA L 796.2 ELEVATED BLOOD PRESSURE READING WITHOUT DIAGNOSIS OF HYPERTENSION 03/21/2014 ESTEFANIA TORRES DO K Ot 642.31 03/21/2014 ESTEFANIA TORRES DO Ot 656.61 03/21/2014 ESTEFANIA TORRES DO Ot V06.1 03/21/2014 ESTEFANIA TORRES DO K Ot V27.0 04/26/2014 SLADE BRIDGE OPERATOR, SARAH A 455.6 UNSPECIFIED HEMORRHOIDS WITHOUT COMPLICATION 04/26/2014 SLADE BRIDGE OPERATOR, SARAH A V04.81 FLU SHOT 04/26/2014 SLADE BRIDGE OPERATOR, SARAH A V24.2 F/U, ROUTINE 04/26/2014 MADL BRIDGE OPERATOR, CRISTA L 455.6 UNSPECIFIED HEMORRHOIDS WITHOUT COMPLICATION 04/26/2014 MADL BRIDGE OPERATOR, CRISTA L V04.81 FLU SHOT 04/26/2014 MADL BRIDGE OPERATOR, CRISTA L V24.2 F/U, ROUTINE 04/26/2014 MADL BRIDGE OPERATOR, CRISTA L 455.6 UNSPECIFIED HEMORRHOIDS WITHOUT COMPLICATION 04/26/2014 MADL BRIDGE OPERATOR, CRISTA L V04.81 FLU SHOT 04/26/2014 MADL BRIDGE OPERATOR, CRISTA L V24.2 F/U, ROUTINE 05/17/2014 MADL BRIDGE OPERATOR, CRISTA L 724.2 BACK PAIN, LOWER 05/17/2014 MADL BRIDGE OPERATOR, CRISTA L 724.2 BACK PAIN, LOWER 07/04/2014 MADL BRIDGE OPERATOR, CRISTA L 727.49 OTHER GANGLION AND CYST OF SYNOVIUM TENDON AND BURSA 07/04/2014 MADL BRIDGE OPERATOR, CRISTA L 789.00 ABDOMINAL PAIN UNSPECIFIED SITE 07/10/2014 MADL BRIDGE OPERATOR, CRISTA L 789.1 HEPATOMEGALY 07/21/2014 BRIDGETT TORRES DOA K Ot 649.63 07/21/2014 MELISSA SLOAN ESTEFANIA K Ot 656.63 07/21/2014 MADL, CRISTA L POLICE JUSTICE Ot 789.1 08/01/2014 MADL, CRISTA L POLICE JUSTICE Ot 789.1 02/05/2015 MCKEONNALINI HOWARD DO Ot 727.43 02/05/2015 NALINI MCKEON DO Ot V72.84 02/08/2015 MELISSA SLOANESTEFANIA Ot 649.63 02/08/2015 MELISSA SLOANESTEFANIA Ot 656.63 02/08/2015 CRISTA ROSALES POLICE JUSTICE Ot 789.1 02/08/2015 [place] NALINI SLOAN D Ot 727.43 02/08/2015 [place] NATHALIE SLOANTT D Ot V72.84 02/08/2015 [place] NATHALIE SLOANTT D Ot 727.43 03/12/2015 AUDREY DE LOS SANTOS Ot 626.2 03/12/2015 AUDREY DE LOS SANTOS Ot 789.00 03/12/2015 AUDREY DE LOS SANTOS Ot E000.8 03/12/2015 AUDREY DE LOS SANTOS Ot E968.8 04/06/2015 TORRES ESTEFANIA SLOAN Ot 649.63 04/06/2015 TORRES ESTEFANIA SLOAN Ot 656.63 04/06/2015 CRISTA ROSALES POLICE JUSTICE Ot 789.1 04/06/2015 [place] NALINI SLOAN D Ot 727.43 04/06/2015 [place] NALINI D Ot V72.84 04/19/2015 CRISTA ROSALES POLICE JUSTICE Ot R10.2 08/09/2015 [place] APRN Ot [...] MCKEON DO Ot V72.84 09/05/2015 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 Ot S61.011A 09/05/2015 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 Ot W26.0XXA 09/05/2015 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 Ot Y92.511 09/05/2015 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 Ot Y99.0 09/05/2015 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 Ot Z23 09/19/2015 YAZMIN CORTES, KYLE [...] FINDINGS IN URINE 02/18/2016 CONNIE CRISTA Ventura POLICE JUSTICE Ot R10.2 PELVIC AND PERINEAL PAIN 02/18/2016 DANICA HWANG DO Ot N91.2 AMENORRHEA, UNSPECIFIED 02/20/2016 ALISE CORTES, CARISSA Coleman Ot R07.9 CHEST PAIN, UNSPECIFIED 03/06/2016 ALISE CORTES, CARISSA Coleman Ot R07.9 CHEST PAIN, UNSPECIFIED 05/18/2016 ALISE CORTES, CARISSA Coleman Ot R07.9 CHEST PAIN, UNSPECIFIED 06/01/2016 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 Ot H92.02 OTALGIA, LEFT EAR 06/03/2016 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 Ot H92.02 OTALGIA, LEFT EAR 06/03/2016 CRISTA ROSALES POLICE JUSTICE Ot R10.2 PELVIC AND PERINEAL PAIN 06/03/2016 [...] WEEKS GESTATION OF 07/17/2016 CONNIE CRISTA Ventura POLICE JUSTICE Ot R10.2 PELVIC AND PERINEAL PAIN 07/17/2016 [...] GESTATION OF NOT SPEC 10/05/2017 MADCRISTA Ventura POLICE JUSTICE Ot R10.2 PELVIC AND PERINEAL PAIN 10/05/2017 [...] OF NOT SPEC 10/06/2017 MADL, CRISTA Ventura POLICE JUSTICE Ot N83.202 UNSPECIFIED OVARIAN CYST, LEFT SIDE 10/22/2017 MADL, CRISTA L POLICE JUSTICE Ot N83.202 UNSPECIFIED OVARIAN CYST, LEFT SIDE [...] Ot K21.9 GASTRO-ESOPHAGEAL REFLUX DISEASE WITHOUT 03/11/2018 [facility] Ot K29.70 GASTRITIS, UNSPECIFIED, WITHOUT BLEEDING 03/11/2018 [facility] Ot Z68.41 BODY MASS INDEX (BMI) 40.0-44.9, ADULT 03/12/2018 CRISTA ROSALES POLICE JUSTICE Ot R10.2 PELVIC AND PERINEAL PAIN 03/12/2018 [...] GESTATION OF NOT SPEC 03/12/2018 CRISTA ROSALES POLICE JUSTICE Ot N83.202 UNSPECIFIED OVARIAN CYST, LEFT SIDE [...] Ot Z91.048 OTHER NONMEDICINAL SUBSTANCE ALLERGY STA 12/26/2018 ALISE CORTES, CARISSA Coleman Ot R07.9 CHEST PAIN, UNSPECIFIED 12/31/2018 DHEERAJ DO, ISIDRO K Ot E78.00 PURE HYPERCHOLESTEROLEMIA, UNSPECIFIED 12/31/2018 DHEERAJ DO, ISIDRO K Ot G43.909 MIGRAINE, UNSP, NOT INTRACTABLE, WITHOUT 12/31/2018 DHEERAJ DO, ISIDRO K Ot K04.7 PERIAPICAL ABSCESS WITHOUT SINUS 12/31/2018 DHEERAJ DO, ISIDRO K Ot K08.89 OTHER SPECIFIED DISORDERS OF TEETH AND S 12/31/2018 DHEERAJ DO, ISIDRO K Ot K21.9 GASTRO-ESOPHAGEAL REFLUX DISEASE WITHOUT 12/31/2018 DHEERAJ DO, ISIDRO K Ot Z87.891 PERSONAL HISTORY OF NICOTINE DEPENDENCE 12/31/2018 DHEERAJ DO, ISIDRO K Ot Z88.8 ALLERGY STATUS TO OTH DRUG/MEDS/BIOL SUB 12/31/2018 DHEERAJ DO, ISIDRO K Ot Z90.49 ACQUIRED ABSENCE OF OTHER SPECIFIED PART 12/31/2018 DHEERAJ DO, ISIDRO K Ot E78.00 PURE HYPERCHOLESTEROLEMIA, UNSPECIFIED 12/31/2018 DHEERAJ DO, ISIDRO K Ot G43.909 MIGRAINE, UNSP, NOT INTRACTABLE, WITHOUT 12/31/2018 DHEERAJ DO, ISIDRO K Ot K04.7 PERIAPICAL ABSCESS WITHOUT SINUS 12/31/2018 DHEERAJ DO, ISIDRO K Ot K08.89 OTHER SPECIFIED DISORDERS OF TEETH AND S 12/31/2018 DHEERAJ DO, ISIDRO K Ot K21.9 GASTRO-ESOPHAGEAL REFLUX DISEASE WITHOUT 12/31/2018 DHEERAJ DO, ISIDRO K Ot Z87.891 PERSONAL HISTORY OF NICOTINE DEPENDENCE 12/31/2018 DHEERAJ DO, ISIDRO K Ot Z88.8 ALLERGY STATUS TO OTH DRUG/MEDS/BIOL SUB 12/31/2018 DHEERAJ DO, ISIDRO K Ot Z90.49 ACQUIRED ABSENCE OF OTHER SPECIFIED PART 01/01/2019 AUDREY DE LOS SANTOS Ot E78.00 PURE HYPERCHOLESTEROLEMIA, UNSPECIFIED 01/01/2019 AUDREY DE LOS SANTOS Ot G43.909 MIGRAINE, UNSP, NOT INTRACTABLE, WITHOUT 01/01/2019 AUDREY DE LOS SANTOS Ot K04.7 PERIAPICAL ABSCESS WITHOUT SINUS 01/01/2019 AUDREY DE LOS SANTOS Ot K08.89 OTHER SPECIFIED DISORDERS OF TEETH AND S 01/01/2019 AUDREY DE LOS SANTOS Ot K21.9 GASTRO-ESOPHAGEAL REFLUX DISEASE WITHOUT 01/01/2019 AUDREY DE LOS SANTOS Ot Z87.891 PERSONAL HISTORY OF NICOTINE DEPENDENCE 01/01/2019 AUDREY DE LOS SANTOS Ot Z90.49 ACQUIRED ABSENCE OF OTHER SPECIFIED PART 01/02/2019 ISIDRO ESQUEDA DO Ot E78.00 PURE HYPERCHOLESTEROLEMIA, UNSPECIFIED 01/02/2019 ISIDRO ESQUEDA DO Ot G43.909 MIGRAINE, UNSP, NOT INTRACTABLE, WITHOUT 01/02/2019 GENE ESQUEDA DOA K Ot K04.7 PERIAPICAL ABSCESS WITHOUT SINUS 01/02/2019 ISIDRO ESQUEDA DO K Ot K08.89 OTHER SPECIFIED DISORDERS OF TEETH AND S 01/02/2019 GENE ESQUEDA DOA Meka Ot K21.9 GASTRO-ESOPHAGEAL REFLUX DISEASE WITHOUT 01/02/2019 ISIDRO ESQUEDA DO K Ot Z87.891 PERSONAL HISTORY OF NICOTINE DEPENDENCE 01/02/2019 GENE ESQUEDA DOA K Ot Z88.8 ALLERGY STATUS TO OTH DRUG/MEDS/BIOL SUB 01/02/2019 ISIDRO ESQUEDA DO Ot Z90.49 ACQUIRED ABSENCE OF OTHER SPECIFIED PART Procedures Code Description [place] [address] [facility]PH[facility] 07/12/2013 57655 PAP SMEAR 07/12/2013 Q0091 PAP SMEAR OBTAIN SMEAR 07/12/2013 75690 TEST, URINE (IN-HOUSE) 07/12/2013 70977 TRICHOMONAS (IN-HOUSE) 07/12/2013 13841 CULTURE UROGENITAL 07/14/2013 74994 TEST, URINE (IN-HOUSE) 09/12/2013 56269 ROUTINE VENIPUNCTURE 09/15/2013 42160 UA OB DIP 09/15/2013 55752 URINE DRUG SCREEN (IN-HOUSE) 09/15/2013 66652 TSH 09/15/2013 27167 [facility] 09/15/2013 97044 HIV ([facility]) 09/15/2013 24003 RUBELLA ANTIBODY, IGG 09/15/2013 07005 ANTIBODY SCREEN (order) 09/15/2013 54613 BLOOD TYPE/Rh FACTOR 09/15/2013 33408 HEP B SURFACE ANTIGEN ([facility]) 09/15/2013 14276 CBC 09/15/2013 32810 UA LONG DIP 10/12/2013 62600 TRICHOMONAS (IN-HOUSE) 10/12/2013 30203 GC/CHLAM PROBE ([facility]) 10/12/2013 02153 CULTURE UROGENITAL 10/15/2013 54999 ROUTINE VENIPUNCTURE 11/15/2013 99758 US OB - COMPLETE >14 WEEKS 11/15/2013 30118 UA OB DIP 11/15/2013 41937 GLUCOSE REYNA 1 HOUR 11/15/2013 80198 UA OB DIP 12/13/2013 83261 ROUTINE VENIPUNCTURE 01/09/2014 17136 GLUCOSE REYNA 3 HOUR 01/09/2014 24246 UA OB DIP 01/09/2014 38849 GLUCOSE REYNA 1 HOUR 01/10/2014 83436 CBC 01/10/2014 02112 UA OB DIP 01/23/2014 38709 UA OB DIP 02/06/2014 07042 ROUTINE VENIPUNCTURE 02/22/2014 74169 UA OB DIP 02/22/2014 17364 GLUCOSE FINGER STICK 02/22/2014 63238 VARICELLA ANTIBODY 02/23/2014 29833 UA OB DIP 03/01/2014 68509 US OB - FOLLOW UP 03/02/2014 07136 CULTURE GROUP B STREP VAG 03/03/2014 00795 ROUTINE VENIPUNCTURE 03/13/2014 2000F BLOOD PRESSURE CHECK 03/13/2014 30812 UA OB DIP 03/13/2014 99405 GLUCOSE FINGER STICK 03/13/2014 3511636 GFR CALC (RESULT ONLY) 03/14/2014 45395 CMP 03/14/2014 01852 LDH 03/14/2014 97781 URIC ACID 03/14/2014 69761 CBC 03/14/2014 52792 URINE PROTEIN 24 HOUR 03/16/2014 2000F BLOOD PRESSURE CHECK 03/17/2014 70359 ROUTINE VENIPUNCTURE 05/17/2014 96800 XRAY LUMBAR SPINE 2 OR 3 VIEWS 05/17/2014 63568 CMP 05/17/2014 66177 CBC 05/17/2014 13799 XRAY ABDOMEN 2 VIEWS 07/04/2014 02778 US ABDOMINAL ULTRASOUND, COMPLETE 07/04/2014 00409GJ DRAINAGE OF AMNIOTIC FL, THERAP FROM POC 02/10/2017 [id number] DELIVERY OF PRODUCTS OF CONCEPTION, EXTE 02/10/2017 [...] culture - 01/25/17 21:30 Bacterial urine culture [id number] NRG COLONY COUNT >100,000/ML NRG FTX;REPORTABLE PLUS, [...] culture - 02/07/17 00:50 Bacterial urine culture [id number] NRG COLONY COUNT >100,000/ML NRG FTX;REPORTABLE PLUS, [...] ABO+Rh group AP NRG Transfusion band number [id number] NRG Blood group antibody screen NEGATIVE NRG [...] - 09/08/18 11:40 TSH 1.59 mIU/L NRG Fibrin D-dimer FEU measurement in platelet poor plasma (mass/volume) - 01/07/19 20:40 Fibrin D-dimer FEU measurement in platelet poor plasma (mass/volume) 0.47 ug/mL 0.00-0.49 Automated blood complete blood count (hemogram) panel - 01/07/19 20:40 Blood leukocytes automated count (number/volume) 6.8 10*3/uL 4.3-11.0 Blood erythrocytes automated count (number/volume) 4.43 10*6/uL 4.35-5.85 Venous blood hemoglobin measurement (mass/volume) 13.2 g/dL 11.5-16.0 Blood hematocrit (volume fraction) 39 % 35-52 Automated erythrocyte mean corpuscular volume 89 [foz_us] 80-99 Automated erythrocyte mean corpuscular hemoglobin (mass per erythrocyte) 30 pg 25-34 Automated erythrocyte mean corpuscular hemoglobin concentration measurement (mass/volume) 34 g/dL 32-36 Automated erythrocyte distribution width ratio 13.7 % 10.0- 14.5 Automated blood platelet count (count/volume) 252 10*3/uL 130-400 Automated blood platelet mean volume measurement 10.1 [foz_us] 7.4-10.4 Serum or plasma troponin i.cardiac measurement (mass/volume) - 01/07/19 20:40 Serum or plasma troponin i.cardiac measurement (mass/volume) < ng/mL <0.028 Urine beta human chorionic gonadotropin (hCG) measurement - 01/07/19 20:45 Urine beta human chorionic gonadotropin (hCG) measurement NEGATIVE NEGATIVE Encounters ACCT No. Visit Date/Time Discharge Status Pt. Type Provider Facility Loc./Unit Complaint [id number] 12/31/2018 12:15:00 12/31/2018 23:59:59 CLS Outpatient CRISTA ROSALES APRN [facility] [id number] 09/08/2018 10:40:00 Document Registration [id number] 07/04/2014 13:31:00 07/04/2014 23:59:59 CLS Outpatient CRISTA ROSALES APRN [id number] 05/17/2014 13:50:00 05/17/2014 23:59:59 CLS Outpatient CRISTA ROSALES APRN [id number] 04/26/2014 14:47:00 04/26/2014 23:59:59 CLS Outpatient SLADESARAH Raymond APRN [id number] 03/17/2014 09:57:00 03/17/2014 23:59:59 CLS Outpatient TORRES DOESTEFANIA [id number] 03/13/2014 15:53:00 03/13/2014 23:59:59 CLS Outpatient TORRES DOESTEFANIA [id number] 02/22/2014 10:12:00 02/22/2014 23:59:59 CLS Outpatient TORRES DOESTEFANIA [id number] 02/06/2014 13:49:00 02/06/2014 23:59:59 CLS Outpatient TORRES DO, ESTEFANIA Ackerman [id number] 01/23/2014 15:13:00 01/23/2014 23:59:59 CLS Outpatient TORRES DOESTEFANIA [id number] 01/09/2014 16:34:00 01/09/2014 23:59:59 CLS Outpatient TORRES DOESTEFANIA [id number] 12/13/2013 14:10:00 12/13/2013 23:59:59 CLS Outpatient TORRES DOESTEFANIA [id number] 12/13/2013 14:10:00 12/13/2013 23:59:59 CLS Outpatient TORRES DOESTEFANIA [id number] 11/15/2013 13:57:00 11/15/2013 23:59:59 CLS Outpatient TORRES DOESTEFANIA [id number] 11/15/2013 13:57:00 11/15/2013 23:59:59 CLS Outpatient TORRES DO, ESTEFANIA Ackerman [id number] 10/12/2013 14:55:00 10/12/2013 23:59:59 CLS Outpatient SLADESARAH Raymond APRN [id number] 10/12/2013 14:55:00 10/12/2013 23:59:59 CLS Outpatient SARAH JUNE APRN [id number] 09/15/2013 14:50:00 09/15/2013 23:59:59 CLS Outpatient SARAH JUNE APRN [id number] 07/12/2013 08:51:00 07/12/2013 23:59:59 CLS Outpatient SARAH JUNE APRN [id number] 04/09/2013 13:20:00 04/09/2013 23:59:59 CLS Outpatient DEJAH BRIDGE OPERATORNATHALIESADA S [id number] 12/26/2018 19:06:00 12/26/2018 19:56:00 DIS Outpatient AUDREY DE LOS SANTOS Via [facility] ER TOOTHACHE [id number] 12/26/2018 07:53:00 12/26/2018 08:43:00 DIS Outpatient ISIDRO ESQUEDA DO Via [facility] ER DENTAL PAIN [id number] 05/09/2018 06:56:00 05/09/2018 07:50:00 DIS Outpatient SHANNON JASSO MD Via [facility] ER UTI [id number] 04/01/2018 09:41:00 04/01/2018 17:20:00 DIS Outpatient NALINI MCKEON DO Via [facility] SDC BILIARY DYSKINESIA [id number] 03/31/2018 06:09:00 03/31/2018 10:49:00 DIS Outpatient NALINI MCKEON DO Via [facility] PREOP BILIARY DYSKINESIA [id number] 03/18/2018 09:46:00 03/18/2018 23:59:59 CLS Outpatient NALINI MCKEON DO Via [facility] CARD CHEST PAIN,GERD [id number] 03/12/2018 07:07:00 03/12/2018 23:59:59 CLS Outpatient NALINI MCKEON DO Via [facility] RAD CHEST PAIN,GERD [id number] 03/09/2018 08:56:00 03/09/2018 11:30:00 DIS Outpatient NALINI MCKEON DO Via [facility] ENDO GERD [id number] 03/08/2018 09:15:00 03/08/2018 09:19:00 DIS Outpatient NALINI MCKEON DO Via [facility] PREOP EGD [id number] 02/24/2018 10:24:00 02/24/2018 23:59:59 CLS Outpatient BRENDA LALA [facility] CARD R42 DIZZINESS [id number] 10/05/2017 13:02:00 10/05/2017 23:59:59 CLS Outpatient CRISTA ROSALES POLICE JUSTICE Via [facility] RAD R10.2 PELVIC PAIN [id number] 02/10/2017 06:57:00 02/12/2017 11:30:00 DIS Inpatient KIARA MAO MD Via [facility] LDRP INDUCTION [id number] 02/09/2017 13:41:00 02/09/2017 23:59:59 CLS Outpatient KIARA MAO MD Via [facility] RAD POSITION [id number] 02/07/2017 00:45:00 02/07/2017 02:33:00 DIS Outpatient PEPE MEEK MD Via [facility] WSo CONTRACTIONS [id number] 01/25/2017 21:03:00 01/25/2017 22:24:00 DIS Outpatient ANOOP HWANG MD Via [facility] WSo CONTRACTIONS [id number] 12/29/2016 09:49:00 12/29/2016 23:59:59 CLS Outpatient KIARA MAO MD Via [facility] RAD FUNDAL HEIGHT INCREASE [id number] 12/07/2016 16:52:00 12/07/2016 18:10:00 DIS Outpatient ANOOP HWANG MD Via [facility] WSo ABD PAIN/PRESSURE [id number] 10/09/2016 13:28:00 10/09/2016 23:59:59 CLS Outpatient KIARA MAO MD Via [facility] RAD EVAL SPINE F/U [id number] 09/18/2016 13:31:00 09/18/2016 23:59:59 CLS Outpatient KIARA MAO MD Via [facility] RAD SURVEY [id number] 07/17/2016 10:22:00 07/17/2016 23:59:59 CLS Outpatient KIARA MAO MD Via [facility] RAD NORMAL IN MULTIGRAVIDA [id number] 07/13/2016 23:34:00 07/14/2016 00:22:00 DIS Emergency ISIDRO ESQUEDA DO Via [facility] ER FAICAL PAIN EAR ACHE [id number] 06/01/2016 19:44:00 06/01/2016 20:02:00 DIS Emergency LA[place] LAN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 Via [facility] ER EAR ACHE [id number] 05/19/2016 10:30:00 05/19/2016 23:59:59 CLS Preadmit CARISSA CARRERO MD Via [facility] CARD CHEST PAIN [id number] 02/18/2016 10:30:00 05/18/2016 00:01:00 DIS Outpatient CARISSA CARRERO MD Via [facility] CARD CHEST PAIN [id number] 02/11/2016 22:18:00 02/11/2016 23:41:00 DIS Emergency SHANNON JASSO MD Via [facility] ER DECREASE IN URINATION [id number] 01/14/2016 13:37:00 01/14/2016 14:23:00 DIS Emergency AUDREY DE LOS SANTOS Via [facility] ER COUGH/CONGESTION [id number] 11/28/2015 15:02:00 11/28/2015 23:59:59 CLS Outpatient HWANGDANICA Porter DO Via [facility] RAD AMENORRHEA [id number] 10/16/2015 06:11:00 10/16/2015 08:40:00 DIS Emergency SHANNNO JASSO MD Via [facility] ER NUMB ON HEAD,SHAKES ALL OVER,KNEE PAIN [id number] 09/19/2015 06:53:00 09/19/2015 09:35:00 DIS Emergency KYLE ARCE MD Via [facility] ER LOWER ABD PAIN [id number] 09/04/2015 20:40:00 09/04/2015 21:08:00 DIS Emergency LA[employer]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 Via [facility] ER R HAND THUMB LAC [id number] 08/09/2015 11:58:00 08/09/2015 14:32:00 DIS Emergency 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 Via [facility] ER SORE THROAT [id number] 04/06/2015 11:54:00 04/06/2015 23:59:59 CLS Outpatient MADLCRISTA L [employer] Via [facility] RAD PELVIC PAIN [id number] 03/12/2015 18:20:00 03/12/2015 23:23:00 DIS Emergency AUDREY DE LOS SANTOS Via [facility] ER [id number] 02/08/2015 08:08:00 02/08/2015 14:30:00 DIS Outpatient NALINI MCKEON DO D Via [facility] [id number] 02/01/2015 14:28:00 02/01/2015 23:59:59 CLS Outpatient NALINI MCKEON DO D Via [facility] PREOP [id number] 07/19/2014 08:41:00 07/19/2014 23:59:59 CLS Outpatient MADLCRISTA L [employer] Via [facility] RAD [id number] 03/19/2014 00:35:00 03/21/2014 17:10:00 DIS Inpatient ESTEFANIA TORRES DO Via [facility] [id number] 03/01/2014 11:59:00 03/01/2014 23:59:59 CLS Outpatient ESTEFANIA TORRES DO Via [facility] RAD [id number] 01/07/2019 20:56:00 Document Registration [id number] 01/30/2018 17:20:00 Document Registration
== END 2019-01-07 21:57 | disposition home or self-care (01) ==
LOC: EDUNIT# 20:18 → ER 20:19
DX: R07.9 Chest pain, unspecified (principal); E78.00 Pure hypercholesterolemia, unspecified; G43.909 Migraine, unspecified, not intractable, without status migrainosus; K21.9 Gastro-esophageal reflux disease without esophagitis; Z87.891 Personal history of nicotine dependence; Z90.49 Acquired absence of other specified parts of digestive tract
CPT/HCPCS: 36415; 71045; 84484; 84703; 85027; 85379; 93005; 96372

== ENCOUNTER 2019-08-02 21:46 | Emergency (ER) | payer MEDICAID ==
[~2019-08-02] VITALS: Ht 167.7 cm; Wt 126.1 kg
[~2019-08-02 21:46] MED LIST changes: -TRAM50TA2 PO; +TRM50T PO
--- NOTE | 2019-08-02 22:07 | ED EENT ---
History of Present Illness General Chief Complaint: Oral/Throat Problems Stated Complaint: SORE THROAT,ACHE Source: patient Exam Limitations: no limitations History of Present Illness Date Seen by Provider: Aug 02, 2019 Time Seen by Provider: 22:05 Initial Comments To ER with sore throat and body aches bilateral knee pain cough chills for 2 days. Timing/Duration: gradual, this evening Location: throat Associated Symptoms: cough, sore throat Allergies and Home Medications Allergies Coded Allergies: No Known Drug Allergies (Unverified , 12/26/18) Patient Home Medication List Home Medication List Reviewed: Yes Review of Systems Review of Systems Constitutional: see HPI, chills Eyes: No Symptoms Reported Ears: See HPI Nose: see HPI Mouth: see HPI Throat: see HPI Respiratory: see HPI Cardiovascular: see HPI Musculoskeletal: see HPI Skin: see HPI Neurological: See HPI Hematologic/Lymphatic: See HPI Past Svnqnru-Gcjtkx-Zrbcti Hx Patient Social History Type Used: Cigarettes Former Smoker, Quit: Mar 22, 2016 2nd Hand Smoke Exposure: No Recent Foreign Travel: No Contact w/Someone Who Travel: No Recent Hopitalizations: No Immunizations Up To Date Tetanus Booster (TDap): Unknown PED Vaccines UTD: Yes Seasonal Allergies Seasonal Allergies: No Past Medical History Surgeries: Yes (ganglion cyst on wrist ) Appendectomy, Gallbladder, Orthopedic Respiratory: No Cardiac: Yes High Cholesterol Neurological: Yes Headaches /Migraines Reproductive Disorders: No Female Reproductive Disorders: Menstrual Problems Genitourinary: No Gastrointestinal: Yes (lactose intolerance) Gastroesophageal Reflux, Gall Bladder Disease Musculoskeletal: No Endocrine: No HEENT: Yes (DENTAL CARIES) Cancer: No Psychosocial: No Integumentary: Yes Recent Skin Changes Blood Disorders: No Adverse Reaction/Blood Tranf: No Family Medical History Patient reports no known family medical history. No Pertinent Family Hx Physical Exam Height, Weight, BMI Height: 5'4.00" Weight: 255lbs. 0oz. 115.632672oz; 41.6 BMI Method:Stated General Appearance: WD/WN, no apparent distress, obese Eyes: bilateral eye normal inspection, bilateral eye PERRL, bilateral eye EOMI Ears: bilateral ear auricle normal, bilateral ear canal normal, bilateral ear TM normal Mouth/Throat: normal mouth inspection, pharynx normal Neck: non-tender, full range of motion Respiratory: normal breath sounds, no respiratory distress, no accessory muscle use Gastrointestinal: normal bowel sounds, non tender Neurologic/Psychiatric: alert, normal mood/affect, oriented x 3 Skin: normal color, warm/dry Progress/Results/Core Measures Results/Orders My Orders Orders - LA[facility] APRN Influenza A And B Antigens (08/02/19 22:04) Rapid Strep A Screen (08/02/19 22:04) Departure Impression Primary Impression: Influenza Disposition: 01 HOME, SELF-CARE Condition: Stable Departure-Patient Inst. Decision time for Depature: 22:06 Referrals: KIARA MAO MD (PCP/Family) Primary Care Physician Patient Instructions: Flu, Adult (DC) Add. Discharge Instructions: 1. Tylenol and ibuprofen for body aches and fevers. Return to ER for any concerns. Drink plenty of fluids. Follow-up with your doctor this week for recheck. All discharge instructions reviewed with patient and/or family. Voiced understanding. Work/School Note: Work Release Form Date Seen in the Emergency Department: Aug 02, 2019 Return to Work: Aug 05, 2019 LA[facility] LANDA APRN Aug 02, 2019 22:07
[2019-08-02 22:35] VITALS: BP 145/98
--- OUTSIDE RECORDS SUMMARY | 2019-08-12 20:12 | XMS REPORT ---
Author Author Bridgett TORRES [facility] Address [address] [place] [address] Care Team Providers Care Shuttle Preparation Supervisor Name Role Phone ESTEFANIA TORRES Unavailable PROBLEMS Type Condition ICD9-CM Code [id number] Code Onset Dates Condition S tatus SNOMED Code Problem Migraine headache G43.909 Active 37 [id number] Problem Mixed hyperlipidemia E78.2 Active [id number] ALLERGIES No Information ENCOUNTERS Encounter Location Date Diagnosis [place] [address] [address] Apr, [address] [address] Feb, Mixed hyperlipidemia E78.2 ; Palpitation s R00.2 and Abnormal thyroid blood test R94.6 [facility] [address] [address] Dec, [place] [address] [address] Dec, [facility] [address] [address] Nov, Exercise counseling Z71.82 [facility] [address] [facility] [id number] [place] [address] Nov, Impetigo L01.00 and Morbid o besity E66.01 [facility] [address] [address] Nov, Exercise counseling Z71.82 [facility] [address] [address] October, Exercise counseling Z71.82 [place] [address] [address] October, Exercise counseling Z71.82 [place] [address] [address] Sep, Mixed hyperlipidemia E78.2 ; Weight loss counseling, encounter for Z71.3 ; 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 and Morbid obesity E66.01 [place] [address] [address] Sep, Exercise counseling Z71.82 [place] [address] [address] Sep, Exercise counseling Z71.82 [place] [address] [address] Sep, Exercise counseling Z71.82 [place] [address] [address] Sep, Exercise counseling Z71.82 [place] [address] [address] Aug, Screening for diabetes mellitus Z13.1 [place] [address] [address] Aug, Screening for diabetes mellitus Z13.1 [place] [address] [address] Aug, Exercise counseling Z71.82 [place] [address] [address] Aug, Encounter for initial prescription of co ntraceptive pills Z30.011 ; Contraception management Z30.9 ; Contraceptive education Z30.09 ; Mixed hyperlipidemia E78.2 ; Weight loss counseling, encounter for Z71.3 ; Screening for diabetes mellitus Z13.1 ; Screening for thyroid disorder Z13.29 ; History of anemia Z86.2 and Morbid obesity E66.01 [facility] WALK IN [facility] [address] [facility] [id number] [address] [address] October, Seasonal allergic rhinitis, unspecified trigger J30.2 and BMI 40.0-44.9, adult Z68.41 [place] [address] [place] [id number] [place] [address] 04 Sep, 2017 Pelvic pain R10.2 ; Chronic GERD K21.9 a nd BMI 40.0-44.9, adult Z68.41 [place] [address] [place] [id number] [place] [address] 20 Jul, 2017 [facility] WALK IN [place] [id number] [address] [place] [address] 07 Apr, 2017 Sore throat J02.9 ; Acute re current streptococcal tonsillitis J03.01 and BMI 40.0-44.9, adult Z68.41 [facility] IN [place] [id number] [address] [place] [address] 09 Mar, 2017 Sore throat J02.9 and Acute non-recurrent streptococcal tonsillitis J03.00 [place] [address] [address] 05 Feb, [address] [place] [address] [id number] [place] [id number] Jan, Anxiety and depression F41.[address] [place] [address] [id number] [id number] Dec, [place] [address] [address] Nov, [address] [address] Jun, Normal in multigravida Z34.80 and First trimester Z33.[address] [address] Jun, 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 and Sampler Tester 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 ear H92.[address] [address] May, [facility] [place] [address] [id number] [address] [place] [address] May, Late menses N91.0 and Acute suppurative otitis media of left ear without spontaneous rupture of tympanic membrane, recurrence not specified H66.002 [place] [address] [address] May, [facility] [address] [address] Apr, [facility] [address] [facility] [id number] [address] [address] Apr, Vaginal discharge N89.8 and Vaginal yeast infection B37.3 [place] [address] [address] Mar, [place] [address] [address] Feb, [place] [address] [address] Feb, [place] [address] [address] 15 Feb, 2016 Abnormal cholesterol test E78.9 [place] [address] [address] 14 Feb, 2016 History of UTI Z87.440 ; Mixed hyperlipi demia E78.2 and Abnormal thyroid blood test R94.6 [facility] [address] [place] [address] Jan, [place] [address] [address] Jan, [place] [address] [address] Jan, Chest pain, unspecified type R07.9 ; Pal pitations R00.2 ; Hyperlipidemia, unspecified hyperlipidemia type E78.5 and Dyspnea, unspecified type R06.00 [place] [address] [address] Jan, [place] [address] [address] Dec, [facility] [address] [facility] [id number] [place] [address] Dec, Upper respiratory tract infe ction, unspecified type J06.9 [place] [address] [address] Dec, Major depressive disorder, single episod e, unspecified F32.9 and Panic attacks F41.0 [place] [address] [address] Nov, History of anemia Z86.2 ; Abnormal thyro id blood test R94.6 ; Mixed hyperlipidemia E78.2 ; Migraine headache G43.909 and Acute maxillary sinusitis, recurrence not specified J01.00 [place] [address] [address] Nov, 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 and Chondromalacia patellae of right knee M22.41 [place] [address] [address] Nov, Abnormal thyroid blood test R94.6 and Ab normal cholesterol test E78.9 [place] [address] [address] October, History of palpitations Z87.898 ; Pain i n left knee M25.562 and Pain in right knee M25.561 [place] [address] [address] Sep, Pelvic pain in female 625.9 [place] [address] [address] Sep, Pelvic pain R10.2 ; Galactorrhea in fema le N64.3 ; Knee pain, left M25.562 and Knee pain, right M25.561 [facility] [address] [facility] [id number] [place] [address] Aug, Cough R05 and Laceration of thumb, left S61.012A [place] [address] [address] 09 Aug, 2015 Cough R05 ; History of UTI Z87.440 and C ontraception management Z30.9 [place] [address] [place] [id number] 02 Aug, 2015 History of UTI Z87.440 and Irregular men ses N92.6 [place] [address] [address] 18 Jul, 2015 Leukopenia D72.819 and Neutropenia D70.9 [place] [address] [address] 18 Jul, 2015 Leukopenia D72.819 and Neutropenia D70.9 [place] [address] [address] 17 Jul, 2015 Migraine headache G43.909 ; Heart burn R 12 and History of long-term use of multiple prescription drugs Z92.29 [facility] [address] [facility] [id number] [address] [place] [address] 15 Jul, 2015 Vaginal discharge N89.8 ; Hi gh risk sexual behavior Z72.51 ; Unprotected sex Z72.51 ; Acute upper respiratory infection, unspecified J06.9 and Other viral agents as the cause of diseases classified elsewhere B97.[address] [address] 04 Jul, 2015 Sore throat J02.9 ; Sinusitis J32.9 and Fever R50.9 [place] [address] [address] Jun, Migraine headache G43.909 and Heart burn R12 [address] [address] Jun, [address] [address] Jun, [address] [address] Jun, Evaluation regarding contraception optio ns Z30.09 ; Encounter for Depo-Provera contraception Z30.42 ; 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 269A [facility] WALK IN [address] [place] [address] May, Sore throat J02.[address] [address] Feb, Pelvic pain in female 625.9 and Menorrha ciro 626.[address] [address] Dec, Diarrhea 787.[address] [address] Dec, Pelvic pain in female 625.9 and Ganglion cyst of wrist 727.[address] [address] Nov, Eczema 692.[address] [address] Nov, [address] [address] 14 Sep, [address] [address] Sep, [address] [address] Jul, [facility] [address] [id number] [place] [address] Jul, [facility] [address] [id number] [place] [address] Jun, [facility] [address] [id number] [place] [address] Jun, [facility] [address] [id number] [place] [address] Jun, [facility] [address] [id number] [place] [address] Jun, [facility] [address] [id number] [place] [address] Jun, [facility] [address] [id number] [place] [address] Jun, [facility] [address] [place] [id number] [place] [address] Jun, [facility] [address] [id number] [place] [address] Jun, [facility] [address] [id number] [place] [address] May, [facility] [address] [id number] [place] [address] May, [facility] [address] [id number] [place] [address] May, [facility] [address] [id number] [place] [address] May, [facility] [address] [id number] [place] [address] Apr, [facility] [address] [id number] [place] [address] Apr, [facility] [address] [id number] [place] [address] Apr, [facility] [address] [id number] [place] [address] Apr, [facility] [address] [id number] [place] [address] Apr, [facility] [address] [facility] [id number] [place] [address] Apr, [facility] [address] [id number] [place] [address] 29 Feb, 2013 [facility] [address] [id number] [place] [address] 29 Feb, 2013 [facility] [address] [facility] [id number] [place] [address] Feb, 2013 [facility] [address] [id number] [place] [address] Feb, 2013 [facility] [address] [id number] [place] [address] Feb, 2013 [facility] [address] [id number] [place] [address] Feb, 2013 [facility] [address] [id number] [place] [address] 25 Feb, 2013 [facility] [address] [id number] [place] [address] 25 Feb, 2013 [facility] [address] [id number] [place] [address] 23 Feb, 2013 [facility] [address] [id number] [place] [address] 23 Feb, 2013 [facility] [address] [facility] [id number] [place] [address] 22 Feb, 2013 [facility] [address] [id number] [place] [address] 22 Feb, 2013 [facility] [address] [id number] [place] [address] 19 Feb, 2013 [facility] [address] [id number] [place] [address] 19 Feb, 2013 [facility] [address] [id number] [place] [address] 12 Feb, 2013 [facility] [address] [id number] [facility] [place] [address] Feb, 2013 [facility] [address] [facility] [id number] [place] [address] Feb, [facility] [address] [id number] [place] [address] Feb, [facility] [address] [facility] [id number] [place] [address] Feb, [facility] [address] [id number] [facility] [place] [address] Feb, [facility] [address] [id number] [place] [address] Jan, [facility] [address] [id number] [place] [address] Jan, [facility] [address] [id number] [place] [address] Jan, [facility] [address] [id number] [place] [address] Jan, [facility] [address] [id number] [place] [address] Jan, [facility] [address] [id number] [place] [address] Jan, [facility] [address] [id number] [place] [address] Jan, [facility] [address] [id number] [place] [address] Jan, [facility] [address] [id number] [place] [address] Dec, [facility] [address] [id number] [place] [address] Dec, [facility] [address] [id number] [place] [address] Dec, [facility] [address] [id number] [place] [address] Dec, [facility] [address] [facility] [id number] [place] [address] Dec, [facility] [address] [facility] [id number] [place] [address] Dec, [facility] [address] [id number] [place] [address] Dec, [facility] [address] [facility] [id number] [place] [address] Dec, [facility] [address] [id number] [place] [address] Dec, [facility] [address] [id number] [place] [address] Dec, [facility] [address] [id number] [place] [address] Dec, [facility] [address] [id number] [place] [address] Dec, [facility] [address] [id number] [place] [address] Nov, [facility] [address] [id number] [place] [address] Nov, [facility] [address] [id number] [place] [address] Nov, [facility] [address] [id number] [place] [address] Nov, [facility] [address] [facility] [id number] [place] [address] Nov, [facility] [address] [id number] [place] [address] Nov, [facility] [address] [id number] [place] [address] 16 Nov, 2013 [facility] [address] [id number] [place] [address] Nov, [facility] [address] [id number] [facility] [place] [address] Nov, [facility] [address] [facility] [id number] [facility] [place] [address] Nov, [facility] [address] [facility] [id number] [place] [address] October, [facility] [address] [id number] [place] [address] October, [facility] [address] [facility] [id number] [facility] [place] [address] October, [facility] [address] [id number] [place] [address] October, [facility] [address] [id number] [place] [address] October, [facility] [address] [id number] [place] [address] October, [facility] [address] [facility] [id number] [place] [address] Sep, [facility] [address] [id number] [facility] [place] [address] Sep, [facility] [address] [id number] [place] [address] Sep, [facility] [address] [id number] [place] [address] Sep, [facility] [address] [facility] [id number] [place] [address] Sep, [facility] [address] [id number] [place] [address] Sep, [facility] [address] [facility] [id number] [place] [address] Aug, [facility] [address] [id number] [place] [address] Aug, [facility] [address] [id number] [place] [address] Aug, [facility] [address] [id number] [place] [address] Aug, [facility] [address] [id number] [place] [address] Aug, [facility] [address] [place] [id number] [place] [address] Jun, [facility] [address] [place] [id number] [place] [address] Jun, [facility] [address] [id number] [place] [address] Jun, [facility] [address] [place] [id number] [place] [address] Jun, [facility] [address] [place] [id number] [place] [address] Jun, [facility] [address] [place] [id number] [place] [address] Jun, [facility] [address] [id number] [place] [address] Jun, [facility] [address] [place] [id number] [place] [address] Mar, [facility] [address] [place] [id number] [place] [address] Mar, IMMUNIZATIONS No Known Immunizations SOCIAL HISTORY [...] attacks Medical History Major depressive disorder, single episod e, unspecified Medical History Chronic GERD Surgical History appendectomy age 12-13 Surgical History cyct removal on LT wrist 01/03 Surgical History cholecystectomy Hospitalization History Hospitalization for surgery only Hospitalization History childbirth
--- OUTSIDE RECORDS SUMMARY | 2019-08-12 20:12 | XMS REPORT ---
Author Author Bridgett Cleveland Organization [facility] Address [address] [place] [address] Care Team Providers Care Engine Testing Supervisor Name Role Phone SARAH Cleveland Unavailable PROBLEMS Type Condition ICD9-CM Code [id number] Code Onset Dates Condition S tatus SNOMED Code Problem Migraine headache G43.909 Active 37 271324 Problem Mixed hyperlipidemia E78.2 Active [id number] ALLERGIES No Information ENCOUNTERS Encounter Location Date Diagnosis [place] [address] [address] Apr, [place] [address] [address] Feb, Mixed hyperlipidemia E78.2 ; Palpitation s R00.2 and Abnormal thyroid blood test R94.6 [facility] [address] [address] Dec, [facility] [address] [address] Dec, [facility] [address] [address] Nov, Exercise counseling Z71.82 [facility] W[facility]ARE [address] [facility] [id number] [place] [address] Nov, Impetigo L01.00 and Morbid o besity E66.01 [facility] [address] [address] Nov, Exercise counseling Z71.82 [facility] [address] [address] October, Exercise counseling Z71.82 [place] [address] [address] October, Exercise counseling Z71.82 [place] [address] [address] Sep, Mixed hyperlipidemia E78.2 ; Weight loss counseling, encounter for Z71.3 ; 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 and Morbid obesity E66.01 [place] [address] [address] Sep, Exercise counseling Z71.82 [place] [address] [address] Sep, Exercise counseling Z71.82 [place] [address] [address] Sep, Exercise counseling Z71.82 [place] [address] [address] Sep, Exercise counseling Z71.82 [place] [address] [address] Aug, Screening for diabetes mellitus Z13.1 [place] [address] [address] Aug, Screening for diabetes mellitus Z13.1 [place] [address] [address] Aug, Exercise counseling Z71.82 [place] [address] [address] Aug, Encounter for initial prescription of co ntraceptive pills Z30.011 ; Contraception management Z30.9 ; Contraceptive education Z30.09 ; Mixed hyperlipidemia E78.2 ; Weight loss counseling, encounter for Z71.3 ; Screening for diabetes mellitus Z13.1 ; Screening for thyroid disorder Z13.29 ; History of anemia Z86.2 and Morbid obesity E66.01 [facility] WALK IN [facility] [address] [facility] [id number] [address] [address] October, Seasonal allergic rhinitis, unspecified trigger J30.2 and BMI 40.0-44.9, adult Z68.41 [place] [address] [place] [id number] [place] [address] 04 Sep, 2017 Pelvic pain R10.2 ; Chronic GERD K21.9 a nd BMI 40.0-44.9, adult Z68.41 [place] [address] [address] 20 Jul, 2017 [facility] WALK IN [place] [id number] [address] [address] Apr, Sore throat J02.9 ; Acute re current streptococcal tonsillitis J03.01 and BMI 40.0-44.9, adult Z68.41 [facility] IN [place] [id number] [address] [address] 09 Mar, 2017 Sore throat J02.9 and Acute non-recurrent streptococcal tonsillitis J03.[address] [address] Feb, [facility] [address] [id number] [place] [id number] Jan, Anxiety and depression F41.8 [facility] [address] [id number] [place] [id number] Dec, [address] [address] Nov, [address] [address] Jun, Normal in multigravida Z34.80 and First trimester Z33.[address] [address] Jun, 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 and Legal Assistant 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 ear H92.[address] [address] May, [facility] IN [place] [id number] [address] [address] May, Late menses N91.0 and Acute suppurative otitis media of left ear without spontaneous rupture of tympanic membrane, recurrence not specified H66.002 [place] [address] [address] May, [facility] [address] [address] Apr, [facility] [address] [facility] [id number] [address] [place] [address] Apr, Vaginal discharge N89.8 and Vaginal yeast infection B37.3 [place] [address] [address] Mar, [place] [address] [address] Feb, [place] [address] [address] Feb, [place] [address] [address] 15 Feb, 2016 Abnormal cholesterol test E78.9 [place] [address] [address] 14 Feb, 2016 History of UTI Z87.440 ; Mixed hyperlipi demia E78.2 and Abnormal thyroid blood test R94.6 [facility] [address] [place] [address] Jan, [place] [address] [address] Jan, [place] [address] [address] Jan, Chest pain, unspecified type R07.9 ; Pal pitations R00.2 ; Hyperlipidemia, unspecified hyperlipidemia type E78.5 and Dyspnea, unspecified type R06.00 [place] [address] [address] Jan, [place] [address] [address] Dec, [facility] WALK IN [facility] [address] [place] [id number] [address] [address] Dec, Upper respiratory tract infe ction, unspecified type J06.9 [place] [address] [address] Dec, Major depressive disorder, single episod e, unspecified F32.9 and Panic attacks F41.0 [place] [address] [address] Nov, History of anemia Z86.2 ; Abnormal thyro id blood test R94.6 ; Mixed hyperlipidemia E78.2 ; Migraine headache G43.909 and Acute maxillary sinusitis, recurrence not specified J01.00 [place] [address] [address] Nov, 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 and Chondromalacia patellae of right knee M22.41 [place] [address] [address] Nov, Abnormal thyroid blood test R94.6 and Ab normal cholesterol test E78.9 [place] [address] [address] October, History of palpitations Z87.898 ; Pain i n left knee M25.562 and Pain in right knee M25.561 [place] [address] [address] Sep, Pelvic pain in female 625.9 [place] [address] [address] Sep, Pelvic pain R10.2 ; Galactorrhea in fema le N64.3 ; Knee pain, left M25.562 and Knee pain, right M25.561 [facility] [address] [facility] [id number] [place] [address] Aug, Cough R05 and Laceration of thumb, left S61.012A [place] [address] [address] 09 Aug, 2015 Cough R05 ; History of UTI Z87.440 and C ontraception management Z30.9 [place] [address] [address] 02 Aug, 2015 History of UTI Z87.440 and Irregular men ses N92.6 [place] [address] [address] 18 Jul, 2015 Leukopenia D72.819 and Neutropenia D70.9 [place] [address] [address] 18 Jul, 2015 Leukopenia D72.819 and Neutropenia D70.9 [place] [address] [address] 17 Jul, 2015 Migraine headache G43.909 ; Heart burn R 12 and History of long-term use of multiple prescription drugs Z92.29 [facility] IN [facility] [address] [facility] [id number] [address] [place] [address] 15 Jul, 2015 Vaginal discharge N89.8 ; Hi gh risk sexual behavior Z72.51 ; Unprotected sex Z72.51 ; Acute upper respiratory infection, unspecified J06.9 and Other viral agents as the cause of diseases classified elsewhere B97.89 [place] [address] [address] 04 Jul, 2015 Sore throat J02.9 ; Sinusitis J32.9 and Fever R50.9 [place] [address] [address] Jun, Migraine headache G43.909 and Heart burn R12 [place] [address] [address] Jun, [place] [address] [address] Jun, [place] [address] [address] 06 Jun, 2015 Evaluation regarding contraception optio ns Z30.09 ; Encounter for Depo-Provera contraception Z30.42 ; 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 269A [facility] WALK IN [address] [address] May, Sore throat J02.[address] [address] 24 Feb, 2015 Pelvic pain in female 625.9 and Menorrha ciro 626.[address] [address] Dec, Diarrhea 787.[address] [address] Dec, Pelvic pain in female 625.9 and Ganglion cyst of wrist 727.[address] [address] Nov, Eczema 692.[address] [address] Nov, [address] [address] 14 Sep, [address] [address] 13 Sep, [address] [address] Jul, [facility] [place] [facility] [address] [id number] [place] [address] Jul, [facility] [place] [facility] [address] [id number] [place] [address] Jun, [facility] [place] [facility] [address] [id number] [place] [address] Jun, [facility] [place] [facility] [address] [id number] [place] [address] Jun, [facility] [place] [facility] [address] [id number] [place] [address] Jun, [facility] [place] [facility] [address] [id number] [place] [address] Jun, [facility] [place] [facility] [address] [id number] [place] [address] Jun, [facility] [place] [facility] [address] [place] [id number] [place] [address] Jun, [facility] [place] [facility] [address] [id number] [place] [address] Jun, [facility] [place] [facility] [address] [id number] [place] [address] May, [facility] [place] [facility] [address] [id number] [place] [address] May, [facility] [place] [facility] [address] [id number] [place] [address] May, [facility] [place] [facility] [address] [id number] [place] [address] May, [facility] [place] [facility] [address] [id number] [place] [address] Apr, [facility] [place] [facility] [address] [id number] [place] [address] Apr, [facility] [place] [facility] [address] [id number] [place] [address] Apr, [facility] [place] [facility] [address] [id number] [place] [address] Apr, [facility] [place] [facility] [address] [facility] [id number] [place] [address] Apr, [facility] [place] [facility] [address] [facility] [id number] [place] [address] Apr, [facility] [place] [facility] [address] [id number] [place] [address] 29 Feb, 2013 [facility] [place] [facility] [address] [facility] [id number] [place] [address] 29 Feb, 2013 [facility] [place] [facility] [address] [facility] [id number] [facility] [address] Feb, 2013 [facility] [place] [facility] [address] [id number] [place] [address] Feb, 2013 [facility] [place] [facility] [address] [id number] [place] [address] Feb, 2013 [facility] [place] [facility] [address] [id number] [place] [address] Feb, 2013 [facility] [place] [facility] [address] [facility] [id number] [place] [address] 25 Feb, 2013 [facility] [place] [facility] [address] [id number] [place] [address] 25 Feb, 2013 [facility] [place] [facility] [address] [id number] [place] [address] 23 Feb, 2013 [facility] [place] [facility] [address] [id number] [place] [address] 23 Feb, 2013 [facility] [place] [facility] [address] [facility] [id number] [place] [address] 22 Feb, 2013 [facility] [place] [facility] [address] [id number] [place] [address] 22 Feb, 2013 [facility] [place] [facility] [address] [facility] [id number] [place] [address] 19 Feb, 2013 [facility] [place] [facility] [address] [id number] [place] [address] 19 Feb, 2013 [facility] [place] [facility] [address] [id number] [facility] [address] 12 Feb, 2013 [facility] [place] [facility] [address] [id number] [facility] [place] [address] Feb, 2013 [facility] [place] [facility] [address] [facility] [id number] [facility] [address] Feb, 2013 [facility] [place] [facility] [address] [id number] [place] [address] Feb, [facility] [place] [facility] [address] [facility] [id number] [facility] [address] Feb, [facility] [place] [facility] [address] [id number] [facility] [address] Feb, [facility] [place] [facility] [address] [id number] [place] [address] Jan, [facility] [place] [facility] [address] [id number] [place] [address] Jan, [facility] [place] [facility] [address] [id number] [place] [address] Jan, [facility] [place] [facility] [address] [facility] [id number] [place] [address] Jan, [facility] [place] [facility] [address] [id number] [place] [address] Jan, [facility] [place] [facility] [address] [id number] [place] [address] Jan, [facility] [place] [facility] [address] [id number] [place] [address] Jan, [facility] [place] [facility] [address] [id number] [place] [address] Jan, [facility] [place] [facility] [address] [id number] [place] [address] Dec, [facility] [place] [facility] [address] [facility] [id number] [place] [address] Dec, [facility] [place] [facility] [address] [id number] [place] [address] Dec, [facility] [place] [facility] [address] [facility] [id number] [place] [address] Dec, 2013 [facility] [place] [facility] [address] [facility] [id number] [place] [address] Dec, [facility] [place] [facility] [address] [facility] [id number] [place] [address] Dec, 2013 [facility] [place] [facility] [address] [id number] [place] [address] Dec, 2013 [facility] [place] [facility] [address] [facility] [id number] [place] [address] Dec, [facility] [place] [facility] [address] [id number] [place] [address] Dec, [facility] [place] [facility] [address] [id number] [place] [address] Dec, [facility] [place] [facility] [address] [id number] [place] [address] Dec, [facility] [place] [facility] [address] [id number] [place] [address] Dec, [facility] [place] [facility] [address] [id number] [place] [address] Nov, [facility] [place] [facility] [address] [id number] [place] [address] Nov, [facility] [place] [facility] [address] [id number] [place] [address] Nov, [facility] [place] [facility] [address] [id number] [place] [address] Nov, [facility] [place] [facility] [address] [facility] [id number] [place] [address] Nov, [facility] [place] [facility] [address] [id number] [place] [address] Nov, [facility] [place] [facility] [address] [id number] [place] [address] 16 Nov, 2013 [facility] [place] [facility] [address] [id number] [place] [address] Nov, [facility] [place] [facility] [address] [facility] [id number] [facility] [address] Nov, [facility] [place] [facility] [address] [facility] [id number] [facility] [address] Nov, [facility] [place] [facility] [address] [id number] [facility] [address] October, [facility] [place] [facility] [address] [facility] [id number] [place] [address] October, [facility] [place] [facility] [address] [facility] [id number] [facility] [address] October, [facility] [place] [facility] [address] [id number] [facility] [place] [address] October, [facility] [place] [facility] [address] [id number] [place] [address] October, [facility] [place] [facility] [address] [id number] [place] [address] October, [facility] [place] [facility] [address] [facility] [id number] [facility] [address] Sep, [facility] [place] [facility] [address] [id number] [facility] [address] Sep, [facility] [place] [facility] [address] [id number] [place] [address] Sep, [facility] [place] [facility] [address] [id number] [facility] [place] [address] Sep, [facility] [place] [facility] [address] [facility] [id number] [facility] [address] Sep, [facility] [place] [facility] [address] [id number] [place] [address] Sep, [facility] [place] [facility] [address] [facility] [id number] [facility] [address] Aug, [facility] [place] [facility] [address] [id number] [facility] [address] Aug, [facility] [place] [facility] [address] [place] [id number] [place] [address] Aug, [facility] [address] [place] [id number] [place] [address] Aug, [facility] [address] [place] [id number] [place] [address] Aug, [facility] [address] [place] [id number] [place] [address] Jun, [facility] [address] [place] [id number] [place] [address] Jun, [facility] [address] [place] [id number] [place] [address] Jun, [facility] [address] [place] [id number] [place] [address] Jun, [facility] [address] [place] [id number] [place] [address] Jun, [facility] [address] [place] [address] [id number] [place] [address] Jun, [facility] [address] [place] [address] [id number] [place] [address] Jun, [facility] [address] [place] [id number] [place] [address] Mar, [facility] [address] [place] [address] [id number] [place] [address] Mar, IMMUNIZATIONS No Known Immunizations SOCIAL HISTORY Never Assessed REASON FOR VISIT PLAN OF CARE VITAL SIGNS Height 65 in 2013-10-12 Weight 227.51 lbs 2013-10-12 Temperature 98.6 degrees Fahrenheit 2013-10-12 Heart Rate 78 bpm 2013-10-12 Respiratory Rate 20 2013-10-12 Blood pressure systolic 120 mmHg 2013-10-12 Blood pressure diastolic 78 mmHg 2013-10-12 MEDICATIONS Unknown Medications RESULTS No Results PROCEDURES Procedure Date Ordered Result Body Site TRICHOMONAS VAGIN, DIR PROBE October 12, 2013 CHYLMD TRACH, DNA, AMP PROBE October 12, 2013 CULTURE, BACTERIA, OTHER October 12, 2013 URINALYSIS, AUTO, W/O SCOPE October 12, 2013 INSTRUCTIONS MEDICATIONS ADMINISTERED No Known Medications MEDICAL [...]
--- OUTSIDE RECORDS SUMMARY | 2019-08-12 20:12 | XMS REPORT ---
Author Author Bridgett TORRES [facility] Address [address] [place] [address] Care Team Providers Care Sort Worker Name Role Phone ESTEFANIA TORRES Unavailable PROBLEMS Type Condition ICD9-CM Code KLE28-DI Code Onset Dates Condition S tatus SNOMED Code Problem Migraine headache G43.909 Active 37 055698 Problem Mixed hyperlipidemia E78.2 Active [id number] ALLERGIES No Information ENCOUNTERS Encounter Location Date Diagnosis [place] [address] [address] Apr, [address] [address] Feb, Mixed hyperlipidemia E78.2 ; Palpitation s R00.2 and Abnormal thyroid blood test R94.6 [facility] [place] [address] [address] Dec, [place] [address] [address] Dec, [facility] [place] [address] [address] Nov, Exercise counseling Z71.82 [facility] [address] [facility] [id number] [address] [address] Nov, Impetigo L01.00 and Morbid o besity E66.01 [facility] [place] [address] [address] Nov, Exercise counseling Z71.82 [facility] [place] [address] [address] October, Exercise counseling Z71.82 [place] [address] [address] October, Exercise counseling Z71.82 [place] [address] [address] Sep, Mixed hyperlipidemia E78.2 ; Weight loss counseling, encounter for Z71.3 ; 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 and Morbid obesity E66.01 [place] [address] [address] Sep, Exercise counseling Z71.82 [place] [address] [address] Sep, Exercise counseling Z71.82 [place] [address] [address] Sep, Exercise counseling Z71.82 [place] [address] [address] Sep, Exercise counseling Z71.82 [place] [address] [address] Aug, Screening for diabetes mellitus Z13.1 [place] [address] [address] Aug, Screening for diabetes mellitus Z13.1 [place] [address] [address] Aug, Exercise counseling Z71.82 [place] [address] [address] Aug, Encounter for initial prescription of co ntraceptive pills Z30.011 ; Contraception management Z30.9 ; Contraceptive education Z30.09 ; Mixed hyperlipidemia E78.2 ; Weight loss counseling, encounter for Z71.3 ; Screening for diabetes mellitus Z13.1 ; Screening for thyroid disorder Z13.29 ; History of anemia Z86.2 and Morbid obesity E66.01 [facility] [address] [facility] [id number] [address] [place] [address] October, Seasonal allergic rhinitis, unspecified trigger J30.2 and BMI 40.0-44.9, adult Z68.41 [place] [address] [place] [id number] [place] [address] 04 Sep, 2017 Pelvic pain R10.2 ; Chronic GERD K21.9 a nd BMI 40.0-44.9, adult Z68.41 [place] [address] [place] [id number] [place] [address] 20 Jul, 2017 [facility] [place] [id number] [address] [place] [address] 07 Apr, 2017 Sore throat J02.9 ; Acute re current streptococcal tonsillitis J03.01 and BMI 40.0-44.9, adult Z68.41 [facility] IN [place] [id number] [address] [place] [address] 09 Mar, 2017 Sore throat J02.9 and Acute non-recurrent streptococcal tonsillitis J03.00 [place] [address] [address] 05 Feb, [address] [place] [address] [id number] [place] [id number] Jan, Anxiety and depression F41.[address] [place] [address] [id number] [id number] Dec, [place] [address] [address] Nov, [address] [address] Jun, Normal in multigravida Z34.80 and First trimester Z33.[address] [address] Jun, 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 and Card Hand 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 ear H92.[address] [address] May, [facility] [place] [address] [id number] [address] [place] [address] May, Late menses N91.0 and Acute suppurative otitis media of left ear without spontaneous rupture of tympanic membrane, recurrence not specified H66.002 [place] [address] [address] May, [facility], [place] [address] [address] Apr, [facility] [address] [facility] [id number] [address] [place] [address] Apr, Vaginal discharge N89.8 and Vaginal yeast infection B37.3 [place] [address] [address] Mar, [place] [address] [address] Feb, [place] [address] [address] Feb, [place] [address] [address] 15 Feb, 2016 Abnormal cholesterol test E78.9 [place] [address] [address] 14 Feb, 2016 History of UTI Z87.440 ; Mixed hyperlipi demia E78.2 and Abnormal thyroid blood test R94.6 [facility] [address] [place] [address] Jan, [place] [address] [address] Jan, [place] [address] [address] Jan, Chest pain, unspecified type R07.9 ; Pal pitations R00.2 ; Hyperlipidemia, unspecified hyperlipidemia type E78.5 and Dyspnea, unspecified type R06.00 [place] [address] [address] Jan, [place] [address] [address] Dec, [facility] [address] [facility] [id number] [place] [address] Dec, Upper respiratory tract infe ction, unspecified type J06.9 [place] [address] [address] Dec, Major depressive disorder, single episod e, unspecified F32.9 and Panic attacks F41.0 [place] [address] [address] Nov, History of anemia Z86.2 ; Abnormal thyro id blood test R94.6 ; Mixed hyperlipidemia E78.2 ; Migraine headache G43.909 and Acute maxillary sinusitis, recurrence not specified J01.00 [place] [address] [address] Nov, 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 and Chondromalacia patellae of right knee M22.41 [place] [address] [address] Nov, Abnormal thyroid blood test R94.6 and Ab normal cholesterol test E78.9 [place] [address] [address] October, History of palpitations Z87.898 ; Pain i n left knee M25.562 and Pain in right knee M25.561 [place] [address] [address] Sep, Pelvic pain in female 625.9 [place] [address] [address] Sep, Pelvic pain R10.2 ; Galactorrhea in fema le N64.3 ; Knee pain, left M25.562 and Knee pain, right M25.561 [facility] [address] [facility] [id number] [place] [address] Aug, Cough R05 and Laceration of thumb, left S61.012A [place] [address] [address] 09 Aug, 2015 Cough R05 ; History of UTI Z87.440 and C ontraception management Z30.9 [place] [address] [place] [id number] 02 Aug, 2015 History of UTI Z87.440 and Irregular men ses N92.6 [place] [address] [address] 18 Jul, 2015 Leukopenia D72.819 and Neutropenia D70.9 [place] [address] [address] 18 Jul, 2015 Leukopenia D72.819 and Neutropenia D70.9 [place] [address] [address] 17 Jul, 2015 Migraine headache G43.909 ; Heart burn R 12 and History of long-term use of multiple prescription drugs Z92.29 [facility] IN [facility] [address] [facility] [id number] [address] [place] [address] 15 Jul, 2015 Vaginal discharge N89.8 ; Hi gh risk sexual behavior Z72.51 ; Unprotected sex Z72.51 ; Acute upper respiratory infection, unspecified J06.9 and Other viral agents as the cause of diseases classified elsewhere B97.[address] [address] 04 Jul, 2015 Sore throat J02.9 ; Sinusitis J32.9 and Fever R50.9 [place] [address] [address] Jun, Migraine headache G43.909 and Heart burn R12 [address] [address] Jun, [address] [address] Jun, [address] [address] Jun, Evaluation regarding contraception optio ns Z30.09 ; Encounter for Depo-Provera contraception Z30.42 ; 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 269A [facility] [address] [place] [address] May, Sore throat J02.[address] [address] Feb, Pelvic pain in female 625.9 and Menorrha ciro 626.[address] [address] Dec, Diarrhea 787.[address] [address] Dec, Pelvic pain in female 625.9 and Ganglion cyst of wrist 727.[address] [address] Nov, Eczema 692.[address] [address] Nov, [address] [address] 14 Sep, [address] [address] Sep, [address] [address] Jul, [facility] [address] [id number] [place] [address] Jul, [facility] [address] [id number] [place] [address] Jun, [facility] [address] [id number] [place] [address] Jun, [facility] [address] [id number] [place] [address] Jun, [facility] [address] [id number] [place] [address] Jun, [facility] [address] [id number] [place] [address] Jun, [facility] [address] [id number] [place] [address] Jun, [facility] [address] [place] [id number] [place] [address] Jun, [facility] [address] [id number] [place] [address] Jun, [facility] [address] [id number] [place] [address] May, [facility] [address] [id number] [place] [address] May, [facility] [address] [id number] [place] [address] May, [facility] [address] [id number] [place] [address] May, [facility] [address] [id number] [place] [address] Apr, [facility] [address] [id number] [place] [address] Apr, [facility] [address] [id number] [place] [address] Apr, [facility] [address] [id number] [place] [address] Apr, [facility] [address] [id number] [place] [address] Apr, [facility] [address] [facility] [id number] [place] [address] Apr, [facility] [address] [id number] [place] [address] 29 Feb, 2013 [facility] [address] [id number] [place] [address] 29 Feb, 2013 [facility] [address] [facility] [id number] [place] [address] Feb, 2013 [facility] [address] [id number] [place] [address] Feb, 2013 [facility] [address] [id number] [place] [address] Feb, 2013 [facility] [address] [id number] [place] [address] Feb, 2013 [facility] [address] [id number] [place] [address] 25 Feb, 2013 [facility] [address] [id number] [place] [address] 25 Feb, 2013 [facility] [address] [id number] [place] [address] 23 Feb, 2013 [facility] [address] [id number] [place] [address] 23 Feb, 2013 [facility] [address] [facility] [id number] [place] [address] 22 Feb, 2013 [facility] [address] [id number] [place] [address] 22 Feb, 2013 [facility] [address] [id number] [place] [address] 19 Feb, 2013 [facility] [address] [id number] [place] [address] 19 Feb, 2013 [facility] [address] [id number] [place] [address] 12 Feb, 2013 [facility] [address] [id number] [facility] [place] [address] Feb, 2013 [facility] [address] [facility] [id number] [place] [address] Feb, [facility] [address] [id number] [place] [address] Feb, [facility] [address] [facility] [id number] [place] [address] Feb, [facility] [address] [id number] [facility] [place] [address] Feb, [facility] [address] [id number] [place] [address] Jan, [facility] [address] [id number] [place] [address] Jan, [facility] [address] [id number] [place] [address] Jan, [facility] [address] [id number] [place] [address] Jan, [facility] [address] [id number] [place] [address] Jan, [facility] [address] [id number] [place] [address] Jan, [facility] [address] [id number] [place] [address] Jan, [facility] [address] [id number] [place] [address] Jan, [facility] [address] [id number] [place] [address] Dec, [facility] [address] [id number] [place] [address] Dec, [facility] [address] [id number] [place] [address] Dec, [facility] [address] [id number] [place] [address] Dec, [facility] [address] [facility] [id number] [place] [address] Dec, [facility] [address] [facility] [id number] [place] [address] Dec, [facility] [address] [id number] [place] [address] Dec, [facility] [address] [facility] [id number] [place] [address] Dec, [facility] [address] [id number] [place] [address] Dec, [facility] [address] [id number] [place] [address] Dec, [facility] [address] [id number] [place] [address] Dec, [facility] [address] [id number] [place] [address] Dec, [facility] [address] [id number] [place] [address] Nov, [facility] [address] [id number] [place] [address] Nov, [facility] [address] [id number] [place] [address] Nov, [facility] [address] [id number] [place] [address] Nov, [facility] [address] [facility] [id number] [place] [address] Nov, [facility] [address] [id number] [place] [address] Nov, [facility] [address] [id number] [place] [address] 16 Nov, 2013 [facility] [address] [id number] [place] [address] Nov, [facility] [address] [id number] [facility] [place] [address] Nov, [facility] [address] [facility] [id number] [facility] [place] [address] Nov, [facility] [address] [facility] [id number] [place] [address] October, [facility] [address] [id number] [place] [address] October, [facility] [address] [facility] [id number] [facility] [place] [address] October, [facility] [address] [id number] [place] [address] October, [facility] [address] [id number] [place] [address] October, [facility] [address] [id number] [place] [address] October, [facility] [address] [facility] [id number] [place] [address] Sep, [facility] [address] [id number] [facility] [place] [address] Sep, [facility] [address] [id number] [place] [address] Sep, [facility] [address] [id number] [place] [address] Sep, [facility] [address] [facility] [id number] [place] [address] Sep, [facility] [address] [id number] [place] [address] Sep, [facility] [address] [facility] [id number] [place] [address] Aug, [facility] [address] [id number] [place] [address] Aug, [facility] [address] [id number] [place] [address] Aug, [facility] [place] [address] [id number] [place] [address] Aug, [facility] [place] [address] [id number] [place] [address] Aug, [facility] [place] [address] [place] [id number] [place] [address] Jun, [facility] [place] [address] [place] [id number] [place] [address] Jun, [facility] [place] [address] [id number] [place] [address] Jun, [facility] [place] [address] [place] [id number] [place] [address] Jun, [facility] [place] [address] [place] [id number] [place] [address] Jun, [facility] [place] [address] [place] [id number] [place] [address] Jun, [facility] [place] [address] [id number] [place] [address] Jun, [facility] [place] [address] [place] [id number] [place] [address] Mar, [facility] [place] [address] [place] [id number] [place] [address] Mar, IMMUNIZATIONS No Known Immunizations SOCIAL HISTORY [...]
--- OUTSIDE RECORDS SUMMARY | 2019-08-12 20:12 | XMS REPORT ---
Author Author Bridgett Cleveland Organization 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 [address] [address] Dec, [facility] [address] [address] Dec, [facility] [address] [address] Nov, Exercise counseling Z71.82 [facility] [address] [facility] [id number] [place] [address] Nov, Impetigo L01.00 and Morbid o besity E66.01 [facility] [address] [address] Nov, Exercise counseling Z71.82 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 and Morbid obesity E66.01 [place] [address] [address] Sep, Exercise counseling Z71.82 [place] [address] [address] Sep, Exercise counseling Z71.82 [place] [address] [address] Sep, Exercise counseling Z71.82 [place] [address] [address] Sep, Exercise counseling Z71.82 [place] [address] [address] Aug, Screening for diabetes mellitus Z13.1 [place] [address] [address] Aug, Screening for diabetes mellitus Z13.1 [place] [address] [address] Aug, Exercise counseling Z71.82 [place] [address] [address] Aug, Encounter for initial prescription of co ntraceptive pills Z30.011 ; Contraception management Z30.9 ; Contraceptive education Z30.09 ; Mixed hyperlipidemia E78.2 ; Weight loss counseling, encounter for Z71.3 ; Screening for diabetes mellitus Z13.1 ; Screening for thyroid disorder Z13.29 ; History of anemia Z86.2 and Morbid obesity E66.01 [facility] [address] [facility] [id number] [address] [place] [address] October, Seasonal allergic rhinitis, unspecified trigger J30.2 and BMI 40.0-44.9, adult Z68.41 [place] [address] [place] [id number] [place] [address] 04 Sep, 2017 Pelvic pain R10.2 ; Chronic GERD K21.9 a nd BMI 40.0-44.9, adult Z68.41 [place] [address] [address] 20 Jul, 2017 [facility] [place] [id number] [address] [place] [address] Apr, Sore throat J02.9 ; Acute re current streptococcal tonsillitis J03.01 and BMI 40.0-44.9, adult Z68.41 [facility] IN [place] [id number] [address] [place] [address] 09 Mar, 2017 Sore throat J02.9 and Acute non-recurrent streptococcal tonsillitis J03.[address] [address] Feb, [facility] [address] [id number] [place] [id number] Jan, Anxiety and depression F41.8 [facility] [address] [id number] [place] [id number] Dec, [address] [address] Nov, [address] [address] Jun, Normal in multigravida Z34.80 and First trimester Z33.[address] [address] Jun, 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 [address] [address] Apr, [facility] [address] [facility] [id number] [address] [place] [address] Apr, Vaginal discharge N89.8 and Vaginal yeast infection B37.3 [place] [address] [address] Mar, [place] [address] [address] Feb, [place] [address] [address] Feb, [place] [address] [address] 15 Feb, 2016 Abnormal cholesterol test E78.9 [place] [address] [address] 14 Feb, 2016 History of UTI Z87.440 ; Mixed hyperlipi demia E78.2 and Abnormal thyroid blood test R94.6 [facility] [address] [place] [address] Jan, [place] [address] [address] Jan, [place] [address] [address] Jan, Chest pain, unspecified type R07.9 ; Pal pitations R00.2 ; Hyperlipidemia, unspecified hyperlipidemia type E78.5 and Dyspnea, unspecified type R06.00 [place] [address] [address] Jan, [place] [address] [address] Dec, [facility] [address] [place] [id number] [address] [place] [address] Dec, Upper respiratory tract infe ction, unspecified type J06.9 [place] [address] [address] Dec, Major depressive disorder, single episod e, unspecified F32.9 and Panic attacks F41.0 [place] [address] [address] Nov, History of anemia Z86.2 ; Abnormal thyro id blood test R94.6 ; Mixed hyperlipidemia E78.2 ; Migraine headache G43.909 and Acute maxillary sinusitis, recurrence not specified J01.00 [place] [address] [address] Nov, 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 and Chondromalacia patellae of right knee M22.41 [place] [address] [address] Nov, Abnormal thyroid blood test R94.6 and Ab normal cholesterol test E78.9 [place] [address] [address] October, History of palpitations Z87.898 ; Pain i n left knee M25.562 and Pain in right knee M25.561 [place] [address] [address] Sep, Pelvic pain in female 625.9 [place] [address] [address] Sep, Pelvic pain R10.2 ; Galactorrhea in fema le N64.3 ; Knee pain, left M25.562 and Knee pain, right M25.561 [facility] [address] [facility] [id number] [place] [address] Aug, Cough R05 and Laceration of thumb, left S61.012A [place] [address] [address] 09 Aug, 2015 Cough R05 ; History of UTI Z87.440 and C ontraception management Z30.9 [place] [address] [address] 02 Aug, 2015 History of UTI Z87.440 and Irregular men ses N92.6 [place] [address] [address] 18 Jul, 2015 Leukopenia D72.819 and Neutropenia D70.9 [place] [address] [address] 18 Jul, 2015 Leukopenia D72.819 and Neutropenia D70.9 [place] [address] [address] 17 Jul, 2015 Migraine headache G43.909 ; Heart burn R 12 and History of long-term use of multiple prescription drugs Z92.29 [facility] [address] [facility] [id number] [address] [place] [address] 15 Jul, 2015 Vaginal discharge N89.8 ; Hi gh risk sexual behavior Z72.51 ; Unprotected sex Z72.51 ; Acute upper respiratory infection, unspecified J06.9 and Other viral agents as the cause of diseases classified elsewhere B97.89 [place] [address] [address] 04 Jul, 2015 Sore throat J02.9 ; Sinusitis J32.9 and Fever R50.9 [place] [address] [address] Jun, Migraine headache G43.909 and Heart burn R12 [place] [address] [address] Jun, [place] [address] [address] Jun, [place] [address] [address] 06 Jun, 2015 Evaluation regarding contraception optio ns Z30.09 ; Encounter for Depo-Provera contraception Z30.42 ; 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 269A [facility] [id number] [place] [address] May, Sore throat J02.[address] [address] 24 Feb, 2015 Pelvic pain in female 625.9 and Menorrha ciro 626.[address] [address] Dec, Diarrhea 787.[address] [address] Dec, Pelvic pain in female 625.9 and Ganglion cyst of wrist 727.[address] [address] Nov, Eczema 692.[address] [address] Nov, [address] [address] 14 Sep, [address] [address] 13 Sep, [address] [address] Jul, [facility] [place] [facility] [address] [id number] [place] [address] Jul, [facility] [place] [facility] [address] [id number] [place] [address] Jun, [facility] [place] [facility] [address] [id number] [place] [address] Jun, [facility] [place] [facility] [address] [id number] [place] [address] Jun, [facility] [place] [facility] [address] [id number] [place] [address] Jun, [facility] [place] [facility] [address] [id number] [place] [address] Jun, [facility] [place] [facility] [address] [id number] [place] [address] Jun, [facility] [place] [facility] [address] [place] [id number] [place] [address] Jun, [facility] [place] [facility] [address] [id number] [place] [address] Jun, [facility] [place] [facility] [address] [id number] [place] [address] May, [facility] [place] [facility] [address] [id number] [place] [address] May, [facility] [place] [facility] [address] [id number] [place] [address] May, [facility] [place] [facility] [address] [id number] [place] [address] May, [facility] [place] [facility] [address] [id number] [place] [address] Apr, [facility] [place] [facility] [address] [id number] [place] [address] Apr, [facility] [place] [facility] [address] [id number] [place] [address] Apr, [facility] [place] [facility] [address] [id number] [place] [address] Apr, [facility] [place] [facility] [address] [facility] [id number] [place] [address] Apr, [facility] [place] [facility] [address] [facility] [id number] [place] [address] Apr, [facility] [place] [facility] [address] [id number] [place] [address] 29 Feb, 2013 [facility] [place] [facility] [address] [facility] [id number] [place] [address] 29 Feb, 2013 [facility] [place] [facility] [address] [facility] [id number] [place] [address] Feb, 2013 [facility] [place] [facility] [address] [id number] [place] [address] Feb, 2013 [facility] [place] [facility] [address] [id number] [place] [address] Feb, 2013 [facility] [place] [facility] [address] [id number] [place] [address] Feb, 2013 [facility] [place] [facility] [address] [facility] [id number] [place] [address] 25 Feb, 2013 [facility] [place] [facility] [address] [id number] [place] [address] 25 Feb, 2013 [facility] [place] [facility] [address] [id number] [place] [address] 23 Feb, 2013 [facility] [place] [facility] [address] [id number] [place] [address] 23 Feb, 2013 [facility] [place] [facility] [address] [facility] [id number] [place] [address] 22 Feb, 2013 [facility] [place] [facility] [address] [id number] [place] [address] 22 Feb, 2013 [facility] [place] [facility] [address] [facility] [id number] [place] [address] 19 Feb, 2013 [facility] [place] [facility] [address] [id number] [place] [address] 19 Feb, 2013 [facility] [place] [facility] [address] [id number] [place] [address] 12 Feb, 2013 [facility] [place] [facility] [address] [id number] [place] [address] Feb, 2013 [facility] [place] [facility] [address] [facility] [id number] [place] [address] Feb, 2013 [facility] [place] [facility] [address] [id number] [place] [address] Feb, [facility] [place] [facility] [address] [facility] [id number] [place] [address] Feb, [facility] [place] [facility] [address] [id number] [place] [address] Feb, [facility] [place] [facility] [address] [id number] [place] [address] Jan, [facility] [place] [facility] [address] [id number] [place] [address] Jan, [facility] [place] [facility] [address] [id number] [place] [address] Jan, [facility] [place] [facility] [address] [facility] [id number] [place] [address] Jan, [facility] [place] [facility] [address] [id number] [place] [address] Jan, [facility] [place] [facility] [address] [id number] [place] [address] Jan, [facility] [place] [facility] [address] [id number] [place] [address] Jan, [facility] [place] [facility] [address] [id number] [place] [address] Jan, [facility] [place] [facility] [address] [id number] [place] [address] Dec, [facility] [place] [facility] [address] [facility] [id number] [place] [address] Dec, [facility] [place] [facility] [address] [id number] [place] [address] Dec, [facility] [place] [facility] [address] [facility] [id number] [place] [address] Dec, 2013 [facility] [place] [facility] [address] [facility] [id number] [place] [address] Dec, [facility] [place] [facility] [address] [facility] [id number] [place] [address] Dec, 2013 [facility] [place] [facility] [address] [id number] [place] [address] Dec, 2013 [facility] [place] [facility] [address] [facility] [id number] [place] [address] Dec, [facility] [place] [facility] [address] [id number] [place] [address] Dec, [facility] [place] [facility] [address] [id number] [place] [address] Dec, [facility] [place] [facility] [address] [id number] [place] [address] Dec, [facility] [place] [facility] [address] [id number] [place] [address] Dec, [facility] [place] [facility] [address] [id number] [place] [address] Nov, [facility] [place] [facility] [address] [id number] [place] [address] Nov, [facility] [place] [facility] [address] [id number] [place] [address] Nov, [facility] [place] [facility] [address] [id number] [place] [address] Nov, [facility] [place] [facility] [address] [facility] [id number] [place] [address] Nov, [facility] [place] [facility] [address] [id number] [place] [address] Nov, [facility] [place] [facility] [address] [id number] [place] [address] 16 Nov, 2013 [facility] [place] [facility] [address] [id number] [place] [address] Nov, [facility] [place] [facility] [address] [facility] [id number] [place] [address] Nov, [facility] [place] [facility] [address] [facility] [id number] [place] [address] Nov, [facility] [place] [facility] [address] [id number] [place] [address] October, [facility] [place] [facility] [address] [facility] [id number] [place] [address] October, [facility] [place] [facility] [address] [facility] [id number] [place] [address] October, [facility] [place] [facility] [address] [id number] [place] [address] October, [facility] [place] [facility] [address] [id number] [place] [address] October, [facility] [place] [facility] [address] [id number] [place] [address] October, [facility] [place] [facility] [address] [facility] [id number] [place] [address] Sep, [facility] [place] [facility] [address] [id number] [place] [address] Sep, [facility] [place] [facility] [address] [id number] [place] [address] Sep, [facility] [place] [facility] [address] [id number] [place] [address] Sep, [facility] [place] [facility] [address] [facility] [id number] [place] [address] Sep, [facility] [place] [facility] [address] [id number] [place] [address] Sep, [facility] [place] [facility] [address] [facility] [id number] [place] [address] Aug, [facility] [place] [facility] [address] [id number] [place] [address] Aug, [facility] [place] [facility] [address] [id number] [place] [address] Aug, [facility] [address] [id number] [place] [address] Aug, [facility] [address] [id number] [place] [address] Aug, [facility] [address] [place] [id number] [place] [address] Jun, [facility] [address] [place] [id number] [place] [address] Jun, [facility] [address] [place] [id number] [place] [address] Jun, [facility] [address] [place] [id number] [place] [address] Jun, [facility] [address] [place] [id number] [place] [address] Jun, [facility] [address] [place] [id number] [place] [address] Jun, [facility] [address] [place] [id number] [place] [address] Jun, [facility] [address] [place] [id number] [place] [address] Mar, [facility] [address] [place] [id number] [place] [address] Mar, IMMUNIZATIONS No Known Immunizations SOCIAL HISTORY [...]
--- OUTSIDE RECORDS SUMMARY | 2019-08-12 20:13 | XMS REPORT ---
Author Author Bridgett TAYLOR [facility] Address [address] [place] [address] Care Team Providers Care Reimbursement Rep Name Role Phone LUDIVINA TAYLOR Unavailable PROBLEMS Type Condition ICD9-CM Code DYY80-YP Code Onset Dates Condition S tatus SNOMED Code Problem Migraine headache G43.909 Active 37 229879 Problem Mixed hyperlipidemia E78.2 Active [id number] ALLERGIES No Known Allergies ENCOUNTERS Encounter Location Date Diagnosis [place] [address] [address] Apr, [place] [address] [address] Feb, Mixed hyperlipidemia E78.2 ; Palpitation s R00.2 and Abnormal thyroid blood test R94.6 [facility] [address] [address] Dec, [facility] [address] [address] Dec, [facility] [address] [address] Nov, Exercise counseling Z71.82 [facility] [address] [facility] [id number] [place] [address] Nov, Impetigo L01.00 and Morbid o besity E66.01 [facility] [address] [address] Nov, Exercise counseling Z71.82 [facility] [address] [address] October, Exercise counseling Z71.82 [place] [address] [address] 14 Oct, 2018 Exercise counseling Z71.82 [place] [address] [address] Sep, Mixed hyperlipidemia E78.2 ; Weight loss counseling, encounter for Z71.3 ; 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 and Morbid obesity E66.01 [place] [address] [address] Sep, Exercise counseling Z71.82 [place] [address] [address] Sep, Exercise counseling Z71.82 [place] [address] [address] Sep, Exercise counseling Z71.82 [place] [address] [address] Sep, Exercise counseling Z71.82 [place] [address] [address] Aug, Screening for diabetes mellitus Z13.1 [place] [address] [address] Aug, Screening for diabetes mellitus Z13.1 [place] [address] [address] Aug, Exercise counseling Z71.82 [place] [address] [address] Aug, Encounter for initial prescription of co ntraceptive pills Z30.011 ; Contraception management Z30.9 ; Contraceptive education Z30.09 ; Mixed hyperlipidemia E78.2 ; Weight loss counseling, encounter for Z71.3 ; Screening for diabetes mellitus Z13.1 ; Screening for thyroid disorder Z13.29 ; History of anemia Z86.2 and Morbid obesity E66.01 [facility] [address] [facility] [id number] [address] [address] October, Seasonal allergic rhinitis, unspecified trigger J30.2 and BMI 40.0-44.9, adult Z68.41 [place] [address] [address] Sep, Pelvic pain R10.2 ; Chronic GERD K21.9 a nd BMI 40.0-44.9, adult Z68.41 [place] [address] [address] Jul, [facility] [address] [place] [address] Apr, Sore throat J02.9 ; Acute re current streptococcal tonsillitis J03.01 and BMI 40.0-44.9, adult Z68.41 [facility] [place] [id number] [address] [place] [address] 09 Mar, 2017 Sore throat J02.9 and Acute non-recurrent streptococcal tonsillitis J03.[address] [address] Feb, [place] [address] [id number] [place] [id number] Jan, Anxiety and depression F41.8 [facility] [address] [id number] [id number] Dec, [address] [address] Nov, [address] [address] Jun, Normal in multigravida Z34.80 and First trimester Z33.[address] [address] Jun, 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 and 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 ear H92.[address] [address] May, [facility] [place] [id number] [address] [place] [address] May, Late menses N91.0 and Acute suppurative otitis media of left ear without spontaneous rupture of tympanic membrane, recurrence not specified H66.002 [place] [address] [address] May, [place] [address] [address] Apr, [facility] [address] [facility] [id number] [address] [place] [address] Apr, Vaginal discharge N89.8 and Vaginal yeast infection B37.3 [place] [address] [address] Mar, [place] [address] [address] Feb, [place] [address] [address] Feb, [place] [address] [address] 15 Feb, 2016 Abnormal cholesterol test E78.[address] [address] 14 Feb, 2016 History of UTI Z87.440 ; Mixed hyperlipi demia E78.2 and Abnormal thyroid blood test R94.6 [facility] [address] [place] [address] Jan, [place] [address] [address] Jan, [place] [address] [address] Jan, Chest pain, unspecified type R07.9 ; Pal pitations R00.2 ; Hyperlipidemia, unspecified hyperlipidemia type E78.5 and Dyspnea, unspecified type R06.00 [place] [address] [address] Jan, [place] [address] [address] Dec, [facility] [address] [place] [id number] [address] [place] [address] Dec, Upper respiratory tract infe ction, unspecified type J06.9 [place] [address] [address] Dec, Major depressive disorder, single episod e, unspecified F32.9 and Panic attacks F41.0 [place] [address] [address] Nov, History of anemia Z86.2 ; Abnormal thyro id blood test R94.6 ; Mixed hyperlipidemia E78.2 ; Migraine headache G43.909 and Acute maxillary sinusitis, recurrence not specified J01.00 [place] [address] [address] Nov, 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 and Chondromalacia patellae of right knee M22.41 [place] [address] [address] Nov, Abnormal thyroid blood test R94.6 and Ab normal cholesterol test E78.9 [place] [address] [address] October, History of palpitations Z87.898 ; Pain i n left knee M25.562 and Pain in right knee M25.561 [place] [address] [address] Sep, Pelvic pain in female 625.9 [place] [address] [address] Sep, Pelvic pain R10.2 ; Galactorrhea in fema le N64.3 ; Knee pain, left M25.562 and Knee pain, right M25.561 [facility] [address] [facility] [id number] [place] [address] Aug, Cough R05 and Laceration of thumb, left S61.012A [place] [address] [address] 09 Aug, 2015 Cough R05 ; History of UTI Z87.440 and C ontraception management Z30.9 [place] [address] [address] 02 Aug, 2015 History of UTI Z87.440 and Irregular men ses N92.6 [place] [address] [address] 18 Jul, 2015 Leukopenia D72.819 and Neutropenia D70.9 [place] [address] [address] 18 Jul, 2015 Leukopenia D72.819 and Neutropenia D70.9 [place] [address] [address] 17 Jul, 2015 Migraine headache G43.909 ; Heart burn R 12 and History of long-term use of multiple prescription drugs Z92.29 [facility] [address] [facility] [id number] [address] [address] 15 Jul, 2015 Vaginal discharge N89.8 ; Hi gh risk sexual behavior Z72.51 ; Unprotected sex Z72.51 ; Acute upper respiratory infection, unspecified J06.9 and Other viral agents as the cause of diseases classified elsewhere B97.89 [place] [address] [address] 04 Jul, 2015 Sore throat J02.9 ; Sinusitis J32.9 and Fever R50.9 [place] [address] [address] Jun, Migraine headache G43.909 and Heart burn R12 [place] [address] [address] Jun, [place] [address] [address] Jun, [place] [address] [address] 06 Jun, 2015 Evaluation regarding contraception optio ns Z30.09 ; Encounter for Depo-Provera contraception Z30.42 ; Encntr for ear nose throat surgeon exam (general) (routine) w/o abn findings Z01.419 ; Pelvic pain R10.2 ; Migraine headache G43.909 and Vaginal discharge N89.8 [place] [address] [address] 10 May, 2015 Overweight E66.3 ; Encounter for immuniz ation Z23 ; Pain of right thumb M79.644 and Headache R51 [facility] [address] [place] [address] [address] [place] [address] May, Insect bite of shoulder S40. 269A [facility] [address] [place] [address] May, Sore throat J02.[address] [address] 24 Feb, 2015 Pelvic pain in female 625.9 and Menorrha ciro 626.[address] [address] Dec, Diarrhea 787.[address] [address] Dec, Pelvic pain in female 625.9 and Ganglion cyst of wrist 727.[address] [address] Nov, Eczema 692.[address] [address] Nov, [address] [address] 14 Sep, [address] [address] 13 Sep, [address] [address] Jul, [facility] [address] [id number] [place] [address] Jul, [facility] [address] [id number] [place] [address] Jun, [facility] [address] [id number] [place] [address] Jun, [facility] [address] [id number] [place] [address] Jun, [facility] [address] [id number] [place] [address] Jun, [facility] [address] [id number] [place] [address] Jun, [facility] [address] [id number] [place] [address] Jun, [facility] [address] [place] [id number] [place] [address] Jun, [facility] [address] [id number] [place] [address] Jun, [facility] [address] [id number] [place] [address] May, [facility] [address] [id number] [place] [address] May, [facility] [address] [id number] [place] [address] May, [facility] [address] [id number] [place] [address] May, [facility] [address] [id number] [place] [address] Apr, [facility] [address] [id number] [place] [address] Apr, [facility] [address] [id number] [place] [address] Apr, [facility] [address] [id number] [place] [address] Apr, [facility] [address] [facility] [id number] [place] [address] Apr, [facility] [address] [facility] [id number] [place] [address] Apr, [facility] [address] [id number] [place] [address] 29 Feb, 2013 [facility] [address] [id number] [place] [address] 29 Feb, 2013 [facility] [address] [id number] [place] [address] Feb, 2013 [facility] [address] [id number] [place] [address] Feb, 2013 [facility] [address] [id number] [place] [address] Feb, 2013 [facility] [address] [id number] [place] [address] Feb, 2013 [facility] [address] [id number] [place] [address] 25 Feb, 2013 [facility] [address] [id number] [place] [address] 25 Feb, 2013 [facility] [address] [id number] [place] [address] 23 Feb, 2013 [facility] [address] [id number] [place] [address] 23 Feb, 2013 [facility] [address] [id number] [place] [address] 22 Feb, 2013 [facility] [address] [id number] [place] [address] 22 Feb, 2013 [facility] [address] [id number] [place] [address] 19 Feb, 2013 [facility] [address] [id number] [place] [address] 19 Feb, 2013 [facility] [address] [id number] [facility] [place] [address] 12 Feb, 2013 [facility] [address] [id number] [facility] [place] [address] Feb, [facility] [address] [facility] [id number] [place] [address] Feb, [facility] [address] [id number] [place] [address] Feb, [facility] [address] [facility] [id number] [place] [address] Feb, [facility] [address] [id number] [place] [address] Feb, [facility] [address] [id number] [place] [address] Jan, [facility] [address] [id number] [place] [address] Jan, [facility] [address] [id number] [place] [address] Jan, [facility] [address] [id number] [place] [address] Jan, [facility] [address] [id number] [place] [address] Jan, [facility] [address] [id number] [place] [address] Jan, [facility] [address] [id number] [place] [address] Jan, [facility] [address] [id number] [place] [address] Jan, [facility] [address] [id number] [place] [address] Dec, [facility] [address] [id number] [place] [address] Dec, [facility] [address] [id number] [place] [address] Dec, [facility] [address] [id number] [place] [address] Dec, [facility] [address] [facility] [id number] [facility] [place] [address] Dec, [facility] [address] [facility] [id number] [place] [address] Dec, [facility] [address] [facility] [id number] [facility] [place] [address] Dec, [facility] [address] [facility] [id number] [facility] [place] [address] Dec, [facility] [address] [id number] [place] [address] Dec, [facility] [address] [id number] [place] [address] Dec, [facility] [address] [id number] [place] [address] Dec, [facility] [address] [facility] [id number] [place] [address] Dec, [facility] [address] [id number] [place] [address] Nov, [facility] [address] [id number] [place] [address] Nov, [facility] [address] [id number] [place] [address] Nov, [facility] [address] [facility] [id number] [place] [address] Nov, [facility] [address] [id number] [place] [address] Nov, [facility] [address] [facility] [id number] [place] [address] Nov, [facility] [address] [id number] [place] [address] 16 Nov, 2013 [facility] [address] [id number] [facility] [place] [address] Nov, [facility] [address] [facility] [id number] [facility] [place] [address] Nov, [facility] [address] [facility] [id number] [place] [address] Nov, [facility] [address] [id number] [place] [address] October, [facility] [address] [id number] [place] [address] October, [facility] [address] [facility] [id number] [facility] [place] [address] October, [facility] [address] [id number] [place] [address] October, [facility] [address] [id number] [place] [address] October, [facility] [address] [id number] [place] [address] October, [facility] [address] [id number] [place] [address] Sep, [facility] [address] [id number] [place] [address] Sep, [facility] [address] [id number] [place] [address] Sep, [facility] [address] [id number] [place] [address] Sep, [facility] [address] [facility] [id number] [place] [address] Sep, [facility] [address] [id number] [place] [address] Sep, [facility] [address] [id number] [place] [address] Aug, [facility] [address] [id number] [place] [address] Aug, [facility] [address] [place] [id number] [place] [address] Aug, [facility] [address] [place] [id number] [place] [address] Aug, [facility] [address] [place] [id number] [place] [address] Aug, [facility] [address] [place] [id number] [place] [address] Jun, [facility] [address] [address] Jun, [facility] [address] [address] Jun, [facility] [address] [address] Jun, [facility] [address] [address] Jun, [facility] [address] [place] [id number] [place] [address] Jun, [facility] [address] [place] [id number] [place] [address] Jun, [facility] [address] [address] Mar, [facility] [address] [place] [id number] [place] [address] Mar, IMMUNIZATIONS No Known Immunizations SOCIAL HISTORY Never Assessed REASON FOR VISIT control consult- pt would like the pill (sharobel 0.3)- THANG Viramontes PLAN OF CARE Activity Details Follow Up 4-6 wk Reason:wt loss VITAL SIGNS Height 65 in 2018-09-08 Weight 258.9 lbs 2018-09-08 Temperature 97.8 degrees Fahrenheit 2018-09-08 Heart Rate 78 bpm 2018-09-08 Respiratory Rate 18 2018-09-08 BMI 43.08 kg/m2 2018-09-08 Blood pressure systolic 128 mmHg 2018-09-08 Blood pressure diastolic 78 mmHg 2018-09-08 MEDICATIONS Medication Instructions Dosage Frequency Start Date End Date Duration S tatus Cinthia 0.35 MG Orally Once a day 1 tablet 24h 84 days Active Pantoprazole Sodium 40 MG Orally Once a day 1 tablet 24h 30 day(s) Active Colace 100 MG Orally 2 times a day prn 1 capsule as needed Active RESULTS No Results PROCEDURES Procedure Date Ordered Result Body Site VENIPUNCT, ROUTINE* September 08, 2018 [facility] September 08, 2018 URINE TEST September 08, 2018 INSTRUCTIONS MEDICATIONS ADMINISTERED No Known Medications MEDICAL [...]
--- OUTSIDE RECORDS SUMMARY | 2019-08-12 20:13 | XMS REPORT ---
Author Author Bridgett Nelson Doctor Organization [facility] Address Unknown Phone Unavailable Care Team Providers Care Prop Sawyer Name Role Phone Migration, Doctor Unavailable Unavailable PROBLEMS Type Condition ICD9-CM Code [id number] Code Onset Dates Condition S tatus SNOMED Code Problem Migraine headache G43.909 Active 37 127118 Problem Mixed hyperlipidemia E78.2 Active [id number] ALLERGIES No Information ENCOUNTERS Encounter Location Date Diagnosis [place] [address] [address] Apr, [facility] [address] [address] Feb, Mixed hyperlipidemia E78.2 ; Palpitation s R00.2 and Abnormal thyroid blood test R94.6 [facility] [address] [address] Dec, [facility] [address] [address] Dec, [facility] [address] [address] Nov, Exercise counseling Z71.82 [facility] [address] [facility] [id number] [address] [address] Nov, Impetigo L01.00 and Morbid o besity E66.01 [facility] [address] [address] Nov, Exercise counseling Z71.82 [facility] [address] [address] October, Exercise counseling Z71.82 [place] [address] [address] October, Exercise counseling Z71.82 [facility] [address] [address] Sep, Mixed hyperlipidemia E78.2 ; Weight loss counseling, encounter for Z71.3 ; 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 and Morbid obesity E66.01 [place] [address] [address] Sep, Exercise counseling Z71.82 [place] [address] [address] Sep, Exercise counseling Z71.82 [place] [address] [address] Sep, Exercise counseling Z71.[address] [address] Sep, Exercise counseling Z71.82 [place] [address] [address] Aug, Screening for diabetes mellitus Z13.[address] [address] Aug, Screening for diabetes mellitus Z13.[address] [address] Aug, Exercise counseling Z71.[address] [address] Aug, Encounter for initial prescription of co ntraceptive pills Z30.011 ; Contraception management Z30.9 ; Contraceptive education Z30.09 ; Mixed hyperlipidemia E78.2 ; Weight loss counseling, encounter for Z71.3 ; Screening for diabetes mellitus Z13.1 ; Screening for thyroid disorder Z13.29 ; History of anemia Z86.2 and Morbid obesity E66.01 [facility] [address] [facility] [id number] [address] [place] [address] October, Seasonal allergic rhinitis, unspecified trigger J30.2 and BMI 40.0-44.9, adult Z68.[address] [address] Sep, Pelvic pain R10.2 ; Chronic GERD K21.9 a nd BMI 40.0-44.9, adult Z68.41 [place] [address] [address] Jul, [facility] [place] [address] [facility] [id number] [address] [place] [address] Apr, Sore throat J02.9 ; Acute re current streptococcal tonsillitis J03.01 and BMI 40.0-44.9, adult Z68.41 [facility] [address] [id number] [address] [place] [address] Mar, Sore throat J02.9 and Acute non-recurrent streptococcal tonsillitis J03.00 [place] [address] [address] Feb, [facility] [id number] [place] [id number] Jan, Anxiety and depression F41.[address] [place] [id number] [place] [id number] Dec, [address] [address] Nov, [address] [address] Jun, Normal in multigravida Z34.80 and First trimester Z33.[address] [address] Jun, 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 and Glass Mechanic 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 ear H92.[address] [address] May, [facility] [place] [address] [id number] [address] [place] [address] May, Late menses N91.0 and Acute suppurative otitis media of left ear without spontaneous rupture of tympanic membrane, recurrence not specified H66.002 [place] [address] [address] May, [place] [address] [address] Apr, [facility] [address] [place] [id number] [address] [place] [address] Apr, Vaginal discharge N89.8 and Vaginal yeast infection B37.3 [place] [address] [address] Mar, [place] [address] [address] Feb, [place] [address] [address] Feb, [place] [address] [address] 15 Feb, 2016 Abnormal cholesterol test E78.9 [place] [address] [address] 14 Feb, 2016 History of UTI Z87.440 ; Mixed hyperlipi demia E78.2 and Abnormal thyroid blood test R94.6 [facility] [address] [place] [address] Jan, [place] [address] [address] Jan, [place] [address] [address] Jan, Chest pain, unspecified type R07.9 ; Pal pitations R00.2 ; Hyperlipidemia, unspecified hyperlipidemia type E78.5 and Dyspnea, unspecified type R06.00 [place] [address] [address] Jan, [place] [address] [address] Dec, [facility] [address] [place] [id number] [address] [place] [address] Dec, Upper respiratory tract infe ction, unspecified type J06.9 [place] [address] [place] [id number] Dec, Major depressive disorder, single episod e, unspecified F32.9 and Panic attacks F41.0 [place] [address] [address] Nov, History of anemia Z86.2 ; Abnormal thyro id blood test R94.6 ; Mixed hyperlipidemia E78.2 ; Migraine headache G43.909 and Acute maxillary sinusitis, recurrence not specified J01.00 [place] [address] [address] Nov, 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 and Chondromalacia patellae of right knee M22.41 [place] [address] [address] Nov, Abnormal thyroid blood test R94.6 and Ab normal cholesterol test E78.9 [place] [address] [address] October, History of palpitations Z87.898 ; Pain i n left knee M25.562 and Pain in right knee M25.561 [place] [address] [address] Sep, Pelvic pain in female 625.9 [place] [address] [address] Sep, Pelvic pain R10.2 ; Galactorrhea in fema le N64.3 ; Knee pain, left M25.562 and Knee pain, right M25.561 [facility] [address] [facility] [id number] [address] [place] [address] Aug, Cough R05 and Laceration of thumb, left S61.012A [place] [address] [address] Aug, Cough R05 ; History of UTI Z87.440 and C ontraception management Z30.9 [place] [address] [place] [id number] 02 Aug, 2015 History of UTI Z87.440 and Irregular men ses N92.6 [place] [address] [address] 18 Jul, 2015 Leukopenia D72.819 and Neutropenia D70.9 [place] [address] [address] 18 Jul, 2015 Leukopenia D72.819 and Neutropenia D70.9 [place] [address] [address] 17 Jul, 2015 Migraine headache G43.909 ; Heart burn R 12 and History of long-term use of multiple prescription drugs Z92.29 [facility] [address] [facility] [id number] [address] [place] [address] 15 Jul, 2015 Vaginal discharge N89.8 ; Hi gh risk sexual behavior Z72.51 ; Unprotected sex Z72.51 ; Acute upper respiratory infection, unspecified J06.9 and Other viral agents as the cause of diseases classified elsewhere B97.89 [place] [address] [address] 04 Jul, 2015 Sore throat J02.9 ; Sinusitis J32.9 and Fever R50.9 [place] [address] [address] Jun, Migraine headache G43.909 and Heart burn R12 [place] [address] [address] Jun, [place] [id number] Jun, [address] [address] Jun, Evaluation regarding contraception optio ns Z30.09 ; Encounter for Depo-Provera contraception Z30.42 ; 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 269A [facility] [address] [place] [address] May, Sore throat J02.9 [place] [address] [address] 24 Feb, 2015 Pelvic pain in female 625.9 and Menorrha ciro 626.2 [place] [address] [address] Dec, Diarrhea 787.[address] [address] Dec, Pelvic pain in female 625.9 and Ganglion cyst of wrist 727.41 [place] [address] [address] Nov, Eczema 692.9 [place] [address] [address] Nov, [place] [address] [address] Sep, [place] [address] [address] Sep, [place] [address] [address] Jul, [place] [address] [address] Jul, [facility] [address] [id number] [place] [address] Jun, [facility] [address] [id number] [place] [address] Jun, [facility] [address] [id number] [place] [address] Jun, [facility] [address] [id number] [place] [address] Jun, [facility] [address] [id number] [place] [address] Jun, [facility] [address] [id number] [place] [address] Jun, [facility] [address] [id number] [place] [address] Jun, [facility] [address] [place] [id number] [place] [address] Jun, [facility] [address] [id number] [place] [address] May, [facility] [address] [id number] [place] [address] May, [facility] [address] [id number] [place] [address] May, [facility] [address] [id number] [place] [address] May, [facility] [address] [id number] [place] [address] Apr, [facility] [address] [id number] [place] [address] Apr, [facility] [address] [id number] [place] [address] Apr, [facility] [address] [id number] [place] [address] Apr, [facility] [address] [id number] [place] [address] Apr, [facility] [address] [facility] [id number] [place] [address] Apr, [facility] [address] [facility] [id number] [place] [address] 29 Feb, 2013 [facility] [address] [id number] [place] [address] 29 Sep, 2013 [facility] [address] [facility] [id number] [place] [address] Feb, 2013 [facility] [address] [facility] [id number] [facility] [place] [address] Feb, 2013 [facility] [address] [id number] [place] [address] 26 Feb, 2013 [facility] [address] [id number] [place] [address] Feb, 2013 [facility] [address] [id number] [place] [address] 25 Feb, 2013 [facility] [address] [facility] [id number] [place] [address] 25 Feb, 2013 [facility] [address] [id number] [place] [address] 23 Feb, 2013 [facility] [address] [id number] [place] [address] 23 Feb, 2013 [facility] [address] [id number] [place] [address] 22 Feb, 2013 [facility] [address] [facility] [id number] [place] [address] 22 Feb, 2013 [facility] [address] [id number] [place] [address] 19 Feb, 2013 [facility] [address] [facility] [id number] [place] [address] 19 Feb, 2013 [facility] [address] [id number] [place] [address] 12 Feb, 2013 [facility] [address] [id number] [facility] [place] [place] [address] Feb, 2013 [facility] [address] [id number] [facility] [place] [address] Feb, [facility] [address] [facility] [id number] [place] [address] Feb, [facility] [address] [id number] [place] [address] Feb, [facility] [address] [facility] [id number] [facility] [place] [address] Feb, [facility] [address] [facility] [id number] [place] [address] Jan, [facility] [address] [id number] [place] [address] Jan, [facility] [address] [id number] [place] [address] Jan, [facility] [address] [id number] [place] [address] Jan, [facility] [address] [id number] [place] [address] Jan, [facility] [address] [id number] [place] [address] Jan, [facility] [address] [id number] [place] [address] Jan, [facility] [address] [id number] [place] [address] Jan, [facility] [address] [id number] [place] [address] Dec, [facility] [address] [id number] [place] [address] Dec, [facility] [address] [id number] [place] [address] Dec, [facility] [address] [id number] [place] [address] Dec, [facility] [address] [facility] [id number] [place] [address] Dec, [facility] [address] [facility] [id number] [place] [address] Dec, [facility] [address] [facility] [id number] [place] [address] Dec, 2013 [facility] [address] [id number] [place] [address] Dec, 2013 [facility] [address] [facility] [id number] [place] [address] Dec, [facility] [address] [id number] [place] [address] Dec, [facility] [address] [id number] [place] [address] Dec, [facility] [address] [id number] [place] [address] Dec, [facility] [address] [id number] [place] [address] Nov, [facility] [address] [id number] [place] [address] Nov, [facility] [address] [id number] [place] [address] Nov, [facility] [address] [id number] [place] [address] Nov, [facility] [address] [id number] [place] [address] Nov, [facility] [address] [facility] [id number] [place] [address] Nov, [facility] [address] [id number] [place] [address] Nov, [facility] [address] [id number] [place] [address] Nov, [facility] [address] [id number] [place] [address] Nov, [facility] [address] [facility] [id number] [facility] [place] [address] Nov, [facility] [address] [facility] [id number] [facility] [place] [place] [address] October, [facility] [address] [id number] [facility] [place] [address] October, [facility] [address] [facility] [id number] [facility] [place] [address] October, [facility] [address] [facility] [id number] [facility] [place] [address] October, [facility] [address] [id number] [facility] [place] [address] October, [facility] [address] [id number] [facility] [place] [address] October, [facility] [address] [id number] [facility] [place] [address] Sep, [facility] [address] [facility] [id number] [facility] [place] [address] Sep, [facility] [address] [id number] [facility] [place] [address] Sep, [facility] [address] [id number] [place] [address] Sep, [facility] [address] [id number] [facility] [place] [address] Sep, [facility] [address] [facility] [id number] [facility] [place] [address] Sep, [facility] [address] [id number] [place] [address] Aug, [facility] [address] [facility] [id number] [facility] [place] [address] Aug, [facility] [address] [id number] [facility] [place] [address] Aug, [facility] [address] [id number] [place] [address] Aug, [facility] [address] [id number] [place] [address] Aug, [facility] [address] [id number] [place] [address] Jun, [facility] [address] [place] [id number] [place] [address] Jun, [facility] [address] [place] [id number] [place] [address] Jun, [facility] [address] [place] [id number] [place] [address] Jun, [facility] [address] [place] [id number] [place] [address] Jun, [facility] [address] [place] [id number] [place] [address] Jun, [facility] [address] [place] [id number] [place] [address] Jun, [facility] [address] [place] [id number] [place] [address] Mar, [facility] [address] [place] [id number] [place] [address] Mar, IMMUNIZATIONS No Known Immunizations SOCIAL HISTORY [...]
--- OUTSIDE RECORDS SUMMARY | 2019-08-12 20:13 | XMS REPORT ---
Author Author Bridgett TORRES [facility] Address [address] [place] [address] Care Team Providers Care Fire Range Technician Name Role Phone ESTEFANIA TORRES Unavailable PROBLEMS Type Condition ICD9-CM Code XAJ06-SI Code Onset Dates Condition S tatus SNOMED Code Problem Migraine headache G43.909 Active 37 150579 Problem Mixed hyperlipidemia E78.2 Active [id number] ALLERGIES No Information ENCOUNTERS Encounter Location Date Diagnosis [place] [address] [address] Apr, [address] [address] Feb, Mixed hyperlipidemia E78.2 ; Palpitation s R00.2 and Abnormal thyroid blood test R94.6 [facility] [address] [address] Dec, [place] [address] [address] Dec, [facility] [address] [address] Nov, Exercise counseling Z71.82 [facility] [address] [facility] [id number] [place], [place] [address] Nov, Impetigo L01.00 and Morbid o besity E66.01 [facility] [address] [address] Nov, Exercise counseling Z71.82 [facility] [address] [address] October, Exercise counseling Z71.82 [place] [address] [address] October, Exercise counseling Z71.82 [place] [address] [address] Sep, Mixed hyperlipidemia E78.2 ; Weight loss counseling, encounter for Z71.3 ; 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 and Morbid obesity E66.01 [place] [address] [address] Sep, Exercise counseling Z71.82 [place] [address] [address] Sep, Exercise counseling Z71.82 [place] [address] [address] Sep, Exercise counseling Z71.82 [place] [address] [address] Sep, Exercise counseling Z71.82 [place] [address] [address] Aug, Screening for diabetes mellitus Z13.1 [place] [address] [address] Aug, Screening for diabetes mellitus Z13.1 [place] [address] [address] Aug, Exercise counseling Z71.82 [place] [address] [address] Aug, Encounter for initial prescription of co ntraceptive pills Z30.011 ; Contraception management Z30.9 ; Contraceptive education Z30.09 ; Mixed hyperlipidemia E78.2 ; Weight loss counseling, encounter for Z71.3 ; Screening for diabetes mellitus Z13.1 ; Screening for thyroid disorder Z13.29 ; History of anemia Z86.2 and Morbid obesity E66.01 [facility] [address] [facility] [id number] [address] [address] October, Seasonal allergic rhinitis, unspecified trigger J30.2 and BMI 40.0-44.9, adult Z68.41 [place] [address] [place] [id number] [place] [address] 04 Sep, 2017 Pelvic pain R10.2 ; Chronic GERD K21.9 a nd BMI 40.0-44.9, adult Z68.41 [place] [address] [place] [id number] [place] [address] 20 Jul, 2017 [facility] [place] [id number] [address] [place] [address] 07 Apr, 2017 Sore throat J02.9 ; Acute re current streptococcal tonsillitis J03.01 and BMI 40.0-44.9, adult Z68.41 [facility] [place] [id number] [address] [place] [address] 09 Mar, 2017 Sore throat J02.9 and Acute non-recurrent streptococcal tonsillitis J03.00 [place] [address] [address] 05 Feb, [address] [place] [id number] [id number] [place] [id number] Jan, Anxiety and depression F41.[address] [place] [address] [id number] [id number] Dec, [place] [address] [address] Nov, [address] [address] Jun, Normal in multigravida Z34.80 and First trimester Z33.[address] [address] Jun, 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 and 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 H92.[address] [address] May, [facility] [address] [id number] [address] [place] [address] May, Late menses N91.0 and Acute suppurative otitis media of left ear without spontaneous rupture of tympanic membrane, recurrence not specified H66.002 [place] [address] [address] May, [facility] [address] [address] Apr, [facility] [address] [facility] [id number] [address] [address] Apr, Vaginal discharge N89.8 and Vaginal yeast infection B37.3 [place] [address] [address] Mar, [place] [address] [address] Feb, [place] [address] [address] Feb, [place] [address] [address] 15 Feb, 2016 Abnormal cholesterol test E78.9 [place] [address] [address] 14 Feb, 2016 History of UTI Z87.440 ; Mixed hyperlipi demia E78.2 and Abnormal thyroid blood test R94.6 [facility] [address] [place] [address] Jan, [place] [address] [address] Jan, [place] [address] [address] Jan, Chest pain, unspecified type R07.9 ; Pal pitations R00.2 ; Hyperlipidemia, unspecified hyperlipidemia type E78.5 and Dyspnea, unspecified type R06.00 [place] [address] [address] Jan, [place] [address] [address] Dec, [facility] [address] [facility] [id number] [place], [place] [address] Dec, Upper respiratory tract infe ction, unspecified type J06.9 [place] [address] [address] Dec, Major depressive disorder, single episod e, unspecified F32.9 and Panic attacks F41.0 [place] [address] [address] Nov, History of anemia Z86.2 ; Abnormal thyro id blood test R94.6 ; Mixed hyperlipidemia E78.2 ; Migraine headache G43.909 and Acute maxillary sinusitis, recurrence not specified J01.00 [place] [address] [address] Nov, 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 and Chondromalacia patellae of right knee M22.41 [place] [address] [address] Nov, Abnormal thyroid blood test R94.6 and Ab normal cholesterol test E78.9 [place] [address] [address] October, History of palpitations Z87.898 ; Pain i n left knee M25.562 and Pain in right knee M25.561 [place] [address] [address] Sep, Pelvic pain in female 625.9 [place] [address] [address] Sep, Pelvic pain R10.2 ; Galactorrhea in fema le N64.3 ; Knee pain, left M25.562 and Knee pain, right M25.561 [facility] [address] [facility] [id number] [place] [address] Aug, Cough R05 and Laceration of thumb, left S61.012A [place] [address] [address] 09 Aug, 2015 Cough R05 ; History of UTI Z87.440 and C ontraception management Z30.9 [place] [address] [place] [id number] 02 Aug, 2015 History of UTI Z87.440 and Irregular men ses N92.6 [place] [address] [address] 18 Jul, 2015 Leukopenia D72.819 and Neutropenia D70.9 [place] [address] [address] 18 Jul, 2015 Leukopenia D72.819 and Neutropenia D70.9 [place] [address] [address] 17 Jul, 2015 Migraine headache G43.909 ; Heart burn R 12 and History of long-term use of multiple prescription drugs Z92.29 [facility] [address] [facility] [id number] [address] [address] 15 Jul, 2015 Vaginal discharge N89.8 ; Hi gh risk sexual behavior Z72.51 ; Unprotected sex Z72.51 ; Acute upper respiratory infection, unspecified J06.9 and Other viral agents as the cause of diseases classified elsewhere B97.[address] [address] 04 Jul, 2015 Sore throat J02.9 ; Sinusitis J32.9 and Fever R50.9 [place] [address] [address] Jun, Migraine headache G43.909 and Heart burn R12 [address] [address] Jun, [address] [address] Jun, [address] [address] Jun, Evaluation regarding contraception optio ns Z30.09 ; Encounter for Depo-Provera contraception Z30.42 ; Encntr for nurse obgyn exam (general) (routine) w/o abn findings Z01.419 ; Pelvic pain R10.2 ; Migraine headache G43.909 and Vaginal discharge N89.8 [place] [address] [address] 10 May, 2015 Overweight E66.3 ; Encounter for immuniz ation Z23 ; Pain of right thumb M79.644 and Headache R51 [facility] [address] [place] [id number] [address] [place] [address] May, Insect bite of shoulder S40. 269A [facility] [id number] [place] [address] May, Sore throat J02.[address] [address] Feb, Pelvic pain in female 625.9 and Menorrha ciro 626.[address] [address] Dec, Diarrhea 787.[address] [address] Dec, Pelvic pain in female 625.9 and Ganglion cyst of wrist 727.[address] [address] Nov, Eczema 692.[address] [address] Nov, [address] [address] 14 Sep, [address] [address] Sep, [address] [address] Jul, [facility] [address] [id number] [place] [address] Jul, [facility] [address] [id number] [place] [address] Jun, [facility] [address] [id number] [place] [address] Jun, [facility] [address] [id number] [place] [address] Jun, [facility] [address] [id number] [place] [address] Jun, [facility] [address] [id number] [place] [address] Jun, [facility] [address] [id number] [place] [address] Jun, [facility] [address] [place] [id number] [place] [address] Jun, [facility] [address] [id number] [place] [address] Jun, [facility] [address] [id number] [place] [address] May, [facility] [address] [id number] [place] [address] May, [facility] [address] [id number] [place] [address] May, [facility] [address] [id number] [place] [address] May, [facility] [address] [id number] [place] [address] Apr, [facility] [address] [id number] [place] [address] Apr, [facility] [address] [id number] [place] [address] Apr, [facility] [address] [id number] [place] [address] Apr, [facility] [address] [id number] [place] [address] Apr, [facility] [address] [facility] [id number] [place] [address] Apr, [facility] [address] [id number] [place] [address] 29 Feb, 2013 [facility] [address] [id number] [place] [address] 29 Feb, 2013 [facility] [address] [facility] [id number] [place] [address] Feb, 2013 [facility] [address] [id number] [place] [address] Feb, 2013 [facility] [address] [id number] [place] [address] Feb, 2013 [facility] [address] [id number] [place] [address] Feb, 2013 [facility] [address] [id number] [place] [address] 25 Feb, 2013 [facility] [address] [id number] [place] [address] 25 Feb, 2013 [facility] [address] [id number] [place] [address] 23 Feb, 2013 [facility] [address] [id number] [place] [address] 23 Feb, 2013 [facility] [address] [facility] [id number] [place] [address] 22 Feb, 2013 [facility] [address] [id number] [place] [address] 22 Feb, 2013 [facility] [address] [id number] [place] [address] 19 Feb, 2013 [facility] [address] [id number] [place] [address] 19 Feb, 2013 [facility] [address] [id number] [place] [address] 12 Feb, 2013 [facility] [address] [id number] [facility] [place] [address] Feb, 2013 [facility] [address] [facility] [id number] [place] [address] Feb, [facility] [address] [id number] [place] [address] Feb, [facility] [address] [facility] [id number] [place] [address] Feb, [facility] [address] [id number] [facility] [place] [address] Feb, [facility] [address] [id number] [place] [address] Jan, [facility] [address] [id number] [place] [address] Jan, [facility] [address] [id number] [place] [address] Jan, [facility] [address] [id number] [place] [address] Jan, [facility] [address] [id number] [place] [address] Jan, [facility] [address] [id number] [place] [address] Jan, [facility] [address] [id number] [place] [address] Jan, [facility] [address] [id number] [place] [address] Jan, [facility] [address] [id number] [place] [address] Dec, [facility] [address] [id number] [place] [address] Dec, [facility] [address] [id number] [place] [address] Dec, [facility] [address] [id number] [place] [address] Dec, [facility] [address] [facility] [id number] [place] [address] Dec, [facility] [address] [facility] [id number] [place] [address] Dec, [facility] [address] [id number] [place] [address] Dec, [facility] [address] [facility] [id number] [place] [address] Dec, [facility] [address] [id number] [place] [address] Dec, [facility] [address] [id number] [place] [address] Dec, [facility] [address] [id number] [place] [address] Dec, [facility] [address] [id number] [place] [address] Dec, [facility] [address] [id number] [place] [address] Nov, [facility] [address] [id number] [place] [address] Nov, [facility] [address] [id number] [place] [address] Nov, [facility] [address] [id number] [place] [address] Nov, [facility] [address] [facility] [id number] [place] [address] Nov, [facility] [address] [id number] [place] [address] Nov, [facility] [address] [id number] [place] [address] 16 Nov, 2013 [facility] [address] [id number] [place] [address] Nov, [facility] [address] [id number] [facility] [place] [address] Nov, [facility] [address] [facility] [id number] [facility] [place] [address] Nov, [facility] [address] [facility] [id number] [place] [address] October, [facility] [address] [id number] [place] [address] October, [facility] [address] [facility] [id number] [facility] [place] [address] October, [facility] [address] [id number] [place] [address] October, [facility] [address] [id number] [place] [address] October, [facility] [address] [id number] [place] [address] October, [facility] [address] [facility] [id number] [place] [address] Sep, [facility] [address] [id number] [facility] [place] [address] Sep, [facility] [address] [id number] [place] [address] Sep, [facility] [address] [id number] [place] [address] Sep, [facility] [address] [facility] [id number] [place] [address] Sep, [facility] [address] [id number] [place] [address] Sep, [facility] [address] [facility] [id number] [place] [address] Aug, [facility] [address] [id number] [place] [address] Aug, [facility] [address] [id number] [place] [address] Aug, [facility] [address] [id number] [place] [address] Aug, [facility] [address] [id number] [place] [address] Aug, [facility] [address] [place] [id number] [place] [address] Jun, [facility] [address] [place] [id number] [place] [address] Jun, [facility] [address] [id number] [place] [address] Jun, [facility] [address] [place] [id number] [place] [address] Jun, [facility] [address] [place] [id number] [place] [address] Jun, [facility] [address] [place] [id number] [place] [address] Jun, [facility] [address] [id number] [place] [address] Jun, [facility] [address] [place] [id number] [place] [address] Mar, [facility] [address] [place] [id number] [place] [address] Mar, IMMUNIZATIONS No Known Immunizations SOCIAL HISTORY [...]
--- OUTSIDE RECORDS SUMMARY | 2019-08-12 20:13 | XMS REPORT ---
Author Author Bridgett MAO Organization [facility] Address [address] [place] [address] Care Team Providers Care Inside [employer]er Name Role Phone KIARA MAO Unavailable PROBLEMS Type Condition ICD9-CM Code FIU77-TH Code Onset Dates Condition S tatus SNOMED Code Problem Migraine headache G43.909 Active 37 780443 Problem Mixed hyperlipidemia E78.2 Active [id number] ALLERGIES No Information ENCOUNTERS Encounter Location Date Diagnosis [facility] [address] [address] Apr, [facility] [address] [address] Feb, Mixed hyperlipidemia E78.2 ; Palpitation s R00.2 and Abnormal thyroid blood test R94.6 [facility] [address] [address] Dec, [facility] [address] [address] Dec, [facility] [address] [address] Nov, Exercise counseling Z71.82 [facility] [address] 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 and Morbid obesity E66.01 [place] [address] [address] Sep, Exercise counseling Z71.82 [place] [address] [address] Sep, Exercise counseling Z71.82 [place] [address] [address] Sep, Exercise counseling Z71.82 [place] [address] [address] Sep, Exercise counseling Z71.82 [place] [address] [address] Aug, Screening for diabetes mellitus Z13.1 [place] [address] [address] Aug, Screening for diabetes mellitus Z13.1 [place] [address] [address] Aug, Exercise counseling Z71.82 [place] [address] [address] Aug, Encounter for initial prescription of co ntraceptive pills Z30.011 ; Contraception management Z30.9 ; Contraceptive education Z30.09 ; Mixed hyperlipidemia E78.2 ; Weight loss counseling, encounter for Z71.3 ; Screening for diabetes mellitus Z13.1 ; Screening for thyroid disorder Z13.29 ; History of anemia Z86.2 and Morbid obesity E66.01 [facility] [address] [facility] [id number] [address] [address] October, Seasonal allergic rhinitis, unspecified trigger J30.2 and BMI 40.0-44.9, adult Z68.41 [place] [address] [address] 04 Sep, 2017 Pelvic pain R10.2 ; Chronic GERD K21.9 a nd BMI 40.0-44.9, adult Z68.41 [place] [address] [address] 20 Jul, 2017 [facility] [place] [id number] [address] [place] [address] Apr, Sore throat J02.9 ; Acute re current streptococcal tonsillitis J03.01 and BMI 40.0-44.9, adult Z68.41 [facility] [place] [id number] [address] [place] [address] 09 Mar, 2017 Sore throat J02.9 and Acute non-recurrent streptococcal tonsillitis J03.[address] [address] 05 Feb, [address] [place] [id number] [id number] [place] [id number] Jan, Anxiety and depression F41.[address] [place] [address] [id number] [place] [id number] Dec, [address] [address] Nov, [address] [address] Jun, Normal in multigravida Z34.80 and First trimester Z33.[address] [address] Jun, 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 [id number] [address] [address] Apr, Vaginal discharge N89.8 and Vaginal yeast infection B37.3 [place] [address] [address] Mar, [place] [address] [address] Feb, [place] [address] [address] Feb, [place] [address] [address] 15 Feb, 2016 Abnormal cholesterol test E78.9 [place] [address] [address] 14 Feb, 2016 History of UTI Z87.440 ; Mixed hyperlipi demia E78.2 and Abnormal thyroid blood test R94.6 [facility] [address] [place] [address] Jan, [place] [address] [address] Jan, [place] [address] [address] Jan, Chest pain, unspecified type R07.9 ; Pal pitations R00.2 ; Hyperlipidemia, unspecified hyperlipidemia type E78.5 and Dyspnea, unspecified type R06.00 [place] [address] [address] Jan, [place] [address] [address] Dec, [facility] [address] [place] [id number] [address] [place] [address] Dec, Upper respiratory tract infe ction, unspecified type J06.9 [place] [address] [address] Dec, Major depressive disorder, single episod e, unspecified F32.9 and Panic attacks F41.0 [place] [address] [address] Nov, History of anemia Z86.2 ; Abnormal thyro id blood test R94.6 ; Mixed hyperlipidemia E78.2 ; Migraine headache G43.909 and Acute maxillary sinusitis, recurrence not specified J01.00 [place] [address] [address] Nov, 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 and Chondromalacia patellae of right knee M22.41 [place] [address] [address] Nov, Abnormal thyroid blood test R94.6 and Ab normal cholesterol test E78.9 [place] [address] [address] October, History of palpitations Z87.898 ; Pain i n left knee M25.562 and Pain in right knee M25.561 [place] [address] [address] Sep, Pelvic pain in female 625.9 [place] [address] [address] Sep, Pelvic pain R10.2 ; Galactorrhea in fema le N64.3 ; Knee pain, left M25.562 and Knee pain, right M25.561 [facility] [address] [facility] [id number] [address] [address] Aug, Cough R05 and Laceration of thumb, left S61.012A [place] [address] [address] 09 Aug, 2015 Cough R05 ; History of UTI Z87.440 and C ontraception management Z30.9 [place] [address] [address] 02 Aug, 2015 History of UTI Z87.440 and Irregular men ses N92.6 [place] [address] [address] 18 Jul, 2015 Leukopenia D72.819 and Neutropenia D70.9 [place] [address] [address] 18 Jul, 2015 Leukopenia D72.819 and Neutropenia D70.9 [place] [address] [address] 17 Jul, 2015 Migraine headache G43.909 ; Heart burn R 12 and History of long-term use of multiple prescription drugs Z92.29 [facility] [address] [facility] [id number] [address] [address] 15 Jul, 2015 Vaginal discharge N89.8 ; Hi gh risk sexual behavior Z72.51 ; Unprotected sex Z72.51 ; Acute upper respiratory infection, unspecified J06.9 and Other viral agents as the cause of diseases classified elsewhere B97.[address] [address] 04 Jul, 2015 Sore throat J02.9 ; Sinusitis J32.9 and Fever R50.9 [place] [address] [address] Jun, Migraine headache G43.909 and Heart burn R12 [place] [address] [address] Jun, [place] [address] [address] Jun, [place] [address] [address] Jun, Evaluation regarding contraception optio ns Z30.09 ; Encounter for Depo-Provera contraception Z30.42 ; Encntr for press cutter exam (general) (routine) w/o abn findings Z01.419 ; Pelvic pain R10.2 ; Migraine headache G43.909 and Vaginal discharge N89.8 [place] [address] [address] 10 May, 2015 Overweight E66.3 ; Encounter for immuniz ation Z23 ; Pain of right thumb M79.644 and Headache R51 [facility] [address] [place] [id number] [place] [address] May, Insect bite of shoulder S40. 269A [facility] [id number] [place] [address] May, Sore throat J02.[address] [address] Feb, Pelvic pain in female 625.9 and Menorrha ciro 626.[address] [address] Dec, Diarrhea 787.[address] [address] Dec, Pelvic pain in female 625.9 and Ganglion cyst of wrist 727.[address] [address] Nov, Eczema 692.9 [place] [address] [address] Nov, [address] [address] 14 Sep, [address] [address] 13 Sep, [address] [address] Jul, [facility] [address] [id number] [place] [address] Jul, [facility] [address] [id number] [place] [address] Jun, [facility] [address] [id number] [place] [address] Jun, [facility] [address] [id number] [place] [address] Jun, [facility] [address] [id number] [place] [address] Jun, [facility] [address] [id number] [place] [address] Jun, [facility] [address] [id number] [place] [address] Jun, [facility] [address] [place] [id number] [place] [address] Jun, [facility] [address] [id number] [place] [address] Jun, [facility] [address] [id number] [place] [address] May, [facility] [address] [id number] [place] [address] May, [facility] [address] [id number] [place] [address] May, [facility] [address] [id number] [place] [address] May, [facility] [address] [id number] [place] [address] Apr, [facility] [address] [id number] [place] [address] Apr, [facility] [address] [id number] [place] [address] Apr, [facility] [address] [id number] [place] [address] Apr, [facility] [address] [facility] [id number] [place] [address] Apr, [facility] [address] [id number] [place] [address] Apr, [facility] [address] [id number] [place] [address] 29 Feb, 2013 [facility] [address] [id number] [place] [address] 29 Feb, 2013 [facility] [address] [id number] [place] [address] Feb, 2013 [facility] [address] [id number] [place] [address] Feb, 2013 [facility] [address] [id number] [place] [address] Feb, 2013 [facility] [address] [id number] [place] [address] Feb, 2013 [facility] [address] [id number] [place] [address] 25 Feb, 2013 [facility] [address] [id number] [place] [address] 25 Feb, 2013 [facility] [address] [id number] [place] [address] 23 Feb, 2013 [facility] [address] [id number] [place] [address] 23 Feb, 2013 [facility] [address] [id number] [place] [address] 22 Feb, 2013 [facility] [address] [id number] [place] [address] 22 Feb, 2013 [facility] [address] [id number] [place] [address] 19 Feb, 2013 [facility] [address] [id number] [place] [address] 19 Feb, 2013 [facility] [address] [id number] [place] [address] 12 Feb, 2013 [facility] [address] [id number] [place] [address] Feb, 2013 [facility] [address] [facility] [id number] [place] [address] Feb, 2013 [facility] [address] [id number] [place] [address] Feb, [facility] [address] [facility] [id number] [place] [address] Feb, [facility] [address] [id number] [place] [address] Feb, [facility] [address] [id number] [place] [address] Jan, [facility] [address] [id number] [place] [address] Jan, [facility] [address] [id number] [place] [address] Jan, [facility] [address] [id number] [place] [address] Jan, [facility] [address] [id number] [place] [address] Jan, [facility] [address] [id number] [place] [address] Jan, [facility] [address] [id number] [place] [address] Jan, [facility] [address] [id number] [place] [address] Jan, [facility] [address] [id number] [place] [address] Dec, [facility] [address] [id number] [place] [address] Dec, [facility] [address] [id number] [place] [address] Dec, [facility] [address] [facility] [id number] [place] [address] Dec, [facility] [address] [facility] [id number] [place] [address] Dec, [facility] [address] [facility] [id number] [place] [address] Dec, 2013 [facility] [address] [id number] [place] [address] Dec, [facility] [address] [facility] [id number] [place] [address] Dec, [facility] [address] [id number] [place] [address] Dec, [facility] [address] [id number] [place] [address] Dec, [facility] [address] [id number] [place] [address] Dec, [facility] [address] [id number] [place] [address] Dec, [facility] [address] [id number] [place] [address] Nov, [facility] [address] [id number] [place] [address] Nov, [facility] [address] [id number] [place] [address] Nov, [facility] [address] [id number] [place] [address] Nov, [facility] [address] [facility] [id number] [place] [address] Nov, [facility] [address] [id number] [place] [address] Nov, [facility] [address] [id number] [place] [address] 16 Nov, 2013 [facility] [address] [id number] [place] [address] Nov, [facility] [address] [facility] [id number] [place] [address] Nov, [facility] [address] [facility] [id number] [place] [address] Nov, [facility] [address] [id number] [place] [address] October, [facility] [address] [id number] [place] [address] October, [facility] [address] [facility] [id number] [place] [address] October, [facility] [address] [id number] [place] [address] October, [facility] [address] [id number] [place] [address] October, [facility] [address] [id number] [place] [address] October, [facility] [address] [id number] [place] [address] Sep, [facility] [address] [id number] [place] [address] Sep, [facility] [address] [id number] [place] [address] Sep, [facility] [address] [id number] [place] [address] Sep, [facility] [address] [id number] [place] [address] Sep, [facility] [address] [id number] [place] [address] Sep, [facility] [address] [id number] [place] [address] Aug, [facility] [address] [id number] [place] [address] Aug, [facility] [address] [id number] [place] [address] Aug, [facility] [address] [id number] [place] [address] Aug, [facility] [address] [place] [id number] [place] [address] Aug, [facility] [address] [place] [id number] [place] [address] Jun, [facility] [address] [place] [id number] [place] [address] Jun, [facility] [address] [place] [id number] [place] [address] Jun, [facility] [address] [place] [id number] [place] [address] Jun, [facility] [address] [place] [id number] [place] [address] Jun, [facility] [address] [place] [id number] [place] [address] Jun, [facility] [address] [place] [id number] [place] [address] Jun, [facility] [address] [place] [id number] [place] [address] Mar, [facility] [address] [place] [id number] [place] [address] Mar, IMMUNIZATIONS No Known Immunizations SOCIAL HISTORY [...] Surgical History cyct removal on LT 01/03 Surgical History cholecystectomy Hospitalization History Hospitalization for surgery only Hospitalization History childbirth
--- OUTSIDE RECORDS SUMMARY | 2019-08-12 20:13 | XMS REPORT ---
Author Author Bridgett TORRES [facility] Address [address] [place] [address] Care Team Providers Care Mammography Supervisor Name Role Phone ESTEFANIA TORRES Unavailable PROBLEMS Type Condition ICD9-CM Code OOW69-WU Code Onset Dates Condition S tatus SNOMED Code Problem Migraine headache G43.909 Active 37 [id number] Problem Mixed hyperlipidemia E78.2 Active [id number] ALLERGIES No Information ENCOUNTERS Encounter Location Date Diagnosis [place] [address] [address] Apr, [address] [address] Feb, Mixed hyperlipidemia E78.2 ; Palpitation s R00.2 and Abnormal thyroid blood test R94.6 [facility] [address] [address] Dec, [place] [address] [address] Dec, [facility] [address] [address] Nov, Exercise counseling Z71.82 [facility] [address] [facility] [id number] [address] [address] Nov, Impetigo L01.00 and Morbid o besity E66.01 [facility] [address] [address] Nov, Exercise counseling Z71.82 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 and Morbid obesity E66.01 [place] [address] [address] Sep, Exercise counseling Z71.82 [place] [address] [address] Sep, Exercise counseling Z71.82 [place] [address] [address] Sep, Exercise counseling Z71.82 [place] [address] [address] Sep, Exercise counseling Z71.82 [place] [address] [address] Aug, Screening for diabetes mellitus Z13.1 [place] [address] [address] Aug, Screening for diabetes mellitus Z13.1 [place] [address] [address] Aug, Exercise counseling Z71.82 [place] [address] [address] Aug, Encounter for initial prescription of co ntraceptive pills Z30.011 ; Contraception management Z30.9 ; Contraceptive education Z30.09 ; Mixed hyperlipidemia E78.2 ; Weight loss counseling, encounter for Z71.3 ; Screening for diabetes mellitus Z13.1 ; Screening for thyroid disorder Z13.29 ; History of anemia Z86.2 and Morbid obesity E66.01 [facility] [address] [facility] [id number] [address] [place] [address] October, Seasonal allergic rhinitis, unspecified trigger J30.2 and BMI 40.0-44.9, adult Z68.41 [place] [address] [place] [id number] [place] [address] 04 Sep, 2017 Pelvic pain R10.2 ; Chronic GERD K21.9 a nd BMI 40.0-44.9, adult Z68.41 [place] [address] [place] [id number] [place] [address] 20 Jul, 2017 [facility] [place] [id number] [address] [place] [address] 07 Apr, 2017 Sore throat J02.9 ; Acute re current streptococcal tonsillitis J03.01 and BMI 40.0-44.9, adult Z68.41 [facility] [place] [id number] [address] [place] [address] 09 Mar, 2017 Sore throat J02.9 and Acute non-recurrent streptococcal tonsillitis J03.00 [place] [address] [address] 05 Feb, [address] [place] [id number] [id number] [place] [id number] Jan, Anxiety and depression F41.[address] [place] [id number] [id number] [id number] Dec, [place] [address] [address] Nov, [address] [address] Jun, Normal in multigravida Z34.80 and First trimester Z33.[address] [address] Jun, 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 [address] [address] Apr, [facility] [address] [facility] [id number] [address] [place] [address] Apr, Vaginal discharge N89.8 and Vaginal yeast infection B37.3 [place] [address] [address] Mar, [place] [address] [address] Feb, [place] [address] [address] Feb, [place] [address] [address] 15 Feb, 2016 Abnormal cholesterol test E78.9 [place] [address] [address] 14 Feb, 2016 History of UTI Z87.440 ; Mixed hyperlipi demia E78.2 and Abnormal thyroid blood test R94.6 [id number] [address] [place] [address] Jan, [place] [address] [address] Jan, [place] [address] [address] Jan, Chest pain, unspecified type R07.9 ; Pal pitations R00.2 ; Hyperlipidemia, unspecified hyperlipidemia type E78.5 and Dyspnea, unspecified type R06.00 [place] [address] [address] Jan, [place] [address] [address] Dec, [facility] [address] [facility] [id number] [address] [address] Dec, Upper respiratory tract infe ction, unspecified type J06.9 [place] [address] [address] Dec, Major depressive disorder, single episod e, unspecified F32.9 and Panic attacks F41.0 [place] [address] [address] Nov, History of anemia Z86.2 ; Abnormal thyro id blood test R94.6 ; Mixed hyperlipidemia E78.2 ; Migraine headache G43.909 and Acute maxillary sinusitis, recurrence not specified J01.00 [place] [address] [address] Nov, 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 and Chondromalacia patellae of right knee M22.41 [place] [address] [address] Nov, Abnormal thyroid blood test R94.6 and Ab normal cholesterol test E78.9 [place] [address] [address] October, History of palpitations Z87.898 ; Pain i n left knee M25.562 and Pain in right knee M25.561 [place] [address] [address] Sep, Pelvic pain in female 625.9 [place] [address] [address] Sep, Pelvic pain R10.2 ; Galactorrhea in fema le N64.3 ; Knee pain, left M25.562 and Knee pain, right M25.561 [facility] [address] [facility] [id number] [address] [address] Aug, Cough R05 and Laceration of thumb, left S61.012A [place] [address] [address] 09 Aug, 2015 Cough R05 ; History of UTI Z87.440 and C ontraception management Z30.9 [place] [address] [address] [place] [id number] 02 Aug, 2015 History of UTI Z87.440 and Irregular men ses N92.6 [place] [address] [address] 18 Jul, 2015 Leukopenia D72.819 and Neutropenia D70.9 [place] [address] [address] 18 Jul, 2015 Leukopenia D72.819 and Neutropenia D70.9 [place] [address] [address] 17 Jul, 2015 Migraine headache G43.909 ; Heart burn R 12 and History of long-term use of multiple prescription drugs Z92.29 [facility] [address] [facility] [id number] [address] [place] [address] 15 Jul, 2015 Vaginal discharge N89.8 ; Hi gh risk sexual behavior Z72.51 ; Unprotected sex Z72.51 ; Acute upper respiratory infection, unspecified J06.9 and Other viral agents as the cause of diseases classified elsewhere B97.[address] [address] 04 Jul, 2015 Sore throat J02.9 ; Sinusitis J32.9 and Fever R50.9 [place] [address] [address] Jun, Migraine headache G43.909 and Heart burn R12 [address] [address] Jun, [address] [address] Jun, [address] [address] Jun, Evaluation regarding contraception optio ns Z30.09 ; Encounter for Depo-Provera contraception Z30.42 ; 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 269A [facility] [id number] [place] [address] May, Sore throat J02.[address] [address] Feb, Pelvic pain in female 625.9 and Menorrha ciro 626.[address] [address] Dec, Diarrhea 787.[address] [address] Dec, Pelvic pain in female 625.9 and Ganglion cyst of wrist 727.[address] [address] Nov, Eczema 692.[address] [address] Nov, [address] [address] 14 Sep, [address] [address] Sep, [address] [address] Jul, [facility] [address] [id number] [place] [address] Jul, [facility] [address] [id number] [place] [address] Jun, [facility] [address] [id number] [place] [address] Jun, [facility] [address] [id number] [place] [address] Jun, [facility] [address] [id number] [place] [address] Jun, [facility] [address] [id number] [place] [address] Jun, [facility] [address] [id number] [place] [address] Jun, [facility] [address] [place] [id number] [place] [address] Jun, [facility] [address] [id number] [place] [address] Jun, [facility] [address] [id number] [place] [address] May, [facility] [address] [id number] [place] [address] May, [facility] [address] [id number] [place] [address] May, [facility] [address] [id number] [place] [address] May, [facility] [address] [id number] [place] [address] Apr, [facility] [address] [id number] [place] [address] Apr, [facility] [address] [id number] [place] [address] Apr, [facility] [address] [id number] [place] [address] Apr, [facility] [address] [id number] [place] [address] Apr, [facility] [address] [facility] [id number] [place] [address] Apr, [facility] [address] [id number] [place] [address] 29 Feb, 2013 [facility] [address] [id number] [place] [address] 29 Feb, 2013 [facility] [address] [facility] [id number] [place] [address] Feb, 2013 [facility] [address] [id number] [place] [address] Feb, 2013 [facility] [address] [id number] [place] [address] Feb, 2013 [facility] [address] [id number] [place] [address] Feb, 2013 [facility] [address] [id number] [place] [address] 25 Feb, 2013 [facility] [address] [id number] [place] [address] 25 Feb, 2013 [facility] [address] [id number] [place] [address] 23 Feb, 2013 [facility] [address] [id number] [place] [address] 23 Feb, 2013 [facility] [address] [facility] [id number] [place] [address] 22 Feb, 2013 [facility] [address] [id number] [place] [address] 22 Feb, 2013 [facility] [address] [id number] [place] [address] 19 Feb, 2013 [facility] [address] [id number] [place] [address] 19 Feb, 2013 [facility] [address] [id number] [place] [address] 12 Feb, 2013 [facility] [address] [id number] [place] [address] Feb, 2013 [facility] [address] [facility] [id number] [place] [address] Feb, [facility] [address] [id number] [place] [address] Feb, [facility] [address] [facility] [id number] [place] [address] Feb, [facility] [address] [id number] [place] [address] Feb, [facility] [address] [id number] [place] [address] Jan, [facility] [address] [id number] [place] [address] Jan, [facility] [address] [id number] [place] [address] Jan, [facility] [address] [id number] [place] [address] Jan, [facility] [address] [id number] [place] [address] Jan, [facility] [address] [id number] [place] [address] Jan, [facility] [address] [id number] [place] [address] Jan, [facility] [address] [id number] [place] [address] Jan, [facility] [address] [id number] [place] [address] Dec, [facility] [address] [id number] [place] [address] Dec, [facility] [address] [id number] [place] [address] Dec, [facility] [address] [id number] [place] [address] Dec, [facility] [address] [facility] [id number] [place] [address] Dec, [facility] [address] [facility] [id number] [place] [address] Dec, [facility] [address] [id number] [place] [address] Dec, [facility] [address] [facility] [id number] [place] [address] Dec, [facility] [address] [id number] [place] [address] Dec, [facility] [address] [id number] [place] [address] Dec, [facility] [address] [id number] [place] [address] Dec, [facility] [address] [id number] [place] [address] Dec, [facility] [address] [id number] [place] [address] Nov, [facility] [address] [id number] [place] [address] Nov, [facility] [address] [id number] [place] [address] Nov, [facility] [address] [id number] [place] [address] Nov, [facility] [address] [facility] [id number] [place] [address] Nov, [facility] [address] [id number] [place] [address] Nov, [facility] [address] [id number] [place] [address] 16 Nov, 2013 [facility] [address] [id number] [place] [address] Nov, [facility] [address] [id number] [place] [address] Nov, [facility] [address] [facility] [id number] [place] [address] Nov, [facility] [address] [facility] [id number] [place] [address] October, [facility] [address] [id number] [place] [address] October, [facility] [address] [facility] [id number] [place] [address] October, [facility] [address] [id number] [place] [address] October, [facility] [address] [id number] [place] [address] October, [facility] [address] [id number] [place] [address] October, [facility] [address] [facility] [id number] [place] [address] Sep, [facility] [address] [id number] [place] [address] Sep, [facility] [address] [id number] [place] [address] Sep, [facility] [address] [id number] [place] [address] Sep, [facility] [address] [facility] [id number] [place] [address] Sep, [facility] [address] [id number] [place] [address] Sep, [facility] [address] [facility] [id number] [place] [address] Aug, [facility] [address] [id number] [place] [address] Aug, [facility] [address] [id number] [place] [address] Aug, [facility] [address] [id number] [place] [address] Aug, [facility] [address] [id number] [place] [address] Aug, [facility] [address] [place] [id number] [place] [address] Jun, [facility] [address] [place] [id number] [place] [address] Jun, [facility] [address] [id number] [place] [address] Jun, [facility] [address] [place] [id number] [place] [address] Jun, [facility] [address] [place] [id number] [place] [address] Jun, [facility] [address] [place] [id number] [place] [address] Jun, [facility] [address] [id number] [place] [address] Jun, [facility] [address] [place] [id number] [place] [address] Mar, [facility] [address] [place] [id number] [place] [address] Mar, IMMUNIZATIONS No Known Immunizations SOCIAL HISTORY [...]
--- OUTSIDE RECORDS SUMMARY | 2019-08-12 20:14 | XMS REPORT ---
Author Author Bridgett MAO Organization [facility] Address [address] [place] [address] Care Team Providers Care Exchange Floor Manager Name Role Phone KIARA MAO Unavailable PROBLEMS Type Condition ICD9-CM Code GWM13-DY Code Onset Dates Condition S tatus SNOMED Code Problem Migraine headache G43.909 Active 37 [id number] Problem Mixed hyperlipidemia E78.2 Active [id number] ALLERGIES No Information ENCOUNTERS Encounter Location Date Diagnosis [facility] [address] [address] Apr, [facility] [address] [address] Feb, Mixed hyperlipidemia E78.2 ; Palpitation s R00.2 and Abnormal thyroid blood test R94.6 [facility] [address] [address] Dec, [facility] [address] [address] Dec, [facility] [address] [address] Nov, Exercise counseling Z71.82 [facility] [address] [facility] [id number] [address] [address] Nov, Impetigo L01.00 and Morbid o besity E66.01 [facility] [address] [address] Nov, Exercise counseling Z71.82 [facility] [address] [address] October, Exercise counseling Z71.82 [place] [address] [address] October, Exercise counseling Z71.82 [place] [address] [address] Sep, Mixed hyperlipidemia E78.2 ; Weight loss counseling, encounter for Z71.3 ; 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 and Morbid obesity E66.01 [place] [address] [address] Sep, Exercise counseling Z71.82 [place] [address] [address] Sep, Exercise counseling Z71.82 [place] [address] [address] Sep, Exercise counseling Z71.82 [place] [address] [address] Sep, Exercise counseling Z71.82 [place] [address] [address] Aug, Screening for diabetes mellitus Z13.1 [place] [address] [address] Aug, Screening for diabetes mellitus Z13.1 [place] [address] [address] Aug, Exercise counseling Z71.82 [place] [address] [address] Aug, Encounter for initial prescription of co ntraceptive pills Z30.011 ; Contraception management Z30.9 ; Contraceptive education Z30.09 ; Mixed hyperlipidemia E78.2 ; Weight loss counseling, encounter for Z71.3 ; Screening for diabetes mellitus Z13.1 ; Screening for thyroid disorder Z13.29 ; History of anemia Z86.2 and Morbid obesity E66.01 [facility] [address] [facility] [id number] [address] [place] [address] October, Seasonal allergic rhinitis, unspecified trigger J30.2 and BMI 40.0-44.9, adult Z68.41 [place] [address] [address] 04 Sep, 2017 Pelvic pain R10.2 ; Chronic GERD K21.9 a nd BMI 40.0-44.9, adult Z68.41 [place] [address] [address] 20 Jul, 2017 [facility] [place] [id number] [address] [place] [address] Apr, Sore throat J02.9 ; Acute re current streptococcal tonsillitis J03.01 and BMI 40.0-44.9, adult Z68.41 [facility] [place] [id number] [address] [place] [address] 09 Mar, 2017 Sore throat J02.9 and Acute non-recurrent streptococcal tonsillitis J03.[address] [address] 05 Feb, [address] [place] [id number] [id number] [place] [id number] Jan, Anxiety and depression F41.[address] [place] [id number] [id number] [place] [id number] Dec, [address] [address] Nov, [address] [address] Jun, Normal in multigravida Z34.80 and First trimester Z33.[address] [address] Jun, 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 and Karthik 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 ear H92.[address] [address] May, [facility] [place] [id number] [address] [place] [address] May, Late menses N91.0 and Acute suppurative otitis media of left ear without spontaneous rupture of tympanic membrane, recurrence not specified H66.002 [place] [address] [address] May, [facility] [address] [address] Apr, [facility] [address] [facility] [id number] [address] [place] [address] Apr, Vaginal discharge N89.8 and Vaginal yeast infection B37.3 [place] [address] [address] Mar, [place] [address] [address] Feb, [place] [address] [address] Feb, [place] [address] [address] 15 Feb, 2016 Abnormal cholesterol test E78.9 [place] [address] [address] 14 Feb, 2016 History of UTI Z87.440 ; Mixed hyperlipi demia E78.2 and Abnormal thyroid blood test R94.6 [facility] [address] [place] [address] Jan, [place] [address] [address] Jan, [place] [address] [address] Jan, Chest pain, unspecified type R07.9 ; Pal pitations R00.2 ; Hyperlipidemia, unspecified hyperlipidemia type E78.5 and Dyspnea, unspecified type R06.00 [place] [address] [address] Jan, [place] [address] [address] Dec, [facility] [address] [place] [id number] [address] [place] [address] Dec, Upper respiratory tract infe ction, unspecified type J06.9 [place] [address] [address] Dec, Major depressive disorder, single episod e, unspecified F32.9 and Panic attacks F41.0 [place] [address] [address] Nov, History of anemia Z86.2 ; Abnormal thyro id blood test R94.6 ; Mixed hyperlipidemia E78.2 ; Migraine headache G43.909 and Acute maxillary sinusitis, recurrence not specified J01.00 [place] [address] [address] Nov, 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 and Chondromalacia patellae of right knee M22.41 [place] [address] [address] Nov, Abnormal thyroid blood test R94.6 and Ab normal cholesterol test E78.9 [place] [address] [address] October, History of palpitations Z87.898 ; Pain i n left knee M25.562 and Pain in right knee M25.561 [place] [address] [address] Sep, Pelvic pain in female 625.9 [place] [address] [address] Sep, Pelvic pain R10.2 ; Galactorrhea in fema le N64.3 ; Knee pain, left M25.562 and Knee pain, right M25.561 [facility] [address] [facility] [id number] [address] [address] Aug, Cough R05 and Laceration of thumb, left S61.012A [place] [address] [address] 09 Aug, 2015 Cough R05 ; History of UTI Z87.440 and C ontraception management Z30.9 [place] [address] [address] 02 Aug, 2015 History of UTI Z87.440 and Irregular men ses N92.6 [place] [address] [address] 18 Jul, 2015 Leukopenia D72.819 and Neutropenia D70.9 [place] [address] [address] 18 Jul, 2015 Leukopenia D72.819 and Neutropenia D70.9 [place] [address] [address] 17 Jul, 2015 Migraine headache G43.909 ; Heart burn R 12 and History of long-term use of multiple prescription drugs Z92.29 [facility] [address] [facility] [id number] [address] [place] [address] 15 Jul, 2015 Vaginal discharge N89.8 ; Hi gh risk sexual behavior Z72.51 ; Unprotected sex Z72.51 ; Acute upper respiratory infection, unspecified J06.9 and Other viral agents as the cause of diseases classified elsewhere B97.[address] [address] 04 Jul, 2015 Sore throat J02.9 ; Sinusitis J32.9 and Fever R50.9 [place] [address] [address] Jun, Migraine headache G43.909 and Heart burn R12 [place] [address] [address] Jun, [place] [address] [address] Jun, [place] [address] [address] Jun, Evaluation regarding contraception optio ns Z30.09 ; Encounter for Depo-Provera contraception Z30.42 ; Encntr for insole bottom filler exam (general) (routine) w/o abn findings Z01.419 ; Pelvic pain R10.2 ; Migraine headache G43.909 and Vaginal discharge N89.8 [place] [address] [address] 10 May, 2015 Overweight E66.3 ; Encounter for immuniz ation Z23 ; Pain of right thumb M79.644 and Headache R51 [facility] [address] [place] [id number] [place] [address] May, Insect bite of shoulder S40. 269A [facility] [id number] [place] [address] May, Sore throat J02.[address] [address] Feb, Pelvic pain in female 625.9 and Menorrha ciro 626.[address] [address] Dec, Diarrhea 787.[address] [address] Dec, Pelvic pain in female 625.9 and Ganglion cyst of wrist 727.[address] [address] Nov, Eczema 692.9 [place] [address] [address] Nov, [address] [address] 14 Sep, [address] [address] 13 Sep, [address] [address] Jul, [facility] [address] [id number] [place] [address] Jul, [facility] [address] [id number] [place] [address] Jun, [facility] [address] [id number] [place] [address] Jun, [facility] [address] [id number] [place] [address] Jun, [facility] [address] [id number] [place] [address] Jun, [facility] [address] [id number] [place] [address] Jun, [facility] [address] [id number] [place] [address] Jun, [facility] [address] [place] [id number] [place] [address] Jun, [facility] [address] [id number] [place] [address] Jun, [facility] [address] [id number] [place] [address] May, [facility] [address] [id number] [place] [address] May, [facility] [address] [id number] [place] [address] May, [facility] [address] [id number] [place] [address] May, [facility] [address] [id number] [place] [address] Apr, [facility] [address] [id number] [place] [address] Apr, [facility] [address] [id number] [place] [address] Apr, [facility] [address] [id number] [place] [address] Apr, [facility] [address] [facility] [id number] [place] [address] Apr, [facility] [address] [id number] [place] [address] Apr, [facility] [address] [id number] [place] [address] 29 Feb, 2013 [facility] [address] [id number] [place] [address] 29 Feb, 2013 [facility] [address] [id number] [place] [address] Feb, 2013 [facility] [address] [id number] [place] [address] Feb, 2013 [facility] [address] [id number] [place] [address] Feb, 2013 [facility] [address] [id number] [place] [address] Feb, 2013 [facility] [address] [id number] [place] [address] 25 Feb, 2013 [facility] [address] [id number] [place] [address] 25 Feb, 2013 [facility] [address] [id number] [place] [address] 23 Feb, 2013 [facility] [address] [id number] [place] [address] 23 Feb, 2013 [facility] [address] [id number] [place] [address] 22 Feb, 2013 [facility] [address] [id number] [place] [address] 22 Feb, 2013 [facility] [address] [id number] [place] [address] 19 Feb, 2013 [facility] [address] [id number] [place] [address] 19 Feb, 2013 [facility] [address] [id number] [place] [address] 12 Feb, 2013 [facility] [address] [id number] [place] [address] Feb, 2013 [facility] [address] [facility] [id number] [place] [address] Feb, 2013 [facility] [address] [id number] [place] [address] Feb, [facility] [address] [facility] [id number] [place] [address] Feb, [facility] [address] [id number] [place] [address] Feb, [facility] [address] [id number] [place] [address] Jan, [facility] [address] [id number] [place] [address] Jan, [facility] [address] [id number] [place] [address] Jan, [facility] [address] [id number] [place] [address] Jan, [facility] [address] [id number] [place] [address] Jan, [facility] [address] [id number] [place] [address] Jan, [facility] [address] [id number] [place] [address] Jan, [facility] [address] [id number] [place] [address] Jan, [facility] [address] [id number] [place] [address] Dec, [facility] [address] [id number] [place] [address] Dec, [facility] [address] [id number] [place] [address] Dec, [facility] [address] [facility] [id number] [place] [address] Dec, [facility] [address] [facility] [id number] [place] [address] Dec, [facility] [address] [facility] [id number] [place] [address] Dec, 2013 [facility] [address] [id number] [place] [address] Dec, [facility] [address] [facility] [id number] [place] [address] Dec, [facility] [address] [id number] [place] [address] Dec, [facility] [address] [id number] [place] [address] Dec, [facility] [address] [id number] [place] [address] Dec, [facility] [address] [id number] [place] [address] Dec, [facility] [address] [id number] [place] [address] Nov, [facility] [address] [id number] [place] [address] Nov, [facility] [address] [id number] [place] [address] Nov, [facility] [address] [id number] [place] [address] Nov, [facility] [address] [facility] [id number] [place] [address] Nov, [facility] [address] [id number] [place] [address] Nov, [facility] [address] [id number] [place] [address] 16 Nov, 2013 [facility] [address] [id number] [place] [address] Nov, [facility] [address] [facility] [id number] [place] [address] Nov, [facility] [address] [facility] [id number] [place] [address] Nov, [facility] [address] [id number] [place] [address] October, [facility] [address] [id number] [place] [address] October, [facility] [address] [facility] [id number] [place] [address] October, [facility] [address] [id number] [place] [address] October, [facility] [address] [id number] [place] [address] October, [facility] [address] [id number] [place] [address] October, [facility] [address] [id number] [place] [address] Sep, [facility] [address] [id number] [place] [address] Sep, [facility] [address] [id number] [place] [address] Sep, [facility] [address] [id number] [place] [address] Sep, [facility] [address] [id number] [place] [address] Sep, [facility] [address] [id number] [place] [address] Sep, [facility] [address] [id number] [place] [address] Aug, [facility] [address] [id number] [place] [address] Aug, [facility] [address] [id number] [place] [address] Aug, [facility] [address] [id number] [place] [address] Aug, [facility] [address] [place] [id number] [place] [address] Aug, [facility] [address] [place] [id number] [place] [address] Jun, [facility] [address] [place] [id number] [place] [address] Jun, [facility] [address] [place] [id number] [place] [address] Jun, [facility] [address] [place] [id number] [place] [address] Jun, [facility] [address] [place] [id number] [place] [address] Jun, [facility] [address] [place] [id number] [place] [address] Jun, [facility] [address] [place] [id number] [place] [address] Jun, [facility] [address] [place] [id number] [place] [address] Mar, [facility] [address] [place] [id number] [place] [address] Mar, IMMUNIZATIONS No Known Immunizations SOCIAL HISTORY [...]
--- OUTSIDE RECORDS SUMMARY | 2019-08-12 20:14 | XMS REPORT ---
Author Author Bridgett TORRES [facility] Address [address] [place] [address] Care Team Providers Care Fire Prevention Captain Name Role Phone ESTEFANIA TORRES Unavailable PROBLEMS Type Condition ICD9-CM Code [id number] Code Onset Dates Condition S tatus SNOMED Code Problem Migraine headache G43.909 Active 37 688859 Problem Mixed hyperlipidemia E78.2 Active [id number] ALLERGIES No Information ENCOUNTERS Encounter Location Date Diagnosis [facility] [address] [place] [id number] [address] [place] [address] Feb, Mixed hyperlipidemia E78.2 ; Palpitations R00.2 and Abnormal thyroid blood test R94.6 [facility] [address] [facility] [id number] [address] [place] [address] Dec, [facility] [address] [facility] [id number] [address] [place] [address] Dec, [facility] [address] [place] [id number] [address] [place] [address] Nov, Exercise counseling Z71.82 [facility] [address] [id number] [address] [place] [address] Nov, Impetigo L01.00 and Morbid o besity E66.01 [facility] [address] [facility] [id number] [address] [place] [address] Nov, Exercise counseling Z71.82 [facility] [address] [place] [id number] [address] [place] [address] October, Exercise counseling Z71.82 [facility] [address] [id number] [address] [place] [address] October, Exercise counseling Z71.82 [facility] [address] [facility] [id number] [address] [place] [address] Sep, Mixed hyperlipidemia E78.2 ; Weight loss counseling, encounter for Z71.3 ; 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 and Morbid obesity E66.01 [facility] [address] [facility] [id number] [address] [place] [address] Sep, Exercise counseling Z71.82 [place] [address] [facility] [id number] [address] [place] [address] Sep, Exercise counseling Z71.82 [place] [address] [facility] [id number] [place] [address] Sep, Exercise counseling Z71.82 [place] [address] [place] [address] Sep, Exercise counseling Z71.82 [place] [address] [address] Aug, Screening for diabetes melli tus Z13.1 [place] [address] [address] Aug, Screening for diabetes melli tus Z13.1 [place] [address] [place] [id number] [address] [place] [address] Aug, Exercise counseling Z71.82 [place] [address] [address] Aug, Encounter for initial prescr iption of contraceptive pills Z30.011 ; Contraception management Z30.9 ; Contraceptive education Z30.09 ; Mixed hyperlipidemia E78.2 ; Weight loss counseling, encounter for Z71.3 ; Screening for diabetes mellitus Z13.1 ; Screening for thyroid disorder Z13.29 ; History of anemia Z86.2 and Morbid obesity E66.01 [facility] [address] [facility] [id number] [address] [place] [address] October, Seasonal allergic rhinitis, unspecified trigger J30.2 and BMI 40.0-44.9, adult Z68.41 [facility] [address] [place] [address] Sep, 2018 Pelvic pain R10.2 ; Chronic GERD K21.9 and BMI 40.0-44.9, adult Z68.41 [place] [address] [place] [id number] [address] [place] [address] Jul, [facility] [place] [address] [address] Apr, Sore throat J02.9 ; Acute re current streptococcal tonsillitis J03.01 and BMI 40.0-44.9, adult Z68.41 [facility] [place] [address] [place] [id number] [place] [address] Mar, Sore throat J02.9 and Acute non-recurrent streptococcal tonsillitis J03.00 [place] [id number] [address] [place] [address] Feb, [facility] [address] [id number] [id number] Jan, Anxiety and depression F41.8 [facility] [id number] [place] [id number] Dec, [place] [id number] [address] [place] [address] Nov, [place] [address] [place] [id number] [place] [address] Jun, Normal in multigra sonny Z34.80 and First trimester Z33.[address] [address] Jun, Slow transit constipation K5 9.01 and Ota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 ear H92.01 [place] [address] [place] [address] May, [facility] [address] [id number] [address] [place] [address] May, Late menses N91.0 and Acute suppurative otitis media of left ear without spontaneous rupture of tympanic membrane, recurrence not specified H66.002 [facility] [address] [place] [id number] [address] [place] [address] May, [facility] [address] [place] [id number] [place] [address] Apr, [facility] [address] [facility] [id number] [address] [place] [address] Apr, Vaginal discharge N89.8 and Vaginal yeast infection B37.3 [place] [address] [place] [id number] [place] [address] Mar, [facility] [address] [address] Feb, [facility] [address] [place] [id number] [place] [address] Feb, [facility] [address] [address] 15 Feb, 2016 Abnormal cholesterol test E7 8.9 [place] [address] [address] 14 Feb, 2016 History of UTI Z87.440 ; Mix ed hyperlipidemia E78.2 and Abnormal thyroid blood test R94.6 [facility] [address] [place] [address] Jan, [place] [address] [place] [id number] [place] [address] Jan, [place] [address] [address] Jan, Chest pain, unspecified type R07.9 ; Palpitations R00.2 ; Hyperlipidemia, unspecified hyperlipidemia type E78.5 and Dyspnea, unspecified type R06.00 [place] [address] [place] [id number] [address] Jan, [facility] [address] [address] Dec, [facility] [address] [place] [id number] [address] [place] [address] Dec, Upper respiratory tract infe ction, unspecified type J06.9 [place] [address] [address] Dec, Major depressive disorder, s kelly episode, unspecified F32.9 and Panic attacks F41.0 [place] [address] [address] Nov, History of anemia Z86.2 ; Ab normal thyroid blood test R94.6 ; Mixed hyperlipidemia E78.2 ; Migraine headache G43.909 and Acute maxillary sinusitis, recurrence not specified J01.00 [place] [address] [address] Nov, 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 898 ; Pain in left knee M25.562 and Pain in right knee M25.561 [place] [address] [address] Sep, Pelvic pain in female 625.9 [place] [address] [address] Sep, Pelvic pain R10.2 ; Galactor shahriar in female N64.3 ; Knee pain, left M25.562 and Knee pain, right M25.561 [facility] [address] [address] 17 Aug, 2015 Cough R05 and Laceration of thumb, left S61.012A [place] [address] [address] 09 Aug, 2015 Cough R05 ; History of UTI Z 87.440 and Contraception management Z30.9 [place] [address] [address] 02 Aug, 2015 History of UTI Z87.440 and I rregular menses N92.6 [place] [address] [address] 18 Jul, 2015 Leukopenia D72.819 and Neutr openia D70.9 [place] [address] [address] 18 Jul, 2015 Leukopenia D72.819 and Neutr openia D70.9 [place] [address] [address] 17 Jul, 2015 Migraine headache G43.909 ; Heart burn R12 and History of long-term use of multiple prescription drugs Z92.29 [facility] [address] [address] 15 Jul, 2015 Vaginal discharge N89.8 ; Hi gh risk sexual behavior Z72.51 ; Unprotected sex Z72.51 ; Acute upper respiratory infection, unspecified J06.9 and Other viral agents as the cause of diseases classified elsewhere B97.89 [place] [address] [address] 04 Jul, 2015 Sore throat J02.9 ; Sinusiti s J32.9 and Fever R50.9 [place] [address] [address] Jun, Migraine headache G43.909 an d Heart burn R12 [place] [address] [address] 14 Jun, 2015 [place] [address] [address] 07 Jun, 2015 [place] [address] [address] 06 Jun, 2015 Evaluation regarding contrac eption options Z30.09 ; Encounter for Depo-Provera contraception Z30.42 ; 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 269A [facility] [address] [address] May, Sore throat J02.9 [place] [address] [address] 24 Feb, 2015 Pelvic pain in female 625.9 and Menorrhagia 626.2 [place] [address] [address] Dec, Diarrhea 787.91 [place] [address] [address] Dec, Pelvic pain in female 625.9 and Ganglion cyst of wrist 727.41 [place] [address] [address] Nov, Eczema 692.9 [place] [address] [address] 12 Nov, 2014 [facility] [place] [facility] [address] [id number] [address] [place] [address], [place] [address] 14 Sep, 2014 [facility] [address] [id number] [address] [place] [address], [place] [address] Sep, [facility] [address] [id number] [address] [place] [address], [place] [address] Jul, [facility] [address] [id number] [address] [place] [address], [place] [address] Jul, [facility] [address] [id number] [address] [place] [address], [place] [address] Jun, [facility] [address] [id number] [address] [place] [address], [place] [address] Jun, [facility] [address] [id number] [address] [place] [address], [place] [address] Jun, [facility] [address] [id number] [address] [place] [address], [place] [address] Jun, [facility] [address] [id number] [address] [place] [address], [place] [address] Jun, [facility] [address] [id number] [address] [place] [address], [place] [address] Jun, [facility] [address] [id number] [address] [place] [address], [place] [address] Jun, [facility] [address] [id number] [address] [place] [address], [place] [address] Jun, [facility] [address] [id number] [address] [place] [address], [place] [address] May, [facility] [address] [id number] [address] [place] [address], [place] [address] May, [facility] [address] [id number] [address] [place] [address], [place] [address] May, [facility] [address] [id number] [address] [place] [address], [place] [address] May, [facility] [place] [facility] [address] [id number] [address] [place] [address], [place] [address] Apr, [facility] [place] [facility] [address] [id number] [address] [place] [address], [place] [address] Apr, [facility] [place] [facility] [address] [id number] [address] [place] [address], [place] [address] Apr, [facility] [place] [facility] [address] [id number] [address] [place] [address], [place] [address] Apr, [facility] [place] [facility] [address] [id number] [address] [place] [address], [place] [address] Apr, [facility] [place] [facility] [address] [id number] [address] [place] [address], [place] [address] Apr, [facility] [place] [facility] [address] [id number] [address] [place] [address], [place] [address] Feb, [facility] [place] [facility] [address] [id number] [address] [place] [address], [place] [address] 29 Feb, 2014 [facility] [place] [facility] [address] [id number] [address] [place] [address], [place] [address] Feb, [facility] [place] [facility] [address] [id number] [address] [place] [address], [place] [address] Feb, [facility] [place] [facility] [address] [id number] [address] [place] [address], [place] [address] Feb, 2013 [facility] [place] [facility] [address] [id number] [address] [place] [address], [place] [address] 26 Feb, 2013 [facility] [place] [facility] [address] [id number] [address] [place] [address], [place] [address] 25 Feb, 2014 [facility] [place] [facility] [address] [id number] [address] [place] [address], [place] [address] 25 Feb, 2013 [facility] [place] [facility] [address] [id number] [address] [place] [address], [place] [address] 23 Feb, 2013 [facility] [place] [facility] [address] [id number] [facility] [address] 23 Feb, 2013 [facility] [address] [id number] [facility] [address] 22 Feb, 2013 [facility] [address] [id number] [facility] [address] 22 Feb, 2013 [facility] [address] [id number] [address] [place] [address], [place] [address] 19 Feb, 2013 [facility] [address] [id number] [address] [place] [address], [place] [address] 19 Feb, 2013 [facility] [address] [id number] [address] [place] [address], [place] [address] 12 Feb, 2013 [facility] [address] [id number] [address] [place] [address], [place] [address] 10 Feb, 2013 [facility] [address] [id number] [address] [place] [address], [place] [address] 10 Feb, 2013 [facility] [address] [id number] [address] [place] [address], [place] [address] 04 Feb, 2013 [facility] [address] [id number] [address] [place] [address], [place] [address] 03 Feb, 2013 [facility] [address] [id number] [address] [place] [address], [place] [address] 03 Feb, 2013 [facility] [address] [id number] [address] [place] [address], [place] [address] Jan, [facility] [address] [id number] [address] [place] [address], [place] [address] Jan, [facility] [address] [id number] [address] [place] [address], [place] [address] Jan, [facility] [address] [id number] [address] [place] [address], [place] [address] Jan, [facility] [address] [id number] [address] [place] [address], [place] [address] Jan, [facility] [place] [facility] [address] [id number] [address] [place] [address], [place] [address] Jan, [facility] [place] [facility] [address] [id number] [address] [place] [address], [place] [address] Jan, [facility] [address] [id number] [address] [place] [address], [place] [address] Jan, [facility] [place] [facility] [address] [id number] [address] [place] [address], [place] [address] Dec, [facility] [address] [id number] [address] [place] [address], [place] [address] Dec, [facility] [address] [id number] [address] [place] [address], [place] [address] Dec, [facility] [address] [id number] [address] [place] [address], [place] [address] Dec, [facility] [address] [id number] [address] [place] [address], [place] [address] Dec, [facility] [address] [id number] [address] [place] [address], [place] [address] Dec, [facility] [address] [id number] [address] [place] [address], [place] [address] Dec, [facility] [address] [id number] [address] [place] [address], [place] [address] Dec, [facility] [place] [facility] [address] [id number] [address] [place] [address], [place] [address] Dec, [facility] [place] [facility] [address] [id number] [address] [place] [address], [place] [address] Dec, [facility] [place] [facility] [address] [id number] [address] [place] [address], [place] [address] Dec, [facility] [place] [facility] [address] [id number] [address] [place] [address], [place] [address] Dec, [facility] [place] [facility] [address] [id number] [address] [place] [address], [place] [address] Nov, [facility] [address] [id number] [address] [place] [address], [place] [address] Nov, [facility] [address] [id number] [address] [place] [address], [place] [address] Nov, [facility] [address] [id number] [address] [place] [address], [place] [address] Nov, [facility] [address] [id number] [address] [place] [address], [place] [address] Nov, [facility] [address] [id number] [address] [place] [address], [place] [address] Nov, [facility] [address] [id number] [address] [place] [address], [place] [address] Nov, [facility] [address] [id number] [address] [place] [address], [place] [address] Nov, [facility] [address] [id number] [address] [place] [address], [place] [address] Nov, [facility] [address] [id number] [address] [place] [address], [place] [address] Nov, [facility] [address] [id number] [address] [place] [address], [place] [address] October, [facility] [address] [id number] [address] [place] [address], [place] [address] October, [facility] [address] [id number] [address] [place] [address], [place] [address] October, [facility] [place] [facility] [address] [id number] [address] [place] [address], [place] [address] October, [facility] [place] [facility] [address] [id number] [address] [place] [address], [place] [address] October, [facility] [address] [id number] [address] [place] [address], [place] [address] October, [facility] [place] [facility] [address] [id number] [facility] [address] Sep, [facility] [address] [id number] [address] [place] [address], [place] [address] Sep, [facility] [address] [id number] [address] [place] [address], [place] [address] Sep, [facility] [address] [id number] [address] [place] [address], [place] [address] Sep, [facility] [address] [id number] [address] [place] [address], [place] [address] Sep, [facility] [address] [id number] [address] [place] [address], [place] [address] Sep, [facility] [address] [id number] [address] [place] [address], [place] [address] Aug, [facility] [address] [id number] [address] [place] [address], [place] [address] Aug, [facility] [address] [id number] [address] [place] [address], [place] [address] Aug, [facility] [address] [id number] [address] [place] [address], [place] [address] Aug, [facility] [address] [id number] [address] [place] [address], [place] [address] Aug, [facility] [address] [id number] [address] [place] [address], [place] [address] Jun, [facility] [address] [id number] [address] [place] [address], [place] [address] Jun, [facility] [address] [id number] [address] [place] [address], [place] [address] Jun, [facility] [address] [id number] [address] [place] [address], [place] [address] Jun, [facility] [address] [id number] [address] [place] [address], [place] [address] Jun, [facility] [address] [facility] [id number] [address] [place] [id number] Jun, [facility] [address] [facility] [id number] [address] [place] [address] Jun, [facility] [address] [facility] [id number] [address] [place] [address] Mar, [facility] [address] [facility] [id number] [address] [place] [id number] Mar, IMMUNIZATIONS No Known Immunizations SOCIAL HISTORY Never Assessed REASON FOR VISIT PLAN OF CARE VITAL SIGNS Height 61 in 2014-01-09 Weight 249.1 lbs 2014-01-09 Temperature 97.6 degrees Fahrenheit 2014-01-09 Heart Rate 78 bpm 2014-01-09 Respiratory Rate 20 2014-01-09 Blood pressure systolic 124 mmHg 2014-01-09 Blood pressure diastolic 76 mmHg 2014-01-09 MEDICATIONS Unknown Medications RESULTS No Results PROCEDURES Procedure Date Ordered Result Body Site COMPLETE CBC W/AUTO DIFF WBC January 09, 2014 GLUCOSE TEST January 09, 2014 VENIPUNCT, ROUTINE* January 09, 2014 URINE-NO MICRO January 09, 2014 INSTRUCTIONS MEDICATIONS ADMINISTERED No Known Medications [...]
--- OUTSIDE RECORDS SUMMARY | 2019-08-12 20:14 | XMS REPORT ---
Author Author Bridgett TORRES [facility] Address [address] [place] [address] Care Team Providers Care Supervisor Carding Name Role Phone ESTEFANIA TORRES Unavailable PROBLEMS Type Condition ICD9-CM Code NKO33-VB Code Onset Dates Condition S tatus SNOMED Code Problem Migraine headache G43.909 Active 37 847661 Problem Mixed hyperlipidemia E78.2 Active [id number] ALLERGIES No Information ENCOUNTERS Encounter Location Date Diagnosis [facility] [address] [id number] [address] [place] [address] Feb, Mixed hyperlipidemia E78.2 ; Palpitations R00.2 and Abnormal thyroid blood test R94.6 [facility] [address] [facility] [id number] [address] [place] [address] Dec, [facility] [address] [facility] [id number] [address] [place] [address] Dec, [facility] [address] [place] [address] [id number] [address] [place] [address] Nov, Exercise counseling Z71.82 [facility] [address] [id number] [address] [place] [address] Nov, Impetigo L01.00 and Morbid o besity E66.01 [facility] [address] [facility] [id number] [address] [place] [address] Nov, Exercise counseling Z71.82 [facility] [address] [id number] [address] [place] [address] October, Exercise counseling Z71.82 [facility] [address] [id number] [address] [place] [address] October, Exercise counseling Z71.82 [facility] [address] [facility] [id number] [address] [place] [address] Sep, Mixed hyperlipidemia E78.2 ; Weight loss counseling, encounter for Z71.3 ; 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 and Morbid obesity E66.01 [facility] [address] [facility] [id number] [address] [place] [address] Sep, Exercise counseling Z71.82 [place] [address] [facility] [id number] [address] [place] [address] Sep, Exercise counseling Z71.82 [place] [address] [facility] [id number] [place] [address] Sep, Exercise counseling Z71.82 [place] [address] [place] [address] Sep, Exercise counseling Z71.82 [place] [address] [address] Aug, Screening for diabetes melli tus Z13.1 [place] [address] [address] Aug, Screening for diabetes melli tus Z13.1 [place] [address] [place] [id number] [address] [place] [address] Aug, Exercise counseling Z71.82 [place] [address] [address] Aug, Encounter for initial prescr iption of contraceptive pills Z30.011 ; Contraception management Z30.9 ; Contraceptive education Z30.09 ; Mixed hyperlipidemia E78.2 ; Weight loss counseling, encounter for Z71.3 ; Screening for diabetes mellitus Z13.1 ; Screening for thyroid disorder Z13.29 ; History of anemia Z86.2 and Morbid obesity E66.01 [facility] [address] [facility] [id number] [address] [place] [address] October, Seasonal allergic rhinitis, unspecified trigger J30.2 and BMI 40.0-44.9, adult Z68.41 [facility] [address] [place] [address] Sep, 2018 Pelvic pain R10.2 ; Chronic GERD K21.9 and BMI 40.0-44.9, adult Z68.41 [place] [address] [place] [id number] [address] [place] [address] Jul, [facility] [place] [address] [address] Apr, Sore throat J02.9 ; Acute re current streptococcal tonsillitis J03.01 and BMI 40.0-44.9, adult Z68.41 [facility] [place] [address] [id number] [place] [address] Mar, Sore throat J02.9 and Acute non-recurrent streptococcal tonsillitis J03.00 [place] [id number] [address] [place] [address] Feb, [facility] [address] [id number] [id number] Jan, Anxiety and depression F41.8 [facility] [id number] [place] [id number] Dec, [place] [id number] [place] [address] Nov, [place] [address] [place] [place] [id number] [place] [address] Jun, Normal in multigra sonny Z34.80 and First trimester Z33.[address] [address] Jun, Slow transit constipation K5 9.01 and Ota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 ear H92.01 [place] [address] [place] [address] May, [facility] [address] [id number] [address] [place] [address] May, Late menses N91.0 and Acute suppurative otitis media of left ear without spontaneous rupture of tympanic membrane, recurrence not specified H66.002 [facility] [address] [id number] [address] [place] [address] May, [facility] [address] [id number] [address] [place] [address] Apr, [facility] [address] [facility] [id number] [address] [place] [address] Apr, Vaginal discharge N89.8 and Vaginal yeast infection B37.3 [place] [address] [place] [address] [id number] [place] [address] Mar, [facility] [address] [address] Feb, [facility] [address] [id number] [place] [address] Feb, [facility] [address] [address] 15 Feb, 2016 Abnormal cholesterol test E7 8.9 [place] [address] [address] 14 Feb, 2016 History of UTI Z87.440 ; Mix ed hyperlipidemia E78.2 and Abnormal thyroid blood test R94.6 [facility] [address] [place] [address] Jan, [place] [address] [place] [id number] [place] [address] Jan, [place] [address] [address] Jan, Chest pain, unspecified type R07.9 ; Palpitations R00.2 ; Hyperlipidemia, unspecified hyperlipidemia type E78.5 and Dyspnea, unspecified type R06.00 [place] [address] [place] [address] Jan, [facility] [address] [address] Dec, [facility] [address] [id number] [address] [place] [address] Dec, Upper respiratory tract infe ction, unspecified type J06.9 [place] [address] [address] Dec, Major depressive disorder, s kelly episode, unspecified F32.9 and Panic attacks F41.0 [place] [address] [address] Nov, History of anemia Z86.2 ; Ab normal thyroid blood test R94.6 ; Mixed hyperlipidemia E78.2 ; Migraine headache G43.909 and Acute maxillary sinusitis, recurrence not specified J01.00 [place] [address] [address] Nov, 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 898 ; Pain in left knee M25.562 and Pain in right knee M25.561 [place] [address] [address] Sep, Pelvic pain in female 625.9 [place] [address] [address] Sep, Pelvic pain R10.2 ; Galactor shahriar in female N64.3 ; Knee pain, left M25.562 and Knee pain, right M25.561 [facility] [address] [address] 17 Aug, 2015 Cough R05 and Laceration of thumb, left S61.012A [place] [address] [address] 09 Aug, 2015 Cough R05 ; History of UTI Z 87.440 and Contraception management Z30.9 [place] [address] [address] 02 Aug, 2015 History of UTI Z87.440 and I rregular menses N92.6 [place] [address] [address] 18 Jul, 2015 Leukopenia D72.819 and Neutr openia D70.9 [place] [address] [address] 18 Jul, 2015 Leukopenia D72.819 and Neutr openia D70.9 [place] [address] [address] 17 Jul, 2015 Migraine headache G43.909 ; Heart burn R12 and History of long-term use of multiple prescription drugs Z92.29 [facility] [address] [address] 15 Jul, 2015 Vaginal discharge N89.8 ; Hi gh risk sexual behavior Z72.51 ; Unprotected sex Z72.51 ; Acute upper respiratory infection, unspecified J06.9 and Other viral agents as the cause of diseases classified elsewhere B97.89 [place] [address] [address] 04 Jul, 2015 Sore throat J02.9 ; Sinusiti s J32.9 and Fever R50.9 [place] [address] [address] Jun, Migraine headache G43.909 an d Heart burn R12 [place] [address] [address] 14 Jun, 2015 [place] [address] [address] 07 Jun, 2015 [place] [address] [address] 06 Jun, 2015 Evaluation regarding contrac eption options Z30.09 ; Encounter for Depo-Provera contraception Z30.42 ; 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 269A [facility] [address] [address] May, Sore throat J02.9 [place] [address] [address] 24 Feb, 2015 Pelvic pain in female 625.9 and Menorrhagia 626.2 [place] [address] [address] Dec, Diarrhea 787.91 [place] [address] [address] Dec, Pelvic pain in female 625.9 and Ganglion cyst of wrist 727.41 [place] [address] [address] Nov, Eczema 692.9 [place] [address] [address] 12 Nov, 2014 [facility] [place] [facility] [address] [id number] [address] [place] [address], [place] [address] 14 Sep, 2014 [facility] [address] [id number] [address] [place] [address], [place] [address] Sep, [facility] [address] [id number] [address] [place] [address], [place] [address] Jul, [facility] [address] [id number] [address] [place] [address], [place] [address] Jul, [facility] [address] [id number] [address] [place] [address], [place] [address] Jun, [facility] [address] [id number] [address] [place] [address], [place] [address] Jun, [facility] [address] [id number] [address] [place] [address], [place] [address] Jun, [facility] [address] [id number] [address] [place] [address], [place] [address] Jun, [facility] [address] [id number] [address] [place] [address], [place] [address] Jun, [facility] [address] [id number] [address] [place] [address], [place] [address] Jun, [facility] [address] [id number] [address] [place] [address], [place] [address] Jun, [facility] [address] [id number] [address] [place] [address], [place] [address] Jun, [facility] [address] [id number] [address] [place] [address], [place] [address] May, [facility] [address] [id number] [address] [place] [address], [place] [address] May, [facility] [address] [id number] [address] [place] [address], [place] [address] May, [facility] [address] [id number] [address] [place] [address], [place] [address] May, [facility] [place] [facility] [address] [id number] [address] [place] [address], [place] [address] Apr, [facility] [place] [facility] [address] [id number] [address] [place] [address], [place] [address] Apr, [facility] [place] [facility] [address] [id number] [address] [place] [address], [place] [address] Apr, [facility] [place] [facility] [address] [id number] [address] [place] [address], [place] [address] Apr, [facility] [place] [facility] [address] [id number] [address] [place] [address], [place] [address] Apr, [facility] [place] [facility] [address] [id number] [address] [place] [address], [place] [address] Apr, [facility] [place] [facility] [address] [id number] [address] [place] [address], [place] [address] Feb, [facility] [place] [facility] [address] [id number] [address] [place] [address], [place] [address] 29 Feb, 2014 [facility] [place] [facility] [address] [id number] [address] [place] [address], [place] [address] Feb, [facility] [place] [facility] [address] [id number] [address] [place] [address], [place] [address] Feb, [facility] [place] [facility] [address] [id number] [address] [place] [address], [place] [address] Feb, 2013 [facility] [place] [facility] [address] [id number] [address] [place] [address], [place] [address] 26 Feb, 2013 [facility] [place] [facility] [address] [id number] [address] [place] [address], [place] [address] 25 Feb, 2014 [facility] [place] [facility] [address] [id number] [address] [place] [address], [place] [address] 25 Feb, 2013 [facility] [place] [facility] [address] [id number] [address] [place] [address], [place] [address] 23 Feb, 2013 [facility] [place] [facility] [address] [id number] [facility] [address] 23 Feb, 2013 [facility] [address] [id number] [facility] [address] 22 Feb, 2013 [facility] [address] [id number] [facility] [address] 22 Feb, 2013 [facility] [address] [id number] [address] [place] [address], [place] [address] 19 Feb, 2013 [facility] [address] [id number] [address] [place] [address], [place] [address] 19 Feb, 2013 [facility] [address] [id number] [address] [place] [address], [place] [address] 12 Feb, 2013 [facility] [address] [id number] [address] [place] [address], [place] [address] 10 Feb, 2013 [facility] [address] [id number] [address] [place] [address], [place] [address] 10 Feb, 2013 [facility] [address] [id number] [address] [place] [address], [place] [address] 04 Feb, 2013 [facility] [address] [id number] [address] [place] [address], [place] [address] 03 Feb, 2013 [facility] [address] [id number] [address] [place] [address], [place] [address] 03 Feb, 2013 [facility] [address] [id number] [address] [place] [address], [place] [address] Jan, [facility] [address] [id number] [address] [place] [address], [place] [address] Jan, [facility] [address] [id number] [address] [place] [address], [place] [address] Jan, [facility] [address] [id number] [address] [place] [address], [place] [address] Jan, [facility] [address] [id number] [address] [place] [address], [place] [address] Jan, [facility] [place] [facility] [address] [id number] [address] [place] [address], [place] [address] Jan, [facility] [place] [facility] [address] [id number] [address] [place] [address], [place] [address] Jan, [facility] [address] [id number] [address] [place] [address], [place] [address] Jan, [facility] [place] [facility] [address] [id number] [address] [place] [address], [place] [address] Dec, [facility] [address] [id number] [address] [place] [address], [place] [address] Dec, [facility] [address] [id number] [address] [place] [address], [place] [address] Dec, [facility] [address] [id number] [address] [place] [address], [place] [address] Dec, [facility] [address] [id number] [address] [place] [address], [place] [address] Dec, [facility] [address] [id number] [address] [place] [address], [place] [address] Dec, [facility] [address] [id number] [address] [place] [address], [place] [address] Dec, [facility] [address] [id number] [address] [place] [address], [place] [address] Dec, [facility] [place] [facility] [address] [id number] [address] [place] [address], [place] [address] Dec, [facility] [place] [facility] [address] [id number] [address] [place] [address], [place] [address] Dec, [facility] [place] [facility] [address] [id number] [address] [place] [address], [place] [address] Dec, [facility] [place] [facility] [address] [id number] [address] [place] [address], [place] [address] Dec, [facility] [place] [facility] [address] [id number] [address] [place] [address], [place] [address] Nov, [facility] [address] [id number] [address] [place] [address], [place] [address] Nov, [facility] [address] [id number] [address] [place] [address], [place] [address] Nov, [facility] [address] [id number] [address] [place] [address], [place] [address] Nov, [facility] [address] [id number] [address] [place] [address], [place] [address] Nov, [facility] [address] [id number] [address] [place] [address], [place] [address] Nov, [facility] [address] [id number] [address] [place] [address], [place] [address] Nov, [facility] [address] [id number] [address] [place] [address], [place] [address] Nov, [facility] [address] [id number] [address] [place] [address], [place] [address] Nov, [facility] [address] [id number] [address] [place] [address], [place] [address] Nov, [facility] [address] [id number] [address] [place] [address], [place] [address] October, [facility] [address] [id number] [address] [place] [address], [place] [address] October, [facility] [address] [id number] [address] [place] [address], [place] [address] October, [facility] [place] [facility] [address] [id number] [address] [place] [address], [place] [address] October, [facility] [place] [facility] [address] [id number] [address] [place] [address], [place] [address] October, [facility] [address] [id number] [address] [place] [address], [place] [address] October, [facility] [place] [facility] [address] [id number] [facility] [address] Sep, [facility] [address] [id number] [address] [place] [address], [place] [address] Sep, [facility] [address] [id number] [address] [place] [address], [place] [address] Sep, [facility] [address] [id number] [address] [place] [address], [place] [address] Sep, [facility] [address] [id number] [address] [place] [address], [place] [address] Sep, [facility] [address] [id number] [address] [place] [address], [place] [address] Sep, [facility] [address] [id number] [address] [place] [address], [place] [address] Aug, [facility] [address] [id number] [address] [place] [address], [place] [address] Aug, [facility] [address] [id number] [address] [place] [address], [place] [address] Aug, [facility] [address] [id number] [address] [place] [address], [place] [address] Aug, [facility] [address] [id number] [address] [place] [address], [place] [address] Aug, [facility] [address] [id number] [address] [place] [address], [place] [address] Jun, [facility] [address] [id number] [address] [place] [address], [place] [address] Jun, [facility] [address] [id number] [address] [place] [address], [place] [address] Jun, [facility] [address] [id number] [address] [place] [address], [place] [address] Jun, [facility] [address] [id number] [address] [place] [address], [place] [address] Jun, [facility] [address] [facility] [id number] [address] [place] [phone] Jun, [facility] [address] [facility] [id number] [address] [place] [phone] Jun, [facility] [address] [facility] [id number] [address] [place] [phone] Mar, [facility] [address] [facility] [id number] [address] [place] [phone] Mar, IMMUNIZATIONS No Known Immunizations SOCIAL HISTORY Never Assessed REASON FOR VISIT PLAN OF CARE VITAL SIGNS MEDICATIONS Unknown Medications RESULTS No Results PROCEDURES Procedure Date Ordered Result Body Site GLUCOSE TOLERANCE TEST (GTT) January 12, 2014 INSTRUCTIONS MEDICATIONS ADMINISTERED No Known Medications [...]
--- OUTSIDE RECORDS SUMMARY | 2019-08-12 20:14 | XMS REPORT ---
Author Author Bridgett TORRES [facility] Address [address] [place] [address] Care Team Providers Care Audit Consultant Name Role Phone ESTEFANIA TORRES Unavailable PROBLEMS Type Condition ICD9-CM Code TZB43-WD Code Onset Dates Condition S tatus SNOMED Code Problem Migraine headache G43.909 Active 37 440243 Problem Mixed hyperlipidemia E78.2 Active [id number] ALLERGIES No Information ENCOUNTERS Encounter Location Date Diagnosis [facility] [address] [id number] [address] [place] [address] Feb, Mixed hyperlipidemia E78.2 ; Palpitations R00.2 and Abnormal thyroid blood test R94.6 [facility] [address] [facility] [id number] [address] [place] [address] Dec, [facility] [address] [facility] [id number] [address] [place] [address] Dec, [facility] [address] [place] [id number] [address] [place] [address] Nov, Exercise counseling Z71.82 [facility] [address] [id number] [address] [place] [address] Nov, Impetigo L01.00 and Morbid o besity E66.01 [facility] [address] [facility] [id number] [address] [place] [address] Nov, Exercise counseling Z71.82 [facility] [address] [place] [id number] [address] [place] [address] October, Exercise counseling Z71.82 [facility] [address] [id number] [address] [place] [address] October, Exercise counseling Z71.82 [facility] [address] [facility] [id number] [address] [place] [address] Sep, Mixed hyperlipidemia E78.2 ; Weight loss counseling, encounter for Z71.3 ; 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 and Morbid obesity E66.01 [facility] [address] [facility] [id number] [address] [place] [address] Sep, Exercise counseling Z71.82 [place] [address] [facility] [id number] [address] [place] [address] Sep, Exercise counseling Z71.82 [place] [address] [facility] [id number] [place] [address] Sep, Exercise counseling Z71.82 [place] [address] [place] [address] Sep, Exercise counseling Z71.82 [place] [address] [address] Aug, Screening for diabetes melli tus Z13.1 [place] [address] [address] Aug, Screening for diabetes melli tus Z13.1 [place] [address] [place] [id number] [address] [place] [address] Aug, Exercise counseling Z71.82 [place] [address] [address] Aug, Encounter for initial prescr iption of contraceptive pills Z30.011 ; Contraception management Z30.9 ; Contraceptive education Z30.09 ; Mixed hyperlipidemia E78.2 ; Weight loss counseling, encounter for Z71.3 ; Screening for diabetes mellitus Z13.1 ; Screening for thyroid disorder Z13.29 ; History of anemia Z86.2 and Morbid obesity E66.01 [facility] [address] [facility] [id number] [address] [place] [address] October, Seasonal allergic rhinitis, unspecified trigger J30.2 and BMI 40.0-44.9, adult Z68.41 [facility] [address] [place] [address] Sep, 2018 Pelvic pain R10.2 ; Chronic GERD K21.9 and BMI 40.0-44.9, adult Z68.41 [place] [address] [place] [id number] [address] [place] [address] Jul, [facility] [place] [address] [address] Apr, Sore throat J02.9 ; Acute re current streptococcal tonsillitis J03.01 and BMI 40.0-44.9, adult Z68.41 [facility] [place] [address] [id number] [place] [address] Mar, Sore throat J02.9 and Acute non-recurrent streptococcal tonsillitis J03.00 [place] [id number] [address] [place] [address] Feb, [facility] [address] [id number] [id number] Jan, Anxiety and depression F41.8 [facility] [id number] [place] [id number] Dec, [place] [id number] [address] [place] [address] Nov, [place] [address] [place] [id number] [place] [address] Jun, Normal in multigra sonny Z34.80 and First trimester Z33.[address] [address] Jun, Slow transit constipation K5 9.01 and Ota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 ear H92.01 [place] [address] [place] [address] May, [facility] [address] [id number] [address] [place] [address] May, Late menses N91.0 and Acute suppurative otitis media of left ear without spontaneous rupture of tympanic membrane, recurrence not specified H66.002 [facility] [address] [address] [id number] [address] [place] [address] May, [facility] [id number] [place] [address] Apr, [facility] [address] [facility] [id number] [address] [place] [address] Apr, Vaginal discharge N89.8 and Vaginal yeast infection B37.3 [place] [address] [place] [id number] [place] [address] Mar, [facility] [address] [address] Feb, [facility] [address] [id number] [place] [address] Feb, [facility] [address] [address] 15 Feb, 2016 Abnormal cholesterol test E7 8.9 [place] [address] [address] 14 Feb, 2016 History of UTI Z87.440 ; Mix ed hyperlipidemia E78.2 and Abnormal thyroid blood test R94.6 [facility] [address] [place] [address] Jan, [place] [address] [place] [id number] [place] [address] Jan, [place] [address] [address] Jan, Chest pain, unspecified type R07.9 ; Palpitations R00.2 ; Hyperlipidemia, unspecified hyperlipidemia type E78.5 and Dyspnea, unspecified type R06.00 [place] [address] [place] [address] [place] [address] Jan, [facility] [address] [address] Dec, [facility] [id number] [place] [address] Dec, Upper respiratory tract infe ction, unspecified type J06.9 [place] [address] [address] Dec, Major depressive disorder, s kelly episode, unspecified F32.9 and Panic attacks F41.0 [place] [address] [address] Nov, History of anemia Z86.2 ; Ab normal thyroid blood test R94.6 ; Mixed hyperlipidemia E78.2 ; Migraine headache G43.909 and Acute maxillary sinusitis, recurrence not specified J01.00 [place] [address] [address] Nov, 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 898 ; Pain in left knee M25.562 and Pain in right knee M25.561 [place] [address] [address] Sep, Pelvic pain in female 625.9 [place] [address] [address] Sep, Pelvic pain R10.2 ; Galactor shahriar in female N64.3 ; Knee pain, left M25.562 and Knee pain, right M25.561 [facility] [address] [address] 17 Aug, 2015 Cough R05 and Laceration of thumb, left S61.012A [place] [address] [address] 09 Aug, 2015 Cough R05 ; History of UTI Z 87.440 and Contraception management Z30.9 [place] [address] [address] 02 Aug, 2015 History of UTI Z87.440 and I rregular menses N92.6 [place] [address] [address] 18 Jul, 2015 Leukopenia D72.819 and Neutr openia D70.9 [place] [address] [address] 18 Jul, 2015 Leukopenia D72.819 and Neutr openia D70.9 [place] [address] [address] 17 Jul, 2015 Migraine headache G43.909 ; Heart burn R12 and History of long-term use of multiple prescription drugs Z92.29 [facility] [address] [address] 15 Jul, 2015 Vaginal discharge N89.8 ; Hi gh risk sexual behavior Z72.51 ; Unprotected sex Z72.51 ; Acute upper respiratory infection, unspecified J06.9 and Other viral agents as the cause of diseases classified elsewhere B97.89 [place] [address] [address] 04 Jul, 2015 Sore throat J02.9 ; Sinusiti s J32.9 and Fever R50.9 [place] [address] [address] Jun, Migraine headache G43.909 an d Heart burn R12 [place] [address] [address] 14 Jun, 2015 [place] [address] [address] 07 Jun, 2015 [place] [address] [address] 06 Jun, 2015 Evaluation regarding contrac eption options Z30.09 ; Encounter for Depo-Provera contraception Z30.42 ; 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 269A [facility] [address] [address] May, Sore throat J02.9 [place] [address] [address] 24 Feb, 2015 Pelvic pain in female 625.9 and Menorrhagia 626.2 [place] [address] [address] Dec, Diarrhea 787.91 [place] [address] [address] Dec, Pelvic pain in female 625.9 and Ganglion cyst of wrist 727.41 [place] [address] [address] Nov, Eczema 692.9 [place] [address] [address] 12 Nov, 2014 [facility] [place] [facility] [address] [id number] [address] [place] [address], [place] [address] 14 Sep, 2014 [facility] [address] [id number] [address] [place] [address], [place] [address] Sep, [facility] [address] [id number] [address] [place] [address], [place] [address] Jul, [facility] [address] [id number] [address] [place] [address], [place] [address] Jul, [facility] [address] [id number] [address] [place] [address], [place] [address] Jun, [facility] [address] [id number] [address] [place] [address], [place] [address] Jun, [facility] [address] [id number] [address] [place] [address], [place] [address] Jun, [facility] [address] [id number] [address] [place] [address], [place] [address] Jun, [facility] [address] [id number] [address] [place] [address], [place] [address] Jun, [facility] [address] [id number] [address] [place] [address], [place] [address] Jun, [facility] [address] [id number] [address] [place] [address], [place] [address] Jun, [facility] [address] [id number] [address] [place] [address], [place] [address] Jun, [facility] [address] [id number] [address] [place] [address], [place] [address] May, [facility] [address] [id number] [address] [place] [address], [place] [address] May, [facility] [address] [id number] [address] [place] [address], [place] [address] May, [facility] [address] [id number] [address] [place] [address], [place] [address] May, [facility] [place] [facility] [address] [id number] [address] [place] [address], [place] [address] Apr, [facility] [place] [facility] [address] [id number] [address] [place] [address], [place] [address] Apr, [facility] [place] [facility] [address] [id number] [address] [place] [address], [place] [address] Apr, [facility] [place] [facility] [address] [id number] [address] [place] [address], [place] [address] Apr, [facility] [place] [facility] [address] [id number] [address] [place] [address], [place] [address] Apr, [facility] [place] [facility] [address] [id number] [address] [place] [address], [place] [address] Apr, [facility] [place] [facility] [address] [id number] [address] [place] [address], [place] [address] Feb, [facility] [place] [facility] [address] [id number] [address] [place] [address], [place] [address] 29 Feb, 2014 [facility] [place] [facility] [address] [id number] [address] [place] [address], [place] [address] Feb, [facility] [place] [facility] [address] [id number] [address] [place] [address], [place] [address] Feb, [facility] [place] [facility] [address] [id number] [address] [place] [address], [place] [address] Feb, 2013 [facility] [place] [facility] [address] [id number] [address] [place] [address], [place] [address] 26 Feb, 2013 [facility] [place] [facility] [address] [id number] [address] [place] [address], [place] [address] 25 Feb, 2014 [facility] [place] [facility] [address] [id number] [address] [place] [address], [place] [address] 25 Feb, 2013 [facility] [place] [facility] [address] [id number] [address] [place] [address], [place] [address] 23 Feb, 2013 [facility] [place] [facility] [address] [id number] [facility] [place] [address] 23 Feb, 2013 [facility] [address] [id number] [facility] [place] [address] 22 Feb, 2013 [facility] [address] [id number] [facility] [place] [address] 22 Feb, 2013 [facility] [address] [id number] [address] [place] [address], [place] [address] 19 Feb, 2013 [facility] [address] [id number] [address] [place] [address], [place] [address] 19 Feb, 2013 [facility] [address] [id number] [address] [place] [address], [place] [address] 12 Feb, 2013 [facility] [address] [id number] [address] [place] [address], [place] [address] 10 Feb, 2013 [facility] [address] [id number] [address] [place] [address], [place] [address] 10 Feb, 2013 [facility] [address] [id number] [address] [place] [address], [place] [address] 04 Feb, 2013 [facility] [address] [id number] [address] [place] [address], [place] [address] 03 Feb, 2013 [facility] [address] [id number] [address] [place] [address], [place] [address] 03 Feb, 2013 [facility] [address] [id number] [address] [place] [address], [place] [address] Jan, [facility] [address] [id number] [address] [place] [address], [place] [address] Jan, [facility] [address] [id number] [address] [place] [address], [place] [address] Jan, [facility] [address] [id number] [address] [place] [address], [place] [address] Jan, [facility] [address] [id number] [address] [place] [address], [place] [address] Jan, [facility] [place] [facility] [address] [id number] [address] [place] [address], [place] [address] Jan, [facility] [place] [facility] [address] [id number] [address] [place] [address], [place] [address] Jan, [facility] [address] [id number] [address] [place] [address], [place] [address] Jan, [facility] [place] [facility] [address] [id number] [address] [place] [address], [place] [address] Dec, [facility] [address] [id number] [address] [place] [address], [place] [address] Dec, [facility] [address] [id number] [address] [place] [address], [place] [address] Dec, [facility] [address] [id number] [address] [place] [address], [place] [address] Dec, [facility] [address] [id number] [address] [place] [address], [place] [address] Dec, [facility] [address] [id number] [address] [place] [address], [place] [address] Dec, [facility] [address] [id number] [address] [place] [address], [place] [address] Dec, [facility] [address] [id number] [address] [place] [address], [place] [address] Dec, [facility] [place] [facility] [address] [id number] [address] [place] [address], [place] [address] Dec, [facility] [place] [facility] [address] [id number] [address] [place] [address], [place] [address] Dec, [facility] [place] [facility] [address] [id number] [address] [place] [address], [place] [address] Dec, [facility] [place] [facility] [address] [id number] [address] [place] [address], [place] [address] Dec, [facility] [place] [facility] [address] [id number] [address] [place] [address], [place] [address] Nov, [facility] [address] [id number] [address] [place] [address], [place] [address] Nov, [facility] [address] [id number] [address] [place] [address], [place] [address] Nov, [facility] [address] [id number] [address] [place] [address], [place] [address] Nov, [facility] [address] [id number] [address] [place] [address], [place] [address] Nov, [facility] [address] [id number] [address] [place] [address], [place] [address] Nov, [facility] [address] [id number] [address] [place] [address], [place] [address] Nov, [facility] [address] [id number] [address] [place] [address], [place] [address] Nov, [facility] [address] [id number] [address] [place] [address], [place] [address] Nov, [facility] [address] [id number] [address] [place] [address], [place] [address] Nov, [facility] [address] [id number] [address] [place] [address], [place] [address] October, [facility] [address] [id number] [address] [place] [address], [place] [address] October, [facility] [address] [id number] [address] [place] [address], [place] [address] October, [facility] [place] [facility] [address] [id number] [address] [place] [address], [place] [address] October, [facility] [place] [facility] [address] [id number] [address] [place] [address], [place] [address] October, [facility] [address] [id number] [address] [place] [address], [place] [address] October, [facility] [place] [facility] [address] [id number] [facility] [place] [address] Sep, [facility] [address] [id number] [address] [place] [address], [place] [address] Sep, [facility] [address] [id number] [address] [place] [address], [place] [address] Sep, [facility] [address] [id number] [address] [place] [address], [place] [address] Sep, [facility] [address] [id number] [address] [place] [address], [place] [id number] Sep, [facility] [address] [id number] [address] [place] [address], [place] [address] Sep, [facility] [address] [id number] [address] [place] [address], [place] [id number] Aug, [facility] [address] [id number] [address] [place] [address], [place] [id number] Aug, [facility] [address] [id number] [address] [place] [address], [place] [id number] Aug, [facility] [address] [id number] [address] [place] [address], [place] [address] Aug, [facility] [address] [id number] [address] [place] [address], [place] [id number] Aug, [facility] [address] [id number] [address] [place] [address], [place] [id number] Jun, [facility] [address] [id number] [address] [place] [address], [place] [id number] Jun, [facility] [address] [id number] [address] [place] [address], [place] [id number] Jun, [facility] [address] [id number] [address] [place] [address], [place] [address] Jun, [facility] [address] [id number] [address] [place] [address], [place] [address] Jun, [facility] [address] [facility] [id number] [address] [place] [id number] Jun, [facility] [address] [facility] [id number] [address] [place] [id number] Jun, [facility] [address] [facility] [id number] [address] [place] [id number] Mar, [facility] [address] [facility] [id number] [address] [place] [id number] Mar, IMMUNIZATIONS No Known Immunizations SOCIAL HISTORY Never Assessed REASON FOR VISIT PLAN OF CARE VITAL SIGNS Height 65 in 2013-12-13 Weight 245.25 lbs 2013-12-13 Blood pressure systolic 130 mmHg 2013-12-13 Blood pressure diastolic 74 mmHg 2013-12-13 MEDICATIONS Unknown Medications RESULTS No Results PROCEDURES Procedure Date Ordered Result Body Site URINE-NO MICRO December 13, 2013 INSTRUCTIONS MEDICATIONS ADMINISTERED No Known Medications [...]
--- OUTSIDE RECORDS SUMMARY | 2019-08-12 20:14 | XMS REPORT ---
Author Author Bridgett TORRES [facility] Address [address] [place] [address] Care Team Providers Care Transportation Aide Name Role Phone ESTEFANIA TORRES Unavailable PROBLEMS Type Condition ICD9-CM Code [id number] Code Onset Dates Condition S tatus SNOMED Code Problem Migraine headache G43.909 Active 37 452587 Problem Mixed hyperlipidemia E78.2 Active [id number] ALLERGIES No Information ENCOUNTERS Encounter Location Date Diagnosis [facility] [address] [id number] [address] [place] [address] Feb, Mixed hyperlipidemia E78.2 ; Palpitations R00.2 and Abnormal thyroid blood test R94.6 [facility] [address] [facility] [id number] [address] [place] [address] Dec, [facility] [address] [facility] [id number] [address] [place] [address] Dec, [facility] [address] [place] [id number] [address] [place] [address] Nov, Exercise counseling Z71.82 [facility] [address] [id number] [address] [place] [address] Nov, Impetigo L01.00 and Morbid o besity E66.01 [facility] [address] [facility] [id number] [address] [place] [address] Nov, Exercise counseling Z71.82 [facility] [address] [id number] [address] [place] [address] October, Exercise counseling Z71.82 [facility] [address] [id number] [address] [place] [address] October, Exercise counseling Z71.82 [facility] [address] [facility] [id number] [address] [place] [address] Sep, Mixed hyperlipidemia E78.2 ; Weight loss counseling, encounter for Z71.3 ; 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 and Morbid obesity E66.01 [facility] [address] [facility] [id number] [address] [place] [address] Sep, Exercise counseling Z71.82 [place] [address] [facility] [id number] [address] [place] [address] Sep, Exercise counseling Z71.82 [place] [address] [facility] [id number] [place] [address] Sep, Exercise counseling Z71.82 [place] [address] [place] [address] Sep, Exercise counseling Z71.82 [place] [address] [address] Aug, Screening for diabetes melli tus Z13.1 [place] [address] [address] Aug, Screening for diabetes melli tus Z13.1 [place] [address] [place] [id number] [address] [place] [address] Aug, Exercise counseling Z71.82 [place] [address] [address] Aug, Encounter for initial prescr iption of contraceptive pills Z30.011 ; Contraception management Z30.9 ; Contraceptive education Z30.09 ; Mixed hyperlipidemia E78.2 ; Weight loss counseling, encounter for Z71.3 ; Screening for diabetes mellitus Z13.1 ; Screening for thyroid disorder Z13.29 ; History of anemia Z86.2 and Morbid obesity E66.01 [facility] [address] [facility] [id number] [address] [place] [address] October, Seasonal allergic rhinitis, unspecified trigger J30.2 and BMI 40.0-44.9, adult Z68.41 [facility] [address] [place] [address] Sep, 2018 Pelvic pain R10.2 ; Chronic GERD K21.9 and BMI 40.0-44.9, adult Z68.41 [place] [address] [place] [id number] [address] [place] [address] Jul, [facility] [place] [address] [address] Apr, Sore throat J02.9 ; Acute re current streptococcal tonsillitis J03.01 and BMI 40.0-44.9, adult Z68.41 [facility] [place] [address] [place] [id number] [address] [place] [address] Mar, Sore throat J02.9 and Acute non-recurrent streptococcal tonsillitis J03.00 [place] [id number] [address] [place] [address] Feb, [facility] [address] [id number] [id number] Jan, Anxiety and depression F41.8 [facility] [id number] [place] [id number] Dec, [place] [id number] [place] [address] Nov, [place] [address] [place] [id number] [address] [place] [address] Jun, Normal in multigra sonny Z34.80 and First trimester Z33.[address] [address] Jun, Slow transit constipation K5 9.01 and Ota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 ear H92.01 [place] [address] [place] [address] May, [facility] [address] [id number] [address] [place] [address] May, Late menses N91.0 and Acute suppurative otitis media of left ear without spontaneous rupture of tympanic membrane, recurrence not specified H66.002 [facility] [address] [place] [id number] [address] [place] [address] May, [facility] [address] [id number] [address] [place] [address] Apr, [facility] [address] [facility] [id number] [address] [place] [address] Apr, Vaginal discharge N89.8 and Vaginal yeast infection B37.3 [place] [address] [place] [id number] [place] [address] Mar, [facility] [address] [address] Feb, [facility] [address] [place] [id number] [address] [place] [address] Feb, [facility] [address] [address] 15 Feb, 2016 Abnormal cholesterol test E7 8.9 [place] [address] [address] 14 Feb, 2016 History of UTI Z87.440 ; Mix ed hyperlipidemia E78.2 and Abnormal thyroid blood test R94.6 [facility] [address] [place] [address] Jan, [place] [address] [place] [id number] [place] [address] Jan, [place] [address] [address] Jan, Chest pain, unspecified type R07.9 ; Palpitations R00.2 ; Hyperlipidemia, unspecified hyperlipidemia type E78.5 and Dyspnea, unspecified type R06.00 [place] [address] [place] [address] [place] [address] Jan, [facility] [address] [address] Dec, [facility] [address] [id number] [address] [place] [address] Dec, Upper respiratory tract infe ction, unspecified type J06.9 [place] [address] [address] Dec, Major depressive disorder, s kelly episode, unspecified F32.9 and Panic attacks F41.0 [place] [address] [address] Nov, History of anemia Z86.2 ; Ab normal thyroid blood test R94.6 ; Mixed hyperlipidemia E78.2 ; Migraine headache G43.909 and Acute maxillary sinusitis, recurrence not specified J01.00 [place] [address] [address] Nov, 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 898 ; Pain in left knee M25.562 and Pain in right knee M25.561 [place] [address] [address] Sep, Pelvic pain in female 625.9 [place] [address] [address] Sep, Pelvic pain R10.2 ; Galactor shahriar in female N64.3 ; Knee pain, left M25.562 and Knee pain, right M25.561 [facility] [address] [address] 17 Aug, 2015 Cough R05 and Laceration of thumb, left S61.012A [place] [address] [address] 09 Aug, 2015 Cough R05 ; History of UTI Z 87.440 and Contraception management Z30.9 [place] [address] [address] 02 Aug, 2015 History of UTI Z87.440 and I rregular menses N92.6 [place] [address] [address] 18 Jul, 2015 Leukopenia D72.819 and Neutr openia D70.9 [place] [address] [address] 18 Jul, 2015 Leukopenia D72.819 and Neutr openia D70.9 [place] [address] [address] 17 Jul, 2015 Migraine headache G43.909 ; Heart burn R12 and History of long-term use of multiple prescription drugs Z92.29 [facility] [address] [address] 15 Jul, 2015 Vaginal discharge N89.8 ; Hi gh risk sexual behavior Z72.51 ; Unprotected sex Z72.51 ; Acute upper respiratory infection, unspecified J06.9 and Other viral agents as the cause of diseases classified elsewhere B97.89 [place] [address] [address] 04 Jul, 2015 Sore throat J02.9 ; Sinusiti s J32.9 and Fever R50.9 [place] [address] [address] Jun, Migraine headache G43.909 an d Heart burn R12 [place] [address] [address] 14 Jun, 2015 [place] [address] [address] 07 Jun, 2015 [place] [address] [address] 06 Jun, 2015 Evaluation regarding contrac eption options Z30.09 ; Encounter for Depo-Provera contraception Z30.42 ; Encntr for rn gynecology exam (general) (routine) w/o abn findings Z01.419 ; Pelvic pain R10.2 ; Migraine headache G43.909 and Vaginal discharge N89.8 [place] [address] [address] 10 May, 2015 Overweight E66.3 ; Encounter for immunization Z23 ; Pain of right thumb M79.644 and Headache R51 [facility] [address] [address] 03 May, 2015 Insect bite of shoulder S40. 269A [facility] [address] [address] May, Sore throat J02.9 [place] [address] [address] 24 Feb, 2015 Pelvic pain in female 625.9 and Menorrhagia 626.2 [place] [address] [address] Dec, Diarrhea 787.91 [place] [address] [address] Dec, Pelvic pain in female 625.9 and Ganglion cyst of wrist 727.41 [place] [address] [address] Nov, Eczema 692.9 [place] [address] [address] 12 Nov, 2014 [facility] [place] [facility] [address] [id number] [address] [place] [address], [place] [address] 14 Sep, 2014 [facility] [address] [id number] [address] [place] [address], [place] [address] Sep, [facility] [address] [id number] [address] [place] [address], [place] [address] Jul, [facility] [address] [id number] [address] [place] [address], [place] [address] Jul, [facility] [address] [id number] [address] [place] [address], [place] [address] Jun, [facility] [address] [id number] [address] [place] [address], [place] [address] Jun, [facility] [address] [id number] [address] [place] [address], [place] [address] Jun, [facility] [address] [id number] [address] [place] [address], [place] [address] Jun, [facility] [address] [id number] [address] [place] [address], [place] [address] Jun, [facility] [address] [id number] [address] [place] [address], [place] [address] Jun, [facility] [address] [id number] [address] [place] [address], [place] [address] Jun, [facility] [address] [id number] [address] [place] [address], [place] [address] Jun, [facility] [address] [id number] [address] [place] [address], [place] [address] May, [facility] [address] [id number] [address] [place] [address], [place] [address] May, [facility] [address] [id number] [address] [place] [address], [place] [address] May, [facility] [address] [id number] [address] [place] [address], [place] [address] May, [facility] [place] [facility] [address] [id number] [address] [place] [address], [place] [address] Apr, [facility] [place] [facility] [address] [id number] [address] [place] [address], [place] [address] Apr, [facility] [place] [facility] [address] [id number] [address] [place] [address], [place] [address] Apr, [facility] [place] [facility] [address] [id number] [address] [place] [address], [place] [address] Apr, [facility] [place] [facility] [address] [id number] [address] [place] [address], [place] [address] Apr, [facility] [place] [facility] [address] [id number] [address] [place] [address], [place] [address] Apr, [facility] [place] [facility] [address] [id number] [address] [place] [address], [place] [address] Feb, [facility] [place] [facility] [address] [id number] [address] [place] [address], [place] [address] 29 Feb, 2014 [facility] [place] [facility] [address] [id number] [address] [place] [address], [place] [address] Feb, [facility] [place] [facility] [address] [id number] [address] [place] [address], [place] [address] Feb, [facility] [place] [facility] [address] [id number] [address] [place] [address], [place] [address] Feb, 2013 [facility] [place] [facility] [address] [id number] [address] [place] [address], [place] [address] 26 Feb, 2013 [facility] [place] [facility] [address] [id number] [address] [place] [address], [place] [address] 25 Feb, 2014 [facility] [place] [facility] [address] [id number] [address] [place] [address], [place] [address] 25 Feb, 2013 [facility] [place] [facility] [address] [id number] [address] [place] [address], [place] [address] 23 Feb, 2013 [facility] [place] [facility] [address] [id number] [facility] [place] [address] 23 Feb, 2013 [facility] [address] [id number] [facility] [place] [address] 22 Feb, 2013 [facility] [address] [id number] [facility] [place] [address] 22 Feb, 2013 [facility] [address] [id number] [address] [place] [address], [place] [address] 19 Feb, 2013 [facility] [address] [id number] [address] [place] [address], [place] [address] 19 Feb, 2013 [facility] [address] [id number] [address] [place] [address], [place] [address] 12 Feb, 2013 [facility] [address] [id number] [address] [place] [address], [place] [address] 10 Feb, 2013 [facility] [address] [id number] [address] [place] [address], [place] [address] 10 Feb, 2013 [facility] [address] [id number] [address] [place] [address], [place] [address] 04 Feb, 2013 [facility] [address] [id number] [address] [place] [address], [place] [address] 03 Feb, 2013 [facility] [address] [id number] [address] [place] [address], [place] [address] 03 Feb, 2013 [facility] [address] [id number] [address] [place] [address], [place] [address] Jan, [facility] [address] [id number] [address] [place] [address], [place] [address] Jan, [facility] [address] [id number] [address] [place] [address], [place] [address] Jan, [facility] [address] [id number] [address] [place] [address], [place] [address] Jan, [facility] [address] [id number] [address] [place] [address], [place] [address] Jan, [facility] [place] [facility] [address] [id number] [address] [place] [address], [place] [address] Jan, [facility] [place] [facility] [address] [id number] [address] [place] [address], [place] [address] Jan, [facility] [address] [id number] [address] [place] [address], [place] [address] Jan, [facility] [place] [facility] [address] [id number] [address] [place] [address], [place] [address] Dec, [facility] [address] [id number] [address] [place] [address], [place] [address] Dec, [facility] [address] [id number] [address] [place] [address], [place] [address] Dec, [facility] [address] [id number] [address] [place] [address], [place] [address] Dec, [facility] [address] [id number] [address] [place] [address], [place] [address] Dec, [facility] [address] [id number] [address] [place] [address], [place] [address] Dec, [facility] [address] [id number] [address] [place] [address], [place] [address] Dec, [facility] [address] [id number] [address] [place] [address], [place] [address] Dec, [facility] [place] [facility] [address] [id number] [address] [place] [address], [place] [address] Dec, [facility] [place] [facility] [address] [id number] [address] [place] [address], [place] [address] Dec, [facility] [place] [facility] [address] [id number] [address] [place] [address], [place] [address] Dec, [facility] [place] [facility] [address] [id number] [address] [place] [address], [place] [address] Dec, [facility] [place] [facility] [address] [id number] [address] [place] [address], [place] [address] Nov, [facility] [address] [id number] [address] [place] [address], [place] [address] Nov, [facility] [address] [id number] [address] [place] [address], [place] [address] Nov, [facility] [address] [id number] [address] [place] [address], [place] [address] Nov, [facility] [address] [id number] [address] [place] [address], [place] [address] Nov, [facility] [address] [id number] [address] [place] [address], [place] [address] Nov, [facility] [address] [id number] [address] [place] [address], [place] [address] Nov, [facility] [address] [id number] [address] [place] [address], [place] [address] Nov, [facility] [address] [id number] [address] [place] [address], [place] [address] Nov, [facility] [address] [id number] [address] [place] [address], [place] [address] Nov, [facility] [address] [id number] [address] [place] [address], [place] [address] October, [facility] [address] [id number] [address] [place] [address], [place] [address] October, [facility] [address] [id number] [address] [place] [address], [place] [address] October, [facility] [place] [facility] [address] [id number] [address] [place] [address], [place] [address] October, [facility] [place] [facility] [address] [id number] [address] [place] [address], [place] [address] October, [facility] [address] [id number] [address] [place] [address], [place] [address] October, [facility] [place] [facility] [address] [id number] [facility] [place] [address] Sep, [facility] [address] [id number] [address] [place] [address], [place] [address] Sep, [facility] [address] [id number] [address] [place] [address], [place] [address] Sep, [facility] [address] [id number] [address] [place] [address], [place] [address] Sep, [facility] [address] [id number] [address] [place] [address], [place] [address] Sep, [facility] [address] [id number] [address] [place] [address], [place] [address] Sep, [facility] [address] [id number] [address] [place] [address], [place] [address] Aug, [facility] [address] [id number] [address] [place] [address], [place] [address] Aug, [facility] [address] [id number] [address] [place] [address], [place] [address] Aug, [facility] [address] [id number] [address] [place] [address], [place] [address] Aug, [facility] [address] [id number] [address] [place] [address], [place] [address] Aug, [facility] [address] [id number] [address] [place] [address], [place] [address] Jun, [facility] [address] [id number] [address] [place] [address], [place] [address] Jun, [facility] [address] [id number] [address] [place] [address], [place] [address] Jun, [facility] [address] [id number] [address] [place] [address], [place] [address] Jun, [facility] [address] [id number] [address] [place] [address], [place] [address] Jun, [facility] [address] [facility] [id number] [address] [place] [id number] Jun, [facility] [address] [facility] [id number] [address] [place] [id number] Jun, [facility] [address] [facility] [id number] [address] [place] [id number] Mar, [facility] [address] [facility] [id number] [address] [place] [id number] Mar, IMMUNIZATIONS No Known Immunizations SOCIAL HISTORY [...]
--- OUTSIDE RECORDS SUMMARY | 2019-08-12 20:15 | XMS REPORT ---
Author [facility] Address [address] [place] [address] Care Team Providers Care Consulting Services Manager Name Role Phone ESTEFANIA TORRES Unavailable PROBLEMS Type Condition ICD9-CM Code PIY58-DQ Code Onset Dates Condition S tatus SNOMED Code Problem Migraine headache G43.909 Active 37 904603 Problem Mixed hyperlipidemia E78.2 Active [id number] ALLERGIES No Information ENCOUNTERS Encounter Location Date Diagnosis [facility] [address] [id number] [address] [place] [address] Feb, Mixed hyperlipidemia E78.2 ; Palpitations R00.2 and Abnormal thyroid blood test R94.6 [facility] [address] [facility] [id number] [address] [place] [address] Dec, [facility] [address] [facility] [id number] [address] [place] [address] Dec, [facility] [address] [id number] [address] [place] [address] Nov, Exercise counseling Z71.82 [facility] [address] [id number] [address] [place] [address] Nov, Impetigo L01.00 and Morbid o besity E66.01 [facility] [address] [facility] [id number] [address] [place] [address] Nov, Exercise counseling Z71.82 [facility] [address] [id number] [address] [place] [address] October, Exercise counseling Z71.82 [facility] [address] [id number] [address] [place] [address] October, Exercise counseling Z71.82 [facility] [address] [facility] [id number] [address] [place] [address] Sep, Mixed hyperlipidemia E78.2 ; Weight loss counseling, encounter for Z71.3 ; 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 and Morbid obesity E66.01 [facility] [address] [facility] [id number] [address] [place] [address] Sep, Exercise counseling Z71.82 [place] [address] [facility] [id number] [address] [place] [address] Sep, Exercise counseling Z71.82 [place] [address] [facility] [id number] [place] [address] Sep, Exercise counseling Z71.82 [place] [address] [place] [address] Sep, Exercise counseling Z71.82 [place] [address] [address] Aug, Screening for diabetes melli tus Z13.1 [place] [address] [address] Aug, Screening for diabetes melli tus Z13.1 [place] [address] [place] [id number] [address] [place] [address] Aug, Exercise counseling Z71.82 [place] [address] [address] Aug, Encounter for initial prescr iption of contraceptive pills Z30.011 ; Contraception management Z30.9 ; Contraceptive education Z30.09 ; Mixed hyperlipidemia E78.2 ; Weight loss counseling, encounter for Z71.3 ; Screening for diabetes mellitus Z13.1 ; Screening for thyroid disorder Z13.29 ; History of anemia Z86.2 and Morbid obesity E66.01 [facility] [address] [facility] [id number] [address] [place] [address] October, Seasonal allergic rhinitis, unspecified trigger J30.2 and BMI 40.0-44.9, adult Z68.41 [facility] [address] [place] [address] Sep, 2018 Pelvic pain R10.2 ; Chronic GERD K21.9 and BMI 40.0-44.9, adult Z68.41 [place] [address] [place] [place] [id number] [address] [place] [address] Jul, [facility] [place] [address] [address] Apr, Sore throat J02.9 ; Acute re current streptococcal tonsillitis J03.01 and BMI 40.0-44.9, adult Z68.41 [facility] [place] [address] [id number] [place] [address] Mar, Sore throat J02.9 and Acute non-recurrent streptococcal tonsillitis J03.00 [place] [id number] [address] [place] [address] Feb, [facility] [address] [id number] [id number] Jan, Anxiety and depression F41.[address] [facility] [id number] [place] [id number] Dec, [place] [id number] [address] [place] [address] Nov, [place] [address] [id number] [place] [address] Jun, Normal in multigra sonny Z34.80 and First trimester Z33.[address] [address] Jun, Slow transit constipation K5 9.01 and Ota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 ear H92.01 [place] [address] [place] [address] May, [facility] [address] [id number] [address] [place] [address] May, Late menses N91.0 and Acute suppurative otitis media of left ear without spontaneous rupture of tympanic membrane, recurrence not specified H66.002 [facility] [address] [id number] [address] [place] [address] May, [facility] [id number] [place] [address] Apr, [facility] [address] [facility] [id number] [address] [place] [address] Apr, Vaginal discharge N89.8 and Vaginal yeast infection B37.3 [place] [address] [id number] [place] [address] Mar, [facility] [address] [address] Feb, [facility] [address] [id number] [place] [address] Feb, [facility] [address] [address] 15 Feb, 2016 Abnormal cholesterol test E7 8.9 [place] [address] [address] 14 Feb, 2016 History of UTI Z87.440 ; Mix ed hyperlipidemia E78.2 and Abnormal thyroid blood test R94.6 [facility] [address] [place] [address] Jan, [place] [address] [id number] [place] [address] Jan, [place] [address] [address] Jan, Chest pain, unspecified type R07.9 ; Palpitations R00.2 ; Hyperlipidemia, unspecified hyperlipidemia type E78.5 and Dyspnea, unspecified type R06.00 [place] [address] [place] [address] [place] [address] Jan, [facility] [address] [address] Dec, [facility] [address] [id number] [place] [address] Dec, Upper respiratory tract infe ction, unspecified type J06.9 [place] [address] [address] Dec, Major depressive disorder, s kelly episode, unspecified F32.9 and Panic attacks F41.0 [place] [address] [address] Nov, History of anemia Z86.2 ; Ab normal thyroid blood test R94.6 ; Mixed hyperlipidemia E78.2 ; Migraine headache G43.909 and Acute maxillary sinusitis, recurrence not specified J01.00 [place] [address] [address] Nov, 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 898 ; Pain in left knee M25.562 and Pain in right knee M25.561 [place] [address] [address] Sep, Pelvic pain in female 625.9 [place] [address] [address] Sep, Pelvic pain R10.2 ; Galactor shahriar in female N64.3 ; Knee pain, left M25.562 and Knee pain, right M25.561 [facility] [address] [address] 17 Aug, 2015 Cough R05 and Laceration of thumb, left S61.012A [place] [address] [address] 09 Aug, 2015 Cough R05 ; History of UTI Z 87.440 and Contraception management Z30.9 [place] [address] [address] 02 Aug, 2015 History of UTI Z87.440 and I rregular menses N92.6 [place] [address] [address] 18 Jul, 2015 Leukopenia D72.819 and Neutr openia D70.9 [place] [address] [address] 18 Jul, 2015 Leukopenia D72.819 and Neutr openia D70.9 [place] [address] [address] 17 Jul, 2015 Migraine headache G43.909 ; Heart burn R12 and History of long-term use of multiple prescription drugs Z92.29 [facility] [address] [address] 15 Jul, 2015 Vaginal discharge N89.8 ; Hi gh risk sexual behavior Z72.51 ; Unprotected sex Z72.51 ; Acute upper respiratory infection, unspecified J06.9 and Other viral agents as the cause of diseases classified elsewhere B97.89 [place] [address] [address] 04 Jul, 2015 Sore throat J02.9 ; Sinusiti s J32.9 and Fever R50.9 [place] [address] [address] Jun, Migraine headache G43.909 an d Heart burn R12 [place] [address] [address] 14 Jun, 2015 [place] [address] [address] 07 Jun, 2015 [place] [address] [address] 06 Jun, 2015 Evaluation regarding contrac eption options Z30.09 ; Encounter for Depo-Provera contraception Z30.42 ; 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 269A [facility] [address] [address] May, Sore throat J02.9 [place] [address] [address] 24 Feb, 2015 Pelvic pain in female 625.9 and Menorrhagia 626.2 [place] [address] [address] Dec, Diarrhea 787.91 [place] [address] [address] Dec, Pelvic pain in female 625.9 and Ganglion cyst of wrist 727.41 [place] [address] [address] Nov, Eczema 692.9 [place] [address] [address] 12 Nov, 2014 [facility] [place] [facility] [address] [id number] [address] [place] [address], [place] [address] 14 Sep, 2014 [facility] [address] [id number] [address] [place] [address], [place] [address] Sep, [facility] [address] [id number] [address] [place] [address], [place] [address] Jul, [facility] [address] [id number] [address] [place] [address], [place] [address] Jul, [facility] [address] [id number] [address] [place] [address], [place] [address] Jun, [facility] [address] [id number] [address] [place] [address], [place] [address] Jun, [facility] [address] [id number] [address] [place] [address], [place] [address] Jun, [facility] [address] [id number] [address] [place] [address], [place] [address] Jun, [facility] [address] [id number] [address] [place] [address], [place] [address] Jun, [facility] [address] [id number] [address] [place] [address], [place] [address] Jun, [facility] [address] [id number] [address] [place] [address], [place] [address] Jun, [facility] [address] [id number] [address] [place] [address], [place] [address] Jun, [facility] [address] [id number] [address] [place] [address], [place] [address] May, [facility] [address] [id number] [address] [place] [address], [place] [address] May, [facility] [address] [id number] [address] [place] [address], [place] [address] May, [facility] [address] [id number] [address] [place] [address], [place] [address] May, [facility] [place] [facility] [address] [id number] [address] [place] [address], [place] [address] Apr, [facility] [place] [facility] [address] [id number] [address] [place] [address], [place] [address] Apr, [facility] [place] [facility] [address] [id number] [address] [place] [address], [place] [address] Apr, [facility] [place] [facility] [address] [id number] [address] [place] [address], [place] [address] Apr, [facility] [place] [facility] [address] [id number] [address] [place] [address], [place] [address] Apr, [facility] [place] [facility] [address] [id number] [address] [place] [address], [place] [address] Apr, [facility] [place] [facility] [address] [id number] [address] [place] [address], [place] [address] Feb, [facility] [place] [facility] [address] [id number] [address] [place] [address], [place] [address] 29 Feb, 2014 [facility] [place] [facility] [address] [id number] [address] [place] [address], [place] [address] Feb, [facility] [place] [facility] [address] [id number] [address] [place] [address], [place] [address] Feb, [facility] [place] [facility] [address] [id number] [address] [place] [address], [place] [address] Feb, 2013 [facility] [place] [facility] [address] [id number] [address] [place] [address], [place] [address] 26 Feb, 2013 [facility] [place] [facility] [address] [id number] [address] [place] [address], [place] [address] 25 Feb, 2014 [facility] [place] [facility] [address] [id number] [address] [place] [address], [place] [address] 25 Feb, 2013 [facility] [place] [facility] [address] [id number] [address] [place] [address], [place] [address] 23 Feb, 2013 [facility] [place] [facility] [address] [id number] [facility] [place] [address] 23 Feb, 2013 [facility] [address] [id number] [facility] [place] [address] 22 Feb, 2013 [facility] [address] [id number] [facility] [place] [address] 22 Feb, 2013 [facility] [address] [id number] [address] [place] [address], [place] [address] 19 Feb, 2013 [facility] [address] [id number] [address] [place] [address], [place] [address] 19 Feb, 2013 [facility] [address] [id number] [address] [place] [address], [place] [address] 12 Feb, 2013 [facility] [address] [id number] [address] [place] [address], [place] [address] 10 Feb, 2013 [facility] [address] [id number] [address] [place] [address], [place] [address] 10 Feb, 2013 [facility] [address] [id number] [address] [place] [address], [place] [address] 04 Feb, 2013 [facility] [address] [id number] [address] [place] [address], [place] [address] 03 Feb, 2013 [facility] [address] [id number] [address] [place] [address], [place] [address] 03 Feb, 2013 [facility] [address] [id number] [address] [place] [address], [place] [address] Jan, [facility] [address] [id number] [address] [place] [address], [place] [address] Jan, [facility] [address] [id number] [address] [place] [address], [place] [address] Jan, [facility] [address] [id number] [address] [place] [address], [place] [address] Jan, [facility] [address] [id number] [address] [place] [address], [place] [address] Jan, [facility] [place] [facility] [address] [id number] [address] [place] [address], [place] [address] Jan, [facility] [place] [facility] [address] [id number] [address] [place] [address], [place] [address] Jan, [facility] [address] [id number] [address] [place] [address], [place] [address] Jan, [facility] [place] [facility] [address] [id number] [address] [place] [address], [place] [address] Dec, [facility] [address] [id number] [address] [place] [address], [place] [address] Dec, [facility] [address] [id number] [address] [place] [address], [place] [address] Dec, [facility] [address] [id number] [address] [place] [address], [place] [address] Dec, [facility] [address] [id number] [address] [place] [address], [place] [address] Dec, [facility] [address] [id number] [address] [place] [address], [place] [address] Dec, [facility] [address] [id number] [address] [place] [address], [place] [address] Dec, [facility] [address] [id number] [address] [place] [address], [place] [address] Dec, [facility] [place] [facility] [address] [id number] [address] [place] [address], [place] [address] Dec, [facility] [place] [facility] [address] [id number] [address] [place] [address], [place] [address] Dec, [facility] [place] [facility] [address] [id number] [address] [place] [address], [place] [address] Dec, [facility] [place] [facility] [address] [id number] [address] [place] [address], [place] [address] Dec, [facility] [place] [facility] [address] [id number] [address] [place] [address], [place] [address] Nov, [facility] [address] [id number] [address] [place] [address], [place] [address] Nov, [facility] [address] [id number] [address] [place] [address], [place] [address] Nov, [facility] [address] [id number] [address] [place] [address], [place] [address] Nov, [facility] [address] [id number] [address] [place] [address], [place] [address] Nov, [facility] [address] [id number] [address] [place] [address], [place] [address] Nov, [facility] [address] [id number] [address] [place] [address], [place] [address] Nov, [facility] [address] [id number] [address] [place] [address], [place] [address] Nov, [facility] [address] [id number] [address] [place] [address], [place] [address] Nov, [facility] [address] [id number] [address] [place] [address], [place] [address] Nov, [facility] [address] [id number] [address] [place] [address], [place] [address] October, [facility] [address] [id number] [address] [place] [address], [place] [address] October, [facility] [address] [id number] [address] [place] [address], [place] [address] October, [facility] [place] [facility] [address] [id number] [address] [place] [address], [place] [address] October, [facility] [place] [facility] [address] [id number] [address] [place] [address], [place] [address] October, [facility] [address] [id number] [address] [place] [address], [place] [address] October, [facility] [place] [facility] [address] [id number] [facility] [place] [address] Sep, [facility] [address] [id number] [address] [place] [address], [place] [address] Sep, [facility] [address] [id number] [address] [place] [address], [place] [address] Sep, [facility] [address] [id number] [address] [place] [address], [place] [address] Sep, [facility] [address] [id number] [address] [place] [address], [place] [address] Sep, [facility] [address] [id number] [address] [place] [address], [place] [address] Sep, [facility] [address] [id number] [address] [place] [address], [place] [address] Aug, [facility] [address] [id number] [address] [place] [address], [place] [address] Aug, [facility] [address] [id number] [address] [place] [address], [place] [address] Aug, [facility] [address] [id number] [address] [place] [address], [place] [id number] Aug, [facility] [address] [id number] [address] [place] [address], [place] [id number] Aug, [facility] [address] [id number] [address] [place] [address], [place] [address] Jun, [facility] [address] [id number] [address] [place] [address], [place] [address] Jun, [facility] [address] [id number] [address] [place] [address], [place] [id number] Jun, [facility] [address] [id number] [address] [place] [address], [place] [id number] Jun, [facility] [address] [id number] [address] [place] [address], [place] [id number] Jun, [facility] [address] [facility] [id number] [address] [place] [id number] Jun, [facility] [address] [facility] [id number] [address] [place] [id number] Jun, [facility] [address] [facility] [id number] [address] [place] [id number] Mar, [facility] [address] [facility] [id number] [address] [place] [id number] Mar, IMMUNIZATIONS No Known Immunizations SOCIAL HISTORY Never Assessed REASON FOR VISIT PLAN OF CARE VITAL SIGNS Height 65 in 2013-11-15 Weight 236 lbs 2013-11-15 Temperature 97.3 degrees Fahrenheit 2013-11-15 Heart Rate 74 bpm 2013-11-15 Respiratory Rate 18 2013-11-15 Blood pressure systolic 122 mmHg 2013-11-15 Blood pressure diastolic 74 mmHg 2013-11-15 MEDICATIONS Unknown Medications RESULTS No Results PROCEDURES Procedure Date Ordered Result Body Site GLUCOSE TEST November 15, 2013 OB US >/= 14 WKS, SNGL FETUS November 15, 2013 VENIPUNCT, ROUTINE* November 15, 2013 URINE-NO MICRO November 15, 2013 INSTRUCTIONS MEDICATIONS ADMINISTERED No Known Medications [...]
--- OUTSIDE RECORDS SUMMARY | 2019-08-12 20:15 | XMS REPORT ---
Author Author Bridgett ROSALES Organization [facility] Address [address] [place] [address] Care Team Providers Care Dispensing Lead Name Role Phone CRISTA ROSALES Unavailable PROBLEMS Type Condition ICD9-CM Code ONI32-CT Code Onset Dates Condition S tatus SNOMED Code Problem Migraine headache G43.909 Active 37 689588 Problem Mixed hyperlipidemia E78.2 Active [id number] ALLERGIES No Information ENCOUNTERS Encounter Location Date Diagnosis [facility] [address] [address] Feb, Mixed hyperlipidemia E78.2 ; Palpitations R00.2 and Abnormal thyroid blood test R94.6 [facility] [address] [place] [id number] [address] [place] [address] Dec, [facility] [address] [address] Dec, [facility] [address] [place] [id number] [address] [place] [address] Nov, Exercise counseling Z71.82 [facility] [address] [id number] [address] [place] [address] Nov, Impetigo L01.00 and Morbid o besity E66.01 [facility] [address] [place] [id number] [address] [place] [address] Nov, Exercise counseling Z71.82 [facility] [address] [id number] [address] [place] [address] October, Exercise counseling Z71.82 [facility] [address] [place] [id number] [address] [place] [address] October, Exercise counseling Z71.82 [facility] [address] [place] [id number] [place] [address] Sep, Mixed hyperlipidemia E78.2 ; Weight loss counseling, encounter for Z71.3 ; 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 and Morbid obesity E66.01 [facility] [address] [address] Sep, Exercise counseling Z71.82 [facility] [address] [address] Sep, Exercise counseling Z71.82 [place] [address] [address] Sep, Exercise counseling Z71.82 [place] [address] [place] [id number] [place] [address] Sep, Exercise counseling Z71.82 [facility] [address] [address] Aug, Screening for diabetes melli tus Z13.1 [place] [address] [address] Aug, Screening for diabetes melli tus Z13.1 [place] [address] [address] Aug, Exercise counseling Z71.82 [place] [address] [address] Aug, Encounter for initial prescr iption of contraceptive pills Z30.011 ; Contraception management Z30.9 ; Contraceptive education Z30.09 ; Mixed hyperlipidemia E78.2 ; Weight loss counseling, encounter for Z71.3 ; Screening for diabetes mellitus Z13.1 ; Screening for thyroid disorder Z13.29 ; History of anemia Z86.2 and Morbid obesity E66.01 [facility] [address] [id number] [address] [place] [address] October, Seasonal allergic rhinitis, unspecified trigger J30.2 and BMI 40.0-44.9, adult Z68.41 [place] [address] [address] 04 Sep, 2018 Pelvic pain R10.2 ; Chronic GERD K21.9 and BMI 40.0-44.9, adult Z68.41 [place] [address] [address] Jul, [facility] [address] [address] Apr, Sore throat J02.9 ; Acute re current streptococcal tonsillitis J03.01 and BMI 40.0-44.9, adult Z68.41 [facility] [place] [address] [address] 09 Mar, 2017 Sore throat J02.9 and Acute non-recurrent streptococcal tonsillitis J03.[address] [address] Feb, [facility] [id number] [place] [id number] Jan, Anxiety and depression F41.8 [facility] [id number] [place] [id number] Dec, [address] [address] Nov, [place] [address] [address] Jun, Normal in multigra sonny Z34.80 and First trimester Z33.[address] [address] Jun, Slow transit constipation K5 9.01 and Ota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 ear H92.[address] [address] May, [facility] [address] [facility] [id number] [address] [place] [address] May, Late menses N91.0 and Acute suppurative otitis media of left ear without spontaneous rupture of tympanic membrane, recurrence not specified H66.002 [facility] [address] [facility] [id number] [address] [place] [address] May, [facility] [address] [facility] [id number] [address] [place] [phone] Apr, [facility] [address] [facility] [id number] [address] [place] [address] Apr, Vaginal discharge N89.8 and Vaginal yeast infection B37.3 [place] [address] [facility] [id number] [address] [place] [address] Mar, [facility] [address] [place] [id number] [address] [place] [address] Feb, [facility] [address] [facility] [id number] [address] [place] [phone] Feb, [facility] [address] [place] [id number] [place] [address] 15 Feb, 2016 Abnormal cholesterol test E7 8.9 [place] [address] [place] [id number] [place] [address] 14 Feb, 2016 History of UTI Z87.440 ; Mix ed hyperlipidemia E78.2 and Abnormal thyroid blood test R94.6 [facility] [address] [place] [address] Jan, [place] [address] [facility] [id number] [address] [place] [address] Jan, [place] [address] [place] [id number] [place] [address] Jan, Chest pain, unspecified type R07.9 ; Palpitations R00.2 ; Hyperlipidemia, unspecified hyperlipidemia type E78.5 and Dyspnea, unspecified type R06.00 [place] [address] [place] [id number] [place] [address] Jan, [facility] [address] [address] Dec, [facility] [address] [address] Dec, Upper respiratory tract infe ction, unspecified type J06.9 [place] [address] [address] Dec, Major depressive disorder, s kelly episode, unspecified F32.9 and Panic attacks F41.0 [place] [address] [address] Nov, History of anemia Z86.2 ; Ab normal thyroid blood test R94.6 ; Mixed hyperlipidemia E78.2 ; Migraine headache G43.909 and Acute maxillary sinusitis, recurrence not specified J01.00 [place] [address] [address] Nov, 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 898 ; Pain in left knee M25.562 and Pain in right knee M25.561 [place] [address] [address] Sep, Pelvic pain in female 625.9 [place] [address] [address] Sep, Pelvic pain R10.2 ; Galactor shahriar in female N64.3 ; Knee pain, left M25.562 and Knee pain, right M25.561 [facility] [address] [address] 17 Aug, 2015 Cough R05 and Laceration of thumb, left S61.012A [place] [address] [address] 09 Aug, 2015 Cough R05 ; History of UTI Z 87.440 and Contraception management Z30.9 [place] [address] [address] 02 Aug, 2015 History of UTI Z87.440 and I rregular menses N92.6 [place] [address] [address] 18 Jul, 2015 Leukopenia D72.819 and Neutr openia D70.9 [place] [address] [address] 18 Jul, 2015 Leukopenia D72.819 and Neutr openia D70.9 [place] [address] [address] 17 Jul, 2015 Migraine headache G43.909 ; Heart burn R12 and History of long-term use of multiple prescription drugs Z92.29 [facility] [address] [address] 15 Jul, 2015 Vaginal discharge N89.8 ; Hi gh risk sexual behavior Z72.51 ; Unprotected sex Z72.51 ; Acute upper respiratory infection, unspecified J06.9 and Other viral agents as the cause of diseases classified elsewhere B97.89 [place] [address] [address] 04 Jul, 2015 Sore throat J02.9 ; Sinusiti s J32.9 and Fever R50.9 [place] [address] [address] Jun, Migraine headache G43.909 an d Heart burn R12 [place] [address] [address] 14 Jun, 2015 [place] [address] [address] 07 Jun, 2015 [place] [address] [address] 06 Jun, 2015 Evaluation regarding contrac eption options Z30.09 ; Encounter for Depo-Provera contraception Z30.42 ; 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 269A [facility] [address] [address] May, Sore throat J02.[address] [address] 24 Feb, 2015 Pelvic pain in female 625.9 and Menorrhagia 626.[address] [address] Dec, Diarrhea 787.[address] [address] Dec, Pelvic pain in female 625.9 and Ganglion cyst of wrist 727.41 [place] [address] [place] [id number] [place] [address] Nov, Eczema 692.9 [place] [address] [address] Nov, [facility] [address] [id number] [address] [place] [address], [place] [address] Sep, [facility] [address] [id number] [address] [place] [address], [place] [address] Sep, [facility] [address] [id number] [address] [place] [address], [place] [address] Jul, [facility] [address] [id number] [address] [place] [address], [place] [address] Jul, [facility] [address] [id number] [address] [place] [address], [place] [address] Jun, [facility] [address] [id number] [address] [place] [address], [place] [address] Jun, [facility] [address] [id number] [address] [place] [address], [place] [address] Jun, [facility] [address] [id number] [address] [place] [address], [place] [address] Jun, [facility] [address] [id number] [address] [place] [address], [place] [address] Jun, [facility] [address] [id number] [address] [place] [address], [place] [address] Jun, [facility] [address] [id number] [address] [place] [address], [place] [address] Jun, [facility] [address] [id number] [address] [place] [phone] Jun, [facility] [address] [id number] [address] [place] [address], [place] [address] May, [facility] [address] [id number] [address] [place] [address], [place] [address] May, [facility] [address] [id number] [address] [place] [address], [place] [address] May, [facility] [address] [id number] [address] [place] [phone] May, [facility] [address] [id number] [address] [place] [address], [place] [address] Apr, [facility] [address] [id number] [address] [place] [address], [place] [address] Apr, [facility] [address] [id number] [address] [place] [address], [place] [address] Apr, [facility] [address] [id number] [address] [place] [address], [place] [address] Apr, [facility] [address] [id number] [address] [place] [address], [place] [address] Apr, [facility] [address] [id number] [address] [place] [address], [place] [address] Apr, [facility] [address] [id number] [address] [place] [address], [place] [address] Feb, [facility] [address] [id number] [address] [place] [address], [place] [address] 29 Feb, 2014 [facility] [address] [id number] [address] [place] [address], [place] [address] Feb, [facility] [address] [id number] [address] [place] [address], [place] [address] Feb, [facility] [address] [id number] [address] [place] [address], [place] [address] Feb, 2013 [facility] [address] [id number] [address] [place] [address], [place] [address] Feb, 2013 [facility] [address] [id number] [address] [place] [address], [place] [address] 25 Feb, 2014 [facility] [address] [id number] [address] [place] [address], [place] [address] 25 Feb, 2013 [facility] [address] [id number] [address] [place] [address], [place] [address] 23 Feb, 2013 [facility] [address] [id number] [facility] [place] [address] 23 Feb, 2013 [facility] [address] [id number] [facility] [place] [address] 22 Feb, 2013 [facility] [address] [id number] [facility] [place] [address] 22 Feb, 2013 [facility] [address] [id number] [address] [place] [address], [place] [address] 19 Feb, 2013 [facility] [address] [id number] [facility] [place] [address] 19 Feb, 2013 [facility] [address] [id number] [address] [place] [address], [place] [address] 12 Feb, 2013 [facility] [address] [id number] [address] [place] [address], [place] [address] 10 Feb, 2013 [facility] [address] [id number] [address] [place] [address], [place] [address] 10 Feb, 2013 [facility] [address] [id number] [address] [place] [address], [place] [address] 04 Feb, 2013 [facility] [address] [id number] [address] [place] [address], [place] [address] 03 Feb, 2013 [facility] [address] [id number] [address] [place] [address], [place] [address] Feb, 2013 [facility] [address] [id number] [address] [place] [address], [place] [address] Jan, [facility] [address] [id number] [address] [place] [address], [place] [address] Jan, [facility] [address] [id number] [address] [place] [address], [place] [address] Jan, [facility] [address] [id number] [address] [place] [address], [place] [address] Jan, [facility] [address] [id number] [address] [place] [address], [place] [address] Jan, [facility] [address] [id number] [facility] [place] [address] Jan, [facility] [address] [id number] [address] [place] [address], [place] [address] Jan, [facility] [address] [id number] [address] [place] [address], [place] [address] Jan, [facility] [address] [id number] [address] [place] [address], [place] [address] Dec, [facility] [address] [id number] [address] [place] [address], [place] [address] Dec, [facility] [address] [id number] [address] [place] [address], [place] [address] Dec, [facility] [address] [id number] [address] [place] [address], [place] [address] Dec, [facility] [address] [id number] [address] [place] [address], [place] [address] Dec, [facility] [address] [id number] [address] [place] [address], [place] [address] Dec, [facility] [address] [id number] [address] [place] [address], [place] [address] Dec, [facility] [address] [id number] [address] [place] [address], [place] [address] Dec, [facility] [address] [id number] [address] [place] [address], [place] [address] Dec, [facility] [address] [id number] [address] [place] [address], [place] [address] Dec, [facility] [address] [id number] [address] [place] [address], [place] [address] Dec, [facility] [address] [id number] [address] [place] [address], [place] [address] Dec, [facility] [address] [id number] [address] [place] [address], [place] [address] Nov, [facility] [address] [id number] [address] [place] [address], [place] [address] Nov, [facility] [address] [id number] [address] [place] [address], [place] [address] Nov, [facility] [address] [id number] [address] [place] [address], [place] [address] Nov, [facility] [address] [id number] [address] [place] [address], [place] [address] Nov, [facility] [address] [id number] [address] [place] [address], [place] [address] Nov, [facility] [address] [id number] [address] [place] [address], [place] [address] Nov, [facility] [address] [id number] [address] [place] [address], [place] [address] Nov, [facility] [address] [id number] [address] [place] [address], [place] [address] Nov, [facility] [address] [id number] [address] [place] [address], [place] [address] Nov, [facility] [address] [id number] [address] [place] [address], [place] [address] October, [facility] [address] [id number] [address] [place] [address], [place] [address] October, [facility] [address] [id number] [address] [place] [address], [place] [address] October, [facility] [address] [id number] [address] [place] [address], [place] [address] October, [facility] [address] [id number] [address] [place] [address], [place] [address] October, [facility] [address] [id number] [address] [place] [address], [place] [address] October, [facility] [address] [id number] [facility] [place] [address] Sep, [facility] [address] [id number] [facility] [place] [address] Sep, [facility] [address] [id number] [address] [place] [address], [place] [address] Sep, [facility] [address] [id number] [address] [place] [address], [place] [address] Sep, [facility] [address] [id number] [address] [place] [address], [place] [address] Sep, [facility] [address] [id number] [address] [place] [address], [place] [address] Sep, [facility] [address] [id number] [address] [place] [address], [place] [address] Aug, [facility] [address] [id number] [address] [place] [address], [place] [address] Aug, [facility] [address] [id number] [address] [place] [address], [place] [address] Aug, [facility] [address] [id number] [address] [place] [address], [place] [address] Aug, [facility] [address] [id number] [address] [place] [address], [place] [address] Aug, [facility] [address] [id number] [address] [place] [address], [place] [phone] Jun, [facility] [address] [id number] [address] [place] [address], [place] [id number] Jun, [facility] [address] [id number] [address] [place] [address], [place] [address] Jun, [facility] [address] [id number] [address] [place] [address], [place] [phone] Jun, [facility] [address] [id number] [address] [place] [address], [place] [address] Jun, [facility] [address] [facility] [id number] [address] [place] [id number] Jun, [facility] [address] [facility] [id number] [address] [place] [phone] Jun, [facility] [address] [facility] [id number] [address] [place] [phone] Mar, [facility] [address] [facility] [id number] [address] [place] [id number] Mar, IMMUNIZATIONS No Known Immunizations SOCIAL HISTORY [...]
--- OUTSIDE RECORDS SUMMARY | 2019-08-12 20:15 | XMS REPORT ---
Author Author Bridgett ROSALES Organization [facility] Address [address] [place] [address] Care Team Providers Care Piping Supervisor Name Role Phone CRISTA ROSALES Unavailable PROBLEMS Type Condition ICD9-CM Code [id number] Code Onset Dates Condition S tatus SNOMED Code Problem Migraine headache G43.909 Active 37 892697 Problem Mixed hyperlipidemia E78.2 Active [id number] ALLERGIES No Information ENCOUNTERS Encounter Location Date Diagnosis [facility] [address] [address] Feb, Mixed hyperlipidemia E78.2 ; Palpitations R00.2 and Abnormal thyroid blood test R94.6 [facility] [address] [place] [id number] [address] [place] [address] Dec, [facility] [address] [address] Dec, [facility] [address] [place] [id number] [address] [place] [address] Nov, Exercise counseling Z71.82 [facility] [address] [place] [id number] [address] [place] [address] Nov, Impetigo L01.00 and Morbid o besity E66.01 [facility] [address] [place] [id number] [address] [place] [address] Nov, Exercise counseling Z71.82 [facility] [address] [place] [id number] [address] [place] [address] October, Exercise counseling Z71.82 [facility] [address] [place] [place] [id number] [place] [address] October, Exercise counseling Z71.82 [facility] [address] [place] [id number] [address] [place] [address] Sep, Mixed hyperlipidemia E78.2 ; Weight loss counseling, encounter for Z71.3 ; 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 and Morbid obesity E66.01 [facility] [address] [address] Sep, Exercise counseling Z71.82 [facility] [address] [address] Sep, Exercise counseling Z71.82 [place] [address] [address] Sep, Exercise counseling Z71.82 [place] [address] [place] [id number] [place] [address] Sep, Exercise counseling Z71.82 [facility] [address] [address] Aug, Screening for diabetes melli tus Z13.1 [place] [address] [address] Aug, Screening for diabetes melli tus Z13.1 [place] [address] [address] Aug, Exercise counseling Z71.82 [place] [address] [address] Aug, Encounter for initial prescr iption of contraceptive pills Z30.011 ; Contraception management Z30.9 ; Contraceptive education Z30.09 ; Mixed hyperlipidemia E78.2 ; Weight loss counseling, encounter for Z71.3 ; Screening for diabetes mellitus Z13.1 ; Screening for thyroid disorder Z13.29 ; History of anemia Z86.2 and Morbid obesity E66.01 [facility] [address] [place] [id number] [address] [place] [address] October, Seasonal allergic rhinitis, unspecified trigger J30.2 and BMI 40.0-44.9, adult Z68.41 [place] [address] [address] 04 Sep, 2018 Pelvic pain R10.2 ; Chronic GERD K21.9 and BMI 40.0-44.9, adult Z68.41 [place] [address] [address] Jul, [facility] WALK IN [address] [address] Apr, Sore throat J02.9 ; Acute re current streptococcal tonsillitis J03.01 and BMI 40.0-44.9, adult Z68.41 [facility] [place] [address] [address] 09 Mar, 2017 Sore throat J02.9 and Acute non-recurrent streptococcal tonsillitis J03.[address] [address] Feb, [facility] [id number] [place] [id number] Jan, Anxiety and depression F41.8 [facility] [id number] [place] [id number] Dec, [address] [address] Nov, [place] [address] [address] Jun, Normal in multigra sonny Z34.80 and First trimester Z33.[address] [address] Jun, Slow transit constipation K5 9.01 and Ota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 ear H92.[address] [address] May, [facility] [address] [facility] [id number] [address] [place] [address] May, Late menses N91.0 and Acute suppurative otitis media of left ear without spontaneous rupture of tympanic membrane, recurrence not specified H66.002 [facility] [address] [facility] [id number] [address] [place] [address] May, [facility] [address] [facility] [id number] [address] [place] [address] Apr, [facility] [address] [facility] [id number] [address] [place] [address] Apr, Vaginal discharge N89.8 and Vaginal yeast infection B37.3 [place] [address] [facility] [id number] [address] [place] [address] Mar, [facility] [address] [place] [id number] [address] [place] [phone] Feb, [facility] [address] [facility] [id number] [address] [place] [address] Feb, [facility] [address] [place] [id number] [place] [address] 15 Feb, 2016 Abnormal cholesterol test E7 8.9 [place] [address] [place] [id number] [place] [address] 14 Feb, 2016 History of UTI Z87.440 ; Mix ed hyperlipidemia E78.2 and Abnormal thyroid blood test R94.6 [facility] [address] [place] [address] Jan, [place] [address] [facility] [id number] [address] [place] [address] Jan, [place] [address] [place] [id number] [place] [address] Jan, Chest pain, unspecified type R07.9 ; Palpitations R00.2 ; Hyperlipidemia, unspecified hyperlipidemia type E78.5 and Dyspnea, unspecified type R06.00 [place] [address] [place] [id number] [place] [address] Jan, [facility] [address] [address] Dec, [facility] [address] [address] Dec, Upper respiratory tract infe ction, unspecified type J06.9 [place] [address] [address] Dec, Major depressive disorder, s kelly episode, unspecified F32.9 and Panic attacks F41.0 [place] [address] [address] Nov, History of anemia Z86.2 ; Ab normal thyroid blood test R94.6 ; Mixed hyperlipidemia E78.2 ; Migraine headache G43.909 and Acute maxillary sinusitis, recurrence not specified J01.00 [place] [address] [address] Nov, 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 898 ; Pain in left knee M25.562 and Pain in right knee M25.561 [place] [address] [address] Sep, Pelvic pain in female 625.9 [place] [address] [address] Sep, Pelvic pain R10.2 ; Galactor shahriar in female N64.3 ; Knee pain, left M25.562 and Knee pain, right M25.561 [facility] [address] [address] 17 Aug, 2015 Cough R05 and Laceration of thumb, left S61.012A [place] [address] [address] 09 Aug, 2015 Cough R05 ; History of UTI Z 87.440 and Contraception management Z30.9 [place] [address] [address] 02 Aug, 2015 History of UTI Z87.440 and I rregular menses N92.6 [place] [address] [address] 18 Jul, 2015 Leukopenia D72.819 and Neutr openia D70.9 [place] [address] [address] 18 Jul, 2015 Leukopenia D72.819 and Neutr openia D70.9 [place] [address] [address] 17 Jul, 2015 Migraine headache G43.909 ; Heart burn R12 and History of long-term use of multiple prescription drugs Z92.29 [facility] [address] [address] 15 Jul, 2015 Vaginal discharge N89.8 ; Hi gh risk sexual behavior Z72.51 ; Unprotected sex Z72.51 ; Acute upper respiratory infection, unspecified J06.9 and Other viral agents as the cause of diseases classified elsewhere B97.89 [place] [address] [address] 04 Jul, 2015 Sore throat J02.9 ; Sinusiti s J32.9 and Fever R50.9 [place] [address] [address] Jun, Migraine headache G43.909 an d Heart burn R12 [place] [address] [address] 14 Jun, 2015 [place] [address] [address] 07 Jun, 2015 [place] [address] [address] 06 Jun, 2015 Evaluation regarding contrac eption options Z30.09 ; Encounter for Depo-Provera contraception Z30.42 ; 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 269A [facility] WALK IN [address] [address] May, Sore throat J02.[address] [address] 24 Feb, 2015 Pelvic pain in female 625.9 and Menorrhagia 626.[address] [address] Dec, Diarrhea 787.[address] [address] Dec, Pelvic pain in female 625.9 and Ganglion cyst of wrist 727.41 [place] [address] [place] [id number] [place] [address] Nov, Eczema 692.9 [place] [address] [address] Nov, [facility] [address] [id number] [address] [place] [address], [place] [address] Sep, [facility] [address] [id number] [address] [place] [address], [place] [address] Sep, [facility] [address] [id number] [address] [place] [address], [place] [address] Jul, [facility] [address] [id number] [address] [place] [address], [place] [address] Jul, [facility] [address] [id number] [address] [place] [address], [place] [address] Jun, [facility] [address] [id number] [address] [place] [address], [place] [address] Jun, [facility] [address] [id number] [address] [place] [address], [place] [address] Jun, [facility] [address] [id number] [address] [place] [address], [place] [address] Jun, [facility] [address] [id number] [address] [place] [address], [place] [address] Jun, [facility] [address] [id number] [address] [place] [address], [place] [address] Jun, [facility] [address] [id number] [address] [place] [address], [place] [address] Jun, [facility] [address] [id number] [address] [place] [address] Jun, [facility] [address] [id number] [address] [place] [address], [place] [address] May, [facility] [address] [id number] [address] [place] [address], [place] [address] May, [facility] [address] [id number] [address] [place] [address], [place] [address] May, [facility] [address] [id number] [address] [place] [phone] May, [facility] [address] [id number] [address] [place] [address], [place] [address] Apr, [facility] [address] [id number] [address] [place] [address], [place] [address] Apr, [facility] [address] [id number] [address] [place] [address], [place] [address] Apr, [facility] [address] [id number] [address] [place] [address], [place] [address] Apr, [facility] [address] [id number] [address] [place] [address], [place] [address] Apr, [facility] [address] [id number] [address] [place] [address], [place] [address] Apr, [facility] [address] [id number] [address] [place] [address], [place] [address] Feb, [facility] [address] [id number] [address] [place] [address], [place] [address] 29 Feb, 2014 [facility] [address] [id number] [address] [place] [address], [place] [address] Feb, [facility] [address] [id number] [address] [place] [address], [place] [address] Feb, [facility] [address] [id number] [address] [place] [address], [place] [address] Feb, 2013 [facility] [address] [id number] [address] [place] [address], [place] [address] Feb, 2013 [facility] [address] [id number] [address] [place] [address], [place] [address] 25 Feb, 2014 [facility] [address] [id number] [address] [place] [address], [place] [address] 25 Feb, 2013 [facility] [address] [id number] [address] [place] [address], [place] [address] 23 Feb, 2013 [facility] [address] [id number] [facility] [place] [address] 23 Feb, 2013 [facility] [address] [id number] [facility] [place] [address] 22 Feb, 2013 [facility] [address] [id number] [facility] [place] [address] 22 Feb, 2013 [facility] [address] [id number] [address] [place] [address], [place] [address] 19 Feb, 2013 [facility] [address] [id number] [facility] [place] [address] 19 Feb, 2013 [facility] [address] [id number] [address] [place] [address], [place] [address] 12 Feb, 2013 [facility] [address] [id number] [address] [place] [address], [place] [address] 10 Feb, 2013 [facility] [address] [id number] [address] [place] [address], [place] [address] 10 Feb, 2013 [facility] [address] [id number] [address] [place] [address], [place] [address] 04 Feb, 2013 [facility] [address] [id number] [address] [place] [address], [place] [address] 03 Feb, 2013 [facility] [address] [id number] [address] [place] [address], [place] [address] Feb, 2013 [facility] [address] [id number] [address] [place] [address], [place] [address] Jan, [facility] [address] [id number] [address] [place] [address], [place] [address] Jan, [facility] [address] [id number] [address] [place] [address], [place] [address] Jan, [facility] [address] [id number] [address] [place] [address], [place] [address] Jan, [facility] [address] [id number] [address] [place] [address], [place] [address] Jan, [facility] [address] [id number] [facility] [place] [address] Jan, [facility] [address] [id number] [address] [place] [address], [place] [address] Jan, [facility] [address] [id number] [address] [place] [address], [place] [address] Jan, [facility] [address] [id number] [address] [place] [address], [place] [address] Dec, [facility] [address] [id number] [address] [place] [address], [place] [address] Dec, [facility] [address] [id number] [address] [place] [address], [place] [address] Dec, [facility] [address] [id number] [address] [place] [address], [place] [address] Dec, [facility] [address] [id number] [address] [place] [address], [place] [address] Dec, [facility] [address] [id number] [address] [place] [address], [place] [address] Dec, [facility] [address] [id number] [address] [place] [address], [place] [address] Dec, [facility] [address] [id number] [address] [place] [address], [place] [address] Dec, [facility] [address] [id number] [address] [place] [address], [place] [address] Dec, [facility] [address] [id number] [address] [place] [address], [place] [address] Dec, [facility] [address] [id number] [address] [place] [address], [place] [address] Dec, [facility] [address] [id number] [address] [place] [address], [place] [address] Dec, [facility] [address] [id number] [address] [place] [address], [place] [address] Nov, [facility] [address] [id number] [address] [place] [address], [place] [address] Nov, [facility] [address] [id number] [address] [place] [address], [place] [address] Nov, [facility] [address] [id number] [address] [place] [address], [place] [address] Nov, [facility] [address] [id number] [address] [place] [address], [place] [address] Nov, [facility] [address] [id number] [address] [place] [address], [place] [address] Nov, [facility] [address] [id number] [address] [place] [address], [place] [address] Nov, [facility] [address] [id number] [address] [place] [address], [place] [address] Nov, [facility] [address] [id number] [address] [place] [address], [place] [address] Nov, [facility] [address] [id number] [address] [place] [address], [place] [address] Nov, [facility] [address] [id number] [address] [place] [address], [place] [address] October, [facility] [address] [id number] [address] [place] [address], [place] [address] October, [facility] [address] [id number] [address] [place] [address], [place] [address] October, [facility] [address] [id number] [address] [place] [address], [place] [address] October, [facility] [address] [id number] [address] [place] [address], [place] [address] October, [facility] [address] [id number] [address] [place] [address], [place] [address] October, [facility] [address] [id number] [facility] [place] [address] Sep, [facility] [address] [id number] [facility] [place] [address] Sep, [facility] [address] [id number] [address] [place] [address], [place] [address] Sep, [facility] [address] [id number] [address] [place] [address], [place] [address] Sep, [facility] [address] [id number] [address] [place] [address], [place] [address] Sep, [facility] [address] [id number] [address] [place] [address], [place] [address] Sep, [facility] [address] [id number] [address] [place] [address], [place] [address] Aug, [facility] [address] [id number] [address] [place] [address], [place] [address] Aug, [facility] [address] [id number] [address] [place] [address], [place] [address] Aug, [facility] [address] [id number] [address] [place] [address], [place] [address] Aug, [facility] [address] [id number] [address] [place] [address], [place] [address] Aug, [facility] [address] [id number] [address] [place] [address], [place] [address] Jun, [facility] [address] [id number] [address] [place] [address], [place] [address] Jun, [facility] [address] [id number] [address] [place] [address], [place] [address] Jun, [facility] [address] [id number] [address] [place] [address], [place] [id number] Jun, [facility] [address] [id number] [address] [place] [address], [place] [address] Jun, [facility] [address] [facility] [id number] [address] [place] [id number] Jun, [facility] [address] [facility] [id number] [address] [place] [id number] Jun, [facility] [address] [facility] [id number] [address] [place] [id number] Mar, [facility] [address] [facility] [id number] [address] [place] [id number] Mar, IMMUNIZATIONS No Known Immunizations SOCIAL HISTORY [...]
--- OUTSIDE RECORDS SUMMARY | 2019-08-12 20:15 | XMS REPORT ---
Author Author Bridgett ROSALES Organization [facility] Address [address] [place] [address] Care Team Providers Care Eap Consultant Name Role Phone CRISTA ROSALES Unavailable PROBLEMS Type Condition ICD9-CM Code EIJ29-LS Code Onset Dates Condition S tatus SNOMED Code Problem Migraine headache G43.909 Active 37 492200 Problem Mixed hyperlipidemia E78.2 Active [id number] ALLERGIES No Information ENCOUNTERS Encounter Location Date Diagnosis [facility] [address] [address] Feb, Mixed hyperlipidemia E78.2 ; Palpitations R00.2 and Abnormal thyroid blood test R94.6 [facility] [address] [place] [id number] [address] [place] [address] Dec, [facility] [address] [address] Dec, [facility] [address] [place] [id number] [address] [place] [address] Nov, Exercise counseling Z71.82 [facility] [address] [place] [place] [id number] [address] [place] [address] Nov, Impetigo L01.00 and Morbid o besity E66.01 [facility] [address] [place] [id number] [address] [place] [address] Nov, Exercise counseling Z71.82 [facility] [address] [place] [id number] [address] [place] [address] October, Exercise counseling Z71.82 [facility] [address] [place] [id number] [address] [place] [address] October, Exercise counseling Z71.82 [facility] [address] [place] [id number] [address] [place] [address] Sep, Mixed hyperlipidemia E78.2 ; Weight loss counseling, encounter for Z71.3 ; 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 [facility] [address] [address] Sep, Exercise counseling Z71.82 [facility] [address] [address] Sep, Exercise counseling Z71.82 [place] [address] [address] Sep, Exercise counseling Z71.82 [place] [address] [place] [id number] [place] [address] Sep, Exercise counseling Z71.82 [facility] [address] [address] Aug, Screening for diabetes melli tus Z13.1 [place] [address] [address] Aug, Screening for diabetes melli tus Z13.1 [place] [address] [address] Aug, Exercise counseling Z71.82 [place] [address] [address] Aug, Encounter for initial prescr iption of contraceptive pills Z30.011 ; Contraception management Z30.9 ; Contraceptive education Z30.09 ; Mixed hyperlipidemia E78.2 ; Weight loss counseling, encounter for Z71.3 ; Screening for diabetes mellitus Z13.1 ; Screening for thyroid disorder Z13.29 ; History of anemia Z86.2 and Morbid obesity E66.01 [facility] [address] [place] [id number] [address] [place] [address] October, Seasonal allergic rhinitis, unspecified trigger J30.2 and BMI 40.0-44.9, adult Z68.41 [place] [address] [address] 04 Sep, 2018 Pelvic pain R10.2 ; Chronic GERD K21.9 and BMI 40.0-44.9, adult Z68.41 [place] [address] [address] Jul, [facility] [address] [address] Apr, Sore throat J02.9 ; Acute re current streptococcal tonsillitis J03.01 and BMI 40.0-44.9, adult Z68.41 [facility] [place] [address] [address] 09 Mar, 2017 Sore throat J02.9 and Acute non-recurrent streptococcal tonsillitis J03.[address] [address] Feb, [facility] [id number] [place] [id number] Jan, Anxiety and depression F41.8 [facility] [id number] [place] [id number] Dec, [address] [address] Nov, [place] [address] [address] Jun, Normal in multigra sonny Z34.80 and First trimester Z33.[address] [address] Jun, Slow transit constipation K5 9.01 and Ota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 ear H92.[address] [address] May, [facility] [address] [facility] [id number] [address] [place] [address] May, Late menses N91.0 and Acute suppurative otitis media of left ear without spontaneous rupture of tympanic membrane, recurrence not specified H66.002 [facility] [address] [facility] [id number] [address] [place] [address] May, [facility] [address] [facility] [id number] [address] [place] [address] Apr, [facility] [address] [facility] [id number] [address] [place] [address] Apr, Vaginal discharge N89.8 and Vaginal yeast infection B37.3 [place] [address] [facility] [id number] [address] [place] [address] Mar, [facility] [address] [place] [id number] [address] [place] [address] Feb, [facility] [address] [facility] [id number] [address] [place] [address] Feb, [facility] [address] [place] [id number] [address] [place] [address] 15 Feb, 2016 Abnormal cholesterol test E7 8.9 [place] [address] [place] [id number] [place] [address] 14 Feb, 2016 History of UTI Z87.440 ; Mix ed hyperlipidemia E78.2 and Abnormal thyroid blood test R94.6 [facility] [address] [place] [address] Jan, [place] [address] [facility] [id number] [address] [place] [address] Jan, [place] [address] [place] [id number] [address] [place] [address] Jan, Chest pain, unspecified type R07.9 ; Palpitations R00.2 ; Hyperlipidemia, unspecified hyperlipidemia type E78.5 and Dyspnea, unspecified type R06.00 [place] [address] [place] [id number] [address] [place] [address] Jan, [facility] [address] [address] Dec, [facility] [address] [address] Dec, Upper respiratory tract infe ction, unspecified type J06.9 [place] [address] [address] Dec, Major depressive disorder, s kelly episode, unspecified F32.9 and Panic attacks F41.0 [place] [address] [address] Nov, History of anemia Z86.2 ; Ab normal thyroid blood test R94.6 ; Mixed hyperlipidemia E78.2 ; Migraine headache G43.909 and Acute maxillary sinusitis, recurrence not specified J01.00 [place] [address] [address] Nov, 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 898 ; Pain in left knee M25.562 and Pain in right knee M25.561 [place] [address] [address] Sep, Pelvic pain in female 625.9 [place] [address] [address] Sep, Pelvic pain R10.2 ; Galactor shahriar in female N64.3 ; Knee pain, left M25.562 and Knee pain, right M25.561 [facility] [address] [address] 17 Aug, 2015 Cough R05 and Laceration of thumb, left S61.012A [place] [address] [address] 09 Aug, 2015 Cough R05 ; History of UTI Z 87.440 and Contraception management Z30.9 [place] [address] [address] 02 Aug, 2015 History of UTI Z87.440 and I rregular menses N92.6 [place] [address] [address] 18 Jul, 2015 Leukopenia D72.819 and Neutr openia D70.9 [place] [address] [address] 18 Jul, 2015 Leukopenia D72.819 and Neutr openia D70.9 [place] [address] [address] 17 Jul, 2015 Migraine headache G43.909 ; Heart burn R12 and History of long-term use of multiple prescription drugs Z92.29 [facility] [address] [address] 15 Jul, 2015 Vaginal discharge N89.8 ; Hi gh risk sexual behavior Z72.51 ; Unprotected sex Z72.51 ; Acute upper respiratory infection, unspecified J06.9 and Other viral agents as the cause of diseases classified elsewhere B97.89 [place] [address] [address] 04 Jul, 2015 Sore throat J02.9 ; Sinusiti s J32.9 and Fever R50.9 [place] [address] [address] Jun, Migraine headache G43.909 an d Heart burn R12 [place] [address] [address] 14 Jun, 2015 [place] [address] [address] 07 Jun, 2015 [place] [address] [address] 06 Jun, 2015 Evaluation regarding contrac eption options Z30.09 ; Encounter for Depo-Provera contraception Z30.42 ; 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 269A [facility] [address] [address] May, Sore throat J02.[address] [address] 24 Feb, 2015 Pelvic pain in female 625.9 and Menorrhagia 626.[address] [address] Dec, Diarrhea 787.[address] [address] Dec, Pelvic pain in female 625.9 and Ganglion cyst of wrist 727.41 [place] [address] [place] [id number] [address] [place] [address] Nov, Eczema 692.9 [place] [address] [address] Nov, [facility] [address] [id number] [address] [place] [address], [place] [address] Sep, [facility] [address] [id number] [address] [place] [address], [place] [address] Sep, [facility] [address] [id number] [address] [place] [address], [place] [address] Jul, [facility] [address] [id number] [address] [place] [address], [place] [address] Jul, [facility] [address] [id number] [address] [place] [address], [place] [address] Jun, [facility] [address] [id number] [address] [place] [address], [place] [address] Jun, [facility] [address] [id number] [address] [place] [address], [place] [address] Jun, [facility] [address] [id number] [address] [place] [address], [place] [address] Jun, [facility] [address] [id number] [address] [place] [address], [place] [address] Jun, [facility] [address] [id number] [address] [place] [address], [place] [address] Jun, [facility] [address] [id number] [address] [place] [address], [place] [address] Jun, [facility] [address] [id number] [address] [place] [address] Jun, [facility] [address] [id number] [address] [place] [address], [place] [address] May, [facility] [address] [id number] [address] [place] [address], [place] [address] May, [facility] [address] [id number] [address] [place] [address], [place] [address] May, [facility] [address] [id number] [address] [place] [address] May, [facility] [address] [id number] [address] [place] [address], [place] [address] Apr, [facility] [address] [id number] [address] [place] [address], [place] [address] Apr, [facility] [address] [id number] [address] [place] [address], [place] [address] Apr, [facility] [address] [id number] [address] [place] [address], [place] [address] Apr, [facility] [address] [id number] [address] [place] [address], [place] [address] Apr, [facility] [address] [id number] [address] [place] [address], [place] [address] Apr, [facility] [address] [id number] [address] [place] [address], [place] [address] Feb, [facility] [address] [id number] [address] [place] [address], [place] [address] 29 Feb, 2014 [facility] [address] [id number] [address] [place] [address], [place] [address] Feb, [facility] [address] [id number] [address] [place] [address], [place] [address] Feb, [facility] [address] [id number] [address] [place] [address], [place] [address] Feb, 2013 [facility] [address] [id number] [address] [place] [address], [place] [address] Feb, 2013 [facility] [address] [id number] [address] [place] [address], [place] [address] 25 Feb, 2014 [facility] [address] [id number] [address] [place] [address], [place] [address] 25 Feb, 2013 [facility] [address] [id number] [address] [place] [address], [place] [address] 23 Feb, 2013 [facility] [address] [id number] [facility] [address] 23 Feb, 2013 [facility] [address] [id number] [facility] [place] [address] 22 Feb, 2013 [facility] [address] [id number] [facility] [address] 22 Feb, 2013 [facility] [address] [id number] [address] [place] [address], [place] [address] 19 Feb, 2013 [facility] [address] [id number] [facility] [address] 19 Feb, 2013 [facility] [address] [id number] [address] [place] [address], [place] [address] 12 Feb, 2013 [facility] [address] [id number] [address] [place] [address], [place] [address] 10 Feb, 2013 [facility] [address] [id number] [address] [place] [address], [place] [address] 10 Feb, 2013 [facility] [address] [id number] [address] [place] [address], [place] [address] 04 Feb, 2013 [facility] [address] [id number] [address] [place] [address], [place] [address] 03 Feb, 2013 [facility] [address] [id number] [address] [place] [address], [place] [address] Feb, 2013 [facility] [address] [id number] [address] [place] [address], [place] [address] Jan, [facility] [address] [id number] [address] [place] [address], [place] [address] Jan, [facility] [address] [id number] [address] [place] [address], [place] [address] Jan, [facility] [address] [id number] [address] [place] [address], [place] [address] Jan, [facility] [address] [id number] [address] [place] [address], [place] [address] Jan, [facility] [address] [id number] [facility] [place] [address] Jan, [facility] [address] [id number] [address] [place] [address], [place] [address] Jan, [facility] [address] [id number] [address] [place] [address], [place] [address] Jan, [facility] [address] [id number] [address] [place] [address], [place] [address] Dec, [facility] [address] [id number] [address] [place] [address], [place] [address] Dec, [facility] [address] [id number] [address] [place] [address], [place] [address] Dec, [facility] [address] [id number] [address] [place] [address], [place] [address] Dec, [facility] [address] [id number] [address] [place] [address], [place] [address] Dec, [facility] [address] [id number] [address] [place] [address], [place] [address] Dec, [facility] [address] [id number] [address] [place] [address], [place] [address] Dec, [facility] [address] [id number] [address] [place] [address], [place] [address] Dec, [facility] [address] [id number] [address] [place] [address], [place] [address] Dec, [facility] [address] [id number] [address] [place] [address], [place] [address] Dec, [facility] [address] [id number] [address] [place] [address], [place] [address] Dec, [facility] [address] [id number] [address] [place] [address], [place] [address] Dec, [facility] [address] [id number] [address] [place] [address], [place] [address] Nov, [facility] [address] [id number] [address] [place] [address], [place] [address] Nov, [facility] [address] [id number] [address] [place] [address], [place] [address] Nov, [facility] [address] [id number] [address] [place] [address], [place] [address] Nov, [facility] [address] [id number] [address] [place] [address], [place] [address] Nov, [facility] [address] [id number] [address] [place] [address], [place] [address] Nov, [facility] [address] [id number] [address] [place] [address], [place] [address] Nov, [facility] [address] [id number] [address] [place] [address], [place] [address] Nov, [facility] [address] [id number] [address] [place] [address], [place] [address] Nov, [facility] [address] [id number] [address] [place] [address], [place] [address] Nov, [facility] [address] [id number] [address] [place] [address], [place] [address] October, [facility] [address] [id number] [address] [place] [address], [place] [address] October, [facility] [address] [id number] [address] [place] [address], [place] [address] October, [facility] [address] [id number] [address] [place] [address], [place] [address] October, [facility] [address] [id number] [address] [place] [address], [place] [address] October, [facility] [address] [id number] [address] [place] [address], [place] [address] October, [facility] [address] [id number] [facility] [place] [address] Sep, [facility] [address] [id number] [facility] [place] [address] Sep, [facility] [address] [id number] [address] [place] [address], [place] [address] Sep, [facility] [address] [id number] [address] [place] [address], [place] [address] Sep, [facility] [address] [id number] [address] [place] [address], [place] [address] Sep, [facility] [address] [id number] [address] [place] [address], [place] [address] Sep, [facility] [address] [id number] [address] [place] [address], [place] [address] Aug, [facility] [address] [id number] [address] [place] [address], [place] [address] Aug, [facility] [address] [id number] [address] [place] [address], [place] [address] Aug, [facility] [address] [id number] [address] [place] [address], [place] [address] Aug, [facility] [address] [id number] [address] [place] [address], [place] [address] Aug, [facility] [address] [id number] [address] [place] [address], [place] [address] Jun, [facility] [address] [id number] [address] [place] [address], [place] [address] Jun, [facility] [address] [id number] [address] [place] [address], [place] [address] Jun, [facility] [address] [id number] [address] [place] [address], [place] [address] Jun, [facility] [address] [id number] [address] [place] [address], [place] [address] Jun, [facility] [address] [facility] [id number] [address] [place] [id number] Jun, [facility] [address] [facility] [id number] [address] [place] [id number] Jun, [facility] [address] [facility] [id number] [address] [place] [id number] Mar, [facility] [address] [facility] [id number] [address] [place] [id number] Mar, IMMUNIZATIONS No Known Immunizations SOCIAL HISTORY Never Assessed REASON FOR VISIT PLAN OF CARE VITAL SIGNS Height 65 in 2014-05-17 Weight 242.3 lbs 2014-05-17 Temperature 96.7 degrees Fahrenheit 2014-05-17 Heart Rate 84 bpm 2014-05-17 Respiratory Rate 18 2014-05-17 Blood pressure systolic 122 mmHg 2014-05-17 Blood pressure diastolic 84 mmHg 2014-05-17 MEDICATIONS Unknown Medications RESULTS No Results PROCEDURES Procedure Date Ordered Result Body Site COMPLETE CBC W/AUTO DIFF WBC May 17, 2014 COMPREHEN METABOLIC PANEL May 17, 2014 X-RAY EXAM OF LOWER SPINE May 17, 2014 VENIPUNCT, ROUTINE* May 17, 2014 INSTRUCTIONS MEDICATIONS ADMINISTERED No Known Medications [...]
--- OUTSIDE RECORDS SUMMARY | 2019-08-12 20:16 | XMS REPORT ---
Author Author Bridgett TORRES [facility] Address [address] [place] [address] Care Team Providers Care Naturalist Name Role Phone ESTEFANIA TORRES Unavailable PROBLEMS Type Condition ICD9-CM Code DUL34-UQ Code Onset Dates Condition S tatus SNOMED Code Problem Migraine headache G43.909 Active 37 335542 Problem Mixed hyperlipidemia E78.2 Active [id number] ALLERGIES No Information ENCOUNTERS Encounter Location Date Diagnosis [facility] [address] [id number] [address] [place] [address] Feb, Mixed hyperlipidemia E78.2 ; Palpitations R00.2 and Abnormal thyroid blood test R94.6 [facility] [address] [facility] [id number] [address] [place] [address] Dec, [facility] [address] [facility] [id number] [address] [place] [address] Dec, [facility] [address] [id number] [address] [place] [address] Nov, Exercise counseling Z71.82 [facility] [address] [id number] [address] [place] [address] Nov, Impetigo L01.00 and Morbid o besity E66.01 [facility] [address] [facility] [id number] [address] [place] [address] Nov, Exercise counseling Z71.82 [facility] [address] [id number] [address] [place] [address] October, Exercise counseling Z71.82 [facility] [address] [id number] [address] [place] [address] October, Exercise counseling Z71.82 [facility] [address] 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 [id number] [address] [place] [address] Sep, Exercise counseling Z71.82 [place] [address] [facility] [id number] [address] [place] [address] Sep, Exercise counseling Z71.82 [place] [address] [facility] [id number] [place] [address] Sep, Exercise counseling Z71.82 [place] [address] [place] [address] Sep, Exercise counseling Z71.82 [place] [address] [address] Aug, Screening for diabetes melli tus Z13.1 [place] [address] [address] Aug, Screening for diabetes melli tus Z13.1 [place] [address] [place] [id number] [address] [place] [address] Aug, Exercise counseling Z71.82 [place] [address] [address] Aug, Encounter for initial prescr iption of contraceptive pills Z30.011 ; Contraception management Z30.9 ; Contraceptive education Z30.09 ; Mixed hyperlipidemia E78.2 ; Weight loss counseling, encounter for Z71.3 ; Screening for diabetes mellitus Z13.1 ; Screening for thyroid disorder Z13.29 ; History of anemia Z86.2 and Morbid obesity E66.01 [facility] [address] [facility] [id number] [address] [place] [address] October, Seasonal allergic rhinitis, unspecified trigger J30.2 and BMI 40.0-44.9, adult Z68.41 [facility] [address] [place] [address] Sep, 2018 Pelvic pain R10.2 ; Chronic GERD K21.9 and BMI 40.0-44.9, adult Z68.41 [place] [address] [place] [id number] [address] [place] [address] Jul, [facility] [place] [address] [address] Apr, Sore throat J02.9 ; Acute re current streptococcal tonsillitis J03.01 and BMI 40.0-44.9, adult Z68.41 [facility] [place] [id number] [place] [address] Mar, Sore throat J02.9 and Acute non-recurrent streptococcal tonsillitis J03.00 [place] [id number] [place] [address] Feb, [facility] [address] [id number] [id number] Jan, Anxiety and depression F41.[address] [facility] [id number] [place] [id number] Dec, [place] [id number] [place] [address] Nov, [place] [address] [id number] [place] [address] Jun, Normal in multigra sonny Z34.80 and First trimester Z33.[address] [address] Jun, Slow transit constipation K5 9.01 and Ota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 ear H92.01 [place] [address] [place] [address] May, [facility] [address] [id number] [address] [place] [address] May, Late menses N91.0 and Acute suppurative otitis media of left ear without spontaneous rupture of tympanic membrane, recurrence not specified H66.002 [facility] [address] [id number] [address] [place] [address] May, [facility] [id number] [place] [address] Apr, [facility] [address] [facility] [id number] [address] [place] [address] Apr, Vaginal discharge N89.8 and Vaginal yeast infection B37.3 [place] [address] [id number] [place] [address] Mar, [facility] [address] [address] Feb, [facility] [id number] [place] [address] Feb, [facility] [address] [address] 15 Feb, 2016 Abnormal cholesterol test E7 8.9 [place] [address] [address] 14 Feb, 2016 History of UTI Z87.440 ; Mix ed hyperlipidemia E78.2 and Abnormal thyroid blood test R94.6 [facility] [address] [place] [address] Jan, [place] [address] [id number] [place] [address] Jan, [place] [address] [address] Jan, Chest pain, unspecified type R07.9 ; Palpitations R00.2 ; Hyperlipidemia, unspecified hyperlipidemia type E78.5 and Dyspnea, unspecified type R06.00 [place] [address] [id number] [place] [address] Jan, [facility] [address] [address] Dec, [facility] [id number] [place] [address] Dec, Upper respiratory tract infe ction, unspecified type J06.9 [place] [address] [address] Dec, Major depressive disorder, s kelly episode, unspecified F32.9 and Panic attacks F41.0 [place] [address] [address] Nov, History of anemia Z86.2 ; Ab normal thyroid blood test R94.6 ; Mixed hyperlipidemia E78.2 ; Migraine headache G43.909 and Acute maxillary sinusitis, recurrence not specified J01.00 [place] [address] [address] Nov, 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 898 ; Pain in left knee M25.562 and Pain in right knee M25.561 [place] [address] [address] Sep, Pelvic pain in female 625.9 [place] [address] [address] Sep, Pelvic pain R10.2 ; Galactor shahriar in female N64.3 ; Knee pain, left M25.562 and Knee pain, right M25.561 [facility] [address] [address] 17 Aug, 2015 Cough R05 and Laceration of thumb, left S61.012A [place] [address] [address] 09 Aug, 2015 Cough R05 ; History of UTI Z 87.440 and Contraception management Z30.9 [place] [address] [address] 02 Aug, 2015 History of UTI Z87.440 and I rregular menses N92.6 [place] [address] [address] 18 Jul, 2015 Leukopenia D72.819 and Neutr openia D70.9 [place] [address] [address] 18 Jul, 2015 Leukopenia D72.819 and Neutr openia D70.9 [place] [address] [address] 17 Jul, 2015 Migraine headache G43.909 ; Heart burn R12 and History of long-term use of multiple prescription drugs Z92.29 [facility] [address] [address] 15 Jul, 2015 Vaginal discharge N89.8 ; Hi gh risk sexual behavior Z72.51 ; Unprotected sex Z72.51 ; Acute upper respiratory infection, unspecified J06.9 and Other viral agents as the cause of diseases classified elsewhere B97.89 [place] [address] [address] 04 Jul, 2015 Sore throat J02.9 ; Sinusiti s J32.9 and Fever R50.9 [place] [address] [address] Jun, Migraine headache G43.909 an d Heart burn R12 [place] [address] [address] 14 Jun, 2015 [place] [address] [address] 07 Jun, 2015 [place] [address] [address] 06 Jun, 2015 Evaluation regarding contrac eption options Z30.09 ; Encounter for Depo-Provera contraception Z30.42 ; 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 269A [facility] [address] [address] May, Sore throat J02.9 [place] [address] [address] 24 Feb, 2015 Pelvic pain in female 625.9 and Menorrhagia 626.2 [place] [address] [address] Dec, Diarrhea 787.91 [place] [address] [address] Dec, Pelvic pain in female 625.9 and Ganglion cyst of wrist 727.41 [place] [address] [address] Nov, Eczema 692.9 [place] [address] [address] 12 Nov, 2014 [facility] [place] [facility] [address] [id number] [address] [place] [address], [place] [address] 14 Sep, 2014 [facility] [address] [id number] [address] [place] [address], [place] [address] Sep, [facility] [address] [id number] [address] [place] [address], [place] [address] Jul, [facility] [address] [id number] [address] [place] [address], [place] [address] Jul, [facility] [address] [id number] [address] [place] [address], [place] [address] Jun, [facility] [address] [id number] [address] [place] [address], [place] [address] Jun, [facility] [address] [id number] [address] [place] [address], [place] [address] Jun, [facility] [address] [id number] [address] [place] [address], [place] [address] Jun, [facility] [address] [id number] [address] [place] [address], [place] [address] Jun, [facility] [address] [id number] [address] [place] [address], [place] [address] Jun, [facility] [address] [id number] [address] [place] [address], [place] [address] Jun, [facility] [address] [id number] [address] [place] [address], [place] [address] Jun, [facility] [address] [id number] [address] [place] [address], [place] [address] May, [facility] [address] [id number] [address] [place] [address], [place] [address] May, [facility] [address] [id number] [address] [place] [address], [place] [address] May, [facility] [address] [id number] [address] [place] [address], [place] [address] May, [facility] [place] [facility] [address] [id number] [address] [place] [address], [place] [address] Apr, [facility] [place] [facility] [address] [id number] [address] [place] [address], [place] [address] Apr, [facility] [place] [facility] [address] [id number] [address] [place] [address], [place] [address] Apr, [facility] [place] [facility] [address] [id number] [address] [place] [address], [place] [address] Apr, [facility] [place] [facility] [address] [id number] [address] [place] [address], [place] [address] Apr, [facility] [place] [facility] [address] [id number] [address] [place] [address], [place] [address] Apr, [facility] [place] [facility] [address] [id number] [address] [place] [address], [place] [address] Feb, [facility] [place] [facility] [address] [id number] [address] [place] [address], [place] [address] 29 Feb, 2014 [facility] [place] [facility] [address] [id number] [address] [place] [address], [place] [address] Feb, [facility] [place] [facility] [address] [id number] [address] [place] [address], [place] [address] Feb, [facility] [place] [facility] [address] [id number] [address] [place] [address], [place] [address] Feb, 2013 [facility] [place] [facility] [address] [id number] [address] [place] [address], [place] [address] 26 Feb, 2013 [facility] [place] [facility] [address] [id number] [address] [place] [address], [place] [address] 25 Feb, 2014 [facility] [place] [facility] [address] [id number] [address] [place] [address], [place] [address] 25 Feb, 2013 [facility] [place] [facility] [address] [id number] [address] [place] [address], [place] [address] 23 Feb, 2013 [facility] [place] [facility] [address] [id number] [facility] [place] [address] 23 Feb, 2013 [facility] [address] [id number] [facility] [place] [address] 22 Feb, 2013 [facility] [address] [id number] [facility] [place] [address] 22 Feb, 2013 [facility] [address] [id number] [address] [place] [address], [place] [address] 19 Feb, 2013 [facility] [address] [id number] [address] [place] [address], [place] [address] 19 Feb, 2013 [facility] [address] [id number] [address] [place] [address], [place] [address] 12 Feb, 2013 [facility] [address] [id number] [address] [place] [address], [place] [address] 10 Feb, 2013 [facility] [address] [id number] [address] [place] [address], [place] [address] 10 Feb, 2013 [facility] [address] [id number] [address] [place] [address], [place] [address] 04 Feb, 2013 [facility] [address] [id number] [address] [place] [address], [place] [address] 03 Feb, 2013 [facility] [address] [id number] [address] [place] [address], [place] [address] 03 Feb, 2013 [facility] [address] [id number] [address] [place] [address], [place] [address] Jan, [facility] [address] [id number] [address] [place] [address], [place] [address] Jan, [facility] [address] [id number] [address] [place] [address], [place] [address] Jan, [facility] [address] [id number] [address] [place] [address], [place] [address] Jan, [facility] [address] [id number] [address] [place] [address], [place] [address] Jan, [facility] [place] [facility] [address] [id number] [address] [place] [address], [place] [address] Jan, [facility] [place] [facility] [address] [id number] [address] [place] [address], [place] [address] Jan, [facility] [address] [id number] [address] [place] [address], [place] [address] Jan, [facility] [place] [facility] [address] [id number] [address] [place] [address], [place] [address] Dec, [facility] [address] [id number] [address] [place] [address], [place] [address] Dec, [facility] [address] [id number] [address] [place] [address], [place] [address] Dec, [facility] [address] [id number] [address] [place] [address], [place] [address] Dec, [facility] [address] [id number] [address] [place] [address], [place] [address] Dec, [facility] [address] [id number] [address] [place] [address], [place] [address] Dec, [facility] [address] [id number] [address] [place] [address], [place] [address] Dec, [facility] [address] [id number] [address] [place] [address], [place] [address] Dec, [facility] [place] [facility] [address] [id number] [address] [place] [address], [place] [address] Dec, [facility] [place] [facility] [address] [id number] [address] [place] [address], [place] [address] Dec, [facility] [place] [facility] [address] [id number] [address] [place] [address], [place] [address] Dec, [facility] [place] [facility] [address] [id number] [address] [place] [address], [place] [address] Dec, [facility] [place] [facility] [address] [id number] [address] [place] [address], [place] [address] Nov, [facility] [address] [id number] [address] [place] [address], [place] [address] Nov, [facility] [address] [id number] [address] [place] [address], [place] [address] Nov, [facility] [address] [id number] [address] [place] [address], [place] [address] Nov, [facility] [address] [id number] [address] [place] [address], [place] [address] Nov, [facility] [address] [id number] [address] [place] [address], [place] [address] Nov, [facility] [address] [id number] [address] [place] [address], [place] [address] Nov, [facility] [address] [id number] [address] [place] [address], [place] [address] Nov, [facility] [address] [id number] [address] [place] [address], [place] [address] Nov, [facility] [address] [id number] [address] [place] [address], [place] [address] Nov, [facility] [address] [id number] [address] [place] [address], [place] [address] October, [facility] [address] [id number] [address] [place] [address], [place] [address] October, [facility] [address] [id number] [address] [place] [address], [place] [address] October, [facility] [place] [facility] [address] [id number] [address] [place] [address], [place] [address] October, [facility] [place] [facility] [address] [id number] [address] [place] [address], [place] [address] October, [facility] [address] [id number] [address] [place] [address], [place] [address] October, [facility] [place] [facility] [address] [id number] [facility] [place] [address] Sep, [facility] [address] [id number] [address] [place] [address], [place] [address] Sep, [facility] [address] [id number] [address] [place] [address], [place] [address] Sep, [facility] [address] [id number] [address] [place] [address], [place] [address] Sep, [facility] [address] [id number] [address] [place] [address], [place] [address] Sep, [facility] [address] [id number] [address] [place] [address], [place] [address] Sep, [facility] [address] [id number] [address] [place] [address], [place] [address] Aug, [facility] [address] [id number] [address] [place] [address], [place] [address] Aug, [facility] [address] [id number] [address] [place] [address], [place] [address] Aug, [facility] [address] [id number] [address] [place] [address], [place] [address] Aug, [facility] [address] [id number] [address] [place] [address], [place] [address] Aug, [facility] [address] [id number] [address] [place] [address], [place] [address] Jun, [facility] [address] [id number] [address] [place] [address], [place] [address] Jun, [facility] [address] [id number] [address] [place] [address], [place] [address] Jun, [facility] [address] [id number] [address] [place] [address], [place] [address] Jun, [facility] [address] [id number] [address] [place] [address], [place] [address] Jun, [facility] [address] [facility] [id number] [address] [place] [id number] Jun, [facility] [address] [facility] [id number] [address] [place] [id number] Jun, [facility] [address] [facility] [id number] [address] [place] [id number] Mar, [facility] [address] [facility] [id number] [address] [place] [id number] Mar, IMMUNIZATIONS No Known Immunizations SOCIAL HISTORY [...]
--- OUTSIDE RECORDS SUMMARY | 2019-08-12 20:16 | XMS REPORT ---
Author Author Bridgett Cleveland Organization [facility] Address [address] [place] [address] Care Team Providers Care Hand I Tube Bender Name Role Phone SARAH Cleveland Unavailable PROBLEMS Type Condition ICD9-CM Code PZP39-NN Code Onset Dates Condition S tatus SNOMED Code Problem Migraine headache G43.909 Active 37 642824 Problem Mixed hyperlipidemia E78.2 Active [id number] ALLERGIES No Information ENCOUNTERS Encounter Location Date Diagnosis [facility] [id number] [address] [place] [address] Feb, Mixed hyperlipidemia E78.2 ; Palpitations R00.2 and Abnormal thyroid blood test R94.6 [facility] [id number] [place] [address] Dec, [facility] [address] [address] Dec, [facility] [id number] [place] [address] Nov, Exercise counseling Z71.82 [facility] [address] [id number] [address] [place] [address] Nov, Impetigo L01.00 and Morbid o besity E66.01 [facility] [address] [id number] [address] [place] [address] Nov, Exercise counseling Z71.82 [facility] [address] [id number] [address] [place] [address] October, Exercise counseling Z71.82 [facility] [id number] [place] [address] October, Exercise counseling Z71.82 [facility] [id number] [place] [address] Sep, Mixed hyperlipidemia E78.2 ; Weight loss counseling, encounter for Z71.3 ; 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 and Morbid obesity E66.01 [facility] [address] [address] Sep, Exercise counseling Z71.82 [facility] [address] [address] Sep, Exercise counseling Z71.82 [place] [address] [address] Sep, Exercise counseling Z71.82 [place] [address] [place] [id number] [place] [address] Sep, Exercise counseling Z71.82 [facility] [address] [address] Aug, Screening for diabetes melli tus Z13.1 [place] [address] [address] Aug, Screening for diabetes melli tus Z13.1 [place] [address] [address] Aug, Exercise counseling Z71.82 [place] [address] [address] Aug, Encounter for initial prescr iption of contraceptive pills Z30.011 ; Contraception management Z30.9 ; Contraceptive education Z30.09 ; Mixed hyperlipidemia E78.2 ; Weight loss counseling, encounter for Z71.3 ; Screening for diabetes mellitus Z13.1 ; Screening for thyroid disorder Z13.29 ; History of anemia Z86.2 and Morbid obesity E66.01 [facility] [address] [id number] [address] [place] [address] October, Seasonal allergic rhinitis, unspecified trigger J30.2 and BMI 40.0-44.9, adult Z68.41 [place] [address] [address] 04 Sep, 2018 Pelvic pain R10.2 ; Chronic GERD K21.9 and BMI 40.0-44.9, adult Z68.41 [place] [address] [address] Jul, [facility] [address] [address] Apr, Sore throat J02.9 ; Acute re current streptococcal tonsillitis J03.01 and BMI 40.0-44.9, adult Z68.41 [facility] [place] [address] [address] 09 Mar, 2017 Sore throat J02.9 and Acute non-recurrent streptococcal tonsillitis J03.[address] [address] Feb, [facility] [id number] [place] [id number] Jan, Anxiety and depression F41.8 [facility] [id number] [place] [id number] Dec, [address] [address] Nov, [place] [address] [address] Jun, Normal in multigra sonny Z34.80 and First trimester Z33.[address] [address] Jun, Slow transit constipation K5 9.01 and Ota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 ear H92.[address] [address] May, [facility] [address] [facility] [id number] [address] [place] [address] May, Late menses N91.0 and Acute suppurative otitis media of left ear without spontaneous rupture of tympanic membrane, recurrence not specified H66.002 [facility] [address] [facility] [id number] [address] [place] [address] May, [facility] [address] [facility] [id number] [address] [place] [address] Apr, [facility] [address] [facility] [id number] [address] [place] [address] Apr, Vaginal discharge N89.8 and Vaginal yeast infection B37.3 [place] [address] [facility] [id number] [address] [place] [address] Mar, [facility] [address] [address] [id number] [address] [place] [address] Feb, [facility] [address] [facility] [id number] [address] [place] [address] Feb, [facility] [id number] [place] [address] 15 Feb, 2016 Abnormal cholesterol test E7 8.9 [place] [address] [id number] [place] [address] 14 Feb, 2016 History of UTI Z87.440 ; Mix ed hyperlipidemia E78.2 and Abnormal thyroid blood test R94.6 [facility] [address] [place] [address] Jan, [place] [address] [facility] [id number] [address] [place] [address] Jan, [place] [address] [id number] [place] [address] Jan, Chest pain, unspecified type R07.9 ; Palpitations R00.2 ; Hyperlipidemia, unspecified hyperlipidemia type E78.5 and Dyspnea, unspecified type R06.00 [place] [address] [place] [id number] [place] [address] Jan, [facility] [address] [address] Dec, [facility] [address] [address] Dec, Upper respiratory tract infe ction, unspecified type J06.9 [place] [address] [address] Dec, Major depressive disorder, s kelly episode, unspecified F32.9 and Panic attacks F41.0 [place] [address] [address] Nov, History of anemia Z86.2 ; Ab normal thyroid blood test R94.6 ; Mixed hyperlipidemia E78.2 ; Migraine headache G43.909 and Acute maxillary sinusitis, recurrence not specified J01.00 [place] [address] [address] Nov, 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 898 ; Pain in left knee M25.562 and Pain in right knee M25.561 [place] [address] [address] Sep, Pelvic pain in female 625.9 [place] [address] [address] Sep, Pelvic pain R10.2 ; Galactor shahriar in female N64.3 ; Knee pain, left M25.562 and Knee pain, right M25.561 [facility] [address] [address] 17 Aug, 2015 Cough R05 and Laceration of thumb, left S61.012A [place] [address] [address] 09 Aug, 2015 Cough R05 ; History of UTI Z 87.440 and Contraception management Z30.9 [place] [address] [address] 02 Aug, 2015 History of UTI Z87.440 and I rregular menses N92.6 [place] [address] [address] 18 Jul, 2015 Leukopenia D72.819 and Neutr openia D70.9 [place] [address] [address] 18 Jul, 2015 Leukopenia D72.819 and Neutr openia D70.9 [place] [address] [address] 17 Jul, 2015 Migraine headache G43.909 ; Heart burn R12 and History of long-term use of multiple prescription drugs Z92.29 [facility] [address] [address] 15 Jul, 2015 Vaginal discharge N89.8 ; Hi gh risk sexual behavior Z72.51 ; Unprotected sex Z72.51 ; Acute upper respiratory infection, unspecified J06.9 and Other viral agents as the cause of diseases classified elsewhere B97.89 [place] [address] [address] 04 Jul, 2015 Sore throat J02.9 ; Sinusiti s J32.9 and Fever R50.9 [place] [address] [address] Jun, Migraine headache G43.909 an d Heart burn R12 [place] [address] [address] 14 Jun, 2015 [place] [address] [address] 07 Jun, 2015 [place] [address] [address] 06 Jun, 2015 Evaluation regarding contrac eption options Z30.09 ; Encounter for Depo-Provera contraception Z30.42 ; 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 [address] [address] 03 May, 2015 Insect bite of shoulder S40. 269A [facility] [address] [address] May, Sore throat J02.[address] [address] 24 Feb, 2015 Pelvic pain in female 625.9 and Menorrhagia 626.[address] [address] Dec, Diarrhea 787.[address] [address] Dec, Pelvic pain in female 625.9 and Ganglion cyst of wrist 727.41 [place] [address] [place] [id number] [place] [address] Nov, Eczema 692.9 [place] [address] [address] Nov, [facility] [address] [id number] [address] [place] [address], [place] [address] Sep, [facility] [address] [id number] [address] [place] [address], [place] [address] Sep, [facility] [address] [id number] [address] [place] [address], [place] [address] Jul, [facility] [address] [id number] [address] [place] [address], [place] [address] Jul, [facility] [address] [id number] [address] [place] [address], [place] [address] Jun, [facility] [address] [id number] [address] [place] [address], [place] [address] Jun, [facility] [address] [id number] [address] [place] [address], [place] [address] Jun, [facility] [address] [id number] [address] [place] [address], [place] [address] Jun, [facility] [address] [id number] [address] [place] [address], [place] [address] Jun, [facility] [address] [id number] [address] [place] [address], [place] [address] Jun, [facility] [address] [id number] [address] [place] [address], [place] [address] Jun, [facility] [address] [id number] [address] [place] [address] Jun, [facility] [address] [id number] [address] [place] [address], [place] [address] May, [facility] [address] [id number] [address] [place] [address], [place] [address] May, [facility] [address] [id number] [address] [place] [address], [place] [address] May, [facility] [address] [id number] [address] [place] [address] May, [facility] [address] [id number] [address] [place] [address], [place] [address] Apr, [facility] [address] [id number] [address] [place] [address], [place] [address] Apr, [facility] [address] [id number] [address] [place] [address], [place] [address] Apr, [facility] [address] [id number] [address] [place] [address], [place] [address] Apr, [facility] [address] [id number] [address] [place] [address], [place] [address] Apr, [facility] [address] [id number] [address] [place] [address], [place] [address] Apr, [facility] [address] [id number] [address] [place] [address], [place] [address] Feb, [facility] [address] [id number] [address] [place] [address], [place] [address] 29 Feb, 2014 [facility] [address] [id number] [address] [place] [address], [place] [address] Feb, [facility] [address] [id number] [address] [place] [address], [place] [address] Feb, [facility] [address] [id number] [address] [place] [address], [place] [address] Feb, 2013 [facility] [address] [id number] [address] [place] [address], [place] [address] Feb, 2013 [facility] [address] [id number] [address] [place] [address], [place] [address] 25 Feb, 2014 [facility] [address] [id number] [address] [place] [address], [place] [address] 25 Feb, 2013 [facility] [address] [id number] [address] [place] [address], [place] [address] 23 Feb, 2013 [facility] [address] [id number] [facility] [place] [address] 23 Feb, 2013 [facility] [address] [id number] [facility] [place] [address] 22 Feb, 2013 [facility] [address] [id number] [facility] [place] [address] 22 Feb, 2013 [facility] [address] [id number] [address] [place] [address], [place] [address] 19 Feb, 2013 [facility] [address] [id number] [facility] [place] [address] 19 Feb, 2013 [facility] [address] [id number] [address] [place] [address], [place] [address] 12 Feb, 2013 [facility] [address] [id number] [address] [place] [address], [place] [address] 10 Feb, 2013 [facility] [address] [id number] [address] [place] [address], [place] [address] 10 Feb, 2013 [facility] [address] [id number] [address] [place] [address], [place] [address] 04 Feb, 2013 [facility] [address] [id number] [address] [place] [address], [place] [address] 03 Feb, 2013 [facility] [address] [id number] [address] [place] [address], [place] [address] Feb, 2013 [facility] [address] [id number] [address] [place] [address], [place] [address] Jan, [facility] [address] [id number] [address] [place] [address], [place] [address] Jan, [facility] [address] [id number] [address] [place] [address], [place] [address] Jan, [facility] [address] [id number] [address] [place] [address], [place] [address] Jan, [facility] [address] [id number] [address] [place] [address], [place] [address] Jan, [facility] [address] [id number] [facility] [place] [address] Jan, [facility] [address] [id number] [address] [place] [address], [place] [address] Jan, [facility] [address] [id number] [address] [place] [address], [place] [address] Jan, [facility] [address] [id number] [address] [place] [address], [place] [address] Dec, [facility] [address] [id number] [address] [place] [address], [place] [address] Dec, [facility] [address] [id number] [address] [place] [address], [place] [address] Dec, [facility] [address] [id number] [address] [place] [address], [place] [address] Dec, [facility] [address] [id number] [address] [place] [address], [place] [address] Dec, [facility] [address] [id number] [address] [place] [address], [place] [address] Dec, [facility] [address] [id number] [address] [place] [address], [place] [address] Dec, [facility] [address] [id number] [address] [place] [address], [place] [address] Dec, [facility] [address] [id number] [address] [place] [address], [place] [address] Dec, [facility] [address] [id number] [address] [place] [address], [place] [address] Dec, [facility] [address] [id number] [address] [place] [address], [place] [address] Dec, [facility] [address] [id number] [address] [place] [address], [place] [address] Dec, [facility] [address] [id number] [address] [place] [address], [place] [address] Nov, [facility] [address] [id number] [address] [place] [address], [place] [address] Nov, [facility] [address] [id number] [address] [place] [address], [place] [address] Nov, [facility] [address] [id number] [address] [place] [address], [place] [address] Nov, [facility] [address] [id number] [address] [place] [address], [place] [address] Nov, [facility] [address] [id number] [address] [place] [address], [place] [address] Nov, [facility] [address] [id number] [address] [place] [address], [place] [address] Nov, [facility] [address] [id number] [address] [place] [address], [place] [address] Nov, [facility] [address] [id number] [address] [place] [address], [place] [address] Nov, [facility] [address] [id number] [address] [place] [address], [place] [address] Nov, [facility] [address] [id number] [address] [place] [address], [place] [address] October, [facility] [address] [id number] [address] [place] [address], [place] [address] October, [facility] [address] [id number] [address] [place] [address], [place] [address] October, [facility] [address] [id number] [address] [place] [address], [place] [address] October, [facility] [address] [id number] [address] [place] [address], [place] [address] October, [facility] [address] [id number] [address] [place] [address], [place] [address] October, [facility] [address] [id number] [facility] [place] [address] Sep, [facility] [address] [id number] [facility] [place] [address] Sep, [facility] [address] [id number] [address] [place] [address], [place] [address] Sep, [facility] [address] [id number] [address] [place] [address], [place] [address] Sep, [facility] [address] [id number] [address] [place] [address], [place] [address] Sep, [facility] [address] [id number] [address] [place] [address], [place] [address] Sep, [facility] [address] [id number] [address] [place] [address], [place] [address] Aug, [facility] [address] [id number] [address] [place] [address], [place] [address] Aug, [facility] [address] [id number] [address] [place] [address], [place] [phone] Aug, [facility] [address] [id number] [address] [place] [address], [place] [phone] Aug, [facility] [address] [id number] [address] [place] [address], [place] [phone] Aug, [facility] [address] [id number] [address] [place] [address], [place] [phone] Jun, [facility] [address] [id number] [address] [place] [address], [place] [phone] Jun, [facility] [address] [id number] [address] [place] [address], [place] [id number] Jun, [facility] [address] [id number] [address] [place] [address], [place] [id number] Jun, [facility] [address] [id number] [address] [place] [address], [place] [id number] Jun, [facility] [address] [facility] [id number] [address] [place] [phone] Jun, [facility] [address] [facility] [id number] [address] [place] [phone] Jun, [facility] [address] [facility] [id number] [address] [place] [phone] Mar, [facility] [address] [facility] [id number] [address] [place] [phone] Mar, IMMUNIZATIONS Vaccine Route Administration Date Status FLU Vaccine (History) Unknown Apr 26, 2014 Administer ed SOCIAL HISTORY Never Assessed REASON FOR VISIT PLAN OF CARE VITAL SIGNS Height 65 in 2014-04-26 Weight 240.6 lbs 2014-04-26 Temperature 97.6 degrees Fahrenheit 2014-04-26 Heart Rate 86 bpm 2014-04-26 Respiratory Rate 20 2014-04-26 Blood pressure systolic 120 mmHg 2014-04-26 Blood pressure diastolic 78 mmHg 2014-04-26 MEDICATIONS Unknown Medications RESULTS No Results PROCEDURES [...]
--- OUTSIDE RECORDS SUMMARY | 2019-08-12 20:16 | XMS REPORT ---
Author Author Bridgett TORRES [facility] Address [address] [place] [address] Care Team Providers Care Fleet Sales Associate Name Role Phone ESTEFANIA TORRES Unavailable PROBLEMS Type Condition ICD9-CM Code IOH20-ZI Code Onset Dates Condition S tatus SNOMED Code Problem Migraine headache G43.909 Active 37 896930 Problem Mixed hyperlipidemia E78.2 Active [id number] ALLERGIES No Information ENCOUNTERS Encounter Location Date Diagnosis [facility] [address] [place] [id number] [address] [place] [address] Feb, Mixed hyperlipidemia E78.2 ; Palpitations R00.2 and Abnormal thyroid blood test R94.6 [facility] [address] [facility] [id number] [address] [place] [phone] Dec, [facility] [address] [facility] [id number] [address] [place] [address] Dec, [facility] [address] [place] [id number] [address] [place] [address] Nov, Exercise counseling Z71.82 [facility] [address] [id number] [address] [place] [address] Nov, Impetigo L01.00 and Morbid o besity E66.01 [facility] [address] [facility] [id number] [address] [place] [address] Nov, Exercise counseling Z71.82 [facility] [address] [place] [id number] [address] [place] [address] October, Exercise counseling Z71.82 [facility] [address] [place] [id number] [address] [place] [address] October, Exercise counseling Z71.82 [facility] [address] [facility] [id number] [address] [place] [address] Sep, Mixed hyperlipidemia E78.2 ; Weight loss counseling, encounter for Z71.3 ; 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66[address]01 [facility] [address] [facility] [id number] [address] [place] [address] Sep, Exercise counseling Z71.82 [place] [address] [facility] [id number] [address] [place] [address] Sep, Exercise counseling Z71.82 [place] [address] [facility] [id number] [place] [address] Sep, Exercise counseling Z71.82 [place] [address] [place] [address] Sep, Exercise counseling Z71.82 [place] [address] [address] Aug, Screening for diabetes melli tus Z13.1 [place] [address] [address] Aug, Screening for diabetes melli tus Z13.1 [place] [address] [place] [id number] [address] [place] [address] Aug, Exercise counseling Z71.82 [place] [address] [address] Aug, Encounter for initial prescr iption of contraceptive pills Z30.011 ; Contraception management Z30.9 ; Contraceptive education Z30.09 ; Mixed hyperlipidemia E78.2 ; Weight loss counseling, encounter for Z71.3 ; Screening for diabetes mellitus Z13.1 ; Screening for thyroid disorder Z13.29 ; History of anemia Z86.2 and Morbid obesity E66.01 [facility] [address] [facility] [id number] [address] [place] [address] October, Seasonal allergic rhinitis, unspecified trigger J30.2 and BMI 40.0-44.9, adult Z68.41 [facility] [address] [place] [address] Sep, 2018 Pelvic pain R10.2 ; Chronic GERD K21.9 and BMI 40.0-44.9, adult Z68.41 [place] [address] [place] [id number] [address] [place] [address] Jul, [facility] [place] [address] [address] Apr, Sore throat J02.9 ; Acute re current streptococcal tonsillitis J03.01 and BMI 40.0-44.9, adult Z68.41 [facility] [place] [address] [id number] [place] [address] Mar, Sore throat J02.9 and Acute non-recurrent streptococcal tonsillitis J03.00 [place] [id number] [address] [place] [address] Feb, [facility] [address] [id number] [id number] Jan, Anxiety and depression F41.8 [facility] [id number] [place] [id number] Dec, [place] [id number] [address] [place] [address] Nov, [place] [address] [address] [id number] [place] [address] Jun, Normal in multigra sonny Z34.80 and First trimester Z33.[address] [address] Jun, Slow transit constipation K5 9.01 and Ota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 ear H92.01 [place] [address] [place] [address] May, [facility] [address] [id number] [address] [place] [address] May, Late menses N91.0 and Acute suppurative otitis media of left ear without spontaneous rupture of tympanic membrane, recurrence not specified H66.002 [facility] [address] [place] [id number] [address] [place] [address] May, [facility] [address] [id number] [place] [address] Apr, [facility] [address] [facility] [id number] [address] [place] [address] Apr, Vaginal discharge N89.8 and Vaginal yeast infection B37.3 [place] [address] [id number] [place] [address] Mar, [facility] [address] [address] Feb, [facility] [address] [id number] [place] [address] Feb, [facility] [address] [address] 15 Feb, 2016 Abnormal cholesterol test E7 8.9 [place] [address] [address] 14 Feb, 2016 History of UTI Z87.440 ; Mix ed hyperlipidemia E78.2 and Abnormal thyroid blood test R94.6 [facility] [address] [place] [address] Jan, [place] [address] [id number] [place] [address] Jan, [place] [address] [address] Jan, Chest pain, unspecified type R07.9 ; Palpitations R00.2 ; Hyperlipidemia, unspecified hyperlipidemia type E78.5 and Dyspnea, unspecified type R06.00 [place] [address] [place] [address] [place] [address] Jan, [facility] [address] [address] Dec, [facility] [address] [id number] [place] [address] Dec, Upper respiratory tract infe ction, unspecified type J06.9 [place] [address] [address] Dec, Major depressive disorder, s kelly episode, unspecified F32.9 and Panic attacks F41.0 [place] [address] [address] Nov, History of anemia Z86.2 ; Ab normal thyroid blood test R94.6 ; Mixed hyperlipidemia E78.2 ; Migraine headache G43.909 and Acute maxillary sinusitis, recurrence not specified J01.00 [place] [address] [address] Nov, 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 898 ; Pain in left knee M25.562 and Pain in right knee M25.561 [place] [address] [address] Sep, Pelvic pain in female 625.9 [place] [address] [address] Sep, Pelvic pain R10.2 ; Galactor shahriar in female N64.3 ; Knee pain, left M25.562 and Knee pain, right M25.561 [facility] [address] [address] 17 Aug, 2015 Cough R05 and Laceration of thumb, left S61.012A [place] [address] [address] 09 Aug, 2015 Cough R05 ; History of UTI Z 87.440 and Contraception management Z30.9 [place] [address] [address] 02 Aug, 2015 History of UTI Z87.440 and I rregular menses N92.6 [place] [address] [address] 18 Jul, 2015 Leukopenia D72.819 and Neutr openia D70.9 [place] [address] [address] 18 Jul, 2015 Leukopenia D72.819 and Neutr openia D70.9 [place] [address] [address] 17 Jul, 2015 Migraine headache G43.909 ; Heart burn R12 and History of long-term use of multiple prescription drugs Z92.29 [facility] [address] [address] 15 Jul, 2015 Vaginal discharge N89.8 ; Hi gh risk sexual behavior Z72.51 ; Unprotected sex Z72.51 ; Acute upper respiratory infection, unspecified J06.9 and Other viral agents as the cause of diseases classified elsewhere B97.89 [place] [address] [address] 04 Jul, 2015 Sore throat J02.9 ; Sinusiti s J32.9 and Fever R50.9 [place] [address] [address] Jun, Migraine headache G43.909 an d Heart burn R12 [place] [address] [address] 14 Jun, 2015 [place] [address] [address] 07 Jun, 2015 [place] [address] [address] 06 Jun, 2015 Evaluation regarding contrac eption options Z30.09 ; Encounter for Depo-Provera contraception Z30.42 ; Encntr for senior trainer exam (general) (routine) w/o abn findings Z01.419 ; Pelvic pain R10.2 ; Migraine headache G43.909 and Vaginal discharge N89.8 [place] [address] [address] 10 May, 2015 Overweight E66.3 ; Encounter for immunization Z23 ; Pain of right thumb M79.644 and Headache R51 [facility] [address] [address] 03 May, 2015 Insect bite of shoulder S40. 269A [facility] [address] [address] May, Sore throat J02.9 [place] [address] [address] 24 Feb, 2015 Pelvic pain in female 625.9 and Menorrhagia 626.2 [place] [address] [address] Dec, Diarrhea 787.91 [place] [address] [address] Dec, Pelvic pain in female 625.9 and Ganglion cyst of wrist 727.41 [place] [address] [address] Nov, Eczema 692.9 [place] [address] [address] 12 Nov, 2014 [facility] [place] [facility] [address] [id number] [address] [place] [address], [place] [address] 14 Sep, 2014 [facility] [address] [id number] [address] [place] [address], [place] [address] Sep, [facility] [address] [id number] [address] [place] [address], [place] [address] Jul, [facility] [address] [id number] [address] [place] [address], [place] [address] Jul, [facility] [address] [id number] [address] [place] [address], [place] [address] Jun, [facility] [address] [id number] [address] [place] [address], [place] [address] Jun, [facility] [address] [id number] [address] [place] [address], [place] [address] Jun, [facility] [address] [id number] [address] [place] [address], [place] [address] Jun, [facility] [address] [id number] [address] [place] [address], [place] [address] Jun, [facility] [address] [id number] [address] [place] [address], [place] [address] Jun, [facility] [address] [id number] [address] [place] [address], [place] [address] Jun, [facility] [address] [id number] [address] [place] [address], [place] [address] Jun, [facility] [address] [id number] [address] [place] [address], [place] [address] May, [facility] [address] [id number] [address] [place] [address], [place] [address] May, [facility] [address] [id number] [address] [place] [address], [place] [address] May, [facility] [address] [id number] [address] [place] [address], [place] [address] May, [facility] [place] [facility] [address] [id number] [address] [place] [address], [place] [address] Apr, [facility] [place] [facility] [address] [id number] [address] [place] [address], [place] [address] Apr, [facility] [place] [facility] [address] [id number] [address] [place] [address], [place] [address] Apr, [facility] [place] [facility] [address] [id number] [address] [place] [address], [place] [address] Apr, [facility] [place] [facility] [address] [id number] [address] [place] [address], [place] [address] Apr, [facility] [place] [facility] [address] [id number] [address] [place] [address], [place] [address] Apr, [facility] [place] [facility] [address] [id number] [address] [place] [address], [place] [address] Feb, [facility] [place] [facility] [address] [id number] [address] [place] [address], [place] [address] 29 Feb, 2014 [facility] [place] [facility] [address] [id number] [address] [place] [address], [place] [address] Feb, [facility] [place] [facility] [address] [id number] [address] [place] [address], [place] [address] Feb, [facility] [place] [facility] [address] [id number] [address] [place] [address], [place] [address] Feb, 2013 [facility] [place] [facility] [address] [id number] [address] [place] [address], [place] [address] 26 Feb, 2013 [facility] [place] [facility] [address] [id number] [address] [place] [address], [place] [address] 25 Feb, 2014 [facility] [place] [facility] [address] [id number] [address] [place] [address], [place] [address] 25 Feb, 2013 [facility] [place] [facility] [address] [id number] [address] [place] [address], [place] [address] 23 Feb, 2013 [facility] [place] [facility] [address] [id number] [facility] [place] [address] 23 Feb, 2013 [facility] [address] [id number] [facility] [place] [address] 22 Feb, 2013 [facility] [address] [id number] [facility] [place] [address] 22 Feb, 2013 [facility] [address] [id number] [address] [place] [address], [place] [address] 19 Feb, 2013 [facility] [address] [id number] [address] [place] [address], [place] [address] 19 Feb, 2013 [facility] [address] [id number] [address] [place] [address], [place] [address] 12 Feb, 2013 [facility] [address] [id number] [address] [place] [address], [place] [address] 10 Feb, 2013 [facility] [address] [id number] [address] [place] [address], [place] [address] 10 Feb, 2013 [facility] [address] [id number] [address] [place] [address], [place] [address] 04 Feb, 2013 [facility] [address] [id number] [address] [place] [address], [place] [address] 03 Feb, 2013 [facility] [address] [id number] [address] [place] [address], [place] [address] 03 Feb, 2013 [facility] [address] [id number] [address] [place] [address], [place] [address] Jan, [facility] [address] [id number] [address] [place] [address], [place] [address] Jan, [facility] [address] [id number] [address] [place] [address], [place] [address] Jan, [facility] [address] [id number] [address] [place] [address], [place] [address] Jan, [facility] [address] [id number] [address] [place] [address], [place] [address] Jan, [facility] [place] [facility] [address] [id number] [address] [place] [address], [place] [address] Jan, [facility] [place] [facility] [address] [id number] [address] [place] [address], [place] [address] Jan, [facility] [address] [id number] [address] [place] [address], [place] [address] Jan, [facility] [place] [facility] [address] [id number] [address] [place] [address], [place] [address] Dec, [facility] [address] [id number] [address] [place] [address], [place] [address] Dec, [facility] [address] [id number] [address] [place] [address], [place] [address] Dec, [facility] [address] [id number] [address] [place] [address], [place] [address] Dec, [facility] [address] [id number] [address] [place] [address], [place] [address] Dec, [facility] [address] [id number] [address] [place] [address], [place] [address] Dec, [facility] [address] [id number] [address] [place] [address], [place] [address] Dec, [facility] [address] [id number] [address] [place] [address], [place] [address] Dec, [facility] [place] [facility] [address] [id number] [address] [place] [address], [place] [address] Dec, [facility] [place] [facility] [address] [id number] [address] [place] [address], [place] [address] Dec, [facility] [place] [facility] [address] [id number] [address] [place] [address], [place] [address] Dec, [facility] [place] [facility] [address] [id number] [address] [place] [address], [place] [address] Dec, [facility] [place] [facility] [address] [id number] [address] [place] [address], [place] [address] Nov, [facility] [address] [id number] [address] [place] [address], [place] [address] Nov, [facility] [address] [id number] [address] [place] [address], [place] [address] Nov, [facility] [address] [id number] [address] [place] [address], [place] [address] Nov, [facility] [address] [id number] [address] [place] [address], [place] [address] Nov, [facility] [address] [id number] [address] [place] [address], [place] [address] Nov, [facility] [address] [id number] [address] [place] [address], [place] [address] Nov, [facility] [address] [id number] [address] [place] [address], [place] [address] Nov, [facility] [address] [id number] [address] [place] [address], [place] [address] Nov, [facility] [address] [id number] [address] [place] [address], [place] [address] Nov, [facility] [address] [id number] [address] [place] [address], [place] [address] October, [facility] [address] [id number] [address] [place] [address], [place] [address] October, [facility] [address] [id number] [address] [place] [address], [place] [address] October, [facility] [place] [facility] [address] [id number] [address] [place] [address], [place] [address] October, [facility] [place] [facility] [address] [id number] [address] [place] [address], [place] [address] October, [facility] [address] [id number] [address] [place] [address], [place] [address] October, [facility] [place] [facility] [address] [id number] [facility] [place] [address] Sep, [facility] [address] [id number] [address] [place] [address], [place] [address] Sep, [facility] [address] [id number] [address] [place] [address], [place] [address] Sep, [facility] [address] [id number] [address] [place] [address], [place] [address] Sep, [facility] [address] [id number] [address] [place] [address], [place] [address] Sep, [facility] [address] [id number] [address] [place] [address], [place] [address] Sep, [facility] [address] [id number] [address] [place] [address], [place] [address] Aug, [facility] [address] [id number] [address] [place] [address], [place] [address] Aug, [facility] [address] [id number] [address] [place] [address], [place] [address] Aug, [facility] [address] [id number] [address] [place] [address], [place] [address] Aug, [facility] [address] [id number] [address] [place] [address], [place] [address] Aug, [facility] [address] [id number] [address] [place] [address], [place] [address] Jun, [facility] [address] [id number] [address] [place] [address], [place] [address] Jun, [facility] [address] [id number] [address] [place] [address], [place] [address] Jun, [facility] [address] [id number] [address] [place] [address], [place] [address] Jun, [facility] [address] [id number] [address] [place] [address], [place] [address] Jun, [facility] [address] [facility] [id number] [address] [place] [id number] Jun, [facility] [address] [facility] [id number] [address] [place] [id number] Jun, [facility] [address] [facility] [id number] [address] [place] [id number] Mar, [facility] [address] [facility] [id number] [address] [place] [id number] Mar, IMMUNIZATIONS No Known Immunizations SOCIAL HISTORY [...]
--- OUTSIDE RECORDS SUMMARY | 2019-08-12 20:16 | XMS REPORT ---
Author Author Bridgett TAYLOR [facility] Address [address] [place] [address] Care Team Providers Care Marketing Education Teacher Name Role Phone LUDIVINA TAYLOR Unavailable PROBLEMS Type Condition ICD9-CM Code POT43-IM Code Onset Dates Condition S tatus SNOMED Code Problem Migraine headache G43.909 Active 37 565878 Problem Mixed hyperlipidemia E78.2 Active [id number] ALLERGIES No Information ENCOUNTERS Encounter Location Date Diagnosis [facility] [address] [address] Feb, Mixed hyperlipidemia E78.2 ; Palpitations R00.2 and Abnormal thyroid blood test R94.6 [facility] [address] [place] [id number] [address] [place] [address] Dec, [facility] [address] [address] Dec, [facility] [address] [place] [id number] [address] [place] [address] Nov, Exercise counseling Z71.82 [facility] [address] [id number] [address] [place] [address] Nov, Impetigo L01.00 and Morbid o besity E66.01 [facility] [address] [place] [id number] [address] [place] [address] Nov, Exercise counseling Z71.82 [facility] [address] [place] [id number] [address] [place] [address] October, Exercise counseling Z71.82 [facility] [address] [id number] [address] [place] [address] October, Exercise counseling Z71.82 [facility] [address] [place] [id number] [address] [place] [address] Sep, Mixed hyperlipidemia E78.2 ; Weight loss counseling, encounter for Z71.3 ; 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 and Morbid obesity E66.01 [facility] [address] [address] Sep, Exercise counseling Z71.82 [facility] [address] [address] Sep, Exercise counseling Z71.82 [place] [address] [address] Sep, Exercise counseling Z71.82 [facility] [address] [address] Sep, Exercise counseling Z71.82 [facility] [address] [address] Aug, Screening for diabetes melli tus Z13.1 [facility] [address] [address] Aug, Screening for diabetes melli tus Z13.1 [place] [id number] [address] Aug, Exercise counseling Z71.82 [facility] [address] [address] Aug, Encounter for initial prescr iption of contraceptive pills Z30.011 ; Contraception management Z30.9 ; Contraceptive education Z30.09 ; Mixed hyperlipidemia E78.2 ; Weight loss counseling, encounter for Z71.3 ; Screening for diabetes mellitus Z13.1 ; Screening for thyroid disorder Z13.29 ; History of anemia Z86.2 and Morbid obesity E66.01 [facility] [address] [place] [id number] [address] [place] [address] October, Seasonal allergic rhinitis, unspecified trigger J30.2 and BMI 40.0-44.9, adult Z68.41 [place] [address] [place] [id number] [place] [address] 04 Sep, 2018 Pelvic pain R10.2 ; Chronic GERD K21.9 and BMI 40.0-44.9, adult Z68.41 [place] [address] [place] [id number] [place] [address] Jul, [facility] [place] [address] [address] Apr, Sore throat J02.9 ; Acute re current streptococcal tonsillitis J03.01 and BMI 40.0-44.9, adult Z68.41 [facility] [place] [address] [address] 09 Mar, 2017 Sore throat J02.9 and Acute non-recurrent streptococcal tonsillitis J03.00 [place] [address] [address] Feb, [facility] [id number] [place] [id number] Jan, Anxiety and depression F41.8 [facility] [id number] [place] [id number] Dec, [place] [id number] [address] [place] [address] Nov, [place] [address] [address] Jun, Normal in multigra sonny Z34.80 and First trimester Z33.[address] [address] Jun, Slow transit constipation K5 9.01 and Ota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 ear H92.01 [place] [id number] [address] [place] [address] May, [facility] [address] [facility] [id number] [address] [place] [address] May, Late menses N91.0 and Acute suppurative otitis media of left ear without spontaneous rupture of tympanic membrane, recurrence not specified H66.002 [facility] [address] [facility] [id number] [address] [place] [address] May, [facility] [address] [place] [id number] [place] [address] Apr, [facility] [address] [facility] [id number] [address] [place] [address] Apr, Vaginal discharge N89.8 and Vaginal yeast infection B37.3 [place] [address] [address] [facility] [id number] [address] [place] [address] Mar, [facility] [address] [address] Feb, [facility] [address] [place] [id number] [address] [place] [address] Feb, [place] [address] [address] 15 Feb, 2016 Abnormal cholesterol test E7 8.9 [place] [address] [address] 14 Feb, 2016 History of UTI Z87.440 ; Mix ed hyperlipidemia E78.2 and Abnormal thyroid blood test R94.6 [facility] [address] [place] [address] Jan, [place] [address] [place] [id number] [place] [address] Jan, [place] [address] [address] Jan, Chest pain, unspecified type R07.9 ; Palpitations R00.2 ; Hyperlipidemia, unspecified hyperlipidemia type E78.5 and Dyspnea, unspecified type R06.00 [place] [address] [address] Jan, [facility] [address] [address] Dec, [facility] [address] [address] Dec, Upper respiratory tract infe ction, unspecified type J06.9 [place] [address] [address] Dec, Major depressive disorder, s kelly episode, unspecified F32.9 and Panic attacks F41.0 [place] [address] [address] Nov, History of anemia Z86.2 ; Ab normal thyroid blood test R94.6 ; Mixed hyperlipidemia E78.2 ; Migraine headache G43.909 and Acute maxillary sinusitis, recurrence not specified J01.00 [place] [address] [address] Nov, 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 898 ; Pain in left knee M25.562 and Pain in right knee M25.561 [place] [address] [address] Sep, Pelvic pain in female 625.9 [place] [address] [address] Sep, Pelvic pain R10.2 ; Galactor shahriar in female N64.3 ; Knee pain, left M25.562 and Knee pain, right M25.561 [facility] [address] [address] 17 Aug, 2015 Cough R05 and Laceration of thumb, left S61.012A [place] [address] [address] 09 Aug, 2015 Cough R05 ; History of UTI Z 87.440 and Contraception management Z30.9 [place] [address] [address] 02 Aug, 2015 History of UTI Z87.440 and I rregular menses N92.6 [place] [address] [address] 18 Jul, 2015 Leukopenia D72.819 and Neutr openia D70.9 [place] [address] [address] 18 Jul, 2015 Leukopenia D72.819 and Neutr openia D70.9 [place] [address] [address] 17 Jul, 2015 Migraine headache G43.909 ; Heart burn R12 and History of long-term use of multiple prescription drugs Z92.29 [facility] [address] [address] 15 Jul, 2015 Vaginal discharge N89.8 ; Hi gh risk sexual behavior Z72.51 ; Unprotected sex Z72.51 ; Acute upper respiratory infection, unspecified J06.9 and Other viral agents as the cause of diseases classified elsewhere B97.89 [place] [address] [address] 04 Jul, 2015 Sore throat J02.9 ; Sinusiti s J32.9 and Fever R50.9 [place] [address] [address] Jun, Migraine headache G43.909 an d Heart burn R12 [place] [address] [address] 14 Jun, 2015 [place] [address] [address] 07 Jun, 2015 [place] [address] [address] 06 Jun, 2015 Evaluation regarding contrac eption options Z30.09 ; Encounter for Depo-Provera contraception Z30.42 ; 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 269A [facility] [address] [address] May, Sore throat J02.9 [place] [id number] [address] [place] [address] 24 Feb, 2015 Pelvic pain in female 625.9 and Menorrhagia 626.[address] [address] Dec, Diarrhea 787.91 [place] [id number] [address] [place] [address] Dec, Pelvic pain in female 625.9 and Ganglion cyst of wrist 727.41 [place] [address] [place] [id number] [place] [address] Nov, Eczema 692.9 [place] [address] [address] Nov, [facility] [address] [id number] [address] [place] [address], [place] [address] Sep, [facility] [address] [id number] [address] [place] [address], [place] [address] Sep, [facility] [address] [id number] [address] [place] [address], [place] [address] Jul, [facility] [address] [id number] [address] [place] [address], [place] [address] Jul, [facility] [address] [id number] [address] [place] [address], [place] [address] Jun, [facility] [address] [id number] [address] [place] [address], [place] [address] Jun, [facility] [address] [id number] [address] [place] [address], [place] [address] Jun, [facility] [address] [id number] [address] [place] [address], [place] [address] Jun, [facility] [address] [id number] [address] [place] [address], [place] [address] Jun, [facility] [address] [id number] [address] [place] [address] Jun, [facility] [address] [id number] [address] [place] [address], [place] [address] Jun, [facility] [address] [id number] [address] [place] [phone] Jun, [facility] [address] [id number] [address] [place] [address], [place] [address] May, [facility] [address] [id number] [address] [place] [address], [place] [address] May, [facility] [address] [id number] [address] [place] [address] May, [facility] [address] [id number] [address] [place] [address], [place] [address] May, [facility] [address] [id number] [address] [place] [address], [place] [address] Apr, [facility] [address] [id number] [address] [place] [address], [place] [address] Apr, [facility] [address] [id number] [address] [place] [address], [place] [address] Apr, [facility] [address] [id number] [address] [place] [address], [place] [address] Apr, [facility] [address] [id number] [address] [place] [address], [place] [address] Apr, [facility] [address] [id number] [address] [place] [address], [place] [address] Apr, [facility] [address] [id number] [address] [place] [address], [place] [address] Feb, [facility] [address] [id number] [address] [place] [address], [place] [address] 29 Feb, 2014 [facility] [address] [id number] [address] [place] [address], [place] [address] Feb, [facility] [address] [id number] [address] [place] [address], [place] [address] Feb, 2013 [facility] [address] [id number] [address] [place] [address], [place] [address] Feb, 2013 [facility] [address] [id number] [address] [place] [address], [place] [address] 26 Feb, 2013 [facility] [address] [id number] [address] [place] [address], [place] [address] 25 Feb, 2014 [facility] [address] [id number] [address] [place] [address], [place] [address] 25 Feb, 2013 [facility] [address] [id number] [address] [place] [address], [place] [address] 23 Feb, 2013 [facility] [address] [id number] [facility] [place] [address] 23 Feb, 2013 [facility] [address] [id number] [facility] [place] [address] 22 Feb, 2013 [facility] [address] [id number] [facility] [place] [address] 22 Feb, 2013 [facility] [address] [id number] [facility] [place] [address] 19 Feb, 2013 [facility] [address] [id number] [facility] [place] [address] 19 Feb, 2013 [facility] [address] [id number] [address] [place] [address], [place] [address] 12 Feb, 2013 [facility] [address] [id number] [address] [place] [address], [place] [address] 10 Feb, 2013 [facility] [address] [id number] [address] [place] [address], [place] [address] 10 Feb, 2013 [facility] [address] [id number] [address] [place] [address], [place] [address] 04 Feb, 2013 [facility] [address] [id number] [address] [place] [address], [place] [address] 03 Feb, 2013 [facility] [address] [id number] [address] [place] [address], [place] [address] 03 Feb, 2013 [facility] [address] [id number] [address] [place] [address], [place] [address] Jan, [facility] [address] [id number] [address] [place] [address], [place] [address] Jan, [facility] [address] [id number] [address] [place] [address], [place] [address] Jan, [facility] [address] [id number] [address] [place] [address], [place] [address] Jan, [facility] [address] [id number] [address] [place] [address], [place] [address] Jan, [facility] [address] [id number] [facility] [place] [address] Jan, [facility] [address] [id number] [facility] [place] [address] Jan, [facility] [address] [id number] [facility] [place] [address] Jan, [facility] [address] [id number] [address] [place] [address], [place] [address] Dec, [facility] [address] [id number] [address] [place] [address], [place] [address] Dec, [facility] [address] [id number] [address] [place] [address], [place] [address] Dec, [facility] [address] [id number] [address] [place] [address], [place] [address] Dec, [facility] [address] [id number] [address] [place] [address], [place] [address] Dec, [facility] [address] [id number] [address] [place] [address], [place] [address] Dec, [facility] [address] [id number] [address] [place] [address], [place] [address] Dec, [facility] [address] [id number] [address] [place] [address], [place] [address] Dec, [facility] [address] [id number] [address] [place] [address], [place] [address] Dec, [facility] [address] [id number] [address] [place] [address], [place] [address] Dec, [facility] [address] [id number] [address] [place] [address], [place] [address] Dec, [facility] [address] [id number] [address] [place] [address], [place] [address] Dec, [facility] [address] [id number] [facility] [place] [address] Nov, [facility] [address] [id number] [address] [place] [address], [place] [address] Nov, [facility] [address] [id number] [address] [place] [address], [place] [address] Nov, [facility] [address] [id number] [address] [place] [address], [place] [address] Nov, [facility] [address] [id number] [address] [place] [address], [place] [address] Nov, [facility] [address] [id number] [address] [place] [address], [place] [address] Nov, [facility] [address] [id number] [address] [place] [address], [place] [address] Nov, [facility] [address] [id number] [address] [place] [address], [place] [address] Nov, [facility] [address] [id number] [address] [place] [address], [place] [address] Nov, [facility] [address] [id number] [address] [place] [address], [place] [address] Nov, [facility] [address] [id number] [address] [place] [address], [place] [address] October, [facility] [address] [id number] [address] [place] [address], [place] [address] October, [facility] [address] [id number] [address] [place] [address], [place] [address] October, [facility] [address] [id number] [address] [place] [address], [place] [address] October, [facility] [address] [id number] [address] [place] [address], [place] [address] October, [facility] [address] [id number] [address] [place] [address], [place] [address] October, [facility] [address] [id number] [facility] [place] [address] Sep, [facility] [address] [id number] [facility] [place] [address] Sep, [facility] [address] [id number] [address] [place] [address], [place] [address] Sep, [facility] [address] [id number] [address] [place] [address], [place] [address] Sep, [facility] [address] [id number] [address] [place] [address], [place] [address] Sep, [facility] [address] [id number] [address] [place] [address], [place] [address] Sep, [facility] [address] [id number] [address] [place] [address], [place] [address] Aug, [facility] [address] [id number] [address] [place] [address], [place] [address] Aug, [facility] [address] [id number] [address] [place] [address], [place] [address] Aug, [facility] [address] [id number] [address] [place] [address], [place] [address] Aug, [facility] [address] [id number] [address] [place] [address], [place] [address] Aug, [facility] [address] [id number] [address] [place] [address], [place] [address] Jun, [facility] [address] [id number] [address] [place] [address], [place] [address] Jun, [facility] [address] [id number] [address] [place] [address], [place] [address] Jun, [facility] [address] [id number] [address] [place] [address], [place] [address] Jun, [facility] [address] [id number] [address] [address] Jun, [facility] [address] [facility] [id number] [address] [place] [id number] Jun, [facility] [address] [facility] [id number] [address] [place] [id number] Jun, [facility] [address] [facility] [id number] [address] [place] [id number] Mar, [facility] [address] [facility] [id number] [address] [place] [id number] Mar, IMMUNIZATIONS No Known Immunizations SOCIAL HISTORY Never Assessed REASON FOR VISIT Fitness assessment PLAN OF CARE Activity Details Follow Up 1 Week Reason: VITAL SIGNS MEDICATIONS Unknown Medications RESULTS No [...]
--- OUTSIDE RECORDS SUMMARY | 2019-08-12 20:16 | XMS REPORT ---
Author Author Bridgett TORRES [facility] Address [address] [place] [address] Care Team Providers Care Guard Entrance Registrar Name Role Phone ESTEFANIA TORRES Unavailable PROBLEMS Type Condition ICD9-CM Code GQP11-IB Code Onset Dates Condition S tatus SNOMED Code Problem Migraine headache G43.909 Active 37 768315 Problem Mixed hyperlipidemia E78.2 Active [id number] ALLERGIES No Information ENCOUNTERS Encounter Location Date Diagnosis [facility] [address] [id number] [place] [address] Feb, Mixed hyperlipidemia E78.2 ; Palpitations R00.2 and Abnormal thyroid blood test R94.6 [facility] [address] [facility] [id number] [address] [place] [address] Dec, [facility] [address] [facility] [id number] [address] [place] [address] Dec, [facility] [address] [id number] [address] [place] [address] Nov, Exercise counseling Z71.82 [facility] [address] [id number] [address] [place] [address] Nov, Impetigo L01.00 and Morbid o besity E66.01 [facility] [address] [facility] [id number] [address] [place] [address] Nov, Exercise counseling Z71.82 [facility] [address] [id number] [address] [place] [address] October, Exercise counseling Z71.82 [facility] [address] [id number] [address] [place] [address] October, Exercise counseling Z71.82 [facility] [address] [facility] [id number] [address] [place] [address] Sep, Mixed hyperlipidemia E78.2 ; Weight loss counseling, encounter for Z71.3 ; 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 and Morbid obesity E66.01 [facility] [address] [facility] [id number] [address] [place] [address] Sep, Exercise counseling Z71.82 [place] [address] [facility] [id number] [address] [place] [address] Sep, Exercise counseling Z71.82 [place] [address] [facility] [id number] [place] [address] Sep, Exercise counseling Z71.82 [place] [address] [place] [address] Sep, Exercise counseling Z71.82 [place] [address] [address] Aug, Screening for diabetes melli tus Z13.1 [place] [address] [address] Aug, Screening for diabetes melli tus Z13.1 [place] [address] [place] [id number] [address] [place] [address] Aug, Exercise counseling Z71.82 [place] [address] [address] Aug, Encounter for initial prescr iption of contraceptive pills Z30.011 ; Contraception management Z30.9 ; Contraceptive education Z30.09 ; Mixed hyperlipidemia E78.2 ; Weight loss counseling, encounter for Z71.3 ; Screening for diabetes mellitus Z13.1 ; Screening for thyroid disorder Z13.29 ; History of anemia Z86.2 and Morbid obesity E66.01 [facility] [address] [facility] [id number] [address] [place] [address] October, Seasonal allergic rhinitis, unspecified trigger J30.2 and BMI 40.0-44.9, adult Z68.41 [facility] [address] [place] [address] Sep, 2018 Pelvic pain R10.2 ; Chronic GERD K21.9 and BMI 40.0-44.9, adult Z68.41 [place] [address] [id number] [address] [place] [address] Jul, [facility] [place] [address] [address] Apr, Sore throat J02.9 ; Acute re current streptococcal tonsillitis J03.01 and BMI 40.0-44.9, adult Z68.41 [facility] [place] [id number] [place] [address] Mar, Sore throat J02.9 and Acute non-recurrent streptococcal tonsillitis J03.00 [place] [id number] [place] [address] Feb, [facility] [address] [id number] [id number] Jan, Anxiety and depression F41.8 [facility] [id number] [place] [id number] Dec, [place] [id number] [place] [address] Nov, [place] [address] [id number] [place] [address] Jun, Normal in multigra sonny Z34.80 and First trimester Z33.[address] [address] Jun, Slow transit constipation K5 9.01 and Ota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 ear H92.01 [place] [address] [place] [address] May, [facility] [address] [id number] [address] [place] [address] May, Late menses N91.0 and Acute suppurative otitis media of left ear without spontaneous rupture of tympanic membrane, recurrence not specified H66.002 [facility] [address] [id number] [address] [place] [address] May, [facility] [id number] [place] [address] Apr, [facility] [address] [facility] [id number] [address] [place] [address] Apr, Vaginal discharge N89.8 and Vaginal yeast infection B37.3 [place] [address] [id number] [place] [address] Mar, [facility] [address] [address] Feb, [facility] [address] [id number] [place] [address] Feb, [facility] [address] [address] 15 Feb, 2016 Abnormal cholesterol test E7 8.9 [place] [address] [address] 14 Feb, 2016 History of UTI Z87.440 ; Mix ed hyperlipidemia E78.2 and Abnormal thyroid blood test R94.6 [facility] [address] [place] [address] Jan, [place] [address] [address] [id number] [place] [address] Jan, [place] [address] [address] Jan, Chest pain, unspecified type R07.9 ; Palpitations R00.2 ; Hyperlipidemia, unspecified hyperlipidemia type E78.5 and Dyspnea, unspecified type R06.00 [place] [address] [place] [address] [address] Jan, [facility] [address] [address] Dec, [facility] [id number] [place] [address] Dec, Upper respiratory tract infe ction, unspecified type J06.9 [place] [address] [address] Dec, Major depressive disorder, s kelly episode, unspecified F32.9 and Panic attacks F41.0 [place] [address] [address] Nov, History of anemia Z86.2 ; Ab normal thyroid blood test R94.6 ; Mixed hyperlipidemia E78.2 ; Migraine headache G43.909 and Acute maxillary sinusitis, recurrence not specified J01.00 [place] [address] [address] Nov, 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 898 ; Pain in left knee M25.562 and Pain in right knee M25.561 [place] [address] [address] Sep, Pelvic pain in female 625.9 [place] [address] [address] Sep, Pelvic pain R10.2 ; Galactor shahriar in female N64.3 ; Knee pain, left M25.562 and Knee pain, right M25.561 [facility] [address] [address] 17 Aug, 2015 Cough R05 and Laceration of thumb, left S61.012A [place] [address] [address] 09 Aug, 2015 Cough R05 ; History of UTI Z 87.440 and Contraception management Z30.9 [place] [address] [address] 02 Aug, 2015 History of UTI Z87.440 and I rregular menses N92.6 [place] [address] [address] 18 Jul, 2015 Leukopenia D72.819 and Neutr openia D70.9 [place] [address] [address] 18 Jul, 2015 Leukopenia D72.819 and Neutr openia D70.9 [place] [address] [address] 17 Jul, 2015 Migraine headache G43.909 ; Heart burn R12 and History of long-term use of multiple prescription drugs Z92.29 [facility] [address] [address] 15 Jul, 2015 Vaginal discharge N89.8 ; Hi gh risk sexual behavior Z72.51 ; Unprotected sex Z72.51 ; Acute upper respiratory infection, unspecified J06.9 and Other viral agents as the cause of diseases classified elsewhere B97.89 [place] [address] [address] 04 Jul, 2015 Sore throat J02.9 ; Sinusiti s J32.9 and Fever R50.9 [place] [address] [address] Jun, Migraine headache G43.909 an d Heart burn R12 [place] [address] [address] 14 Jun, 2015 [place] [address] [address] 07 Jun, 2015 [place] [address] [address] 06 Jun, 2015 Evaluation regarding contrac eption options Z30.09 ; Encounter for Depo-Provera contraception Z30.42 ; 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 269A [facility] [address] [address] May, Sore throat J02.9 [place] [address] [address] 24 Feb, 2015 Pelvic pain in female 625.9 and Menorrhagia 626.2 [place] [address] [address] Dec, Diarrhea 787.91 [place] [address] [address] Dec, Pelvic pain in female 625.9 and Ganglion cyst of wrist 727.41 [place] [address] [address] Nov, Eczema 692.9 [place] [address] [address] 12 Nov, 2014 [facility] [place] [facility] [address] [id number] [address] [place] [address], [place] [address] 14 Sep, 2014 [facility] [address] [id number] [address] [place] [address], [place] [address] Sep, [facility] [address] [id number] [address] [place] [address], [place] [address] Jul, [facility] [address] [id number] [address] [place] [address], [place] [address] Jul, [facility] [address] [id number] [address] [place] [address], [place] [address] Jun, [facility] [address] [id number] [address] [place] [address], [place] [address] Jun, [facility] [address] [id number] [address] [place] [address], [place] [address] Jun, [facility] [address] [id number] [address] [place] [address], [place] [address] Jun, [facility] [address] [id number] [address] [place] [address], [place] [address] Jun, [facility] [address] [id number] [address] [place] [address], [place] [address] Jun, [facility] [address] [id number] [address] [place] [address], [place] [address] Jun, [facility] [address] [id number] [address] [place] [address], [place] [address] Jun, [facility] [address] [id number] [address] [place] [address], [place] [address] May, [facility] [address] [id number] [address] [place] [address], [place] [address] May, [facility] [address] [id number] [address] [place] [address], [place] [address] May, [facility] [address] [id number] [address] [place] [address], [place] [address] May, [facility] [place] [facility] [address] [id number] [address] [place] [address], [place] [address] Apr, [facility] [place] [facility] [address] [id number] [address] [place] [address], [place] [address] Apr, [facility] [place] [facility] [address] [id number] [address] [place] [address], [place] [address] Apr, [facility] [place] [facility] [address] [id number] [address] [place] [address], [place] [address] Apr, [facility] [place] [facility] [address] [id number] [address] [place] [address], [place] [address] Apr, [facility] [place] [facility] [address] [id number] [address] [place] [address], [place] [address] Apr, [facility] [place] [facility] [address] [id number] [address] [place] [address], [place] [address] Feb, [facility] [place] [facility] [address] [id number] [address] [place] [address], [place] [address] 29 Feb, 2014 [facility] [place] [facility] [address] [id number] [address] [place] [address], [place] [address] Feb, [facility] [place] [facility] [address] [id number] [address] [place] [address], [place] [address] Feb, [facility] [place] [facility] [address] [id number] [address] [place] [address], [place] [address] Feb, 2013 [facility] [place] [facility] [address] [id number] [address] [place] [address], [place] [address] 26 Feb, 2013 [facility] [place] [facility] [address] [id number] [address] [place] [address], [place] [address] 25 Feb, 2014 [facility] [place] [facility] [address] [id number] [address] [place] [address], [place] [address] 25 Feb, 2013 [facility] [place] [facility] [address] [id number] [address] [place] [address], [place] [address] 23 Feb, 2013 [facility] [place] [facility] [address] [id number] [facility] [place] [address] 23 Feb, 2013 [facility] [address] [id number] [facility] [place] [address] 22 Feb, 2013 [facility] [address] [id number] [facility] [place] [address] 22 Feb, 2013 [facility] [address] [id number] [address] [place] [address], [place] [address] 19 Feb, 2013 [facility] [address] [id number] [address] [place] [address], [place] [address] 19 Feb, 2013 [facility] [address] [id number] [address] [place] [address], [place] [address] 12 Feb, 2013 [facility] [address] [id number] [address] [place] [address], [place] [address] 10 Feb, 2013 [facility] [address] [id number] [address] [place] [address], [place] [address] 10 Feb, 2013 [facility] [address] [id number] [address] [place] [address], [place] [address] 04 Feb, 2013 [facility] [address] [id number] [address] [place] [address], [place] [address] 03 Feb, 2013 [facility] [address] [id number] [address] [place] [address], [place] [address] 03 Feb, 2013 [facility] [address] [id number] [address] [place] [address], [place] [address] Jan, [facility] [address] [id number] [address] [place] [address], [place] [address] Jan, [facility] [address] [id number] [address] [place] [address], [place] [address] Jan, [facility] [address] [id number] [address] [place] [address], [place] [address] Jan, [facility] [address] [id number] [address] [place] [address], [place] [address] Jan, [facility] [place] [facility] [address] [id number] [address] [place] [address], [place] [address] Jan, [facility] [place] [facility] [address] [id number] [address] [place] [address], [place] [address] Jan, [facility] [address] [id number] [address] [place] [address], [place] [address] Jan, [facility] [place] [facility] [address] [id number] [address] [place] [address], [place] [address] Dec, [facility] [address] [id number] [address] [place] [address], [place] [address] Dec, [facility] [address] [id number] [address] [place] [address], [place] [address] Dec, [facility] [address] [id number] [address] [place] [address], [place] [address] Dec, [facility] [address] [id number] [address] [place] [address], [place] [address] Dec, [facility] [address] [id number] [address] [place] [address], [place] [address] Dec, [facility] [address] [id number] [address] [place] [address], [place] [address] Dec, [facility] [address] [id number] [address] [place] [address], [place] [address] Dec, [facility] [place] [facility] [address] [id number] [address] [place] [address], [place] [address] Dec, [facility] [place] [facility] [address] [id number] [address] [place] [address], [place] [address] Dec, [facility] [place] [facility] [address] [id number] [address] [place] [address], [place] [address] Dec, [facility] [place] [facility] [address] [id number] [address] [place] [address], [place] [address] Dec, [facility] [place] [facility] [address] [id number] [address] [place] [address], [place] [address] Nov, [facility] [address] [id number] [address] [place] [address], [place] [address] Nov, [facility] [address] [id number] [address] [place] [address], [place] [address] Nov, [facility] [address] [id number] [address] [place] [address], [place] [address] Nov, [facility] [address] [id number] [address] [place] [address], [place] [address] Nov, [facility] [address] [id number] [address] [place] [address], [place] [address] Nov, [facility] [address] [id number] [address] [place] [address], [place] [address] Nov, [facility] [address] [id number] [address] [place] [address], [place] [address] Nov, [facility] [address] [id number] [address] [place] [address], [place] [address] Nov, [facility] [address] [id number] [address] [place] [address], [place] [address] Nov, [facility] [address] [id number] [address] [place] [address], [place] [address] October, [facility] [address] [id number] [address] [place] [address], [place] [address] October, [facility] [address] [id number] [address] [place] [address], [place] [address] October, [facility] [place] [facility] [address] [id number] [address] [place] [address], [place] [address] October, [facility] [place] [facility] [address] [id number] [address] [place] [address], [place] [address] October, [facility] [address] [id number] [address] [place] [address], [place] [address] October, [facility] [place] [facility] [address] [id number] [facility] [place] [address] Sep, [facility] [address] [id number] [address] [place] [address], [place] [address] Sep, [facility] [address] [id number] [address] [place] [address], [place] [address] Sep, [facility] [address] [id number] [address] [place] [address], [place] [address] Sep, [facility] [address] [id number] [address] [place] [address], [place] [address] Sep, [facility] [address] [id number] [address] [place] [address], [place] [address] Sep, [facility] [address] [id number] [address] [place] [address], [place] [address] Aug, [facility] [address] [id number] [address] [place] [address], [place] [address] Aug, [facility] [address] [id number] [address] [place] [address], [place] [address] Aug, [facility] [address] [id number] [address] [place] [address], [place] [address] Aug, [facility] [address] [id number] [address] [place] [address], [place] [address] Aug, [facility] [address] [id number] [address] [place] [address], [place] [address] Jun, [facility] [address] [id number] [address] [place] [address], [place] [address] Jun, [facility] [address] [id number] [address] [place] [address], [place] [address] Jun, [facility] [address] [id number] [address] [place] [address], [place] [address] Jun, [facility] [address] [id number] [address] [place] [address], [place] [address] Jun, [facility] [address] [facility] [id number] [address] [place] [id number] Jun, [facility] [address] [facility] [id number] [address] [place] [id number] Jun, [facility] [address] [facility] [id number] [address] [place] [id number] Mar, [facility] [address] [facility] [id number] [address] [place] [id number] Mar, IMMUNIZATIONS No Known Immunizations SOCIAL HISTORY [...]
--- OUTSIDE RECORDS SUMMARY | 2019-08-12 20:17 | XMS REPORT ---
Author Author Bridgett TORRES [facility] Address [address] [place] [address] Care Team Providers Care Administrative Court Justice Name Role Phone ESTEFANIA TORRES Unavailable PROBLEMS Type Condition ICD9-CM Code POA27-MW Code Onset Dates Condition S tatus SNOMED Code Problem Migraine headache G43.909 Active 37 444367 Problem Mixed hyperlipidemia E78.2 Active [id number] ALLERGIES No Information ENCOUNTERS Encounter Location Date Diagnosis [facility] [address] [id number] [address] [place] [id number] Feb, Mixed hyperlipidemia E78.2 ; Palpitations R00.2 and Abnormal thyroid blood test R94.6 [facility] [address] [facility] [id number] [address] [place] [address] Dec, [facility] [address] [facility] [id number] [address] [place] [phone] Dec, [facility] [address] [id number] [address] [place] [address] Nov, Exercise counseling Z71.82 [facility] [address] [id number] [address] [place] [phone] Nov, Impetigo L01.00 and Morbid o besity E66.01 [facility] [address] [facility] [id number] [address] [place] [address] Nov, Exercise counseling Z71.82 [facility] [address] [id number] [address] [place] [address] October, Exercise counseling Z71.82 [facility] [address] [id number] [address] [place] [address] October, Exercise counseling Z71.82 [facility] [address] 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 [id number] [address] [place] [address] Sep, Exercise counseling Z71.82 [place] [address] [facility] [id number] [address] [place] [phone] Sep, Exercise counseling Z71.82 [place] [address] [facility] [id number] [place] [phone] Sep, Exercise counseling Z71.82 [place] [id number] [place] [address] Sep, Exercise counseling Z71.82 [place] [address] [address] Aug, Screening for diabetes melli tus Z13.1 [place] [address] [address] Aug, Screening for diabetes melli tus Z13.1 [place] [address] [place] [address] [id number] [address] [place] [phone] Aug, Exercise counseling Z71.82 [place] [address] [address] Aug, Encounter for initial prescr iption of contraceptive pills Z30.011 ; Contraception management Z30.9 ; Contraceptive education Z30.09 ; Mixed hyperlipidemia E78.2 ; Weight loss counseling, encounter for Z71.3 ; Screening for diabetes mellitus Z13.1 ; Screening for thyroid disorder Z13.29 ; History of anemia Z86.2 and Morbid obesity E66.01 [facility] [address] [facility] [id number] [address] [place] [phone] October, Seasonal allergic rhinitis, unspecified trigger J30.2 and BMI 40.0-44.9, adult Z68.41 [facility] [address] [place] [address] Sep, 2018 Pelvic pain R10.2 ; Chronic GERD K21.9 and BMI 40.0-44.9, adult Z68.41 [place] [address] [address] [id number] [address] [place] [address] Jul, [facility] [place] [address] [address] Apr, Sore throat J02.9 ; Acute re current streptococcal tonsillitis J03.01 and BMI 40.0-44.9, adult Z68.41 [facility] [place] [id number] [place] [address] Mar, Sore throat J02.9 and Acute non-recurrent streptococcal tonsillitis J03.00 [place] [id number] [place] [address] Feb, [facility] [address] [id number] [id number] Jan, Anxiety and depression F41.8 [facility] [id number] [place] [id number] Dec, [place] [id number] [place] [address] Nov, [place] [address] [id number] [place] [address] Jun, Normal in multigra sonny Z34.80 and First trimester Z33.[address] [address] Jun, Slow transit constipation K5 9.01 and Ota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 ear H92.01 [place] [address] [place] [address] May, [facility] [address] [id number] [address] [place] [address] May, Late menses N91.0 and Acute suppurative otitis media of left ear without spontaneous rupture of tympanic membrane, recurrence not specified H66.002 [facility] [address] [id number] [address] [place] [address] May, [facility] [id number] [place] [address] Apr, [facility] [address] [facility] [id number] [address] [place] [address] Apr, Vaginal discharge N89.8 and Vaginal yeast infection B37.3 [place] [address] [id number] [place] [phone] Mar, [facility] [address] [address] Feb, [facility] [id number] [place] [address] Feb, [facility] [address] [address] 15 Feb, 2016 Abnormal cholesterol test E7 8.9 [place] [address] [address] 14 Feb, 2016 History of UTI Z87.440 ; Mix ed hyperlipidemia E78.2 and Abnormal thyroid blood test R94.6 [facility] [address] [place] [address] Jan, [place] [address] [id number] [place] [address] Jan, [place] [address] [address] Jan, Chest pain, unspecified type R07.9 ; Palpitations R00.2 ; Hyperlipidemia, unspecified hyperlipidemia type E78.5 and Dyspnea, unspecified type R06.00 [place] [address] [place] [address] Jan, [facility] [address] [address] Dec, [facility] [id number] [place] [address] Dec, Upper respiratory tract infe ction, unspecified type J06.9 [place] [address] [address] Dec, Major depressive disorder, s kelly episode, unspecified F32.9 and Panic attacks F41.0 [place] [address] [address] Nov, History of anemia Z86.2 ; Ab normal thyroid blood test R94.6 ; Mixed hyperlipidemia E78.2 ; Migraine headache G43.909 and Acute maxillary sinusitis, recurrence not specified J01.00 [place] [address] [address] Nov, 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 898 ; Pain in left knee M25.562 and Pain in right knee M25.561 [place] [address] [address] Sep, Pelvic pain in female 625.9 [place] [address] [address] Sep, Pelvic pain R10.2 ; Galactor shahriar in female N64.3 ; Knee pain, left M25.562 and Knee pain, right M25.561 [facility] [address] [address] 17 Aug, 2015 Cough R05 and Laceration of thumb, left S61.012A [place] [address] [address] 09 Aug, 2015 Cough R05 ; History of UTI Z 87.440 and Contraception management Z30.9 [place] [address] [address] 02 Aug, 2015 History of UTI Z87.440 and I rregular menses N92.6 [place] [address] [address] 18 Jul, 2015 Leukopenia D72.819 and Neutr openia D70.9 [place] [address] [address] 18 Jul, 2015 Leukopenia D72.819 and Neutr openia D70.9 [place] [address] [address] 17 Jul, 2015 Migraine headache G43.909 ; Heart burn R12 and History of long-term use of multiple prescription drugs Z92.29 [facility] [address] [address] 15 Jul, 2015 Vaginal discharge N89.8 ; Hi gh risk sexual behavior Z72.51 ; Unprotected sex Z72.51 ; Acute upper respiratory infection, unspecified J06.9 and Other viral agents as the cause of diseases classified elsewhere B97.89 [place] [address] [address] 04 Jul, 2015 Sore throat J02.9 ; Sinusiti s J32.9 and Fever R50.9 [place] [address] [address] Jun, Migraine headache G43.909 an d Heart burn R12 [place] [address] [address] 14 Jun, 2015 [place] [address] [address] 07 Jun, 2015 [place] [address] [address] 06 Jun, 2015 Evaluation regarding contrac eption options Z30.09 ; Encounter for Depo-Provera contraception Z30.42 ; Encntr for sanitarian exam (general) (routine) w/o abn findings Z01.419 ; Pelvic pain R10.2 ; Migraine headache G43.909 and Vaginal discharge N89.8 [place] [address] [address] 10 May, 2015 Overweight E66.3 ; Encounter for immunization Z23 ; Pain of right thumb M79.644 and Headache R51 [facility] [address] [address] 03 May, 2015 Insect bite of shoulder S40. 269A [facility] [address] [address] May, Sore throat J02.9 [place] [address] [address] 24 Feb, 2015 Pelvic pain in female 625.9 and Menorrhagia 626.2 [place] [address] [address] Dec, Diarrhea 787.91 [place] [address] [address] Dec, Pelvic pain in female 625.9 and Ganglion cyst of wrist 727.41 [place] [address] [address] Nov, Eczema 692.9 [place] [address] [address] 12 Nov, 2014 [facility] [place] [facility] [address] [id number] [address] [place] [address], [place] [address] 14 Sep, 2014 [facility] [address] [id number] [address] [place] [address], [place] [address] Sep, [facility] [address] [id number] [address] [place] [address], [place] [address] Jul, [facility] [address] [id number] [address] [place] [address], [place] [address] Jul, [facility] [address] [id number] [address] [place] [address], [place] [address] Jun, [facility] [address] [id number] [address] [place] [address], [place] [address] Jun, [facility] [address] [id number] [address] [place] [address], [place] [address] Jun, [facility] [address] [id number] [address] [place] [address], [place] [address] Jun, [facility] [address] [id number] [address] [place] [address], [place] [address] Jun, [facility] [address] [id number] [address] [place] [address], [place] [address] Jun, [facility] [address] [id number] [address] [place] [address], [place] [address] Jun, [facility] [address] [id number] [address] [place] [address], [place] [address] Jun, [facility] [address] [id number] [address] [place] [address], [place] [address] May, [facility] [address] [id number] [address] [place] [address], [place] [address] May, [facility] [address] [id number] [address] [place] [address], [place] [address] May, [facility] [address] [id number] [address] [place] [address], [place] [address] May, [facility] [place] [facility] [address] [id number] [address] [place] [address], [place] [address] Apr, [facility] [place] [facility] [address] [id number] [address] [place] [address], [place] [address] Apr, [facility] [place] [facility] [address] [id number] [address] [place] [address], [place] [address] Apr, [facility] [place] [facility] [address] [id number] [address] [place] [address], [place] [address] Apr, [facility] [place] [facility] [address] [id number] [address] [place] [address], [place] [address] Apr, [facility] [place] [facility] [address] [id number] [address] [place] [address], [place] [address] Apr, [facility] [place] [facility] [address] [id number] [address] [place] [address], [place] [address] Feb, [facility] [place] [facility] [address] [id number] [address] [place] [address], [place] [address] 29 Feb, 2014 [facility] [place] [facility] [address] [id number] [address] [place] [address], [place] [address] Feb, [facility] [place] [facility] [address] [id number] [address] [place] [address], [place] [address] Feb, [facility] [place] [facility] [address] [id number] [address] [place] [address], [place] [address] Feb, 2013 [facility] [place] [facility] [address] [id number] [address] [place] [address], [place] [address] 26 Feb, 2013 [facility] [place] [facility] [address] [id number] [address] [place] [address], [place] [address] 25 Feb, 2014 [facility] [place] [facility] [address] [id number] [address] [place] [address], [place] [address] 25 Feb, 2013 [facility] [place] [facility] [address] [id number] [address] [place] [address], [place] [address] 23 Feb, 2013 [facility] [place] [facility] [address] [id number] [facility] [address] 23 Feb, 2013 [facility] [address] [id number] [facility] [address] 22 Feb, 2013 [facility] [address] [id number] [facility] [address] 22 Feb, 2013 [facility] [address] [id number] [address] [place] [address], [place] [address] 19 Feb, 2013 [facility] [address] [id number] [address] [place] [address], [place] [address] 19 Feb, 2013 [facility] [address] [id number] [address] [place] [address], [place] [address] 12 Feb, 2013 [facility] [address] [id number] [address] [place] [address], [place] [address] 10 Feb, 2013 [facility] [address] [id number] [address] [place] [address], [place] [address] 10 Feb, 2013 [facility] [address] [id number] [address] [place] [address], [place] [address] 04 Feb, 2013 [facility] [address] [id number] [address] [place] [address], [place] [address] 03 Feb, 2013 [facility] [address] [id number] [address] [place] [address], [place] [address] 03 Feb, 2013 [facility] [address] [id number] [address] [place] [address], [place] [address] Jan, [facility] [address] [id number] [address] [place] [address], [place] [address] Jan, [facility] [address] [id number] [address] [place] [address], [place] [address] Jan, [facility] [address] [id number] [address] [place] [address], [place] [address] Jan, [facility] [address] [id number] [address] [place] [address], [place] [address] Jan, [facility] [place] [facility] [address] [id number] [address] [place] [address], [place] [address] Jan, [facility] [place] [facility] [address] [id number] [address] [place] [address], [place] [address] Jan, [facility] [address] [id number] [address] [place] [address], [place] [address] Jan, [facility] [place] [facility] [address] [id number] [address] [place] [address], [place] [address] Dec, [facility] [address] [id number] [address] [place] [address], [place] [address] Dec, [facility] [address] [id number] [address] [place] [address], [place] [address] Dec, [facility] [address] [id number] [address] [place] [address], [place] [address] Dec, [facility] [address] [id number] [address] [place] [address], [place] [address] Dec, [facility] [address] [id number] [address] [place] [address], [place] [address] Dec, [facility] [address] [id number] [address] [place] [address], [place] [address] Dec, [facility] [address] [id number] [address] [place] [address], [place] [address] Dec, [facility] [place] [facility] [address] [id number] [address] [place] [address], [place] [address] Dec, [facility] [place] [facility] [address] [id number] [address] [place] [address], [place] [address] Dec, [facility] [place] [facility] [address] [id number] [address] [place] [address], [place] [address] Dec, [facility] [place] [facility] [address] [id number] [address] [place] [address], [place] [address] Dec, [facility] [place] [facility] [address] [id number] [address] [place] [address], [place] [address] Nov, [facility] [address] [id number] [address] [place] [address], [place] [address] Nov, [facility] [address] [id number] [address] [place] [address], [place] [address] Nov, [facility] [address] [id number] [address] [place] [address], [place] [address] Nov, [facility] [address] [id number] [address] [place] [address], [place] [address] Nov, [facility] [address] [id number] [address] [place] [address], [place] [address] Nov, [facility] [address] [id number] [address] [place] [address], [place] [address] Nov, [facility] [address] [id number] [address] [place] [address], [place] [address] Nov, [facility] [address] [id number] [address] [place] [address], [place] [address] Nov, [facility] [address] [id number] [address] [place] [address], [place] [address] Nov, [facility] [address] [id number] [address] [place] [address], [place] [address] October, [facility] [address] [id number] [address] [place] [address], [place] [address] October, [facility] [address] [id number] [address] [place] [address], [place] [address] October, [facility] [place] [facility] [address] [id number] [address] [place] [address], [place] [address] October, [facility] [place] [facility] [address] [id number] [address] [place] [address], [place] [address] October, [facility] [address] [id number] [address] [place] [address], [place] [address] October, [facility] [place] [facility] [address] [id number] [facility] [address] Sep, [facility] [address] [id number] [address] [place] [address], [place] [address] Sep, [facility] [address] [id number] [address] [place] [address], [place] [address] Sep, [facility] [address] [id number] [address] [place] [address], [place] [address] Sep, [facility] [address] [id number] [address] [place] [address], [place] [address] Sep, [facility] [address] [id number] [address] [place] [address], [place] [address] Sep, [facility] [address] [id number] [address] [place] [address], [place] [id number] Aug, [facility] [address] [id number] [address] [place] [address], [place] [id number] Aug, [facility] [address] [id number] [address] [place] [address], [place] [address] Aug, [facility] [address] [id number] [address] [place] [address], [place] [id number] Aug, [facility] [address] [id number] [address] [place] [address], [place] [address] Aug, [facility] [address] [id number] [address] [place] [address], [place] [address] Jun, [facility] [address] [id number] [address] [place] [address], [place] [address] Jun, [facility] [address] [id number] [address] [place] [address], [place] [address] Jun, [facility] [address] [id number] [address] [place] [address], [place] [address] Jun, [facility] [address] [id number] [address] [place] [address], [place] [address] Jun, [facility] [address] [facility] [id number] [address] [place] [id number] Jun, [facility] [address] [facility] [id number] [address] [place] [id number] Jun, [facility] [address] [facility] [id number] [address] [place] [id number] Mar, [facility] [address] [facility] [id number] [address] [place] [id number] Mar, IMMUNIZATIONS No Known Immunizations SOCIAL HISTORY Never Assessed REASON FOR VISIT PLAN OF CARE VITAL SIGNS Blood pressure systolic 128 mmHg 2014-03-17 Blood pressure diastolic 88 mmHg 2014-03-17 MEDICATIONS Unknown Medications RESULTS No Results PROCEDURES Procedure Date Ordered Result Body Site BLOOD PRESSURE, MEASURED Mar 17, 2014 INSTRUCTIONS MEDICATIONS ADMINISTERED No Known [...]
--- OUTSIDE RECORDS SUMMARY | 2019-08-12 20:17 | XMS REPORT ---
Author Author Bridgett TORRES [facility] Address [address] [place] [address] Care Team Providers Care Restaurant Server Name Role Phone ESTEFANIA TORRES Unavailable PROBLEMS Type Condition ICD9-CM Code BVA05-KP Code Onset Dates Condition S tatus SNOMED Code Problem Migraine headache G43.909 Active 37 850068 Problem Mixed hyperlipidemia E78.2 Active [id number] ALLERGIES No Information ENCOUNTERS Encounter Location Date Diagnosis [facility] [address] [id number] [address] [place] [address] Dec, [facility] [address] [address] Dec, [facility] [address] [id number] [address] [place] [address] Nov, Exercise counseling Z71.82 [facility] [address] [id number] [address] [place] [address] Nov, Impetigo L01.00 and Morbid o besity E66.01 [facility] [id number] [place] [address] Nov, Exercise counseling Z71.82 [facility] [address] [id number] [address] [place] [address] October, Exercise counseling Z71.82 [facility] [address] [id number] [address] [place] [address] October, Exercise counseling Z71.82 [facility] [address] [id number] [address] [place] [address] Sep, Mixed hyperlipidemia E78.2 ; Weight loss counseling, encounter for Z71.3 ; 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 and Morbid obesity E66.01 [facility] [address] [address] Sep, Exercise counseling Z71.82 [facility] [id number] [place] [address] Sep, Exercise counseling Z71.82 [facility] [address] [address] Sep, Exercise counseling Z71.82 [place] [facility] [address] [address] Sep, Exercise counseling Z71.82 [facility] [facility] [address] [address] Aug, Screening for diabetes melli tus Z13.1 [place] [address] [address] Aug, Screening for diabetes melli tus Z13.1 [place] [facility] [address] [address] Aug, Exercise counseling Z71.82 [place] [address] [address] Aug, Encounter for initial prescr iption of contraceptive pills Z30.011 ; Contraception management Z30.9 ; Contraceptive education Z30.09 ; Mixed hyperlipidemia E78.2 ; Weight loss counseling, encounter for Z71.3 ; Screening for diabetes mellitus Z13.1 ; Screening for thyroid disorder Z13.29 ; History of anemia Z86.2 and Morbid obesity E66.01 [facility] [address] [address] October, Seasonal allergic rhinitis, unspecified trigger J30.2 and BMI 40.0-44.9, adult Z68.41 [facility] [address] [address] Sep, Pelvic pain R10.2 ; Chronic GERD K21.9 and BMI 40.0-44.9, adult Z68.41 [facility] [address] [facility] [id number] [address] [place] [address] Jul, [facility] [address] [facility] [id number] [address] [place] [address] Apr, Sore throat J02.9 ; Acute re current streptococcal tonsillitis J03.01 and BMI 40.0-44.9, adult Z68.41 [facility] [address] [facility] [id number] [address] [place] [address] 09 Mar, 2017 Sore throat J02.9 and Acute non-recurrent streptococcal tonsillitis J03.00 [place] [address] [facility] [id number] [address] [place] [address] Feb, [facility] [address] [id number] [id number] Jan, Anxiety and depression F41.[address] [facility] [id number] [place] [id number] Dec, [place] [id number] [place] [address] Nov, [place] [address] [id number] [address] [place] [address] Jun, Normal in multigra sonny Z34.80 and First trimester Z33.1 [facility] [facility] [id number] [place] [address] Jun, Slow transit constipation K5 9.01 and Ota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 ear H92.01 [place] [address] [id number] [address] [place] [address] May, [facility] [address] [id number] [address] [place] [address] May, Late menses N91.0 and Acute suppurative otitis media of left ear without spontaneous rupture of tympanic membrane, recurrence not specified H66.002 [facility] [address] [facility] [id number] [address] [place] [address] May, [facility] [address] [facility] [id number] [address] [place] [address] Apr, [facility] [address] [facility] [id number] [address] [place] [address] Apr, Vaginal discharge N89.8 and Vaginal yeast infection B37.3 [facility] [address] [facility] [id number] [address] [place] [address] Mar, [facility] [address] [facility] [id number] [address] [place] [address] Feb, [facility] [address] [facility] [id number] [address] [place] [address] Feb, [place] [address] [address] 15 Feb, 2016 Abnormal cholesterol test E7 8.9 [facility] [address] [facility] [id number] [address] [place] [address] 14 Feb, 2016 History of UTI Z87.440 ; Mix ed hyperlipidemia E78.2 and Abnormal thyroid blood test R94.6 [facility] [address] [place] [address] Jan, 16 [place] [address] [place] [address] Jan, [facility] [address] [id number] [address] [place] [address] Jan, Chest pain, unspecified type R07.9 ; Palpitations R00.2 ; Hyperlipidemia, unspecified hyperlipidemia type E78.5 and Dyspnea, unspecified type R06.00 [facility] [address] [facility] [id number] [address] [place] [address] Jan, [facility] [address] [facility] [id number] [address] [place] [address] Dec, [facility] [id number] [place] [address] Dec, Upper respiratory tract infe ction, unspecified type J06.9 [place] [address] [address] Dec, Major depressive disorder, s kelly episode, unspecified F32.9 and Panic attacks F41.0 [place] [address] [address] Nov, History of anemia Z86.2 ; Ab normal thyroid blood test R94.6 ; Mixed hyperlipidemia E78.2 ; Migraine headache G43.909 and Acute maxillary sinusitis, recurrence not specified J01.00 [place] [address] [address] Nov, 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 898 ; Pain in left knee M25.562 and Pain in right knee M25.561 [place] [address] [address] Sep, Pelvic pain in female 625.9 [place] [address] [address] Sep, Pelvic pain R10.2 ; Galactor shahriar in female N64.3 ; Knee pain, left M25.562 and Knee pain, right M25.561 [facility] [id number] [place] [address] Aug, Cough R05 and Laceration of thumb, left S61.012A [facility] [id number] [place] [address] 09 Aug, 2015 Cough R05 ; History of UTI Z 87.440 and Contraception management Z30.9 [facility] [address] [address] 02 Aug, 2015 History of UTI Z87.440 and I rregular menses N92.6 [place] [address] [address] 18 Jul, 2015 Leukopenia D72.819 and Neutr openia D70.9 [place] [address] [address] 18 Jul, 2015 Leukopenia D72.819 and Neutr openia D70.9 [place] [address] [address] 17 Jul, 2015 Migraine headache G43.909 ; Heart burn R12 and History of long-term use of multiple prescription drugs Z92.29 [facility] [address] [address] 15 Jul, 2015 Vaginal discharge N89.8 ; Hi gh risk sexual behavior Z72.51 ; Unprotected sex Z72.51 ; Acute upper respiratory infection, unspecified J06.9 and Other viral agents as the cause of diseases classified elsewhere B97.89 [place] [address] [address] 04 Jul, 2015 Sore throat J02.9 ; Sinusiti s J32.9 and Fever R50.9 [place] [address] [address] Jun, Migraine headache G43.909 an d Heart burn R12 [place] [address] [address] Jun, [place] [address] [address] Jun, [address] [address] 06 Jun, 2015 Evaluation regarding contrac eption options Z30.09 ; Encounter for Depo-Provera contraception Z30.42 ; 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 269A [facility] [address] [address] May, Sore throat J02.[address] [address] 24 Feb, 2015 Pelvic pain in female 625.9 and Menorrhagia 626.[address] [address] 16 Dec, [address] [address] Dec, Pelvic pain in female 625.9 and Ganglion cyst of wrist 727.[address] [address] 16 Nov, 2014 Eczema [address] [address] 12 Nov, [address] [address] 14 Sep, [address] [address] Sep, [facility] [address] [id number] [address] [place] [address], [place] [address] Jul, [facility] [address] [id number] [address] [place] [address], [place] [address] Jul, [facility] [address] [id number] [address] [place] [address], [place] [address] Jun, [facility] [address] [id number] [address] [place] [address], [place] [address] Jun, [facility] [address] [id number] [address] [place] [address], [place] [address] Jun, [facility] [address] [id number] [address] [place] [address], [place] [address] Jun, [facility] [address] [id number] [address] [place] [address], [place] [address] Jun, [facility] [address] [id number] [address] [place] [address], [place] [address] Jun, [facility] [address] [id number] [address] [place] [address], [place] [address] Jun, [facility] [address] [id number] [address] [place] [address], [place] [address] Jun, [facility] [address] [id number] [address] [place] [address], [place] [address] May, [facility] [address] [id number] [address] [place] [address] May, [facility] [address] [id number] [address] [place] [address], [place] [address] May, [facility] [address] [id number] [address] [place] [address], [place] [address] May, [facility] [address] [id number] [address] [place] [address], [place] [address] Apr, [facility] [address] [id number] [address] [place] [address], [place] [address] Apr, [facility] [address] [id number] [address] [place] [address], [place] [address] Apr, [facility] [address] [id number] [address] [place] [address], [place] [address] Apr, [facility] [address] [id number] [address] [place] [address], [place] [address] Apr, [facility] [address] [id number] [address] [place] [address], [place] [address] Apr, [facility] [address] [id number] [address] [place] [address], [place] [address] 29 Feb, 2014 [facility] [address] [id number] [address] [place] [address], [place] [address] 29 Feb, 2013 [facility] [address] [id number] [address] [place] [address], [place] [address] Feb, 2013 [facility] [address] [id number] [address] [place] [address], [place] [address] Feb, 2013 [facility] [address] [id number] [address] [place] [address], [place] [address] Feb, 2013 [facility] [address] [id number] [address] [place] [address], [place] [address] 26 Feb, 2013 [facility] [address] [id number] [address] [place] [address], [place] [address] 25 Feb, 2013 [facility] [address] [id number] [address] [place] [address], [place] [address] 25 Feb, 2013 [facility] [address] [id number] [address] [place] [address], [place] [address] 23 Feb, 2013 [facility] [address] [id number] [address] [place] [address], [place] [address] 23 Feb, 2013 [facility] [address] [id number] [address] [place] [address], [place] [address] Feb, 2013 [facility] [address] [id number] [facility] [address] 22 Feb, 2013 [facility] [address] [id number] [address] [place] [address], [place] [address] Feb, 2013 [facility] [address] [id number] [address] [place] [address], [place] [address] Feb, 2013 [facility] [address] [id number] [address] [place] [address], [place] [address] 12 Feb, 2013 [facility] [address] [id number] [address] [place] [address], [place] [address] 10 Feb, 2013 [facility] [address] [id number] [address] [place] [address], [place] [address] Feb, 2013 [facility] [address] [id number] [address] [place] [address], [place] [address] Feb, 2013 [facility] [address] [id number] [address] [place] [address], [place] [address] Feb, 2013 [facility] [address] [id number] [address] [place] [address], [place] [address] Feb, [facility] [address] [id number] [address] [place] [address], [place] [address] Jan, [facility] [address] [id number] [address] [place] [address], [place] [address] Jan, [facility] [address] [id number] [address] [place] [address], [place] [address] Jan, [facility] [address] [id number] [address] [place] [address], [place] [address] Jan, [facility] [address] [id number] [address] [place] [address], [place] [address] Jan, [facility] [address] [id number] [address] [place] [address], [place] [address] Jan, [facility] [address] [id number] [address] [place] [address], [place] [address] Jan, [facility] [address] [id number] [address] [place] [address], [place] [address] Jan, [facility] [address] [id number] [address] [place] [address], [place] [address] Dec, [facility] [address] [id number] [address] [place] [address], [place] [address] Dec, [facility] [address] [id number] [address] [place] [address], [place] [address] Dec, [facility] [address] [id number] [address] [place] [address], [place] [address] Dec, [facility] [address] [id number] [address] [place] [address], [place] [address] Dec, [facility] [address] [id number] [address] [place] [address], [place] [address] Dec, [facility] [address] [id number] [address] [place] [address], [place] [address] Dec, [facility] [address] [id number] [address] [place] [address], [place] [address] Dec, [facility] [address] [id number] [address] [place] [address], [place] [address] Dec, [facility] [address] [id number] [address] [place] [address], [place] [address] Dec, [facility] [address] [id number] [address] [place] [address], [place] [address] Dec, [facility] [address] [id number] [address] [place] [address], [place] [address] Dec, [facility] [address] [id number] [address] [place] [address], [place] [address] Nov, [facility] [address] [id number] [address] [place] [address], [place] [address] Nov, [facility] [address] [id number] [facility] [address] Nov, [facility] [address] [id number] [address] [place] [address], [place] [address] Nov, [facility] [address] [id number] [address] [place] [address], [place] [address] Nov, [facility] [address] [id number] [address] [place] [address], [place] [address] Nov, [facility] [address] [id number] [address] [place] [address], [place] [address] Nov, [facility] [address] [id number] [address] [place] [address], [place] [address] Nov, [facility] [address] [id number] [address] [place] [address], [place] [address] Nov, [facility] [address] [id number] [address] [place] [address], [place] [address] Nov, [facility] [address] [id number] [address] [place] [address], [place] [address] October, [facility] [address] [id number] [address] [place] [address], [place] [address] October, [facility] [address] [id number] [address] [place] [address], [place] [address] October, [facility] [address] [id number] [address] [place] [address], [place] [address] October, [facility] [address] [id number] [address] [place] [address], [place] [address] October, [facility] [address] [id number] [address] [place] [address], [place] [address] October, [facility] [address] [id number] [address] [place] [address], [place] [address] Sep, [facility] [address] [id number] [address] [place] [address], [place] [address] Sep, [facility] [address] [id number] [address] [place] [address], [place] [address] Sep, [facility] [address] [id number] [address] [place] [address], [place] [address] Sep, [facility] [address] [id number] [address] [place] [address], [place] [address] Sep, [facility] [address] [id number] [address] [place] [address], [place] [address] Sep, [facility] [address] [id number] [address] [place] [address], [place] [address] Aug, [facility] [address] [id number] [address] [place] [address], [place] [address] Aug, [facility] [address] [id number] [address] [place] [address], [place] [address] Aug, [facility] [address] [id number] [address] [place] [address], [place] [address] Aug, [facility] [address] [id number] [address] [place] [address], [place] [address] Aug, [facility] [address] [id number] [address] [place] [address], [place] [address] Jun, [facility] [address] [id number] [address] [place] [address], [place] [address] Jun, [facility] [address] [id number] [address] [place] [address], [place] [address] Jun, [facility] [address] [id number] [address] [place] [address], [place] [address] Jun, [facility] [address] [id number] [address] [place] [address], [place] [address] Jun, [facility] [address] [id number] [address] [place] [address], [place] [address] Jun, [facility] [address] [id number] [address] [place] [id number] Jun, [facility] [address] [facility] [id number] [address] [place] [id number] Mar, [facility] [address] [facility] [id number] [address] [place] [id number] Mar, IMMUNIZATIONS No Known Immunizations SOCIAL HISTORY Never Assessed REASON FOR VISIT PLAN OF CARE VITAL SIGNS Height 65 in 2014-02-22 Weight 259 lbs 2014-02-22 Temperature 97.3 degrees Fahrenheit 2014-02-22 Heart Rate 108 bpm 2014-02-22 Respiratory Rate 20 2014-02-22 Blood pressure systolic 130 mmHg 2014-02-22 Blood pressure diastolic 72 mmHg 2014-02-22 MEDICATIONS Unknown Medications RESULTS No Results PROCEDURES Procedure Date Ordered Result Body Site GLUCOSE BLOOD TEST Feb 22, 2014 OB US, FOLLOW-UP, PER FETUS Feb 22, 2014 VARICELLA-ZOSTER ANTIBODY Feb 22, 2014 VENIPUNCT, ROUTINE* Feb 22, 2014 URINE-NO MICRO Feb 22, 2014 INSTRUCTIONS MEDICATIONS ADMINISTERED No Known Medications [...]
--- OUTSIDE RECORDS SUMMARY | 2019-08-12 20:17 | XMS REPORT ---
Author Author Bridgett HWANG [facility] Address [address] [place] [address] Care Team Providers Care Maintenance Clerk Name Role Phone ERISTACEYANOOP Unavailable PROBLEMS Type Condition ICD9-CM Code PAE75-MI Code Onset Dates Condition S tatus SNOMED Code Problem Migraine headache G43.909 Active 37 511277 Problem Mixed hyperlipidemia E78.2 Active [id number] ALLERGIES No Information ENCOUNTERS Encounter Location Date Diagnosis [facility] [address] [id number] [address] [place] [address] Dec, [facility] [address] [address] Dec, [facility] [address] [id number] [address] [place] [address] Nov, Exercise counseling Z71.82 [facility] [address] [id number] [address] [place] [address] Nov, Impetigo L01.00 and Morbid o besity E66.01 [facility] [address] [id number] [place] [address] Nov, Exercise counseling Z71.82 [facility] [address] [id number] [address] [place] [address] October, Exercise counseling Z71.82 [place] [address] [id number] [address] [place] [address] October, Exercise counseling Z71.82 [facility] [address] [id number] [address] [place] [address] Sep, Mixed hyperlipidemia E78.2 ; Weight loss counseling, encounter for Z71.3 ; 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 and Morbid obesity E66.01 [facility] [address] [address] Sep, Exercise counseling Z71.82 [facility] [id number] [place] [address] Sep, Exercise counseling Z71.82 [place] [address] [address] Sep, Exercise counseling Z71.82 [place] [address] [address] Sep, Exercise counseling Z71.82 [place] [address] [address] Aug, Screening for diabetes melli tus Z13.1 [place] [address] [address] Aug, Screening for diabetes melli tus Z13.1 [place] [id number] [address] Aug, Exercise counseling Z71.82 [place] [address] [address] Aug, Encounter for initial prescr iption of contraceptive pills Z30.011 ; Contraception management Z30.9 ; Contraceptive education Z30.09 ; Mixed hyperlipidemia E78.2 ; Weight loss counseling, encounter for Z71.3 ; Screening for diabetes mellitus Z13.1 ; Screening for thyroid disorder Z13.29 ; History of anemia Z86.2 and Morbid obesity E66.01 [facility] [address] [address] October, Seasonal allergic rhinitis, unspecified trigger J30.2 and BMI 40.0-44.9, adult Z68.41 [facility] [address] [address] Sep, Pelvic pain R10.2 ; Chronic GERD K21.9 and BMI 40.0-44.9, adult Z68.41 [facility] [address] [facility] [id number] [address] [place] [address] 20 Jul, 2017 [facility] [address] [facility] [id number] [address] [place] [address] Apr, Sore throat J02.9 ; Acute re current streptococcal tonsillitis J03.01 and BMI 40.0-44.9, adult Z68.41 [facility] [address] [facility] [id number] [address] [place] [address] 09 Mar, 2017 Sore throat J02.9 and Acute non-recurrent streptococcal tonsillitis J03.00 [place] [address] [facility] [id number] [address] [place] [address] 05 Feb, [address] [facility] [id number] [place] [id number] Jan, Anxiety and depression F41.8 [facility] [id number] [place] [address] [id number] Dec, [place] [address] [id number] [place] [address] Nov, [place] [address] [place] [id number] [address] [place] [address] Jun, Normal in multigra sonny Z34.80 and First trimester Z33.1 [place] [address] [place] [address] Jun, Slow transit constipation K5 9.01 and Ota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 ear H92.01 [place] [address] [place] [id number] [address] [place] [address] May, [facility] [address] [id number] [address] [place] [address] May, Late menses N91.0 and Acute suppurative otitis media of left ear without spontaneous rupture of tympanic membrane, recurrence not specified H66.002 [facility] [address] [facility] [id number] [address] [place] [address] May, [facility] [address] [facility] [id number] [address] [place] [address] Apr, [facility] [address] [facility] [id number] [address] [place] [address] Apr, Vaginal discharge N89.8 and Vaginal yeast infection B37.3 [facility] [address] [facility] [id number] [address] [place] [address] Mar, [facility] [address] [facility] [id number] [address] [place] [address] Feb, [facility] [address] [facility] [id number] [address] [place] [address] Feb, [place] [address] [address] 15 Feb, 2016 Abnormal cholesterol test E7 8.9 [facility] [address] [id number] [address] [place] [address] 14 Feb, 2016 History of UTI Z87.440 ; Mix ed hyperlipidemia E78.2 and Abnormal thyroid blood test R94.6 [facility] [address] [place] [address] Jan, [place] [address] [facility] [id number] [address] [place] [address] Jan, [facility] [address] [id number] [address] [place] [address] Jan, Chest pain, unspecified type R07.9 ; Palpitations R00.2 ; Hyperlipidemia, unspecified hyperlipidemia type E78.5 and Dyspnea, unspecified type R06.00 [facility] [address] [facility] [id number] [address] [place] [address] Jan, [facility] [address] [facility] [id number] [address] [place] [address] Dec, [facility] [place] [address] [address] Dec, Upper respiratory tract infe ction, unspecified type J06.9 [place] [address] [address] Dec, Major depressive disorder, s kelly episode, unspecified F32.9 and Panic attacks F41.0 [place] [address] [address] Nov, History of anemia Z86.2 ; Ab normal thyroid blood test R94.6 ; Mixed hyperlipidemia E78.2 ; Migraine headache G43.909 and Acute maxillary sinusitis, recurrence not specified J01.00 [place] [address] [address] Nov, 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 898 ; Pain in left knee M25.562 and Pain in right knee M25.561 [place] [address] [address] Sep, Pelvic pain in female 625.9 [place] [address] [address] Sep, Pelvic pain R10.2 ; Galactor shahriar in female N64.3 ; Knee pain, left M25.562 and Knee pain, right M25.561 [facility] [place] [address] [address] Aug, Cough R05 and Laceration of thumb, left S61.012A [facility] [id number] [place] [address] 09 Aug, 2015 Cough R05 ; History of UTI Z 87.440 and Contraception management Z30.9 [facility] [address] [place] [address] 02 Aug, 2015 History of UTI Z87.440 and I rregular menses N92.6 [place] [address] [address] 18 Jul, 2015 Leukopenia D72.819 and Neutr openia D70.9 [place] [address] [address] 18 Jul, 2015 Leukopenia D72.819 and Neutr openia D70.9 [place] [address] [address] 17 Jul, 2015 Migraine headache G43.909 ; Heart burn R12 and History of long-term use of multiple prescription drugs Z92.29 [facility] [id number] [place] [address] 15 Jul, 2015 Vaginal discharge N89.8 ; Hi gh risk sexual behavior Z72.51 ; Unprotected sex Z72.51 ; Acute upper respiratory infection, unspecified J06.9 and Other viral agents as the cause of diseases classified elsewhere B97.89 [place] [address] [place] [place] [id number] [place] [address] 04 Jul, 2015 Sore throat J02.9 ; Sinusiti s J32.9 and Fever R50.9 [place] [address] [address] Jun, Migraine headache G43.909 an d Heart burn R12 [place] [address] [address] Jun, [facility] [address] [address] Jun, [address] [address] 06 Jun, 2015 Evaluation regarding contrac eption options Z30.09 ; Encounter for Depo-Provera contraception Z30.42 ; 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 269A [facility] [address] [address] May, Sore throat J02.[address] [address] 24 Feb, 2015 Pelvic pain in female 625.9 and Menorrhagia 626.[address] [address] Dec, Diarrhea 787.[address] [address] Dec, Pelvic pain in female 625.9 and Ganglion cyst of wrist 727.41 [place] [id number] [place] [address] 16 Nov, 2014 Eczema 692.[address] [address] 12 Nov, [address] [address] 14 Sep, [address] [address] Sep, [facility] [address] [id number] [address] [place] [address], [place] [address] Jul, [facility] [address] [id number] [address] [place] [address], [place] [address] Jul, [facility] [address] [id number] [address] [place] [address], [place] [address] Jun, [facility] [address] [id number] [address] [place] [address], [place] [address] Jun, [facility] [address] [id number] [address] [place] [address], [place] [address] Jun, [facility] [address] [id number] [address] [place] [address], [place] [address] Jun, [facility] [address] [id number] [address] [place] [address], [place] [address] Jun, [facility] [address] [id number] [address] [place] [address], [place] [address] Jun, [facility] [address] [id number] [address] [place] [address], [place] [address] Jun, [facility] [address] [id number] [address] [place] [address], [place] [address] Jun, [facility] [address] [id number] [address] [place] [address], [place] [address] May, [facility] [address] [id number] [address] [place] [address], [place] [address] May, [facility] [address] [id number] [address] [place] [address], [place] [address] May, [facility] [address] [id number] [address] [place] [address], [place] [address] May, [facility] [address] [id number] [address] [place] [address], [place] [address] Apr, [facility] [address] [id number] [address] [place] [address], [place] [address] Apr, [facility] [address] [id number] [address] [place] [address], [place] [address] Apr, [facility] [address] [id number] [address] [place] [address], [place] [address] Apr, [facility] [address] [id number] [address] [place] [address], [place] [address] Apr, [facility] [address] [id number] [address] [place] [address], [place] [address] Apr, [facility] [address] [id number] [address] [place] [address], [place] [address] 29 Feb, 2014 [facility] [address] [id number] [address] [place] [address], [place] [address] 29 Feb, 2014 [facility] [address] [id number] [address] [place] [address], [place] [address] Feb, 2013 [facility] [address] [id number] [address] [place] [address], [place] [address] 26 Feb, 2013 [facility] [address] [id number] [address] [place] [address], [place] [address] Feb, 2013 [facility] [address] [id number] [address] [place] [address], [place] [address] 26 Feb, 2013 [facility] [address] [id number] [address] [place] [address], [place] [address] 25 Feb, 2013 [facility] [address] [id number] [address] [place] [address], [place] [address] 25 Feb, 2013 [facility] [address] [id number] [address] [place] [address], [place] [address] 23 Feb, 2013 [facility] [address] [id number] [address] [place] [address], [place] [address] 23 Feb, 2013 [facility] [address] [id number] [address] [place] [address], [place] [address] 22 Feb, 2013 [facility] [address] [id number] [address] [place] [address], [place] [address] 22 Feb, 2013 [facility] [address] [id number] [address] [place] [address], [place] [address] 19 Feb, 2013 [facility] [address] [id number] [address] [place] [address], [place] [address] 19 Feb, 2013 [facility] [address] [id number] [address] [place] [address], [place] [address] 12 Feb, 2013 [facility] [address] [id number] [address] [place] [address], [place] [address] 10 Feb, 2013 [facility] [address] [id number] [address] [place] [address], [place] [address] 10 Feb, 2013 [facility] [address] [id number] [address] [place] [address], [place] [address] 04 Feb, 2013 [facility] [address] [id number] [address] [place] [address], [place] [address] Feb, 2013 [facility] [address] [id number] [address] [place] [address], [place] [address] Feb, 2013 [facility] [address] [id number] [address] [place] [address], [place] [address] Jan, [facility] [address] [id number] [address] [place] [address], [place] [address] Jan, [facility] [address] [id number] [address] [place] [address], [place] [address] Jan, [facility] [address] [id number] [address] [place] [address], [place] [address] Jan, [facility] [address] [id number] [address] [place] [address], [place] [address] Jan, [facility] [address] [id number] [address] [place] [address], [place] [address] Jan, [facility] [address] [id number] [address] [place] [address], [place] [address] Jan, [facility] [address] [id number] [address] [place] [address], [place] [address] Jan, [facility] [address] [id number] [address] [place] [address], [place] [address] Dec, [facility] [address] [id number] [address] [place] [address], [place] [address] Dec, [facility] [address] [id number] [address] [place] [address], [place] [address] Dec, [facility] [address] [id number] [address] [place] [address], [place] [address] Dec, [facility] [address] [id number] [address] [place] [address], [place] [address] Dec, [facility] [address] [id number] [address] [place] [address], [place] [address] Dec, [facility] [address] [id number] [address] [place] [address], [place] [address] Dec, [facility] [address] [id number] [address] [place] [address], [place] [address] Dec, [facility] [address] [id number] [address] [place] [address], [place] [address] Dec, [facility] [address] [id number] [address] [place] [address], [place] [address] Dec, [facility] [address] [id number] [address] [place] [address], [place] [address] Dec, [facility] [address] [id number] [address] [place] [address], [place] [address] Dec, [facility] [address] [id number] [address] [place] [address], [place] [address] Nov, [facility] [address] [id number] [address] [place] [address], [place] [address] Nov, [facility] [address] [id number] [address] [place] [address], [place] [address] Nov, [facility] [address] [id number] [address] [place] [address], [place] [address] Nov, [facility] [address] [id number] [address] [place] [address], [place] [address] Nov, [facility] [address] [id number] [address] [place] [address], [place] [address] Nov, [facility] [address] [id number] [address] [place] [address], [place] [address] Nov, [facility] [address] [id number] [address] [place] [address], [place] [address] Nov, [facility] [address] [id number] [address] [place] [address], [place] [address] Nov, [facility] [address] [id number] [address] [place] [address], [place] [address] Nov, [facility] [address] [id number] [address] [place] [address], [place] [address] October, [facility] [address] [id number] [address] [place] [address], [place] [address] October, [facility] [address] [id number] [address] [place] [address], [place] [address] October, [facility] [address] [id number] [address] [place] [address], [place] [address] October, [facility] [address] [id number] [address] [place] [address], [place] [address] October, [facility] [address] [id number] [address] [place] [address], [place] [address] October, [facility] [address] [id number] [address] [place] [address], [place] [address] Sep, [facility] [address] [id number] [address] [place] [address], [place] [address] Sep, [facility] [address] [id number] [facility] [address] Sep, [facility] [address] [id number] [address] [place] [address], [place] [address] Sep, [facility] [address] [id number] [address] [place] [address], [place] [address] Sep, [facility] [address] [id number] [address] [place] [address], [place] [address] Sep, [facility] [address] [id number] [address] [place] [address], [place] [address] Aug, [facility] [address] [id number] [address] [place] [address], [place] [address] Aug, [facility] [address] [id number] [address] [place] [address], [place] [address] Aug, [facility] [address] [id number] [address] [place] [address], [place] [address] Aug, [facility] [address] [id number] [address] [place] [address], [place] [address] Aug, [facility] [address] [id number] [address] [place] [address], [place] [address] Jun, [facility] [address] [id number] [address] [place] [address], [place] [address] Jun, [facility] [address] [id number] [address] [place] [address], [place] [address] Jun, [facility] [address] [id number] [address] [place] [address], [place] [address] Jun, [facility] [address] [id number] [address] [place] [address], [place] [address] Jun, [facility] [address] [id number] [address] [place] [address], [place] [address] Jun, [facility] [address] [id number] [address] [place] [id number] Jun, [facility] [address] [facility] [id number] [address] [place] [id number] Mar, [facility] [address] [facility] [id number] [address] [place] [id number] Mar, IMMUNIZATIONS No Known Immunizations SOCIAL HISTORY [...]
--- OUTSIDE RECORDS SUMMARY | 2019-08-12 20:17 | XMS REPORT ---
Author Author Bridgett TORRES [facility] Address [address] [place] [address] Care Team Providers Care Home Extension Agent Name Role Phone ESTEFANIA TORRES Unavailable PROBLEMS Type Condition ICD9-CM Code FUZ22-AX Code Onset Dates Condition S tatus SNOMED Code Problem Migraine headache G43.909 Active 37 052168 Problem Mixed hyperlipidemia E78.2 Active [id number] ALLERGIES No Information ENCOUNTERS Encounter Location Date Diagnosis [facility] [address] [id number] [address] [place] [address] Dec, [facility] [address] [address] Dec, [facility] [address] [id number] [address] [place] [address] Nov, Exercise counseling Z71.82 [facility] [address] [id number] [address] [place] [address] Nov, Impetigo L01.00 and Morbid o besity E66.01 [facility] [id number] [place] [address] Nov, Exercise counseling Z71.82 [facility] [address] [id number] [address] [place] [address] October, Exercise counseling Z71.82 [facility] [address] [id number] [address] [place] [address] October, Exercise counseling Z71.82 [facility] [address] [id number] [address] [place] [address] Sep, Mixed hyperlipidemia E78.2 ; Weight loss counseling, encounter for Z71.3 ; 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 and Morbid obesity E66.01 [facility] [address] [address] Sep, Exercise counseling Z71.82 [facility] [id number] [place] [address] Sep, Exercise counseling Z71.82 [place] [address] [address] Sep, Exercise counseling Z71.82 [place] [address] [address] Sep, Exercise counseling Z71.82 [place] [address] [address] Aug, Screening for diabetes melli tus Z13.1 [place] [address] [address] Aug, Screening for diabetes melli tus Z13.1 [place] [address] [address] Aug, Exercise counseling Z71.82 [place] [address] [address] Aug, Encounter for initial prescr iption of contraceptive pills Z30.011 ; Contraception management Z30.9 ; Contraceptive education Z30.09 ; Mixed hyperlipidemia E78.2 ; Weight loss counseling, encounter for Z71.3 ; Screening for diabetes mellitus Z13.1 ; Screening for thyroid disorder Z13.29 ; History of anemia Z86.2 and Morbid obesity E66.01 [facility] [address] [address] October, Seasonal allergic rhinitis, unspecified trigger J30.2 and BMI 40.0-44.9, adult Z68.41 [facility] [address] [address] Sep, Pelvic pain R10.2 ; Chronic GERD K21.9 and BMI 40.0-44.9, adult Z68.41 [facility] [address] [facility] [id number] [address] [place] [address] Jul, [facility] [address] [facility] [id number] [address] [place] [address] Apr, Sore throat J02.9 ; Acute re current streptococcal tonsillitis J03.01 and BMI 40.0-44.9, adult Z68.41 [facility] IN [facility] [address] [facility] [id number] [address] [place] [address] 09 Mar, 2017 Sore throat J02.9 and Acute non-recurrent streptococcal tonsillitis J03.00 [place] [address] [facility] [id number] [address] [place] [address] Feb, [facility] [address] [id number] [id number] Jan, Anxiety and depression F41.8 [facility] [id number] [place] [id number] Dec, [place] [id number] [place] [address] Nov, [place] [address] [id number] [address] [place] [address] Jun, Normal in multigra sonny Z34.80 and First trimester Z33.1 [place] [id number] [place] [address] Jun, Slow transit constipation K5 9.01 and Ota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 ear H92.01 [place] [address] [id number] [address] [place] [address] May, [facility] [address] [id number] [address] [place] [address] May, Late menses N91.0 and Acute suppurative otitis media of left ear without spontaneous rupture of tympanic membrane, recurrence not specified H66.002 [facility] [address] [facility] [id number] [address] [place] [address] May, [facility] [address] [facility] [id number] [address] [place] [address] Apr, [facility] [address] [facility] [id number] [address] [place] [address] Apr, Vaginal discharge N89.8 and Vaginal yeast infection B37.3 [facility] [address] [facility] [id number] [address] [place] [address] Mar, [facility] [address] [facility] [id number] [address] [place] [address] Feb, [facility] [address] [facility] [id number] [address] [place] [address] Feb, [place] [address] [address] 15 Feb, 2016 Abnormal cholesterol test E7 8.9 [facility] [address] [facility] [id number] [address] [place] [address] 14 Feb, 2016 History of UTI Z87.440 ; Mix ed hyperlipidemia E78.2 and Abnormal thyroid blood test R94.6 [facility] [address] [place] [address] Jan, 16 [place] [id number] [place] [address] Jan, [facility] [address] [id number] [address] [place] [address] Jan, Chest pain, unspecified type R07.9 ; Palpitations R00.2 ; Hyperlipidemia, unspecified hyperlipidemia type E78.5 and Dyspnea, unspecified type R06.00 [facility] [address] [facility] [id number] [address] [place] [address] Jan, [facility] [address] [facility] [id number] [address] [place] [address] Dec, [facility] [id number] [place] [address] Dec, Upper respiratory tract infe ction, unspecified type J06.9 [place] [address] [address] Dec, Major depressive disorder, s kelly episode, unspecified F32.9 and Panic attacks F41.0 [place] [address] [address] Nov, History of anemia Z86.2 ; Ab normal thyroid blood test R94.6 ; Mixed hyperlipidemia E78.2 ; Migraine headache G43.909 and Acute maxillary sinusitis, recurrence not specified J01.00 [place] [address] [address] Nov, 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 898 ; Pain in left knee M25.562 and Pain in right knee M25.561 [place] [address] [address] Sep, Pelvic pain in female 625.9 [place] [address] [address] Sep, Pelvic pain R10.2 ; Galactor shahriar in female N64.3 ; Knee pain, left M25.562 and Knee pain, right M25.561 [facility] [id number] [place] [address] Aug, Cough R05 and Laceration of thumb, left S61.012A [facility] [id number] [place] [address] 09 Aug, 2015 Cough R05 ; History of UTI Z 87.440 and Contraception management Z30.9 [facility] [address] [address] 02 Aug, 2015 History of UTI Z87.440 and I rregular menses N92.6 [place] [address] [address] 18 Jul, 2015 Leukopenia D72.819 and Neutr openia D70.9 [place] [address] [address] 18 Jul, 2015 Leukopenia D72.819 and Neutr openia D70.9 [place] [address] [address] 17 Jul, 2015 Migraine headache G43.909 ; Heart burn R12 and History of long-term use of multiple prescription drugs Z92.29 [facility] [address] [address] 15 Jul, 2015 Vaginal discharge N89.8 ; Hi gh risk sexual behavior Z72.51 ; Unprotected sex Z72.51 ; Acute upper respiratory infection, unspecified J06.9 and Other viral agents as the cause of diseases classified elsewhere B97.89 [place] [address] [address] 04 Jul, 2015 Sore throat J02.9 ; Sinusiti s J32.9 and Fever R50.9 [place] [address] [address] Jun, Migraine headache G43.909 an d Heart burn R12 [place] [address] [address] Jun, [place] [address] [address] Jun, [address] [address] 06 Jun, 2015 Evaluation regarding contrac eption options Z30.09 ; Encounter for Depo-Provera contraception Z30.42 ; 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 269A [facility] WALK IN [address] [address] May, Sore throat J02.[address] [address] 24 Feb, 2015 Pelvic pain in female 625.9 and Menorrhagia 626.[address] [address] 16 Dec, 2014 [address] [address] Dec, Pelvic pain in female 625.9 and Ganglion cyst of wrist 727.[address] [address] 16 Nov, 2014 Eczema 692.[address] [address] 12 Nov, [address] [address] 14 Sep, [address] [address] Sep, [facility] [address] [id number] [address] [place] [address], [place] [address] Jul, [facility] [address] [id number] [address] [place] [address], [place] [address] Jul, [facility] [address] [id number] [address] [place] [address], [place] [address] Jun, [facility] [address] [id number] [address] [place] [address], [place] [address] Jun, [facility] [address] [id number] [address] [place] [address], [place] [address] Jun, [facility] [address] [id number] [address] [place] [address], [place] [address] Jun, [facility] [address] [id number] [address] [place] [address], [place] [address] Jun, [facility] [address] [id number] [address] [place] [address], [place] [address] Jun, [facility] [address] [id number] [address] [place] [address], [place] [address] Jun, [facility] [address] [id number] [address] [place] [address], [place] [address] Jun, [facility] [address] [id number] [address] [place] [address], [place] [address] May, [facility] [address] [id number] [address] [place] [address] May, [facility] [address] [id number] [address] [place] [address], [place] [address] May, [facility] [address] [id number] [address] [place] [address], [place] [address] May, [facility] [address] [id number] [address] [place] [address], [place] [address] Apr, [facility] [address] [id number] [address] [place] [address], [place] [address] Apr, [facility] [address] [id number] [address] [place] [address], [place] [address] Apr, [facility] [address] [id number] [address] [place] [address], [place] [address] Apr, [facility] [address] [id number] [address] [place] [address], [place] [address] Apr, [facility] [address] [id number] [address] [place] [address], [place] [address] Apr, [facility] [address] [id number] [address] [place] [address], [place] [address] 29 Feb, 2014 [facility] [address] [id number] [address] [place] [address], [place] [address] 29 Feb, 2013 [facility] [address] [id number] [address] [place] [address], [place] [address] Feb, 2013 [facility] [address] [id number] [address] [place] [address], [place] [address] Feb, 2013 [facility] [address] [id number] [address] [place] [address], [place] [address] Feb, 2013 [facility] [address] [id number] [address] [place] [address], [place] [address] 26 Feb, 2013 [facility] [address] [id number] [address] [place] [address], [place] [address] 25 Feb, 2013 [facility] [address] [id number] [address] [place] [address], [place] [address] 25 Feb, 2013 [facility] [address] [id number] [address] [place] [address], [place] [address] 23 Feb, 2013 [facility] [address] [id number] [address] [place] [address], [place] [address] 23 Feb, 2013 [facility] [address] [id number] [address] [place] [address], [place] [address] Feb, 2013 [facility] [address] [id number] [facility] [place] [address] 22 Feb, 2013 [facility] [address] [id number] [address] [place] [address], [place] [address] Feb, 2013 [facility] [address] [id number] [address] [place] [address], [place] [address] Feb, 2013 [facility] [address] [id number] [address] [place] [address], [place] [address] 12 Feb, 2013 [facility] [address] [id number] [address] [place] [address], [place] [address] 10 Feb, 2013 [facility] [address] [id number] [address] [place] [address], [place] [address] Feb, 2013 [facility] [address] [id number] [address] [place] [address], [place] [address] Feb, 2013 [facility] [address] [id number] [address] [place] [address], [place] [address] Feb, 2013 [facility] [address] [id number] [address] [place] [address], [place] [address] Feb, [facility] [address] [id number] [address] [place] [address], [place] [address] Jan, [facility] [address] [id number] [address] [place] [address], [place] [address] Jan, [facility] [address] [id number] [address] [place] [address], [place] [address] Jan, [facility] [address] [id number] [address] [place] [address], [place] [address] Jan, [facility] [address] [id number] [address] [place] [address], [place] [address] Jan, [facility] [address] [id number] [address] [place] [address], [place] [address] Jan, [facility] [address] [id number] [address] [place] [address], [place] [address] Jan, [facility] [address] [id number] [address] [place] [address], [place] [address] Jan, [facility] [address] [id number] [address] [place] [address], [place] [address] Dec, [facility] [address] [id number] [address] [place] [address], [place] [address] Dec, [facility] [address] [id number] [address] [place] [address], [place] [address] Dec, [facility] [address] [id number] [address] [place] [address], [place] [address] Dec, [facility] [address] [id number] [address] [place] [address], [place] [address] Dec, [facility] [address] [id number] [address] [place] [address], [place] [address] Dec, [facility] [address] [id number] [address] [place] [address], [place] [address] Dec, [facility] [address] [id number] [address] [place] [address], [place] [address] Dec, [facility] [address] [id number] [address] [place] [address], [place] [address] Dec, [facility] [address] [id number] [address] [place] [address], [place] [address] Dec, [facility] [address] [id number] [address] [place] [address], [place] [address] Dec, [facility] [address] [id number] [address] [place] [address], [place] [address] Dec, [facility] [address] [id number] [address] [place] [address], [place] [address] Nov, [facility] [address] [id number] [address] [place] [address], [place] [address] Nov, [facility] [address] [id number] [facility] [place] [address] Nov, [facility] [address] [id number] [address] [place] [address], [place] [address] Nov, [facility] [address] [id number] [address] [place] [address], [place] [address] Nov, [facility] [address] [id number] [address] [place] [address], [place] [address] Nov, [facility] [address] [id number] [address] [place] [address], [place] [address] Nov, [facility] [address] [id number] [address] [place] [address], [place] [address] Nov, [facility] [address] [id number] [address] [place] [address], [place] [address] Nov, [facility] [address] [id number] [address] [place] [address], [place] [address] Nov, [facility] [address] [id number] [address] [place] [address], [place] [address] October, [facility] [address] [id number] [address] [place] [address], [place] [address] October, [facility] [address] [id number] [address] [place] [address], [place] [address] October, [facility] [address] [id number] [address] [place] [address], [place] [address] October, [facility] [address] [id number] [address] [place] [address], [place] [address] October, [facility] [address] [id number] [address] [place] [address], [place] [address] October, [facility] [address] [id number] [address] [place] [address], [place] [address] Sep, [facility] [address] [id number] [address] [place] [address], [place] [address] Sep, [facility] [address] [id number] [address] [place] [address], [place] [address] Sep, [facility] [address] [id number] [address] [place] [address], [place] [address] Sep, [facility] [address] [id number] [address] [place] [address], [place] [address] Sep, [facility] [address] [id number] [address] [place] [address], [place] [address] Sep, [facility] [address] [id number] [address] [place] [address], [place] [address] Aug, [facility] [address] [id number] [address] [place] [address], [place] [address] Aug, [facility] [address] [id number] [address] [place] [address], [place] [address] Aug, [facility] [address] [id number] [address] [place] [address], [place] [address] Aug, [facility] [address] [id number] [address] [place] [address], [place] [address] Aug, [facility] [address] [id number] [address] [place] [address], [place] [address] Jun, [facility] [address] [id number] [address] [place] [address], [place] [address] Jun, [facility] [address] [id number] [address] [place] [address], [place] [address] Jun, [facility] [address] [id number] [address] [place] [address], [place] [address] Jun, [facility] [address] [id number] [address] [place] [address], [place] [address] Jun, [facility] [address] [id number] [address] [place] [address], [place] [address] Jun, [facility] [address] [id number] [address] [place] [address] Jun, [facility] [address] [facility] [id number] [address] [place] [address] Mar, [facility] [address] [facility] [id number] [address] [place] [phone] Mar, IMMUNIZATIONS No Known Immunizations SOCIAL HISTORY Never Assessed REASON FOR VISIT PLAN OF CARE VITAL SIGNS Height 65 in 2014-03-01 Weight 262.38 lbs 2014-03-01 Temperature 97.8 degrees Fahrenheit 2014-03-01 Heart Rate 104 bpm 2014-03-01 Respiratory Rate 22 2014-03-01 Blood pressure systolic 131 mmHg 2014-03-01 Blood pressure diastolic 64 mmHg 2014-03-01 MEDICATIONS Unknown Medications RESULTS No Results PROCEDURES Procedure Date Ordered Result Body Site STREP CULTURE Mar 01, 2014 URINE-NO MICRO Mar 01, 2014 INSTRUCTIONS MEDICATIONS ADMINISTERED No Known Medications [...]
--- OUTSIDE RECORDS SUMMARY | 2019-08-12 20:17 | XMS REPORT ---
Author Author Bridgett TORRES [facility] Address [address] [place] [address] Care Team Providers Care Registered Nurse Step Down Name Role Phone ESTEFANIA TORRES Unavailable PROBLEMS Type Condition ICD9-CM Code NHW83-FV Code Onset Dates Condition S tatus SNOMED Code Problem Migraine headache G43.909 Active 37 420122 Problem Mixed hyperlipidemia E78.2 Active [id number] ALLERGIES No Information ENCOUNTERS Encounter Location Date Diagnosis [facility] [address] [id number] [address] [place] [address] Feb, Mixed hyperlipidemia E78.2 ; Palpitations R00.2 and Abnormal thyroid blood test R94.6 [facility] [address] [facility] [id number] [address] [place] [address] Dec, [facility] [address] [facility] [id number] [address] [place] [address] Dec, [facility] [address] [id number] [address] [place] [address] Nov, Exercise counseling Z71.82 [facility] [address] [id number] [address] [place] [address] Nov, Impetigo L01.00 and Morbid o besity E66.01 [facility] [address] [facility] [id number] [address] [place] [address] Nov, Exercise counseling Z71.82 [facility] [address] [id number] [address] [place] [address] October, Exercise counseling Z71.82 [facility] [address] [id number] [address] [place] [address] October, Exercise counseling Z71.82 [facility] [address] [facility] [id number] [address] [place] [address] Sep, Mixed hyperlipidemia E78.2 ; Weight loss counseling, encounter for Z71.3 ; 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 and Morbid obesity E66.01 [facility] [address] [facility] [id number] [address] [place] [address] Sep, Exercise counseling Z71.82 [place] [address] [facility] [id number] [address] [place] [address] Sep, Exercise counseling Z71.82 [place] [address] [facility] [id number] [place] [address] Sep, Exercise counseling Z71.82 [place] [address] [place] [address] Sep, Exercise counseling Z71.82 [place] [address] [address] Aug, Screening for diabetes melli tus Z13.1 [place] [address] [address] Aug, Screening for diabetes melli tus Z13.1 [place] [address] [place] [id number] [address] [place] [address] Aug, Exercise counseling Z71.82 [place] [address] [address] Aug, Encounter for initial prescr iption of contraceptive pills Z30.011 ; Contraception management Z30.9 ; Contraceptive education Z30.09 ; Mixed hyperlipidemia E78.2 ; Weight loss counseling, encounter for Z71.3 ; Screening for diabetes mellitus Z13.1 ; Screening for thyroid disorder Z13.29 ; History of anemia Z86.2 and Morbid obesity E66.01 [facility] [address] [facility] [id number] [address] [place] [address] October, Seasonal allergic rhinitis, unspecified trigger J30.2 and BMI 40.0-44.9, adult Z68.41 [facility] [address] [place] [address] Sep, 2018 Pelvic pain R10.2 ; Chronic GERD K21.9 and BMI 40.0-44.9, adult Z68.41 [place] [address] [id number] [address] [place] [address] Jul, [facility] [place] [address] [address] Apr, Sore throat J02.9 ; Acute re current streptococcal tonsillitis J03.01 and BMI 40.0-44.9, adult Z68.41 [facility] [place] [address] [id number] [address] [place] [address] Mar, Sore throat J02.9 and Acute non-recurrent streptococcal tonsillitis J03.00 [place] [id number] [address] [place] [address] Feb, [facility] [address] [id number] [id number] Jan, Anxiety and depression F41.8 [facility] [id number] [place] [id number] Dec, [place] [id number] [place] [address] Nov, [place] [address] [id number] [place] [address] Jun, Normal in multigra sonny Z34.80 and First trimester Z33.[address] [address] Jun, Slow transit constipation K5 9.01 and Ota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 ear H92.01 [place] [address] [place] [address] May, [facility] [address] [id number] [address] [place] [address] May, Late menses N91.0 and Acute suppurative otitis media of left ear without spontaneous rupture of tympanic membrane, recurrence not specified H66.002 [facility] [address] [id number] [address] [place] [address] May, [facility] [address] [id number] [place] [address] Apr, [facility] [address] [facility] [id number] [address] [place] [address] Apr, Vaginal discharge N89.8 and Vaginal yeast infection B37.3 [place] [address] [id number] [place] [address] Mar, [facility] [address] [address] Feb, [facility] [address] [id number] [place] [address] Feb, [facility] [address] [address] 15 Feb, 2016 Abnormal cholesterol test E7 8.9 [place] [address] [address] 14 Feb, 2016 History of UTI Z87.440 ; Mix ed hyperlipidemia E78.2 and Abnormal thyroid blood test R94.6 [facility] [address] [place] [address] Jan, [place] [address] [id number] [place] [address] Jan, [place] [address] [address] Jan, Chest pain, unspecified type R07.9 ; Palpitations R00.2 ; Hyperlipidemia, unspecified hyperlipidemia type E78.5 and Dyspnea, unspecified type R06.00 [place] [address] [place] [address] [address] Jan, [facility] [address] [address] Dec, [facility] [address] [id number] [address] [place] [address] Dec, Upper respiratory tract infe ction, unspecified type J06.9 [place] [address] [address] Dec, Major depressive disorder, s kelly episode, unspecified F32.9 and Panic attacks F41.0 [place] [address] [address] Nov, History of anemia Z86.2 ; Ab normal thyroid blood test R94.6 ; Mixed hyperlipidemia E78.2 ; Migraine headache G43.909 and Acute maxillary sinusitis, recurrence not specified J01.00 [place] [address] [address] Nov, 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 898 ; Pain in left knee M25.562 and Pain in right knee M25.561 [place] [address] [address] Sep, Pelvic pain in female 625.9 [place] [address] [address] Sep, Pelvic pain R10.2 ; Galactor shahriar in female N64.3 ; Knee pain, left M25.562 and Knee pain, right M25.561 [facility] [address] [address] 17 Aug, 2015 Cough R05 and Laceration of thumb, left S61.012A [place] [address] [address] 09 Aug, 2015 Cough R05 ; History of UTI Z 87.440 and Contraception management Z30.9 [place] [address] [address] 02 Aug, 2015 History of UTI Z87.440 and I rregular menses N92.6 [place] [address] [address] 18 Jul, 2015 Leukopenia D72.819 and Neutr openia D70.9 [place] [address] [address] 18 Jul, 2015 Leukopenia D72.819 and Neutr openia D70.9 [place] [address] [address] 17 Jul, 2015 Migraine headache G43.909 ; Heart burn R12 and History of long-term use of multiple prescription drugs Z92.29 [facility] [address] [address] 15 Jul, 2015 Vaginal discharge N89.8 ; Hi gh risk sexual behavior Z72.51 ; Unprotected sex Z72.51 ; Acute upper respiratory infection, unspecified J06.9 and Other viral agents as the cause of diseases classified elsewhere B97.89 [place] [address] [address] 04 Jul, 2015 Sore throat J02.9 ; Sinusiti s J32.9 and Fever R50.9 [place] [address] [address] Jun, Migraine headache G43.909 an d Heart burn R12 [place] [address] [address] 14 Jun, 2015 [place] [address] [address] 07 Jun, 2015 [place] [address] [address] 06 Jun, 2015 Evaluation regarding contrac eption options Z30.09 ; Encounter for Depo-Provera contraception Z30.42 ; 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 269A [facility] [address] [address] May, Sore throat J02.9 [place] [address] [address] 24 Feb, 2015 Pelvic pain in female 625.9 and Menorrhagia 626.2 [place] [address] [address] Dec, Diarrhea 787.91 [place] [address] [address] Dec, Pelvic pain in female 625.9 and Ganglion cyst of wrist 727.41 [place] [address] [address] Nov, Eczema 692.9 [place] [address] [address] 12 Nov, 2014 [facility] [place] [facility] [address] [id number] [address] [place] [address], [place] [address] 14 Sep, 2014 [facility] [address] [id number] [address] [place] [address], [place] [address] Sep, [facility] [address] [id number] [address] [place] [address], [place] [address] Jul, [facility] [address] [id number] [address] [place] [address], [place] [address] Jul, [facility] [address] [id number] [address] [place] [address], [place] [address] Jun, [facility] [address] [id number] [address] [place] [address], [place] [address] Jun, [facility] [address] [id number] [address] [place] [address], [place] [address] Jun, [facility] [address] [id number] [address] [place] [address], [place] [address] Jun, [facility] [address] [id number] [address] [place] [address], [place] [address] Jun, [facility] [address] [id number] [address] [place] [address], [place] [address] Jun, [facility] [address] [id number] [address] [place] [address], [place] [address] Jun, [facility] [address] [id number] [address] [place] [address], [place] [address] Jun, [facility] [address] [id number] [address] [place] [address], [place] [address] May, [facility] [address] [id number] [address] [place] [address], [place] [address] May, [facility] [address] [id number] [address] [place] [address], [place] [address] May, [facility] [address] [id number] [address] [place] [address], [place] [address] May, [facility] [place] [facility] [address] [id number] [address] [place] [address], [place] [address] Apr, [facility] [place] [facility] [address] [id number] [address] [place] [address], [place] [address] Apr, [facility] [place] [facility] [address] [id number] [address] [place] [address], [place] [address] Apr, [facility] [place] [facility] [address] [id number] [address] [place] [address], [place] [address] Apr, [facility] [place] [facility] [address] [id number] [address] [place] [address], [place] [address] Apr, [facility] [place] [facility] [address] [id number] [address] [place] [address], [place] [address] Apr, [facility] [place] [facility] [address] [id number] [address] [place] [address], [place] [address] Feb, [facility] [place] [facility] [address] [id number] [address] [place] [address], [place] [address] 29 Feb, 2014 [facility] [place] [facility] [address] [id number] [address] [place] [address], [place] [address] Feb, [facility] [place] [facility] [address] [id number] [address] [place] [address], [place] [address] Feb, [facility] [place] [facility] [address] [id number] [address] [place] [address], [place] [address] Feb, 2013 [facility] [place] [facility] [address] [id number] [address] [place] [address], [place] [address] 26 Feb, 2013 [facility] [place] [facility] [address] [id number] [address] [place] [address], [place] [address] 25 Feb, 2014 [facility] [place] [facility] [address] [id number] [address] [place] [address], [place] [address] 25 Feb, 2013 [facility] [place] [facility] [address] [id number] [address] [place] [address], [place] [address] 23 Feb, 2013 [facility] [place] [facility] [address] [id number] [facility] [place] [address] 23 Feb, 2013 [facility] [address] [id number] [facility] [place] [address] 22 Feb, 2013 [facility] [address] [id number] [facility] [place] [address] 22 Feb, 2013 [facility] [address] [id number] [address] [place] [address], [place] [address] 19 Feb, 2013 [facility] [address] [id number] [address] [place] [address], [place] [address] 19 Feb, 2013 [facility] [address] [id number] [address] [place] [address], [place] [address] 12 Feb, 2013 [facility] [address] [id number] [address] [place] [address], [place] [address] 10 Feb, 2013 [facility] [address] [id number] [address] [place] [address], [place] [address] 10 Feb, 2013 [facility] [address] [id number] [address] [place] [address], [place] [address] 04 Feb, 2013 [facility] [address] [id number] [address] [place] [address], [place] [address] 03 Feb, 2013 [facility] [address] [id number] [address] [place] [address], [place] [address] 03 Feb, 2013 [facility] [address] [id number] [address] [place] [address], [place] [address] Jan, [facility] [address] [id number] [address] [place] [address], [place] [address] Jan, [facility] [address] [id number] [address] [place] [address], [place] [address] Jan, [facility] [address] [id number] [address] [place] [address], [place] [address] Jan, [facility] [address] [id number] [address] [place] [address], [place] [address] Jan, [facility] [place] [facility] [address] [id number] [address] [place] [address], [place] [address] Jan, [facility] [place] [facility] [address] [id number] [address] [place] [address], [place] [address] Jan, [facility] [address] [id number] [address] [place] [address], [place] [address] Jan, [facility] [place] [facility] [address] [id number] [address] [place] [address], [place] [address] Dec, [facility] [address] [id number] [address] [place] [address], [place] [address] Dec, [facility] [address] [id number] [address] [place] [address], [place] [address] Dec, [facility] [address] [id number] [address] [place] [address], [place] [address] Dec, [facility] [address] [id number] [address] [place] [address], [place] [address] Dec, [facility] [address] [id number] [address] [place] [address], [place] [address] Dec, [facility] [address] [id number] [address] [place] [address], [place] [address] Dec, [facility] [address] [id number] [address] [place] [address], [place] [address] Dec, [facility] [place] [facility] [address] [id number] [address] [place] [address], [place] [address] Dec, [facility] [place] [facility] [address] [id number] [address] [place] [address], [place] [address] Dec, [facility] [place] [facility] [address] [id number] [address] [place] [address], [place] [address] Dec, [facility] [place] [facility] [address] [id number] [address] [place] [address], [place] [address] Dec, [facility] [place] [facility] [address] [id number] [address] [place] [address], [place] [address] Nov, [facility] [address] [id number] [address] [place] [address], [place] [address] Nov, [facility] [address] [id number] [address] [place] [address], [place] [address] Nov, [facility] [address] [id number] [address] [place] [address], [place] [address] Nov, [facility] [address] [id number] [address] [place] [address], [place] [address] Nov, [facility] [address] [id number] [address] [place] [address], [place] [address] Nov, [facility] [address] [id number] [address] [place] [address], [place] [address] Nov, [facility] [address] [id number] [address] [place] [address], [place] [address] Nov, [facility] [address] [id number] [address] [place] [address], [place] [address] Nov, [facility] [address] [id number] [address] [place] [address], [place] [address] Nov, [facility] [address] [id number] [address] [place] [address], [place] [address] October, [facility] [address] [id number] [address] [place] [address], [place] [address] October, [facility] [address] [id number] [address] [place] [address], [place] [address] October, [facility] [place] [facility] [address] [id number] [address] [place] [address], [place] [address] October, [facility] [place] [facility] [address] [id number] [address] [place] [address], [place] [address] October, [facility] [address] [id number] [address] [place] [address], [place] [address] October, [facility] [place] [facility] [address] [id number] [facility] [place] [address] Sep, [facility] [address] [id number] [address] [place] [address], [place] [address] Sep, [facility] [address] [id number] [address] [place] [address], [place] [address] Sep, [facility] [address] [id number] [address] [place] [address], [place] [address] Sep, [facility] [address] [id number] [address] [place] [address], [place] [id number] Sep, [facility] [address] [id number] [address] [place] [address], [place] [id number] Sep, [facility] [address] [id number] [address] [place] [address], [place] [id number] Aug, [facility] [address] [id number] [address] [place] [address], [place] [id number] Aug, [facility] [address] [id number] [address] [place] [address], [place] [id number] Aug, [facility] [address] [id number] [address] [place] [address], [place] [address] Aug, [facility] [address] [id number] [address] [place] [address], [place] [id number] Aug, [facility] [address] [id number] [address] [place] [address], [place] [id number] Jun, [facility] [address] [id number] [address] [place] [address], [place] [id number] Jun, [facility] [address] [id number] [address] [place] [address], [place] [id number] Jun, [facility] [address] [id number] [address] [place] [address], [place] [id number] Jun, [facility] [address] [id number] [address] [place] [address], [place] [id number] Jun, [facility] [address] [facility] [id number] [address] [place] [id number] Jun, [facility] [address] [facility] [id number] [address] [place] [id number] Jun, [facility] [address] [facility] [id number] [address] [place] [id number] Mar, [facility] [address] [facility] [id number] [address] [place] [id number] Mar, IMMUNIZATIONS No Known Immunizations SOCIAL HISTORY [...]
--- OUTSIDE RECORDS SUMMARY | 2019-08-12 20:18 | XMS REPORT ---
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 Name Role Phone CRISTA ROSALES Unavailable PROBLEMS Type Condition ICD9-CM Code ZLT46-PU Code Onset Dates Condition S tatus SNOMED Code Problem Migraine headache G43.909 Active 37 351118 Problem Mixed hyperlipidemia E78.2 Active [id number] ALLERGIES No Information ENCOUNTERS Encounter Location Date Diagnosis [facility] [id number] [place] [address] Dec, [facility] [address] [address] Dec, [facility] [id number] [place] [address] Nov, Exercise counseling Z71.82 [facility] [address] [id number] [address] [place] [address] Nov, Impetigo L01.00 and Morbid o besity E66.01 [facility] [address] [place] [address] Nov, Exercise counseling Z71.82 [facility] [address] [place] [address] October, Exercise counseling Z71.82 [place] [address] [id number] [place] [address] October, Exercise counseling Z71.82 [facility] [address] [id number] [address] [place] [address] Sep, Mixed hyperlipidemia E78.2 ; Weight loss counseling, encounter for Z71.3 ; 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 and Morbid obesity E66.01 [facility] [address] [address] Sep, Exercise counseling Z71.82 [facility] [address] [address] Sep, Exercise counseling Z71.82 [place] [address] [address] Sep, Exercise counseling Z71.82 [place] [address] [address] Sep, Exercise counseling Z71.82 [place] [address] [address] Aug, Screening for diabetes melli tus Z13.1 [place] [address] [address] Aug, Screening for diabetes melli tus Z13.1 [place] [address] [address] Aug, Exercise counseling Z71.82 [place] [address] [address] Aug, Encounter for initial prescr iption of contraceptive pills Z30.011 ; Contraception management Z30.9 ; Contraceptive education Z30.09 ; Mixed hyperlipidemia E78.2 ; Weight loss counseling, encounter for Z71.3 ; Screening for diabetes mellitus Z13.1 ; Screening for thyroid disorder Z13.29 ; History of anemia Z86.2 and Morbid obesity E66.01 [facility] [address] [address] October, Seasonal allergic rhinitis, unspecified trigger J30.2 and BMI 40.0-44.9, adult Z68.41 [facility] [address] [address] Sep, Pelvic pain R10.2 ; Chronic GERD K21.9 and BMI 40.0-44.9, adult Z68.41 [facility] [address] [facility] [id number] [address] [place] [address] 20 Jul, 2017 [facility] [address] [facility] [id number] [address] [place] [address] 07 Apr, 2017 Sore throat J02.9 ; Acute re current streptococcal tonsillitis J03.01 and BMI 40.0-44.9, adult Z68.41 [facility] [address] [facility] [id number] [address] [place] [address] 09 Mar, 2017 Sore throat J02.9 and Acute non-recurrent streptococcal tonsillitis J03.00 [place] [address] [facility] [id number] [address] [place] [address] 05 Feb, 2017 [facility] [id number] [place] [id number] Jan, Anxiety and depression F41.8 [facility] [id number] [place] [id number] Dec, [place] [address] [id number] [place] [address] Nov, [place] [address] [place] [id number] [address] [place] [address] Jun, Normal in multigra sonny Z34.80 and First trimester Z33.1 [place] [address] [id number] [address] [place] [address] Jun, Slow transit constipation K5 9.01 and Ota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 ear H92.01 [place] [address] [place] [id number] [address] [place] [address] May, [facility] [address] [facility] [id number] [address] [place] [address] May, Late menses N91.0 and Acute suppurative otitis media of left ear without spontaneous rupture of tympanic membrane, recurrence not specified H66.002 [facility] [address] [facility] [id number] [address] [place] [address] May, [facility] [address] [facility] [id number] [address] [place] [address] Apr, [facility] [address] [facility] [id number] [address] [place] [address] Apr, Vaginal discharge N89.8 and Vaginal yeast infection B37.3 [facility] [address] [facility] [id number] [address] [place] [address] Mar, [facility] [address] [facility] [id number] [place] [address] Feb, [facility] [address] [id number] [address] [place] [address] Feb, [place] [address] [address] Feb, Abnormal cholesterol test E7 8.9 [facility] [address] [address] 14 Feb, 2016 History of UTI Z87.440 ; Mix ed hyperlipidemia E78.2 and Abnormal thyroid blood test R94.6 [facility] [address] [place] [address] Jan, [place] [address] [id number] [place] [address] Jan, [facility] [address] [place] [address] Jan, Chest pain, unspecified type R07.9 ; Palpitations R00.2 ; Hyperlipidemia, unspecified hyperlipidemia type E78.5 and Dyspnea, unspecified type R06.00 [facility] [id number] [address] [place] [address] Jan, [place] [address] [id number] [place] [address] Dec, [facility] [place] [id number] [address] Dec, Upper respiratory tract infe ction, unspecified type J06.9 [place] [address] [id number] [place] [address] Dec, Major depressive disorder, s kelly episode, unspecified F32.9 and Panic attacks F41.0 [place] [address] [address] Nov, History of anemia Z86.2 ; Ab normal thyroid blood test R94.6 ; Mixed hyperlipidemia E78.2 ; Migraine headache G43.909 and Acute maxillary sinusitis, recurrence not specified J01.00 [place] [address] [address] Nov, 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 898 ; Pain in left knee M25.562 and Pain in right knee M25.561 [place] [address] [address] Sep, Pelvic pain in female 625.9 [place] [address] [address] Sep, Pelvic pain R10.2 ; Galactor shahriar in female N64.3 ; Knee pain, left M25.562 and Knee pain, right M25.561 [facility] [id number] [place] [address] Aug, Cough R05 and Laceration of thumb, left S61.012A [facility] [id number] [place] [address] 09 Aug, 2015 Cough R05 ; History of UTI Z 87.440 and Contraception management Z30.9 [facility] [id number] [place] [address] 02 Aug, 2015 History of UTI Z87.440 and I rregular menses N92.6 [place] [address] [address] 18 Jul, 2015 Leukopenia D72.819 and Neutr openia D70.9 [place] [address] [address] 18 Jul, 2015 Leukopenia D72.819 and Neutr openia D70.9 [place] [address] [address] 17 Jul, 2015 Migraine headache G43.909 ; Heart burn R12 and History of long-term use of multiple prescription drugs Z92.29 [facility] [address] [address] 15 Jul, 2015 Vaginal discharge N89.8 ; Hi gh risk sexual behavior Z72.51 ; Unprotected sex Z72.51 ; Acute upper respiratory infection, unspecified J06.9 and Other viral agents as the cause of diseases classified elsewhere B97.89 [place] [address] [id number] [place] [address] 04 Jul, 2015 Sore throat J02.9 ; Sinusiti s J32.9 and Fever R50.9 [place] [address] [address] Jun, Migraine headache G43.909 an d Heart burn R12 [place] [address] [address] Jun, [facility] [address] [address] 07 Jun, 2015 [place] [address] [address] 06 Jun, 2015 Evaluation regarding contrac eption options Z30.09 ; Encounter for Depo-Provera contraception Z30.42 ; 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 269A [facility] IN [address] [address] May, Sore throat J02.[address] [address] 24 Feb, 2015 Pelvic pain in female 625.9 and Menorrhagia 626.[address] [address] Dec, Diarrhea 787.[address] [address] Dec, Pelvic pain in female 625.9 and Ganglion cyst of wrist 727.[address] [address] Nov, Eczema 692.[address] [address] 12 Nov, [address] [address] 14 Sep, [address] [address] Sep, [facility] [address] [id number] [address] [place] [address], [place] [address] Jul, [facility] [address] [id number] [address] [place] [address], [place] [address] Jul, [facility] [address] [id number] [address] [place] [address], [place] [address] Jun, [facility] [address] [id number] [address] [place] [address], [place] [address] Jun, [facility] [address] [id number] [address] [place] [address], [place] [address] Jun, [facility] [address] [id number] [address] [place] [address], [place] [address] Jun, [facility] [address] [id number] [address] [place] [address], [place] [address] Jun, [facility] [address] [id number] [address] [place] [address], [place] [address] Jun, [facility] [address] [id number] [address] [place] [address], [place] [address] Jun, [facility] [address] [id number] [address] [place] [address], [place] [address] Jun, [facility] [address] [id number] [address] [place] [address], [place] [address] May, [facility] [address] [id number] [address] [place] [address], [place] [address] May, [facility] [address] [id number] [address] [place] [address], [place] [address] May, [facility] [address] [id number] [address] [place] [address], [place] [address] May, [facility] [address] [id number] [address] [place] [address], [place] [address] Apr, [facility] [address] [id number] [address] [place] [address], [place] [address] Apr, [facility] [address] [id number] [address] [place] [address], [place] [address] Apr, [facility] [address] [id number] [address] [place] [address], [place] [address] Apr, [facility] [address] [id number] [address] [place] [address], [place] [address] Apr, [facility] [address] [id number] [address] [place] [address], [place] [address] Apr, [facility] [address] [id number] [address] [place] [address], [place] [address] 29 Feb, 2014 [facility] [address] [id number] [address] [place] [address], [place] [address] 29 Feb, 2013 [facility] [address] [id number] [address] [place] [address], [place] [address] Feb, 2013 [facility] [address] [id number] [address] [place] [address], [place] [address] Feb, 2013 [facility] [address] [id number] [address] [place] [address], [place] [address] Feb, 2013 [facility] [address] [id number] [address] [place] [address], [place] [address] 26 Feb, 2013 [facility] [address] [id number] [address] [place] [address], [place] [address] 25 Feb, 2013 [facility] [address] [id number] [address] [place] [address], [place] [address] 25 Feb, 2013 [facility] [address] [id number] [address] [place] [address], [place] [address] 23 Feb, 2013 [facility] [address] [id number] [address] [place] [address], [place] [address] 23 Feb, 2013 [facility] [address] [id number] [address] [place] [address], [place] [address] 22 Feb, 2013 [facility] [address] [id number] [facility] [place] [address] 22 Feb, 2013 [facility] [address] [id number] [address] [place] [address], [place] [address] 19 Feb, 2013 [facility] [address] [id number] [address] [place] [address], [place] [address] 19 Feb, 2013 [facility] [address] [id number] [address] [place] [address], [place] [address] 12 Feb, 2013 [facility] [address] [id number] [address] [place] [address], [place] [address] 10 Feb, 2013 [facility] [address] [id number] [address] [place] [address], [place] [address] 10 Feb, 2013 [facility] [address] [id number] [address] [place] [address], [place] [address] 04 Feb, 2013 [facility] [address] [id number] [address] [place] [address], [place] [address] Feb, 2013 [facility] [address] [id number] [address] [place] [address], [place] [address] Feb, 2013 [facility] [address] [id number] [address] [place] [address], [place] [address] Jan, [facility] [address] [id number] [address] [place] [address], [place] [address] Jan, [facility] [address] [id number] [address] [place] [address], [place] [address] Jan, [facility] [address] [id number] [address] [place] [address], [place] [address] Jan, [facility] [address] [id number] [address] [place] [address], [place] [address] Jan, [facility] [address] [id number] [address] [place] [address], [place] [address] Jan, [facility] [address] [id number] [address] [place] [address], [place] [address] Jan, [facility] [address] [id number] [address] [place] [address], [place] [address] Jan, [facility] [address] [id number] [address] [place] [address], [place] [address] Dec, [facility] [address] [id number] [address] [place] [address], [place] [address] Dec, [facility] [address] [id number] [address] [place] [address], [place] [address] Dec, [facility] [address] [id number] [address] [place] [address], [place] [address] Dec, [facility] [address] [id number] [address] [place] [address], [place] [address] Dec, [facility] [address] [id number] [address] [place] [address], [place] [address] Dec, [facility] [address] [id number] [address] [place] [address], [place] [address] Dec, [facility] [address] [id number] [address] [place] [address], [place] [address] Dec, [facility] [address] [id number] [address] [place] [address], [place] [address] Dec, [facility] [address] [id number] [address] [place] [address], [place] [address] Dec, [facility] [address] [id number] [address] [place] [address], [place] [address] Dec, [facility] [address] [id number] [address] [place] [address], [place] [address] Dec, [facility] [address] [id number] [address] [place] [address], [place] [address] Nov, [facility] [address] [id number] [address] [place] [address], [place] [address] Nov, [facility] [address] [id number] [facility] [place] [address] Nov, [facility] [address] [id number] [facility] [place] [address] Nov, [facility] [address] [id number] [address] [place] [address], [place] [address] Nov, [facility] [address] [id number] [address] [place] [address], [place] [address] Nov, [facility] [address] [id number] [address] [place] [address], [place] [address] Nov, [facility] [address] [id number] [address] [place] [address], [place] [address] Nov, [facility] [address] [id number] [address] [place] [address], [place] [address] Nov, [facility] [address] [id number] [address] [place] [address], [place] [address] Nov, [facility] [address] [id number] [address] [place] [address], [place] [address] October, [facility] [address] [id number] [address] [place] [address], [place] [address] October, [facility] [address] [id number] [address] [place] [address], [place] [address] October, [facility] [address] [id number] [address] [place] [address], [place] [address] October, [facility] [address] [id number] [address] [place] [address], [place] [address] October, [facility] [address] [id number] [address] [place] [address], [place] [address] October, [facility] [address] [id number] [address] [place] [address], [place] [address] Sep, [facility] [address] [id number] [address] [place] [address], [place] [address] Sep, [facility] [address] [id number] [facility] [place] [address] Sep, [facility] [address] [id number] [facility] [place] [address] Sep, [facility] [address] [id number] [address] [place] [address], [place] [address] Sep, [facility] [address] [id number] [address] [place] [address], [place] [address] Sep, [facility] [address] [id number] [address] [place] [address], [place] [address] Aug, [facility] [address] [id number] [address] [place] [address], [place] [address] Aug, [facility] [address] [id number] [address] [place] [address], [place] [address] Aug, [facility] [address] [id number] [address] [place] [address], [place] [address] Aug, [facility] [address] [id number] [address] [place] [address], [place] [address] Aug, [facility] [address] [id number] [address] [place] [address], [place] [address] Jun, [facility] [address] [id number] [address] [place] [address], [place] [address] Jun, [facility] [address] [id number] [address] [place] [address], [place] [address] Jun, [facility] [address] [id number] [address] [place] [address], [place] [address] Jun, [facility] [address] [id number] [address] [place] [address], [place] [address] Jun, [facility] [address] [id number] [address] [place] [address], [place] [address] Jun, [facility] [address] [id number] [address] [place] [id number] Jun, [facility] [address] [facility] [id number] [address] [place] [id number] Mar, [facility] [address] [facility] [id number] [address] [place] [id number] Mar, IMMUNIZATIONS No Known Immunizations SOCIAL HISTORY Never Assessed REASON FOR VISIT PLAN OF CARE VITAL SIGNS Height 65 in 2014-07-04 Weight 247.2 lbs 2014-07-04 Temperature 98.3 degrees Fahrenheit 2014-07-04 Heart Rate 80 bpm 2014-07-04 Respiratory Rate 20 2014-07-04 Blood pressure systolic 128 mmHg 2014-07-04 Blood pressure diastolic 80 mmHg 2014-07-04 MEDICATIONS Unknown Medications RESULTS No Results PROCEDURES Procedure Date Ordered Result Body Site X-RAY EXAM OF ABDOMEN Jul 04, 2014 INSTRUCTIONS MEDICATIONS ADMINISTERED No Known Medications [...]
--- OUTSIDE RECORDS SUMMARY | 2019-08-12 20:18 | XMS REPORT ---
Author Author Bridgett TORRES [facility] Address [address] [place] [address] Care Team Providers Care Coater Operator Insulation Board Name Role Phone ESTEFANIA TORRES Unavailable PROBLEMS Type Condition ICD9-CM Code CCR31-XG Code Onset Dates Condition S tatus SNOMED Code Problem Migraine headache G43.909 Active 37 992742 Problem Mixed hyperlipidemia E78.2 Active [id number] ALLERGIES No Information ENCOUNTERS Encounter Location Date Diagnosis [facility] [id number] [address] [place] [place] [address] Dec, [facility] [address] [address] Dec, [facility] [address] [id number] [address] [place] [address] Nov, Exercise counseling Z71.82 [facility] [address] [id number] [address] [place] [address] Nov, Impetigo L01.00 and Morbid o besity E66.01 [facility] [id number] [place] [address] Nov, Exercise counseling Z71.82 [facility] [address] [id number] [address] [place] [address] October, Exercise counseling Z71.82 [facility] [address] [id number] [address] [place] [address] October, Exercise counseling Z71.82 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 [address] [address] Sep, Exercise counseling Z71.82 [facility] [id number] [place] [address] Sep, Exercise counseling Z71.82 [place] [address] [address] Sep, Exercise counseling Z71.82 [place] [address] [address] Sep, Exercise counseling Z71.82 [place] [address] [address] Aug, Screening for diabetes melli tus Z13.1 [place] [address] [address] Aug, Screening for diabetes melli tus Z13.1 [place] [address] [address] Aug, Exercise counseling Z71.82 [place] [address] [address] Aug, Encounter for initial prescr iption of contraceptive pills Z30.011 ; Contraception management Z30.9 ; Contraceptive education Z30.09 ; Mixed hyperlipidemia E78.2 ; Weight loss counseling, encounter for Z71.3 ; Screening for diabetes mellitus Z13.1 ; Screening for thyroid disorder Z13.29 ; History of anemia Z86.2 and Morbid obesity E66.01 [facility] [address] [address] October, Seasonal allergic rhinitis, unspecified trigger J30.2 and BMI 40.0-44.9, adult Z68.41 [facility] [address] [address] Sep, Pelvic pain R10.2 ; Chronic GERD K21.9 and BMI 40.0-44.9, adult Z68.41 [facility] [address] [facility] [id number] [address] [place] [address] Jul, [facility] WALK IN [facility] [address] [facility] [id number] [address] [place] [address] Apr, Sore throat J02.9 ; Acute re current streptococcal tonsillitis J03.01 and BMI 40.0-44.9, adult Z68.41 [facility] WALK IN [facility] [address] [facility] [id number] [address] [address] 09 Mar, 2017 Sore throat J02.9 and Acute non-recurrent streptococcal tonsillitis J03.00 [place] [address] [facility] [id number] [address] [place] [address] Feb, [facility] [address] [id number] [id number] Jan, Anxiety and depression F41.8 [facility] [id number] [place] [id number] Dec, [place] [id number] [place] [address] Nov, [place] [address] [id number] [address] [place] [address] Jun, Normal in multigra sonny Z34.80 and First trimester Z33.1 [place] [id number] [place] [address] Jun, Slow transit constipation K5 9.01 and Ota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 ear H92.01 [place] [address] [id number] [address] [place] [address] May, [facility] WALK IN [facility] [address] [id number] [address] [address] May, Late menses N91.0 and Acute suppurative otitis media of left ear without spontaneous rupture of tympanic membrane, recurrence not specified H66.002 [facility] [address] [facility] [id number] [address] [place] [address] May, [facility] [address] [facility] [id number] [address] [place] [place] [address] Apr, [facility] WALK IN [facility] [address] [facility] [id number] [address] [place] [address] Apr, Vaginal discharge N89.8 and Vaginal yeast infection B37.3 [facility] [address] [facility] [id number] [address] [place] [address] Mar, [facility] [address] [facility] [id number] [address] [place] [address] Feb, [facility] [address] [facility] [id number] [address] [place] [address] Feb, [place] [address] [address] 15 Feb, 2016 Abnormal cholesterol test E7 8.9 [facility] [address] [facility] [id number] [address] [place] [address] 14 Feb, 2016 History of UTI Z87.440 ; Mix ed hyperlipidemia E78.2 and Abnormal thyroid blood test R94.6 [facility] [address] [place] [address] Jan, 16 [place] [id number] [place] [address] Jan, [facility] [address] [id number] [address] [place] [address] Jan, Chest pain, unspecified type R07.9 ; Palpitations R00.2 ; Hyperlipidemia, unspecified hyperlipidemia type E78.5 and Dyspnea, unspecified type R06.00 [facility] [address] [facility] [id number] [address] [address] Jan, [facility] [address] [facility] [id number] [address] [place] [address] Dec, [facility] W[facility] IN [facility] [id number] [place] [address] Dec, Upper respiratory tract infe ction, unspecified type J06.9 [place] [address] [address] Dec, Major depressive disorder, s kelly episode, unspecified F32.9 and Panic attacks F41.0 [place] [address] [address] Nov, History of anemia Z86.2 ; Ab normal thyroid blood test R94.6 ; Mixed hyperlipidemia E78.2 ; Migraine headache G43.909 and Acute maxillary sinusitis, recurrence not specified J01.00 [place] [address] [address] Nov, 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 898 ; Pain in left knee M25.562 and Pain in right knee M25.561 [place] [address] [address] Sep, Pelvic pain in female 625.9 [place] [address] [address] Sep, Pelvic pain R10.2 ; Galactor shahriar in female N64.3 ; Knee pain, left M25.562 and Knee pain, right M25.561 [facility] WALK IN [facility] [id number] [place] [address] Aug, Cough R05 and Laceration of thumb, left S61.012A [facility] [id number] [place] [address] 09 Aug, 2015 Cough R05 ; History of UTI Z 87.440 and Contraception management Z30.9 [facility] [address] [address] 02 Aug, 2015 History of UTI Z87.440 and I rregular menses N92.6 [place] [address] [address] 18 Jul, 2015 Leukopenia D72.819 and Neutr openia D70.9 [place] [address] [address] 18 Jul, 2015 Leukopenia D72.819 and Neutr openia D70.9 [place] [address] [address] 17 Jul, 2015 Migraine headache G43.909 ; Heart burn R12 and History of long-term use of multiple prescription drugs Z92.29 [facility] [address] [address] 15 Jul, 2015 Vaginal discharge N89.8 ; Hi gh risk sexual behavior Z72.51 ; Unprotected sex Z72.51 ; Acute upper respiratory infection, unspecified J06.9 and Other viral agents as the cause of diseases classified elsewhere B97.89 [place] [address] [address] 04 Jul, 2015 Sore throat J02.9 ; Sinusiti s J32.9 and Fever R50.9 [place] [address] [address] Jun, Migraine headache G43.909 an d Heart burn R12 [place] [address] [address] Jun, [place] [address] [address] Jun, [address] [address] 06 Jun, 2015 Evaluation regarding contrac eption options Z30.09 ; Encounter for Depo-Provera contraception Z30.42 ; Encntr for 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 269A [facility] WALK IN [address] [address] May, Sore throat J02.[address] [address] 24 Feb, 2015 Pelvic pain in female 625.9 and Menorrhagia 626.[address] [address] 16 Dec, 2014 [address] [address] Dec, Pelvic pain in female 625.9 and Ganglion cyst of wrist 727.[address] [address] 16 Nov, 2014 Eczema [address] [address] 12 Nov, [address] [address] 14 Sep, [address] [address] Sep, [facility] [address] [id number] [address] [place] [address], [place] [address] Jul, [facility] [address] [id number] [address] [place] [address], [place] [address] Jul, [facility] [address] [id number] [address] [place] [address], [place] [address] Jun, [facility] [address] [id number] [address] [place] [address], [place] [address] Jun, [facility] [address] [id number] [address] [place] [address], [place] [address] Jun, [facility] [address] [id number] [address] [place] [address], [place] [address] Jun, [facility] [address] [id number] [address] [place] [address], [place] [address] Jun, [facility] [address] [id number] [address] [place] [address], [place] [address] Jun, [facility] [address] [id number] [address] [place] [address], [place] [address] Jun, [facility] [address] [id number] [address] [place] [address], [place] [address] Jun, [facility] [address] [id number] [address] [place] [address], [place] [address] May, [facility] [address] [id number] [address] [place] [place] [address] May, [facility] [address] [id number] [address] [place] [address], [place] [address] May, [facility] [address] [id number] [address] [place] [address], [place] [address] May, [facility] [address] [id number] [address] [place] [address], [place] [address] Apr, [facility] [address] [id number] [address] [place] [address], [place] [address] Apr, [facility] [address] [id number] [address] [place] [address], [place] [address] Apr, [facility] [address] [id number] [address] [place] [address], [place] [address] Apr, [facility] [address] [id number] [address] [place] [address], [place] [address] Apr, [facility] [address] [id number] [address] [place] [address], [place] [address] Apr, [facility] [address] [id number] [address] [place] [address], [place] [address] 29 Feb, 2014 [facility] [address] [id number] [address] [place] [address], [place] [address] 29 Feb, 2013 [facility] [address] [id number] [address] [place] [address], [place] [address] Feb, 2013 [facility] [address] [id number] [address] [place] [address], [place] [address] Feb, 2013 [facility] [address] [id number] [address] [place] [address], [place] [address] Feb, 2013 [facility] [address] [id number] [address] [place] [address], [place] [address] 26 Feb, 2013 [facility] [address] [id number] [address] [place] [address], [place] [address] 25 Feb, 2013 [facility] [address] [id number] [address] [place] [address], [place] [address] 25 Feb, 2013 [facility] [address] [id number] [address] [place] [address], [place] [address] 23 Feb, 2013 [facility] [address] [id number] [address] [place] [address], [place] [address] 23 Feb, 2013 [facility] [address] [id number] [address] [place] [address], [place] [address] Feb, 2013 [facility] [address] [id number] [facility] [place] [address] 22 Feb, 2013 [facility] [address] [id number] [address] [place] [address], [place] [address] Feb, 2013 [facility] [address] [id number] [address] [place] [address], [place] [address] Feb, 2013 [facility] [address] [id number] [address] [place] [address], [place] [address] 12 Feb, 2013 [facility] [address] [id number] [address] [place] [address], [place] [address] 10 Feb, 2013 [facility] [address] [id number] [address] [place] [address], [place] [address] Feb, 2013 [facility] [address] [id number] [address] [place] [address], [place] [address] Feb, 2013 [facility] [address] [id number] [address] [place] [address], [place] [address] Feb, 2013 [facility] [address] [id number] [address] [place] [address], [place] [address] Feb, [facility] [address] [id number] [address] [place] [address], [place] [address] Jan, [facility] [address] [id number] [address] [place] [address], [place] [address] Jan, [facility] [address] [id number] [address] [place] [address], [place] [address] Jan, [facility] [address] [id number] [address] [place] [address], [place] [address] Jan, [facility] [address] [id number] [address] [place] [address], [place] [address] Jan, [facility] [address] [id number] [address] [place] [address], [place] [address] Jan, [facility] [address] [id number] [address] [place] [address], [place] [address] Jan, [facility] [address] [id number] [address] [place] [address], [place] [address] Jan, [facility] [address] [id number] [address] [place] [address], [place] [address] Dec, [facility] [address] [id number] [address] [place] [address], [place] [address] Dec, [facility] [address] [id number] [address] [place] [address], [place] [address] Dec, [facility] [address] [id number] [address] [place] [address], [place] [address] Dec, [facility] [address] [id number] [address] [place] [address], [place] [address] Dec, [facility] [address] [id number] [address] [place] [address], [place] [address] Dec, [facility] [address] [id number] [address] [place] [address], [place] [address] Dec, [facility] [address] [id number] [address] [place] [address], [place] [address] Dec, [facility] [address] [id number] [address] [place] [address], [place] [address] Dec, [facility] [address] [id number] [address] [place] [address], [place] [address] Dec, [facility] [address] [id number] [address] [place] [address], [place] [address] Dec, [facility] [address] [id number] [address] [place] [address], [place] [address] Dec, [facility] [address] [id number] [address] [place] [address], [place] [address] Nov, [facility] [address] [id number] [address] [place] [address], [place] [address] Nov, [facility] [address] [id number] [facility] [place] [address] Nov, [facility] [address] [id number] [address] [place] [address], [place] [address] Nov, [facility] [address] [id number] [address] [place] [address], [place] [address] Nov, [facility] [address] [id number] [address] [place] [address], [place] [address] Nov, [facility] [address] [id number] [address] [place] [address], [place] [address] Nov, [facility] [address] [id number] [address] [place] [address], [place] [address] Nov, [facility] [address] [id number] [address] [place] [address], [place] [address] Nov, [facility] [address] [id number] [address] [place] [address], [place] [address] Nov, [facility] [address] [id number] [address] [place] [address], [place] [address] October, [facility] [address] [id number] [address] [place] [address], [place] [address] October, [facility] [address] [id number] [address] [place] [address], [place] [address] October, [facility] [address] [id number] [address] [place] [address], [place] [address] October, [facility] [address] [id number] [address] [place] [address], [place] [address] October, [facility] [address] [id number] [address] [place] [address], [place] [address] October, [facility] [address] [id number] [address] [place] [address], [place] [address] Sep, [facility] [address] [id number] [address] [place] [address], [place] [address] Sep, [facility] [address] [id number] [address] [place] [address], [place] [address] Sep, [facility] [address] [id number] [address] [place] [address], [place] [address] Sep, [facility] [address] [id number] [address] [place] [address], [place] [address] Sep, [facility] [address] [id number] [address] [place] [address], [place] [address] Sep, [facility] [address] [id number] [address] [place] [address], [place] [address] Aug, [facility] [address] [id number] [address] [place] [address], [place] [id number] Aug, [facility] [address] [id number] [address] [place] [address], [place] [address] Aug, [facility] [address] [id number] [address] [place] [address], [place] [address] Aug, [facility] [address] [id number] [address] [place] [address], [place] [address] Aug, [facility] [address] [id number] [address] [place] [address], [place] [address] Jun, [facility] [address] [id number] [address] [place] [address], [place] [address] Jun, [facility] [address] [id number] [address] [place] [address], [place] [address] Jun, [facility] [address] [id number] [address] [place] [address], [place] [address] Jun, [facility] [address] [id number] [address] [place] [address], [place] [address] Jun, [facility] [address] [id number] [address] [place] [address], [place] [address] Jun, [facility] [address] [id number] [address] [place] [phone] Jun, [facility] [address] [facility] [id number] [address] [place] [place] [id number] Mar, [facility] [address] [facility] [id number] [address] [place] [id number] Mar, IMMUNIZATIONS No Known Immunizations SOCIAL HISTORY [...]
--- OUTSIDE RECORDS SUMMARY | 2019-08-12 20:18 | XMS REPORT ---
Author Author Bridgett TORRES [facility] Address [address] [place] [address] Care Team Providers Care Aids Social Worker Name Role Phone ESTEFANIA TORRES Unavailable PROBLEMS Type Condition ICD9-CM Code YRB46-TE Code Onset Dates Condition S tatus SNOMED Code Problem Migraine headache G43.909 Active 37 853467 Problem Mixed hyperlipidemia E78.2 Active [id number] ALLERGIES No Information ENCOUNTERS Encounter Location Date Diagnosis [facility] [address] [id number] [address] [place] [address] Dec, [facility] [address] [address] Dec, [facility] [address] [id number] [address] [place] [address] Nov, Exercise counseling Z71.82 [facility] [address] [id number] [address] [place] [address] Nov, Impetigo L01.00 and Morbid o besity E66.01 [facility] [id number] [place] [address] Nov, Exercise counseling Z71.82 [facility] [address] [id number] [address] [place] [address] October, Exercise counseling Z71.82 [facility] [address] [id number] [address] [place] [address] October, Exercise counseling Z71.82 [facility] [address] [id number] [address] [place] [address] Sep, Mixed hyperlipidemia E78.2 ; Weight loss counseling, encounter for Z71.3 ; 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 and Morbid obesity E66.01 [facility] [address] [address] Sep, Exercise counseling Z71.82 [facility] [id number] [place] [address] Sep, Exercise counseling Z71.82 [place] [address] [address] Sep, Exercise counseling Z71.82 [place] [address] [address] Sep, Exercise counseling Z71.82 [place] [address] [address] Aug, Screening for diabetes melli tus Z13.1 [place] [address] [address] Aug, Screening for diabetes melli tus Z13.1 [place] [address] [address] Aug, Exercise counseling Z71.82 [place] [address] [address] Aug, Encounter for initial prescr iption of contraceptive pills Z30.011 ; Contraception management Z30.9 ; Contraceptive education Z30.09 ; Mixed hyperlipidemia E78.2 ; Weight loss counseling, encounter for Z71.3 ; Screening for diabetes mellitus Z13.1 ; Screening for thyroid disorder Z13.29 ; History of anemia Z86.2 and Morbid obesity E66.01 [facility] [address] [address] October, Seasonal allergic rhinitis, unspecified trigger J30.2 and BMI 40.0-44.9, adult Z68.41 [facility] [address] [address] Sep, Pelvic pain R10.2 ; Chronic GERD K21.9 and BMI 40.0-44.9, adult Z68.41 [facility] [address] [facility] [id number] [address] [place] [address] Jul, [facility] IN [facility] [address] [facility] [id number] [address] [place] [address] Apr, Sore throat J02.9 ; Acute re current streptococcal tonsillitis J03.01 and BMI 40.0-44.9, adult Z68.41 [facility] IN [facility] [address] [facility] [id number] [address] [place] [address] 09 Mar, 2017 Sore throat J02.9 and Acute non-recurrent streptococcal tonsillitis J03.00 [place] [address] [facility] [id number] [address] [place] [address] Feb, [facility] [address] [id number] [id number] Jan, Anxiety and depression F41.8 [facility] [id number] [place] [id number] Dec, [place] [id number] [place] [address] Nov, [place] [address] [id number] [address] [place] [address] Jun, Normal in multigra sonny Z34.80 and First trimester Z33.1 [place] [id number] [place] [address] Jun, Slow transit constipation K5 9.01 and Ota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 ear H92.01 [place] [address] [id number] [address] [place] [address] May, [facility] [address] [id number] [address] [place] [address] May, Late menses N91.0 and Acute suppurative otitis media of left ear without spontaneous rupture of tympanic membrane, recurrence not specified H66.002 [facility] [address] [facility] [id number] [address] [place] [address] May, [facility] [address] [facility] [id number] [address] [place] [address] Apr, [facility]ALK IN [facility] [address] [facility] [id number] [address] [place] [address] Apr, Vaginal discharge N89.8 and Vaginal yeast infection B37.3 [facility] [address] [facility] [id number] [address] [place] [address] Mar, [facility] [address] [facility] [id number] [address] [place] [address] Feb, [facility] [address] [facility] [id number] [address] [place] [address] Feb, [place] [address] [address] 15 Feb, 2016 Abnormal cholesterol test E7 8.9 [facility] [address] [facility] [id number] [address] [place] [address] 14 Feb, 2016 History of UTI Z87.440 ; Mix ed hyperlipidemia E78.2 and Abnormal thyroid blood test R94.6 [facility] [address] [place] [address] Jan, 16 [place] [id number] [place] [address] Jan, [facility] [id number] [address] [place] [address] Jan, Chest pain, unspecified type R07.9 ; Palpitations R00.2 ; Hyperlipidemia, unspecified hyperlipidemia type E78.5 and Dyspnea, unspecified type R06.00 [facility] [address] [facility] [id number] [address] [place] [address] Jan, [facility] [address] [facility] [id number] [address] [place] [address] Dec, [facility] IN [facility] [id number] [place] [address] Dec, Upper respiratory tract infe ction, unspecified type J06.9 [place] [address] [address] Dec, Major depressive disorder, s kelly episode, unspecified F32.9 and Panic attacks F41.0 [place] [address] [address] Nov, History of anemia Z86.2 ; Ab normal thyroid blood test R94.6 ; Mixed hyperlipidemia E78.2 ; Migraine headache G43.909 and Acute maxillary sinusitis, recurrence not specified J01.00 [place] [address] [address] Nov, 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 898 ; Pain in left knee M25.562 and Pain in right knee M25.561 [place] [address] [address] Sep, Pelvic pain in female 625.9 [place] [address] [address] Sep, Pelvic pain R10.2 ; Galactor shahriar in female N64.3 ; Knee pain, left M25.562 and Knee pain, right M25.561 [facility] IN [facility] [id number] [place] [address] Aug, Cough R05 and Laceration of thumb, left S61.012A [facility] [id number] [place] [address] 09 Aug, 2015 Cough R05 ; History of UTI Z 87.440 and Contraception management Z30.9 [facility] [address] [address] 02 Aug, 2015 History of UTI Z87.440 and I rregular menses N92.6 [place] [address] [address] 18 Jul, 2015 Leukopenia D72.819 and Neutr openia D70.9 [place] [address] [address] 18 Jul, 2015 Leukopenia D72.819 and Neutr openia D70.9 [place] [address] [address] 17 Jul, 2015 Migraine headache G43.909 ; Heart burn R12 and History of long-term use of multiple prescription drugs Z92.29 [facility] [address] [address] 15 Jul, 2015 Vaginal discharge N89.8 ; Hi gh risk sexual behavior Z72.51 ; Unprotected sex Z72.51 ; Acute upper respiratory infection, unspecified J06.9 and Other viral agents as the cause of diseases classified elsewhere B97.89 [place] [address] [address] 04 Jul, 2015 Sore throat J02.9 ; Sinusiti s J32.9 and Fever R50.9 [place] [address] [address] Jun, Migraine headache G43.909 an d Heart burn R12 [place] [address] [address] Jun, [place] [address] [address] Jun, [address] [address] 06 Jun, 2015 Evaluation regarding contrac eption options Z30.09 ; Encounter for Depo-Provera contraception Z30.42 ; 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 269A [facility] WALK IN [address] [address] May, Sore throat J02.[address] [address] 24 Feb, 2015 Pelvic pain in female 625.9 and Menorrhagia 626.[address] [address] 16 Dec, 2014 Diarrhea [address] [address] Dec, Pelvic pain in female 625.9 and Ganglion cyst of wrist 727.[address] [address] 16 Nov, 2014 Eczema 692.[address] [address] 12 Nov, [address] [address] 14 Sep, [address] [address] Sep, [facility] [address] [id number] [address] [place] [address], [place] [address] Jul, [facility] [address] [id number] [address] [place] [address], [place] [address] Jul, [facility] [address] [id number] [address] [place] [address], [place] [address] Jun, [facility] [address] [id number] [address] [place] [address], [place] [address] Jun, [facility] [address] [id number] [address] [place] [address], [place] [address] Jun, [facility] [address] [id number] [address] [place] [address], [place] [address] Jun, [facility] [address] [id number] [address] [place] [address], [place] [address] Jun, [facility] [address] [id number] [address] [place] [address], [place] [address] Jun, [facility] [address] [id number] [address] [place] [address], [place] [address] Jun, [facility] [address] [id number] [address] [place] [address], [place] [address] Jun, [facility] [address] [id number] [address] [place] [address], [place] [address] May, [facility] [address] [id number] [address] [place] [address] May, [facility] [address] [id number] [address] [place] [address], [place] [address] May, [facility] [address] [id number] [address] [place] [address], [place] [address] May, [facility] [address] [id number] [address] [place] [address], [place] [address] Apr, [facility] [address] [id number] [address] [place] [address], [place] [address] Apr, [facility] [address] [id number] [address] [place] [address], [place] [address] Apr, [facility] [address] [id number] [address] [place] [address], [place] [address] Apr, [facility] [address] [id number] [address] [place] [address], [place] [address] Apr, [facility] [address] [id number] [address] [place] [address], [place] [address] Apr, [facility] [address] [id number] [address] [place] [address], [place] [address] 29 Feb, 2014 [facility] [address] [id number] [address] [place] [address], [place] [address] 29 Feb, 2013 [facility] [address] [id number] [address] [place] [address], [place] [address] Feb, 2013 [facility] [address] [id number] [address] [place] [address], [place] [address] Feb, 2013 [facility] [address] [id number] [address] [place] [address], [place] [address] Feb, 2013 [facility] [address] [id number] [address] [place] [address], [place] [address] 26 Feb, 2013 [facility] [address] [id number] [address] [place] [address], [place] [address] 25 Feb, 2013 [facility] [address] [id number] [address] [place] [address], [place] [address] 25 Feb, 2013 [facility] [address] [id number] [address] [place] [address], [place] [address] 23 Feb, 2013 [facility] [address] [id number] [address] [place] [address], [place] [address] 23 Feb, 2013 [facility] [address] [id number] [address] [place] [address], [place] [address] Feb, 2013 [facility] [address] [id number] [facility] [place] [address] 22 Feb, 2013 [facility] [address] [id number] [address] [place] [address], [place] [address] Feb, 2013 [facility] [address] [id number] [address] [place] [address], [place] [address] Feb, 2013 [facility] [address] [id number] [address] [place] [address], [place] [address] 12 Feb, 2013 [facility] [address] [id number] [address] [place] [address], [place] [address] 10 Feb, 2013 [facility] [address] [id number] [address] [place] [address], [place] [address] Feb, 2013 [facility] [address] [id number] [address] [place] [address], [place] [address] Feb, 2013 [facility] [address] [id number] [address] [place] [address], [place] [address] Feb, 2013 [facility] [address] [id number] [address] [place] [address], [place] [address] Feb, [facility] [address] [id number] [address] [place] [address], [place] [address] Jan, [facility] [address] [id number] [address] [place] [address], [place] [address] Jan, [facility] [address] [id number] [address] [place] [address], [place] [address] Jan, [facility] [address] [id number] [address] [place] [address], [place] [address] Jan, [facility] [address] [id number] [address] [place] [address], [place] [address] Jan, [facility] [address] [id number] [address] [place] [address], [place] [address] Jan, [facility] [address] [id number] [address] [place] [address], [place] [address] Jan, [facility] [address] [id number] [address] [place] [address], [place] [address] Jan, [facility] [address] [id number] [address] [place] [address], [place] [address] Dec, [facility] [address] [id number] [address] [place] [address], [place] [address] Dec, [facility] [address] [id number] [address] [place] [address], [place] [address] Dec, [facility] [address] [id number] [address] [place] [address], [place] [address] Dec, [facility] [address] [id number] [address] [place] [address], [place] [address] Dec, [facility] [address] [id number] [address] [place] [address], [place] [address] Dec, [facility] [address] [id number] [address] [place] [address], [place] [address] Dec, [facility] [address] [id number] [address] [place] [address], [place] [address] Dec, [facility] [address] [id number] [address] [place] [address], [place] [address] Dec, [facility] [address] [id number] [address] [place] [address], [place] [address] Dec, [facility] [address] [id number] [address] [place] [address], [place] [address] Dec, [facility] [address] [id number] [address] [place] [address], [place] [address] Dec, [facility] [address] [id number] [address] [place] [address], [place] [address] Nov, [facility] [address] [id number] [address] [place] [address], [place] [address] Nov, [facility] [address] [id number] [facility] [place] [address] Nov, [facility] [address] [id number] [address] [place] [address], [place] [address] Nov, [facility] [address] [id number] [address] [place] [address], [place] [address] Nov, [facility] [address] [id number] [address] [place] [address], [place] [address] Nov, [facility] [address] [id number] [address] [place] [address], [place] [address] Nov, [facility] [address] [id number] [address] [place] [address], [place] [address] Nov, [facility] [address] [id number] [address] [place] [address], [place] [address] Nov, [facility] [address] [id number] [address] [place] [address], [place] [address] Nov, [facility] [address] [id number] [address] [place] [address], [place] [address] October, [facility] [address] [id number] [address] [place] [address], [place] [address] October, [facility] [address] [id number] [address] [place] [address], [place] [address] October, [facility] [address] [id number] [address] [place] [address], [place] [address] October, [facility] [address] [id number] [address] [place] [address], [place] [address] October, [facility] [address] [id number] [address] [place] [address], [place] [address] October, [facility] [address] [id number] [address] [place] [address], [place] [address] Sep, [facility] [address] [id number] [address] [place] [address], [place] [address] Sep, [facility] [address] [id number] [address] [place] [address], [place] [address] Sep, [facility] [address] [id number] [address] [place] [address], [place] [address] Sep, [facility] [address] [id number] [address] [place] [address], [place] [address] Sep, [facility] [address] [id number] [address] [place] [address], [place] [address] Sep, [facility] [address] [id number] [address] [place] [address], [place] [address] Aug, [facility] [address] [id number] [address] [place] [address], [place] [address] Aug, [facility] [address] [id number] [address] [place] [address], [place] [address] Aug, [facility] [address] [id number] [address] [place] [address], [place] [address] Aug, [facility] [address] [id number] [address] [place] [address], [place] [address] Aug, [facility] [address] [id number] [address] [place] [address], [place] [address] Jun, [facility] [address] [id number] [address] [place] [address], [place] [address] Jun, [facility] [address] [id number] [address] [place] [address], [place] [address] Jun, [facility] [address] [id number] [address] [place] [address], [place] [address] Jun, [facility] [address] [id number] [address] [place] [address], [place] [address] Jun, [facility] [address] [id number] [address] [place] [address], [place] [address] Jun, [facility] [address] [id number] [address] [place] [id number] Jun, [facility] [address] [facility] [id number] [address] [place] [id number] Mar, [facility] [address] [facility] [id number] [address] [place] [id number] Mar, IMMUNIZATIONS No Known Immunizations SOCIAL HISTORY [...]
--- OUTSIDE RECORDS SUMMARY | 2019-08-12 20:20 | XMS REPORT | Continuity of Care Document ---
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 NE GATIVE NEGATIVE Erythrocytes detection in urine sediment by light micr oscopy 5+ NEGATIVE Urine ketones detection by automated test strip NE GATIVE NEGATIVE Urine nitrite detection by test strip NEGATIVE NEGATIVE Urine total bilirubin detection by test strip NEGA TIVE NEGATIVE Urine urobilinogen measurement by automated test strip (mass/volume) NORMAL NORMAL Urine leukocyte esterase detection by dipstick 3+ NEGATIVE Automated urine sediment erythrocyte cou nt by microscopy (number/high power field) NONE NRG Automated urine sediment leukocyte count by microscopy (number/high power field) [HPF] NRG Bacteria detection in urine sediment by light microsco py FEW NRG Squamous epithelial cells detection in u rine sediment by light microscopy >50 NRG Crystals detection in urine sediment by light microsco py PRESENT NRG Casts detection in urine sediment by light microscopy NONE NRG Mucus detection in urine sediment by light microscopy NEGATIVE NRG Complete urinalysis with reflex to culture YES NRG Amorphous sediment detection in urine sediment by ligh t microscopy LARGE JESSY PHOSPHATE NRG Bacterial urine culture - 02/11/16 22:45 URINE CULTURE RESULTS 10,000/ML - 100,000/ML NRG Complete urinalysis with reflex to cultu re - 01/25/17 21:30 Urine color determination YELLOW NRG Urine clarity determination SLIGHTLY CLOUDY NRG Urine pH measurement by test strip 5 5-9 Specific gravity of urine by test strip 1.025 1.016-1.022 Urine protein assay by test strip, semi-quantitative 2+ NEGATIVE Urine glucose detection by automated test strip 1+ NEGATIVE Erythrocytes detection in urine sediment by light micr oscopy 1+ NEGATIVE Urine ketones detection by automated test strip 2+ NEGATIVE Urine nitrite detection by test strip NEGATIVE NEGATIVE Urine total bilirubin detection by test strip 1+ NEGATIVE Urine urobilinogen measurement by automated test strip (mass/volume) NORMAL NORMAL Urine leukocyte esterase detection by dipstick 2+ NEGATIVE Automated urine sediment erythrocyte cou nt by microscopy (number/high power field) [HPF] NRG Automated urine sediment leukocyte count by microscopy (number/high power field) [HPF] NRG Bacteria detection in urine sediment by light microsco py LARGE NRG Squamous epithelial cells detection in u rine sediment by light microscopy >50 NRG Crystals detection in urine sediment by light microsco py NONE NRG Casts detection in urine sediment by light microscopy NONE NRG Mucus detection in urine sediment by light microscopy LARGE NRG Complete urinalysis with reflex to culture YES NRG Bacterial urine culture - 01/25/17 21:30 Bacterial urine culture [id number] NRG COLONY COUNT >100,000/ML NRG FTX;REPORTABLE PLUS, NRG FREE TEXT ENTRY 2 MIXED CARLOS ALBERTO <10,000/ML NRG Bacterial susceptibility panel - 7 21:30 Gentamicin susceptibility test by minimum inhibitory c oncentration 4 NRG Trimethoprim/sulfamethoxazole susceptibi lity test by minimum inhibitoryconcentration <= NRG Tobramycin susceptibility test by minimum inhibitory c oncentration 4 NRG Ceftriaxone susceptibility test by minimum inhibitory concentration <= NRG Piperacillin/tazobactam susceptibility t est by minimum inhibitory concentration <= NRG Ciprofloxacin susceptibility test by minimum inhibitor y concentration 1 NRG Meropenem susceptibility test by minimum inhibitory co ncentration <= NRG Nitrofurantoin susceptibility test by mi nimum inhibitory concentration 128 NRG Aztreonam susceptibility test by minimum inhibitory co ncentration >= NRG Complete urinalysis with reflex to cultu re - 02/07/17 00:50 Urine color determination YELLOW NRG Urine clarity determination VERY CLOUDY NRG Urine pH measurement by test strip 6 5-9 Specific gravity of urine by test strip 1.025 1.016-1.022 Urine protein assay by test strip, semi-quantitative 2+ NEGATIVE Urine glucose detection by automated test strip 4+ NEGATIVE Erythrocytes detection in urine sediment by light micr oscopy 1+ NEGATIVE Urine ketones detection by automated test strip 2+ NEGATIVE Urine nitrite detection by test strip NEGATIVE NEGATIVE Urine total bilirubin detection by test strip NEGA TIVE NEGATIVE Urine urobilinogen measurement by automated test strip (mass/volume) NORMAL NORMAL Urine leukocyte esterase detection by dipstick 1+ NEGATIVE Automated urine sediment erythrocyte cou nt by microscopy (number/high power field) RARE NRG Automated urine sediment leukocyte count by microscopy (number/high power field) [HPF] NRG Bacteria detection in urine sediment by light microsco py MODERATE NRG Squamous epithelial cells detection in u rine sediment by light microscopy >50 NRG Crystals detection in urine sediment by light microsco py NONE NRG Casts detection in urine sediment by light microscopy NONE NRG Mucus detection in urine sediment by light microscopy SMALL NRG Complete urinalysis with reflex to culture YES NRG Bacterial urine culture - 02/07/17 00:50 Bacterial urine culture [id number] NRG COLONY COUNT >100,000/ML NRG FTX;REPORTABLE PLUS, NRG FREE TEXT ENTRY 2 MIXED GRAM POSITIVES <10,000/ML NRG Bacterial susceptibility panel - 7 00:50 Gentamicin susceptibility test by minimum inhibitory c oncentration <= NRG Trimethoprim/sulfamethoxazole susceptibi lity test by minimum inhibitoryconcentration <= NRG Ampicillin susceptibility test by minimum inhibitory c oncentration >= NRG Tobramycin susceptibility test by minimum inhibitory c oncentration <= NRG Cefazolin susceptibility test by minimum inhibitory co ncentration <= NRG Ceftriaxone susceptibility test by minimum inhibitory concentration <= NRG Ampicillin/sulbactam susceptibility test by minimum inhibitory concentration 4 NRG Piperacillin/tazobactam susceptibility t est by minimum inhibitory concentration <= NRG Ciprofloxacin susceptibility test by minimum inhibitor y concentration <= NRG Meropenem susceptibility test by minimum inhibitory co ncentration <= NRG Nitrofurantoin susceptibility test by mi nimum inhibitory concentration 32 NRG Aztreonam susceptibility test by minimum inhibitory co ncentration <= NRG Extended spectrum beta lactamase (ESBL) producing bacteria susceptibility test by minimum inhibitory concentration - NRG Complete blood count (CBC) with automate d white blood cell (WBC) differential - 02/10/17 07:25 Blood leukocytes automated count (number/volume) 8.7 10*3/uL 4.3-11.0 Blood erythrocytes automated count (number/volume) 4.04 10*6/uL 4.35-5.85 Venous blood hemoglobin measurement (mass/volume) 12.1 g/dL 11.5-16.0 Blood hematocrit (volume fraction) 36 % 35-52 Automated erythrocyte mean corpuscular volume 88 [ foz_us] 80-99 Automated erythrocyte mean corpuscular h emoglobin (mass per erythrocyte) 30 pg 25-34 Automated erythrocyte mean corpuscular h emoglobin concentration measurement (mass/volume) 34 g/dL 32-36 Automated erythrocyte distribution width ratio 14. 9 % 10.0- 14.5 Automated blood platelet count [...] 10*3 1.0-4.0 Blood monocytes automated count (number/volume) 0. 6 10*3 0.0-1.0 Automated eosinophil count 0.1 10*3/uL 0 .0-0.3 Automated blood basophil count (count/volume) 0.0 10*3/uL 0.0-0.1 Blood type T Indirect antibody screen pa brennen - 02/10/17 07:25 ABO+Rh group AP NRG Transfusion band number [id number] NR Blood group antibody screen NEGATIVE NR G Complete blood count (CBC) with automate d white blood cell (WBC) differential - 02/11/17 06:05 Blood leukocytes automated count (number/volume) 9.3 10*3/uL 4.3-11.0 Blood erythrocytes automated count (number/volume) 3.80 10*6/uL 4.35-5.85 Venous blood hemoglobin measurement (mass/volume) 11.3 g/dL 11.5-16.0 Blood hematocrit (volume fraction) 34 % 35-52 Automated erythrocyte mean corpuscular volume 89 [ foz_us] 80-99 Automated erythrocyte mean corpuscular h emoglobin (mass per erythrocyte) 30 pg 25-34 Automated erythrocyte mean corpuscular h emoglobin concentration measurement (mass/volume) 33 g/dL 32-36 Automated erythrocyte distribution width ratio 14. 8 % 10.0- 14.5 Automated blood platelet count [...] 10*3 1.0-4.0 Blood monocytes automated count (number/volume) 0. 7 10*3 0.0-1.0 Automated eosinophil count 0.1 10*3/uL 0 .0-0.3 Automated blood basophil count (count/volume) 0.0 10*3/uL 0.0-0.1 Urine beta human chorionic gonadotropin (hCG) measurement - 03/09/18 10:00 Urine beta human chorionic gonadotropin (hCG) measurem ent NEGATIVE NEGATIVE Urine beta human chorionic gonadotropin (hCG) measurement - 04/01/18 09:55 Urine beta human chorionic gonadotropin (hCG) measurem ent NEGATIVE NEGATIVE Methicillin resistant Staphylococcus aur eus (MRSA) screening culture - 04/01/18 10:15 Methicillin resistant Staphylococcus aureus (MRSA) scr eening culture NEG NRG Complete urinalysis with reflex to cultu re - 05/09/18 07:05 Urine color determination YELLOW NRG Urine clarity determination VERY CLOUDY NRG Urine pH measurement by test strip 5 5-9 Specific gravity of urine by test strip 1.020 1.016-1.022 Urine protein assay by test strip, semi-quantitative 3+ NEGATIVE Urine glucose detection by automated test strip NE GATIVE NEGATIVE Erythrocytes detection in urine sediment by light micr oscopy 5+ NEGATIVE Urine ketones detection by automated test strip NE GATIVE NEGATIVE Urine nitrite detection by test strip NEGATIVE NEGATIVE Urine total bilirubin detection by test strip NEGA TIVE NEGATIVE Urine urobilinogen measurement by automated test strip (mass/volume) NORMAL NORMAL Urine leukocyte esterase detection by dipstick 3+ NEGATIVE Automated urine sediment erythrocyte cou nt by microscopy (number/high power field) [facility] Automated urine sediment leukocyte count by microscopy (number/high power field) TNTC NRG Bacteria detection in urine sediment by light microsco py MODERATE NRG Squamous epithelial cells detection in u rine sediment by light microscopy RARE NRG Crystals detection in urine sediment by light microsco py NONE NRG Casts detection in urine sediment by light microscopy NONE NRG Mucus detection in urine sediment by light microscopy NEGATIVE NRG Complete urinalysis with reflex to culture YES NRG Yeast detection in urine sediment by light microscopy MODERATE NRG Urine beta human chorionic gonadotropin (hCG) measurement - 05/09/18 07:05 Urine beta human chorionic gonadotropin (hCG) measurem ent NEGATIVE NEGATIVE Bacterial urine culture - 05/09/18 07:05 Bacterial urine culture SEE REPORT NRG COLONY COUNT . NRG TSH - 09/08/18 11:40 TSH 1.59 mIU/L NRG Fibrin D-dimer FEU measurement in platel et poor plasma (mass/volume) - 01/07/19 20:40 Fibrin D-dimer FEU measurement in platelet poor plasma (mass/volume) 0.47 ug/mL 0.00-0.49 Automated blood complete blood count (he mogram) panel - 01/07/19 20:40 Blood leukocytes automated count (number/volume) 6.8 10*3/uL 4.3-11.0 Blood erythrocytes automated count (number/volume) 4.43 10*6/uL 4.35-5.85 Venous blood hemoglobin measurement (mass/volume) 13.2 g/dL 11.5-16.0 Blood hematocrit (volume fraction) 39 % 35-52 Automated erythrocyte mean corpuscular volume 89 [ foz_us] 80-99 Automated erythrocyte mean corpuscular h emoglobin (mass per erythrocyte) 30 pg 25-34 Automated erythrocyte mean corpuscular h emoglobin concentration measurement (mass/volume) 34 g/dL 32-36 Automated erythrocyte distribution width ratio 13. 7 % 10.0- 14.5 Automated blood platelet count (count/volume) 252 10*3/uL 130-400 Automated blood platelet mean volume measurement 10.1 [foz_us] 7.4-10.4 Serum or plasma troponin i.cardiac measu rement (mass/volume) - 01/07/19 20:40 Serum or plasma troponin i.cardiac measurement (mass/v olume) < ng/mL <0.028 Urine beta human chorionic gonadotropin (hCG) measurement - 01/07/19 20:45 Urine beta human chorionic gonadotropin (hCG) measurem ent NEGATIVE NEGATIVE TSH - 02/22/19 08:57 TSH 3.53 mIU/L NRG Streptococcus pyogenes antigen detection - 08/02/19 22:00 Streptococcus pyogenes antigen detection NEGATIVE NEGATIVE Influenza virus A and B antigen detectio n - 08/02/19 22:00 FLU RESULT NEGATIVE FOR INFLUENZA A AND B ANTIGENS BY IA NRG Bacterial throat culture - 08/02/19 22:0 0 Bacterial throat culture NBS NRG Influenza virus A and B antigen detectio n - 08/04/19 15:03 CALL POSITIVES (F1 HELP) TANIA NRG FLU RESULT POSITIVE FOR INFLUENZA B ANT IGEN, NEG FOR A ANTIGEN, BY IA NRG Complete blood count (CBC) with automate d white blood cell (WBC) differential - 08/04/19 15:10 Blood leukocytes automated count (number/volume) 5.1 10*3/uL 4.3-11.0 Blood erythrocytes automated count (number/volume) 4.40 10*6/uL 4.35-5.85 Venous blood hemoglobin measurement (mass/volume) 13.2 g/dL 11.5-16.0 Blood hematocrit (volume fraction) 39 % 35-52 Automated erythrocyte mean corpuscular volume 88 [ foz_us] 80-99 Automated erythrocyte mean corpuscular h emoglobin (mass per erythrocyte) 30 pg 25-34 Automated erythrocyte mean corpuscular h emoglobin concentration measurement (mass/volume) 34 g/dL 32-36 Automated erythrocyte distribution width ratio 14. 2 % 10.0- 14.5 Automated blood platelet count (count/volume) 166 10*3/uL 130-400 Automated blood platelet mean volume measurement 10.2 [foz_us] 7.4-10.4 Automated blood neutrophils/100 leukocytes 70 % 42-75 Automated blood lymphocytes/100 leukocytes 23 % 12-44 Blood monocytes/100 leukocytes 7 % 0-12 Automated blood eosinophils/100 leukocytes 0 % 0-10 Automated blood basophils/100 leukocytes 0 % 0-10 Blood neutrophils automated count (number/volume) 3.5 10*3 1.8-7.8 Blood lymphocytes automated count (number/volume) 1.2 10*3 1.0-4.0 Blood monocytes automated count (number/volume) 0. 4 10*3 0.0-1.0 Automated eosinophil count 0.0 10*3/uL 0 .0-0.3 Automated blood basophil count (count/volume) 0.0 10*3/uL 0.0-0.1 Serum or plasma choriogonadotropin (preg gabriella test) detection - 08/04/19 15:10 Serum or plasma choriogonadotropin ( test) de tection NEGATIVE NEGATIVE Comprehensive metabolic panel - 08/04/19 15:10 Serum or plasma sodium measurement (moles/volume) 134 mmol/L 135-145 Serum or plasma potassium measurement (moles/volume) 4.2 mmol/L 3.6-5.0 Serum or plasma chloride measurement (moles/volume) 101 mmol/L 98-107 Carbon dioxide 20 mmol/L 21-32 Serum or plasma anion gap determination (moles/volume) 13 mmol/L 5-14 Serum or plasma urea nitrogen measurement (mass/volume ) 6 mg/dL 7-18 Serum or plasma creatinine measurement (mass/volume) 0.70 mg/dL 0.60-1.30 Serum or plasma urea nitrogen/creatinine mass ratio 9 NRG Serum or plasma creatinine measurement w ith calculation of estimated glomerular filtration rate > NRG Serum or plasma glucose measurement (mass/volume) 201 mg/dL 70-105 Serum or plasma calcium measurement (mass/volume) 9.0 mg/dL 8.5-10.1 Serum or plasma total bilirubin measurement (mass/volu me) 0.3 mg/dL 0.1-1.0 Serum or plasma alkaline phosphatase slava surement (enzymatic activity/volume) 58 U/L 40-136 Serum or plasma aspartate aminotransfera se measurement (enzymatic activity/volume) 103 U/L 5-34 Serum or plasma alanine aminotransferase measurement (enzymatic activity/volume) 39 U/L 0-55 Serum or plasma protein measurement (mass/volume) 8.1 g/dL 6.4-8.2 Serum or plasma albumin measurement (mass/volume) 4.4 g/dL 3.2-4.5 CALCIUM CORRECTED 8.7 mg/dL 8.5-10.1 Serum or plasma troponin i.cardiac measu rement (mass/volume) - 08/04/19 15:10 Serum or plasma troponin i.cardiac measurement (mass/v olume) < ng/mL <0.028 Serum or plasma lithium measurement (mol es/volume) - 08/04/19 15:10 BNP PT 11.9 pg/mL <100.0 Fibrin D-dimer FEU measurement in platel et poor plasma (mass/volume) - 08/04/19 15:30 Fibrin D-dimer FEU measurement in platelet poor plasma (mass/volume) 0.49 ug/mL 0.00-0.49 Encounters ACCT No. Visit Date/Time Discharge Status Pt. 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 L [id number] 04/26/2014 14:47:00 04/26/2014 23:59: 59 CLS Outpatient SLADEMIREILLE MONTESNSHANELSARAH A [id number] 03/17/2014 09:57:00 03/17/2014 23:59: 59 CLS Outpatient ESTEFANIA TORRES DO [id number] 03/13/2014 15:53:00 03/13/2014 23:59: 59 CLS Outpatient ESTEFANIA TORRES DO [id number] 02/22/2014 10:12:00 02/22/2014 23:59: 59 CLS Outpatient MELISSA DOESTEFANIA [id number] 02/06/2014 13:49:00 02/06/2014 23:59: 59 CLS Outpatient ESTEFANIA TORRES DO [id number] 01/23/2014 15:13:00 01/23/2014 23:59: 59 CLS Outpatient ESTEFANIA TORRES DO [id number] 01/09/2014 16:34:00 01/09/2014 23:59: 59 CLS Outpatient ESTEFANIA TORRES DO [id number] 12/13/2013 14:10:00 12/13/2013 23:59: 59 CLS Outpatient ESTEFANIA TORRES DO [id number] 12/13/2013 14:10:00 12/13/2013 23:59: 59 CLS Outpatient ESTEFANIA TORRES DO [id number] 11/15/2013 13:57:00 11/15/2013 23:59: 59 CLS Outpatient ESTEFANIA TORRES DO [id number] 11/15/2013 13:57:00 11/15/2013 23:59: 59 CLS Outpatient ESTEFANIA TORRES DO [id number] 10/12/2013 14:55:00 10/12/2013 23:59: 59 CLS Outpatient SARAH JUNE APRN [id number] 10/12/2013 14:55:00 10/12/2013 23:59: 59 CLS Outpatient SLADE MONTESNSARAH A [id number] 09/15/2013 14:50:00 09/15/2013 23:59: 59 CLS Outpatient SARAH JUNE APRN Angelica [id number] 07/12/2013 08:51:00 07/12/2013 23:59: 59 CLS Outpatient SLADE MONTESNSARAH Angelica [id number] 04/09/2013 13:20:00 04/09/2013 23:59: 59 CLS Outpatient SADA POND APRN [id number] 08/09/2019 13:30:00 23:59:59 CLS Preadmit NALINI MCKEON DO [facility] ENDO BLOOD IN STOOL [id number] 08/05/2019 11:15:00 14:35:00 DIS Outpatient NALINI MCKEON DO [facility] PREOP COLONOSCOPY [id number] 08/04/2019 14:59:00 17:00:00 DIS Emergency LA[place] LANDA APRN [facility] ER SOA [id number] 08/02/2019 21:47:00 22:35:00 DIS Emergency LA[place] LANDA APRN [facility] ER SORE THROAT,ACHE [id number] 01/07/2019 20:19:00 21:57:00 DIS Emergency LA[place] LANDA APRN [facility] ER RASH [id number] 12/26/2018 19:06:00 019 19:56:00 DIS Outpatient AUDREY DE LOS SANTOS [facility] ER TOOTHACHE [id number] 12/26/2018 07:53:00 019 08:43:00 DIS Outpatient ISIDRO ESQUEDA DO, V [facility] ER DENTAL PAIN [id number] 05/09/2018 06:56:00 018 07:50:00 DIS Outpatient SHANNON JASSO MD [facility] ER UTI [id number] 04/01/2018 09:41:00 018 17:20:00 DIS Outpatient NALINI MCKEON DO [facility] SDC BILIARY DYSKINESIA [id number] 03/31/2018 06:09:00 018 10:49:00 DIS Outpatient NALINI MCKEON DO [facility] PREOP BILIARY DYSKINESIA [id number] 03/18/2018 09:46:00 018 23:59:59 CLS Outpatient NALINI MCKEON DO [facility] CARD CHEST PAIN,GERD [id number] 03/12/2018 07:07:00 018 23:59:59 CLS Outpatient NALINI MCKEON DO [facility] RAD CHEST PAIN,GERD [id number] 03/09/2018 08:56:00 018 11:30:00 DIS Outpatient NALINI MCKEON DO [facility] ENDO GERD [id number] 03/08/2018 09:15:00 018 09:19:00 DIS Outpatient NALINI MCKEON DO [facility] PREOP EGD [id number] 02/24/2018 10:24:00 018 23:59:59 CLS Outpatient BRENT LALA [facility] CARD R42 DIZZINE SS [id number] 10/05/2017 13:02:00 018 23:59:59 CLS Outpatient CRISTA ROSALES [facility] RAD R10.2 PELVIC PAIN [id number] 02/10/2017 06:57:00 017 11:30:00 DIS Inpatient KIARA MAO MD [facility] LDRP INDUCTION [id number] 02/09/2017 13:41:00 017 23:59:59 CLS Outpatient KIARA MAO MD [facility] RAD POSITION [id number] 02/07/2017 00:45:00 017 02:33:00 DIS Outpatient PEPE MEEK MD [facility] WSo CONTRACTIONS [id number] 01/25/2017 21:03:00 017 22:24:00 DIS Outpatient ANOOP HWANG MD [facility] WSo CONTRACTIONS [id number] 12/29/2016 09:49:00 017 23:59:59 CLS Outpatient KIARA MAO MD [facility] RAD FUNDAL HEIGHT INCREASE [id number] 12/07/2016 16:52:00 017 18:10:00 DIS Outpatient ANOOP HWANG MD [facility] WSo ABD PAIN/PRESSURE [id number] 10/09/2016 13:28:00 017 23:59:59 CLS Outpatient KIARA MAO MD [facility] RAD EVAL SPINE F/U [id number] 09/18/2016 13:31:00 017 23:59:59 CLS Outpatient KIARA MAO MD [facility] RAD SURVEY [id number] 07/17/2016 10:22:00 017 23:59:59 CLS Outpatient KIARA MAO MD [facility] RAD NORMAL IN [facility] [id number] 07/13/2016 23:34:00 017 00:22:00 DIS Emergency DHEERAJ DO, ISIDRO Ramírez [facility] ER FAICAL PAIN EAR ACHE [id number] 06/01/2016 19:44:00 20:02:00 DIS Emergency LA[place] LANDA APRN [facility] ER EAR ACHE [id number] 05/19/2016 10:30:00 23:59:59 CLS Preadmit CARISSA CARRERO MD [facility] CARD CHEST PAIN [id number] 02/18/2016 10:30:00 00:01:00 DIS Outpatient CARISSA CARRERO MD [facility] CARD CHEST PAIN [id number] 02/11/2016 22:18:00 23:41:00 DIS Emergency SHANNON JASSO MD [facility] ER DECREASE IN URI NATION [id number] 01/14/2016 13:37:00 14:23:00 DIS Emergency AUDREY DE LOS SANTOS [facility] ER COUGH/CONGESTION [id number] 11/28/2015 15:02:00 23:59:59 CLS Outpatient ERI SLOANDANICA [facility] RAD AMENORRHEA [id number] 10/16/2015 06:11:00 08:40:00 DIS Emergency SHANNON JASSO MD [facility] ER NUMB ON HEAD,SH AKES ALL OVER,KNEE PAIN [id number] 09/19/2015 06:53:00 09:35:00 DIS Emergency KYLE ARCE MD [facility] ER LOWER ABD PAIN [id number] 09/04/2015 20:40:00 21:08:00 DIS Emergency LA[place] LANDA APRN [facility] ER R HAND THUMB LAC [id number] 08/09/2015 11:58:00 14:32:00 DIS Emergency LA[place] LANDA APRN [facility] ER SORE THROAT [id number] 04/06/2015 11:54:00 23:59:59 CLS Outpatient 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 [facility] RAD PELVIC PAIN [id number] 03/12/2015 18:20:00 23:23:00 DIS Emergency AUDREY DE LOS SANTOS [facility] ER [id number] 02/08/2015 08:08:00 14:30:00 DIS Outpatient NALINI MCKEON DO [facility] SDC [id number] 02/01/2015 14:28:00 23:59:59 CLS Outpatient NALINI MCKEON DO D [facility] PREOP [id number] 07/19/2014 08:41:00 23:59:59 CLS Outpatient MADLCRISTA Audrey [employer]INTENA[employer] SUPERVISOR [facility] RAD [id number] 03/19/2014 00:35:00 014 17:10:00 DIS Inpatient ESTEFANIA TORRES DO, [facility] [id number] 03/01/2014 11:59:00 014 23:59:59 CLS Outpatient ESTEFANIA TORRES DO [facility] RAD [id number] 01/30/2018 17:20:00 Document Registration
== END 2019-08-02 22:35 | disposition home or self-care (01) ==
LOC: EDUNIT# 21:46 → ER 21:47
DX: J11.1 Influenza due to unidentified influenza virus with other respiratory manifestations (principal); Z87.891 Personal history of nicotine dependence
CPT/HCPCS: 87430; 87804

== ENCOUNTER 2019-08-04 14:58 | Emergency (ER) | payer MEDICAID ==
[~2019-08-04] VITALS: Ht 162 cm; Wt 126.1 kg
--- NOTE | 2019-08-04 15:04 | ED Dyspnea ---
General Chief Complaint: Respiratory Problems Stated Complaint: SOA Source of Information: Patient Exam Limitations: No Limitations History of Present Illness Date Seen by Provider: Aug 04, 2019 Time Seen by Provider: 15:02 Initial Comments To ER with cough and runny nose sore throat and body aches and shortness of breath. The cough is productive of yellow sputum. She was seen here couple of days ago for the same, negative strep and negative flu swab. Her symptoms however were consistent with influenza and she was treated as such. She comes back in today with the complaint of worsening shortness of breath. No fevers. Timing/Duration: Other (48-72 hours) Severity: Moderate Associated Symptoms: Cough Allergies and Home Medications Allergies Coded Allergies: No Known Drug Allergies (Unverified , 12/26/18) Patient Home Medication List Home Medication List Reviewed: Yes Review of Systems Review of Systems Constitutional: see HPI EENTM: see HPI, nose congestion, throat pain Respiratory: see HPI, short of breath Cardiovascular: no symptoms reported Genitourinary: no symptoms reported Musculoskeletal: no symptoms reported Skin: no symptoms reported Psychiatric/Neurological: No Symptoms Reported Endocrine: No Symptoms Reported Past Harxxrn-Mvpizh-Kjfeja Hx Patient Social History Type Used: Cigarettes Former Smoker, Quit: Mar 22, 2016 2nd Hand Smoke Exposure: No Recent Foreign Travel: No Contact w/Someone Who Travel: No Recent Hopitalizations: No Immunizations Up To Date Tetanus Booster (TDap): Unknown PED Vaccines UTD: Yes Seasonal Allergies Seasonal Allergies: No Past Medical History Surgeries: Yes (ganglion cyst on wrist ) Appendectomy, Gallbladder, Orthopedic Respiratory: No Cardiac: Yes High Cholesterol, Hypertension Neurological: Yes Headaches /Migraines Reproductive Disorders: No Female Reproductive Disorders: Menstrual Problems Genitourinary: No Gastrointestinal: Yes (lactose intolerance) Gastroesophageal Reflux, Hemorrhoids, Gall Bladder Disease, Irritable Bowel Musculoskeletal: No Endocrine: No HEENT: Yes (DENTAL CARIES) Cancer: No Psychosocial: Yes Depression Integumentary: No Recent Skin Changes Blood Disorders: No Adverse Reaction/Blood Tranf: No Family Medical History Patient reports no known family medical history. No Pertinent Family Hx Physical Exam Vital Signs Vital Signs - First Documented 08/04/19 15:00 Temp 36.6 Pulse 126 Resp 26 B/P (MAP) 137/111 (120) Pulse Ox 97 O2 Delivery Room Air Capillary Refill : Height, Weight, BMI Height: 5'4.00" Weight: 255lbs. 0oz. 115.665717hw; 44.00 BMI Method:Stated General Appearance: No Apparent Distress, WD/WN, Obese Neck: Full Range of Motion, Normal Inspection Respiratory: No Accessory Muscle Use, No Respiratory Distress Cardiovascular: Tachycardia Gastrointestinal: Non Tender, Soft Neurologic/Psychiatric: Alert, Oriented x3 Skin: Normal Color, Warm/Dry Progress/Results/Core Measures Results/Orders Lab Results Laboratory Tests Test 08/04/19 15:10 08/04/19 15:30 Range/Units White Blood Count 5.1 4.3-11.0 10^3/uL Red Blood Count 4.40 4.35-5.85 10^6/uL Hemoglobin 13.2 11.5-16.0 G/DL Hematocrit 39 35-52 % Mean Corpuscular Volume 88 80-99 FL Mean Corpuscular Hemoglobin 30 25-34 PG Mean Corpuscular Hemoglobin Concent 34 32-36 G/DL Red Cell Distribution Width 14.2 10.0-14.5 % Platelet Count 166 130-400 10^3/uL Mean Platelet Volume 10.2 7.4-10.4 FL Neutrophils (%) (Auto) 70 42-75 % Lymphocytes (%) (Auto) 23 12-44 % Monocytes (%) (Auto) 7 0-12 % Eosinophils (%) (Auto) 0 0-10 % Basophils (%) (Auto) 0 0-10 % Neutrophils # (Auto) 3.5 1.8-7.8 X 10^3 Lymphocytes # (Auto) 1.2 1.0-4.0 X 10^3 Monocytes # (Auto) 0.4 0.0-1.0 X 10^3 Eosinophils # (Auto) 0.0 0.0-0.3 10^3/uL Basophils # (Auto) 0.0 0.0-0.1 10^3/uL Sodium Level 134 L 135-145 MMOL/L Potassium Level 4.2 3.6-5.0 MMOL/L Chloride Level 101 98-107 MMOL/L Carbon Dioxide Level 20 L 21-32 MMOL/L Anion Gap 13 5-14 MMOL/L Blood Urea Nitrogen 6 L 7-18 MG/DL Creatinine 0.70 0.60-1.30 MG/DL Estimat Glomerular Filtration Rate > 60 BUN/Creatinine Ratio 9 Glucose Level 201 H 70-105 MG/DL Calcium Level 9.0 8.5-10.1 MG/DL Corrected Calcium 8.7 8.5-10.1 MG/DL Total Bilirubin 0.3 0.1-1.0 MG/DL Aspartate Amino Transf (AST/SGOT) 103 H 5-34 U/L Alanine Aminotransferase (ALT/SGPT) 39 0-55 U/L Alkaline Phosphatase 58 40-136 U/L Troponin I < 0.028 <0.028 NG/ML B-Type Natriuretic Peptide 11.9 <100.0 PG/ML Total Protein 8.1 6.4-8.2 GM/DL Albumin 4.4 3.2-4.5 GM/DL Serum Test, Qualitative NEGATIVE NEGATIVE D-Dimer 0.49 0.00-0.49 UG/ML My Orders Orders - LA[facility] LANDA APRN Cbc With Automated Diff (08/04/19 15:00) Comprehensive Metabolic Panel (08/04/19 15:00) Fibrin Degradation Products (08/04/19 15:00) Troponin I (08/04/19 15:00) BNP (08/04/19 15:00) Ekg Tracing (08/04/19 15:00) Hcg,Qualitative Serum (08/04/19 15:00) Chest Pa/Lat (2 View) (08/04/19 15:00) Influenza A And B Antigens (08/04/19 16:06) Vital Signs/I&O 08/04/19 15:00 Temp 36.6 Pulse 126 Resp 26 B/P (MAP) 137/111 (120) Pulse Ox 97 O2 Delivery Room Air Departure Impression Primary Impression: Influenza B Disposition: HOME, SELF-CARE Condition: Stable (a) Departure-Patient Inst. Decision time for Depature: 16:23 Referrals: KIARA MAO MD (PCP/Family) Primary Care Physician Patient Instructions: Flu, Adult (DC) Add. Discharge Instructions: Tylenol and Motrin. Drink plenty of fluids. Follow-up with your doctor next week. All discharge instructions reviewed with patient and/or family. Voiced understanding. Work/School Note: Work Release Form Date Seen in the Emergency Department: Aug 04, 2019 Return to Work: Aug 08, 2019 LAKE LANDA APRN Aug 04, 2019 15:04
[2019-08-04 15:18] LABS: BASOPHILS % (AUTO) 0 % (0-10); EOSINOPHILS % (AUTO) 0 % (0-10); HEMATOCRIT 39 % (35-52); HEMOGLOBIN 13.2 G/DL (11.5-16.0); LYMPHOCYTES # (AUTO) 1.2 X 10^3 (1.0-4.0); LYMPHOCYTES % (AUTO) 23 % (12-44); MEAN CORPUSCULAR HEMOGLOBIN 30 PG (25-34); MEAN CORPUSCULAR HGB CONC 34 G/DL (32-36); MEAN CORPUSCULAR VOLUME 88 FL (80-99); MEAN PLATELET VOLUME 10.2 FL (7.4-10.4); MONOCYTES # (AUTO) 0.4 X 10^3 (0.0-1.0); MONOCYTES % (AUTO) 7 % (0-12); NEUTROPHILS # (AUTO) 3.5 X 10^3 (1.8-7.8); NEUTROPHILS % (AUTO) 70 % (42-75); PLATELET COUNT 166 10^3/uL (130-400); RED CELL DISTRIBUTION WIDTH 14.2 % (10.0-14.5); WHITE BLOOD COUNT 5.1 10^3/uL (4.3-11.0)
[2019-08-04 15:42] LABS: ALANINE AMINOTRANSFERASE 39 U/L (0-55); ALBUMIN 4.4 GM/DL (3.2-4.5); ALKALINE PHOSPHATASE 58 U/L (40-136); BILIRUBIN,TOTAL 0.3 MG/DL (0.1-1.0); BUN/CREATININE RATIO 9; CARBON DIOXIDE 20 MMOL/L (21-32); CHLORIDE 101 MMOL/L (98-107); GFR ESTIMATED > 60; GLUCOSE 201 MG/DL (70-105); POTASSIUM 4.2 MMOL/L (3.6-5.0); SODIUM 134 MMOL/L (135-145); TOTAL PROTEIN 8.1 GM/DL (6.4-8.2)
--- NOTE | 2019-08-04 16:03 | Diagnostic Imaging Report ---
CLINICAL INDICATION: Patient with shortness of breath this morning. EXAM: Chest x-ray, PA and lateral views. COMPARISONS: Portable chest x-ray dated 01/07/2019. FINDINGS: Azygos lobe is noted. Lungs/pleura: Stable mild elevation of the right hemidiaphragm. Lungs are clear. There is no pneumothorax. There is no pleural effusion. Mediastinum: Unremarkable. Pulmonary vasculature: Unremarkable. Heart: Unremarkable. Bones/extrathoracic soft tissue: Unremarkable. IMPRESSION: Stable chest x-ray exam with no interval radiographic evidence of acute cardiopulmonary process. Dictated by: Dictated on workstation # [id number]
[2019-08-04 17:00] VITALS: BP 129/76
== END 2019-08-04 17:00 | disposition home or self-care (01) ==
LOC: EDUNIT# 14:58 → ER 14:59
DX: J10.1 Influenza due to other identified influenza virus with other respiratory manifestations (principal); Z87.891 Personal history of nicotine dependence
CPT/HCPCS: 36415; 71046; 80053; 83880; 84484; 84703; 85025; 85379; 87804

== ENCOUNTER 2019-08-05 11:15 | Outpatient (CLI) | payer MEDICAID ==
[~2019-08-05] VITALS: Ht 162 cm; Wt 118.0 kg
== END 2019-08-08 14:35 | disposition home or self-care (01) ==
LOC: PREOP 11:15
PROVIDERS: ATTEND Surgery
DX: Z01.818 Encounter for other preprocedural examination (principal)

== ENCOUNTER 2020-02-28 23:01 | Emergency (ER) | payer MEDICAID ==
[~2020-02-28] VITALS: Ht 162 cm; Wt 122.0 kg
[~2020-02-28 23:01] MED LIST changes: -LIDO15SO2 MM; +LIDO20SO23 MM
[2020-02-28 23:04] VITALS: BP 134/85
[2020-02-28] MEDS ORDERED: SULF1TAB35 PO (23:19)
--- NOTE | 2020-02-28 23:19 | ED Lower Extremity ---
General Chief Complaint: Lower Extremity Stated Complaint: L FOOT, TOE SWELLING/PAIN Nursing Triage Note: c/o left 4th toe swelling x4hrs, pain with ambulation. denies injury. Nursing Sepsis Screen: No Definite Risk Source: patient Exam Limitations: no limitations History of Present Illness Date Seen by Provider: Feb 28, 2020 Time Seen by Provider: 23:18 Initial Comments This 29-year-old young lady presents to the emergency room with pain and swelling in the distal left fourth toe. She states it throbs when she stands up and walks. She denies any injury or break in the skin. She has no history of gout or other joint problems. Allergies and Home Medications Allergies Coded Allergies: No Known Drug Allergies (Unverified , 08/05/19) Home Medications Docusate Sodium 100 Mg Capsule, 100 MG PO BID Prescribed by: NALINI MCKEON on 08/30/19 0827 Sulfamethoxazole/Trimethoprim 1 Each Tablet, 1 EACH PO BID Prescribed by: KYLE MON on 02/28/20 3490 Patient Home Medication List Home Medication List Reviewed: Yes Review of Systems Constitutional: no symptoms reported EENTM: no symptoms reported Respiratory: no symptoms reported Cardiovascular: no symptoms reported Gastrointestinal: no symptoms reported Genitourinary: no symptoms reported : No Musculoskeletal: see HPI Skin: see HPI Psychiatric/Neurological: No Symptoms Reported Past Nxvdejr-Tflmjo-Cicnee Hx Past Med/Social Hx: Reviewed Nursing Past Med/Soc Hx Patient Social History Alcohol Use: Denies Use Recreational Drug Use: No Smoking Status: Former Smoker Type Used: Cigarettes Former Smoker, Quit: Mar 22, 2016 2nd Hand Smoke Exposure: No Recent Foreign Travel: No (N) Contact w/Someone Who Travel: No Recent Infectious Disease Expo: No Recent Hopitalizations: No Immunizations Up To Date Tetanus Booster (TDap): Unknown PED Vaccines UTD: Yes Seasonal Allergies Seasonal Allergies: No Past Medical History Surgeries: Yes (ganglion cyst on wrist ) Appendectomy, Gallbladder, Orthopedic Respiratory: No Cardiac: Yes High Cholesterol, Hypertension Neurological: Yes Headaches /Migraines : No Reproductive Disorders: No Female Reproductive Disorders: Menstrual Problems Genitourinary: No Gastrointestinal: Yes Gastroesophageal Reflux, Hemorrhoids, Gall Bladder Disease, Irritable Bowel Musculoskeletal: No Endocrine: No HEENT: No Cancer: No Psychosocial: Yes Depression Integumentary: No Recent Skin Changes Blood Disorders: No Adverse Reaction/Blood Tranf: No Family Medical History Patient reports no known family medical history. No Pertinent Family Hx Physical Exam Vital Signs Vital Signs - First Documented 02/28/20 23:04 Temp 37.0 Pulse 89 Resp 16 B/P (MAP) 134/85 (101) Pulse Ox 98 O2 Delivery Room Air Capillary Refill : Less Than 3 Seconds Height, Weight, BMI Height: 5'4.00" Weight: 255lbs. 0oz. 115.276273at; 46.00 BMI Method:Stated General Appearance: WD/WN, no apparent distress HEENT: normal ENT inspection Cardiovascular: regular rate, rhythm, no edema, no murmur Respiratory: lungs clear, normal breath sounds, no respiratory distress Feet: left foot other (minor tenderness and swelling in the distal fourth left toe. Capillary refill normal. No obvious break in the skin. In general feet are soiled and callused.) Neurologic/Psychiatric: no motor/sensory deficits, alert, normal mood/affect, oriented x 3 Skin: normal color, warm/dry, other (callused soiled feet) Progress/Results/Core Measures Results/Orders My Orders Orders - KYLE ARCE MD Sulfamethoxazole/Trimet Ds Tab (Bactrim (02/28/20 23:30) Medications Given in ED Current Medications Medications Dose Ordered Sig/Jessica Route Start Time Stop Time Status Last Admin Dose Admin Trimethoprim/ Sulfamethoxazole 1 ea ONCE ONCE PO 02/28/20 23:30 02/28/20 23:23 DC 02/28/20 23:23 1 EA Vital Signs/I&O 02/28/20 23:04 Temp 37.0 Pulse 89 Resp 16 B/P (MAP) 134/85 (101) Pulse Ox 98 O2 Delivery Room Air Blood Pressure Mean: 101 Progress Progress Note : Progress Note The pain and swelling in the distal toe may represent early cellulitis. Patient was treated with Bactrim and a prescription was provided. Departure Impression Primary Impression: Cellulitis of toe of left foot Disposition: HOME, SELF-CARE Condition: Improved Departure-Patient Inst. Decision time for Depature: 23:17 Referrals: KIARA MAO MD (PCP/Family) Primary Care Physician Patient Instructions: Cellulitis (Skin Infection), Adult (DC) Add. Discharge Instructions: Elevate your foot to the level of your heart is much as possible until the swelling is gone. Complete the course of antibiotics as prescribed. If you're not improving after couple of days, contact your primary care provider. If you have worsening symptoms, you may return to the emergency room. All discharge instructions reviewed with patient and/or family. Voiced understanding. Scripts Sulfamethoxazole/Trimethoprim (Bactrim Ds Tablet) 1 Each Tablet 1 EACH PO BID, #10 TAB Prov: KYLE ARCE MD 02/28/20 KYLE ARCE MD Feb 28, 2020 23:19
[2020-02-28] MEDS ORDERED: TRIM/SULFAMETH 160/800 (SEPTRA DS) TAB PO ONE (23:30)
== END 2020-02-28 23:23 | disposition home or self-care (01) ==
LOC: EDUNIT# 23:01 → ER 23:02
DX: L03.032 Cellulitis of left toe (principal); Z87.891 Personal history of nicotine dependence
CPT/HCPCS: 99283

== ENCOUNTER 2020-06-01 21:15 | Emergency (ER) | payer MEDICAID ==
[~2020-06-01] VITALS: Ht 162 cm; Wt 120.0 kg
[~2020-06-01 21:15] MED LIST changes: -CLIN300C11 PO; +CLIN300C12 PO; -PANT40TA3 PO; +PANT40TA52 PO
--- NOTE | 2020-06-01 21:32 | ED General ---
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 She was also seen on Thursday of this past week for urinary tract infection at [facility] in [place] and continues to have some slight left lower quadrant abdominal pain. Timing/Duration: 1-2 Days Severity: Moderate Associated Systoms: Denies Symptoms Allergies and Home Medications Allergies Coded Allergies: No Known Drug Allergies (Unverified , 08/05/19) Home Medications Docusate Sodium 100 Mg Capsule, 100 MG PO BID Prescribed by: NALINI MCKEON on 08/30/19 0827 Sulfamethoxazole/Trimethoprim 1 Each Tablet, 1 EACH PO BID Prescribed by: KYLE MON on 02/28/20 1477 Patient Home Medication List Home Medication List Reviewed: Yes Review of Systems Review of Systems Constitutional: see HPI EENTM: see HPI Respiratory: no symptoms reported Cardiovascular: no symptoms reported Genitourinary: see HPI Musculoskeletal: no symptoms reported Skin: no symptoms reported Psychiatric/Neurological: No Symptoms Reported Hematologic/Lymphatic: No Symptoms Reported Past Ntibxxy-Yskmca-Zefvso Hx Patient Social History Type Used: Cigarettes Former Smoker, Quit: Mar 22, 2016 2nd Hand Smoke Exposure: No Recent Foreign Travel: No Contact w/Someone Who Travel: No Recent Hopitalizations: No Immunizations Up To Date Tetanus Booster (TDap): Unknown PED Vaccines UTD: Yes Seasonal Allergies Seasonal Allergies: No Past Medical History Surgeries: Yes (ganglion cyst on wrist ) Appendectomy, Gallbladder, Orthopedic Respiratory: No Cardiac: Yes High Cholesterol, Hypertension Neurological: Yes Headaches /Migraines Reproductive Disorders: No Female Reproductive Disorders: Menstrual Problems Genitourinary: No Gastrointestinal: Yes Gastroesophageal Reflux, Hemorrhoids, Gall Bladder Disease, Irritable Bowel Musculoskeletal: No Endocrine: No HEENT: No Cancer: No Psychosocial: Yes Depression Integumentary: No Recent Skin Changes Blood Disorders: No Adverse Reaction/Blood Tranf: No Family Medical History Patient reports no known family medical history. No Pertinent Family Hx Physical Exam Vital Signs Capillary Refill : Height, Weight, BMI Height: 5'4.00" Weight: 255lbs. 0oz. 115.794979fg; 46.00 BMI Method:Stated General Appearance: No Apparent Distress, WD/WN Eyes: Bilateral Eye Normal Inspection, Bilateral Eye PERRL, Bilateral Eye EOMI Respiratory: Lungs Clear, Normal Breath Sounds, No Accessory Muscle Use, No Respiratory Distress Cardiovascular: Regular Rate, Rhythm, Normal Peripheral Pulses Gastrointestinal: Normal Bowel Sounds, Non Tender, Soft Extremity: Normal Capillary Refill, Normal Inspection, Other (The volar aspect of the right wrist is tender to palpation but without erythema. Denies any numbness at this time.) Neurologic/Psychiatric: Alert, Oriented x3 Progress/Results/Core Measures Suspected Sepsis SIRS Temperature: Pulse: Respiratory Rate: Blood Pressure / Mean: Results/Orders My Orders Orders - LA[place] LANDA APRN Ua Culture If Indicated (06/01/20 21:27) Urine Bedside (06/01/20 21:27) Wrist-Wiley (06/01/20 21:27) Vital Signs/I&O Capillary Refill : Departure Impression Primary Impression: Wrist strain Additional Impression: LLQ pain Disposition: 01 HOME, SELF-CARE Condition: Stable Departure-Patient Inst. Decision time for Depature: 21:31 Referrals: KIARA MAO MD (PCP/Family) Primary Care Physician Patient Instructions: Common Wrist Injuries Add. Discharge Instructions: 1. This pain at your wrist could represent a strain or an overuse injury called tendinitis. Either way the treatment is a splint for rest. LA[place] LANDA APRN Jun 01, 2020 21:32
[2020-06-01 21:33] VITALS: BP 141/96
[2020-06-01 21:36] LABS: BILIRUBIN,URINE NEGATIVE (NEGATIVE); CLARITY,URINE CLEAR; COLOR,URINE YELLOW; GLUCOSE, URINE (UA) NEGATIVE (NEGATIVE); KETONES,URINE NEGATIVE (NEGATIVE); LEUKOCYTE ESTERASE ,URINE NEGATIVE (NEGATIVE); NITRITE,URINE NEGATIVE (NEGATIVE); PH,URINE 5.5 (5-9); PROTEIN,URINE NEGATIVE (NEGATIVE)
[2020-06-01 21:46] LABS: BACTERIA,URINE TRACE /HPF; RBC,URINE 0-2 /HPF
[2020-06-01 21:47] LABS: SQUAMOUS EPITHELIAL CELL,UR 25-50 /HPF
[2020-06-01 21:48] LABS: YEAST,URINE FEW /HPF
[2020-06-01] MEDS ORDERED: FLUCONAZOLE 150 MG TABLET (ED ONLY) PO ONE (22:00)
== END 2020-06-01 22:04 | disposition home or self-care (01) ==
LOC: EDUNIT# 21:15 → ER 21:16
DX: S66.911A Strain of unspecified muscle, fascia and tendon at wrist and hand level, right hand, initial encounter (principal); R10.32 Left lower quadrant pain; Z87.891 Personal history of nicotine dependence; X50.0XXA Overexertion from strenuous movement or load, initial encounter; Y93.F2 Activity, caregiving, lifting
CPT/HCPCS: 81000; 84703; 99283

== ENCOUNTER 2020-06-22 20:51 | Emergency (ER) | payer MEDICAID ==
[~2020-06-22] VITALS: Ht 165.1 cm; Wt 120.0 kg
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
[2020-06-22] MEDS ORDERED: ORPHENADRINE 60 MG/2 ML (NORFLEX) AMP (ED ONLY) IM ONE (22:45)
[2020-06-22] MEDS ORDERED: KETOROLAC 60 MG/2 ML VIAL IM ONE (22:45)
[2020-06-22 23:01] VITALS: BP 138/84
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
== END 2020-06-22 22:59 | disposition home or self-care (01) ==
LOC: EDUNIT# 20:51 → ER 20:53
DX: M54.2 Cervicalgia (principal); Z87.891 Personal history of nicotine dependence; Z32.02 Encounter for pregnancy test, result negative
CPT/HCPCS: 70450; 72100; 72125; 84703

== ENCOUNTER 2020-09-14 12:39 | Emergency (ER) | payer MEDICAID ==
[~2020-09-14] VITALS: Ht 162.6 cm; Wt 111.1 kg
[2020-09-14 13:50] LABS: BILIRUBIN,URINE NEGATIVE (NEGATIVE); CLARITY,URINE SL CLOUDY; COLOR,URINE YELLOW; GLUCOSE, URINE (UA) NEGATIVE (NEGATIVE); KETONES,URINE NEGATIVE (NEGATIVE); LEUKOCYTE ESTERASE ,URINE TRACE (NEGATIVE); NITRITE,URINE NEGATIVE (NEGATIVE); PROTEIN,URINE NEGATIVE (NEGATIVE)
--- NOTE | 2020-09-14 13:54 | ED General ---
General Chief Complaint: Dizziness/Syncope Stated Complaint: LIGHTHEADED / NAUSEA / TROUBLE WALKING Nursing Triage Note: onset of dizziness onset at 10am this morning while at work at [employer], claims after first break went back to work and a "wave of dizziness hit her like a ton of bricks" Nursing Sepsis Screen: No Definite Risk Source of Information: Patient Exam Limitations: No Limitations History of Present Illness Date Seen by Provider: Sep 14, 2020 Time Seen by Provider: 12:45 Initial Comments Patient presents to ER ambulatory to room 5 while eating a [employer] to report that she had sudden onset of weakness at 10 AM this morning. She also states that she feels like something in her pelvis is falling out intermittently. This sensation has been ongoing for 3 years.Menstrual period started yesterday. Timing/Duration: 1-2 Days Severity: Moderate Allergies and Home Medications Allergies Coded Allergies: No Known Drug Allergies (Unverified , 08/05/19) Home Medications Docusate Sodium 100 Mg Capsule, 100 MG PO BID Prescribed by: NALINI MCKEON on 08/30/19 0827 Sulfamethoxazole/Trimethoprim 1 Each Tablet, 1 EACH PO BID Prescribed by: KYLE MON on 02/28/20 2712 Patient Home Medication List Home Medication List Reviewed: Yes Review of Systems Review of Systems Constitutional: see HPI, weakness EENTM: see HPI Respiratory: no symptoms reported Cardiovascular: no symptoms reported Genitourinary: no symptoms reported Musculoskeletal: no symptoms reported Skin: no symptoms reported Psychiatric/Neurological: No Symptoms Reported Hematologic/Lymphatic: No Symptoms Reported Past Dfmxubd-Tnletq-Xytvpw Hx Patient Social History Alcohol Use: Denies Use Smoking Status: Never a Smoker Type Used: Cigarettes Former Smoker, Quit: Mar 22, 2016 2nd Hand Smoke Exposure: No Recent Infectious Disease Expo: No Recent Hopitalizations: No Immunizations Up To Date Tetanus Booster (TDap): Unknown PED Vaccines UTD: Yes Seasonal Allergies Seasonal Allergies: No Past Medical History Surgeries: Yes (ganglion cyst on wrist ) Appendectomy, Gallbladder, Orthopedic Respiratory: No Cardiac: Yes High Cholesterol, Hypertension Neurological: Yes Headaches /Migraines : No Reproductive Disorders: No Female Reproductive Disorders: Menstrual Problems Genitourinary: No Gastrointestinal: Yes Gastroesophageal Reflux, Hemorrhoids, Gall Bladder Disease, Irritable Bowel Musculoskeletal: No Endocrine: No HEENT: No Cancer: No Psychosocial: Yes Depression Integumentary: No Recent Skin Changes Blood Disorders: No Adverse Reaction/Blood Tranf: No Family Medical History Patient reports no known family medical history. No Pertinent Family Hx Physical Exam Vital Signs Vital Signs - First Documented 09/14/20 13:29 Temp 35.5 Pulse 82 Resp 17 B/P (MAP) 145/82 (103) Pulse Ox 98 O2 Delivery Room Air Capillary Refill : Less Than 3 Seconds Height, Weight, BMI Height: 5'4.00" Weight: 255lbs. 0oz. [id number]; 42.00 BMI Method:Stated General Appearance: No Apparent Distress, WD/WN Eyes: Bilateral Eye Normal Inspection, Bilateral Eye PERRL, Bilateral Eye EOMI HEENT: PERRL/EOMI, TMs Normal Neck: Full Range of Motion, Normal Inspection Respiratory: No Accessory Muscle Use, No Respiratory Distress Cardiovascular: Regular Rate, Rhythm, Normal Peripheral Pulses Gastrointestinal: Normal Bowel Sounds, Non Tender, Soft Extremity: Normal Capillary Refill, Normal Inspection Neurologic/Psychiatric: Alert, Oriented x3 Skin: Normal Color, Warm/Dry Progress/Results/Core Measures Suspected Sepsis Recent Fever Within 48 Hours: No Infection Criteria Present: None New/Unexplained Altered Menta: No Sepsis Screen: No Definite Risk SIRS Temperature: Pulse: 82 Respiratory Rate: 17 Laboratory Tests 09/14/20 13:48: White Blood Count 6.2 Blood Pressure 145 /82 Mean: 103 Laboratory Tests 09/14/20 13:48: Creatinine 0.73, Platelet Count 219, Total Bilirubin 0.4 Results/Orders Lab Results Laboratory Tests Test 09/14/20 13:23 09/14/20 13:48 Range/Units Urine Color YELLOW Urine Clarity SL CLOUDY Urine pH 6.0 5-9 Urine Specific Hudson 1.025 H 1.016-1.022 Urine Protein NEGATIVE NEGATIVE Urine Glucose (UA) NEGATIVE NEGATIVE Urine Ketones NEGATIVE NEGATIVE Urine Nitrite NEGATIVE NEGATIVE Urine Bilirubin NEGATIVE NEGATIVE Urine Urobilinogen 0.2 < = 1.0 MG/DL Urine Leukocyte Esterase TRACE H NEGATIVE Urine RBC (Auto) 3+ H NEGATIVE Urine RBC >100 H /HPF Urine WBC 2-5 /HPF Urine Squamous Epithelial Cells 2-5 /HPF Urine Crystals NONE /LPF Urine Bacteria TRACE /HPF Urine Casts NONE /LPF Urine Mucus NEGATIVE /LPF Urine Culture Indicated YES White Blood Count 6.2 4.3-11.0 10^3/uL Red Blood Count 4.24 3.80-5.11 10^6/uL Hemoglobin 12.7 11.5-16.0 g/dL Hematocrit 38 35-52 % Mean Corpuscular Volume 90 80-99 fL Mean Corpuscular Hemoglobin 30 25-34 pg Mean Corpuscular Hemoglobin Concent 33 32-36 g/dL Red Cell Distribution Width 13.5 10.0-14.5 % Platelet Count 219 130-400 10^3/uL Mean Platelet Volume 9.4 9.0-12.2 fL Immature Granulocyte % (Auto) 1 % Neutrophils (%) (Auto) 55 42-75 % Lymphocytes (%) (Auto) 36 12-44 % Monocytes (%) (Auto) 5 0-12 % Eosinophils (%) (Auto) 2 0-10 % Basophils (%) (Auto) 1 0-10 % Neutrophils # (Auto) 3.4 1.8-7.8 10^3/uL Lymphocytes # (Auto) 2.3 1.0-4.0 10^3/uL Monocytes # (Auto) 0.3 0.0-1.0 10^3/uL Eosinophils # (Auto) 0.1 0.0-0.3 10^3/uL Basophils # (Auto) 0.1 0.0-0.1 10^3/uL Immature Granulocyte # (Auto) 0.0 0.0-0.1 10^3/uL Sodium Level 139 135-145 MMOL/L Potassium Level 3.4 L 3.6-5.0 MMOL/L Chloride Level 103 98-107 MMOL/L Carbon Dioxide Level 28 21-32 MMOL/L Anion Gap 8 5-14 MMOL/L Blood Urea Nitrogen 11 7-18 MG/DL Creatinine 0.73 0.60-1.30 MG/DL Estimat Glomerular Filtration Rate > 60 BUN/Creatinine Ratio 15 Glucose Level 117 H 70-105 MG/DL Calcium Level 8.6 8.5-10.1 MG/DL Corrected Calcium 8.5 8.5-10.1 MG/DL Total Bilirubin 0.4 0.1-1.0 MG/DL Aspartate Amino Transf (AST/SGOT) 13 5-34 U/L Alanine Aminotransferase (ALT/SGPT) 10 0-55 U/L Alkaline Phosphatase 66 40-136 U/L Total Protein 7.3 6.4-8.2 GM/DL Albumin 4.1 3.2-4.5 GM/DL Serum Test, Qualitative NEGATIVE NEGATIVE My Orders Orders - LA[place] LANDA APRN Ua Culture If Indicated (09/14/20 13:44) Cbc With Automated Diff (09/14/20 13:44) Hcg,Qualitative Serum (09/14/20 13:44) Comprehensive Metabolic Panel (09/14/20 13:44) Ekg Tracing (09/14/20 13:44) Urine Culture (09/14/20 13:23) Potassium Chloride (Tablet) (Klor Con Ta (09/14/20 14:30) Vital Signs/I&O 09/14/20 13:29 Temp 35.5 Pulse 82 Resp 17 B/P (MAP) 145/82 (103) Pulse Ox 98 O2 Delivery Room Air Capillary Refill : Less Than 3 Seconds Blood Pressure Mean: 103 Departure Impression Primary Impression: Weakness Disposition: 01 HOME, SELF-CARE Condition: Stable Departure-Patient Inst. Decision time for Depature: 14:21 Referrals: KIARA MAO MD (PCP/Family) Primary Care Physician Patient Instructions: Weakness ED Add. Discharge Instructions: All discharge instructions reviewed with patient and/or family. Voiced underst anding. LA[place] LANDA APRN Sep 14, 2020 13:54
[2020-09-14 13:56] LABS: BASOPHILS # (AUTO) 0.1 10^3/uL (0.0-0.1); BASOPHILS % (AUTO) 1 % (0-10); EOSINOPHILS # (AUTO) 0.1 10^3/uL (0.0-0.3); EOSINOPHILS % (AUTO) 2 % (0-10); HEMATOCRIT 38 % (35-52); HEMOGLOBIN 12.7 g/dL (11.5-16.0); LYMPHOCYTES # (AUTO) 2.3 10^3/uL (1.0-4.0); LYMPHOCYTES % (AUTO) 36 % (12-44); MEAN CORPUSCULAR HEMOGLOBIN 30 pg (25-34); MEAN CORPUSCULAR HGB CONC 33 g/dL (32-36); MEAN CORPUSCULAR VOLUME 90 fL (80-99); MEAN PLATELET VOLUME 9.4 fL (9.0-12.2); MONOCYTES # (AUTO) 0.3 10^3/uL (0.0-1.0); MONOCYTES % (AUTO) 5 % (0-12); NEUTROPHILS # (AUTO) 3.4 10^3/uL (1.8-7.8); NEUTROPHILS % (AUTO) 55 % (42-75); PLATELET COUNT 219 10^3/uL (130-400); WHITE BLOOD COUNT 6.2 10^3/uL (4.3-11.0)
[2020-09-14 13:56] LABS: BACTERIA,URINE TRACE /HPF; RBC,URINE >100 /HPF
[2020-09-14 14:08] LABS: ALBUMIN 4.1 GM/DL (3.2-4.5); CHLORIDE 103 MMOL/L (98-107); POTASSIUM 3.4 MMOL/L (3.6-5.0); SODIUM 139 MMOL/L (135-145)
[2020-09-14 14:10] LABS: CALCIUM 8.6 MG/DL (8.5-10.1)
[2020-09-14 14:11] LABS: GLUCOSE 117 MG/DL (70-105); TOTAL PROTEIN 7.3 GM/DL (6.4-8.2)
[2020-09-14 14:12] LABS: CARBON DIOXIDE 28 MMOL/L (21-32)
[2020-09-14 14:13] LABS: BILIRUBIN,TOTAL 0.4 MG/DL (0.1-1.0)
[2020-09-14 14:14] LABS: ALKALINE PHOSPHATASE 66 U/L (40-136); CREATININE SERUM 0.73 MG/DL (0.60-1.30); GFR ESTIMATED > 60
[2020-09-14 14:15] LABS: BUN/CREATININE RATIO 15
[2020-09-14 14:17] LABS: ALANINE AMINOTRANSFERASE 10 U/L (0-55)
[2020-09-14] MEDS ORDERED: KCL 10 MEQ TAB (MICRO K) PO ONE (14:30)
[2020-09-14 14:35] VITALS: BP 125/77
== END 2020-09-14 14:35 | disposition home or self-care (01) ==
LOC: EDUNIT# 12:39 → ER 12:41
DX: R53.1 Weakness (principal); I10 Essential (primary) hypertension; Z87.891 Personal history of nicotine dependence
CPT/HCPCS: 36415; 80053; 81000; 84703; 85025; 87088

== ENCOUNTER 2020-09-16 09:23 | Emergency (ER) | payer MEDICAID ==
[~2020-09-16] VITALS: Ht 162 cm; Wt 111.0 kg
--- NOTE | 2020-09-16 09:41 | ED General ---
General Chief Complaint: General Problems/Pain Stated Complaint: WEAK,NUMBNESS IN LEGS Source of Information: Patient Exam Limitations: No Limitations History of Present Illness Date Seen by Provider: Sep 16, 2020 Time Seen by Provider: 09:36 Initial Comments Patient is a 29-year-old female who presents to the emergency department today with a chief complaint of some generalized weakness, paresthesias in her lower extremities and lack of motivation. Patient tells me that she was seen in the emergency room 2 days ago on Thursday and diagnosed with low potassium. She states she was given 4 pills to take and advised to try and supplement potassium in her diet. Patient states that throughout the weekend she started feeling poorly again she bought some gaat-gmz-[id number] potassium supplementation and took 2 last evening and 1 this morning. Patient also states that she has been attempting to drink Pedialyte to try to supplement her potassium. Patient is denying chest pain, shortness of breath, nausea vomiting or diarrhea. No genitourinary complaints. Patient denies fevers and chills. She states she is not really changed her diet much prior to Thursday. She does not take any prescribed medications. No family history of potassium issues that she is aware of. All other review of systems reviewed and negative except as stated above. Timing/Duration: 2-3 Days Severity: Moderate Associated Systoms: Denies Symptoms Allergies and Home Medications Allergies Coded Allergies: No Known Drug Allergies (Unverified , 08/05/19) Home Medications Docusate Sodium 100 Mg Capsule, 100 MG PO BID Prescribed by: NALINI MCKEON on 08/30/19 0823 Sulfamethoxazole/Trimethoprim 1 Each Tablet, 1 EACH PO BID Prescribed by: KYLE MON on 02/28/20 8417 Patient Home Medication List Home Medication List Reviewed: Yes Review of Systems Review of Systems Constitutional: see HPI EENTM: no symptoms reported Respiratory: no symptoms reported Cardiovascular: no symptoms reported Gastrointestinal: no symptoms reported Genitourinary: no symptoms reported Musculoskeletal: muscle weakness Psychiatric/Neurological: Numbness, Paresthesia All Other Systems Reviewed Negative Unless Noted: Yes Past Zgslnrf-Zlzzxx-Heotuf Hx Patient Social History Type Used: Cigarettes Former Smoker, Quit: Mar 22, 2016 2nd Hand Smoke Exposure: No Recent Hopitalizations: No Immunizations Up To Date Tetanus Booster (TDap): Unknown PED Vaccines UTD: Yes Seasonal Allergies Seasonal Allergies: No Past Medical History Surgeries: Yes (ganglion cyst on wrist ) Appendectomy, Gallbladder, Orthopedic Respiratory: No Cardiac: Yes High Cholesterol, Hypertension Neurological: Yes Headaches /Migraines Reproductive Disorders: No Female Reproductive Disorders: Menstrual Problems Genitourinary: No Gastrointestinal: Yes Gastroesophageal Reflux, Hemorrhoids, Gall Bladder Disease, Irritable Bowel Musculoskeletal: No Endocrine: No HEENT: No Cancer: No Psychosocial: Yes Depression Integumentary: No Recent Skin Changes Blood Disorders: No Adverse Reaction/Blood Tranf: No Family Medical History Patient reports no known family medical history. No Pertinent Family Hx Physical Exam Vital Signs Vital Signs - First Documented 09/16/20 09:25 Temp 36.9 Pulse 88 Resp 20 B/P (MAP) 121/82 (95) Pulse Ox 100 Capillary Refill : Height, Weight, BMI Height: 5'4.00" Weight: 255lbs. 0oz. 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 She states it feels more like "when the hairs are standing on and", And describes a paresthesia.) Progress/Results/Core Measures Suspected Sepsis SIRS Temperature: Pulse: Respiratory Rate: Blood Pressure / Mean: Laboratory Tests 09/16/20 10:19: Creatinine 0.68 Results/Orders Lab Results Laboratory Tests Test 09/16/20 10:19 Range/Units Sodium Level 136 135-145 MMOL/L Potassium Level 4.3 3.6-5.0 MMOL/L Chloride Level 101 98-107 MMOL/L Carbon Dioxide Level 23 21-32 MMOL/L Anion Gap 12 5-14 MMOL/L Blood Urea Nitrogen 9 7-18 MG/DL Creatinine 0.68 0.60-1.30 MG/DL Estimat Glomerular Filtration Rate > 60 BUN/Creatinine Ratio 13 Glucose Level 102 70-105 MG/DL Calcium Level 9.1 8.5-10.1 MG/DL My Orders Orders - BROOK WEAVER MD Basic Metabolic Panel (09/16/20 09:45) Vital Signs/I&O 09/16/20 09:25 Temp 36.9 Pulse 88 Resp 20 B/P (MAP) 121/82 (95) Pulse Ox 100 Capillary Refill : Progress Note : Time: 11:02 Progress Note Patient seen and evaluated, 29-year-old who complains of numbness and paresthesias to her bilateral lower extremities. Patient reportedly was diagnosed with low potassium 3 days ago. She has been taking a little bit extra jdki-vek-eiucnev supplementation since that time. Looks like her potassium has recovered and is 4.3 today. Patient has no objective findings of strokelike symptoms. No unilateral weakness numbness or tingling. No severe headache no vision changes no speech difficulties. Patient has no complaints of upper respiratory viral type syndromes or gastrointestinal distress. Reassurance is given. Patient is advised to drink plenty of fluids to stay well-hydrated and keep up with her nutrition. She is given the day off work today. I have advised her also to follow-up with her primary care physician this week Dr. Dave Mao. Patient verbalized understanding. All questions are sought and answered. Patient is stable for discharge. Departure Impression Primary Impression: Weakness Disposition: 01 HOME, SELF-CARE Condition: Stable Departure-Patient Inst. Decision time for Depature: 11:03 Referrals: DAVE MAO MD (PCP/Family) Primary Care Physician Patient Instructions: Weakness ED Add. Discharge Instructions: Drink plenty of fluids to stay well-hydrated. Keep up on your nutrition and eat 3 square meals daily. Follow-up with your primary care physician this week. Come back to the emergency room for reevaluation if you notice new symptoms, worsening weakness, numbness or any other emergent concerns. Work/School Note: Work Release Form Date Seen in the Emergency Department: Roslyn lozano 2020 Return to Work: Sep 17, 2020 Copy Copies To 1: DAVE MAO MD, KATHRYN M MD Sep 16, 2020 09:41
[2020-09-16 10:44] LABS: CHLORIDE 101 MMOL/L (98-107); POTASSIUM 4.3 MMOL/L (3.6-5.0); SODIUM 136 MMOL/L (135-145)
[2020-09-16 10:46] LABS: CALCIUM 9.1 MG/DL (8.5-10.1); GLUCOSE 102 MG/DL (70-105)
[2020-09-16 10:48] LABS: CARBON DIOXIDE 23 MMOL/L (21-32)
[2020-09-16 10:50] LABS: CREATININE SERUM 0.68 MG/DL (0.60-1.30); GFR ESTIMATED > 60
[2020-09-16 10:51] LABS: BUN/CREATININE RATIO 13
[2020-09-16 11:08] VITALS: BP 116/75
== END 2020-09-16 11:08 | disposition home or self-care (01) ==
LOC: EDUNIT# 09:23 → ER 09:25
DX: R53.1 Weakness (principal); R20.2 Paresthesia of skin; I10 Essential (primary) hypertension; Z87.891 Personal history of nicotine dependence
CPT/HCPCS: 36415; 80048; 99281

== ENCOUNTER 2020-09-22 10:43 | Emergency (ER) | payer MEDICAID ==
[2020-09-22 10:50] VITALS: BP 147/82
--- NOTE | 2020-09-22 11:08 | ED General ---
General Chief Complaint: Dizziness/Syncope Stated Complaint: DIZZINESS | GENERAL WEAKNESS Nursing Triage Note: dizziness started at 0930 this morning. Intermittent dizziness and palpitations x 1 week. Nauseous but no vomiting. No recent illnesses. States her speech has been "off." States she feels confused at times but can still speak. Numbness and tingling intermittently all over body. No fevers. Was at ER at [place] twice this week and was told she had low potassium and then that her potassium was ok. Has been taking potassium pills. Nursing Sepsis Screen: No Definite Risk Source of Information: Patient Exam Limitations: No Limitations History of Present Illness Date Seen by Provider: Sep 22, 2020 Time Seen by Provider: 11:08 Initial Comments 29-year-old female with 1 week history of intermittent dizziness. Worse with standing or changing positions. Denies any recent illness, fever or chills. Denies chest pain, swollen extremities, heart palpitations. Denies cough or shortness of air. Denies abdominal pain or nausea. Has been seen in the [place] ER twice since onset was told she had a low potassium. Has also seen her primary doctor. Allergies and Home Medications Allergies Coded Allergies: No Known Drug Allergies (Unverified , 08/05/19) Home Medications Docusate Sodium 100 Mg Capsule, 100 MG PO BID Prescribed by: NALINI MCKEON on 08/30/19 0827 Meclizine HCl 25 Mg Tablet, 25 MG PO Q8H Prescribed by: MARGA BAER on 09/22/20 1114 Sulfamethoxazole/Trimethoprim 1 Each Tablet, 1 EACH PO BID Prescribed by: KYLE MON on 02/28/20 2319 Patient Home Medication List Home Medication List Reviewed: Yes Review of Systems Review of Systems Constitutional: No chills; dizziness; No fever, No malaise, No weakness EENTM: no symptoms reported Respiratory: no symptoms reported Cardiovascular: no symptoms reported Gastrointestinal: no symptoms reported; No abdominal pain, No loss of appetite, No nausea, No vomiting Musculoskeletal: No back pain, No joint pain Skin: No change in color Past Ozuneuw-Ymqynf-Mnruwt Hx Past Med/Social Hx: Reviewed Nursing Past Med/Soc Hx Patient Social History Alcohol Use: Denies Use Smoking Status: Former Smoker Type Used: Cigarettes Former Smoker, Quit: Mar 22, 2016 2nd Hand Smoke Exposure: No Recent Infectious Disease Expo: No Recent Hopitalizations: No Immunizations Up To Date Tetanus Booster (TDap): Unknown PED Vaccines UTD: Yes Seasonal Allergies Seasonal Allergies: No Past Medical History Surgeries: Yes (ganglion cyst on wrist ) Appendectomy, Gallbladder, Orthopedic Respiratory: No Cardiac: Yes High Cholesterol, Hypertension Neurological: Yes Headaches /Migraines Reproductive Disorders: No Female Reproductive Disorders: Menstrual Problems Genitourinary: No Gastrointestinal: Yes Gastroesophageal Reflux, Hemorrhoids, Gall Bladder Disease, Irritable Bowel Musculoskeletal: No Endocrine: No HEENT: No Cancer: No Psychosocial: Yes Depression Integumentary: No Recent Skin Changes Blood Disorders: No Adverse Reaction/Blood Tranf: No Family Medical History Patient reports no known family medical history. No Pertinent Family Hx Physical Exam Vital Signs Vital Signs - First Documented 09/22/20 10:50 Temp 35.7 Pulse 87 Resp 16 B/P (MAP) 147/82 (103) Pulse Ox 98 Capillary Refill : Less Than 3 Seconds Height, Weight, BMI Height: 5'4.00" Weight: 255lbs. 0oz. 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 Decision time for Depature: 11:13 Referrals: KIARA MAO MD (PCP/Family) Primary Care Physician Patient Instructions: Dizziness, Nonvertigo, (DC) Add. Discharge Instructions: See Dr Mao next week for re-evaluation All discharge instructions reviewed with patient and/or family. Voiced understanding. Scripts Meclizine HCl (Meclizine HCl) 25 Mg Tablet 25 MG PO Q8H for Dizziness, #20 TAB Prov: MARGA BEAR DO 09/22/20 MARGA BEAR DO Sep 22, 2020 11:08
[2020-09-22] MEDS ORDERED: MECL-149 PO (11:14)
== END 2020-09-22 11:28 | disposition home or self-care (01) ==
LOC: EDUNIT# 10:43 → ER FS 10:46
DX: R42 Dizziness and giddiness (principal); I10 Essential (primary) hypertension; E87.6 Hypokalemia; Z87.891 Personal history of nicotine dependence; Z79.899 Other long term (current) drug therapy
CPT/HCPCS: 99283

== ENCOUNTER 2020-10-10 21:22 | Emergency (ER) | payer MEDICAID ==
[~2020-10-10] VITALS: Ht 165.1 cm; Wt 109.8 kg
[~2020-10-10 21:22] MED LIST changes: +MECL-149 PO
--- NOTE | 2020-10-10 21:54 | ED Abdominal Pain ---
General Stated Complaint: ABD PAIN Source of Information: Patient History of Present Illness Date Seen by Provider: Oct 10, 2020 Time Seen by Provider: 21:35 Initial Comments PT ARRIVES VIA POV FROM HOME C/O GENERALIZED ABDOMINAL PAIN AND NAUSEA SINCE AUGUST NO VOMITING NO FEVER NO URINARY SYMPTOMS HAD NORMAL BM TODAY PT HAS BEEN ABLE TO EAT AND DRINK NORMALLY NOTHING WORSENS OR IMPROVES SYMPTOMS STATES SHE "SPOTTED" IN AUGUST, IS NOT ON CONTROL STATES SHE IS "POSSIBLY " HAS NOT DONE ANY HOME TESTS SAW DR. MAO 2 WEEKS AGO FOR THIS PROBLEM AND HAD LAB AND SERUM TEST DONE AND WERE NORMAL, PER PT NO RX'S GIVEN PT HAS NOT TAKEN ANYTHING FOR SYMPTOMS AT ANY TIME SYMPTOMS ARE NO DIFFERENT TONIGHT PT WITH MULTIPLE VISITS, MANY FOR PAIN-RELATED COMPLAINTS 5 VISITS IN 2020 PT SEEN HERE 09/14/20 AND 09/16/20 FOR GENERALIZED WEAKNESS SEEN AGAIN AT [facility] 09/22/20 FOR DIZZINESS WORK-UP'S ESSENTIALLY NORMAL, HAD SLIGHTLY LOW POTASSIUM AT 3.4 ON 09/14/20 Allergies and Home Medications Allergies Coded Allergies: No Known Drug Allergies (Unverified , 08/05/19) Home Medications Docusate Sodium 100 Mg Capsule, 100 MG PO BID Prescribed by: NALINI MCKEON on 08/30/19 0827 Meclizine HCl 25 Mg Tablet, 25 MG PO Q8H Prescribed by: MARGA BEAR on 09/22/20 1114 Naproxen 500 Mg Tablet.dr, 500 MG PO BID Prescribed by: ISIDRO ESQUEDA on 10/10/202327 Nitrofurantoin Monohyd/M-Cryst 100 Mg Capsule, 1 TAB PO BID Prescribed by: ISIDRO ESQUEDA on 10/10/202327 Ondansetron 4 Mg Tab.rapdis, 4 MG PO Q4H Prescribed by: ISIDRO ESQUEDA on 10/10/202327 Sulfamethoxazole/Trimethoprim 1 Each Tablet, 1 EACH PO BID Prescribed by: KYLE MON on 02/28/20 2319 Patient Home Medication List Home Medication List Reviewed: Yes Review of Systems Review of Systems Constitutional: no symptoms reported; No chills, No diaphoresis, No dizziness, No fever EENTM: No Symptoms Reported Respiratory: No Symptoms Reported Cardiovascular: No Symptoms Reported Gastrointestinal: See HPI, Abdominal Pain; Denies Constipated, Denies Diarrhea; Nausea; Denies Vomiting Genitourinary: No Symptoms Reported Musculoskeletal: no symptoms reported Skin: no symptoms reported Psychiatric/Neurological: No Symptoms Reported Endocrine: No Symptoms Reported Hematologic/Lymphatic: No Symptoms Reported Past Kwdsnxd-Hupkrv-Jtfssi Hx Past Med/Social Hx: Reviewed and Corrections made Patient Social History Alcohol Use: Denies Use Drug of Choice: DENIES Smoking Status: Former Smoker Type Used: Cigarettes Former Smoker, Quit: Mar 22, 2016 2nd Hand Smoke Exposure: No Recent Hopitalizations: No Immunizations Up To Date Tetanus Booster (TDap): Unknown PED Vaccines UTD: Yes Seasonal Allergies Seasonal Allergies: No Past Medical History Surgeries: Yes (ganglion cyst on L wrist ) Appendectomy, Gallbladder, Orthopedic Respiratory: No Cardiac: Yes High Cholesterol, Hypertension Neurological: Yes Headaches /Migraines Reproductive Disorders: Yes Female Reproductive Disorders: Menstrual Problems Genitourinary: No Gastrointestinal: Yes (ANAL FISSURE; CHOLECYSTECTOMY 2017) Gastroesophageal Reflux, Hemorrhoids, Polyps, Gall Bladder Disease, Irritable Bowel Musculoskeletal: Yes (LEFT WRIST GANGLION CYST REMOVED) Endocrine: No HEENT: Yes (DENTAL CARIES) Cancer: No Psychosocial: Yes Anxiety, Depression Integumentary: No Recent Skin Changes Blood Disorders: No Adverse Reaction/Blood Tranf: No Family Medical History Patient reports no known family medical history. No Pertinent Family Hx SOCIAL HISTORY: -ETOH -DRUGS -SMOKING PAST SURGICAL HISTORY: -CHOLECYSTECTOMY 04/01/[address] MCKEON -COLONOSCOPY/POLYPECTOMY O BY DR. MCKEON -EGD 03/09/[address] MCKEON -LEFT WRIST GANGLION CHST BY DR. MCKEON 2014 -APPENDECTOMY Physical Exam Vital Signs Vital Signs - First Documented 10/10/20 21:32 Temp 35.8 Pulse 84 Resp 16 B/P (MAP) 148/84 (105) Pulse Ox 100 O2 Delivery Room Air Capillary Refill : Height/Weight/BMI Height: 5'4.00" Weight: 255lbs. 0oz. 115.766754fp; 42.00 BMI Method:Stated General Appearance: WD/WN, no apparent distress, obese, other (VERY NON- CHALANT, SITTING ON SIDE OF BED SWINGING LEGS BACK AND FORTH. WALKS UPRIGHT AND MOVES WITHOUT DIFFICULTY. DOES NOT APPEAR TO BE IN ANY DISCOMFORT OR DISTRESS. 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, no motor/sensory deficits, alert, normal mood/affect, oriented x 3 Skin: normal color, warm/dry Progress/Results/Core Measures Results/Orders Lab Results Laboratory Tests Test 10/10/20 21:25 10/10/20 21:45 Range/Units Urine Color YELLOW Urine Clarity CLEAR Urine pH 7.0 5-9 Urine Specific [place] 1.025 H 1.016-1.022 Urine Protein NEGATIVE NEGATIVE Urine Glucose (UA) NEGATIVE NEGATIVE Urine Ketones NEGATIVE NEGATIVE Urine Nitrite NEGATIVE NEGATIVE Urine Bilirubin NEGATIVE NEGATIVE Urine Urobilinogen 0.2 < = 1.0 MG/DL Urine Leukocyte Esterase TRACE H NEGATIVE Urine RBC (Auto) NEGATIVE NEGATIVE Urine RBC NONE /HPF Urine WBC NONE /HPF Urine Squamous Epithelial Cells 5-10 /HPF Urine Crystals NONE /LPF Urine Bacteria LARGE H /HPF Urine Casts NONE /LPF Urine Mucus NEGATIVE /LPF Urine Culture Indicated NO Urine Opiates Screen NEGATIVE NEGATIVE Urine Oxycodone Screen NEGATIVE NEGATIVE Urine Methadone Screen NEGATIVE NEGATIVE Urine Propoxyphene Screen NEGATIVE NEGATIVE Urine Barbiturates Screen NEGATIVE NEGATIVE Ur Tricyclic Antidepressants Screen NEGATIVE NEGATIVE Urine Phencyclidine Screen NEGATIVE NEGATIVE Urine Amphetamines Screen NEGATIVE NEGATIVE Urine Methamphetamines Screen NEGATIVE NEGATIVE Urine Benzodiazepines Screen NEGATIVE NEGATIVE Urine Cocaine Screen NEGATIVE NEGATIVE Urine Cannabinoids Screen NEGATIVE NEGATIVE White Blood Count 8.5 4.3-11.0 10^3/uL Red Blood Count 4.24 3.80-5.11 10^6/uL Hemoglobin 12.6 11.5-16.0 g/dL Hematocrit 38 35-52 % Mean Corpuscular Volume 89 80-99 fL Mean Corpuscular Hemoglobin 30 25-34 pg Mean Corpuscular Hemoglobin Concent 33 32-36 g/dL Red Cell Distribution Width 13.4 10.0-14.5 % Platelet Count 230 130-400 10^3/uL Mean Platelet Volume 9.4 9.0-12.2 fL Immature Granulocyte % (Auto) 0 % Neutrophils (%) (Auto) 57 42-75 % Lymphocytes (%) (Auto) 34 12-44 % Monocytes (%) (Auto) 6 0-12 % Eosinophils (%) (Auto) 2 0-10 % Basophils (%) (Auto) 1 0-10 % Neutrophils # (Auto) 4.9 1.8-7.8 10^3/uL Lymphocytes # (Auto) 2.9 1.0-4.0 10^3/uL Monocytes # (Auto) 0.5 0.0-1.0 10^3/uL Eosinophils # (Auto) 0.1 0.0-0.3 10^3/uL Basophils # (Auto) 0.1 0.0-0.1 10^3/uL Immature Granulocyte # (Auto) 0.0 0.0-0.1 10^3/uL Sodium Level 138 135-145 MMOL/L Potassium Level 3.6 3.6-5.0 MMOL/L Chloride Level 101 98-107 MMOL/L Carbon Dioxide Level 23 21-32 MMOL/L Anion Gap 14 5-14 MMOL/L Blood Urea Nitrogen 11 7-18 MG/DL Creatinine 0.75 0.60-1.30 MG/DL Estimat Glomerular Filtration Rate > 60 BUN/Creatinine Ratio 15 Glucose Level 122 H 70-105 MG/DL Calcium Level 8.8 8.5-10.1 MG/DL Corrected Calcium 8.6 8.5-10.1 MG/DL Magnesium Level 1.9 1.6-2.4 MG/DL Total Bilirubin 0.3 0.1-1.0 MG/DL Aspartate Amino Transf (AST/SGOT) 14 5-34 U/L Alanine Aminotransferase (ALT/SGPT) 10 0-55 U/L Alkaline Phosphatase 73 40-136 U/L Total Protein 7.5 6.4-8.2 GM/DL Albumin 4.2 3.2-4.5 GM/DL Amylase Level 38 25-125 U/L Lipase 208 H 8-78 U/L My Orders Orders - ISIDRO ESQUEDA DO Ed Iv/Invasive Line Start (10/10/20 21:39) Amylase (10/10/20 21:39) Cbc With Automated Diff (10/10/20 21:39) Comprehensive Metabolic Panel (10/10/20 21:39) Drug Screen Stat (Urine) (10/10/20 21:39) Lipase (10/10/20 21:39) Magnesium (10/10/20 21:39) Ua Culture If Indicated (10/10/20 21:39) Urine Bedside (10/10/20 21:39) Urine Culture (10/10/20 22:32) Ct Abdomen/Pelvis W (10/10/20 22:32) Acute Abd Series (10/10/20 22:32) Iohexol Injection (Omnipaque 350 Mg/Ml 1 (10/10/20 22:45) Received Contrast (Hold Metformin- Contr (10/10/20 22:45) Ns (Ivpb) (Sodium Chloride 0.9% Ivpb Bag (10/10/20 22:45) Medications Given in ED Current Medications Medications Dose Ordered Sig/Jessica Route Start Time Stop Time Status Last Admin Dose Admin Iohexol 100 ml ONCE ONCE IV 10/10/20 22:45 10/10/20 22:46 DC 10/10/20 22:57 100 ML Sodium Chloride 100 ml ONCE ONCE IV 10/10/20 22:45 10/10/20 22:46 DC 10/10/20 22:57 100 ML Vital Signs/I&O 10/10/20 10/10/20 21:32 23:31 Temp 35.8 35.8 Pulse 84 78 Resp 16 16 B/P (MAP) 148/84 (105) 137/80 (105) Pulse Ox 100 100 O2 Delivery Room Air Room Air Progress Progress Note : Progress Note LAYING OUTSTRETCHED AND PLAYING/TEXTING ON PHONE FOR REMAINDER OF ER STAY NO COMPLAINTS OF ANY KIND DURING ENTIRE ER STAY Diagnostic Imaging Comments ABDOMEN XRAYS--NO ACUTE PROCESS, PENDING RADIOLOGIST REVIEW CT ABDOMEN/PELVIS--WIDE VENTRAL HERNIA WITHOUT EVIDENCE OF OBSTRUCTION OR INCARCERATION--PER [facility] VIA FAX AT 7110 Reviewed: Reviewed by Me Departure Impression Primary Impression: Urinary tract infection Additional Impression: Ventral hernia Disposition: 01 HOME, SELF-CARE Condition: Stable Departure-Patient Inst. Referrals: NALINI MCKEON DANIEL J MD (PCP/Family) Primary Care Physician Patient Instructions: Urinary Tract Infection, Adult (DC), Abdominal Hernia (DC) Add. Discharge Instructions: LOTS OF CLEAR LIQUIDS--NO COFFEE, POP OR TEA FOLLOW UP WITH DR. MAO IN 7-10 DAYS TO RECHECK URINE FOLLOW UP WITH DR. MCKEON FOR FURTHER EVALUATION OF HERNIA Scripts Ondansetron (Ondansetron Odt) 4 Mg Tab.rapdis 4 MG PO Q4H for Nausea/Vomiting, #10 TAB Prov: ISIDRO ESQUEDA DO 10/10/20 Naproxen (Naproxen) 500 Mg Tablet.dr 500 MG PO BID, #20 TAB Prov: ISIDRO ESQUEDA DO 10/10/20 Nitrofurantoin Monohyd/M-Cryst (Macrobid 100 mg Capsule) 100 Mg Capsule 1 TAB PO BID, #20 CAP Prov: ISIDRO ESQUEDA DO 10/10/20 ISIDRO ESQUEDA DO Oct 10, 2020 21:54
[2020-10-10 21:55] LABS: BASOPHILS # (AUTO) 0.1 10^3/uL (0.0-0.1); BASOPHILS % (AUTO) 1 % (0-10); EOSINOPHILS # (AUTO) 0.1 10^3/uL (0.0-0.3); EOSINOPHILS % (AUTO) 2 % (0-10); HEMATOCRIT 38 % (35-52); HEMOGLOBIN 12.6 g/dL (11.5-16.0); LYMPHOCYTES # (AUTO) 2.9 10^3/uL (1.0-4.0); LYMPHOCYTES % (AUTO) 34 % (12-44); MEAN CORPUSCULAR HEMOGLOBIN 30 pg (25-34); MEAN CORPUSCULAR HGB CONC 33 g/dL (32-36); MEAN CORPUSCULAR VOLUME 89 fL (80-99); MEAN PLATELET VOLUME 9.4 fL (9.0-12.2); MONOCYTES # (AUTO) 0.5 10^3/uL (0.0-1.0); MONOCYTES % (AUTO) 6 % (0-12); NEUTROPHILS # (AUTO) 4.9 10^3/uL (1.8-7.8); NEUTROPHILS % (AUTO) 57 % (42-75); PLATELET COUNT 230 10^3/uL (130-400); WHITE BLOOD COUNT 8.5 10^3/uL (4.3-11.0)
[2020-10-10 22:07] LABS: BILIRUBIN,URINE NEGATIVE (NEGATIVE); CLARITY,URINE CLEAR; COLOR,URINE YELLOW; GLUCOSE, URINE (UA) NEGATIVE (NEGATIVE); KETONES,URINE NEGATIVE (NEGATIVE); LEUKOCYTE ESTERASE ,URINE TRACE (NEGATIVE); NITRITE,URINE NEGATIVE (NEGATIVE); PROTEIN,URINE NEGATIVE (NEGATIVE)
[2020-10-10 22:18] LABS: BACTERIA,URINE LARGE /HPF
[2020-10-10 22:19] LABS: AMPHETAMINE SCREEN, URINE NEGATIVE (NEGATIVE); BARBITURATE SCREEN URINE NEGATIVE (NEGATIVE); BENZODIAZEPINES SCREEN URINE NEGATIVE (NEGATIVE); CANNABINOID SCREEN, URINE NEGATIVE (NEGATIVE); COCAINE SCREEN URINE NEGATIVE (NEGATIVE); METHADONE STAT NEGATIVE (NEGATIVE); METHAMPHETAMINE SCREEN URINE S NEGATIVE (NEGATIVE); OPIATE SCREEN URINE NEGATIVE (NEGATIVE); OXYCODONE STAT NEGATIVE (NEGATIVE); PROPOXYPHENE STAT NEGATIVE (NEGATIVE); TRICYCLIC ANTIDEPRESSANTS SCRE NEGATIVE (NEGATIVE)
[2020-10-10 22:26] LABS: ALANINE AMINOTRANSFERASE 10 U/L (0-55); ALBUMIN 4.2 GM/DL (3.2-4.5); ALKALINE PHOSPHATASE 73 U/L (40-136); AMYLASE 38 U/L (25-125); BILIRUBIN,TOTAL 0.3 MG/DL (0.1-1.0); BUN/CREATININE RATIO 15; CALCIUM 8.8 MG/DL (8.5-10.1); CARBON DIOXIDE 23 MMOL/L (21-32); CHLORIDE 101 MMOL/L (98-107); CREATININE SERUM 0.75 MG/DL (0.60-1.30); GFR ESTIMATED > 60; GLUCOSE 122 MG/DL (70-105); LIPASE 208 U/L (8-78); MAGNESIUM 1.9 MG/DL (1.6-2.4); POTASSIUM 3.6 MMOL/L (3.6-5.0); SODIUM 138 MMOL/L (135-145); TOTAL PROTEIN 7.5 GM/DL (6.4-8.2)
[2020-10-10] MEDS ORDERED: HOLD METFORMIN - RECEIVED CONTRAST 20 ML VIAL IV SCH (22:45)
[2020-10-10] MEDS ORDERED: IOHEXOL 350 MG/ML 100 ML (OMNIPAQUE 350) VIAL IV ONE (22:45)
[2020-10-10] MEDS ORDERED: NS 100 ML (IVPB) BAG IV ONE (22:45)
[2020-10-10] MEDS ORDERED: NAPR500T8 PO ×2 (23:27→23:28)
[2020-10-10] MEDS ORDERED: NITR-65 PO ×2 (23:27→23:28)
[2020-10-10] MEDS ORDERED: ONDA4TAB11 PO (23:28)
[2020-10-10 23:31] VITALS: BP 137/80
--- NOTE | 2020-10-11 05:17 | Diagnostic Imaging Report ---
INDICATION: Abdominal pain PA chest, supine and upright abdominal images are obtained. Lungs are clear. There is no intraperitoneal free air. Bowel gas pattern is normal. There is contrast in the urinary collecting system from a prior CT. IMPRESSION: Unremarkable abdomen series Dictated by: Dictated on workstation # [id number]
--- NOTE | 2020-10-11 05:24 | Diagnostic Imaging Report ---
PROCEDURE: CT abdomen and pelvis with contrast. TECHNIQUE: Multiple contiguous axial images were obtained through the abdomen and pelvis after administration of intravenous contrast. Auto Exposure Controls were utilized during the CT exam to meet ALARA standards for radiation dose reduction. All CT scans use one or more of the following dose optimizing techniques: automated exposure control, MA and/or KvP adjustment based on patient size and exam type or iterative reconstruction. INDICATION: Abdominal pain with nausea and distention Lung bases are clear. Liver appears normal. Gallbladder surgically absent. Portal vein is patent. Common duct is not dilated. Pancreas appears normal. Spleen is not enlarged. Adrenals are normal. Kidneys appear normal. There is moderate residue in the stomach. Small bowel is not dilated. There is no evidence of appendicitis. There is moderate fecal stasis. Aorta and IVC are unremarkable. Uterus is present. Adnexa are unremarkable. There is no intraperitoneal free air or free fluid. Urinary bladder is decompressed. IMPRESSION: No acute abnormality seen in the abdomen or pelvis Agree with preliminary interpretation. Dictated by: Dictated on workstation # [id number]
== END 2020-10-10 23:42 | disposition home or self-care (01) ==
LOC: EDUNIT# 21:22 → ER 21:24
DX: N39.0 Urinary tract infection, site not specified (principal); K43.9 Ventral hernia without obstruction or gangrene; I10 Essential (primary) hypertension; E66.9 Obesity, unspecified; Z68.41 Body mass index [BMI] 40.0-44.9, adult; Z87.891 Personal history of nicotine dependence
CPT/HCPCS: 36415; 74022; 74177; 80053; 80306; 81000; 82150; 83690; 83735; 84703; 85025; 87077; 87088

== ENCOUNTER 2020-10-15 09:25 | Emergency (ER) | payer MEDICAID ==
[~2020-10-15] VITALS: Ht 165 cm; Wt 109.0 kg
[~2020-10-15 09:25] MED LIST changes: +NAPR500T8 PO; +NITR-65 PO; +ONDA4TAB11 PO
--- NOTE | 2020-10-15 10:34 | ED General ---
General Chief Complaint: Dizziness/Syncope Stated Complaint: WEAKNESS,DIZZINESS Nursing Triage Note: ARRIVED VIA AMB TO ROOM 07 WITHOUT DIFFICULTY. COMPLAINS OF HAVING A SUDDEN ONSET OF WEAKNESS AND FLUSHING 35 MINS AGO WHILE AT WORK. STATES SHE FELT LIKE SHE WAS GOING TO FAINT. THIS HAPPENED APPX 3 WEEKS AGO AND STATES SHE WENT TO THE DR BUT DID NOT RECIEVE ANSWERS. Nursing Sepsis Screen: No Definite Risk Source of Information: Patient Exam Limitations: No Limitations History of Present Illness Date Seen by Provider: Oct 15, 2020 Time Seen by Provider: 09:41 Initial Comments Patient is a 29-year-old female who presents to the emergency department today with a chief complaint of feeling sudden episodes of generalized weakness that either start from the top of her head and go down to her toes or start her toes and radiate upward. Patient states that she was at work about an hour ago when she suddenly had this sensation. She states that she felt a little flushed and she felt dizzy and like she was going to faint. Patient states that she has these episodes off and on quite frequently. She states she feels dizzy like she is walking on a boat and unsteady. She denies any headache or visual changes with it although does qualify by saying that she occasionally has blurry vision. She denies any recent infections/upper respiratory tract symptoms. She does not get short of breath. Patient occasionally states she feels heavy pressure on her chest but she cannot recall the last time that happened. Occasionally she is nauseated with the symptoms. No other GI or complaints. Patient has had multiple visits to the emergency department going back as far as July at this facility. She has had a fairly extensive work-up with laboratory studies done as well as imaging/chest x-ray/CT scan of the abdomen and pelvis. Patient states she is currently experiencing mild symptoms. She was given a prescription for meclizine at a visit to [facility] about a month ago but did not take it because she was "scared" of the medication. All other review of systems reviewed and negative except as stated above. Timing/Duration: 1 Hour Severity: Moderate Modifying Factors: improves with Immobilization; worse with Movement Associated Systoms: Malaise, Nausea/Vomiting, Other (dizzy) Allergies and Home Medications Allergies Coded Allergies: No Known Drug Allergies (Unverified , 08/05/19) Home Medications Docusate Sodium 100 Mg Capsule, 100 MG PO BID Prescribed by: NALINI MCKEON on 08/30/19 0827 Meclizine HCl 25 Mg Tablet, 25 MG PO Q8H Prescribed by: MARGA BEAR on 09/22/20 1114 Meclizine HCl 25 Mg Tablet, 25 MG PO Q6H PRN for dizziness Prescribed by: BROOK WEAVER on 10/15/20 1059 Naproxen 500 Mg Tablet.dr, 500 MG PO BID Prescribed by: ISIDRO ESQUEDA on 10/10/202327 Nitrofurantoin Monohyd/M-Cryst 100 Mg Capsule, 1 TAB PO BID Prescribed by: ISIDRO ESQUEDA on 10/10/202327 Ondansetron 4 Mg Tab.rapdis, 4 MG PO Q4H Prescribed by: ISIDRO ESQUEDA on 10/10/202327 Sulfamethoxazole/Trimethoprim 1 Each Tablet, 1 EACH PO BID Prescribed by: KYLE MON on 02/28/20 231 Patient Home Medication List Home Medication List Reviewed: Yes Review of Systems Review of Systems Constitutional: see HPI EENTM: blurred vision Respiratory: no symptoms reported Cardiovascular: no symptoms reported Gastrointestinal: nausea Genitourinary: no symptoms reported Musculoskeletal: no symptoms reported Skin: no symptoms reported Psychiatric/Neurological: Paresthesia, Weakness, Other (dizziness) All Other Systems Reviewed Negative Unless Noted: Yes Past Mlqnirm-Kcdbcv-Xsbmlj Hx Patient Social History Alcohol Use: Denies Use Drug of Choice: DENIES Smoking Status: Former Smoker Type Used: Cigarettes Former Smoker, Quit: Mar 22, 2016 2nd Hand Smoke Exposure: No Recent Infectious Disease Expo: No Recent Hopitalizations: No Immunizations Up To Date Tetanus Booster (TDap): Unknown PED Vaccines UTD: Yes Seasonal Allergies Seasonal Allergies: No Past Medical History Surgeries: Yes (ganglion cyst on L wrist ) Appendectomy, Gallbladder, Orthopedic Respiratory: No Cardiac: Yes High Cholesterol, Hypertension Neurological: Yes Headaches /Migraines Reproductive Disorders: Yes Female Reproductive Disorders: Menstrual Problems Genitourinary: No Gastrointestinal: Yes (ANAL FISSURE; CHOLECYSTECTOMY 2018) Gastroesophageal Reflux, Hemorrhoids, Polyps, Gall Bladder Disease, Irritable Bowel Musculoskeletal: Yes (LEFT WRIST GANGLION CYST REMOVED) Endocrine: No HEENT: Yes (DENTAL CARIES) Cancer: No Psychosocial: Yes Anxiety, Depression Integumentary: No Recent Skin Changes Blood Disorders: No Adverse Reaction/Blood Tranf: No Family Medical History Patient reports no known family medical history. No Pertinent Family Hx SOCIAL HISTORY: -ETOH -DRUGS -SMOKING PAST SURGICAL HISTORY: -CHOLECYSTECTOMY 04/01/[address] MCKEON -COLONOSCOPY/POLYPECTOMY O BY DR. MCKEON -EGD 03/09/[address] MCKEON -LEFT WRIST GANGLION CHST BY DR. MCKEON 2014 -APPENDECTOMY Physical Exam Vital Signs Vital Signs - First Documented 10/15/20 09:30 Temp 36.6 Pulse 84 Resp 16 B/P (MAP) 146/107 (120) Pulse Ox 97 O2 Delivery Room Air Capillary Refill : Less Than 3 Seconds Height, Weight, BMI Height: 5'4.00" Weight: 255lbs. 0oz. [id number]; 40.00 BMI Method:Stated General Appearance: No Apparent Distress, WD/WN Eyes: Bilateral Eye Normal Inspection, Bilateral Eye PERRL, Bilateral Eye EOMI, Bilateral Eye Other (fatiguable nystagmus bilaterally) HEENT: PERRL/EOMI, Normal ENT Inspection Neck: Normal Inspection, Non Tender, Supple Respiratory: Lungs Clear, Normal Breath Sounds, No Accessory Muscle Use, No Respiratory Distress Cardiovascular: Regular Rate, Rhythm Gastrointestinal: Non Tender, Soft Extremity: Normal Capillary Refill, Normal Inspection, Normal Range of Motion, No Calf Tenderness, No Pedal Edema Neurologic/Psychiatric: Alert, Oriented x3, No Motor/Sensory Deficits, Normal Mood/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, 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 as Tested; No Abnormal Cerebellar Tests, No Abnormal 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-XII, No Depressed Affect, No EOM Palsy, No Facial Droop, No Nikhil r Weakness, No Sensory Deficit Skin: Normal Color, Warm/Dry Progress/Results/Core Measures Suspected Sepsis Recent Fever Within 48 Hours: No Infection Criteria Present: None New/Unexplained Altered Menta: No Sepsis Screen: No Definite Risk SIRS Temperature: Pulse: 84 Respiratory Rate: 16 Blood Pressure 146 /107 Mean: 120 Laboratory Tests 10/15/20 10:41: Creatinine 0.72 Results/Orders Lab Results Laboratory Tests Test 10/15/20 10:41 Range/Units Sodium Level 137 135-145 MMOL/L Potassium Level 4.1 3.6-5.0 MMOL/L Chloride Level 102 98-107 MMOL/L Carbon Dioxide Level 25 21-32 MMOL/L Anion Gap 10 5-14 MMOL/L Blood Urea Nitrogen 9 7-18 MG/DL Creatinine 0.72 0.60-1.30 MG/DL Estimat Glomerular Filtration Rate > 60 BUN/Creatinine Ratio 13 Glucose Level 108 H 70-105 MG/DL Calcium Level 9.1 8.5-10.1 MG/DL Thyroid Stimulating Hormone (TSH) 2.43 0.35-4.94 UIU/ML Serum Test, Qualitative NEGATIVE NEGATIVE My Orders Orders - BROOK WEAVER MD Hcg,Qualitative Serum (10/15/20 10:00) Thyroid Stimulating Hormone (10/15/20 10:00) Basic Metabolic Panel (10/15/20 10:00) Vital Signs/I&O 10/15/20 09:30 Temp 36.6 Pulse 84 Resp 16 B/P (MAP) 146/107 (120) Pulse Ox 97 O2 Delivery Room Air Capillary Refill : Less Than 3 Seconds Blood Pressure Mean: 120 Progress Note : Time: 10:33 Progress Note Patient seen and evaluated by me, 29-year-old female with symptoms of dizziness, weakness, slight blurry vision, malaise. These are episodic in nature. Evaluation today includes a serum test TSH and serum chemistry. Patient does have a primary care provider. I have strongly recommended that she keep her follow-up with him. I am going to represcribe her meclizine to take when she has the symptoms. Patient's vital signs are stable. She has no clinical or objective findings to warrant further studies from the emergency department at this time. Neurologic exam is unremarkable. All questions are sought and answered. Patient serum chemistry, TSH and test are all negative. No concerns for needing further evaluation. We will send her home with meclizine today. All questions are sought and answered. Patient is stable for discharge. Departure Impression Primary Impression: Vertigo Disposition: 01 HOME, SELF-CARE Condition: Stable Departure-Patient Inst. Referrals: KIARA MAO MD (PCP/Family) Primary Care Physician Patient Instructions: Vertigo (a Type of Dizziness) (DC) Add. Discharge Instructions: Please call your primary care physician's office for a follow-up appointment. Use the meclizine 1 pill every 6 hours as needed for dizzy spells. Return to the emergency room for any worsening symptoms especially associated with fever, shortness of breath vomiting or other emergent concerns. Scripts Meclizine HCl (Meclizine HCl) 25 Mg Tablet 25 MG PO Q6H PRN for dizziness, #20 TAB Prov: BROOK WEAVER MD 10/15/20 Work/School Note: Work Release Form Date Seen in the Emergency Department: Oct 15, 2020 Return to Work: Oct 16, 2020 Restrictions: No Restrictions BROOK WEAVER MD Oct 15, 2020 10:33
[2020-10-15] MEDS ORDERED: MECL-149 PO (10:59)
[2020-10-15 11:11] LABS: BUN/CREATININE RATIO 13; CALCIUM 9.1 MG/DL (8.5-10.1); CARBON DIOXIDE 25 MMOL/L (21-32); CHLORIDE 102 MMOL/L (98-107); CREATININE SERUM 0.72 MG/DL (0.60-1.30); GFR ESTIMATED > 60; GLUCOSE 108 MG/DL (70-105); POTASSIUM 4.1 MMOL/L (3.6-5.0); SODIUM 137 MMOL/L (135-145)
[2020-10-15 11:51] VITALS: BP 146/107
== END 2020-10-15 11:51 | disposition home or self-care (01) ==
LOC: EDUNIT# 09:25 → ER 09:27
DX: R42 Dizziness and giddiness (principal); I10 Essential (primary) hypertension; Z87.891 Personal history of nicotine dependence
CPT/HCPCS: 36415; 80048; 84443; 84703; 99283

== ENCOUNTER 2021-01-28 11:58 | Emergency (ER) | payer MEDICAID ==
[~2021-01-28] VITALS: Ht 165.1 cm; Wt 98.4 kg
[~2021-01-28 11:58] MED LIST changes: -SULF1TAB35 PO; +SULF1TAB38 PO
[2021-01-28] MEDS ORDERED: NS IV 1000 ML 1,000 ML IV SCH (12:45)
[2021-01-28] MEDS ORDERED: IBUPROFEN 800 MG (MOTRIN) TAB PO STA (12:55)
--- NOTE | 2021-01-28 12:56 | ED Cough/URI ---
General Chief Complaint: Fever-Adult/Adol Stated Complaint: SORE MUSCLES;HEADACHE Nursing Triage Note: PT AMB TO RM 9 W C/O MUSCLE ACHES, WEIR, AND FEVER SINCE YESTERDAY MORNING. DENIES N/V/D, SOB, AND CP. (GRANT TALLEY) History of Present Illness Date Seen by Provider: Jan 28, 2021 Time Seen by Provider: 12:00 Initial Comments 30-year-old female presents with myalgias, headache and intermittent fever to 100 degrees since yesterday. She reports no known Covid exposure at work, she has not received the vaccine. She denies any respiratory distress. She has not lost her taste or smell. Timing/Duration: yesterday Severity/Quality: no cough Prior Episodes/Possible Cause: no prior episodes Associated Symptoms: fever/chills, headache, muscle aches (GRANT TALLEY) Allergies and Home Medications Allergies Coded Allergies: No Known Drug Allergies (Unverified , 08/05/19) Home Medications Docusate Sodium 100 Mg Capsule, 100 MG PO BID Prescribed by: NALINI MCKEON on 08/30/19 0827 Meclizine HCl 25 Mg Tablet, 25 MG PO Q8H Prescribed by: MARGA BEAR on 09/22/20 1114 Meclizine HCl 25 Mg Tablet, 25 MG PO Q6H PRN for dizziness Prescribed by: BROOK WEAVER on 10/15/20 1059 Naproxen 500 Mg Tablet.dr, 500 MG PO BID Prescribed by: ISIDRO ESQUEDA on 10/10/20 2328 Nitrofurantoin Macrocrystal 100 Mg Capsule, 100 MG PO BID Prescribed by: GRANT TALLEY on 01/28/21 1355 Nitrofurantoin Monohyd/M-Cryst 100 Mg Capsule, 1 TAB PO BID Prescribed by: ISIDRO ESQUEDA on 10/10/20 2328 Ondansetron 4 Mg Tab.rapdis, 4 MG PO Q4H Prescribed by: ISIDRO ESQUEDA on 10/10/20 2328 Sulfamethoxazole/Trimethoprim 1 Each Tablet, 1 EACH PO BID Prescribed by: KYLE MON on 02/28/20 2319 Patient Home Medication List Home Medication List Reviewed: Yes (GRANT TALLEY) Review of Systems Review of Systems Constitutional: see HPI, fever EENTM: see HPI Respiratory: no symptoms reported, see HPI Cardiovascular: no symptoms reported, see HPI Gastrointestinal: no symptoms reported : No Musculoskeletal: muscle cramps (GRANT TALLEY) All Other Systems Reviewed Negative Unless Noted: Yes (GRANT TALLEY) Past Rdqrhro-Vhnwqj-Cmfigs Hx Patient Social History Tobacco Use?: Yes Tobacco type used: Cigarettes Smoking Status: Current Everyday Smoker Substance use?: No Alcohol Use?: No Pt feels they are or have been: No (GRANT TALLEY KELLEY) Immunizations Up To Date Tetanus Booster (TDap): Unknown PED Vaccines UTD: Yes (GERRIGRANT Calderon) Seasonal Allergies Seasonal Allergies: No (GERRIGRANT Calderon) Past Medical History Surgeries: Yes (ganglion cyst on L wrist ) Appendectomy, Gallbladder, Orthopedic Respiratory: No Cardiac: Yes High Cholesterol, Hypertension Neurological: Yes Headaches /Migraines Last Menstrual Period: Jan 14, 2021 Reproductive Disorders: Yes Female Reproductive Disorders: Menstrual Problems Genitourinary: No Gastrointestinal: Yes (ANAL FISSURE; CHOLECYSTECTOMY 2017) Gastroesophageal Reflux, Hemorrhoids, Polyps, Gall Bladder Disease, Irritable Bowel Musculoskeletal: Yes (LEFT WRIST GANGLION CYST REMOVED) Endocrine: No HEENT: Yes (DENTAL CARIES) Cancer: No Psychosocial: Yes Anxiety, Depression Integumentary: No Recent Skin Changes Blood Disorders: No Adverse Reaction/Blood Tranf: No (GRANT TALLEY KELLEY) Family Medical History Reviewed Nursing Family Hx (GRANT TALLEY) Patient reports no known family medical history. No Pertinent Family Hx SOCIAL HISTORY: -ETOH -DRUGS -SMOKING PAST SURGICAL HISTORY: -CHOLECYSTECTOMY 04/01/[address] MCKEON -COLONOSCOPY/POLYPECTOMY O BY DR. MCKEON -EGD 03/09/[address] MCKEON -LEFT WRIST GANGLION CHST BY DR. MCKEON 2014 -APPENDECTOMY (GERRIGRANT BENSON) Physical Exam Vital Signs - First Documented 01/28/21 12:00 Temp 38.1 Pulse 103 Resp 18 B/P (MAP) 131/89 (103) Pulse Ox 97 O2 Delivery Room Air (KYLE ARCE MD) Capillary Refill : Less Than 3 Seconds (GRANT TALLEY KELLEY) Height: 5'4.00" Weight: 255lbs. 0oz. [id number]; 36.00 BMI Method:Stated General Appearance: WD/WN, no apparent distress Eyes: Bilateral Eye Normal Inspection, Bilateral Eye PERRL, Bilateral Eye EOMI HEENT: PERRL/EOMI, normal ENT inspection, TMs normal, pharynx normal Neck: non-tender, full range of motion, supple, normal inspection Respiratory: chest non-tender, lungs clear, normal breath sounds, no respiratory distress Cardiovascular: normal peripheral pulses, regular rate, rhythm Gastrointestinal: normal bowel sounds, non tender, soft Extremities: normal range of motion, non-tender, normal inspection Neurologic/Psychiatric: no motor/sensory deficits, alert, normal mood/affect, oriented x 3 Skin: normal color, warm/dry (GRANT TALLEY) Progress/Results/Core Measures Suspected Sepsis SIRS Temperature: Pulse: 103 Respiratory Rate: 18 Laboratory Tests 01/28/21 13:00: White Blood Count 4.4 Blood Pressure 131 /89 Mean: 103 Laboratory Tests 01/28/21 13:00: Creatinine 0.73, INR Comment 1.0, Platelet Count 194, Total Bilirubin 0.4 (GRANT TALLEY) Results/Orders Lab Results Laboratory Tests Test 01/28/21 12:06 01/28/21 13:00 01/28/21 13:05 Range/Units Influenza Type A (RT-PCR) Not Detected Not Detecte Influenza Type B (RT-PCR) Not Detected Not Detecte SARS-CoV-2 RNA (RT-PCR) Detected H Not Detecte White Blood Count 4.4 4.3-11.0 10^3/uL Red Blood Count 4.52 3.80-5.11 10^6/uL Hemoglobin 13.6 11.5-16.0 g/dL Hematocrit 40 35-52 % Mean Corpuscular Volume 89 80-99 fL Mean Corpuscular Hemoglobin 30 25-34 pg Mean Corpuscular Hemoglobin Concent 34 32-36 g/dL Red Cell Distribution Width 13.8 10.0-14.5 % Platelet Count 194 130-400 10^3/uL Mean Platelet Volume 9.6 9.0-12.2 fL Immature Granulocyte % (Auto) 1 % Neutrophils (%) (Auto) 72 42-75 % Lymphocytes (%) (Auto) 13 12-44 % Monocytes (%) (Auto) 11 0-12 % Eosinophils (%) (Auto) 2 0-10 % Basophils (%) (Auto) 1 0-10 % Neutrophils # (Auto) 3.1 1.8-7.8 10^3/uL Lymphocytes # (Auto) 0.6 L 1.0-4.0 10^3/uL Monocytes # (Auto) 0.5 0.0-1.0 10^3/uL Eosinophils # (Auto) 0.1 0.0-0.3 10^3/uL Basophils # (Auto) 0.0 0.0-0.1 10^3/uL Immature Granulocyte # (Auto) 0.0 0.0-0.1 10^3/uL Prothrombin Time 14.0 12.2-14.7 SEC INR Comment 1.0 0.8-1.4 Activated Partial Thromboplast Time 31 24-35 SEC Sodium Level 136 135-145 MMOL/L Potassium Level 3.8 3.6-5.0 MMOL/L Chloride Level 102 98-107 MMOL/L Carbon Dioxide Level 23 21-32 MMOL/L Anion Gap 11 5-14 MMOL/L Blood Urea Nitrogen 9 7-18 MG/DL Creatinine 0.73 0.60-1.30 MG/DL Estimat Glomerular Filtration Rate 94 BUN/Creatinine Ratio 12 Glucose Level 95 70-105 MG/DL Calcium Level 8.9 8.5-10.1 MG/DL Corrected Calcium 8.7 8.5-10.1 MG/DL Total Bilirubin 0.4 0.1-1.0 MG/DL Aspartate Amino Transf (AST/SGOT) 15 5-34 U/L Alanine Aminotransferase (ALT/SGPT) 12 0-55 U/L Alkaline Phosphatase 71 40-136 U/L Total Protein 7.6 6.4-8.2 GM/DL Albumin 4.3 3.2-4.5 GM/DL Urine Color YELLOW Urine Clarity CLEAR Urine pH 5.5 5-9 Urine Specific [place] >=1.030 1.016-1.022 Urine Protein NEGATIVE NEGATIVE Urine Glucose (UA) NEGATIVE NEGATIVE Urine Ketones NEGATIVE NEGATIVE Urine Nitrite NEGATIVE NEGATIVE Urine Bilirubin NEGATIVE NEGATIVE Urine Urobilinogen 0.2 < = 1.0 MG/DL Urine Leukocyte Esterase NEGATIVE NEGATIVE Urine RBC (Auto) NEGATIVE NEGATIVE Urine RBC NONE /HPF Urine WBC 5-10 H /HPF Urine Squamous Epithelial Cells 10-25 H /HPF Urine Crystals NONE /LPF Urine Bacteria MODERATE H /HPF Urine Casts NONE /LPF Urine Mucus SMALL H /LPF Urine Culture Indicated YES (KYLE ARCE MD) Micro Results Microbiology 01/28/21 Urine Culture - Final, Complete 3 or more isolates (KYLE ARCE MD) My Orders Orders - KYLE ARCE MD Covid 19 Inhouse Test (01/28/21 12:03) Influenza A And B By Pcr (01/28/21 12:03) (KYLE ARCE MD) Vital Signs/I&O 01/28/21 01/28/21 01/28/21 12:00 13:04 13:59 Temp 38.1 38.0 38.0 Pulse 103 103 Resp 18 18 B/P (MAP) 131/89 (103) 131/89 (103) Pulse Ox 97 97 O2 Delivery Room Air (KYLE ARCE MD) Vital Signs/I&O Capillary Refill : Less Than 3 Seconds (GRANT TALLEY) Blood Pressure Mean: 103 Progress Note : Time: 12:00 Progress Note Patient seen and evaluated, will obtain Covid and influenza swab. 1250 patient Covid positive. Will obtain additional labs and chest x-ray. Will give normal saline 1 L per IV. 1350 patient denies any further complaints. Chest x-ray and labs all essentially normal. Discharge instructions and return precautions reviewed with her. (GRANT TALLEY) Diagnostic Imaging Diagonstic Imaging: Xray Plain Films/CT/US/NM/MRI: chest Comments NAME: AZARMARY KAY A MED REC#: [id number] PT STATUS: REG ER : 1990 PHYSICIAN: GRANT TALLEY ADMIT DATE: 01/28/21/ER Draft Date of Exam:01/28/21 CHEST 1 VIEW, AP/PA ONLY Indication: COVID patient. Compared: 10/10/2020 Findings: The lungs are clear. There is no failure, effusion or pneumothorax. Impression: No acute-appearing abnormality. Dictated on workstation # [id number] Dict: 01/28/21 1336 Trans: 01/28/21 1338 CVB [id number] Interpreted by: DWIGHT FRANCOIS Electronically signed by: (GRANT TALLEY) Departure Impression Primary Impression: COVID-19 Additional Impression: UTI (urinary tract infection) Qualified Codes: N30.00 - Acute cystitis without hematuria Disposition: HOME, SELF-CARE Condition: Stable Departure-Patient Inst. Decision time for Depature: 13:50 (GRANT TALLEY) Referrals: KIARA MAO MD (PCP/Family) Primary Care Physician Patient Instructions: COVID-19 (DC), Urinary Tract Infection, Adult (DC) Add. Discharge Instructions: You have Covid, you need to remain at home, on isolation, based on what the health department will provide to you. Please notify your employer and any close contacts over the last 48 hours. The health department will direct their quarantine. You need to walk in your home for 5 to 10 minutes every 2 hours, take deep breaths and cough. Take aspirin 81 mg once a day. Take an immune vitamin supplement: Vit D, C, and Zinc. Sleep on your stomach. Drink extra water, 16 oz every 2 hours, while awake. Alternate between Tylenol 650 mg and ibuprofen 600 mg every 4 hours for fever. Take antibiotics as directed for your urinary tract infection. Call your primary care provider, for concerns or worsening symptoms. Return to the emergency department for new, urgent healthcare needs. All discharge instructions reviewed with patient and/or family. Voiced understanding. Scripts Nitrofurantoin Macrocrystal (Nitrofurantoin) 100 Mg Capsule 100 MG PO BID, #14 CAP 0 Refills Prov: GRANT TALLEY 01/28/21 ATTENDING PHYSICIAN NOTE: I was physically present as attending physician in the emergency department during the care of this patient, but I was not directly involved in the decision making or delivery of care for this patient. (KYLE ARCE MD) GRANT TALLEY Jan 28, 2021 12:56 KYLE ARCE MD Jan 29, 2021 19:42
[2021-01-28] MEDS ORDERED: IBUPROFEN 800 MG (MOTRIN) TAB PO ONE (12:58)
[2021-01-28 13:15] LABS: BASOPHILS % (AUTO) 1 % (0-10); EOSINOPHILS # (AUTO) 0.1 10^3/uL (0.0-0.3); EOSINOPHILS % (AUTO) 2 % (0-10); HEMATOCRIT 40 % (35-52); HEMOGLOBIN 13.6 g/dL (11.5-16.0); LYMPHOCYTES # (AUTO) 0.6 10^3/uL (1.0-4.0); LYMPHOCYTES % (AUTO) 13 % (12-44); MEAN CORPUSCULAR HEMOGLOBIN 30 pg (25-34); MEAN CORPUSCULAR HGB CONC 34 g/dL (32-36); MEAN CORPUSCULAR VOLUME 89 fL (80-99); MEAN PLATELET VOLUME 9.6 fL (9.0-12.2); MONOCYTES # (AUTO) 0.5 10^3/uL (0.0-1.0); MONOCYTES % (AUTO) 11 % (0-12); NEUTROPHILS # (AUTO) 3.1 10^3/uL (1.8-7.8); NEUTROPHILS % (AUTO) 72 % (42-75); PLATELET COUNT 194 10^3/uL (130-400); WHITE BLOOD COUNT 4.4 10^3/uL (4.3-11.0)
[2021-01-28 13:16] LABS: BILIRUBIN,URINE NEGATIVE (NEGATIVE); CLARITY,URINE CLEAR; COLOR,URINE YELLOW; GLUCOSE, URINE (UA) NEGATIVE (NEGATIVE); KETONES,URINE NEGATIVE (NEGATIVE); LEUKOCYTE ESTERASE ,URINE NEGATIVE (NEGATIVE); NITRITE,URINE NEGATIVE (NEGATIVE); PH,URINE 5.5 (5-9); PROTEIN,URINE NEGATIVE (NEGATIVE)
[2021-01-28 13:24] LABS: ALBUMIN 4.3 GM/DL (3.2-4.5); POTASSIUM 3.8 MMOL/L (3.6-5.0)
[2021-01-28 13:25] LABS: CALCIUM 8.9 MG/DL (8.5-10.1)
[2021-01-28 13:26] LABS: TOTAL PROTEIN 7.6 GM/DL (6.4-8.2)
[2021-01-28 13:28] LABS: BILIRUBIN,TOTAL 0.4 MG/DL (0.1-1.0)
[2021-01-28 13:30] LABS: CREATININE SERUM 0.73 MG/DL (0.60-1.30)
[2021-01-28 13:31] LABS: BACTERIA,URINE MODERATE /HPF
--- NOTE | 2021-01-28 13:38 | Diagnostic Imaging Report ---
Indication: COVID patient. Compared: 10/10/2020 Findings: The lungs are clear. There is no failure, effusion or pneumothorax. Impression: No acute-appearing abnormality. Dictated by: Dictated on workstation # [id number]
[2021-01-28] MEDS ORDERED: NITR100C PO (13:55)
[2021-01-28 13:59] VITALS: BP 131/89
== END 2021-01-28 14:30 | disposition home or self-care (01) ==
LOC: EDUNIT# 11:58 → ER 11:59
DX: U07.1 COVID-19 (principal); N39.0 Urinary tract infection, site not specified; I10 Essential (primary) hypertension; F17.210 Nicotine dependence, cigarettes, uncomplicated
CPT/HCPCS: 36415; 71045; 80053; 81000; 84703; 85025; 85610; 85730; 87088; 87636

== ENCOUNTER → 2021-04-09 | Outpatient (CLI) | payer MEDICAID ==
[~2021-04-09] MED LIST changes: -DOXY100C2; +DOXY100C5; +NITR100C PO; -PSEU-137 PO; +PSEU-182 PO
--- NOTE | 2021-04-09 13:20 | Diagnostic Imaging Report ---
PROCEDURE: US OB SINGLE FETUS <14 WKS. TECHNIQUE: Multiple real-time grayscale images were obtained over the gravid uterus in various projections. INDICATION: Check dates EXAMINATION: OB sonogram less than /14 weeks 04/09/2021 FINDINGS: The uterus measures 11.9 cm in greatest dimension. It contains an intrauterine gestational sac with a pole and yolk sac noted. Measurements today correspond with an 8 week 3 day . Estimated date of delivery 11/16/2021. heart rate 160 bpm. A tiny hypoechoic area adjacent to the gestational sac likely a small perigestational bleed. Right ovary unremarkable. Left ovary is not seen. No adnexal masses appreciated. IMPRESSION: 1. Single live intrauterine gestation currently measuring 8 weeks 3 days. Small adjacent subchorionic hemorrhage noted. Dictated by: Dictated on workstation # [id number]
== END ==
LOC: RAD 11:58
PROVIDERS: ATTEND Family Medicine
DX: Z34.01 Encounter for supervision of normal first pregnancy, first trimester (principal); Z3A.08 8 weeks gestation of pregnancy
CPT/HCPCS: 76801

== ENCOUNTER → 2021-07-22 | Outpatient (CLI) | payer MEDICAID ==
[~2021-07-22] MED LIST changes: +CLIN-144 PO; -CLIN300C12 PO
--- NOTE | 2021-07-22 16:31 | Diagnostic Imaging Report ---
INDICATION: patient, survey. TECHNIQUE: Multiple Real-time grayscale images were obtained over the gravid uterus. COMPARISON: 04/09/2021. FINDINGS: A single live intrauterine fetus is seen measuring 23 weeks 1 day by composite measurements. There has been normal interval growth compared to the prior study. heart rate is 147 BPM. The fetus is in cephalic presentation. The amniotic fluid is qualitatively normal. There is no evidence of placenta previa. The placenta is fundal, anterior, and grade 1. There is no evidence of subchorionic bleed. The survey showed normal-appearing kidneys and bladder. A normal-appearing stomach was seen. Normal-appearing intracranial ventricles were seen. Four-chamber heart view was unremarkable. Three-vessel cord and cord insertion appear normal. Views of the spine were unremarkable. Maternal adnexa could not be visualized. Biometrical measurements are as follows: Biparietal 5.78 cm, age 23 weeks 5 days. Head circumference 21.27 cm, age 23 weeks 3 days. Abdominal circumference 17.86 cm, age 22 weeks 6 days. Femur length 3.85 cm, age 22 weeks 3 days. Sonographic estimate age: 23 weeks 1 days. Sonographic estimated date of delivery: 11/17/2021. Estimated Weight: 525 gm (+/- 77 gm). LMP percentile: 14%. heart rate: 147 beats per minute. number: 1 of 1. IMPRESSION: Single live intrauterine fetus measuring 23 weeks 1 day in size with no detectable abnormality. There has been normal interval growth compared to the prior study. Dictated by: Dictated on workstation # [id number]
== END ==
LOC: RAD 10:00
PROVIDERS: ATTEND Family Medicine
DX: Z34.92 Encounter for supervision of normal pregnancy, unspecified, second trimester (principal); Z3A.23 23 weeks gestation of pregnancy
CPT/HCPCS: 76805

== ENCOUNTER 2021-09-22 14:13 | Outpatient (CLI) | payer MEDICAID ==
[2021-09-22] VITALS (7 sets, daily range): BP systolic 108–135; BP diastolic 58–72
[~2021-09-22] VITALS: Ht 162.6 cm; Wt 124.6 kg
[2021-09-22 15:28] LABS: BASOPHILS % (AUTO) 0 % (0-10); EOSINOPHILS # (AUTO) 0.1 10^3/uL (0.0-0.3); EOSINOPHILS % (AUTO) 1 % (0-10); HEMATOCRIT 33 % (35-52); HEMOGLOBIN 11.4 g/dL (11.5-16.0); LYMPHOCYTES % (AUTO) 21 % (12-44); MEAN CORPUSCULAR HEMOGLOBIN 30 pg (25-34); MEAN CORPUSCULAR HGB CONC 35 g/dL (32-36); MEAN CORPUSCULAR VOLUME 87 fL (80-99); MEAN PLATELET VOLUME 10.3 fL (9.0-12.2); MONOCYTES # (AUTO) 0.5 X 10^3 (0.0-1.0); MONOCYTES % (AUTO) 5 % (0-12); NEUTROPHILS # (AUTO) 6.9 X 10^3 (1.8-7.8); NEUTROPHILS % (AUTO) 71 % (42-75); PLATELET COUNT 188 10^3/uL (130-400); WHITE BLOOD COUNT 9.7 10^3/uL (4.3-11.0)
[2021-09-22 15:36] LABS: BILIRUBIN,URINE NEGATIVE (NEGATIVE); CLARITY,URINE SL CLOUDY; COLOR,URINE YELLOW; GLUCOSE, URINE (UA) 2+ (NEGATIVE); KETONES,URINE TRACE (NEGATIVE); LEUKOCYTE ESTERASE ,URINE NEGATIVE (NEGATIVE); NITRITE,URINE NEGATIVE (NEGATIVE); PROTEIN,URINE TRACE (NEGATIVE)
[2021-09-22 15:44] LABS: BACTERIA,URINE LARGE /HPF; CALCIUM OXALATE CRYSTALS,UR FEW /LPF
[2021-09-22 15:47] LABS: AMPHETAMINE SCREEN, URINE NEGATIVE (NEGATIVE); BARBITURATE SCREEN URINE NEGATIVE (NEGATIVE); BENZODIAZEPINES SCREEN URINE NEGATIVE (NEGATIVE); CANNABINOID SCREEN, URINE NEGATIVE (NEGATIVE); COCAINE SCREEN URINE NEGATIVE (NEGATIVE); METHADONE STAT NEGATIVE (NEGATIVE); METHAMPHETAMINE SCREEN URINE S NEGATIVE (NEGATIVE); OPIATE SCREEN URINE NEGATIVE (NEGATIVE); OXYCODONE STAT NEGATIVE (NEGATIVE); PROPOXYPHENE STAT NEGATIVE (NEGATIVE); TRICYCLIC ANTIDEPRESSANTS SCRE NEGATIVE (NEGATIVE)
[2021-09-22 15:47] LABS: ALBUMIN 3.2 GM/DL (3.2-4.5); BILIRUBIN,TOTAL 0.2 MG/DL (0.1-1.0); CALCIUM 8.6 MG/DL (8.5-10.1); CREATININE SERUM 0.53 MG/DL (0.60-1.30); POTASSIUM 3.6 MMOL/L (3.6-5.0); TOTAL PROTEIN 6.5 GM/DL (6.4-8.2); URIC ACID 2.4 MG/DL (2.6-7.2)
[2021-09-22 15:52] LABS: URINE CREATININE FOR RATIO 212 MG/DL (30-125); URINE PROTEIN FOR RATIO ONLY 53 MG/DL (6-12)
[2021-09-22] MEDS ORDERED: LORA10TA7 PO (16:01)
[2021-09-22] MEDS ORDERED: AMOX500T2 PO (16:01)
--- NOTE | 2021-09-23 08:25 | Physician Query-Final Dx ---
Clinic Account Progress/Dx Physician Query: Please give diagnosis Please include # weeks gestation Date of Service Sep 22, 2021 at 14:13 MELLISSA,JunSep 23, 2021 08:25
== END 2021-09-22 16:21 | disposition home or self-care (01) ==
LOC: WSo 14:13 → LDRP 14:13 → WSo 16:21
PROVIDERS: ATTEND Family Medicine
DX: O16.3 Unspecified maternal hypertension, third trimester (principal); Z3A.32 32 weeks gestation of pregnancy
CPT/HCPCS: 80053; 80306; 81000; 82570; 83615; 84156; 84550; 85025; 87088; G0463; 36415; 99213

== ENCOUNTER 2021-10-25 21:38 | Outpatient (CLI) | payer MEDICAID ==
[~2021-10-25] VITALS: Ht 162.6 cm; Wt 128.0 kg
[~2021-10-25 21:38] MED LIST changes: +AMOX500T2 PO; +LORA10TA7 PO
[2021-10-25 21:59] VITALS: BP 135/81
[2021-10-25 22:01] LABS: BILIRUBIN,URINE NEGATIVE (NEGATIVE); CLARITY,URINE SL CLOUDY; COLOR,URINE YELLOW; GLUCOSE, URINE (UA) 2+ (NEGATIVE); KETONES,URINE TRACE (NEGATIVE); LEUKOCYTE ESTERASE ,URINE NEGATIVE (NEGATIVE); NITRITE,URINE NEGATIVE (NEGATIVE); PROTEIN,URINE 1+ (NEGATIVE)
[2021-10-25 22:24] LABS: BACTERIA,URINE LARGE /HPF; CALCIUM OXALATE CRYSTALS,UR RARE /LPF
[2021-10-25 22:27] VITALS: BP 135/81
--- NOTE | 2021-10-28 08:43 | Physician Query-Final Dx ---
Clinic Account Progress/Dx Physician Query: Please give diagnosis Please include # weeks gestation Date of Service October 25, 2021 at 21:38 ,JunOctober 28, 2021 08:43
== END 2021-10-25 22:38 | disposition home or self-care (01) ==
LOC: WSo 21:38 → LDRP 21:38 → WSo 22:38
PROVIDERS: ATTEND Family Medicine
DX: O47.1 False labor at or after 37 completed weeks of gestation (principal); Z3A.37 37 weeks gestation of pregnancy
CPT/HCPCS: 81000; 87088; G0463; 99212

== ENCOUNTER 2021-11-04 10:05 | Outpatient (CLI) | payer MEDICAID ==
[~2021-11-04] VITALS: Ht 162.6 cm; Wt 129.2 kg
[2021-11-04 10:30] VITALS: BP 117/84
[2021-11-04 10:47] VITALS: BP 117/84
[2021-11-04 10:50] LABS: BASOPHILS % (AUTO) 0 % (0-10); EOSINOPHILS # (AUTO) 0.1 10^3/uL (0.0-0.3); EOSINOPHILS % (AUTO) 1 % (0-10); HEMATOCRIT 38 % (35-52); LYMPHOCYTES # (AUTO) 1.9 10^3/uL (1.0-4.0); LYMPHOCYTES % (AUTO) 17 % (12-44); MEAN CORPUSCULAR HEMOGLOBIN 29 pg (25-34); MEAN CORPUSCULAR HGB CONC 34 g/dL (32-36); MEAN CORPUSCULAR VOLUME 85 fL (80-99); MEAN PLATELET VOLUME 10.9 fL (9.0-12.2); MONOCYTES # (AUTO) 0.6 10^3/uL (0.0-1.0); MONOCYTES % (AUTO) 5 % (0-12); NEUTROPHILS # (AUTO) 8.4 10^3/uL (1.8-7.8); NEUTROPHILS % (AUTO) 75 % (42-75); PLATELET COUNT 187 10^3/uL (130-400); WHITE BLOOD COUNT 11.2 10^3/uL (4.3-11.0)
[2021-11-04 11:00] LABS: ALBUMIN 3.4 GM/DL (3.2-4.5)
[2021-11-04 11:01] LABS: POTASSIUM 3.8 MMOL/L (3.6-5.0)
[2021-11-04 11:02] LABS: CALCIUM 9.5 MG/DL (8.5-10.1)
[2021-11-04 11:03] LABS: TOTAL PROTEIN 7.1 GM/DL (6.4-8.2)
[2021-11-04 11:05] VITALS: BP 122/78
[2021-11-04 11:05] LABS: BILIRUBIN,TOTAL 0.3 MG/DL (0.1-1.0)
[2021-11-04 11:07] LABS: CREATININE SERUM 0.59 MG/DL (0.60-1.30)
[2021-11-04 11:12] LABS: BILIRUBIN,URINE 1+ (NEGATIVE); CLARITY,URINE SL CLOUDY; COLOR,URINE YELLOW; GLUCOSE, URINE (UA) 2+ (NEGATIVE); KETONES,URINE NEGATIVE (NEGATIVE); LEUKOCYTE ESTERASE ,URINE NEGATIVE (NEGATIVE); NITRITE,URINE NEGATIVE (NEGATIVE); PROTEIN,URINE 2+ (NEGATIVE)
[2021-11-04 11:15] VITALS: BP 117/84
[2021-11-04 11:28] LABS: BACTERIA,URINE FEW /HPF; RBC,URINE 0-2 /HPF; WBC,URINE 0-2 /HPF
[2021-11-04 11:29] LABS: AMORPHOUS SEDIMENT,UR FEW AMOR URATES /LPF; CALCIUM OXALATE CRYSTALS,UR MODERATE /LPF
--- NOTE | 2021-11-05 08:38 | Physician Query-Final Dx ---
Clinic Account Progress/Dx Physician Query: Please give diagnosis Please include # weeks gestation Date of Service November 04, 2021 at 10:05 ,JunNovember 05, 2021 08:38
== END 2021-11-04 12:45 | disposition home or self-care (01) ==
LOC: WSo 10:05 → LDRP 10:11 → WSo 12:45
PROVIDERS: ATTEND Family Medicine
DX: O13.9 Gestational [pregnancy-induced] hypertension without significant proteinuria, unspecified trimester (principal); Z3A.00 Weeks of gestation of pregnancy not specified
CPT/HCPCS: 80053; 81000; 82570; 84156; 85025; 87088; G0463; 36415; 99213

== ENCOUNTER 2021-11-06 05:21 | Inpatient (IN) | payer MEDICAID ==
[2021-11-06] VITALS (41 sets, daily range): BP systolic 105–162; BP diastolic 51–106
[~2021-11-06] VITALS: Ht 162.6 cm; Wt 130.0 kg
[2021-11-06] MEDS ORDERED: D5 LR IV SOLUTION 1,000 ML IV ONE (06:28)
[2021-11-06] MEDS ORDERED: MINERAL OIL 30 ML TOP PRN (06:30)
[2021-11-06] MEDS ORDERED: MEPIVACAINE (CARBOCAINE) 2% 50 ML VIAL INJ PRN (06:30)
[2021-11-06] MEDS: D5 LR IV SOLUTION 1,000 ML IV SCH ×2 (06:53→12:22)
[2021-11-06 07:07] LABS: BASOPHILS % (AUTO) 0 % (0-10); EOSINOPHILS # (AUTO) 0.1 10^3/uL (0.0-0.3); EOSINOPHILS % (AUTO) 1 % (0-10); HEMATOCRIT 37 % (35-52); HEMOGLOBIN 12.7 g/dL (11.5-16.0); LYMPHOCYTES # (AUTO) 1.9 10^3/uL (1.0-4.0); LYMPHOCYTES % (AUTO) 17 % (12-44); MEAN CORPUSCULAR HEMOGLOBIN 29 pg (25-34); MEAN CORPUSCULAR HGB CONC 34 g/dL (32-36); MEAN CORPUSCULAR VOLUME 85 fL (80-99); MEAN PLATELET VOLUME 10.7 fL (9.0-12.2); MONOCYTES # (AUTO) 0.5 10^3/uL (0.0-1.0); MONOCYTES % (AUTO) 5 % (0-12); NEUTROPHILS # (AUTO) 8.1 10^3/uL (1.8-7.8); NEUTROPHILS % (AUTO) 74 % (42-75); PLATELET COUNT 170 10^3/uL (130-400); WHITE BLOOD COUNT 10.8 10^3/uL (4.3-11.0)
[2021-11-06] MEDS ORDERED: fentaNYL 2 mcg/ml BUPIVA 0.125 100 ML ONE (08:04)
[2021-11-06] MEDS ORDERED: OXYTOCIN PRE-MIX DRIP 500 ML IV ONE (08:05)
[2021-11-06] MEDS ORDERED: OXYTOCIN PRE-MIX DRIP 500 ML IV SCH ×2 (08:30→13:45)
--- NOTE | 2021-11-06 08:40 | History & Physical-OB ---
OB - Chief Complaint & HPI Date/Time Date of Admission: Date of Admission: November 06, 2021 at 06:20 Date seen by a Provider: November 06, 2021 Time Seen by a Provider: 07:20 Chief Complaint/History OB-Reason for Admission/Chief: Rupture of Membranes Hx : 4 Hx Para: 3 Expected Date of Delivery: November 15, 2021 Gestational Age in Weeks: 38 Gestational Age in Days: 4 Admission Nurse Assessment Rev: Yes History of Labs GBS negative Allergies and Home Medications Allergies Coded Allergies: No Known Drug Allergies (Unverified , 08/05/19) Patient Home Medication List Home Medication List Reviewed: Yes Ibuprofen (Ibu) 600 Mg Tablet, 600 MG PO Q6HR Prescribed by: KIARA MAO on 11/07/21 1547 Loratadine (Loratadine) 10 Mg Tablet, 10 MG PO DAILY, (Reported) Entered as Reported by: HUONG SHAW on 09/22/21 1601 Last Action: Continued OB - History Hx of Present Care: Yes Ultrasounds: Normal mid trimester US Obstetrical Complications: None, Other Medical Complications: None Obstetrical History Hx : 4 Hx Para: 3 Hx Termination: No Hx Multiple Gestation: No Hx Stillbirth: No Hx Complication: No Hx Induced Hypertens: No Hx Maternal Gestational Diabet: Yes (pt. denies, states borderline w/1st del) Delivery History Hx Dystocia: No Hx Large For Gestational Age I: Yes Hx Small for Gestational Age I: No Hx Section: No Hx Vaginal Delivery Post C-Sec: No Hx Blood Disorders: No Adverse Rxn to Tranfusion: No Patient Past Medical History No chronic medical problems Social History/Family History Recreational Drug Use: No 2nd Hand Smoke Exposure: No Immunizations Hepatitis A: Yes Hepatitis B: Yes Tetanus Booster (TDap): Unknown OB - Admission Exam Physical Exam Vitals: Vital Signs 11/06/21 05:49 B/P (MAP) 162/87 (112) HEENT: Moist Membranes Heart: Rhythm Normal Lungs: Clear Abdomen: Gravid Cervical Dilatation: 2cm Effacement: 50% Station: -3 Membranes: Ruptured Amniotic Fluid: Clear Heart Rate: 140's Accelerations: Accelerations Present Short Term Variability: Present Intensity: Mild Labs Laboratory Tests Test 11/06/21 05:40 11/06/21 06:50 Range/Units Membranes Rupture POSITIVE White Blood Count 10.8 4.3-11.0 10^3/uL Red Blood Count 4.33 3.80-5.11 10^6/uL Hemoglobin 12.7 11.5-16.0 g/dL Hematocrit 37 35-52 % Mean Corpuscular Volume 85 80-99 fL Mean Corpuscular Hemoglobin 29 25-34 pg Mean Corpuscular Hemoglobin Concent 34 32-36 g/dL Red Cell Distribution Width 15.0 H 10.0-14.5 % Platelet Count 170 130-400 10^3/uL Mean Platelet Volume 10.7 9.0-12.2 fL Immature Granulocyte % (Auto) 2 % Neutrophils (%) (Auto) 74 42-75 % Lymphocytes (%) (Auto) 17 12-44 % Monocytes (%) (Auto) 5 0-12 % Eosinophils (%) (Auto) 1 0-10 % Basophils (%) (Auto) 0 0-10 % Neutrophils # (Auto) 8.1 H 1.8-7.8 10^3/uL Lymphocytes # (Auto) 1.9 1.0-4.0 10^3/uL Monocytes # (Auto) 0.5 0.0-1.0 10^3/uL Eosinophils # (Auto) 0.1 0.0-0.3 10^3/uL Basophils # (Auto) 0.0 0.0-0.1 10^3/uL Immature Granulocyte # (Auto) 0.3 H 0.0-0.1 10^3/uL OB - Assessment/Plan/Diagnosis Assessment Assessment: rupture of membranes (at term 38w4d) Admission Dx 1. IUP at term 38w4d with SROM Admission Status: Inpatient Order (span 2 midnights) Reason for Inpatient Admission: labor and delivery Plan Plan: Expectant Management Induction Method: per Pitocin Protocol Other Plan -desires epidural KIARA MAO MD November 06, 2021 08:40
[2021-11-06] MEDS ORDERED: fentaNYL INJ 100 MCG/2 ML AMP ONE (08:59)
[2021-11-06] MEDS ORDERED: BUPIVACAINE 0.25% 10 ML (SENSORCAINE) VIAL ONE (08:59)
[2021-11-06] MEDS ORDERED: EPIDURAL (fentaNYL 2 MCG/ML BUPIVA 0.125%)100 ML BAG EPI PRN (09:30)
[2021-11-06] MEDS ORDERED: ONDANSETRON 4 MG/2 ML (SDV) Z0FRAN IV PRN (09:30)
[2021-11-06] MEDS ORDERED: NALOXONE 0.4 MG/ML 1 ML (NARCAN) VIAL IV PRN ×2 (09:30→13:45)
[2021-11-06] MEDS ORDERED: fentaNYL INJ 100 MCG/2 ML AMP INJ ONE (09:30)
[2021-11-06] MEDS ORDERED: LACTATED RINGERS 1,000 ML IV ONE ×2 (09:30)
--- NOTE | 2021-11-06 13:40 | OB Labor & Delivery Record ---
L&D History Date of Service Date of Service: November 06, 2021 History Expected Date of Delivery: November 15, 2021 Gestational Age in Weeks: 38 Hx : 4 Hx Para: 4 Complications Events: Routine care Operative Indications (Cesarea: N/A-Vaginal Delivery Intrapartal Events: None L&D Stage1 Stage One Onset of Labor - Date: November 06, 2021 Onset of Labor - Time: 04:45 Monitors and Tracing Monitor Mode: Internal Heart Rate: 130 Monitor Decelerations: None Station: -2 Assisted Variability: Average (6-10) Short Term Variability: Present Presentation: Vertex Vital Signs VS - Last 72 Hours, by Label 11/06/21 11/06/21 11/06/21 11/06/21 05:49 05:50 05:50 07:30 Temp 36.0 36.0 36.0 35.9 Pulse 102 102 102 96 Resp 20 20 20 18 B/P (MAP) 162/87 (112) 153/106 (122) Pulse Ox 98 98 98 98 O2 Delivery Room Air Room Air Room Air Room Air 11/06/21 11/06/21 11/06/21 11/06/21 08:00 08:15 08:30 08:45 Pulse 90 92 95 92 Resp 18 18 18 18 B/P (MAP) 138/81 (100) 153/85 (107) 137/85 (102) 141/83 (102) O2 Delivery Room Air Room Air Room Air Room Air 11/06/21 11/06/21 11/06/21 11/06/21 09:00 09:10 09:15 09:20 Temp 36.3 Pulse 95 96 93 95 Resp 18 18 18 18 B/P (MAP) 153/88 (109) 140/79 (99) 136/90 (105) 144/72 (96) Pulse Ox 99 99 99 96 O2 Delivery Room Air Room Air Room Air Room Air 11/06/21 11/06/21 11/06/21 11/06/21 09:25 09:30 09:35 09:40 Pulse 97 102 96 96 Resp 18 18 18 18 B/P (MAP) 126/70 (88) 120/56 (77) 105/51 (69) 154/96 (115) Pulse Ox 98 96 97 97 O2 Delivery Room Air Room Air Room Air Room Air 11/06/21 11/06/21 11/06/21 11/06/21 09:44 09:45 09:50 10:00 Pulse 94 91 101 Resp 18 18 18 B/P (MAP) 137/70 (92) 128/64 (85) Pulse Ox 97 100 100 O2 Delivery Non Rebreather Non Rebreather Non Rebreather Non Rebreather O2 Flow Rate 10.00 10.00 10.00 10.00 11/06/21 11/06/21 11/06/21 11/06/21 10:15 10:19 10:30 10:45 Pulse 97 102 95 Resp 18 18 18 B/P (MAP) 131/68 (89) 132/76 (94) 124/61 (82) Pulse Ox 100 100 100 O2 Delivery Non Rebreather Room Air Room Air Room Air O2 Flow Rate 10.00 11/06/21 11/06/21 11/06/21 11/06/21 11:00 11:15 11:30 11:45 Pulse 94 88 91 75 Resp 18 18 18 18 B/P (MAP) 146/81 (102) 130/77 (94) 128/60 (82) 119/61 (80) Pulse Ox 100 100 100 100 O2 Delivery Room Air Room Air Room Air Room Air Rupture of Membranes Spontaneous Ruture of Membrane: Yes Amniotic Membrane Rupture Time: 0445 Amniotic Membrane Fluid Desc.: Clear Induction/Anesthesia Epidural Cath Placement - Time: 14 L&D Stage2 Stage Two Stage II Date: November 06, 2021 Stage II Time: 13:17 Monitors and Tracing Monitor Mode: Internal Heart Rate: 130 Monitor Accelerations: Uniform Monitor Decelerations: Early Assisted Variability: Average (6-10) Short Term Variability: Present Position: Left Occiput Anterior Presentation: Vertex Signs of Distress by FHT Signs of Distress no Cord Descript/Complications Cord Vessel Description: 3 Vessels Delivery Type Delivery Method: Spontaneous Vaginal Anterior Shoulder: Left Episiotomy/Perineal Laceration Laceraction(s)/Extensions: No Condition of Infant Delivery 1 minute Comment: 8 5 minute Comment: 9 Condition of Condition of Infant: Living Exam: No Observed Abnormalities Resuscitation Resuscitation: N/A - Spontaneous Resp L&D Stage3 Stage Three Stage III Date: November 06, 2021 Stage III Time: 13:24 Pictocin Pitocin Administration mu/min: 8 Pitocin ml/hr: 8 Pitocin Administration Comment: pitocin gtt increased Placenta Delivery Placenta Delivery: Spontaneous Delivery Summary Summary Estimated blood loss (mL): 150 Condition of Delivery Examined: Cervix Examined Post Hemorrhage: No Intervention Required none KIARA MAO MD November 06, 2021 13:40
[2021-11-06] MEDS ORDERED: BENZOCAINE/MENTHOL (DERMOPLAST) 56 ML CAN TP PRN (13:45)
[2021-11-06] MEDS ORDERED: WITCH HAZEL(TUCKS) 40 EA JAR TOP PRN (13:45)
[2021-11-06] MEDS ORDERED: MEASLES,MUMPS,RUBELLA 1 EA INJ SQ ONE (13:45)
[2021-11-06] MEDS ORDERED: TETANUS,DIPTH,PERTUSS P/F (BOOSTRIX) 0.5 ML VIAL IM ONE (13:45)
[2021-11-06] MEDS ORDERED: CATHETER FLUSH 10 ML SYR IV SCH (14:00)
[2021-11-06] MEDS: CATHETER FLUSH 10 ML SYR IV SCH ×2 (14:29→23:37)
[2021-11-06] MEDS: ACETAMINOPHEN 500 MG TAB (TYLENOL) PO SCH (18:10)
[2021-11-06] MEDS: IBUPROFEN 600 MG (MOTRIN) TAB PO SCH ×2 (18:10→23:37)
[2021-11-06] MEDS: DOCUSATE SODIUM 100 MG (COLACE) CAP PO SCH (19:55)
[2021-11-07] MEDS: IBUPROFEN 600 MG (MOTRIN) TAB PO SCH ×2 (04:58→11:38)
[2021-11-07] MEDS: ACETAMINOPHEN 500 MG TAB (TYLENOL) PO SCH ×3 (04:58→11:38)
[2021-11-07 04:59] VITALS: BP 134/78
[2021-11-07 06:00] LABS: BASOPHILS % (AUTO) 0 % (0-10); EOSINOPHILS # (AUTO) 0.1 10^3/uL (0.0-0.3); EOSINOPHILS % (AUTO) 1 % (0-10); HEMATOCRIT 33 % (35-52); LYMPHOCYTES # (AUTO) 1.8 10^3/uL (1.0-4.0); LYMPHOCYTES % (AUTO) 19 % (12-44); MEAN CORPUSCULAR HEMOGLOBIN 29 pg (25-34); MEAN CORPUSCULAR HGB CONC 33 g/dL (32-36); MEAN CORPUSCULAR VOLUME 86 fL (80-99); MEAN PLATELET VOLUME 10.9 fL (9.0-12.2); MONOCYTES # (AUTO) 0.5 10^3/uL (0.0-1.0); MONOCYTES % (AUTO) 5 % (0-12); NEUTROPHILS % (AUTO) 73 % (42-75); PLATELET COUNT 148 10^3/uL (130-400); WHITE BLOOD COUNT 9.6 10^3/uL (4.3-11.0)
--- NOTE | 2021-11-07 07:55 | Anesthesia-Regional Post-Op ---
Regional Patient Condition Mental Status: Alert, Oriented x3 Circulation: Same as Pre-Op Headache: Absent Sensation: Full Recovery Motor Block: Absent Post Op Complications Complications None Follow Up Care/Instructions Patient Instructions None needed. Anesthesia/Patient Condition Patient is doing well, no complaints, stable vital signs, no apparent adverse anesthesia problems. No complications reported per nursing. D/C home per [facility] Criteria: Yes JOHN BULL CRNA November 07, 2021 07:55
[2021-11-07] MEDS ORDERED: LORATADINE (CLARITIN) 10 MG TAB PO SCH (09:00)
[2021-11-07] MEDS: DOCUSATE SODIUM 100 MG (COLACE) CAP PO SCH (09:43)
[2021-11-07 09:46] VITALS: BP 134/74
[2021-11-07] MEDS ORDERED: TETANUS,DIPTH,PERTUSS P/F (BOOSTRIX) 0.5 ML VIAL IM ONE (11:15)
[2021-11-07 11:46] VITALS: BP 130/70
[2021-11-07] MEDS ORDERED: IBUP-844 PO (15:47)
--- NOTE | 2021-11-07 15:48 | Discharge Inst-Women's Service ---
Discharge Inst-Women's Serv Depart Medication/Instructions New, Converted or Re-Newed RX: Transmitted to Pharmacy ([facility] [address]) Problems Reviewed?: Yes Consults/Follow Up Additional Follow Up: Yes (Dr Mao in 6 weeks) Activity Activity: Activity as Tolerated Driving Instructions: No Driving for 1 Week NO SMOKING: NO SMOKING (preferred) Nothing Inside Vagina: No [place] (for 6 weeks) Diet Discharge Diet: Regular Diet Return to The Hospital For: as below Symptoms to Report to : Bleeding Excessive, Fever Over 101 Degrees F, Vaginal Discharge Foul For Any Problems or Questions: Contact Your Physician KIARA MAO MD November 07, 2021 15:48
--- NOTE | 2021-11-07 15:52 | Discharge Summary ---
Diagnosis/Chief Complaint Date of Admission November 06, 2021 at 06:20 Date of Discharge November 07, 2021 Discharge Date: November 07, 2021 Admission Diagnosis Admission Diagnosis 1 Intrauterine at 38 weeks gestation Discharge Diagnosis 1 Intrauterine at 38 weeks gestation Reason Hospital Visit 30-year-old now 4 term for L4 who initially presented to labor and delivery with spontaneous rupture of membranes at 38 weeks and 4 days gestation. She was noted to have clear fluid. Her care was essentially uncomplicated. Her GBS status at 36 weeks was noted to be negative. She did admit to contractions on admission. Discharge Summary-OBS Procedures 1. Epidural per anesthesia 2. Spontaneous vaginal delivery Discharge Physical Examination Allergies: Coded Allergies: No Known Drug Allergies (Unverified , 08/05/19) Vitals & I&Os Vital Signs Date Time Temp Pulse Resp B/P (MAP) Pulse Ox O2 Delivery O2 Flow Rate FiO2 11/07/21 11:46 35.6 94 18 130/70 (90) 96 Room Air 11/06/21 10:15 10.00 General Appearance: No Acute Distress Respiratory: Clear to Auscultation Cardiovascular: Regular Rate Abdominal: Soft (with the uterus firm) Extremities: No Tenderness/Swelling Skin: No Rashes Hospital Course Was the Problem List Reviewed?: Yes following admission patient underwent labor and delivery course. She was noted to have epidural per anesthesia and she tolerated procedure well. She had required low-dose Pitocin augmentation. Eventually she went on the completion and delivered over an intact perineum a term viable male. received Apgars of 8 at 1 minute and 9 at 5 minutes. See labor and delivery for full details Following deliver patient underwent routine care orders. She was noted to have no issues during the remainder of hospital stay. She tolerated regular diet. She was ambulatory without any shortness of breath or leg pain. Her hemoglobin in the morning of November 07 was 11.0 compared to admission of 12.7. She was felt ready for dismissal during the afternoon of November 07, 2021 Discharge Instructions to patient/family Please see electronic discharge instructions given to patient. Discharge Medications Reviewed and agree with Discharge Medication list on patient's Discharge Instruction sheet KIARA MAO MD November 07, 2021 15:52
== END 2021-11-07 17:45 | disposition home or self-care (01) | DRG 807 ==
LOC: WSo 05:21 → LDRP 05:22 → WSo 06:19 → LDRP 06:20
PROVIDERS: ADMIT Family Medicine; ATTEND Family Medicine
PROC: 10E0XZZ Delivery of Products of Conception, External Approach (ICD-10-PCS; principal; 2021-11-06)
DX: O80 Encounter for full-term uncomplicated delivery (principal); Z37.0 Single live birth; Z3A.38 38 weeks gestation of pregnancy
CPT/HCPCS: 36415; 84112; 85025; 86850; 86900; 86901; 90715; 99212

== ENCOUNTER 2021-11-21 19:26 | Emergency (ER) | payer MEDICAID ==
[~2021-11-21 19:26] MED LIST changes: +IBUP-844 PO
--- NOTE | 2021-11-21 20:07 | ED General ---
General Chief Complaint: (<6 weeks) Stated Complaint: HIGH BLOOD PRESSURE, HEADACHE Source of Information: Patient Exam Limitations: No Limitations History of Present Illness Date Seen by Provider: Nov 21, 2021 Time Seen by Provider: 19:45 Initial Comments Patient to the ER by private conveyance from home with chief complaint that she noticed her blood pressure was elevated 158/102. Her friend to her high blood pressure encouraged to come to the ER. She is not having any symptoms. She is about 2 weeks from a vaginal delivery of her fourth child without significant complications. She had borderline elevated blood pressure throughout the last trimester by Dr. Mao had not started her on a blood pressure medicines because it had never crossed the threshold. She does not have high blood pressure routinely. She quit smoking 14 days ago. She does not have diabetes or cholesterol chest pain shortness of air nausea vomiting diarrhea. She checks her blood pressure throughout the day and she says she waited an hour sitting in a chair watching TV before she checked it. She has not had her blood pressure cuff checked against her primary care provider's blood pressure cuff. Her next appointment is on the , 20 days from now. She had no symptoms of preeclampsia during her . She is not having any edema now. She is at all of her edema from has gone away. She is not having any visual disturbances or blindness or spots in her visual sal[place]on. She does have a headache however. She drinks an occasional soda but does not drink energy drinks. Allergies and Home Medications Allergies Coded Allergies: No Known Drug Allergies (Unverified , 08/05/19) Patient Home Medication List Home Medication List Reviewed: Yes Ibuprofen (Ibu) 600 Mg Tablet, 600 MG PO Q6HR Prescribed by: KIARA MAO on 11/07/21 1547 Loratadine (Loratadine) 10 Mg Tablet, 10 MG PO DAILY, (Reported) Entered as Reported by: HUONG SHAW on 09/22/21 1601 Review of Systems Review of Systems Constitutional: No chills, No diaphoresis EENTM: No ear discharge, No ear pain Respiratory: No cough, No phlegm, No short of breath Cardiovascular: No chest pain, No edema, No Hx of Intervention, No palpitations Gastrointestinal: No abdominal pain, No nausea, No vomiting Genitourinary: No dysuria, No frequency All Other Systems Reviewed Negative Unless Noted: Yes Past Oryaday-Bjqihz-Yypigs Hx Patient Social History Tobacco Use?: Yes Tobacco type used: Cigarettes Smoking Status: Current Everyday Smoker (Quit 14 days ago) Use of E-Cig and/or Vaping dev: No Substance use?: No Alcohol Use?: No Immunizations Up To Date Tetanus Booster (TDap): Unknown PED Vaccines UTD: Yes Seasonal Allergies Seasonal Allergies: No Past Medical History Surgeries: Yes (ganglion cyst on L wrist ) Appendectomy, Gallbladder, Orthopedic Respiratory: No Cardiac: Yes High Cholesterol, Hypertension Neurological: Yes Headaches /Migraines Reproductive Disorders: Yes Female Reproductive Disorders: Menstrual Problems Genitourinary: No Gastrointestinal: Yes (ANAL FISSURE; CHOLECYSTECTOMY 2017) Gastroesophageal Reflux, Hemorrhoids, Polyps, Gall Bladder Disease, Irritable Bowel Musculoskeletal: Yes (LEFT WRIST GANGLION CYST REMOVED) Endocrine: No HEENT: Yes (DENTAL CARIES) Cancer: No Psychosocial: Yes Anxiety, Depression Integumentary: No Recent Skin Changes Blood Disorders: No Adverse Reaction/Blood Tranf: No Family Medical History Patient reports no known family medical history. No Pertinent Family Hx SOCIAL HISTORY: -ETOH -DRUGS -SMOKING PAST SURGICAL HISTORY: -CHOLECYSTECTOMY 04/01/[address] MCKEON -COLONOSCOPY/POLYPECTOMY O BY DR. MCKEON -EGD 03/09/[address] MCKEON -LEFT WRIST GANGLION CHST BY DR. MCKEON 2014 -APPENDECTOMY Physical Exam Vital Signs Vital Signs - First Documented 11/21/21 19:48 Temp 35.6 Pulse 85 Resp 16 B/P (MAP) 149/102 (118) Pulse Ox 99 O2 Delivery Room Air Capillary Refill : Height, Weight, BMI Height: 5'4.00" Weight: 255lbs. 0oz. 115.200632ir; 49.17 BMI Method:Stated General Appearance: No Apparent Distress, Obese Eyes: Bilateral Eye Normal Inspection, Bilateral Eye PERRL, Bilateral Eye EOMI HEENT: PERRL/EOMI, Pharynx Normal, Moist Mucous Membranes Neck: Full Range of Motion, Normal Inspection Respiratory: No Accessory Muscle Use, No Respiratory Distress Cardiovascular: Regular Rate, Rhythm, No Edema Extremity: Normal Capillary Refill, Normal Inspection Neurologic/Psychiatric: Alert, Oriented x3 Progress/Results/Core Measures Suspected Sepsis SIRS Temperature: Pulse: Respiratory Rate: Blood Pressure / Mean: Results/Orders Vital Signs/I&O 11/21/21 11/21/21 19:48 19:48 Temp 35.6 Pulse 85 Resp 16 B/P (MAP) 149/102 (118) Pulse Ox 99 O2 Delivery Room Air Room Air Capillary Refill : Progress Note #1: Time: 20:08 Progress Note The patient does not appear eclamptic or peak preeclamptic. Her blood pressure is borderline 150/101 so we will watch her for a couple times. On subsequent blood pressure is 142/99. We did discuss appropriate cuff size and taking her blood pressure cuff to her PCP's office to have it checked against their blood pressure cuff. We also suggest that if her blood pressure cuff goes above 160/110 consistently then she needs to talk to her primary care doctor about initiating medicines. 1000 mg Tylenol for her headache and a glass of water. She is in no acute distress and is okay with this plan. Progress Note #2: Time: 20:28 Progress Note Blood pressure 133/95. Patient resting comfortably. Departure Impression Primary Impression: Hypertension in , transient, Disposition: 01 HOME, SELF-CARE Condition: Stable Departure-Patient Inst. Decision time for Depature: 20:21 Referrals: KIARA MAO MD (PCP/Family) Primary Care Physician Patient Instructions: Fitness, High Blood Pressure and Add. Discharge Instructions: Take your blood pressure cuff with you to your next appointment on the to have it checked against your primary care offices blood pressure cuffs. 3-5 times a week first thing in the morning when you get up you should check your blood pressure before you do anything stimulating and write down these numbers in a log. Take these with you to your next appointment. If your blood pressure is consistently above 160/110 for more than 2 days in a row then you should call Dr. Mao and he will discuss with you starting new medications. Return to the ER if you are having chest pain, blindness, shortness of air or other worrisome symptoms. All discharge instructions reviewed with patient and/or family. Voiced understanding. Copy Copies To 1: KIARA MAO MD, TITUS J Nov 21, 2021 20:07
[2021-11-21 20:30] VITALS: BP 133/95
== END 2021-11-21 20:34 | disposition home or self-care (01) ==
LOC: EDUNIT# 19:26 → ER 19:28
DX: O13.5 Gestational [pregnancy-induced] hypertension without significant proteinuria, complicating the puerperium (principal); F17.210 Nicotine dependence, cigarettes, uncomplicated
CPT/HCPCS: 99281

== ENCOUNTER 2021-12-19 21:47 | Emergency (ER) | payer MEDICAID ==
[~2021-12-19] VITALS: Ht 162.5 cm; Wt 123.4 kg
[2021-12-19 21:56] VITALS: BP 133/80
--- NOTE | 2021-12-19 22:10 | ED Lower Extremity ---
General Chief Complaint: Lower Extremity Stated Complaint: FOOT SWELLING Source: patient Exam Limitations: no limitations (GALINA SANTANA) History of Present Illness Date Seen by Provider: Dec 19, 2021 Time Seen by Provider: 22:09 Initial Comments Patient is a 31-year-old female presents ED with bilateral foot swelling. Symptoms started today after she spent her first day back working at [employer]. She states she gave on October 27. She just returned back to work today. After getting home she noticed some swelling to her feet bilateral. She reports some mild pain and discomfort. Reports mild redness. Denies of any calf pain, fever, shortness of breath, nausea, vomiting, chest pain, shortness of breath. Denies any trauma. 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 (GALINA SANTANA) Allergies and Home Medications Allergies Coded Allergies: No Known Drug Allergies (Unverified , 08/05/19) Patient Home Medication List Home Medication List Reviewed: Yes (GALINA SANTANA) Ibuprofen (Ibu) 600 Mg Tablet, 600 MG PO Q6HR Prescribed by: KIARA MAO on 11/07/21 1547 Loratadine (Loratadine) 10 Mg Tablet, 10 MG PO DAILY, (Reported) Entered as Reported by: HUONG SHAW on 09/22/21 1601 Review of Systems Constitutional: No chills, No diaphoresis, No malaise, No weakness EENTM: No ear pain, No blurred vision, No double vision Respiratory: No cough, No dyspnea on exertion Cardiovascular: No chest pain Gastrointestinal: No abdominal pain, No diarrhea, No nausea Genitourinary: No decreased output, No discharge Musculoskeletal: No back pain, No joint pain, No muscle pain; other (leg swe lling) Skin: No change in color, No change in hair/nails (GALINA SANTANA) All Other Systems Reviewed Negative Unless Noted: Yes (GALINA SANTANA) Past Clliahk-Mdrlrl-Tvdqph Hx Immunizations Up To Date Tetanus Booster (TDap): Unknown PED Vaccines UTD: Yes (GALINA SANTANA) Seasonal Allergies Seasonal Allergies: No (GALINA SANTANA) Past Medical History Surgeries: Yes (ganglion cyst on L wrist ) Appendectomy, Gallbladder, Orthopedic Respiratory: No Cardiac: Yes High Cholesterol, Hypertension Neurological: Yes Headaches /Migraines Reproductive Disorders: Yes Female Reproductive Disorders: Menstrual Problems Genitourinary: No Gastrointestinal: Yes (ANAL FISSURE; CHOLECYSTECTOMY 2018) Gastroesophageal Reflux, Hemorrhoids, Polyps, Gall Bladder Disease, Irritable Bowel Musculoskeletal: Yes (LEFT WRIST GANGLION CYST REMOVED) Endocrine: No HEENT: Yes (DENTAL CARIES) Cancer: No Psychosocial: Yes Anxiety, Depression Integumentary: No Recent Skin Changes Blood Disorders: No Adverse Reaction/Blood Tranf: No (GALINA SANTANA) Family Medical History Patient reports no known family medical history. No Pertinent Family Hx SOCIAL HISTORY: -ETOH -DRUGS -SMOKING PAST SURGICAL HISTORY: -CHOLECYSTECTOMY 04/01/[address] MCKEON -COLONOSCOPY/POLYPECTOMY O BY DR. MCKEON -EGD 03/09/[address] MCKEON -LEFT WRIST GANGLION CHST BY DR. MCKEON 2014 -APPENDECTOMY (GALINA SANTANA) Physical Exam Vital Signs Vital Signs - First Documented 12/19/21 21:56 Temp 37.2 Pulse 102 Resp 20 B/P (MAP) 133/80 (97) Pulse Ox 100 O2 Delivery Room Air (DHEERAJ,ISIDRO K DO) Vital Signs Capillary Refill : (GALINA SANTANA) Height, Weight, BMI Height: 5'4.00" Weight: 255lbs. 0oz. [id number]; 49.17 BMI Method:Stated General Appearance: WD/WN, no apparent distress HEENT: PERRL/EOMI, normal ENT inspection, TMs normal, pharynx normal Neck: non-tender, full range of motion, supple, normal inspection Cardiovascular: regular rate, rhythm, no edema, no gallop, no JVD Respiratory: chest non-tender, lungs clear, normal breath sounds, no respiratory distress, no accessory muscle use Gastrointestinal: normal bowel sounds, non tender, soft, no organomegaly Back: normal inspection, no CVA tenderness Hips: bilateral hip non-tender, bilateral hip normal inspection, bilateral hip normal range of motion Feet: bilateral foot swelling Neurologic/Psychiatric: alterations manager II-XII nml as tested, no motor/sensory deficits, alert, normal mood/affect, oriented x 3 Skin: normal color, warm/dry (GALINA SANTANA) Progress/Results/Core Measures Results/Orders Vital Signs/I&O 12/19/21 21:56 Temp 37.2 Pulse 102 Resp 20 B/P (MAP) 133/80 (97) Pulse Ox 100 O2 Delivery Room Air (ISIDRO ESQUEDA DO) Departure Communication (PCP) Patient has some mild swelling on the medial side of bilateral feet. Mild redness. Does not appear infectious. She started working today from being on leave since October 27. She denies of any trauma. No chest pain, shortness of breath. No calf tenderness. Appears to be localized swelling likely secondary to being up on her feet. She is not hypertensive. Denies any urinary symptoms. No abdominal pain or flank pain. Recommend Nick wrap, elevation. Provided work note for few days. Discussed that this should improve but may take time once she back to working again. Follow-up your PCP in 2 to 3 days for reevaluation. return precaution were discussed Discussed drinking water, wear compression socks, wear comfortable shoes keep feet elevated reduce caffeine intake. (GALINA SANTANA) Impression Primary Impression: Foot swelling Disposition: HOME, SELF-CARE Condition: Stable Departure-Patient Inst. Decision time for Depature: 22:09 (GALINA SANTANA) Referrals: KIARA MAO MD (PCP/Family) Primary Care Physician Patient Instructions: Swelling Work/School Note: Work Release Form Date Seen in the Emergency Department: Dec 19, 2021 Return to Work: Dec 25, 2021 ATTENDING PHYSICIAN NOTE: I WAS PHYSICALLY PRESENT ER PHYSICIAN, BUT I WAS NOT INVOLVED IN ANY DECISION MAKING OR ANY CARE OF THIS PATIENT. (ISIDRO ESQUEDA DO) GALINA SANTANA Dec 19, 2021 22:09 ISIDRO ESQUEDA DO Dec 19, 2021 23:48
[2021-12-19] MEDS ORDERED: RX-ALBUTEROL INHALER 8.5 GM HFA (PROAIR) IH ONE (22:30)
== END 2021-12-19 22:23 | disposition home or self-care (01) ==
LOC: EDUNIT# 21:47 → ER 21:49
DX: M79.89 Other specified soft tissue disorders (principal); Z28.310 Unvaccinated for COVID-19
CPT/HCPCS: 99281

== ENCOUNTER 2022-07-10 07:36 | Observation (INO) | payer MEDICAID ==
[~2022-07-10] VITALS: Ht 163 cm; Wt 125.0 kg
--- NOTE | 2022-07-10 08:00 | ED Respiratory ---
General Chief Complaint: Cough/Cold/Flu Symptoms Stated Complaint: BRONCHITIS | DIZZY Source: patient Exam Limitations: no limitations History of Present Illness Date Seen by Provider: Jul 10, 2022 Time Seen by Provider: 07:47 Initial Comments Patient is a 31-year-old female who presents to the emergency room with a chief complaint of "bronchitis". She complains of chronic cough since April productive of yellow sputum. She states she was at work this morning and became short of breath and states she really could not function so decided to come to the emergency room. She also started experiencing "dizziness" this morning. She has taken vfvj-mjn-aagpvyj generic Robitussin without relief of symptoms. She has seen her primary care provider and been on 2 separate prescriptions. She states she thinks she finished up a 10-day antibiotic course last Thursday, 5 days ago. She states she feels a little bit better regarding the cough but still very short of breath. She states her doctor wanted to look at her for pneumonia, I gave her an order for a chest x-ray 2 weeks ago but she has not g nanda it done yet. She denies fevers chills. She has had upper airway congestion. She denies chest pain other than with cough. She denies recent prolonged immobility, surgery or travel. No personal or family history of blood clot disorder. She does not have any significant past medical history, does not take medications on a daily basis. She is 8 months , breast-feeding. She has had no menstrual cycle since delivery. She is a former smoker, quit in October 2021. States she smoked 6 to 8 cigarettes a day. Occasionally uses one of her children's inhalers but it has been weeks since she is done so. A friend gave her a nebulizer in the last couple of months, the last use of this was on Thursday. Moving around makes her cough and shortness of breath worse. Remaining still improves that marginally. Of note on presentation the patient is morbidly obese, tachycardic with a heart rate at 113 room air oxygen 89 to 91%. No notable increased work of breathing or respiratory distress. All other review of systems reviewed and negative except as stated. Timing/Duration: getting worse, other (months - since April) Severity: moderate Modifying Factors: Improves With Albuterol Nebulizer (last used Thursday) Associated Symptoms: chest pain/soreness (with cough), cough, nasal congestion, wheezing Allergies and Home Medications Allergies Coded Allergies: No Known Drug Allergies (Unverified , 08/05/19) Patient Home Medication List Home Medication List Reviewed: Yes Albuterol Sulfate (Albuterol Sulfate) 2.5 Mg/3 Ml (0.083 %) Vial.neb, 2.5 MG INH Q6H Prescribed by: BROOK WEAVER on 07/10/22 1147 Albuterol Sulfate (Ventolin Hfa) 90 Mcg Hfa.aer.ad, 2 PUFF INH Q4H PRN for SHORTNESS OF BREATH Prescribed by: BROOK WEAVER on 07/10/22 1147 Azithromycin (Azithromycin) 250 Mg Tablet, 250 MG PO DAILY Prescribed by: BROOK WEAVER on 07/10/22 1147 Cefdinir (Cefdinir) 300 Mg Capsule, 300 MG PO BID Prescribed by: BROOK WEAVER on 07/10/22 1147 D-Methorphan Hb/Prometh HCl (Promethazine-Dm Syrup) 6.25 Mg-15 Mg/5 Ml Syrup, 10 ML PO HS PRN for cough Prescribed by: BROOK WEAVER on 07/10/22 1147 Ibuprofen (Ibu) 600 Mg Tablet, 600 MG PO Q6HR Prescribed by: KIARA MAO on 11/07/21 1547 Loratadine (Loratadine) 10 Mg Tablet, 10 MG PO DAILY, (Reported) Entered as Reported by: HUONG SHAW on 09/22/21 1601 Review of Systems Review of Systems Constitutional: see HPI, malaise EENTM: nose congestion Respiratory: cough, dyspnea on exertion, phlegm ("yellow"), short of breath, wheezing Cardiovascular: chest pain (with cough) Gastrointestinal: no symptoms reported Genitourinary: no symptoms reported : No Musculoskeletal: no symptoms reported Skin: no symptoms reported Psychiatric/Neurological: No Symptoms Reported Past Rlusots-Aodewv-Egjolw Hx Immunizations Up To Date Tetanus Booster (TDap): Unknown PED Vaccines UTD: Yes Seasonal Allergies Seasonal Allergies: No Past Medical History Surgeries: Yes (ganglion cyst on L wrist ) Appendectomy, Gallbladder, Orthopedic Respiratory: No Cardiac: Yes High Cholesterol, Hypertension Neurological: Yes Headaches /Migraines Reproductive Disorders: Yes Female Reproductive Disorders: Menstrual Problems Genitourinary: No Gastrointestinal: Yes (ANAL FISSURE; CHOLECYSTECTOMY 2018) Gastroesophageal Reflux, Hemorrhoids, Polyps, Gall Bladder Disease, Irritable Bowel Musculoskeletal: Yes (LEFT WRIST GANGLION CYST REMOVED) Endocrine: No HEENT: Yes (DENTAL CARIES) Cancer: No Psychosocial: Yes Anxiety, Depression Integumentary: No Recent Skin Changes Blood Disorders: No Adverse Reaction/Blood Tranf: No Family Medical History Patient reports no known family medical history. No Pertinent Family Hx SOCIAL HISTORY: -ETOH -DRUGS -SMOKING PAST SURGICAL HISTORY: -CHOLECYSTECTOMY 04/01/[address] MCKEON -COLONOSCOPY/POLYPECTOMY O BY DR. MCKEON -EGD 03/09/[address] MCKEON -LEFT WRIST GANGLION CHST BY DR. MCKEON 2014 -APPENDECTOMY Physical Exam Vital Signs - First Documented 07/10/22 07:47 Temp 35.8 Pulse 116 Resp 18 B/P (MAP) 137/92 (107) Pulse Ox 90 O2 Delivery Room Air Capillary Refill : Height: 5'4.00" Weight: 255lbs. 0oz. 115.709327oh; 46.00 BMI Method:Stated General Appearance: WD/WN, no apparent distress, obese Eyes: Bilateral Eye Normal Inspection, Bilateral Eye PERRL, Bilateral Eye EOMI Neck: non-tender, full range of motion, supple, normal inspection Respiratory: no respiratory distress, no accessory muscle use, decreased breath sounds, crackles, wheezing (scant diffuse exp wheeze with overall poor air movement), other (room air sats 89-91%) Cardiovascular: regular rate, rhythm, tachycardia (113 HR) Gastrointestinal: non tender, soft Extremities: normal range of motion, non-tender, normal inspection, no pedal edema, no calf tenderness, normal capillary refill Neurologic/Psychiatric: no motor/sensory deficits, alert, normal mood/affect, oriented x 3 Skin: normal color, warm/dry Progress/Results/Core Measures Suspected Sepsis SIRS Temperature: Pulse: Respiratory Rate: Laboratory Tests 07/10/22 08:16: White Blood Count 16.8H Blood Pressure / Mean: Laboratory Tests 07/10/22 08:16: Creatinine 0.74, Platelet Count 237 Results/Orders Lab Results Laboratory Tests Test 07/10/22 08:16 07/10/22 08:40 Range/Units White Blood Count 16.8 H 4.3-11.0 10^3/uL Red Blood Count 4.48 3.80-5.11 10^6/uL Hemoglobin 13.5 11.5-16.0 g/dL Hematocrit 40 35-52 % Mean Corpuscular Volume 88 80-99 fL Mean Corpuscular Hemoglobin 30 25-34 pg Mean Corpuscular Hemoglobin Concent 34 32-36 g/dL Red Cell Distribution Width 13.7 10.0-14.5 % Platelet Count 237 130-400 10^3/uL Mean Platelet Volume 10.3 9.0-12.2 fL Immature Granulocyte % (Auto) 1 % Neutrophils (%) (Auto) 83 H 42-75 % Lymphocytes (%) (Auto) 10 L 12-44 % Monocytes (%) (Auto) 5 0-12 % Eosinophils (%) (Auto) 1 0-10 % Basophils (%) (Auto) 1 0-10 % Neutrophils # (Auto) 14.0 H 1.8-7.8 10^3/uL Lymphocytes # (Auto) 1.7 1.0-4.0 10^3/uL Monocytes # (Auto) 0.8 0.0-1.0 10^3/uL Eosinophils # (Auto) 0.1 0.0-0.3 10^3/uL Basophils # (Auto) 0.1 0.0-0.1 10^3/uL Immature Granulocyte # (Auto) 0.1 0.0-0.1 10^3/uL Neutrophils % (Manual) 77 % Lymphocytes % (Manual) 14 % Monocytes % (Manual) 4 % Band Neutrophils 5 % Blood Morphology Comment NORMAL D-Dimer 0.96 H 0.00-0.49 UG/ML Sodium Level 136 135-145 MMOL/L Potassium Level 4.5 3.6-5.0 MMOL/L Chloride Level 101 98-107 MMOL/L Carbon Dioxide Level 20 L 21-32 MMOL/L Anion Gap 15 H 5-14 MMOL/L Blood Urea Nitrogen 14 7-18 MG/DL Creatinine 0.74 0.60-1.30 MG/DL Estimat Glomerular Filtration Rate 111 BUN/Creatinine Ratio 19 Glucose Level 123 H 70-105 MG/DL Calcium Level 9.1 8.5-10.1 MG/DL SARS-CoV-2 RNA (RT-PCR) Not Detected Not Detecte My Orders Orders - BROOK WEAVER MD Ed Iv/Invasive Line Start (1/19/23 08:00) Cbc With Automated Diff (07/10/22 08:00) Basic Metabolic Panel (07/10/22 08:00) Urine Bedside (07/10/22 08:00) Fibrin Degradation Products (07/10/22 08:00) Chest 1 View, Ap/Pa Only (07/10/22 08:00) Manual Differential (07/10/22 08:16) Covid 19 Inhouse Test (07/10/22 08:33) Isolation Central Supply Req (07/10/22 08:33) Albuterol/Ipra Inhalation Soln (Duoneb I (07/10/22 09:00) Svn Small Volume Nebulizer (07/10/22 08:46) Sputum Culture (07/10/22 08:59) Ct Angio Chest W (07/10/22 09:32) Ns Iv 1000 Ml (Sodium Chloride 0.9%) (07/10/22 09:33) Iohexol Injection (Omnipaque 350 Mg/Ml 1 (07/10/22 10:00) Received Contrast (Hold Metformin- Contr (07/10/22 10:00) Ns (Ivpb) (Sodium Chloride 0.9% Ivpb Bag (07/10/22 10:00) Ceftriaxone 1 Gm Pre-Mix (Rocephin 1 Gm (07/10/22 11:45) Azithromycin Tablet (Zithromax Tablet) (07/10/22 11:45) General/Regular (07/10/22 Lunch) Albuterol Pre-Mix Nebs (Rt) (Proventil (07/10/22 12:00) Svn Small Volume Nebulizer (07/10/22 11:47) Methylprednisolone Sod Succ (Solu-Medrol (07/10/22 13:30) Medications Given in ED Current Medications Medications Dose Ordered Sig/Jessica Route Start Time Stop Time Status Last Admin Dose Admin Albuterol Sulfate 2.5 mg ONCE ONCE INH 07/10/22 12:00 07/10/22 12:01 DC 07/10/22 12:00 2.5 MG Albuterol/ Ipratropium 3 ml ONCE ONCE INH 07/10/22 09:00 07/10/22 09:01 DC 07/10/22 08:55 3 ML Azithromycin 500 mg ONCE ONCE PO 07/10/22 11:45 07/10/22 11:46 DC 07/10/22 12:02 500 MG Ceftriaxone Sodium/Dextrose 50 ml @ 100 mls/hr ONCE ONCE IV 07/10/22 11:45 07/10/22 12:14 DC 07/10/22 12:02 100 MLS/HR Iohexol 100 ml ONCE ONCE IV 07/10/22 10:00 07/10/22 10:01 DC 07/10/22 10:58 87 ML Sodium Chloride 100 ml ONCE ONCE IV 07/10/22 10:00 07/10/22 10:01 DC 07/10/22 10:58 80 ML Vital Signs/I&O 07/10/22 07/10/22 07/10/22 07:47 08:56 12:06 Temp 35.8 Pulse 116 Resp 18 B/P (MAP) 137/92 (107) Pulse Ox 90 90 93 O2 Delivery Room Air Room Air Room Air Capillary Refill : Progress Note #1: Time: 11:34 Progress Note Patient seen and evaluated by me, 31-year-old female chief complaint persistent cough over the last 2 to 3 months. Shortness of breath, dizziness today. Evalu ation today includes a physical exam, basic laboratory studies to include CBC, chemistry, additionally a D-dimer as well as COVID testing and sputum culture were obtained. Patient's labs showed leukocytosis on CBC, normal chemistry, mildly elevated D-dimer and negative COVID . Single view chest x-ray suggested patchy bilateral interstitial infiltrates. Considering her hypoxia, tachycardia and elevated D-dimer CT angiography was pursued. She did not have any evidence of central arterial emboli. There was significant bilateral pneumonia present. Secondary to her complaints of "dizziness" and her ongoing hypoxia in the room even at rest she was supplemented with 2 L of oxygen per nasal cannula. Her history and physical examination did not cause concern for acute coronary syndrome, aortic dissection, pneumothorax. No clinical or objective findings to support these. She does not on advanced imaging have pulmonary emboli. She did receive a breathing treatment, DuoNeb with some improvement of her symptomatic shortness of breath. I discussed findings with the patient, will add some IV antibiotics and put her on broader spectrum antibiotics over the course of the next 10 days. She is comfortable with this plan of care. She was not significantly audibly wheezing therefore I will not add steroids at this time. She does have access to a nebulizer, will give her albuterol for that as well as the DuoNeb inhaler. Return precautions provided. Patient is requesting a day or 2 off work, work note will be provided. All questions are sought and answered. Progress Note #2: Time: 12:31 Progress Note nottified by RN that patient's SaO2 dropped to 87% after second treatment once taken off supplemental oxygen. Replaced oxygen, will continue to monitor. Progress Note #3: Time: 13:33 Progress Note Patient consistently dropping into the upper 80s on oxygen saturations when attempting weaning off supplemental O2. Discussed with , the patient's primary care provider. Will admit for breathing treatments, IV steroids and antibiotics. Advised patient of change in plan of care. She is agreeable. Diagnostic Imaging Diagonstic Imaging: Xray Plain Films/CT/US/NM/MRI: chest Comments NAME: MARY KAY ASKEW MED REC#: [id number] PT STATUS: REG ER : 1990 PHYSICIAN: BROOK WEAVER MD ADMIT DATE: 07/10/22/ER Draft Date of Exam:07/10/22 CHEST 1 VIEW, AP/PA ONLY EXAMINATION: Chest, 1 view. HISTORY: SOB, productive cough, low sats. COMPARISON: 01/28/2021. FINDINGS: Heart size and pulmonary vasculature are normal. There are mild interstitial opacities within the mid and lower lungs. No pleural effusion or pneumothorax. There is a right upper lobe density measuring 1.1 cm which is more distinct on today's exam than on 01/28/2021. This was visualized on the study of 08/04/2019 and is similar in size. The osseous structures are intact. IMPRESSION: Mild interstitial opacities within the mid and lower lungs which can be seen with atelectasis, pulmonary edema, or pneumonia. Dictated on workstation # [id number] Dict: 07/10/22 0853 Trans: 07/10/22 0856 JM [id number] Interpreted by: COLIN PENNY DO Electronically signed by: Diagonstic Imaging: CT Plain Films/CT/US/NM/MRI: chest Comments [facility], [place] NAME: MARY KAY ASKEW [facility] REC#: [id number] PT STATUS: REG ER : 1990 PHYSICIAN: BROOK WEAVER MD ADMIT DATE: 07/10/22/ER Draft Date of Exam:07/10/22 CT ANGIO CHEST W PROCEDURE: CT angiography of the chest with contrast. TECHNIQUE: Multiple contiguous axial images were obtained through the chest after uneventful bolus administration of intravenous contrast. 3D reconstructed CTA MIP acquisitions were also performed. Auto Exposure Controls were utilized during the CT exam to meet ALARA standards for radiation dose reduction. INDICATION: Cough and shortness of breath. COMPARISON: No prior studies are available for comparison. FINDINGS: Evaluation of the pulmonary arterial system does show slightly suboptimal opacification of the pulmonary arterial system but no central emboli are detected. No filling defects are seen within central or lobar branches. The thoracic aorta is of normal caliber. There is no dissection. There is no pericardial or pleural fluid. There does appear to be soft tissue fullness in the subcarinal region, suggestive of lymphadenopathy, measuring 3.0 x 1.7 cm. In addition, there appear to be mildly prominent lymph nodes in the johnny bilaterally. Parenchymal evaluation does show some minimal tree-in-bud infiltrate in the right upper lobe. There are some patchy infiltrates in the lingula. Extensive tree-in-bud infiltrates in the right middle lobe and lingula as well as bilateral lower lobes are noted. There are some areas of airspace consolidation in the right middle lobe and lingula as well. The upper abdomen does show hepatic steatosis. The liver does appear to be enlarged. The spleen is enlarged as well at approximately 15 cm. IMPRESSION: 1. No evidence of pulmonary embolism or acute aortic disease. 2. There are extensive bilateral pulmonary infiltrates, likely on an infectious/inflammatory basis. There does appear to be some mediastinal and hilar lymphadenopathy as well. This could be reactive but followup would be recommended. 3. Hepatosplenomegaly with hepatic steatosis. Dictated on workstation # [id number] Dict: 07/10/22 1108 Trans: 07/10/22 1115 JM [id number] Interpreted by: ROSS WOOTEN MD Electronically signed by: Departure Communication (Admissions) Time/Spoke to Admitting Phy: 13:[address] Mao Impression Primary Impression: Multifocal pneumonia Additional Impressions: Hypoxia Former tobacco use Disposition: ADMITTED INPATIENT Condition: Improved Admissions Decision to Admit Reason: Admit from ER (General) Decision to Admit/Date: Jul 10, 2022 Time/Decision to Admit Time: 13:34 Departure-Patient Inst. Decision time for Depature: 11:41 Referrals: KIARA MAO MD (PCP/Family) Primary Care Physician Patient Instructions: Pneumonia, Adult ED Add. Discharge Instructions: Scripts Albuterol Sulfate (Ventolin Hfa) 90 Mcg Hfa.aer.ad 2 PUFF INH Q4H PRN for SHORTNESS OF BREATH, #1 UNIT 1 PUFF = 90 MCG Prov: BROOK WEAVER MD 07/10/22 D-Methorphan Hb/Prometh HCl (Promethazine-Dm Syrup) 6.25 Mg-15 Mg/5 Ml Syrup 10 ML PO HS PRN for cough, #120 ML Prov: BROOK WEAVER MD 07/10/22 Albuterol Sulfate (Albuterol Sulfate) 2.5 Mg/3 Ml (0.083 %) Vial.neb 2.5 MG INH Q6H for Shortness of Breath, #50 EA 1 Refill Prov: BROOK WEAVER MD 07/10/22 Azithromycin (Azithromycin) 250 Mg Tablet 250 MG PO DAILY for 4 Days, #4 TAB Prov: BROOK WEAVER MD 07/10/22 Cefdinir (Cefdinir) 300 Mg Capsule 300 MG PO BID, #14 CAP 0 Refills Prov: BROOK WEAVER MD 07/10/22 Work/School Note: Work Release Form Date Seen in the Emergency Department: Jul 10, 2022 Return to Work: Jul 13, 2022 Copy Copies To 1: KIARA MAO MD, KATHRYN M MD Jul 10, 2022 08:00
[2022-07-10 08:25] LABS: BASOPHILS # (AUTO) 0.1 10^3/uL (0.0-0.1); BASOPHILS % (AUTO) 1 % (0-10); EOSINOPHILS # (AUTO) 0.1 10^3/uL (0.0-0.3); EOSINOPHILS % (AUTO) 1 % (0-10); HEMATOCRIT 40 % (35-52); HEMOGLOBIN 13.5 g/dL (11.5-16.0); LYMPHOCYTES # (AUTO) 1.7 10^3/uL (1.0-4.0); LYMPHOCYTES % (AUTO) 10 % (12-44); MEAN CORPUSCULAR HEMOGLOBIN 30 pg (25-34); MEAN CORPUSCULAR HGB CONC 34 g/dL (32-36); MEAN CORPUSCULAR VOLUME 88 fL (80-99); MEAN PLATELET VOLUME 10.3 fL (9.0-12.2); MONOCYTES # (AUTO) 0.8 10^3/uL (0.0-1.0); MONOCYTES % (AUTO) 5 % (0-12); NEUTROPHILS % (AUTO) 83 % (42-75); PLATELET COUNT 237 10^3/uL (130-400); WHITE BLOOD COUNT 16.8 10^3/uL (4.3-11.0)
[2022-07-10 08:46] LABS: BAND NEUTROPHILS 5 %; LYMPHOCYTES % (MANUAL) 14 %; MONOCYTES % (MANUAL) 4 %; NEUTROPHILS % (MANUAL) 77 %; RBC MORPH NORMAL
[2022-07-10 08:55] LABS: CALCIUM 9.1 MG/DL (8.5-10.1); CREATININE SERUM 0.74 MG/DL (0.60-1.30); POTASSIUM 4.5 MMOL/L (3.6-5.0)
--- NOTE | 2022-07-10 08:56 | Diagnostic Imaging Report ---
EXAMINATION: Chest, 1 view. HISTORY: SOB, productive cough, low sats. COMPARISON: 01/28/2021. FINDINGS: Heart size and pulmonary vasculature are normal. There are mild interstitial opacities within the mid and lower lungs. No pleural effusion or pneumothorax. There is a right upper lobe density measuring 1.1 cm which is more distinct on today's exam than on 01/28/2021. This was visualized on the study of 08/04/2019 and is similar in size. The osseous structures are intact. IMPRESSION: Mild interstitial opacities within the mid and lower lungs which can be seen with atelectasis, pulmonary edema, or pneumonia. Dictated by: Dictated on workstation # [id number]
[2022-07-10] MEDS ORDERED: RT-ALBUTEROL/IPRATROPIUM 3 ML (DUONEB) VIAL INH ONE (09:00)
[2022-07-10] MEDS ORDERED: NS IV 1000 ML 1,000 ML IV STA (09:33)
[2022-07-10] MEDS ORDERED: IOHEXOL 350 MG/ML 100 ML (OMNIPAQUE 350) VIAL IV ONE (10:00)
[2022-07-10] MEDS ORDERED: NS 100 ML (IVPB) BAG IV ONE (10:00)
[2022-07-10] MEDS ORDERED: HOLD METFORMIN - RECEIVED CONTRAST 20 ML VIAL IV SCH (10:00)
--- NOTE | 2022-07-10 11:16 | Diagnostic Imaging Report ---
PROCEDURE: CT angiography of the chest with contrast. TECHNIQUE: Multiple contiguous axial images were obtained through the chest after uneventful bolus administration of intravenous contrast. 3D reconstructed CTA MIP acquisitions were also performed. Auto Exposure Controls were utilized during the CT exam to meet ALARA standards for radiation dose reduction. INDICATION: Cough and shortness of breath. COMPARISON: No prior studies are available for comparison. FINDINGS: Evaluation of the pulmonary arterial system does show slightly suboptimal opacification of the pulmonary arterial system but no central emboli are detected. No filling defects are seen within central or lobar branches. The thoracic aorta is of normal caliber. There is no dissection. There is no pericardial or pleural fluid. There does appear to be soft tissue fullness in the subcarinal region, suggestive of lymphadenopathy, measuring 3.0 x 1.7 cm. In addition, there appear to be mildly prominent lymph nodes in the johnny bilaterally. Parenchymal evaluation does show some minimal tree-in-bud infiltrate in the right upper lobe. There are some patchy infiltrates in the lingula. Extensive tree-in-bud infiltrates in the right middle lobe and lingula as well as bilateral lower lobes are noted. There are some areas of airspace consolidation in the right middle lobe and lingula as well. The upper abdomen does show hepatic steatosis. The liver does appear to be enlarged. The spleen is enlarged as well at approximately 15 cm. IMPRESSION: 1. No evidence of pulmonary embolism or acute aortic disease. 2. There are extensive bilateral pulmonary infiltrates, likely on an infectious/inflammatory basis. There does appear to be some mediastinal and hilar lymphadenopathy as well. This could be reactive but followup would be recommended. 3. Hepatosplenomegaly with hepatic steatosis. Dictated by: Dictated on workstation # [id number]
[2022-07-10] MEDS ORDERED: cefTRIAXone 1 GM PRE-MIX 50 ML IV ONE (11:45)
[2022-07-10] MEDS ORDERED: AZITHROMYCIN 250 MG TAB (ZITHROMAX) PO ONE (11:45)
[2022-07-10] MEDS ORDERED: CEFD300C3 PO (11:47)
[2022-07-10] MEDS ORDERED: ALBU2.5V4 INH (11:47)
[2022-07-10] MEDS ORDERED: AZIT250T12 PO (11:47)
[2022-07-10] MEDS ORDERED: PROM118S5 PO (11:47)
[2022-07-10] MEDS ORDERED: ALBU8.5H6 INH (11:47)
[2022-07-10] MEDS ORDERED: RT-ALBUTEROL SULF 2.5 MG/3 ML PRE-MIX VIAL INH ONE (12:00)
[2022-07-10] MEDS ORDERED: methylPREDNISolone 125 MG (Solu-MEDROL) VIAL IVP ONE (13:30)
[2022-07-10 15:40] VITALS: BP 117/76
[2022-07-10 16:22] VITALS: BP 125/88
[2022-07-10] MEDS ORDERED: CATHETER FLUSH 10 ML SYR IVP PRN (16:30)
[2022-07-10] MEDS ORDERED: IBUPROFEN 600 MG (MOTRIN) TAB PO PRN (16:30)
[2022-07-10] MEDS ORDERED: RT-ALBUTEROL/IPRATROPIUM 3 ML (DUONEB) VIAL INH PRN (16:30)
[2022-07-10] MEDS ORDERED: PROMETHAZINE 6.25 MG/5 ML SYRUP (PHENERGAN) 5 ML UDC PO PRN (16:45)
--- NOTE | 2022-07-10 18:42 | History & Physicial ---
History of Present Illness History of Present Illness Reason for visit/HPI Mary Kay is a 31-year-old female who presented to the emergency department with a cough that she has had since April. She had been recently treated through my office with antibiotics and reported she had improved overall. On the morning of admission she became short of breath as well as having dizziness. She had been taking hpon-enb-gxrlkwv cough suppressants without much improvement. Her cough is somewhat productive of phlegm. She was supposed to have an x-ray performed a few weeks ago but she did not go in to have it performed. There is no reports of chest pain or any blood clotting disorders. She has quit cigarette smoking. Date of Admission Jul 10, 2022 at 13:25 Date Seen by a Provider: Jul 10, 2022 Time Seen by a Provider: 17:20 I consulted on this patient on 07/10/22 18:38 Attending Physician Dave Mao MD Admitting Physician Admitting Physician: Dave Mao MD Attending Physician: Dave Mao MD Consult Allergies and Home Medications Allergies Coded Allergies: No Known Drug Allergies (Unverified , 08/05/19) Patient Home Medication List Home Medication List Reviewed: Yes Fluticasone Propionate (Fluticasone Propionate) 50 Mcg/Actuation [place].susp, 1 SPRAY NSEACH BID PRN for CONGESTION, (Reported) Entered as Reported by: SELMA FAULKNER on 07/11/22935 Last Action: Reviewed Loratadine (Loratadine) 10 Mg Tablet, 10 MG PO HS, (Reported) Entered as Reported by: SELMA FAULKNER on 07/11/22935 Last Action: Reviewed Naproxen (Naproxen) 500 Mg Tablet, 500 MG PO BID PRN for PAIN-MILD (1-4), (Reported) Entered as Reported by: SELMA FAULKNER on 07/11/22935 Last Action: Reviewed Discontinued Medications Albuterol Sulfate (Albuterol Sulfate) 2.5 Mg/3 Ml (0.083 %) Vial.neb, 2.5 MG INH Q6H Discontinued Reason: No Longer Taking Prescribed by: BROOK WEAVER on 07/10/22 6677 Last Action: Discontinued Albuterol Sulfate (Ventolin Hfa) 90 Mcg Hfa.aer.ad, 2 PUFF INH Q4H PRN for SHORTNESS OF BREATH Discontinued Reason: No Longer Taking Prescribed by: BROOK WEAVER on 07/10/221146 Last Action: Discontinued Azithromycin (Azithromycin) 250 Mg Tablet, 250 MG PO DAILY Discontinued Reason: No Longer Taking Prescribed by: BROOK WEAVER on 07/10/221146 Last Action: Discontinued Cefdinir (Cefdinir) 300 Mg Capsule, 300 MG PO BID Discontinued Reason: No Longer Taking Prescribed by: BROOK WEAVER on 07/10/221146 Last Action: Discontinued D-Methorphan Hb/Prometh HCl (Promethazine-Dm Syrup) 6.25 Mg-15 Mg/5 Ml Syrup, 10 ML PO HS PRN for cough Discontinued Reason: No Longer Taking Prescribed by: BROOK WEAVER on 07/10/221146 Last Action: Discontinued Ibuprofen (Ibu) 600 Mg Tablet, 600 MG PO Q6HR Discontinued Reason: No Longer Taking Prescribed by: DAVE MAO on 11/07/21 1547 Last Action: Discontinued Loratadine (Loratadine) 10 Mg Tablet, 10 MG PO DAILY, (Reported) Discontinued Reason: No Longer Taking Entered as Reported by: HUONG SHAW on 09/22/21 1601 Last Action: Discontinued Past Jdbidgy-Rgcyrj-Ouqqqj Hx Patient Social History Marrital Status: cohabiting Employed/Student: employed (At [employer]) Drug of Choice: DENIES Smoking Status: Former Smoker Former Smoker, Quit: Mar 22, 2016 2nd Hand Smoke Exposure: No Recent Hopitalizations: No Have you traveled recently?: No Alcohol Use?: No Pt feels they are or have been: No Immunizations Up To Date Tetanus Booster (TDap): Unknown Pediatric: Yes Seasonal Allergies Seasonal Allergies: No Surgeries Yes (ganglion cyst on L wrist ) Appendectomy, Gallbladder, Orthopedic Respiratory No Cardiovascular Yes High Cholesterol, Hypertension Neurological Yes Headaches /Migraines Reproductive System Last Menstrual Period: Jan 01, 2022 Hx Reproductive Disorders: Yes Female Reproductive Disorders: Menstrual Problems Genitourinary No Gastrointestinal Yes (ANAL FISSURE; CHOLECYSTECTOMY 2018) Gastroesophageal Reflux, Hemorrhoids, Polyps, Gall Bladder Disease, Irritable Bowel Musculoskeletal Yes (LEFT WRIST GANGLION CYST REMOVED) Endocrine History of Endocrine Disorders: No HEENT History of HEENT Disorders: Yes (DENTAL CARIES) Cancer No Psychosocial History of Psychiatric Problem: Yes Behavioral Health Disorders: Anxiety, Depression Integumentary History of Skin or Integumenta: No Skin/Integumentary Disorders: Recent Skin Changes Blood Transfusions History of Blood Disorders: No Adverse Reaction to a Blood Tr: No Family Medical History Significant Family History: No Pertinent Family Hx Other Significan Family Hx: SOCIAL HISTORY: -ETOH -DRUGS -SMOKING PAST SURGICAL HISTORY: -CHOLECYSTECTOMY 04/01/[address] MCKEON -COLONOSCOPY/POLYPECTOMY O BY DR. MCKEON -EGD 03/09/[address] MCKEON -LEFT WRIST GANGLION CHST BY DR. MCKEON 2014 -APPENDECTOMY Family Hx: Patient reports no known family medical history. Review of Systems Constitutional: see HPI Physical Exam Vital Signs Vital Signs - First Documented 07/10/22 07/10/22 07/10/22 07:47 15:34 16:22 Temp 35.8 Pulse 116 Resp 18 B/P (MAP) 137/92 (107) Pulse Ox 90 O2 Delivery Room Air O2 Flow Rate 2.00 FiO2 28 Capillary Refill : Less Than 3 Seconds Height, Weight, BMI Height: 5'4.00" Weight: 255lbs. 0oz. 115.045373et; 47.04 BMI Method:Stated General Appearance: No Apparent Distress Eyes: Bilateral Eye Normal Inspection HEENT: Pharynx Normal Neck: Carotid Bruit Respiratory: Crackles (Faint in the bases), Respiratory Distress (Is very minimal on the floor at time of exam) Cardiovascular: Regular Rate, Rhythm Gastrointestinal: Soft Rectal: Deferred Comments [facility], [place] NAME: MARY KAY ASKEW [facility] REC#: [id number] PT STATUS: REG ER : 1990 PHYSICIAN: BROOK WEAVER MD ADMIT DATE: 07/10/22/ER Signed Date of Exam:07/10/22 CHEST 1 VIEW, AP/PA ONLY EXAMINATION: Chest, 1 view. HISTORY: SOB, productive cough, low sats. COMPARISON: 01/28/2021. FINDINGS: Heart size and pulmonary vasculature are normal. There are mild interstitial opacities within the mid and lower lungs. No pleural effusion or pneumothorax. There is a right upper lobe density measuring 1.1 cm which is more distinct on today's exam than on 01/28/2021. This was visualized on the study of 08/04/2019 and is similar in size. The osseous structures are intact. IMPRESSION: Mild interstitial opacities within the mid and lower lungs which can be seen with atelectasis, pulmonary edema, or pneumonia. Dictated by: Dictated on workstation # [id number] Dict: 07/10/2253 Trans: 07/10/22918 [id number] Interpreted by: COLIN PENNY DO Electronically signed by: COLIN PENNY DO 07/10/22918 Assessment/Plan Assessment and Plan 1. Interstitial infiltrates consistent with pneumonia -She is placed on ceftriaxone as well as Zithromax -Respiratory therapy for albuterol treatments every 4 hours and 2 hours when necessary -Recheck CBC in the a.m. since today's white count is 18,000 2. Hypoxemia secondary to #1 -Nasal cannula oxygen to keep saturations greater than 93 percentile. Admission Diagnosis 1. Interstitial infiltrates consistent with pneumonia 2. Hypoxemia secondary to #1 Admission Status: Observation DAVE MAO MD Jul 10, 2022 18:42
[2022-07-10] MEDS: RT-ALBUTEROL/IPRATROPIUM 3 ML (DUONEB) VIAL INH SCH ×2 (18:54→22:03)
[2022-07-10 19:24] VITALS: BP 138/84
[2022-07-10] MEDS: methylPREDNISolone 125 MG (Solu-MEDROL) VIAL IV SCH (21:15)
[2022-07-10] MEDS: CATHETER FLUSH 10 ML SYR IVP SCH (21:15)
[2022-07-10 23:42] VITALS: BP 133/75
[2022-07-11] VITALS (7 sets, daily range): BP systolic 107–144; BP diastolic 62–80
[2022-07-11] MEDS: RT-ALBUTEROL/IPRATROPIUM 3 ML (DUONEB) VIAL INH SCH ×6 (02:52→22:03)
[2022-07-11] MEDS: PRENATAL VITAMIN 1 EA TAB PO SCH (05:39)
[2022-07-11] MEDS: methylPREDNISolone 125 MG (Solu-MEDROL) VIAL IV SCH ×3 (05:40→21:24)
[2022-07-11] MEDS: CATHETER FLUSH 10 ML SYR IVP SCH ×3 (05:40→21:24)
[2022-07-11 06:01] LABS: BASOPHILS % (AUTO) 0 % (0-10); EOSINOPHILS % (AUTO) 0 % (0-10); HEMATOCRIT 38 % (35-52); HEMOGLOBIN 12.6 g/dL (11.5-16.0); LYMPHOCYTES # (AUTO) 1.6 10^3/uL (1.0-4.0); LYMPHOCYTES % (AUTO) 13 % (12-44); MEAN CORPUSCULAR HEMOGLOBIN 30 pg (25-34); MEAN CORPUSCULAR HGB CONC 33 g/dL (32-36); MEAN CORPUSCULAR VOLUME 89 fL (80-99); MEAN PLATELET VOLUME 10.1 fL (9.0-12.2); MONOCYTES # (AUTO) 0.3 10^3/uL (0.0-1.0); MONOCYTES % (AUTO) 2 % (0-12); NEUTROPHILS # (AUTO) 10.1 10^3/uL (1.8-7.8); NEUTROPHILS % (AUTO) 83 % (42-75); PLATELET COUNT 259 10^3/uL (130-400); WHITE BLOOD COUNT 12.3 10^3/uL (4.3-11.0)
[2022-07-11] MEDS ORDERED: NAPR-915 PO (09:36)
[2022-07-11] MEDS ORDERED: LORA10TA7 PO (09:36)
[2022-07-11] MEDS ORDERED: FLUT16SP22 NSEACH (09:36)
[2022-07-11] MEDS: AZITHROMYCIN 250 MG TAB (ZITHROMAX) PO SCH (10:17)
[2022-07-11] MEDS: cefTRIAXone 1 GM/50 ML (PRE-MIX) IV SCH (10:18)
--- NOTE | 2022-07-11 10:52 | Progress Note ---
Subjective Date Seen by a Provider: Jul 11, 2022 Time Seen by a Provider: 07:10 Subjective/Events-last exam Patient was awake upon entering room this morning. She was in no acute distress. She slept fair throughout the night. She is currently wearing nasal cannula oxygen. Her appetite is also fair. Objective Exam Vital Signs Date Time Temp Pulse Resp B/P (MAP) Pulse Ox O2 Delivery O2 Flow Rate FiO2 07/11/22 10:46 94 Nasal Cannula 2.00 07/11/22 08:00 Nasal Cannula 2.00 07/11/22 07:23 36.4 78 20 142/73 (96) 99 Nasal Cannula 2.00 07/11/22 07:06 94 Nasal Cannula 2.00 07/11/22 03:33 36.3 89 16 132/78 (96) 94 Nasal Cannula 2.00 07/11/22 02:52 94 Nasal Cannula 2.00 07/10/22 23:42 36.1 97 16 133/75 (94) 94 Nasal Cannula 2.00 07/10/22 22:04 92 Nasal Cannula 2.00 07/10/22 20:16 Nasal Cannula 2.00 07/10/22 19:24 36.2 96 18 138/84 (102) 93 Nasal Cannula 2.00 07/10/22 18:54 96 Nasal Cannula 2.00 07/10/22 16:22 90 98 28 07/10/22 15:40 36.8 92 18 117/76 (90) 95 Room Air 07/10/22 15:38 98 Nasal Cannula 2.00 07/10/22 15:34 90 22 125/80 98 Nasal Cannula 2.00 07/10/22 12:06 93 Room Air I & O 07/11/22 07:00 Intake Total 1036 ml Balance 1036 ml Capillary Refill : Less Than 3 Seconds General Appearance: No Apparent Distress Respiratory: Rales (In bases), Wheezing (Faint) Cardiovascular: Regular Rate, Rhythm Results Lab Laboratory Tests 07/11/22 05:36: White Blood Count 12.3H, Red Blood Count 4.25, Hemoglobin 12.6, Hematocrit 38, Mean Corpuscular Volume 89, Mean Corpuscular Hemoglobin 30, Mean Corpuscular Hemoglobin Concent 33, Red Cell Distribution Width 13.7, Platelet Count 259, Mean Platelet Volume 10.1, Immature Granulocyte % (Auto) 2, Neutrophils (%) (Auto) 83H, Lymphocytes (%) (Auto) 13, Monocytes (%) (Auto) 2, Eosinophils (%) (Auto) 0, Basophils (%) (Auto) 0, Neutrophils # (Auto) 10.1H, Lymphocytes # (Auto) 1.6, Monocytes # (Auto) 0.3, Eosinophils # (Auto) 0.0, Basophils # (Auto) 0.0, Immature Granulocyte # (Auto) 0.3H Assessment/Plan Assessment/Plan Assess & Plan/Chief Complaint 1. Interstitial infiltrates consistent with pneumonia -She is placed on ceftriaxone as well as Zithromax -Respiratory therapy for albuterol treatments every 4 hours and 2 hours when necessary -Recheck CBC in the a.m. since today's white count is 18,000 07/11 -Patient is not with any respiratory distress this morning -Her saturation when taken off the nasal cannula oxygen did drop again to 8890 percentile -She is currently on day #2 of ceftriaxone as well as Zithromax -Continue with the Solu-Medrol today as well. Perhaps tomorrow taper to oral 2. Hypoxemia secondary to #1 -Nasal cannula oxygen to keep saturations greater than 93 percentile. Clinical Quality Measures Admission Status Admission Dx 1. Interstitial infiltrates consistent with pneumonia 2. Hypoxemia secondary to #1 KIARA MAO MD Jul 11, 2022 10:51
[2022-07-11] MEDS ORDERED: DOCUSATE SODIUM 100 MG (COLACE) CAP PO SCH (21:00)
[2022-07-12] MEDS: RT-ALBUTEROL/IPRATROPIUM 3 ML (DUONEB) VIAL INH SCH ×3 (03:11→09:51)
[2022-07-12 04:10] VITALS: BP 118/58
[2022-07-12] MEDS: methylPREDNISolone 125 MG (Solu-MEDROL) VIAL IV SCH (06:04)
[2022-07-12] MEDS: PRENATAL VITAMIN 1 EA TAB PO SCH (06:04)
[2022-07-12] MEDS: CATHETER FLUSH 10 ML SYR IVP SCH (06:05)
[2022-07-12 07:21] VITALS: BP 141/76
[2022-07-12] MEDS: AZITHROMYCIN 250 MG TAB (ZITHROMAX) PO SCH (09:26)
[2022-07-12] MEDS: cefTRIAXone 1 GM/50 ML (PRE-MIX) IV SCH (09:26)
[2022-07-12] MEDS ORDERED: PRD20T PO (11:01)
[2022-07-12] MEDS ORDERED: ALBU2.5V4 INH (11:01)
[2022-07-12] MEDS ORDERED: AZIT250T12 PO (11:01)
--- NOTE | 2022-07-12 11:03 | Discharge Inst-Simple/Standard ---
Discharge Inst-Standard Reconcile Patient Problems Problems Reviewed?: Yes Discharge Medications New, Converted or Re-Newed RX: Transmitted to Pharmacy ([facility] ) Patient Instructions/Follow Up Plan of Care/Instructions/FU: Take Prednisone as 2 daily for 3 days then 1 daily for 3 days. Follow up with Dr Mao within 5 days Activity as Tolerated: Yes Discharge Diet: Regular Diet Return to The Hospital For: shortness of breath KIARA MAO MD Jul 12, 2022 11:03
--- NOTE | 2022-07-12 11:04 | Discharge Summary ---
Diagnosis/Chief Complaint Date of Admission Jul 10, 2022 at 13:25 Date of Discharge Discharge Date: Jul 12, 2022 Admission Diagnosis Admission Diagnosis 1. Interstitial Pneumonia 2. Hypoxia due to #1 Discharge Diagnosis 1. Interstitial Pneumonia 2. Hypoxia due to #1 Reason Hospital Visit Bridgett is a 31-year-old female who presented to the emergency department with a cough that she has had since April. She had been recently treated through my office with antibiotics and reported she had improved overall. On the morning of admission she became short of breath as well as having dizziness. She had been taking vrbe-dnc-fzvsjfr cough suppressants without much improvement. Her cough is somewhat productive of phlegm. She was supposed to have an x-ray performed a few weeks ago but she did not go in to have it performed. There is no reports of chest pain or any blood clotting disorders. She has quit cigarette smoking. Discharge Summary Hospital Course Hospital Course 1. Interstitial infiltrates consistent with pneumonia -She is placed on ceftriaxone as well as Zithromax on admit -Respiratory therapy for albuterol treatments every 4 hours and 2 hours when necessary -Recheck CBC in the a.m. since today's white count is 18,000 07/11 -Patient is not with any respiratory distress this morning -Her saturation when taken off the nasal cannula oxygen did drop again to 8890 percentile -She is currently on day #2 of ceftriaxone as well as Zithromax -Continue with the Solu-Medrol today as well. Perhaps tomorrow taper to oral 07/12 -patient feeling much better. Oxygen sats on Room air lower 90percentile and she is in no distress. 2. Hypoxemia secondary to #1 -Nasal cannula oxygen to keep saturations greater than 93 percentile. Labs Laboratory Tests 07/10/22 08:16: White Blood Count 16.8H, Neutrophils (%) (Auto) 83H, Lymphocytes (%) (Auto) 10L, Neutrophils # (Auto) 14.0H, D-Dimer 0.96H, Carbon Dioxide Level 20L, Anion Gap 15H, Glucose Level 123H 07/10/22 08:40: 07/11/22 05:36: White Blood Count 12.3H, Neutrophils (%) (Auto) 83H, Neutrophils # (Auto) 10.1H, Immature Granulocyte # (Auto) 0.3H Procedures None. Discharge Physical Examination Allergies: Coded Allergies: No Known Drug Allergies (Unverified , 08/05/19) Vitals & I&Os Vital Signs Date Time Temp Pulse Resp B/P (MAP) Pulse Ox O2 Delivery O2 Flow Rate FiO2 07/12/22 11:00 07/12/22 09:53 96 Nasal Cannula 2.00 07/12/22 07:21 36.5 70 18 07/10/22 16:22 28 General Appearance: No Acute Distress HEENT: Atraumatic Respiratory: Clear to Auscultation Cardiovascular: Regular Rate Abdominal: Soft Skin: No Rashes Neuro: Normal Speech Psych/Mental Status: Mental Status NL Discharge Home Medications Reviewed and agree with Discharge Medication list on patient's Discharge Instruction sheet Instructions to Patient/Family Please see electronic discharge instructions given to patient. KIARA MAO MD Jul 12, 2022 11:04
== END 2022-07-12 10:55 | disposition home or self-care (01) ==
LOC: EDUNIT# 07:36 → ER 07:39 → UNDOADMOB 13:25 → 4TH 13:25 → UNDODISOB 07-12 10:55
PROVIDERS: ADMIT Family Medicine; ATTEND Family Medicine
DX: J84.9 Interstitial pulmonary disease, unspecified (principal); R09.02 Hypoxemia; Z87.891 Personal history of nicotine dependence; Z28.310 Unvaccinated for COVID-19
CPT/HCPCS: 71045; 71275; 80048; 84703; 85007; 85025; 85027; 85379; 87070; 87077; 87185; 87205; 87636; 94640 ×3; 94664; 94760; 96376 ×3; 99283; G0378; 36415; 96361; 96374; 96375

== ENCOUNTER 2022-08-29 12:48 | Emergency (ER) | payer MEDICAID ==
[~2022-08-29] VITALS: Ht 165 cm; Wt 117.0 kg
[~2022-08-29 12:48] MED LIST changes: +ALBU2.5V4 INH; +ALBU8.5H6 INH; +AZIT250T12 PO; +FLUT16SP22 NSEACH; +LIDO15SO6 MM; -LIDO20SO23 MM; +PROM118S5 PO
[2022-08-29 13:10] VITALS: BP 123/82
--- NOTE | 2022-08-29 14:42 | ED Cough/URI ---
General Chief Complaint: Cough/Cold/Flu Symptoms Stated Complaint: SOB | DEEP COUGH Nursing Triage Note: PT STATES HAS BEEN COUGHING, DENIES FEVERS, STATES HAS HAD PNEM IN JUN 2022 Source: patient Exam Limitations: no limitations (GALINA SANTANA) History of Present Illness Date Seen by Provider: Aug 29, 2022 Time Seen by Provider: 14:40 Initial Comments Patient is a 31-year-old female with a history of pneumonia presents ED with a wet productive cough over the past 2 days. She reports greenish sputum production with shortness of breath and chest discomfort with the cough. She denies of any sharp chest pain. She states the pain hurts when she coughs or takes a deep breath. She denies of any nausea, vomiting, diarrhea, fever, chills, sore throat or ear pain. Patient has been taking loratadine. She denies any recent travels or surgeries. She states this feels very similar to her last time she had pneumonia and was admitted. (GALINA SANTANA) Allergies and Home Medications Allergies Coded Allergies: No Known Drug Allergies (Unverified , 08/05/19) Patient Home Medication List Home Medication List Reviewed: Yes (GALINA SANTANA) Albuterol Sulfate (Albuterol Sulfate) 2.5 Mg/3 Ml (0.083 %) Vial.neb, 2.5 MG INH Q4H Prescribed by: KIARA MAO on 07/12/22 1101 Azithromycin (Azithromycin) 250 Mg Tablet, 250 MG PO DAILY Prescribed by: KIARA MAO on 07/12/22 1101 Azithromycin (Azithromycin) 250 Mg Tablet, 250 MG PO UD Prescribed by: MARS MARTINEZ on 08/29/22 1533 Fluticasone Propionate (Fluticasone Propionate) 50 Mcg/Actuation [place].susp, 1 SPRAY NSEACH BID PRN for CONGESTION, (Reported) Entered as Reported by: SELMA FAULKNER on 07/11/22 0936 Loratadine (Loratadine) 10 Mg Tablet, 10 MG PO HS, (Reported) Entered as Reported by: SELMA FAULKNER on 07/11/22 0936 Naproxen (Naproxen) 500 Mg Tablet, 500 MG PO BID PRN for PAIN-MILD (1-4), (Reported) Entered as Reported by: SELMA FAULKNER on 07/11/22 0936 Prednisone (Prednisone) 20 Mg Tab, 20 MG PO DAILY Prescribed by: KIARA MAO on 07/12/22 1101 Review of Systems Review of Systems Constitutional: No chills, No diaphoresis; malaise, weakness EENTM: No blurred vision, No double vision Respiratory: cough, short of breath Cardiovascular: chest pain Gastrointestinal: No abdominal pain, No diarrhea, No nausea, No vomiting Genitourinary: No decreased output, No dysuria, No frequency Musculoskeletal: No back pain, No joint pain Skin: No change in color (GALINA SANTANA) All Other Systems Reviewed Negative Unless Noted: Yes (GALINA SANTANA) Past Vmziaya-Mrxmxl-Ytyhuf Hx Patient Social History Tobacco Use?: No Substance use?: No Alcohol Use?: No Pt feels they are or have been: No (GALINA SANTANA) Immunizations Up To Date Tetanus Booster (TDap): Unknown PED Vaccines UTD: Yes (GALINA SANTANA) Seasonal Allergies Seasonal Allergies: No (GALINA SANTANA) Past Medical History Surgery/Hospitalization HX: APPY, GANG CYST L WRIST, GB, COLONOSCOPY Surgeries: Yes (ganglion cyst on L wrist ) Appendectomy, Gallbladder, Orthopedic Respiratory: No Cardiac: Yes High Cholesterol, Hypertension Neurological: Yes Headaches /Migraines Reproductive Disorders: Yes Female Reproductive Disorders: Menstrual Problems Genitourinary: No Gastrointestinal: Yes (ANAL FISSURE; CHOLECYSTECTOMY 2017) Gastroesophageal Reflux, Hemorrhoids, Polyps, Gall Bladder Disease, Irritable Bowel Musculoskeletal: Yes (LEFT WRIST GANGLION CYST REMOVED) Endocrine: No HEENT: Yes (DENTAL CARIES) Cancer: No Psychosocial: Yes Anxiety, Depression Integumentary: No Recent Skin Changes Blood Disorders: No Adverse Reaction/Blood Tranf: No (GALINA SANTANA) Family Medical History Patient reports no known family medical history. No Pertinent Family Hx SOCIAL HISTORY: -ETOH -DRUGS -SMOKING PAST SURGICAL HISTORY: -CHOLECYSTECTOMY 04/01/[address] MCKEON -COLONOSCOPY/POLYPECTOMY O BY DR. MCKEON -EGD 03/09/[address] MCKEON -LEFT WRIST GANGLION CHST BY DR. MCKEON 2015 -APPENDECTOMY (GALINA SANTANA) Physical Exam Vital Signs - First Documented 08/29/22 13:10 Temp 36.9 Pulse 91 Resp 20 B/P (MAP) 123/82 (96) Pulse Ox 98 (KYLE ARCE MD) Capillary Refill : Less Than 3 Seconds (GALINA SANTANA) Height: 5'4.00" Weight: 255lbs. 0oz. 115.472609th; 42.00 BMI Method:Stated General Appearance: WD/WN, no apparent distress Eyes: Bilateral Eye Normal Inspection, Bilateral Eye PERRL, Bilateral Eye EOMI, Bilateral Eye Abnormal EOM HEENT: PERRL/EOMI, normal ENT inspection, TMs normal, pharynx normal Neck: non-tender, full range of motion, supple Respiratory: chest non-tender, lungs clear, normal breath sounds, no respiratory distress Cardiovascular: regular rate, rhythm, no edema, no gallop, no JVD Gastrointestinal: normal bowel sounds, non tender, soft Extremities: normal range of motion, non-tender Neurologic/Psychiatric: freezer 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 II-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 nml as tested, no motor/sensory deficits, alert, normal mood/affect, oriented x 3 Skin: normal color (GALINA SANTANA) Progress/Results/Core Measures Suspected Sepsis SIRS Temperature: Pulse: 91 Respiratory Rate: 20 Blood Pressure 123 /82 Mean: 96 (GALINA SANTANA) Results/Orders Lab Results Laboratory Tests Test 08/29/22 13:24 Range/Units Influenza Type A (RT-PCR) Not Detected Not Detecte Influenza Type B (RT-PCR) Not Detected Not Detecte SARS-CoV-2 RNA (RT-PCR) Not Detected Not Detecte (KYLE ARCE MD) My Orders Orders - KYLE ARCE MD Covid 19 Inhouse Test (08/29/22 13:10) Influenza A And B By Pcr (08/29/22 13:10) (KYLE ARCE MD) Vital Signs/I&O 08/29/22 13:10 Temp 36.9 Pulse 91 Resp 20 B/P (MAP) 123/82 (96) Pulse Ox 98 (KYLE ARCE MD) Vital Signs/I&O Capillary Refill : Less Than 3 Seconds (GALINA SANTANA) Blood Pressure Mean: 96 Departure Communication (PCP) History of pneumonia. Reviewed previous ER visits, hospitalist consult, testing. She states that this feels like when she had pneumonia. Patient with a cough with greenish sputum production. Chest discomfort with a cough. COVID and influenza was negative. She had no chest tenderness, abdominal tenderness. Afebrile with stable vital signs. History of smoking stopped last September. Denies of any abdominal pain. Exam otherwise benign. Chest x-ray was negative for pneumonia. Patient does not appear toxic or septic. Will discharge with conservative treatment such as cough medication, ibuprofen, Robitussin. If coughing becomes worse with fever and/or short of breath will prescribe azithromycin. Return precaution were discussed. (GALINA SANTANA) Impression Primary Impression: Upper respiratory infection Disposition: HOME, SELF-CARE Condition: Stable Departure-Patient Inst. Decision time for Depature: 15:32 (GALINA SANTANA) Referrals: KIARA MAO MD (PCP/Family) Primary Care Physician Patient Instructions: Upper Respiratory Infection ED Scripts Azithromycin (Azithromycin) 250 Mg Tablet 250 MG PO UD, #6 TAB TAKE 2 TABLETS ON DAY ONE THEN TAKE 1 TABLET DAILY FOR FOUR MORE DAYS Prov: GALINA SANTANA 08/29/22 ATTENDING PHYSICIAN NOTE: I was physically present as attending physician in the emergency department during the care of this patient, but I was not directly involved in the decision making or delivery of care for this patient. (KYLE ARCE MD) GALINA SANTANA Aug 29, 2022 14:42 KYLE ARCE MD Aug 30, 2022 09:23
--- NOTE | 2022-08-29 15:25 | Diagnostic Imaging Report ---
EXAMINATION: Chest, one view. HISTORY: Cough. COMPARISON: 07/10/2022. FINDINGS: The lung volumes are normal. No focal consolidation is seen. No large pleural effusion or pneumothorax is seen. The cardiomediastinal silhouette is normal in size and contour. No acute osseous abnormality is seen. IMPRESSION: 1. No focal consolidation or pleural effusion. Dictated by: Dictated on workstation # [id number]
[2022-08-29] MEDS ORDERED: AZIT250T12 PO (15:33)
== END 2022-08-29 15:40 | disposition home or self-care (01) ==
LOC: EDUNIT# 12:48 → ER 12:50
DX: J06.9 Acute upper respiratory infection, unspecified (principal); I10 Essential (primary) hypertension; F17.200 Nicotine dependence, unspecified, uncomplicated; Z20.822 Contact with and (suspected) exposure to COVID-19
CPT/HCPCS: 71045; 87636; 99285

== ENCOUNTER 2022-10-23 07:42 | Emergency (ER) | payer MEDICAID ==
[~2022-10-23] VITALS: Ht 162.5 cm; Wt 116.1 kg
[2022-10-23] MEDS ORDERED: ONDA8TAB13 SL (08:07)
--- NOTE | 2022-10-23 08:08 | ED General ---
General Stated Complaint: DIARRHEA | INDIGESTION | Source of Information: Patient Exam Limitations: No Limitations History of Present Illness Date Seen by Provider: October 23, 2022 Time Seen by Provider: 07:51 Initial Comments 31-year-old female who is otherwise healthy presents the emergency department today for diarrheal illness. Has diffuse abdominal cramping and loose stools over the last 48 hours. She has 11-month old at home with similar symptoms. She states she cannot go to the clinic due to a conflict with an ex. she states she has had 5 or 6 loose stools yesterday and a couple this morning. No nausea or vomiting. No fevers. All other systems reviewed and negative except documented per HPI. Voice recognition software was used to help create this chart Allergies and Home Medications Allergies Coded Allergies: No Known Drug Allergies (Unverified , 08/05/19) Patient Home Medication List Home Medication List Reviewed: Yes Albuterol Sulfate (Albuterol Sulfate) 2.5 Mg/3 Ml (0.083 %) Vial.neb, 2.5 MG INH Q4H Prescribed by: KIARA MAO on 07/12/22 1101 Azithromycin (Azithromycin) 250 Mg Tablet, 250 MG PO DAILY Prescribed by: KIARA MAO on 07/12/22 1101 Azithromycin (Azithromycin) 250 Mg Tablet, 250 MG PO UD Prescribed by: MARS MARTINEZ on 08/29/22 1533 Fluticasone Propionate (Fluticasone Propionate) 50 Mcg/Actuation [place].susp, 1 SPRAY NSEACH BID PRN for CONGESTION, (Reported) Entered as Reported by: SELMA FAULKNER on 07/11/22 0936 Loratadine (Loratadine) 10 Mg Tablet, 10 MG PO HS, (Reported) Entered as Reported by: SELMA FAULKNER on 07/11/22 0936 Naproxen (Naproxen) 500 Mg Tablet, 500 MG PO BID PRN for PAIN-MILD (1-4), (Reported) Entered as Reported by: SELMA FAULKNER on 07/11/22 0936 Prednisone (Prednisone) 20 Mg Tab, 20 MG PO DAILY Prescribed by: KIARA MAO on 07/12/22 1101 Review of Systems Review of Systems Constitutional: see HPI Past Jmdwyhv-Bmbqwo-Xuxpob Hx Patient Social History Tobacco Use?: No Use of E-Cig and/or Vaping dev: No Substance use?: No Immunizations Up To Date Tetanus Booster (TDap): Unknown PED Vaccines UTD: Yes Seasonal Allergies Seasonal Allergies: No Past Medical History Surgery/Hospitalization HX: APPY, GANG CYST L WRIST, GB, COLONOSCOPY Surgeries: Yes (ganglion cyst on L wrist ) Appendectomy, Gallbladder, Orthopedic Respiratory: No Cardiac: Yes High Cholesterol, Hypertension Neurological: Yes Headaches /Migraines Reproductive Disorders: Yes Female Reproductive Disorders: Menstrual Problems Genitourinary: No Gastrointestinal: Yes (ANAL FISSURE; CHOLECYSTECTOMY 2017) Gastroesophageal Reflux, Hemorrhoids, Polyps, Gall Bladder Disease, Irritable Bowel Musculoskeletal: Yes (LEFT WRIST GANGLION CYST REMOVED) Endocrine: No HEENT: Yes (DENTAL CARIES) Cancer: No Psychosocial: Yes Anxiety, Depression Integumentary: No Recent Skin Changes Blood Disorders: No Adverse Reaction/Blood Tranf: No Family Medical History Reviewed Nursing Family Hx Patient reports no known family medical history. No Pertinent Family Hx SOCIAL HISTORY: -ETOH -DRUGS -SMOKING PAST SURGICAL HISTORY: -CHOLECYSTECTOMY 04/01/[address] MCKEON -COLONOSCOPY/POLYPECTOMY O BY DR. MCKEON -EGD 03/09/[address] MCKEON -LEFT WRIST GANGLION CHST BY DR. MCKEON 2014 -APPENDECTOMY Physical Exam Vital Signs Capillary Refill : Height, Weight, BMI Height: 5'4.00" Weight: 255lbs. 0oz. [id number]; 42.00 BMI Method:Stated General Appearance: No Apparent Distress, WD/WN HEENT: Normal ENT Inspection, Pharynx Normal Neck: Supple Respiratory: Lungs Clear, Normal Breath Sounds, No Accessory Muscle Use, No Respiratory Distress Cardiovascular: Regular Rate, Rhythm, No Murmur, Normal Peripheral Pulses Gastrointestinal: Normal Bowel Sounds, No Organomegaly, Non Tender, Soft Extremity: Normal Capillary Refill, Normal Inspection, Normal Range of Motion, Non Tender, No Calf Tenderness Neurologic/Psychiatric: Alert, Oriented x3 Skin: Normal Color, Warm/Dry Progress/Results/Core Measures Suspected Sepsis SIRS Temperature: Pulse: Respiratory Rate: Blood Pressure / Mean: Results/Orders Vital Signs/I&O Capillary Refill : Departure Communication (Admissions) Patient is hemodynamically stable. No focal exam findings and symptoms consistent with viral illness especially given the most recent contacts in her home with similar symptoms. There is no evidence for acute surgical abdomen including appendicitis, acute cholecystitis, diverticulitis, pancreatitis. No indication for labs at this time. Conservative care and discharge. Impression Primary Impression: Viral syndrome Disposition: 01 HOME, SELF-CARE Condition: Stable Departure-Patient Inst. Referrals: KIARA MAO MD (PCP/Family) Primary Care Physician Patient Instructions: Diarrhea and Travelers' Diarrhea, Adult (DC) Add. Discharge Instructions: Increase your fluids at home and rest. Use Imodium should your symptoms last more than 48 hours. Have given you nausea medicine should you develop this I recommend you rock picker the medication and take it as needed by dissolving it under your tongue. Return to the emergency department for any severe concerns. Follow-up with your primary doctor for any nonemergent needs Scripts Ondansetron (Ondansetron Odt) 8 Mg Tab.rapdis 8 MG SL Q6H PRN for NAUSEA/VOMITING for 3 Days, #12 TAB Prov: RA NOBLE DO 10/23/22 RA NOBLE DO October 23, 2022 08:08
[2022-10-23 08:19] VITALS: BP 139/80
== END 2022-10-23 08:19 | disposition home or self-care (01) ==
LOC: EDUNIT# 07:42 → ER 07:44
DX: B34.9 Viral infection, unspecified (principal); R19.7 Diarrhea, unspecified; R10.84 Generalized abdominal pain
CPT/HCPCS: 99281

== ENCOUNTER 2023-01-25 17:19 | Emergency (ER) | payer MEDICAID ==
[~2023-01-25] VITALS: Ht 165.1 cm; Wt 110.7 kg
[~2023-01-25 17:19] MED LIST changes: +LIDO15SO3 MM; -LIDO15SO6 MM; +ONDA8TAB13 SL
[2023-01-25] MEDS ORDERED: ASPIRIN 81 MG CHEWABLE TABLET PO ONE (17:45)
[2023-01-25 17:49] LABS: BASOPHILS % (AUTO) 1 % (0-10); EOSINOPHILS # (AUTO) 0.1 10^3/uL (0.0-0.3); EOSINOPHILS % (AUTO) 2 % (0-10); HEMATOCRIT 38 % (35-52); HEMOGLOBIN 12.9 g/dL (11.5-16.0); LYMPHOCYTES # (AUTO) 2.2 10^3/uL (1.0-4.0); LYMPHOCYTES % (AUTO) 37 % (12-44); MEAN CORPUSCULAR HEMOGLOBIN 30 pg (25-34); MEAN CORPUSCULAR HGB CONC 34 g/dL (32-36); MEAN CORPUSCULAR VOLUME 88 fL (80-99); MEAN PLATELET VOLUME 9.6 fL (9.0-12.2); MONOCYTES # (AUTO) 0.3 10^3/uL (0.0-1.0); MONOCYTES % (AUTO) 5 % (0-12); NEUTROPHILS # (AUTO) 3.4 10^3/uL (1.8-7.8); NEUTROPHILS % (AUTO) 56 % (42-75); PLATELET COUNT 211 10^3/uL (130-400); WHITE BLOOD COUNT 6.1 10^3/uL (4.3-11.0)
[2023-01-25 18:06] LABS: PROTHROMBIN TIME PATIENT 13.2 SEC (12.2-14.7)
[2023-01-25 18:07] LABS: ALBUMIN 4.2 GM/DL (3.2-4.5); CHLORIDE 108 MMOL/L (98-107); POTASSIUM 3.8 MMOL/L (3.6-5.0); SODIUM 141 MMOL/L (135-145)
--- NOTE | 2023-01-25 18:07 | Diagnostic Imaging Report ---
EXAMINATION: Chest 1 view. HISTORY: Chest pain. COMPARISON: 08/29/2022. FINDINGS: Heart size and pulmonary vasculature are normal. The lungs are clear without consolidation, pleural effusion or pneumothorax. The osseous structures are intact. IMPRESSION: No acute radiographic abnormality in the chest. Dictated by: Dictated on workstation # [id number]
[2023-01-25 18:08] LABS: AMYLASE 29 U/L (25-125)
[2023-01-25 18:09] LABS: GLUCOSE 104 MG/DL (70-105); TOTAL PROTEIN 7.1 GM/DL (6.4-8.2)
[2023-01-25 18:10] LABS: CARBON DIOXIDE 23 MMOL/L (21-32)
[2023-01-25 18:11] LABS: BILIRUBIN,TOTAL 0.6 MG/DL (0.1-1.0)
[2023-01-25 18:12] LABS: ALKALINE PHOSPHATASE 82 U/L (40-136)
[2023-01-25 18:13] LABS: CREATININE SERUM 0.76 MG/DL (0.60-1.30); GFR ESTIMATED 107
[2023-01-25 18:14] LABS: BUN/CREATININE RATIO 11
[2023-01-25 18:16] LABS: ALANINE AMINOTRANSFERASE 14 U/L (0-55)
[2023-01-25 18:17] LABS: LIPASE 34 U/L (8-78)
[2023-01-25 18:24] LABS: CREATINE KINASE MB 1.1 NG/ML (<6.6)
--- NOTE | 2023-01-25 18:24 | ED Chest Pain ---
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 PT ORIGINALLY STATES THAT "SOMETHING'S UP WITH MY BLOOD PRESSURE." PT THEN REPORTS CHEST PAIN. PT STATES SHE HAS HAD CHEST PAIN 2-3 TIMES PER WEEK SINCE 2015. PT REPORTS SHE HAS NOT SEEN HER PCP OR ARCHITECT INTERNSHIP FOR THIS C/O. PT REPORTS SHE IS SUPPOSED TO SEE DR CARRERO FOR PALPITATIONS. PT REPORTS PAIN IS WORSE TODAY. Source: patient, old records History of Present Illness Date Seen by Provider: Jan 25, 2023 Time Seen by Provider: 17:40 Allergies and Home Medications Allergies Coded Allergies: No Known Drug Allergies (Unverified , 08/05/19) Patient Home Medication List Albuterol Sulfate (Albuterol Sulfate) 2.5 Mg/3 Ml (0.083 %) Vial.neb, 2.5 MG INH Q4H Prescribed by: KIARA MAO on 07/12/22 1101 Azithromycin (Azithromycin) 250 Mg Tablet, 250 MG PO DAILY Prescribed by: KIARA MAO on 07/12/22 1101 Azithromycin (Azithromycin) 250 Mg Tablet, 250 MG PO UD Prescribed by: MARS MARTINEZ on 08/29/22 1533 Fluticasone Propionate (Fluticasone Propionate) 50 Mcg/Actuation [place].susp, 1 SPRAY NSEACH BID PRN for CONGESTION, (Reported) Entered as Reported by: SELMA FAULKNER on 07/11/22 0936 Loratadine (Loratadine) 10 Mg Tablet, 10 MG PO HS, (Reported) Entered as Reported by: SELMA FAULKNER on 07/11/22 0936 Naproxen (Naproxen) 500 Mg Tablet, 500 MG PO BID PRN for PAIN-MILD (1-4), (Reported) Entered as Reported by: SELMA FAULKNER on 07/11/22 0936 Ondansetron (Ondansetron Odt) 8 Mg Tab.rapdis, 8 MG SL Q6H PRN for NAUSEA/VOMITING Prescribed by: RA NOBLE MD on 10/23/22 0807 Pantoprazole Sodium (Protonix) 40 Mg Tablet.dr, 40 MG PO DAILY Prescribed by: ISIDRO ESQUEDA on 01/25/23 1832 Prednisone (Prednisone) 20 Mg Tab, 20 MG PO DAILY Prescribed by: KIARA MAO on 07/12/22 1101 Past Xlqjjdc-Jsodfr-Nscipv Hx Patient Social History Tobacco Use?: No Smoking Status: Never a Smoker Smokeless Tobacco Frequency: Never a User Use of E-Cig and/or Vaping dev: No Use of E-Cig and/or Vaping [place]: Never a User Substance use?: No Alcohol Use?: No Pt feels they are or have been: No Immunizations Up To Date Tetanus Booster (TDap): Unknown PED Vaccines UTD: Yes Seasonal Allergies Seasonal Allergies: No Past Medical History Surgery/Hospitalization HX: APPY, GANG CYST L WRIST, GB, COLONOSCOPY Surgeries: Yes (ganglion cyst on L wrist ) Appendectomy, Gallbladder, Orthopedic Respiratory: No Cardiac: Yes High Cholesterol, Hypertension Neurological: Yes Headaches /Migraines Reproductive Disorders: Yes Female Reproductive Disorders: Menstrual Problems Genitourinary: No Gastrointestinal: Yes (ANAL FISSURE; CHOLECYSTECTOMY 2017) Gastroesophageal Reflux, Hemorrhoids, Polyps, Gall Bladder Disease, Irritable Bowel Musculoskeletal: Yes (LEFT WRIST GANGLION CYST REMOVED) Endocrine: No HEENT: Yes (DENTAL CARIES) Cancer: No Psychosocial: Yes Anxiety, Depression Integumentary: No Recent Skin Changes Blood Disorders: No Adverse Reaction/Blood Tranf: No Family Medical History Patient reports no known family medical history. No Pertinent Family Hx SOCIAL HISTORY: -ETOH -DRUGS -SMOKING PAST SURGICAL HISTORY: -CHOLECYSTECTOMY 04/01/[address] MCKEON -COLONOSCOPY/POLYPECTOMY 2O BY DR. MCKEON -EGD 03/09/[address] MCKEON -LEFT WRIST GANGLION CHST BY DR. MCKEON 2014 -APPENDECTOMY Physical Exam Vital Signs Vital Signs - First Documented 01/25/23 17:30 Temp 36.5 Pulse 67 Resp 15 B/P (MAP) 125/78 (94) Pulse Ox 100 O2 Delivery Room Air Capillary Refill : Less Than 3 Seconds Height, Weight, BMI Height: 5'4.00" Weight: 255lbs. 0oz. 115.265566ji; 40.00 BMI Method:Stated Progress/Results/Core Measures Results/Orders Lab Results Laboratory Tests Test 01/25/23 17:41 Range/Units White Blood Count 6.1 4.3-11.0 10^3/uL Red Blood Count 4.30 3.80-5.11 10^6/uL Hemoglobin 12.9 11.5-16.0 g/dL Hematocrit 38 35-52 % Mean Corpuscular Volume 88 80-99 fL Mean Corpuscular Hemoglobin 30 25-34 pg Mean Corpuscular Hemoglobin Concent 34 32-36 g/dL Red Cell Distribution Width 14.1 10.0-14.5 % Platelet Count 211 130-400 10^3/uL Mean Platelet Volume 9.6 9.0-12.2 fL Immature Granulocyte % (Auto) 0 % Neutrophils (%) (Auto) 56 42-75 % Lymphocytes (%) (Auto) 37 12-44 % Monocytes (%) (Auto) 5 0-12 % Eosinophils (%) (Auto) 2 0-10 % Basophils (%) (Auto) 1 0-10 % Neutrophils # (Auto) 3.4 1.8-7.8 10^3/uL Lymphocytes # (Auto) 2.2 1.0-4.0 10^3/uL Monocytes # (Auto) 0.3 0.0-1.0 10^3/uL Eosinophils # (Auto) 0.1 0.0-0.3 10^3/uL Basophils # (Auto) 0.0 0.0-0.1 10^3/uL Immature Granulocyte # (Auto) 0.0 0.0-0.1 10^3/uL Prothrombin Time 13.2 12.2-14.7 SEC INR Comment 1.0 0.8-1.4 Activated Partial Thromboplast Time 29 24-35 SEC Sodium Level 141 135-145 MMOL/L Potassium Level 3.8 3.6-5.0 MMOL/L Chloride Level 108 H 98-107 MMOL/L Carbon Dioxide Level 23 21-32 MMOL/L Anion Gap 10 5-14 MMOL/L Blood Urea Nitrogen 8 7-18 MG/DL Creatinine 0.76 0.60-1.30 MG/DL Estimat Glomerular Filtration Rate 107 BUN/Creatinine Ratio 11 Glucose Level 104 70-105 MG/DL Calcium Level 9.0 8.5-10.1 MG/DL Corrected Calcium 8.8 8.5-10.1 MG/DL Magnesium Level 2.0 1.6-2.4 MG/DL Total Bilirubin 0.6 0.1-1.0 MG/DL Aspartate Amino Transf (AST/SGOT) 18 5-34 U/L Alanine Aminotransferase (ALT/SGPT) 14 0-55 U/L Alkaline Phosphatase 82 40-136 U/L Creatine Kinase MB 1.1 <6.6 NG/ML Myoglobin 22.2 10.0-92.0 NG/ML Troponin I < 0.028 <0.028 NG/ML B-Type Natriuretic Peptide 32.5 <100.0 PG/ML Total Protein 7.1 6.4-8.2 GM/DL Albumin 4.2 3.2-4.5 GM/DL Amylase Level 29 25-125 U/L Lipase 34 8-78 U/L My Orders Orders - ISIDRO ESQUEDA DO Ed Iv/Invasive Line Start (01/25/23 17:40) Ekg Tracing (01/25/23 17:40) Monitor-Rhythm Ecg Trace Only (01/25/23 17:40) Cbc With Automated Diff (01/25/23 17:40) Magnesium (01/25/23 17:40) Chest 1 View, Ap/Pa Only (01/25/23 17:40) Comprehensive Metabolic Panel (01/25/23 17:40) Myoglobin Serum (01/25/23 17:40) Protime With Inr (01/25/23 17:40) Partial Thromboplastin Time (01/25/23 17:40) O2 (01/25/23 17:40) Ed Iv/Invasive Line Start (01/25/23 17:40) Creatine Kinase Mb (01/25/23 17:40) Lipase (01/25/23 17:40) Amylase (01/25/23 17:40) Bnp [place] (01/25/23 17:40) Troponin I [place] (01/25/23 17:40) Aspirin Chewable Tablet (Aspirin Chewabl (01/25/23 17:45) Pantoprazole Tablet (Protonix Tablet) (01/25/23 18:30) Medications Given in ED Current Medications Medications Dose Ordered Sig/Jessica Route Start Time Stop Time Status Last Admin Dose Admin Aspirin 324 mg ONCE ONCE PO 01/25/23 17:45 01/25/23 17:46 DC 01/25/23 17:50 324 MG Vital Signs/I&O 01/25/23 8 17:30 17:30 Temp 36.5 Pulse 67 Resp 15 B/P (MAP) 125/78 (94) Pulse Ox 100 O2 Delivery Room Air Room Air Blood Pressure Mean: 94 Progress Progress Note : Progress Note GIVEN: -ASPIRIN DISCUSSED TEST RESULTS, ANTICIPATED COURSE, SYMPTOMATIC TREATMENT, NEED FOR FOLLOW UP AND RETURN PRECAUTIONS REVIEWED PRIOR RECORDS, INCLUDING ER VISITS, ADMITS/H&P'S/DISCHARGE SUMMARIES, TESTS/PROCEDURES Initial ECG Impression Date: Jan 25, 2023 Initial ECG Impression Time: 17:42 Initial ECG Rate: 64 Initial ECG Rhythm: Normal Sinus Initial ECG Intervals: Normal Initial ECG Impression: Normal Initial ECG Comparisson: Unchanged Comment INTERPRETED BY ME Diagnostic Imaging Comments CXR--PER RADIOLOGIST REPORT AT 1820 FINDINGS: Heart size and pulmonary vasculature are normal. The lungs are clear without consolidation, pleural effusion or pneumothorax. The osseous structures are intact. IMPRESSION: No acute radiographic abnormality in the chest. Reviewed: Reviewed by Me Departure Impression Primary Impression: Chest pain Additional Impression: Gastroesophageal reflux disease Disposition: HOME, SELF-CARE Condition: Improved Departure-Patient Inst. Decision time for Depature: 18:30 Referrals: KIARA MAO MD (PCP/Family) Primary Care Physician CARISSA CARRERO MD Patient Instructions: Chest Pain, Adult ED, Acid reflux and gastroesophageal reflux disease in adults Add. Discharge Instructions: FOLLOW UP WITH DR. CARRERO NEXT WEEK FOR FURTHER CARE RETURN TO ER IF SYMPTOMS RETURN OR WORSEN All discharge instructions reviewed with patient and/or family. Voiced un derstanding. Scripts Pantoprazole Sodium (Protonix) 40 Mg Tablet. 40 MG PO DAILY, #15 TAB Prov: ISIDRO ESQUEDA DO 01/25/23 ISIDRO ESQUEDA DO Jan 25, 2023 18:24
[2023-01-25] MEDS ORDERED: PANTOPRAZOLE 40 MG (PROTONIX) TAB PO ONE (18:30)
[2023-01-25] MEDS ORDERED: PANT40TA2 PO (18:32)
[2023-01-25 18:38] VITALS: BP 124/72
== END 2023-01-25 18:38 | disposition home or self-care (01) ==
LOC: EDUNIT# 17:19 → ER 17:21
DX: K21.9 Gastro-esophageal reflux disease without esophagitis (principal); Z90.49 Acquired absence of other specified parts of digestive tract; Z28.310 Unvaccinated for COVID-19
CPT/HCPCS: 36415; 71045; 80053; 82150; 82553; 83690; 83735; 83874; 83880; 84484; 85025; 85610; 85730; 93005; 93041

== ENCOUNTER 2023-05-19 16:06 | Emergency (ER) | payer MEDICAID ==
[~2023-05-19] VITALS: Ht 162.5 cm; Wt 112.9 kg
[~2023-05-19 16:06] MED LIST changes: +BROM118S61 PO; -D-ME118S33 PO; +DICY-11 PO; -DICY10CA12 PO; +FAMO-356 PO; -FAMO20TA3 PO; -MECL-149 PO; +MECL-291 PO
--- NOTE | 2023-05-19 16:32 | ED General ---
General Chief Complaint: General Problems/Pain Stated Complaint: POSS PREG, NEEDS CONFIRMATION AND ULTRASOUND Source of Information: Patient Exam Limitations: No Limitations (GALINA SANTANA) History of Present Illness Date Seen by Provider: May 19, 2023 Time Seen by Provider: 16:28 Initial Comments Patient is a 32-year-old female who presents to the ED wanting a test. She states her last menstrual cycle was April 07 and ended the . She states 2 weeks ago she had a negative blood draw for . She was seen at the clinic today and had a negative urine test for . They did order a blood test currently pending. She came to the ED requesting a ultrasound and test. She denies of any abdominal pain, vomit, diarrhea, fever, chills, vaginal bleeding, vaginal discharge, urinary symptoms. She has a history of 4 pregnancies in the past with 4 live births at home. She states she has gained 5 pounds over the past month. (GALINA SANTANA) Allergies and Home Medications Allergies Coded Allergies: No Known Drug Allergies (Unverified , 08/05/19) Patient Home Medication List Home Medication List Reviewed: Yes (GALINA SANTANA) Albuterol Sulfate (Albuterol Sulfate) 2.5 Mg/3 Ml (0.083 %) Vial.neb, 2.5 MG INH Q4H Prescribed by: KIARA RODRIGUEZ on 07/12/22 1101 Azithromycin (Azithromycin) 250 Mg Tablet, 250 MG PO DAILY Prescribed by: KIARA RODRIGUEZ on 07/12/22 1101 Azithromycin (Azithromycin) 250 Mg Tablet, 250 MG PO UD Prescribed by: MARS MARTINEZ on 08/29/22 1533 Fluticasone Propionate (Fluticasone Propionate) 50 Mcg/Actuation [place].susp, 1 SPRAY NSEACH BID PRN for CONGESTION, (Reported) Entered as Reported by: SELMA FAULKNER on 07/11/22 0936 Loratadine (Loratadine) 10 Mg Tablet, 10 MG PO HS, (Reported) Entered as Reported by: SELMA FAULKNER on 07/11/22 0936 Naproxen (Naproxen) 500 Mg Tablet, 500 MG PO BID PRN for PAIN-MILD (1-4), (Reported) Entered as Reported by: SELMA FAULKNER on 07/11/22 0936 Ondansetron (Ondansetron Odt) 8 Mg Tab.rapdis, 8 MG SL Q6H PRN for NAUSEA/VOMITING Prescribed by: RA NOBLE MD on 10/23/22 0807 Pantoprazole Sodium (Protonix) 40 Mg Tablet.dr, 40 MG PO DAILY Prescribed by: ISIDRO ESQUEDA on 01/25/23 1832 Prednisone (Prednisone) 20 Mg Tab, 20 MG PO DAILY Prescribed by: KIARA RODRIGUEZ on 07/12/22 1101 Sulfamethoxazole/Trimethoprim (Bactrim Ds Tablet) 1 Each Tablet, 1 EACH PO BID Prescribed by: Kim Mir on 03/20/23 1835 Review of Systems Review of Systems Constitutional: No chills, No diaphoresis EENTM: No ear pain, No blurred vision, No double vision Respiratory: No cough Cardiovascular: No chest pain Gastrointestinal: No abdominal pain, No diarrhea, No nausea, No vomiting Genitourinary: No decreased output, No discharge Musculoskeletal: No back pain, No joint pain Skin: No change in color, No change in hair/nails (GALINA SANTANA) All Other Systems Reviewed Negative Unless Noted: Yes (GALINA SANTANA) Past Nsphgyk-Gtxikg-Cjvbnj Hx Immunizations Up To Date Tetanus Booster (TDap): Unknown PED Vaccines UTD: Yes (GALINA SANTANA) Seasonal Allergies Seasonal Allergies: No (GALINA SANTANA) Past Medical History Surgery/Hospitalization HX: APPY, GANG CYST L WRIST, GB, COLONOSCOPY Surgeries: Yes (ganglion cyst on L wrist ) Appendectomy, Gallbladder, Orthopedic Respiratory: No Cardiac: Yes High Cholesterol, Hypertension Neurological: Yes Headaches /Migraines Reproductive Disorders: Yes Female Reproductive Disorders: Menstrual Problems Genitourinary: No Gastrointestinal: Yes (ANAL FISSURE; CHOLECYSTECTOMY 2018) Gastroesophageal Reflux, Hemorrhoids, Polyps, Gall Bladder Disease, Irritable Bowel Musculoskeletal: Yes (LEFT WRIST GANGLION CYST REMOVED) Endocrine: No HEENT: Yes (DENTAL CARIES) Cancer: No Psychosocial: Yes Anxiety, Depression Integumentary: No Recent Skin Changes Blood Disorders: No Adverse Reaction/Blood Tranf: No (GALINA SANTANA) Family Medical History Patient reports no known family medical history. No Pertinent Family Hx SOCIAL HISTORY: -ETOH -DRUGS -SMOKING PAST SURGICAL HISTORY: -CHOLECYSTECTOMY 04/01/[address] MCKEON -COLONOSCOPY/POLYPECTOMY O BY DR. MCKEON -EGD 03/09/[address] MCKEON -LEFT WRIST GANGLION CHST BY DR. MCKEON 2014 -APPENDECTOMY (GALINA SANTANA) Physical Exam Vital Signs Vital Signs - First Documented 05/19/23 16:18 Temp 36.7 Pulse 88 Resp 16 B/P (MAP) 133/89 (104) Pulse Ox 100 O2 Delivery Room Air (KYLE ARCE MD) Vital Signs Capillary Refill : (GALINA SANTANA) Height, Weight, BMI Height: 5'4.00" Weight: 255lbs. 0oz. 115.078947nh; 41.00 BMI Method:Stated General Appearance: No Apparent Distress, WD/WN Eyes: Bilateral Eye Normal Inspection, Bilateral Eye PERRL, Bilateral Eye EOMI HEENT: PERRL/EOMI, TMs Normal, Normal ENT Inspection, Pharynx Normal Neck: Full Range of Motion, Normal Inspection, Non Tender, Supple Respiratory: Chest Non Tender, Lungs Clear, Normal Breath Sounds, No Accessory Muscle Use, No Respiratory Distress Cardiovascular: Regular Rate, Rhythm, No Edema, No Gallop, No JVD, No Murmur Gastrointestinal: Normal Bowel Sounds, No Organomegaly, No Pulsatile Mass, Non Tender Extremity: Normal Capillary Refill, Normal Inspection, Normal Range of Motion Neurologic/Psychiatric: Alert, Oriented x3, No Motor/Sensory Deficits, Normal Mood/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, 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-XII Norm as Tested Skin: Normal Color, Warm/Dry (GALINA SANTANA) Progress/Results/Core Measures Suspected Sepsis SIRS Temperature: Pulse: Respiratory Rate: Blood Pressure / Mean: (GALINA SANTANA) Results/Orders Lab Results Laboratory Tests Test 05/19/23 16:30 Range/Units Urine Color YELLOW Urine Clarity CLEAR Urine pH 6.0 5-9 Urine Specific [place] >=1.030 1.016-1.022 Urine Protein NEGATIVE NEGATIVE Urine Glucose (UA) NEGATIVE NEGATIVE Urine Ketones NEGATIVE NEGATIVE Urine Nitrite NEGATIVE NEGATIVE Urine Bilirubin NEGATIVE NEGATIVE Urine Urobilinogen 0.2 < = 1.0 MG/DL Urine Leukocyte Esterase NEGATIVE NEGATIVE Urine RBC (Auto) NEGATIVE NEGATIVE Urine RBC 0-2 /HPF Urine WBC 0-2 /HPF Urine Squamous Epithelial Cells >50 H /HPF Urine Crystals PRESENT H /LPF Urine Amorphous Sediment FEW JESSY URATES H /LPF Urine Bacteria FEW H /HPF Urine Casts NONE /LPF Urine Mucus MODERATE H /LPF Urine Culture Indicated NO Urine Test NEGATIVE NEGATIVE (KYLE ARCE MD) Vital Signs/I&O 05/19/23 05/19/23 16:18 16:51 Temp 36.7 Pulse 88 88 Resp 16 16 B/P (MAP) 133/89 (104) 133/89 Pulse Ox 100 100 O2 Delivery Room Air Room Air (KYLE ARCE MD) Vital Signs/I&O Capillary Refill : (GALINA SANTANA) Departure Communication (PCP) Patient is concern for . Last menstrual cycle April 07. She has had a negative blood test as well as urine test. She follows Dr. Rodriguez. She had another blood draw done today. She was wanting an ultrasound. Suggest attempting a urinalysis which was negative for infection or . She has no current complaint. No vaginal bleeding, vaginal pain, urinary symptoms, abdominal pain fever, chills, chest pain or shortness of breath. At this time recommend following up with your INSTRUCTIONAL DESIGNER.. Do not have ultrasound at this time in the evening. No evidence of surgical abdomen. Vital signs stable. Return precaution were discussed. (GALINA SANTANA) Impression Primary Impression: Feared complaint without diagnosis Disposition: 01 HOME, SELF-CARE Condition: Stable Departure-Patient Inst. Decision time for Depature: 16:31 (GALINA SANTANA) Referrals: KIARA RODRIGUEZ MD (PCP/Family) Primary Care Physician Patient Instructions: General (DC) ATTENDING PHYSICIAN NOTE: I was physically present as attending physician in the emergency department during the care of this patient, but I was not directly involved in the decision making or delivery of care for this patient. (KYLE ARCE MD) GALINA SANTANA May 19, 2023 16:32 KYLE ARCE MD May 20, 2023 06:14
[2023-05-19 16:50] LABS: CLARITY,URINE CLEAR; COLOR,URINE YELLOW; PROTEIN,URINE NEGATIVE (NEGATIVE)
[2023-05-19 16:51] VITALS: BP 133/89
[2023-05-19 16:51] LABS: AMORPHOUS SEDIMENT,UR FEW AMOR URATES /LPF; BACTERIA,URINE FEW /HPF; BILIRUBIN,URINE NEGATIVE (NEGATIVE); GLUCOSE, URINE (UA) NEGATIVE (NEGATIVE); KETONES,URINE NEGATIVE (NEGATIVE); LEUKOCYTE ESTERASE ,URINE NEGATIVE (NEGATIVE); NITRITE,URINE NEGATIVE (NEGATIVE); RBC,URINE 0-2 /HPF; SQUAMOUS EPITHELIAL CELL,UR >50 /HPF; WBC,URINE 0-2 /HPF
== END 2023-05-19 16:51 | disposition home or self-care (01) ==
LOC: EDUNIT# 16:06 → ER 16:10
DX: Z32.02 Encounter for pregnancy test, result negative (principal); F17.200 Nicotine dependence, unspecified, uncomplicated
CPT/HCPCS: 81000; 84703; 99282

== ENCOUNTER → 2023-05-27 | Outpatient (CLI) | payer MEDICAID ==
--- NOTE | 2023-05-27 16:28 | Diagnostic Imaging Report ---
PROCEDURE: US PELVIC (NON OB) TECHNIQUE: Multiple real-time grayscale images were obtained over the pelvis in various projections transabdominally. INDICATION: Pelvic pain. COMPARISON: None FINDINGS: Uterus is anteverted and measures 8.8 x 5.4 x 4.3 cm. No suspicious myometrial masses are seen. Endometrial stripe is within normal limits and measures 9 mm in AP thickness. No gestational sac or other filling defect is seen within the endometrial canal. Visualized portions of the cervix show benign nabothian cyst. No adnexal masses or free fluid are seen. Ovaries have a normal sonographic appearance bilaterally. Right ovary measures 3.3 x 2.3 x 2 cm and left measures 5 x 3 x 2.5 cm. IMPRESSION: Unremarkable pelvic sonogram. Dictated by: Dictated on workstation # [id number]
== END ==
LOC: RAD 10:54
PROVIDERS: ATTEND Family Medicine
DX: R10.2 Pelvic and perineal pain (principal)
CPT/HCPCS: 76856

== ENCOUNTER → 2023-05-27 | Outpatient (CLI) | payer MEDICAID ==
--- NOTE | 2023-05-27 13:24 | Diagnostic Imaging Report ---
EXAMINATION: US Abdomen complete. TECHNIQUE: Multiple real-time grayscale images were obtained over the right upper quadrant in various projections. HISTORY: Abdominal swelling COMPARISON: None available. FINDINGS: The liver is increased in size. The liver is increased in echogenicity. No focal lesions are seen. The portal vein is patent with hepatopedal flow. Gallbladder is absent. Common duct measures 5 mm. There is no biliary ductal dilation. The visualized portions of the pancreas are normal. The right kidney is normal without hydronephrosis. The left kidney is normal without hydronephrosis. The aorta and inferior vena cava are normal. The spleen is normal. No ascites is seen. IMPRESSION: 1. Enlarged and steatotic liver. Dictated by: Dictated on workstation # [id number]
== END ==
LOC: RAD 09:25
PROVIDERS: ATTEND Family Medicine
DX: K76.0 Fatty (change of) liver, not elsewhere classified (principal)
CPT/HCPCS: 76700